=== PATIENT | male | born 1960 | race African-American/Black ===

== ENCOUNTER 2016-07-28 08:54 | Inpatient (IN) | payer OTHER, MEDICARE ==
[2016-07-28] MEDS ORDERED: FUROSEMIDE INJ/PF 40 MG/4 ML SDV IV ONE (09:45)
--- NOTE | 2016-07-28 09:45 | ER Document Report ---
ED General - General Chief Complaint: Shortness Of Breath Stated Complaint: SHORT OF BREATH Time seen by provider: 09:41 Mode of Arrival: Medic Information source: Patient Notes: 55-year-old male with 3 day history of worsening shortness of breath and diffuse swelling typical for exacerbations of anasarca that he had in the past. He also reports 3 days ago feeling a pop in the anterior portion of his left hip and now feels pain with flexion there. He denies fever, chills, nausea, vomiting, cough, earache, sore throat, chest pain, abdominal pain, or back pain. He does note he did swelling to his scrotum over the past 3 days which she says is unusual for his anasarca. Physical Exam: General: Alert, morbidly obese male with anasarca HEENT: Normocephalic. Atraumatic. PERRLA. Extraocular movements intact. Oropharynx clear. Neck: Supple. Non-tender. Respiratory: No respiratory distress. Clear and equal breath sounds bilaterally. Cardiovascular: Regular rate and rhythm. Abdominal: Normal Inspection. Soft, non-tender. No distension. Normal Bowel Sounds. . Patient is 3+ scrotal swelling but no fluctuance or crepitance erythema warmth bleeding or discharge to suggest infection. He has minimal discomfort with palpation bilaterally. Back: Non-tender. No deformity or step off. Extremities: Moves all four extremities. Upper extremities warm with 2+ pulses and no gross deformity Lower extremities have marked up otorhinorrhea and 4+ edema bilaterally. He has 2+ dorsalis pedis posterior tibial pulses and brisk capillary refill. Neurological: Oriented 3 answers questions appropriately moves all 4 extremities to command. Psychological: Normal affect. Normal Mood. Skin: Warm. Dry. Normal color. TRAVEL OUTSIDE OF THE [place] IN LAST 30 DAYS: No - Related Data Allergies/Adverse Reactions: No Known Allergies Allergy (Verified 07/28/16 09:39) Past Medical History - Social History Smoking Status: Current Some Day Smoker Chew tobacco use (# tins/day): No Frequency of alcohol use: None Drug Abuse: None Family History: Reviewed & Not Pertinent Patient has suicidal ideation: No Patient has homicidal ideation: No - Past Medical History Cardiac Medical History: Reports: Hx Atrial Fibrillation, Hx Congestive Heart Failure, Hx Coronary Artery Disease, Hx Hypercholesterolemia, Hx Hypertension, Hx Peripheral Vascular Disease, Hx Pulmonary Embolism Pulmonary Medical History: Reports: Hx COPD, Hx Sleep Apnea Renal/ Medical History: Reports: Hx Renal Insufficiency. Denies: Hx Peritoneal Dialysis GI Medical History: Reports: Hx Gastritis, Hx Ulcerative Colitis Musculoskeltal Medical History: Reports Hx Arthritis Psychiatric Medical History: Reports: Hx Depression Past Surgical History: Reports: Hx Tonsillectomy, Other - Tooth extraction - Immunizations Hx Diphtheria, Pertussis, Tetanus Vaccination: No Review of Systems - Review of Systems Constitutional: See HPI EENT: denies: Ear pain, Throat pain Cardiovascular: Edema. denies: Chest pain, Syncope Respiratory: Short of breath Gastrointestinal: denies: Abdominal pain, Nausea, Vomiting Genitourinary: denies: Burning, Dysuria Male Genitourinary: See HPI Musculoskeletal: denies: Back pain Skin: denies: Rash Hematologic/Lymphatic: denies: Swollen glands Neurological/Psychological: denies: Weakness, Numbness Physical Exam - Vital signs Vitals: Pulse Ox 97 07/28/16 09:00 Course - Re-evaluation Re-evalutation: 07/28/16 12:25 Radiologist reads chest x-ray showing right basilar infiltrate but by my review I believe that x-rays simply rotated. The patient has no white count left shift or fever here. His only mildly hypoxic which easily corrects with supplemental oxygen. He is diuresed but unknown amount with 80 mg of IV Lasix as well as the nursing staff was unable to catheterize him due to inability to identify landmarks and did not believe that an emergency department setting this warranted the dedication of physician and nursing resources necessary to get catheter in him. In any case the patient still says he feels too short of breath volume overloaded to go home. I discussed the case with Dr. Ny and he has agreed to admit the patient. - Vital Signs Vital signs: Temp Pulse Resp BP Pulse Ox 97.9 F 101 H 23 H 115/102 H 96 07/28/16 09:51 07/28/16 09:38 07/28/16 09:38 07/28/16 10:01 07/28/16 09:38 - Laboratory Result Diagrams: 07/28/16 09:09 07/28/16 09:09 Laboratory results interpreted by me: 07/28/16 07/28/16 07/28/16 09:09 09:09 09:09 Hgb 12.8 L MCHC 31.8 L RDW 17.5 H BUN 21 H Creatinine 1.62 H Est GFR ( Amer) 54 L Est GFR (Non-Af Amer) 45 L Glucose 63 L Total Bilirubin 3.2 H ALT 18 L NT-Pro-B Natriuret Pep 93397 H Albumin 3.4 L - Diagnostic Test Radiology reviewed: Image reviewed, Reports reviewed - EKG Interpretation by Me Additional EKG results interpreted by me: 07/28/16 12:25 EKG reviewed by myself shows atrial fibrillation ventricular rate of 108 with no acute changes and no significant change 06/11/2016 Discharge - Discharge Clinical Impression: Generalized edema Condition: Fair Disposition: ADMITTED INPATIENT [facility] Unit Admitted: Telemetry
[2016-07-28 10:17] LABS: ABSOLUTE EOSINOPHILS # (AUTO) 0.2 10^3/uL (0.0-0.6); ABSOLUTE LYMPHOCYTES (AUTO) 0.8 10^3/uL (0.5-4.7); ABSOLUTE MONOCYTES (AUTO) 0.5 10^3/uL (0.1-1.4); ABSOLUTE NEUT (AUTO) 2.4 10^3/uL (1.7-8.2); BASOPHILS % (AUTO) 1.2 % (0-2); EOSINOPHILS % (AUTO) 5.4 % (0-6); HEMATOCRIT 40.2 % (37.9-51.0); HEMOGLOBIN 12.8 g/dL (13.5-17.0); HGB HCT DIFFERENCE -1.8; LYMPHOCYTES % (AUTO) 19.7 % (13-45); MEAN CORPUSCULAR HEMOGLOBIN 27.1 pg (27.0-33.4); MEAN CORPUSCULAR HGB CONC 31.8 g/dL (32.0-36.0); MEAN CORPUSCULAR VOLUME 85 fl (80-97); MONOCYTES % (AUTO) 12.3 % (3-13); RED CELL DISTRIBUTION WIDTH 17.5 % (11.5-14.0); SEGMENTED NEUTROPHILS % (AUTO) 61.4 % (42-78)
[2016-07-28 10:43] LABS: ALANINE AMINOTRANSFERASE 18 U/L (21-72); ALBUMIN 3.4 g/dL (3.5-5.0); ALKALINE PHOSPHATASE 64 U/L (38-126); ANION GAP 16 (5-19); ASPARTATE AMINO TRANSFERASE 18 U/L (17-59); BILIRUBIN,TOTAL 3.2 mg/dL (0.2-1.3); BLOOD UREA NITROGEN 21 mg/dL (7-20); CARBON DIOXIDE 22 mmol/L (22-30); CHLORIDE 104 mmol/L (98-107); CREATINE KINASE 72 U/L (55-170); CREATININE RESULT 1.62 mg/dL (0.52-1.25); GLUCOSE 63 mg/dL (75-110); POTASSIUM 3.7 mmol/L (3.6-5.0); SODIUM 142.4 mmol/L (137-145); TOTAL PROTEIN 7.2 g/dL (6.3-8.2)
[2016-07-28 10:51] LABS: CREATINE KINASE MB 0.94 ng/mL (<4.55); TROPONIN I 0.022 ng/mL
[2016-07-28] MEDS: GUAIFENESIN/D-METHORPHAN (200-20 MG) SYRUP 10 ML PO PRN ×2 (15:55→23:17)
[2016-07-28] MEDS ORDERED: INFLUENZA ADLT QUAD (36MOS+) 2016-17 VAC 0.5 ML SYR IM PRN (16:09)
--- NOTE | 2016-07-28 16:28 | EKG REPORT ---
SEVERITY:- ABNORMAL ECG - ATRIAL FIBRILLATION INFERIOR INFARCT, OLD CONSIDER ANTERIOR INFARCT LATERAL LEADS ARE ALSO INVOLVED PROLONGED QT INTERVAL : Confirmed by: Juan Daniel Rodriguez MD 28-Jul-2016 16:28:35
[2016-07-28] MEDS ORDERED: APIXABAN 5 MG TABLET PO SCH (20:30)
[2016-07-28] MEDS ORDERED: MAGNESIUM OXIDE 400 MG TABLET PO SCH (20:30)
[2016-07-28] MEDS ORDERED: SIMVASTATIN 10 MG TABLET PO ONE (21:30)
[2016-07-28] MEDS: MAGNESIUM OXIDE 400 MG TABLET PO SCH (21:42)
[2016-07-28] MEDS: APIXABAN 5 MG TABLET PO SCH (21:43)
[2016-07-28] MEDS: METOPROLOL SUCCINATE 25 MG TAB.SR.24H PO SCH (21:43)
[2016-07-29] MEDS: NORMAL SALINE 250 ML with FUROSEMIDE 250 MG IV PRN ×4 (07:20→20:06)
[2016-07-29] MEDS: GUAIFENESIN/D-METHORPHAN (200-20 MG) SYRUP 10 ML PO PRN ×2 (07:40→17:13)
[2016-07-29] MEDS: METOPROLOL SUCCINATE 25 MG TAB.SR.24H PO SCH ×2 (10:10→21:20)
[2016-07-29] MEDS: MAGNESIUM OXIDE 400 MG TABLET PO SCH ×2 (10:10→21:17)
[2016-07-29] MEDS: APIXABAN 5 MG TABLET PO SCH ×2 (10:10→21:17)
[2016-07-29] MEDS: SIMVASTATIN 10 MG TABLET PO SCH (17:13)
--- NOTE | 2016-07-29 19:02 | PDOC H&P ---
[id number] History of Present Illness: ELEONORA SHEFFIELD is a 55 year old male with morbid obesity, chronic diastolic heart failure, nephrotic syndrome. He came to the emergency room because of shortness of breath and tremendous anasarca. He was recently admitted in this hospital on 06/11/2016 when he presented in a similar fashion shortness of breath, he was treated with furosemide infusion. Patient is extremely obese with body mass index 56.8. He has tremendous large abdomen. In the emergency room attempt was made to insert a Morales catheter, but it was not succesful. Past Medical History Cardiac Medical History: Reports: Atrial Fibrillation, Congestive Heart Failure , Coronary Artery Disease, Hyperlipidema, Hypertension, Peripheral Vascular Disease, Pulmonary Embolism Pulmonary Medical History: Reports: Chronic Obstructive Pulmonary Disease (COPD) , Sleep Apnea Musculoskeltal Medical History: Reports: Arthritis Psychiatric Medical History: Reports: Depression Past Surgical History Past Surgical History: Reports: Tonsillectomy, Other - Tooth extraction Social History Smoking Status: Current Some Day Smoker Frequency of Alcohol Use: None Hx Recreational Drug Use: No Drugs: None Hx Prescription Drug Abuse: No Family History Family History: Reviewed & Not Pertinent Parental Family History Reviewed: Yes Children Family History Reviewed: Yes Sibling(s) Family History Reviewed.: Yes Medication/Allergy Home Medications: Apixaban [Eliquis 5 mg Tablet] 5 mg PO BID 07/28/16 Furosemide [Lasix 40 mg Tablet] 40 mg PO TID 07/28/16 Magnesium Oxide [Mag-Ox 400 mg Tablet] 400 mg PO BID 07/28/16 Metoprolol Succinate [Toprol Xl 25 mg Tab.sr] 25 mg PO Q12 07/28/16 Simvastatin [Zocor 20 mg Tablet] 20 mg PO QPM 07/28/16 Allergies/Adverse Reactions: No Known Allergies Allergy (Verified 07/28/16 09:39) Review of Systems Constitutional: PRESENT: night sweats, weight gain Cardiovascular: PRESENT: orthropnea Respiratory: PRESENT: cough, dyspnea Gastrointestinal: PRESENT: bloating Neurological: PRESENT: abnormal gait Hematologic/Lymphatic: PRESENT: easy bruising Physical Exam Vital Signs: Temp Pulse Resp BP Pulse Ox 97.5 F 91 16 101/67 94 07/29/16 16:11 07/29/16 16:11 07/29/16 16:11 07/29/16 16:11 07/29/16 16:11 Intake & Output 07/28/16 07/29/16 07/30/16 06:59 06:59 06:59 Intake Total 780 574 Balance 780 574 Weight 189.9 kg General appearance: PRESENT: morbidly obese Eye exam: PRESENT: PERRLA Neck exam: PRESENT: other Respiratory exam: PRESENT: clear to auscultation dell Cardiovascular exam: PRESENT: +S1, +S2 GI/Abdominal exam: PRESENT: hypoactive bowel sounds Extremities exam: PRESENT: joint swelling, pedal edema, other Neurological exam: PRESENT: alert Results Impressions: Chest X-Ray 07/28/16 09:10 IMPRESSION: Right lower lobe aspiration or pneumonia. Possible peritracheal mass. Pelvis X-Ray 07/28/16 09:39 IMPRESSION: No acute findings in the pelvis. Venous Doppler Study 07/28/16 09:39 IMPRESSION: LIMITED STUDY. NO EVIDENCE DVT OR SVT IN THE LEFT LEG. Assessment & Plan - Diagnosis (1) Anasarca Is this a current diagnosis for this admission?: YesPlan: This is from combination of nephrotic syndrome, severe morbid obesity, chronic diastolic heart failure, he will be treated with intravenous furosemide infusion (2) Morbid obesity Qualifiers: Obesity type: due to excess calories Qualified Code(s): E66.01 - Morbid (severe) obesity due to excess calories Is this a current diagnosis for this admission?: Yes (3) Nephrotic syndrome Is this a current diagnosis for this admission?: Yes (4) Chronic diastolic heart failure Is this a current diagnosis for this admission?: Yes (5) Paroxysmal atrial fibrillation Is this a current diagnosis for this admission?: Yes
[2016-07-30] MEDS: METOPROLOL SUCCINATE 25 MG TAB.SR.24H PO SCH ×2 (09:39→22:52)
[2016-07-30] MEDS: MAGNESIUM OXIDE 400 MG TABLET PO SCH ×2 (09:39→22:52)
[2016-07-30] MEDS: APIXABAN 5 MG TABLET PO SCH ×2 (09:39→22:52)
[2016-07-30] MEDS: GUAIFENESIN/D-METHORPHAN (200-20 MG) SYRUP 10 ML PO PRN ×2 (09:40→19:45)
[2016-07-30] MEDS: NORMAL SALINE 250 ML with FUROSEMIDE 250 MG IV PRN ×4 (09:53→22:52)
--- NOTE | 2016-07-30 16:47 | Physician Advisory Note ---
Physician Advisor ProgressNote .: Pursuant to the plan for [facility], I have reviewed the medical record for this patient. Physician Advisor Statement: Excellent documentation of morbid obesity. Possible documentation opportunities if attending agrees: 1. ?- Do you feel this pt has "Acute on chronic systolic [& diastolic?] CHF with EF 35-40% & mod pulmonary HTN" ? - or "Acute non-cardiogenic/cardiogenic pulmonary edema due to " ? - or "chronic syst/diast CHF" only? [Pt came in w/SOB, swelling, CXR not read as having pleural effusion but ( +)cardiomegaly; EF in December was 35-40% with unclear diastolic fn due to Afib, mild concentric LVH; BNP up to 12,000 - from previous level 9850 in Jun 2016.] 2. "chronic Afib" vs. "Paroxysmal Afib" or .... - Need type specified. 3. "mild Acute Kidney Injury" [Cr baseline 1.29 on 06/25, then 1.62 on arrival ] 4. Do you believe pt has any of: "possible RLL aspiration, possible peritracheal mass, chronic interstitial dz, & cardiomegaly" reported in CXR report? Thanks for your help with documentation accuracy/specificity improvement! Shani Gimenez MD
[2016-07-30] MEDS: SIMVASTATIN 10 MG TABLET PO SCH (17:54)
--- NOTE | 2016-07-30 21:01 | PDOC PROGRESS REPORT ---
Subjective Progress Note for:: 07/29/16 Subjective:: Patient was admitted because of anasarca, presently on Lasix infusion Physical Exam Vital Signs: Temp Pulse Resp BP Pulse Ox 97.5 F 91 16 101/67 94 07/29/16 16:11 07/29/16 16:11 07/29/16 16:11 07/29/16 16:11 07/29/16 16:11 Intake & Output 07/28/16 07/29/16 07/30/16 06:59 06:59 06:59 Intake Total 780 574 Balance 780 574 Weight 189.9 kg General appearance: PRESENT: mild distress Eye exam: PRESENT: PERRLA Respiratory exam: PRESENT: decreased breath sounds Cardiovascular exam: PRESENT: +S1, +S2 GI/Abdominal exam: PRESENT: soft Neurological exam: PRESENT: alert Results Impressions: Chest X-Ray 07/28/16 09:10 IMPRESSION: Right lower lobe aspiration or pneumonia. Possible peritracheal mass. Pelvis X-Ray 07/28/16 09:39 IMPRESSION: No acute findings in the pelvis. Venous Doppler Study 07/28/16 09:39 IMPRESSION: LIMITED STUDY. NO EVIDENCE DVT OR SVT IN THE LEFT LEG. Assessment & Plan - Diagnosis (1) Anasarca Is this a current diagnosis for this admission?: Yes (2) Morbid obesity Qualifiers: Obesity type: due to excess calories Qualified Code(s): E66.01 - Morbid (severe) obesity due to excess calories Is this a current diagnosis for this admission?: Yes (3) Nephrotic syndrome Is this a current diagnosis for this admission?: Yes
--- NOTE | 2016-07-30 21:03 | PDOC PROGRESS REPORT ---
Subjective Progress Note for:: 07/30/16 Subjective:: Patient was seen by the bedside, he is on furosemide infusion and he is diuresing very well. I again explained to the that the biggest challenge is the weight Physical Exam Vital Signs: Temp Pulse Resp BP Pulse Ox 97.7 F 51 L 22 H 116/67 98 07/30/16 19:39 07/30/16 19:39 07/30/16 19:39 07/30/16 19:39 07/30/16 19:39 Intake & Output 07/29/16 07/30/16 07/31/16 06:59 06:59 06:59 Intake Total 780 1302 Balance 780 1302 Weight 189.9 kg 179.4 kg General appearance: PRESENT: morbidly obese Eye exam: PRESENT: PERRLA Cardiovascular exam: PRESENT: +S1, +S2 GI/Abdominal exam: PRESENT: other - Obese Results Laboratory Results: 07/28/16 22:00 Nasophary (Mrsa Only) MRSA Surveillance Culture - Final NO MRSA RECOVERED Impressions: Chest X-Ray 07/28/16 09:10 IMPRESSION: Right lower lobe aspiration or pneumonia. Possible peritracheal mass. Pelvis X-Ray 07/28/16 09:39 IMPRESSION: No acute findings in the pelvis. Venous Doppler Study 07/28/16 09:39 IMPRESSION: LIMITED STUDY. NO EVIDENCE DVT OR SVT IN THE LEFT LEG. Assessment & Plan - Diagnosis (1) Anasarca Is this a current diagnosis for this admission?: Yes (2) Morbid obesity Qualifiers: Obesity type: due to excess calories Qualified Code(s): E66.01 - Morbid (severe) obesity due to excess calories Is this a current diagnosis for this admission?: Yes (3) Nephrotic syndrome Is this a current diagnosis for this admission?: Yes (4) Chronic diastolic heart failure Is this a current diagnosis for this admission?: Yes (5) Paroxysmal atrial fibrillation Is this a current diagnosis for this admission?: Yes
[2016-07-30 22:30] LABS: ALANINE AMINOTRANSFERASE 18 U/L (21-72); ALBUMIN 3.4 g/dL (3.5-5.0); ALKALINE PHOSPHATASE 50 U/L (38-126); ANION GAP 11 (5-19); ASPARTATE AMINO TRANSFERASE 16 U/L (17-59); BILIRUBIN,TOTAL 1.4 mg/dL (0.2-1.3); BLOOD UREA NITROGEN 19 mg/dL (7-20); CALCIUM 9.2 mg/dL (8.4-10.2); CARBON DIOXIDE 33 mmol/L (22-30); CHLORIDE 98 mmol/L (98-107); CREATININE RESULT 1.55 mg/dL (0.52-1.25); GLUCOSE 120 mg/dL (75-110); POTASSIUM 3.3 mmol/L (3.6-5.0); SODIUM 141.8 mmol/L (137-145); TOTAL PROTEIN 6.7 g/dL (6.3-8.2)
[2016-07-31] MEDS: METOPROLOL SUCCINATE 25 MG TAB.SR.24H PO SCH ×2 (09:53→21:58)
[2016-07-31] MEDS: MAGNESIUM OXIDE 400 MG TABLET PO SCH ×2 (09:54→21:58)
[2016-07-31] MEDS: GUAIFENESIN/D-METHORPHAN (200-20 MG) SYRUP 10 ML PO PRN (09:56)
[2016-07-31] MEDS: APIXABAN 5 MG TABLET PO SCH ×2 (09:56→21:58)
[2016-07-31] MEDS ORDERED: POTASSI CL 20 MEQ/50 ML RIDER 50 ML IV ONE (13:30)
[2016-07-31 14:18] LABS: ANION GAP 10 (5-19); BLOOD UREA NITROGEN 20 mg/dL (7-20); CALCIUM 9.1 mg/dL (8.4-10.2); CARBON DIOXIDE 36 mmol/L (22-30); CHLORIDE 97 mmol/L (98-107); CREATININE RESULT 1.45 mg/dL (0.52-1.25); GLUCOSE 98 mg/dL (75-110); POTASSIUM 3.3 mmol/L (3.6-5.0); SODIUM 143.2 mmol/L (137-145)
[2016-07-31] MEDS: SIMVASTATIN 10 MG TABLET PO SCH (17:55)
[2016-07-31] MEDS: NORMAL SALINE 250 ML with FUROSEMIDE 250 MG IV PRN ×2 (17:55)
[2016-08-01] MEDS: NORMAL SALINE 250 ML with FUROSEMIDE 250 MG IV PRN ×4 (07:54→21:18)
[2016-08-01 08:19] LABS: ALANINE AMINOTRANSFERASE 21 U/L (21-72); ALBUMIN 3.5 g/dL (3.5-5.0); ALKALINE PHOSPHATASE 48 U/L (38-126); ANION GAP 8 (5-19); ASPARTATE AMINO TRANSFERASE 18 U/L (17-59); BILIRUBIN,TOTAL 1.5 mg/dL (0.2-1.3); BLOOD UREA NITROGEN 21 mg/dL (7-20); CALCIUM 9.1 mg/dL (8.4-10.2); CARBON DIOXIDE 39 mmol/L (22-30); CHLORIDE 96 mmol/L (98-107); CREATININE RESULT 1.38 mg/dL (0.52-1.25); GLUCOSE 118 mg/dL (75-110); POTASSIUM 3.6 mmol/L (3.6-5.0)
[2016-08-01] MEDS: MAGNESIUM OXIDE 400 MG TABLET PO SCH ×2 (09:37→21:18)
[2016-08-01] MEDS: APIXABAN 5 MG TABLET PO SCH ×2 (09:37→21:18)
[2016-08-01] MEDS: METOPROLOL SUCCINATE 25 MG TAB.SR.24H PO SCH ×2 (09:38→21:18)
[2016-08-01] MEDS: GUAIFENESIN/D-METHORPHAN (200-20 MG) SYRUP 10 ML PO PRN (14:59)
[2016-08-01] MEDS: SIMVASTATIN 10 MG TABLET PO SCH (18:05)
--- NOTE | 2016-08-01 19:23 | PDOC PROGRESS REPORT ---
Subjective Progress Note for:: 07/31/16 Subjective:: Patient was seen by the bedside, he continues to diurese Physical Exam Vital Signs: Temp Pulse Resp BP Pulse Ox 98.0 F 70 20 115/60 97 08/01/16 16:00 08/01/16 16:00 08/01/16 16:00 08/01/16 16:00 08/01/16 16:00 Intake & Output 07/31/16 08/01/16 08/02/16 06:59 06:59 06:59 Intake Total 1140 1615 1380 Balance 1140 1615 1380 Weight 173.2 kg 176.6 kg General appearance: PRESENT: no acute distress Eye exam: PRESENT: PERRLA Respiratory exam: PRESENT: clear to auscultation dell Cardiovascular exam: PRESENT: +S1, +S2 GI/Abdominal exam: PRESENT: soft Extremities exam: PRESENT: other - Peripheral edema Results Laboratory Results: 08/01/16 07:26 08/01/16 07:26 Sodium 143.0 Potassium 3.6 Chloride 96 L Carbon Dioxide 39 H Anion Gap 8 BUN 21 H Creatinine 1.38 H Est GFR ( Amer) > 60 Est GFR (Non-Af Amer) 54 L Glucose 118 H Calcium 9.1 Total Bilirubin 1.5 H AST 18 ALT 21 Alkaline Phosphatase 48 Total Protein 7.0 Albumin 3.5 Impressions: Chest X-Ray 07/28/16 09:10 IMPRESSION: Right lower lobe aspiration or pneumonia. Possible peritracheal mass. Pelvis X-Ray 07/28/16 09:39 IMPRESSION: No acute findings in the pelvis. Venous Doppler Study 07/28/16 09:39 IMPRESSION: LIMITED STUDY. NO EVIDENCE DVT OR SVT IN THE LEFT LEG. Assessment & Plan - Diagnosis (1) Anasarca Is this a current diagnosis for this admission?: Yes (2) Morbid obesity Qualifiers: Obesity type: due to excess calories Qualified Code(s): E66.01 - Morbid (severe) obesity due to excess calories Is this a current diagnosis for this admission?: Yes (3) Nephrotic syndrome Is this a current diagnosis for this admission?: Yes (4) Chronic diastolic heart failure Is this a current diagnosis for this admission?: Yes (5) Paroxysmal atrial fibrillation Is this a current diagnosis for this admission?: Yes
--- NOTE | 2016-08-01 19:26 | PDOC PROGRESS REPORT ---
Subjective Progress Note for:: 08/01/16 Subjective:: Patient was seen by the bedside, he continues to diurese Physical Exam Vital Signs: Temp Pulse Resp BP Pulse Ox 98.0 F 70 20 115/60 97 08/01/16 16:00 08/01/16 16:00 08/01/16 16:00 08/01/16 16:00 08/01/16 16:00 Intake & Output 07/31/16 08/01/16 08/02/16 06:59 06:59 06:59 Intake Total 1140 1615 1380 Balance 1140 1615 1380 Weight 173.2 kg 176.6 kg General appearance: PRESENT: no acute distress Eye exam: PRESENT: PERRLA Respiratory exam: PRESENT: clear to auscultation dell Cardiovascular exam: PRESENT: +S1, +S2 GI/Abdominal exam: PRESENT: soft Results Laboratory Results: 08/01/16 07:26 08/01/16 07:26 Sodium 143.0 Potassium 3.6 Chloride 96 L Carbon Dioxide 39 H Anion Gap 8 BUN 21 H Creatinine 1.38 H Est GFR ( Amer) > 60 Est GFR (Non-Af Amer) 54 L Glucose 118 H Calcium 9.1 Total Bilirubin 1.5 H AST 18 ALT 21 Alkaline Phosphatase 48 Total Protein 7.0 Albumin 3.5 Impressions: Chest X-Ray 07/28/16 09:10 IMPRESSION: Right lower lobe aspiration or pneumonia. Possible peritracheal mass. Pelvis X-Ray 07/28/16 09:39 IMPRESSION: No acute findings in the pelvis. Venous Doppler Study 07/28/16 09:39 IMPRESSION: LIMITED STUDY. NO EVIDENCE DVT OR SVT IN THE LEFT LEG. Assessment & Plan - Diagnosis (1) Anasarca Is this a current diagnosis for this admission?: Yes (2) Morbid obesity Qualifiers: Obesity type: due to excess calories Qualified Code(s): E66.01 - Morbid (severe) obesity due to excess calories Is this a current diagnosis for this admission?: Yes (3) Nephrotic syndrome Is this a current diagnosis for this admission?: Yes (4) Chronic diastolic heart failure Is this a current diagnosis for this admission?: Yes (5) Paroxysmal atrial fibrillation Is this a current diagnosis for this admission?: Yes
[2016-08-02 08:44] LABS: ALANINE AMINOTRANSFERASE 17 U/L (21-72); ALBUMIN 3.1 g/dL (3.5-5.0); ALKALINE PHOSPHATASE 52 U/L (38-126); ANION GAP 9 (5-19); ASPARTATE AMINO TRANSFERASE 20 U/L (17-59); BILIRUBIN,TOTAL 1.4 mg/dL (0.2-1.3); BLOOD UREA NITROGEN 27 mg/dL (7-20); CARBON DIOXIDE 38 mmol/L (22-30); CHLORIDE 95 mmol/L (98-107); CREATININE RESULT 1.43 mg/dL (0.52-1.25); GLUCOSE 87 mg/dL (75-110); POTASSIUM 3.6 mmol/L (3.6-5.0); SODIUM 141.7 mmol/L (137-145)
[2016-08-02] MEDS: NORMAL SALINE 250 ML with FUROSEMIDE 250 MG IV PRN ×4 (09:25→23:22)
[2016-08-02] MEDS: GUAIFENESIN/D-METHORPHAN (200-20 MG) SYRUP 10 ML PO PRN ×2 (09:26→23:31)
[2016-08-02] MEDS: APIXABAN 5 MG TABLET PO SCH ×2 (09:26→23:22)
[2016-08-02] MEDS: METOPROLOL SUCCINATE 25 MG TAB.SR.24H PO SCH ×2 (09:26→23:22)
[2016-08-02] MEDS: MAGNESIUM OXIDE 400 MG TABLET PO SCH ×2 (09:27→23:19)
[2016-08-02] MEDS: SIMVASTATIN 10 MG TABLET PO SCH (17:40)
--- NOTE | 2016-08-02 19:15 | PDOC PROGRESS REPORT ---
Subjective Progress Note for:: 08/02/16 Subjective:: Patient was seen by the bedside, he continues to diurese Physical Exam Vital Signs: Temp Pulse Resp BP Pulse Ox 98.1 F 59 L 18 107/57 L 99 08/02/16 17:02 08/02/16 17:02 08/02/16 17:02 08/02/16 18:00 08/02/16 17:02 Intake & Output 08/01/16 08/02/16 08/03/16 06:59 06:59 06:59 Intake Total 1615 2500 1344 Balance 1615 2500 1344 Weight 176.6 kg General appearance: PRESENT: no acute distress Eye exam: PRESENT: PERRLA Respiratory exam: PRESENT: clear to auscultation dell Cardiovascular exam: PRESENT: +S1, +S2 Results Laboratory Results: 08/02/16 07:35 08/02/16 07:35 Sodium 141.7 Potassium 3.6 Chloride 95 L Carbon Dioxide 38 H Anion Gap 9 BUN 27 H Creatinine 1.43 H Est GFR ( Amer) > 60 Est GFR (Non-Af Amer) 52 L Glucose 87 Calcium 9.0 Total Bilirubin 1.4 H AST 20 ALT 17 L Alkaline Phosphatase 52 Total Protein 7.0 Albumin 3.1 L Impressions: Chest X-Ray 07/28/16 09:10 IMPRESSION: Right lower lobe aspiration or pneumonia. Possible peritracheal mass. Pelvis X-Ray 07/28/16 09:39 IMPRESSION: No acute findings in the pelvis. Venous Doppler Study 07/28/16 09:39 IMPRESSION: LIMITED STUDY. NO EVIDENCE DVT OR SVT IN THE LEFT LEG. Assessment & Plan - Diagnosis (1) Anasarca Is this a current diagnosis for this admission?: Yes (2) Morbid obesity Qualifiers: Obesity type: due to excess calories Qualified Code(s): E66.01 - Morbid (severe) obesity due to excess calories Is this a current diagnosis for this admission?: Yes (3) Nephrotic syndrome Is this a current diagnosis for this admission?: Yes (4) Chronic diastolic heart failure Is this a current diagnosis for this admission?: Yes (5) Paroxysmal atrial fibrillation Is this a current diagnosis for this admission?: Yes
[2016-08-03 09:19] LABS: ALANINE AMINOTRANSFERASE 15 U/L (21-72); ALBUMIN 3.3 g/dL (3.5-5.0); ALKALINE PHOSPHATASE 52 U/L (38-126); ASPARTATE AMINO TRANSFERASE 18 U/L (17-59); BILIRUBIN,TOTAL 1.5 mg/dL (0.2-1.3); BLOOD UREA NITROGEN 28 mg/dL (7-20); CALCIUM 8.8 mg/dL (8.4-10.2); CHLORIDE 94 mmol/L (98-107); CREATININE RESULT 1.44 mg/dL (0.52-1.25); GLUCOSE 126 mg/dL (75-110); POTASSIUM 3.5 mmol/L (3.6-5.0); TOTAL PROTEIN 6.7 g/dL (6.3-8.2)
[2016-08-03 09:34] LABS: ANION GAP 9 (5-19); SODIUM 142.3 mmol/L (137-145)
[2016-08-03 09:37] LABS: CARBON DIOXIDE 39 mmol/L (22-30)
[2016-08-03] MEDS: METOPROLOL SUCCINATE 25 MG TAB.SR.24H PO SCH (10:00)
[2016-08-03] MEDS: MAGNESIUM OXIDE 400 MG TABLET PO SCH ×2 (10:27→21:20)
[2016-08-03] MEDS: APIXABAN 5 MG TABLET PO SCH ×2 (10:27→21:20)
[2016-08-03] MEDS: SIMVASTATIN 10 MG TABLET PO SCH (17:20)
[2016-08-04] MEDS: METOPROLOL SUCCINATE 25 MG TAB.SR.24H PO SCH ×3 (01:39→21:58)
[2016-08-04] MEDS: GUAIFENESIN/D-METHORPHAN (200-20 MG) SYRUP 10 ML PO PRN ×2 (01:59→22:03)
[2016-08-04] MEDS: NORMAL SALINE 250 ML with FUROSEMIDE 250 MG IV PRN ×2 (04:38)
[2016-08-04 07:59] LABS: ALANINE AMINOTRANSFERASE 24 U/L (21-72); ALKALINE PHOSPHATASE 57 U/L (38-126); ASPARTATE AMINO TRANSFERASE 23 U/L (17-59); BILIRUBIN,TOTAL 1.4 mg/dL (0.2-1.3); BLOOD UREA NITROGEN 33 mg/dL (7-20); CALCIUM 8.9 mg/dL (8.4-10.2); CHLORIDE 94 mmol/L (98-107); CREATININE RESULT 1.56 mg/dL (0.52-1.25); GLUCOSE 93 mg/dL (75-110); POTASSIUM 3.9 mmol/L (3.6-5.0); SODIUM 141.8 mmol/L (137-145); TOTAL PROTEIN 6.9 g/dL (6.3-8.2)
[2016-08-04 08:23] LABS: ANION GAP 6 (5-19)
[2016-08-04 08:33] LABS: CARBON DIOXIDE 42 mmol/L (22-30)
[2016-08-04] MEDS: APIXABAN 5 MG TABLET PO SCH ×2 (10:56→22:03)
[2016-08-04] MEDS: MAGNESIUM OXIDE 400 MG TABLET PO SCH ×2 (10:57→22:03)
[2016-08-04] MEDS: SIMVASTATIN 10 MG TABLET PO SCH (18:57)
--- NOTE | 2016-08-04 19:34 | PDOC PROGRESS REPORT ---
Subjective Progress Note for:: 08/03/16 Subjective:: Patient was seen by the bedside, he continues to diurese, we reduced the dose of Lasix infusion to 10 MG/HR. He is almost down to his dry weight Physical Exam Vital Signs: Temp Pulse Resp BP Pulse Ox 97.7 F 72 16 114/59 L 97 08/03/16 18:02 08/03/16 18:02 08/03/16 18:02 08/03/16 18:02 08/03/16 18:02 Intake & Output 08/02/16 08/03/16 08/04/16 06:59 06:59 06:59 Intake Total 2500 1724 1200 Balance 2500 1724 1200 Weight 174.4 kg General appearance: PRESENT: no acute distress Eye exam: PRESENT: PERRLA Cardiovascular exam: PRESENT: +S1, +S2 GI/Abdominal exam: PRESENT: soft Neurological exam: PRESENT: alert Results Laboratory Results: 08/03/16 08:34 08/03/16 08:34 Sodium 142.3 Potassium 3.5 L Chloride 94 L Carbon Dioxide 39 H Anion Gap 9 BUN 28 H Creatinine 1.44 H Est GFR ( Amer) > 60 Est GFR (Non-Af Amer) 51 L Glucose 126 H Calcium 8.8 Total Bilirubin 1.5 H AST 18 ALT 15 L Alkaline Phosphatase 52 Total Protein 6.7 Albumin 3.3 L Impressions: Chest X-Ray 07/28/16 09:10 IMPRESSION: Right lower lobe aspiration or pneumonia. Possible peritracheal mass. Pelvis X-Ray 07/28/16 09:39 IMPRESSION: No acute findings in the pelvis. Venous Doppler Study 07/28/16 09:39 IMPRESSION: LIMITED STUDY. NO EVIDENCE DVT OR SVT IN THE LEFT LEG. Assessment & Plan - Diagnosis (1) Anasarca Is this a current diagnosis for this admission?: Yes (2) Morbid obesity Qualifiers: Obesity type: due to excess calories Qualified Code(s): E66.01 - Morbid (severe) obesity due to excess calories Is this a current diagnosis for this admission?: Yes (3) Nephrotic syndrome Is this a current diagnosis for this admission?: Yes (4) Chronic diastolic heart failure Is this a current diagnosis for this admission?: Yes (5) Paroxysmal atrial fibrillation Is this a current diagnosis for this admission?: Yes
[2016-08-04] MEDS: PHARMACY COMMUNICATION ORDER MC SCH (21:55)
[2016-08-05 07:38] LABS: ALANINE AMINOTRANSFERASE 24 U/L (21-72); ALKALINE PHOSPHATASE 52 U/L (38-126); ASPARTATE AMINO TRANSFERASE 24 U/L (17-59); BILIRUBIN,TOTAL 1.4 mg/dL (0.2-1.3); BLOOD UREA NITROGEN 34 mg/dL (7-20); CALCIUM 8.9 mg/dL (8.4-10.2); CHLORIDE 93 mmol/L (98-107); CREATININE RESULT 1.43 mg/dL (0.52-1.25); GLUCOSE 116 mg/dL (75-110); POTASSIUM 3.8 mmol/L (3.6-5.0); SODIUM 140.9 mmol/L (137-145); TOTAL PROTEIN 6.7 g/dL (6.3-8.2)
[2016-08-05 08:02] LABS: ANION GAP 9 (5-19)
[2016-08-05 08:06] LABS: CARBON DIOXIDE 39 mmol/L (22-30)
[2016-08-05] MEDS: APIXABAN 5 MG TABLET PO SCH ×2 (11:53→21:10)
[2016-08-05] MEDS: METOPROLOL SUCCINATE 25 MG TAB.SR.24H PO SCH (11:53)
[2016-08-05] MEDS: MAGNESIUM OXIDE 400 MG TABLET PO SCH ×2 (11:54→21:10)
[2016-08-05] MEDS: NORMAL SALINE 250 ML with FUROSEMIDE 250 MG IV PRN ×2 (13:46)
[2016-08-05] MEDS: GUAIFENESIN/D-METHORPHAN (200-20 MG) SYRUP 10 ML PO PRN (13:48)
--- NOTE | 2016-08-05 17:57 | PDOC PROGRESS REPORT ---
Subjective Progress Note for:: 08/04/16 Subjective:: Patient seen by the bedside, he has contraction alkalosis from the continuous furosemide infusion Physical Exam Vital Signs: Temp Pulse Resp BP Pulse Ox 98.3 F 81 20 119/74 96 08/04/16 04:57 08/04/16 14:00 08/04/16 04:57 08/04/16 04:57 08/04/16 04:57 Intake & Output 08/03/16 08/04/16 08/05/16 06:59 06:59 06:59 Intake Total 1724 1950 980 Output Total 200 Balance 1724 1750 980 Weight 174.4 kg General appearance: PRESENT: no acute distress Eye exam: PRESENT: PERRLA Cardiovascular exam: PRESENT: +S1, +S2 GI/Abdominal exam: PRESENT: ascites Neurological exam: PRESENT: alert Results Laboratory Results: 08/04/16 07:02 08/04/16 07:02 Sodium 141.8 Potassium 3.9 Chloride 94 L Carbon Dioxide 42 H* Anion Gap 6 BUN 33 H Creatinine 1.56 H Est GFR ( Amer) 57 L Est GFR (Non-Af Amer) 47 L Glucose 93 Calcium 8.9 Total Bilirubin 1.4 H AST 23 ALT 24 Alkaline Phosphatase 57 Total Protein 6.9 Albumin 3.0 L Impressions: Chest X-Ray 07/28/16 09:10 IMPRESSION: Right lower lobe aspiration or pneumonia. Possible peritracheal mass. Pelvis X-Ray 07/28/16 09:39 IMPRESSION: No acute findings in the pelvis. Venous Doppler Study 07/28/16 09:39 IMPRESSION: LIMITED STUDY. NO EVIDENCE DVT OR SVT IN THE LEFT LEG. Assessment & Plan - Diagnosis (1) Anasarca Is this a current diagnosis for this admission?: Yes (2) Morbid obesity Qualifiers: Obesity type: due to excess calories Qualified Code(s): E66.01 - Morbid (severe) obesity due to excess calories Is this a current diagnosis for this admission?: Yes (3) Nephrotic syndrome Is this a current diagnosis for this admission?: Yes (4) Chronic diastolic heart failure Is this a current diagnosis for this admission?: Yes (5) Paroxysmal atrial fibrillation Is this a current diagnosis for this admission?: Yes
[2016-08-05] MEDS: SIMVASTATIN 10 MG TABLET PO SCH (18:54)
[2016-08-05] MEDS: PHARMACY COMMUNICATION ORDER MC SCH (19:18)
[2016-08-06] MEDS: METOPROLOL SUCCINATE 25 MG TAB.SR.24H PO SCH ×2 (00:01→09:22)
[2016-08-06] MEDS: GUAIFENESIN/D-METHORPHAN (200-20 MG) SYRUP 10 ML PO PRN (03:01)
[2016-08-06] MEDS: APIXABAN 5 MG TABLET PO SCH ×2 (09:21→22:15)
[2016-08-06] MEDS: MAGNESIUM OXIDE 400 MG TABLET PO SCH ×2 (09:22→22:15)
[2016-08-06 09:39] LABS: ALANINE AMINOTRANSFERASE 20 U/L (21-72); ALKALINE PHOSPHATASE 57 U/L (38-126); ASPARTATE AMINO TRANSFERASE 22 U/L (17-59); BILIRUBIN,TOTAL 1.4 mg/dL (0.2-1.3); BLOOD UREA NITROGEN 33 mg/dL (7-20); CALCIUM 8.9 mg/dL (8.4-10.2); CHLORIDE 93 mmol/L (98-107); CREATININE RESULT 1.44 mg/dL (0.52-1.25); GLUCOSE 113 mg/dL (75-110); SODIUM 140.2 mmol/L (137-145); TOTAL PROTEIN 6.8 g/dL (6.3-8.2)
[2016-08-06 09:48] LABS: ANION GAP 6 (5-19)
[2016-08-06 09:57] LABS: CARBON DIOXIDE 41 mmol/L (22-30)
[2016-08-06] MEDS ORDERED: DIPHENHYDRAMINE HCL 25 MG CAPSULE PO PRN (11:08)
[2016-08-06] MEDS: DIPHENHYDRAMINE HCL 25 MG CAPSULE PO PRN ×2 (12:30→23:56)
[2016-08-06] MEDS: NORMAL SALINE 250 ML with FUROSEMIDE 250 MG IV PRN ×2 (17:08)
[2016-08-06] MEDS: PHARMACY COMMUNICATION ORDER MC SCH (18:30)
[2016-08-06] MEDS: SIMVASTATIN 10 MG TABLET PO SCH (18:31)
[2016-08-06] MEDS ORDERED: NORMAL SALINE 250 ML with FUROSEMIDE 250 MG IV PRN ×2 (20:13)
[2016-08-07] MEDS: METOPROLOL SUCCINATE 25 MG TAB.SR.24H PO SCH ×3 (02:58→22:48)
[2016-08-07] MEDS: GUAIFENESIN/D-METHORPHAN (200-20 MG) SYRUP 10 ML PO PRN ×2 (03:00→23:14)
[2016-08-07 07:37] LABS: ALANINE AMINOTRANSFERASE 30 U/L (21-72); ALBUMIN 2.8 g/dL (3.5-5.0); ALKALINE PHOSPHATASE 53 U/L (38-126); ASPARTATE AMINO TRANSFERASE 26 U/L (17-59); BILIRUBIN,TOTAL 1.7 mg/dL (0.2-1.3); BLOOD UREA NITROGEN 39 mg/dL (7-20); CHLORIDE 94 mmol/L (98-107); CREATININE RESULT 1.38 mg/dL (0.52-1.25); GLUCOSE 91 mg/dL (75-110); POTASSIUM 4.3 mmol/L (3.6-5.0); SODIUM 140.1 mmol/L (137-145); TOTAL PROTEIN 6.5 g/dL (6.3-8.2)
[2016-08-07 07:43] LABS: ANION GAP 7 (5-19); CARBON DIOXIDE 39 mmol/L (22-30)
[2016-08-07] MEDS: MAGNESIUM OXIDE 400 MG TABLET PO SCH ×2 (10:02→22:48)
[2016-08-07] MEDS: APIXABAN 5 MG TABLET PO SCH ×2 (10:02→22:48)
[2016-08-07] MEDS: SIMVASTATIN 10 MG TABLET PO SCH (17:43)
[2016-08-07] MEDS: DIPHENHYDRAMINE HCL 25 MG CAPSULE PO PRN (17:55)
[2016-08-07] MEDS: PHARMACY COMMUNICATION ORDER MC SCH (18:00)
--- NOTE | 2016-08-07 21:16 | PDOC PROGRESS REPORT ---
Subjective Progress Note for:: 08/06/16 Subjective:: Patient seen by the bedside, he has contraction alkalosis from the continuous furosemide infusion Physical Exam Vital Signs: Temp Pulse Resp BP Pulse Ox 97.4 F 58 L 18 105/58 L 99 08/06/16 19:06 08/06/16 19:06 08/06/16 19:06 08/06/16 19:06 08/06/16 19:06 Intake & Output 08/05/16 08/06/16 08/07/16 06:59 06:59 06:59 Intake Total 0 2064 1141 Output Total 9 Balance 1819 2064 1132 General appearance: PRESENT: no acute distress Eye exam: PRESENT: PERRLA Respiratory exam: PRESENT: clear to auscultation dlel Cardiovascular exam: PRESENT: +S1, +S2 GI/Abdominal exam: PRESENT: firm Results Laboratory Results: 08/06/16 08:45 08/06/16 08:45 Sodium 140.2 Potassium 4.0 Chloride 93 L Carbon Dioxide 41 H* Anion Gap 6 BUN 33 H Creatinine 1.44 H Est GFR ( Amer) > 60 Est GFR (Non-Af Amer) 51 L Glucose 113 H Calcium 8.9 Total Bilirubin 1.4 H AST 22 ALT 20 L Alkaline Phosphatase 57 Total Protein 6.8 Albumin 3.0 L Impressions: Chest X-Ray 07/28/16 09:10 IMPRESSION: Right lower lobe aspiration or pneumonia. Possible peritracheal mass. Pelvis X-Ray 07/28/16 09:39 IMPRESSION: No acute findings in the pelvis. Venous Doppler Study 07/28/16 09:39 IMPRESSION: LIMITED STUDY. NO EVIDENCE DVT OR SVT IN THE LEFT LEG. Assessment & Plan - Diagnosis (1) Anasarca Is this a current diagnosis for this admission?: Yes (2) Morbid obesity Qualifiers: Obesity type: due to excess calories Qualified Code(s): E66.01 - Morbid (severe) obesity due to excess calories Is this a current diagnosis for this admission?: Yes (3) Nephrotic syndrome Is this a current diagnosis for this admission?: Yes (4) Chronic diastolic heart failure Is this a current diagnosis for this admission?: Yes (5) Paroxysmal atrial fibrillation Is this a current diagnosis for this admission?: Yes
--- NOTE | 2016-08-07 21:17 | PDOC PROGRESS REPORT ---
Subjective Progress Note for:: 08/05/16 Subjective:: Patient is seen by the bedside, still on IV furosemide Physical Exam Vital Signs: Temp Pulse Resp BP Pulse Ox 97.4 F 58 L 18 105/58 L 99 08/06/16 19:06 08/06/16 19:06 08/06/16 19:06 08/06/16 19:06 08/06/16 19:06 Intake & Output 08/05/16 08/06/16 08/07/16 06:59 06:59 06:59 Intake Total 1820 2064 1141 Output Total 9 Balance 0 2064 1132 General appearance: PRESENT: no acute distress Eye exam: PRESENT: PERRLA Respiratory exam: PRESENT: clear to auscultation dell Cardiovascular exam: PRESENT: +S1, +S2 GI/Abdominal exam: PRESENT: soft Neurological exam: PRESENT: alert Results Laboratory Results: 08/06/16 08:45 08/06/16 08:45 Sodium 140.2 Potassium 4.0 Chloride 93 L Carbon Dioxide 41 H* Anion Gap 6 BUN 33 H Creatinine 1.44 H Est GFR ( Amer) > 60 Est GFR (Non-Af Amer) 51 L Glucose 113 H Calcium 8.9 Total Bilirubin 1.4 H AST 22 ALT 20 L Alkaline Phosphatase 57 Total Protein 6.8 Albumin 3.0 L Impressions: Chest X-Ray 07/28/16 09:10 IMPRESSION: Right lower lobe aspiration or pneumonia. Possible peritracheal mass. Pelvis X-Ray 07/28/16 09:39 IMPRESSION: No acute findings in the pelvis. Venous Doppler Study 07/28/16 09:39 IMPRESSION: LIMITED STUDY. NO EVIDENCE DVT OR SVT IN THE LEFT LEG. Assessment & Plan - Diagnosis (1) Anasarca Is this a current diagnosis for this admission?: Yes (2) Morbid obesity Qualifiers: Obesity type: due to excess calories Qualified Code(s): E66.01 - Morbid (severe) obesity due to excess calories Is this a current diagnosis for this admission?: Yes (3) Nephrotic syndrome Is this a current diagnosis for this admission?: Yes (4) Chronic diastolic heart failure Is this a current diagnosis for this admission?: Yes (5) Paroxysmal atrial fibrillation Is this a current diagnosis for this admission?: Yes
--- NOTE | 2016-08-07 21:18 | PDOC PROGRESS REPORT ---
Subjective Progress Note for:: 08/07/16 Subjective:: Patient seen by the bedside, on low dose IV furosemide Physical Exam Vital Signs: Temp Pulse Resp BP Pulse Ox 98.4 F 45 L 18 100/66 97 08/07/16 19:52 08/07/16 19:52 08/07/16 19:52 08/07/16 19:52 08/07/16 19:52 Intake & Output 08/06/16 08/07/16 08/08/16 06:59 06:59 06:59 Intake Total 2064 1715 1978 Output Total 9 Balance 2064 1706 1978 Weight 174.6 kg General appearance: PRESENT: no acute distress Eye exam: PRESENT: PERRLA Respiratory exam: PRESENT: clear to auscultation dell Cardiovascular exam: PRESENT: +S1, +S2 GI/Abdominal exam: PRESENT: soft Neurological exam: PRESENT: alert, CN II-XII grossly intact Results Laboratory Results: 08/07/16 07:09 08/07/16 07:09 Sodium 140.1 Potassium 4.3 Chloride 94 L Carbon Dioxide 39 H Anion Gap 7 BUN 39 H Creatinine 1.38 H Est GFR ( Amer) > 60 Est GFR (Non-Af Amer) 54 L Glucose 91 Calcium 9.0 Total Bilirubin 1.7 H AST 26 ALT 30 Alkaline Phosphatase 53 Total Protein 6.5 Albumin 2.8 L Impressions: Chest X-Ray 07/28/16 09:10 IMPRESSION: Right lower lobe aspiration or pneumonia. Possible peritracheal mass. Pelvis X-Ray 07/28/16 09:39 IMPRESSION: No acute findings in the pelvis. Venous Doppler Study 07/28/16 09:39 IMPRESSION: LIMITED STUDY. NO EVIDENCE DVT OR SVT IN THE LEFT LEG. Assessment & Plan - Diagnosis (1) Anasarca Is this a current diagnosis for this admission?: Yes (2) Morbid obesity Qualifiers: Obesity type: due to excess calories Qualified Code(s): E66.01 - Morbid (severe) obesity due to excess calories Is this a current diagnosis for this admission?: Yes (3) Nephrotic syndrome Is this a current diagnosis for this admission?: Yes (4) Chronic diastolic heart failure Is this a current diagnosis for this admission?: Yes (5) Paroxysmal atrial fibrillation Is this a current diagnosis for this admission?: Yes
[2016-08-08 07:27] LABS: ALANINE AMINOTRANSFERASE 35 U/L (21-72); ALKALINE PHOSPHATASE 62 U/L (38-126); ANION GAP 7 (5-19); ASPARTATE AMINO TRANSFERASE 23 U/L (17-59); BILIRUBIN,TOTAL 1.6 mg/dL (0.2-1.3); BLOOD UREA NITROGEN 38 mg/dL (7-20); CALCIUM 9.1 mg/dL (8.4-10.2); CARBON DIOXIDE 37 mmol/L (22-30); CHLORIDE 94 mmol/L (98-107); CREATININE RESULT 1.45 mg/dL (0.52-1.25); GLUCOSE 87 mg/dL (75-110); POTASSIUM 4.5 mmol/L (3.6-5.0); SODIUM 138.4 mmol/L (137-145); TOTAL PROTEIN 6.9 g/dL (6.3-8.2)
[2016-08-08] MEDS: MAGNESIUM OXIDE 400 MG TABLET PO SCH ×2 (10:18→23:38)
[2016-08-08] MEDS: METOPROLOL SUCCINATE 25 MG TAB.SR.24H PO SCH ×2 (10:18→23:38)
[2016-08-08] MEDS: APIXABAN 5 MG TABLET PO SCH ×2 (10:18→23:37)
--- NOTE | 2016-08-08 11:08 | PDOC PROGRESS REPORT ---
Subjective Progress Note for:: 08/08/16 Subjective:: Patient is doing well denied any chest pain or any shortness of the breath still currently on IV Lasix drips and patient is swelling is much better Physical Exam Vital Signs: Temp Pulse Resp BP Pulse Ox 98.1 F 43 L 21 H 112/69 96 08/08/16 07:52 08/08/16 07:52 08/08/16 07:52 08/08/16 07:52 08/08/16 07:52 Intake & Output 08/07/16 08/08/16 08/09/16 06:59 06:59 06:59 Intake Total 1716 2594 Output Total 9 Balance 1707 2594 Weight 174.6 kg General appearance: PRESENT: no acute distress, obese Head exam: PRESENT: normocephalic Eye exam: PRESENT: PERRLA Mouth exam: PRESENT: neck supple Respiratory exam: PRESENT: decreased breath sounds Cardiovascular exam: PRESENT: +S1, +S2 GI/Abdominal exam: PRESENT: normal bowel sounds, soft Extremities exam: PRESENT: pedal edema Neurological exam: PRESENT: alert, awake, oriented to person Psychiatric exam: PRESENT: normal mood Results Laboratory Results: 08/08/16 06:43 08/08/16 06:43 Sodium 138.4 Potassium 4.5 Chloride 94 L Carbon Dioxide 37 H Anion Gap 7 BUN 38 H Creatinine 1.45 H Est GFR ( Amer) > 60 Est GFR (Non-Af Amer) 51 L Glucose 87 Calcium 9.1 Total Bilirubin 1.6 H AST 23 ALT 35 Alkaline Phosphatase 62 Total Protein 6.9 Albumin 3.0 L Impressions: Chest X-Ray 07/28/16 09:10 IMPRESSION: Right lower lobe aspiration or pneumonia. Possible peritracheal mass. Pelvis X-Ray 07/28/16 09:39 IMPRESSION: No acute findings in the pelvis. Venous Doppler Study 07/28/16 09:39 IMPRESSION: LIMITED STUDY. NO EVIDENCE DVT OR SVT IN THE LEFT LEG. Assessment & Plan - Diagnosis (1) Anasarca Is this a current diagnosis for this admission?: YesPlan: We will DC the IV Lasix drip that the by mouth Lasix distributed the floor 1500 mL (2) Chronic diastolic heart failure Is this a current diagnosis for this admission?: YesPlan: Start the by mouth Lasix (3) Paroxysmal atrial fibrillation Is this a current diagnosis for this admission?: YesPlan: Continuous current medications (4) Morbid obesity Qualifiers: Obesity type: due to excess calories Qualified Code(s): E66.01 - Morbid (severe) obesity due to excess calories Is this a current diagnosis for this admission?: YesPlan: Stable - Time Time Spent with patient: 15-24 minutes Medications reviewed and adjusted accordingly: Yes - Inpatient Certification Medical Necessity: Need Close Monitoring Due to Risk of Patient Decompensation - Plan Summary Plan Summary: DC the IV Lasix drips and start the by mouth Lasix
[2016-08-08] MEDS: DIPHENHYDRAMINE HCL 25 MG CAPSULE PO PRN (11:50)
[2016-08-08] MEDS: FUROSEMIDE 40 MG TABLET PO SCH (18:06)
[2016-08-08] MEDS: SIMVASTATIN 10 MG TABLET PO SCH (18:07)
[2016-08-08] MEDS: PHARMACY COMMUNICATION ORDER MC SCH (18:07)
[2016-08-09] MEDS: DIPHENHYDRAMINE HCL 25 MG CAPSULE PO PRN (01:26)
[2016-08-09 08:36] LABS: ALANINE AMINOTRANSFERASE 28 U/L (21-72); ALKALINE PHOSPHATASE 68 U/L (38-126); ANION GAP 7 (5-19); ASPARTATE AMINO TRANSFERASE 23 U/L (17-59); BILIRUBIN,TOTAL 1.4 mg/dL (0.2-1.3); BLOOD UREA NITROGEN 37 mg/dL (7-20); CALCIUM 9.3 mg/dL (8.4-10.2); CARBON DIOXIDE 39 mmol/L (22-30); CHLORIDE 94 mmol/L (98-107); CREATININE RESULT 1.46 mg/dL (0.52-1.25); GLUCOSE 85 mg/dL (75-110); POTASSIUM 4.5 mmol/L (3.6-5.0); SODIUM 140.1 mmol/L (137-145); TOTAL PROTEIN 6.9 g/dL (6.3-8.2)
[2016-08-09] MEDS: METOPROLOL SUCCINATE 25 MG TAB.SR.24H PO SCH ×2 (09:52→22:33)
[2016-08-09] MEDS: FUROSEMIDE 40 MG TABLET PO SCH ×2 (09:52→17:15)
[2016-08-09] MEDS: APIXABAN 5 MG TABLET PO SCH ×2 (09:53→22:33)
[2016-08-09] MEDS: MAGNESIUM OXIDE 400 MG TABLET PO SCH ×2 (09:53→22:34)
[2016-08-09] MEDS: GUAIFENESIN/D-METHORPHAN (200-20 MG) SYRUP 10 ML PO PRN (09:54)
--- NOTE | 2016-08-09 13:47 | PDOC PROGRESS REPORT ---
Subjective Progress Note for:: 08/09/16 Subjective:: Patient is doing well denied any chest pain or any shortness of the breath still currently on IV Lasix drips and patient is swelling is much better Physical Exam Vital Signs: Temp Pulse Resp BP Pulse Ox 98.6 F 70 17 106/59 L 95 08/09/16 12:08 08/09/16 12:08 08/09/16 12:08 08/09/16 12:08 08/09/16 12:08 Intake & Output 08/08/16 08/09/16 08/10/16 06:59 06:59 06:59 Intake Total 2594 1315 Balance 2594 1315 Weight 175 kg General appearance: PRESENT: no acute distress Head exam: PRESENT: normocephalic Eye exam: PRESENT: PERRLA Mouth exam: PRESENT: neck supple Respiratory exam: PRESENT: decreased breath sounds Cardiovascular exam: PRESENT: +S1, +S2 GI/Abdominal exam: PRESENT: normal bowel sounds, soft Extremities exam: PRESENT: pedal edema Neurological exam: PRESENT: alert, awake, oriented to person, oriented to place , oriented to time, oriented to situation Results Laboratory Results: 08/09/16 07:42 08/09/16 07:42 Sodium 140.1 Potassium 4.5 Chloride 94 L Carbon Dioxide 39 H Anion Gap 7 BUN 37 H Creatinine 1.46 H Est GFR ( Amer) > 60 Est GFR (Non-Af Amer) 51 L Glucose 85 Calcium 9.3 Total Bilirubin 1.4 H AST 23 ALT 28 Alkaline Phosphatase 68 Total Protein 6.9 Albumin 3.0 L Impressions: Chest X-Ray 07/28/16 09:10 IMPRESSION: Right lower lobe aspiration or pneumonia. Possible peritracheal mass. Pelvis X-Ray 07/28/16 09:39 IMPRESSION: No acute findings in the pelvis. Venous Doppler Study 07/28/16 09:39 IMPRESSION: LIMITED STUDY. NO EVIDENCE DVT OR SVT IN THE LEFT LEG. Assessment & Plan - Diagnosis (1) Anasarca Is this a current diagnosis for this admission?: YesPlan: Continues the by mouth Lasix (2) Chronic diastolic heart failure Is this a current diagnosis for this admission?: YesPlan: Start the by mouth Lasix (3) Paroxysmal atrial fibrillation Is this a current diagnosis for this admission?: YesPlan: Continuous current medications (4) Morbid obesity Qualifiers: Obesity type: due to excess calories Qualified Code(s): E66.01 - Morbid (severe) obesity due to excess calories Is this a current diagnosis for this admission?: YesPlan: Stable - Time Time Spent with patient: 15-24 minutes Medications reviewed and adjusted accordingly: Yes Anticipated discharge: Home with Homehealth - Inpatient Certification Medical Necessity: Need Close Monitoring Due to Risk of Patient Decompensation
[2016-08-09] MEDS: SIMVASTATIN 10 MG TABLET PO SCH (17:15)
[2016-08-10 07:28] LABS: ALANINE AMINOTRANSFERASE 26 U/L (21-72); ALBUMIN 3.1 g/dL (3.5-5.0); ALKALINE PHOSPHATASE 71 U/L (38-126); ANION GAP 8 (5-19); ASPARTATE AMINO TRANSFERASE 22 U/L (17-59); BILIRUBIN,TOTAL 1.6 mg/dL (0.2-1.3); BLOOD UREA NITROGEN 36 mg/dL (7-20); CALCIUM 9.3 mg/dL (8.4-10.2); CARBON DIOXIDE 37 mmol/L (22-30); CHLORIDE 95 mmol/L (98-107); CREATININE RESULT 1.52 mg/dL (0.52-1.25); GLUCOSE 97 mg/dL (75-110); POTASSIUM 4.6 mmol/L (3.6-5.0); SODIUM 139.8 mmol/L (137-145)
[2016-08-10] MEDS: MAGNESIUM OXIDE 400 MG TABLET PO SCH ×2 (09:55→22:06)
[2016-08-10] MEDS: FUROSEMIDE 40 MG TABLET PO SCH ×2 (09:55→17:27)
[2016-08-10] MEDS: METOPROLOL SUCCINATE 25 MG TAB.SR.24H PO SCH ×2 (09:56→22:06)
[2016-08-10] MEDS: APIXABAN 5 MG TABLET PO SCH ×2 (09:56→22:06)
[2016-08-10] MEDS: DIPHENHYDRAMINE HCL 25 MG CAPSULE PO PRN (10:21)
[2016-08-10] MEDS: GUAIFENESIN/D-METHORPHAN (200-20 MG) SYRUP 10 ML PO PRN (10:21)
[2016-08-10] MEDS: SIMVASTATIN 10 MG TABLET PO SCH (17:27)
--- NOTE | 2016-08-10 19:28 | PDOC DISCHARGE SUMMARY ---
General - Admit/Disc Date/PCP Admission Date/Primary Care Provider: 07/28/16 15:12 ZOYA LEONE, Discharge Date: 08/10/16 - Discharge Diagnosis (1) Anasarca Is this a current diagnosis for this admission?: Yes (2) Morbid obesity Is this a current diagnosis for this admission?: Yes (3) Nephrotic syndrome Is this a current diagnosis for this admission?: Yes (4) Chronic diastolic heart failure Is this a current diagnosis for this admission?: Yes (5) Paroxysmal atrial fibrillation Is this a current diagnosis for this admission?: Yes - Additional Information Discharge Activity: Activity As Tolerated, Balance Activity w/Rest, Weigh Daily Home Medications: Apixaban [Eliquis 5 mg Tablet] 5 mg PO BID 07/28/16 Furosemide [Lasix 40 mg Tablet] 40 mg PO TID 07/28/16 Magnesium Oxide [Mag-Ox 400 mg Tablet] 400 mg PO BID 07/28/16 Metoprolol Succinate [Toprol Xl 25 mg Tab.sr] 25 mg PO Q12 07/28/16 Simvastatin [Zocor 20 mg Tablet] 20 mg PO QPM 07/28/16 Potassium Gluconate [Potassium] 99 mg PO BIDP PRN #60 tablet 08/10/16 History of Present Illness History of Present Illness: ELEONORA SHEFFIELD is a 55 year old male with morbid obesity, chronic diastolic heart failure, nephrotic syndrome. He came to the emergency room because of shortness of breath and tremendous anasarca. He was recently admitted in this hospital on 06/11/2016 when he presented in a similar fashion shortness of breath, he was treated with furosemide infusion. Patient is extremely obese with body mass index 56.8. He has tremendous large abdomen. In the emergency room attempt was made to insert a Morales catheter, but it was not succesful. Hospital Course Hospital Course: Patient presented with anasarca due to combination of nephrotic syndrome, morbid obesity and chronic diastolic heart failure. He was treated with Lasix infusion and he was able to get to his dry weight. Physical Exam Vital Signs: Temp Pulse Resp BP Pulse Ox 98.7 F 90 16 115/77 93 08/10/16 16:24 08/10/16 16:24 08/10/16 16:24 08/10/16 16:24 08/10/16 16:24 Intake & Output 08/09/16 08/10/16 08/11/16 06:59 06:59 06:59 Intake Total 1315 1277 890 Balance 1315 1277 890 Weight 175 kg 177.3 kg General appearance: PRESENT: no acute distress Eye exam: PRESENT: PERRLA Respiratory exam: PRESENT: clear to auscultation dell Cardiovascular exam: PRESENT: +S1, +S2 GI/Abdominal exam: PRESENT: soft Neurological exam: PRESENT: alert Results Laboratory Results: 08/10/16 06:38 08/10/16 06:38 Sodium 139.8 Potassium 4.6 Chloride 95 L Carbon Dioxide 37 H Anion Gap 8 BUN 36 H Creatinine 1.52 H Est GFR ( Amer) 58 L Est GFR (Non-Af Amer) 48 L Glucose 97 Calcium 9.3 Total Bilirubin 1.6 H AST 22 ALT 26 Alkaline Phosphatase 71 Total Protein 7.0 Albumin 3.1 L Impressions: Chest X-Ray 07/28/16 09:10 IMPRESSION: Right lower lobe aspiration or pneumonia. Possible peritracheal mass. Pelvis X-Ray 07/28/16 09:39 IMPRESSION: No acute findings in the pelvis. Venous Doppler Study 07/28/16 09:39 IMPRESSION: LIMITED STUDY. NO EVIDENCE DVT OR SVT IN THE LEFT LEG.
[2016-08-11 06:05] LABS: ALANINE AMINOTRANSFERASE 23 U/L (21-72); ALBUMIN 3.2 g/dL (3.5-5.0); ALKALINE PHOSPHATASE 66 U/L (38-126); ANION GAP 10 (5-19); ASPARTATE AMINO TRANSFERASE 21 U/L (17-59); BILIRUBIN,TOTAL 1.5 mg/dL (0.2-1.3); BLOOD UREA NITROGEN 36 mg/dL (7-20); CARBON DIOXIDE 34 mmol/L (22-30); CHLORIDE 97 mmol/L (98-107); CREATININE RESULT 1.32 mg/dL (0.52-1.25); GLUCOSE 96 mg/dL (75-110); POTASSIUM 4.4 mmol/L (3.6-5.0); SODIUM 140.7 mmol/L (137-145); TOTAL PROTEIN 6.7 g/dL (6.3-8.2)
[2016-08-11] MEDS: MAGNESIUM OXIDE 400 MG TABLET PO SCH (10:21)
[2016-08-11] MEDS: FUROSEMIDE 40 MG TABLET PO SCH (10:21)
[2016-08-11] MEDS: METOPROLOL SUCCINATE 25 MG TAB.SR.24H PO SCH (10:22)
[2016-08-11] MEDS: APIXABAN 5 MG TABLET PO SCH (10:22)
[2016-08-11 13:59] VITALS: BP 118/66
== END 2016-08-11 14:30 | disposition home or self-care (01) | DRG 699 ==
LOC: ER 08:54 → EH 12:51 → UNDOADMIN 12:51 → EH 14:24 → 4N 14:24
PROVIDERS: ADMIT Internal Medicine; ATTEND Internal Medicine
PROC: 3E0F73Z Introduction of Anti-inflammatory into Respiratory Tract, Via Natural or Artificial Opening (ICD-10-PCS; principal; 2016-07-31)
DX: N04.9 Nephrotic syndrome with unspecified morphologic changes (principal); I16.1 Hypertensive emergency; I50.32 Chronic diastolic (congestive) heart failure; Z68.43 Body mass index [BMI] 50.0-59.9, adult; N50.89 Other specified disorders of the male genital organs; I10 Essential (primary) hypertension; I48.0 Paroxysmal atrial fibrillation; E66.01 Morbid (severe) obesity due to excess calories; R60.1 Generalized edema; I25.10 Atherosclerotic heart disease of native coronary artery without angina pectoris; E78.5 Hyperlipidemia, unspecified; I73.9 Peripheral vascular disease, unspecified; J44.9 Chronic obstructive pulmonary disease, unspecified; G47.30 Sleep apnea, unspecified; M19.90 Unspecified osteoarthritis, unspecified site; F17.210 Nicotine dependence, cigarettes, uncomplicated; F32.9 Major depressive disorder, single episode, unspecified; Z79.899 Other long term (current) drug therapy; Z86.711 Personal history of pulmonary embolism
CPT/HCPCS: 36415; 71010; 72170; 80048; 80053; 82550; 82553; 83880; 84484; 85025; 93005; 93010; 93971; 96374; 99285; J1940; J3480; J3490; J7050

== ENCOUNTER 2016-10-15 12:00 | Inpatient (IN) | payer OTHER, MEDICARE ==
--- NOTE | 2016-10-15 12:59 | ER Document Report ---
ED Respiratory Problem - General Chief Complaint: Edema Stated Complaint: TESTICULAR SWELLING Mode of Arrival: Medic Information source: Patient TRAVEL OUTSIDE OF THE [place] IN LAST 30 DAYS: No - HPI Patient complains to provider of: CHF Notes: Patient arrives with complaints of swelling. The patient has a history of congestive heart failure, he is currently taking 80 mg of Lasix twice a day. This was recently increased by his physician due to increased weight gain and swelling. Patient is reporting increased dyspnea specifically when he is lying flat or exerting himself. He denies any chest pain. He denies fever. He denies any abdominal pain. He does report swelling to his abdomen and significant swelling to his scrotum. Was of mild pain to the scrotum. States that he's had this in the past when he's had congestive heart failure. He denies fevers, nausea, vomiting, diarrhea. Denies any numbness tingling or weakness. He has no other complaints at this moment. - Related Data Allergies/Adverse Reactions: No Known Allergies Allergy (Verified 07/28/16 09:39) Past Medical History - Social History Smoking Status: Current Every Day Smoker Chew tobacco use (# tins/day): No Frequency of alcohol use: None Drug Abuse: None Family History: Reviewed & Not Pertinent - Past Medical History Cardiac Medical History: Reports: Hx Atrial Fibrillation, Hx Congestive Heart Failure, Hx Coronary Artery Disease, Hx Hypercholesterolemia, Hx Hypertension, Hx Peripheral Vascular Disease, Hx Pulmonary Embolism Pulmonary Medical History: Reports: Hx COPD, Hx Sleep Apnea Renal/ Medical History: Reports: Hx Renal Insufficiency. Denies: Hx Peritoneal Dialysis GI Medical History: Reports: Hx Gastritis, Hx Ulcerative Colitis Musculoskeltal Medical History: Reports Hx Arthritis Psychiatric Medical History: Reports: Hx Depression Past Surgical History: Reports: Hx Tonsillectomy, Other - Tooth extraction - Immunizations Hx Diphtheria, Pertussis, Tetanus Vaccination: No Review of Systems - Review of Systems -: Yes All other systems reviewed and negative Physical Exam - Vital signs Vitals: Temp Pulse Resp BP Pulse Ox 97.4 F 71 16 130/79 H 97 10/15/16 12:10 10/15/16 12:10 10/15/16 12:10 10/15/16 12:10 10/15/16 12:10 - General General appearance: Appears well, Alert - HEENT Head: Normocephalic, Atraumatic Eyes: Normal Pupils: PERRL Mucous membranes: Normal Pharynx: Normal Neck: Normal - Respiratory Respiratory status: No respiratory distress Breath sounds: Rales - Lower lobes bilaterally - Cardiovascular Rhythm: Regular Heart sounds: Normal auscultation Murmur: No Normal capillary refill: Yes - Abdominal Inspection: Normal Distension: No distension Bowel sounds: Normal Tenderness: Nontender Organomegaly: No organomegaly Notes: Patient is noted to have edema to the lower abdomen. - Genitourinary Notes: Significant edema to the scrotum. No erythema or crepitus. No significant tenderness. Unable to visualize the penis secondary to edema. - Back Back: Normal, Nontender - Extremities General upper extremity: Normal inspection, Nontender, Normal color, Normal ROM , Normal temperature General lower extremity: Normal inspection, Nontender, Edema - To the bilateral lower extremities. He is noted to have a bulky dressing to the right lower extremity. Normal pulses distally., Normal color, Normal ROM, Normal temperature, Normal weight bearing. No: Cecil's sign - Neurological Neuro grossly intact: Yes Cognition: Normal Orientation: AAOx4 Luc Coma Scale Eye Opening: Spontaneous [place] Coma Scale Verbal: Oriented Luc Coma Scale Motor: Obeys Commands [place] Coma Scale Total: 15 Speech: Normal Motor strength normal: LUE, RUE, LLE, RLE Sensory: Normal - Psychological Associated symptoms: Normal affect, Normal mood - Skin Skin Temperature: Warm Skin Moisture: Dry Skin Color: Normal Course - Re-evaluation Re-evalutation: 10/15/16 16:19 Patient remains nontoxic. Patient has what appears to be worsening CHF with a BNP of 14,500. Chest x-ray shows pulmonary vascular congestion. Patient complains of increasing shortness of breath and was noted to have hypoxia here in the ED. The patient will need admission for CHF exacerbation. I have paged Dr. Summers his primary care physician, I am awaiting return call at this time.` 10/15/16 16:[address] Summers. Report was given to him regarding this patient. He has accepted the patient as an admission and the patient will be admitted to the [facility]. - Vital Signs Vital signs: Temp Pulse Resp BP Pulse Ox 97.4 F 71 20 119/73 97 10/15/16 12:10 10/15/16 12:10 10/15/16 16:13 10/15/16 16:13 10/15/16 16:13 - Laboratory Result Diagrams: 10/15/16 15:03 10/15/16 15:03 Laboratory results interpreted by me: 10/15/16 10/15/16 10/15/16 15:03 15:03 15:03 Hgb 12.7 L RDW 17.2 H Eosinophils % 8.6 H Carbon Dioxide 21 L BUN 25 H Creatinine 1.54 H Est GFR ( Amer) 57 L Est GFR (Non-Af Amer) 47 L Glucose 72 L Total Bilirubin 2.2 H Direct Bilirubin 1.2 H NT-Pro-B Natriuret Pep 20089 H - EKG Interpretation by Me Rate: Normal Rhythm: A.Fib [place]/QRS: RBBB When compared to previous EKG there are: No significant change - 07/28/16 Discharge - Discharge Clinical Impression: Hypoxia CHF (congestive heart failure) Qualifiers: Congestive heart failure type: combined Congestive heart failure chronicity: acute on chronic Qualified Code(s): I50.43 - Acute on chronic combined systolic (congestive) and diastolic (congestive) heart failure Condition: Serious Disposition: ADMITTED INPATIENT Admitting Provider: [facility] Admitted: [facility]
[2016-10-15 15:24] LABS: ABSOLUTE EOSINOPHILS # (AUTO) 0.4 10^3/uL (0.0-0.6); ABSOLUTE LYMPHOCYTES (AUTO) 0.9 10^3/uL (0.5-4.7); ABSOLUTE MONOCYTES (AUTO) 0.5 10^3/uL (0.1-1.4); ABSOLUTE NEUT (AUTO) 2.4 10^3/uL (1.7-8.2); BASOPHILS % (AUTO) 1.2 % (0-2); EOSINOPHILS % (AUTO) 8.6 % (0-6); HEMATOCRIT 39.7 % (37.9-51.0); HEMOGLOBIN 12.7 g/dL (13.5-17.0); HGB HCT DIFFERENCE -1.6; LYMPHOCYTES % (AUTO) 20.8 % (13-45); MEAN CORPUSCULAR HEMOGLOBIN 27.2 pg (27.0-33.4); MEAN CORPUSCULAR VOLUME 85 fl (80-97); MONOCYTES % (AUTO) 12.7 % (3-13); RED BLOOD COUNT 4.68 10^6/uL (4.35-5.55); RED CELL DISTRIBUTION WIDTH 17.2 % (11.5-14.0); SEGMENTED NEUTROPHILS % (AUTO) 56.7 % (42-78); WHITE BLOOD COUNT 4.2 10^3/uL (4.0-10.5)
--- NOTE | 2016-10-15 15:35 | EKG REPORT ---
SEVERITY:- ABNORMAL ECG - ATRIAL FIBRILLATION INCOMPLETE RIGHT BUNDLE BRANCH BLOCK INFERIOR INFARCT, OLD BORDERLINE R WAVE PROGRESSION, ANTERIOR LEADS LATERAL LEADS ARE ALSO INVOLVED : Confirmed by: Karen Worthy MD 15-Oct-2016 15:34:33
[2016-10-15] MEDS ORDERED: FUROSEMIDE INJ/PF 40 MG/4 ML SDV IV ONE (15:42)
[2016-10-15 15:44] LABS: ALANINE AMINOTRANSFERASE 24 U/L (21-72); ALBUMIN 3.5 g/dL (3.5-5.0); ALKALINE PHOSPHATASE 60 U/L (38-126); ANION GAP 16 (5-19); ASPARTATE AMINO TRANSFERASE 27 U/L (17-59); BILIRUBIN,DIRECT 1.2 mg/dL (0.0-0.4); BILIRUBIN,TOTAL 2.2 mg/dL (0.2-1.3); BLOOD UREA NITROGEN 25 mg/dL (7-20); CALCIUM 9.5 mg/dL (8.4-10.2); CARBON DIOXIDE 21 mmol/L (22-30); CHLORIDE 107 mmol/L (98-107); CREATINE KINASE 71 U/L (55-170); CREATININE RESULT 1.54 mg/dL (0.52-1.25); GLUCOSE 72 mg/dL (75-110); POTASSIUM 4.6 mmol/L (3.6-5.0); TOTAL PROTEIN 7.4 g/dL (6.3-8.2)
[2016-10-15 16:06] LABS: CREATINE KINASE MB 0.45 ng/mL (<4.55)
[2016-10-15 16:07] LABS: TROPONIN I < 0.012 ng/mL
[2016-10-15] MEDS: NORMAL SALINE 250 ML with FUROSEMIDE 250 MG IV PRN ×2 (23:57)
[2016-10-16 05:09] LABS: HEMATOCRIT 35.7 % (37.9-51.0); HEMOGLOBIN 11.7 g/dL (13.5-17.0); HGB HCT DIFFERENCE -0.6; MEAN CORPUSCULAR HEMOGLOBIN 27.2 pg (27.0-33.4); MEAN CORPUSCULAR HGB CONC 32.7 g/dL (32.0-36.0); MEAN CORPUSCULAR VOLUME 83 fl (80-97); RED BLOOD COUNT 4.29 10^6/uL (4.35-5.55); RED CELL DISTRIBUTION WIDTH 17.1 % (11.5-14.0); WHITE BLOOD COUNT 3.9 10^3/uL (4.0-10.5)
[2016-10-16 05:28] LABS: BLOOD UREA NITROGEN 23 mg/dL (7-20); CALCIUM 9.5 mg/dL (8.4-10.2); CARBON DIOXIDE 25 mmol/L (22-30); CHLORIDE 107 mmol/L (98-107); CREATININE RESULT 1.52 mg/dL (0.52-1.25); GLUCOSE 104 mg/dL (75-110); POTASSIUM 4.1 mmol/L (3.6-5.0); SODIUM 142.5 mmol/L (137-145)
[2016-10-16 05:29] LABS: ANION GAP 11 (5-19)
[2016-10-16] MEDS: ENOXAPARIN SODIUM INJ 40 MG/0.4 ML DISP.SYRIN SUBCUT SCH (08:42)
--- NOTE | 2016-10-16 19:48 | PDOC H&P ---
History of Present Illness Admission Date/PCP: 10/16/16 09:33 ZOYA LEONE MD History of Present Illness: ELEONORA SHEFFIELD is a 56 year old male, he has multiple comorbid conditions including chronic diastolic heart failure, nephrotic range proteinuria/ nephrotic syndrome, severe morbid obesity, chronic kidney disease stage III, sedentary lifestyle. He came to the emergency room because of shortness of breath and tremendous anasarca, the last time she was admitted in this hospital was on July 30, 2016 for similar presentation before that he was admitted on June 11, 2016 for similar presentation and on both occasions he was treated with Lasix infusion. He has massive anasarca with tremendous scrotal swelling, there is severe chronic venous hypertension of both lower extremities, there is tremendous skin changes of both lower extremities, severe lichenification of the legs. This is going to be a pattern of readmission for the same problem, he is not ambulatory and he does not follow up in the office, he does not leave his residence. Last year I had a conference with his mother and the patient for him to consider bariatric surgery because I did not see a way out of his health problems without significant weight loss. He has nephrotic syndrome which is also weight related. I also discussed with him and his brother today about prognosis and my original recommendation for him to undergo bariatric surgery but patient is not open to the idea, it seemed that he has given up, he feels comfortable with his present situation revolving between hospital and is residence. Past Medical History Cardiac Medical History: Reports: Atrial Fibrillation, Congestive Heart Failure , Coronary Artery Disease, Hyperlipidema, Hypertension, Peripheral Vascular Disease, Pulmonary Embolism Pulmonary Medical History: Reports: Chronic Obstructive Pulmonary Disease (COPD) , Sleep Apnea GI Medical History: Reports: Ulcerative Colitis Musculoskeltal Medical History: Reports: Arthritis Psychiatric Medical History: Reports: Depression Past Surgical History Past Surgical History: Reports: Tonsillectomy, Other - Tooth extraction Social History Smoking Status: Current Some Day Smoker Cigarettes Packs Per Day: 0.2 Frequency of Alcohol Use: None Hx Recreational Drug Use: Yes Drugs: None Hx Prescription Drug Abuse: No - Advance Directive Resuscitation Status: Full Code Family History Family History: Reviewed & Not Pertinent Parental Family History Reviewed: Yes Children Family History Reviewed: Yes Sibling(s) Family History Reviewed.: Yes Medication/Allergy Home Medications: Furosemide [Lasix] 40 mg PO QID 10/15/16 Magnesium Oxide [Mag-Ox 400 mg Tablet] 400 mg PO BID 10/15/16 Metoprolol Succinate [Toprol Xl 25 mg Tab.sr] 25 mg PO Q12 10/15/16 Multivitamin [Tab-A-Castillo (Multiple Vitamin) Tablet] 1 tab PO DAILY 10/15/16 Simvastatin [Zocor 20 mg Tablet] 20 mg PO QPM 10/15/16 Allergies/Adverse Reactions: No Known Allergies Allergy (Verified 07/28/16 09:39) Review of Systems Constitutional: PRESENT: weight gain Eyes: ABSENT: visual disturbances Ears: ABSENT: hearing changes Cardiovascular: PRESENT: dyspnea on exertion, edema, orthropnea Respiratory: PRESENT: dyspnea Gastrointestinal: ABSENT: as per HPI, abdominal pain, bloating, coffee ground emesis, constipation, diarrhea, dysphagia, heartburn, hematemesis, hematochezia , melena, nausea, vomiting, other Genitourinary: ABSENT: dysuria, hematuria Musculoskeletal: ABSENT: joint swelling Integumentary: ABSENT: rash, wounds Neurological: ABSENT: abnormal gait, abnormal speech, confusion, dizziness, focal weakness, syncope Psychiatric: ABSENT: anxiety, depression, homidical ideation, suicidal ideation Endocrine: ABSENT: cold intolerance, heat intolerance, menstrual abnormalities, polydipsia, polyuria Hematologic/Lymphatic: ABSENT: easy bleeding, easy bruising, lymphadenopathy Physical Exam Vital Signs: Temp Pulse Resp BP Pulse Ox 98.0 F 113 H 16 119/70 92 10/16/16 16:04 10/16/16 16:04 10/16/16 16:04 10/16/16 16:04 10/16/16 17:44 Intake & Output 10/15/16 10/16/16 10/17/16 06:59 06:59 06:59 Intake Total 479 Balance 479 Weight 193.5 kg General appearance: PRESENT: morbidly obese, severe distress Head exam: PRESENT: atraumatic, normocephalic Eye exam: PRESENT: PERRLA Mouth exam: PRESENT: moist, tongue midline Neck exam: PRESENT: full ROM Respiratory exam: PRESENT: crackles Cardiovascular exam: PRESENT: RRR, +S1, +S2 Pulses: PRESENT: normal dorsalis pedis pul, +2 pedal pulses bilateral GI/Abdominal exam: PRESENT: distended Rectal exam: PRESENT: deferred Gentrourinary exam: PRESENT: scrotal swelling Extremities exam: PRESENT: pedal edema Neurological exam: PRESENT: alert, CN II-XII grossly intact Psychiatric exam: PRESENT: appropriate affect, normal mood Skin exam: PRESENT: dry, intact, warm Results Impressions: Chest X-Ray 10/15/16 12:53 IMPRESSION: No significant interval change. Cardiomegaly with pulmonary vascular congestion. Other findings as noted above Assessment & Plan - Diagnosis (1) Acute diastolic heart failure Is this a current diagnosis for this admission?: YesPlan: Patient is admitted to the hospital, he is started on Lasix infusion (2) Nephrotic syndrome Is this a current diagnosis for this admission?: Yes (3) Anasarca Is this a current diagnosis for this admission?: Yes (4) Chronic cutaneous venous stasis ulcer Is this a current diagnosis for this admission?: Yes (5) Chronic diastolic heart failure Is this a current diagnosis for this admission?: Yes (6) Hypoalbuminemia Is this a current diagnosis for this admission?: Yes
--- NOTE | 2016-10-16 19:52 | PDOC PROGRESS REPORT ---
Subjective Progress Note for:: 10/16/16 Subjective:: Patient was admitted yesterday, he was seen today by the bedside Physical Exam Vital Signs: Temp Pulse Resp BP Pulse Ox 98.0 F 113 H 16 119/70 92 10/16/16 16:04 10/16/16 16:04 10/16/16 16:04 10/16/16 16:04 10/16/16 17:44 Intake & Output 10/15/16 10/16/16 10/17/16 06:59 06:59 06:59 Intake Total 479 Balance 479 Weight 193.5 kg Head exam: PRESENT: atraumatic, normocephalic Eye exam: PRESENT: conjunctiva pink, EOMI, PERRLA. ABSENT: scleral icterus Ear exam: PRESENT: normal external ear exam Mouth exam: PRESENT: moist, tongue midline Neck exam: PRESENT: full ROM Respiratory exam: PRESENT: crackles Cardiovascular exam: PRESENT: RRR, +S1, +S2 Pulses: PRESENT: normal dorsalis pedis pul, +2 pedal pulses bilateral Vascular exam: PRESENT: normal capillary refill GI/Abdominal exam: PRESENT: distended, normal bowel sounds, soft, other Rectal exam: PRESENT: deferred Neurological exam: PRESENT: alert Skin exam: PRESENT: dry, intact, warm. ABSENT: cyanosis, rash Results Impressions: Chest X-Ray 10/15/16 12:53 IMPRESSION: No significant interval change. Cardiomegaly with pulmonary vascular congestion. Other findings as noted above Assessment & Plan - Diagnosis (1) Acute diastolic heart failure Is this a current diagnosis for this admission?: Yes (2) Nephrotic syndrome Is this a current diagnosis for this admission?: Yes (3) Anasarca Is this a current diagnosis for this admission?: Yes (4) Chronic cutaneous venous stasis ulcer Is this a current diagnosis for this admission?: Yes (5) Chronic diastolic heart failure Is this a current diagnosis for this admission?: Yes (6) Hypoalbuminemia Is this a current diagnosis for this admission?: Yes - Plan Summary Plan Summary: He was admitted yesterday he will continue furosemide infusion prognosis remains poor, at one point we need to address CODE STATUS
[2016-10-16] MEDS: METOPROLOL TARTRATE 25 MG TABLET PO SCH (23:19)
[2016-10-16] MEDS: NORMAL SALINE 250 ML with FUROSEMIDE 250 MG IV PRN ×2 (23:20)
[2016-10-16] MEDS: PHARMACY COMMUNICATION ORDER MC SCH (23:29)
[2016-10-17 05:46] LABS: HEMATOCRIT 36.7 % (37.9-51.0); HEMOGLOBIN 11.8 g/dL (13.5-17.0); HGB HCT DIFFERENCE -1.3; MEAN CORPUSCULAR HEMOGLOBIN 27.2 pg (27.0-33.4); MEAN CORPUSCULAR HGB CONC 32.3 g/dL (32.0-36.0); MEAN CORPUSCULAR VOLUME 84 fl (80-97); RED BLOOD COUNT 4.35 10^6/uL (4.35-5.55); RED CELL DISTRIBUTION WIDTH 17.2 % (11.5-14.0); WHITE BLOOD COUNT 3.8 10^3/uL (4.0-10.5)
[2016-10-17 06:18] LABS: ANION GAP 14 (5-19); BLOOD UREA NITROGEN 20 mg/dL (7-20); CALCIUM 9.1 mg/dL (8.4-10.2); CARBON DIOXIDE 26 mmol/L (22-30); CHLORIDE 106 mmol/L (98-107); CREATININE RESULT 1.44 mg/dL (0.52-1.25); GLUCOSE 106 mg/dL (75-110); POTASSIUM 3.6 mmol/L (3.6-5.0); SODIUM 145.5 mmol/L (137-145)
[2016-10-17] MEDS: ENOXAPARIN SODIUM INJ 40 MG/0.4 ML DISP.SYRIN SUBCUT SCH (08:17)
[2016-10-17] MEDS: METOPROLOL TARTRATE 25 MG TABLET PO SCH ×2 (10:13→22:16)
[2016-10-17] MEDS: POTASSIUM CHLORIDE 10 MEQ TABLET.SA PO SCH (10:13)
--- NOTE | 2016-10-17 13:51 | PDOC PROGRESS REPORT ---
Subjective Progress Note for:: 10/17/16 Subjective:: Patient very lucid today. He reported been on Simvastatin, Metoprolol and Potassium supplementation prior to his admission but not included on his medication list upon presentation. He denied any chest pain or difficulty with breathing. Currently on IV furosemide therapy. Overall swelling gradually improving. No fever or chills. He denied any nausea. vomiting or abdominal pain. Physical Exam Vital Signs: Temp Pulse Resp BP Pulse Ox 97.5 F 79 22 H 120/73 95 10/17/16 11:43 10/17/16 11:43 10/17/16 11:43 10/17/16 11:43 10/17/16 11:43 Intake & Output 10/16/16 10/17/16 10/18/16 06:59 06:59 06:59 Intake Total 962 340 Balance 962 340 Weight 179.9 kg General appearance: PRESENT: no acute distress, morbidly obese, well-developed, well-nourished Head exam: PRESENT: atraumatic, normocephalic Neck exam: PRESENT: full ROM. ABSENT: carotid bruit, JVD, lymphadenopathy, thyromegaly Respiratory exam: PRESENT: clear to auscultation dell, decreased breath sounds. ABSENT: accessory muscle use, chest wall tenderness, crackles, prolonged expiratory phas, rales, retraction, rhonchi, stridor, symmetrical, tachypnea, unlabored, wheezes, other Cardiovascular exam: PRESENT: RRR. ABSENT: diastolic murmur, rubs, systolic murmur GI/Abdominal exam: PRESENT: normal bowel sounds, soft. ABSENT: distended, guarding, mass, organolmegaly, rebound, tenderness Gentrourinary exam: PRESENT: scrotal swelling Extremities exam: PRESENT: pedal edema Musculoskeletal exam: PRESENT: deformity - related to joint involvement with arthritis Neurological exam: PRESENT: alert, awake, oriented to person, oriented to place , oriented to time, oriented to situation, CN II-XII grossly intact. ABSENT: motor sensory deficit Psychiatric exam: PRESENT: appropriate affect, normal mood. ABSENT: homicidal ideation, suicidal ideation Skin exam: PRESENT: dry, intact, warm, other - chronic ulcer involving right foot. ABSENT: cyanosis, rash Results Laboratory Results: 10/17/16 05:06 10/17/16 05:06 10/17/16 10/17/16 05:06 05:06 WBC 3.8 L RBC 4.35 Hgb 11.8 L Hct 36.7 L MCV 84 MCH 27.2 MCHC 32.3 RDW 17.2 H Plt Count 181 Sodium 145.5 H Potassium 3.6 Chloride 106 Carbon Dioxide 26 Anion Gap 14 BUN 20 Creatinine 1.44 H Est GFR ( Amer) > 60 Est GFR (Non-Af Amer) 51 L Glucose 106 Calcium 9.1 Impressions: Chest X-Ray 10/15/16 12:53 IMPRESSION: No significant interval change. Cardiomegaly with pulmonary vascular congestion. Other findings as noted above Assessment & Plan - Diagnosis (1) Acute on chronic combined systolic (congestive) and diastolic (congestive) heart failure Is this a current diagnosis for this admission?: YesPlan: See covering attending physician. (2) Anasarca Is this a current diagnosis for this admission?: YesPlan: See covering attending physician. (3) Chronic atrial fibrillation Is this a current diagnosis for this admission?: YesPlan: See covering attending physician. (4) Morbid obesity Qualifiers: Obesity type: due to excess calories Qualified Code(s): E66.01 - Morbid (severe) obesity due to excess calories Is this a current diagnosis for this admission?: YesPlan: See covering attending physician. - Time Time Spent with patient: 25-34 minutes Medications reviewed and adjusted accordingly: Yes Anticipated discharge: SNF Within: Other - Inpatient Certification Medical Necessity: Need Close Monitoring Due to Risk of Patient Decompensation, Need For Continuous Telemetry Monitoring, Risk of Complication if Not Cared For in Hospital Post Hospital Care: D/C or Transfer Summary - Plan Summary Plan Summary: See covering attending physician.
[2016-10-17] MEDS ORDERED: POTASSIUM CHLORIDE 10 MEQ TABLET.SA PO ONE (15:30)
[2016-10-17] MEDS: NORMAL SALINE 250 ML with FUROSEMIDE 250 MG IV PRN ×2 (18:49)
[2016-10-18] MEDS: PHARMACY COMMUNICATION ORDER MC SCH ×2 (02:26→18:00)
[2016-10-18 06:23] LABS: MEAN CORPUSCULAR HEMOGLOBIN 27.2 pg (27.0-33.4); MEAN CORPUSCULAR HGB CONC 32.4 g/dL (32.0-36.0); MEAN CORPUSCULAR VOLUME 84 fl (80-97); RED BLOOD COUNT 4.41 10^6/uL (4.35-5.55); RED CELL DISTRIBUTION WIDTH 17.1 % (11.5-14.0); WHITE BLOOD COUNT 4.5 10^3/uL (4.0-10.5)
[2016-10-18 06:46] LABS: ANION GAP 13 (5-19); BLOOD UREA NITROGEN 20 mg/dL (7-20); CALCIUM 9.4 mg/dL (8.4-10.2); CARBON DIOXIDE 31 mmol/L (22-30); CHLORIDE 103 mmol/L (98-107); CREATININE RESULT 1.39 mg/dL (0.52-1.25); GLUCOSE 99 mg/dL (75-110); POTASSIUM 3.7 mmol/L (3.6-5.0); SODIUM 146.9 mmol/L (137-145)
[2016-10-18] MEDS: ENOXAPARIN SODIUM INJ 40 MG/0.4 ML DISP.SYRIN SUBCUT SCH (07:48)
[2016-10-18] MEDS: METOPROLOL TARTRATE 25 MG TABLET PO SCH ×2 (09:35→23:18)
[2016-10-18] MEDS: POTASSIUM CHLORIDE 10 MEQ TABLET.SA PO SCH (09:35)
--- NOTE | 2016-10-18 10:15 | PDOC PROGRESS REPORT ---
Subjective Progress Note for:: 10/18/16 Subjective:: He denied any chest pain or difficulty with breathing. No fever or chills. He denied any nausea. vomiting or abdominal pain. Currently on IV furosemide therapy. Overall swelling gradually improving. He was moved to telemetry floor since last clinical evaluation with some expressed dissatisfaction. Physical Exam Vital Signs: Temp Pulse Resp BP Pulse Ox 98.0 F 60 16 126/84 H 93 10/18/16 10:00 10/18/16 10:00 10/18/16 10:00 10/18/16 10:00 10/18/16 10:00 Intake & Output 10/17/16 10/18/16 10/19/16 06:59 06:59 06:59 Intake Total 962 1084 Balance 962 1084 Weight 179.9 kg 164.7 kg Physical Exam: General appearance: PRESENT: no acute distress, morbidly obese, well-developed, well-nourished Head exam: PRESENT: atraumatic, normocephalic Neck exam: PRESENT: full ROM. ABSENT: carotid bruit, JVD, lymphadenopathy, thyromegaly Respiratory exam: PRESENT: clear to auscultation dell, decreased breath sounds. ABSENT: accessory muscle use, chest wall tenderness, crackles, prolonged expiratory phas, rales, retraction, rhonchi, stridor, symmetrical, tachypnea, unlabored, wheezes, other Cardiovascular exam: PRESENT: RRR. ABSENT: diastolic murmur, rubs, systolic murmur GI/Abdominal exam: PRESENT: normal bowel sounds, soft. ABSENT: distended, guarding, mass, organomegaly, rebound, tenderness Gentrourinary exam: PRESENT: scrotal swelling Extremities exam: PRESENT: pedal edema Musculoskeletal exam: PRESENT: deformity - related to joint involvement with arthritis Neurological exam: PRESENT: alert, awake, oriented to person, oriented to place , oriented to time, oriented to situation, CN II-XII grossly intact. ABSENT: motor sensory deficit Psychiatric exam: PRESENT: appropriate affect, normal mood. ABSENT: homicidal ideation, suicidal ideation Skin exam: PRESENT: dry, intact, warm, other - chronic ulcer involving right foot. ABSENT: cyanosis, rash Results Laboratory Results: 10/18/16 05:42 10/18/16 05:42 10/17/16 10/18/16 10/18/16 05:06 05:42 05:42 WBC 4.5 RBC 4.41 Hgb 12.0 L Hct 37.0 L MCV 84 MCH 27.2 MCHC 32.4 RDW 17.1 H Plt Count 193 Sodium 146.9 H Potassium 3.7 Chloride 103 Carbon Dioxide 31 H Anion Gap 13 BUN 20 Creatinine 1.39 H Est GFR ( Amer) > 60 Est GFR (Non-Af Amer) 53 L Glucose 99 Calcium 9.4 Magnesium 1.9 Impressions: Chest X-Ray 10/15/16 12:53 IMPRESSION: No significant interval change. Cardiomegaly with pulmonary vascular congestion. Other findings as noted above Assessment & Plan - Diagnosis (1) Acute on chronic combined systolic (congestive) and diastolic (congestive) heart failure Is this a current diagnosis for this admission?: YesPlan: See covering attending physician. (2) Anasarca Is this a current diagnosis for this admission?: YesPlan: See covering attending physician. (3) Chronic atrial fibrillation Is this a current diagnosis for this admission?: YesPlan: See covering attending physician. (4) Morbid obesity Qualifiers: Obesity type: due to excess calories Qualified Code(s): E66.01 - Morbid (severe) obesity due to excess calories Is this a current diagnosis for this admission?: YesPlan: See covering attending physician. - Time Time Spent with patient: 25-34 minutes Medications reviewed and adjusted accordingly: Yes Anticipated discharge: Home with Homehealth Within: Other - Inpatient Certification Medical Necessity: Need Close Monitoring Due to Risk of Patient Decompensation, Need For Continuous Telemetry Monitoring, Risk of Complication if Not Cared For in Hospital Post Hospital Care: D/C Online Content Editor Documentation - Plan Summary Plan Summary: See covering attending physician orders.
[2016-10-18] MEDS: NORMAL SALINE 250 ML with FUROSEMIDE 250 MG IV PRN ×4 (17:47→18:17)
[2016-10-19 05:46] LABS: ABSOLUTE EOSINOPHILS # (AUTO) 0.4 10^3/uL (0.0-0.6); ABSOLUTE LYMPHOCYTES (AUTO) 0.7 10^3/uL (0.5-4.7); ABSOLUTE MONOCYTES (AUTO) 0.6 10^3/uL (0.1-1.4); ABSOLUTE NEUT (AUTO) 2.6 10^3/uL (1.7-8.2); BASOPHILS % (AUTO) 0.8 % (0-2); HEMATOCRIT 38.4 % (37.9-51.0); HEMOGLOBIN 12.5 g/dL (13.5-17.0); HGB HCT DIFFERENCE -0.9; LYMPHOCYTES % (AUTO) 16.4 % (13-45); MEAN CORPUSCULAR HEMOGLOBIN 27.2 pg (27.0-33.4); MEAN CORPUSCULAR HGB CONC 32.4 g/dL (32.0-36.0); MEAN CORPUSCULAR VOLUME 84 fl (80-97); MONOCYTES % (AUTO) 13.6 % (3-13); RED BLOOD COUNT 4.57 10^6/uL (4.35-5.55); RED CELL DISTRIBUTION WIDTH 16.7 % (11.5-14.0); SEGMENTED NEUTROPHILS % (AUTO) 60.2 % (42-78); WHITE BLOOD COUNT 4.3 10^3/uL (4.0-10.5)
[2016-10-19 06:01] LABS: ANION GAP 12 (5-19); BLOOD UREA NITROGEN 19 mg/dL (7-20); CALCIUM 9.4 mg/dL (8.4-10.2); CARBON DIOXIDE 32 mmol/L (22-30); CHLORIDE 101 mmol/L (98-107); CREATININE RESULT 1.44 mg/dL (0.52-1.25); GLUCOSE 93 mg/dL (75-110); POTASSIUM 3.9 mmol/L (3.6-5.0); SODIUM 145.1 mmol/L (137-145)
[2016-10-19] MEDS: POTASSIUM CHLORIDE 10 MEQ TABLET.SA PO SCH (09:56)
[2016-10-19] MEDS: METOPROLOL TARTRATE 25 MG TABLET PO SCH (09:56)
[2016-10-19] MEDS: ENOXAPARIN SODIUM INJ 40 MG/0.4 ML DISP.SYRIN SUBCUT SCH (09:57)
[2016-10-19] MEDS: NORMAL SALINE 250 ML with FUROSEMIDE 250 MG IV PRN ×2 (18:04)
[2016-10-19] MEDS ORDERED: LISINOPRIL 5 MG TABLET PO ONE (19:00)
--- NOTE | 2016-10-19 19:35 | PDOC PROGRESS REPORT ---
Subjective Progress Note for:: 10/19/16 Subjective:: He was seen by the bedside, he continues to diurese very well Physical Exam Vital Signs: Temp Pulse Resp BP Pulse Ox 98.2 F 68 18 106/68 98 10/19/16 16:48 10/19/16 16:48 10/19/16 16:48 10/19/16 16:48 10/19/16 16:48 Intake & Output 10/18/16 10/19/16 10/20/16 06:59 06:59 06:59 Intake Total 1084 2774 1021 Balance 1084 2774 1021 Weight 164.7 kg 382.5 kg General appearance: PRESENT: no acute distress Eye exam: PRESENT: PERRLA Respiratory exam: PRESENT: clear to auscultation dell Cardiovascular exam: PRESENT: +S1, +S2 GI/Abdominal exam: PRESENT: soft Extremities exam: PRESENT: other - Lower extremity edema Neurological exam: PRESENT: alert, CN II-XII grossly intact Results Laboratory Results: 10/19/16 04:45 10/19/16 04:45 10/19/16 10/19/16 04:45 04:45 WBC 4.3 RBC 4.57 Hgb 12.5 L Hct 38.4 MCV 84 MCH 27.2 MCHC 32.4 RDW 16.7 H Plt Count 191 Seg Neutrophils % 60.2 Lymphocytes % 16.4 Monocytes % 13.6 H Eosinophils % 9.0 H Basophils % 0.8 Absolute Neutrophils 2.6 Absolute Lymphocytes 0.7 Absolute Monocytes 0.6 Absolute Eosinophils 0.4 Absolute Basophils 0.0 Sodium 145.1 H Potassium 3.9 Chloride 101 Carbon Dioxide 32 H Anion Gap 12 BUN 19 Creatinine 1.44 H Est GFR ( Amer) > 60 Est GFR (Non-Af Amer) 51 L Glucose 93 Calcium 9.4 10/19/16 04:45 NT-Pro-B Natriuret Pep 21692 H Impressions: Chest X-Ray 10/15/16 12:53 IMPRESSION: No significant interval change. Cardiomegaly with pulmonary vascular congestion. Other findings as noted above Assessment & Plan - Diagnosis (1) Acute diastolic heart failure Is this a current diagnosis for this admission?: Yes (2) Nephrotic syndrome Is this a current diagnosis for this admission?: Yes (3) Anasarca Is this a current diagnosis for this admission?: Yes (4) Chronic cutaneous venous stasis ulcer Is this a current diagnosis for this admission?: Yes (5) Chronic diastolic heart failure Is this a current diagnosis for this admission?: Yes (6) Hypoalbuminemia Is this a current diagnosis for this admission?: Yes - Plan Summary Plan Summary: Continue treatment ,2D echo is ordered
[2016-10-19] MEDS: CARVEDILOL 3.125 MG TABLET PO SCH (20:46)
[2016-10-19] MEDS: PHARMACY COMMUNICATION ORDER MC SCH (20:47)
[2016-10-19 20:48] LABS: ALANINE AMINOTRANSFERASE 18 U/L (21-72); ALBUMIN 3.5 g/dL (3.5-5.0); ALKALINE PHOSPHATASE 62 U/L (38-126); ANION GAP 13 (5-19); ASPARTATE AMINO TRANSFERASE 17 U/L (17-59); BILIRUBIN,DIRECT 0.6 mg/dL (0.0-0.4); BILIRUBIN,TOTAL 1.6 mg/dL (0.2-1.3); BLOOD UREA NITROGEN 23 mg/dL (7-20); CALCIUM 9.5 mg/dL (8.4-10.2); CARBON DIOXIDE 33 mmol/L (22-30); CHLORIDE 98 mmol/L (98-107); CREATININE RESULT 1.29 mg/dL (0.52-1.25); GLUCOSE 106 mg/dL (75-110); MAGNESIUM 1.9 mg/dL (1.6-2.3); POTASSIUM 3.9 mmol/L (3.6-5.0); SODIUM 144.3 mmol/L (137-145)
[2016-10-20] MEDS: CARVEDILOL 3.125 MG TABLET PO SCH ×2 (06:44→17:43)
[2016-10-20] MEDS: POTASSIUM CHLORIDE 10 MEQ TABLET.SA PO SCH (10:53)
[2016-10-20] MEDS: LISINOPRIL 5 MG TABLET PO SCH (10:54)
[2016-10-20] MEDS: ENOXAPARIN SODIUM INJ 40 MG/0.4 ML DISP.SYRIN SUBCUT SCH (10:54)
[2016-10-20] MEDS: NORMAL SALINE 250 ML with FUROSEMIDE 250 MG IV PRN ×2 (17:49)
[2016-10-20] MEDS: PHARMACY COMMUNICATION ORDER MC SCH (18:00)
--- NOTE | 2016-10-20 20:26 | PDOC PROGRESS REPORT ---
Subjective Progress Note for:: 10/20/16 Subjective:: 2D echo was done today showed preserved ejection fraction of left ventricle but there is severe diastolic heart failure, the left atrium was severely enlarged Physical Exam Vital Signs: Temp Pulse Resp BP Pulse Ox 98.1 F 66 19 113/68 94 10/20/16 15:30 10/20/16 15:30 10/20/16 15:30 10/20/16 15:30 10/20/16 16:57 Intake & Output 10/19/16 10/20/16 10/21/16 06:59 06:59 06:59 Intake Total 2774 2902 1410 Balance 2774 2902 1410 Weight 382.5 kg 382.5 kg General appearance: PRESENT: no acute distress Eye exam: PRESENT: PERRLA Respiratory exam: PRESENT: clear to auscultation dell Cardiovascular exam: PRESENT: +S1, +S2 GI/Abdominal exam: PRESENT: soft Results Laboratory Results: 10/19/16 04:45 10/19/16 20:00 10/19/16 20:00 Sodium 144.3 Potassium 3.9 Chloride 98 Carbon Dioxide 33 H Anion Gap 13 BUN 23 H Creatinine 1.29 H Est GFR ( Amer) > 60 Est GFR (Non-Af Amer) 58 L Glucose 106 Calcium 9.5 Magnesium 1.9 Total Bilirubin 1.6 H AST 17 ALT 18 L Alkaline Phosphatase 62 Total Protein 7.0 Albumin 3.5 10/19/16 04:45 NT-Pro-B Natriuret Pep 64475 H Impressions: Chest X-Ray 10/15/16 12:53 IMPRESSION: No significant interval change. Cardiomegaly with pulmonary vascular congestion. Other findings as noted above Assessment & Plan - Diagnosis (1) Acute diastolic heart failure Is this a current diagnosis for this admission?: Yes (2) Nephrotic syndrome Is this a current diagnosis for this admission?: Yes (3) Anasarca Is this a current diagnosis for this admission?: Yes (4) Chronic cutaneous venous stasis ulcer Is this a current diagnosis for this admission?: Yes (5) Chronic diastolic heart failure Is this a current diagnosis for this admission?: Yes (6) Hypoalbuminemia Is this a current diagnosis for this admission?: Yes - Plan Summary Plan Summary: We will continue IV furosemide and other medications
[2016-10-20] MEDS: GUAIFENESIN SYRP 200 MG/10 ML UDC PO PRN (21:41)
[2016-10-21] MEDS: GUAIFENESIN SYRP 200 MG/10 ML UDC PO PRN ×2 (03:04→21:46)
[2016-10-21] MEDS: CARVEDILOL 3.125 MG TABLET PO SCH ×2 (05:14→18:45)
[2016-10-21] MEDS: ENOXAPARIN SODIUM INJ 40 MG/0.4 ML DISP.SYRIN SUBCUT SCH (11:47)
[2016-10-21] MEDS: LISINOPRIL 5 MG TABLET PO SCH (11:48)
[2016-10-21] MEDS: POTASSIUM CHLORIDE 10 MEQ TABLET.SA PO SCH (11:48)
--- NOTE | 2016-10-21 14:25 | XCELERA REPORT ---
[address] [address] Transthoracic Echocardiogram Report Name: ELEONORA SHEFFIELD Age: 56 yrs Gender: Male : 1960 Patient Status: Inpatient Patient Location: [id number] Study Date: 10/20/2016 09:20 AM Height: 71 in Weight: 382 lb BSA: 2.8 m2 Procedure: A two-dimensional transthoracic echocardiogram with color flow and Doppler was performed. Study Quality: Technically suboptimal. Poor endocardial visualisation. Poor doppler interogation. Reason For Study: CHF History: CHF. Ordering Physician: ZOYA LEONE Performed By: Nereida Tarango Interpretation Summary Poor endocardial visualisation. Poor doppler interogation. Upper normal LV size probably.No LVH. Probably low normal LVEF of 55%. Probably no defenite wall motion abnormality , but cannot be sure. Doppler measurements suggest normal left ventricular diastolic function The right ventricle is moderate to severely dilated. There is mild right ventricular hypertrophy. The right ventricular systolic function is moderately reduced. The right atrium is moderate to severely dilated. The left atrium is severely dilated. There is no evidence of mitral valve prolapse. There is no mitral valve stenosis. Probably mild MR. There is no aortic valve stenosis There is no LVOT obstruction. No aortic regurgitation is present. There is no tricuspid stenosis. There is servere pulmonary hypertension by echo There is a moderate to severe amount of tricuspid regurgitation RVSP is 76 to 81 mm of Hg , with RA mean of 15 to 20. Small pericardial effusion. There are no echocardiographic or Doppler indications for cardiac tamponade MMode/2D Measurements \T\ Calculations RVDd: 4.7 cm LVIDd: 5.4 cm FS: 42.2 % Ao root diam: 3.5 cm IVSd: 1.0 cm LVIDs: 3.1 cm EDV(Teich): LVPWd: 1.0 cm 142.0 ml Ao root area: 9.4 cm2 ESV(Teich): LA dimension: 6.9 cm 38.7 ml EF(Teich): 72.7 % LA A2Cs: LA A4Cs: LA length: 9.4 cm LA Vol Index (BP): 49.2 cm2 50.9 cm2 82.0 ml/m2 LA Volume: 227.7 ml Doppler Measurements \T\ Calculations MV E max jatinder: MV P1/2t max jatinder: Ao V2 max: LV V1 max P.8 cm/sec 160.4 cm/sec 138.2 cm/sec 6.0 mmHg MV A max jatinder: MV P1/2t: 65.4 msec Ao max PG: LV V1 max: 38.9 cm/sec MVA(P1/2t): 3.4 cm2 7.6 mmHg 122.8 cm/sec MV E/A: 4.1 MV dec slope: LV dP/dt: 718.2 cm/sec2 1136 mmHg/s MV dec time: 0.22 sec PA V2 max: TR max jatinder: 78.0 cm/sec 390.9 cm/sec PA max PG: TR max P.1 mmHg 2.4 mmHg Left Ventricle Upper normal LV size probably.No LVH. Probably low normal LVEF of 55%. Doppler measurements suggest normal left ventricular diastolic function. Flattened septum is consistent with RV pressure overload. Probably no defenite wall motion abnormality , but cannot be sure. There is no thrombus. Right Ventricle The right ventricle is moderate to severely dilated. There is mild right ventricular hypertrophy. The right ventricular systolic function is moderately reduced. Atria The right atrium is moderate to severely dilated. The left atrium is severely dilated. Mitral Valve There is no evidence of mitral valve prolapse. There is no vegetation seen on the mitral valve. There is no mitral valve stenosis. Probably mild MR. Aortic Valve There is no aortic valve stenosis. There is no LVOT obstruction. No aortic regurgitation is present. Tricuspid Valve There is no tricuspid stenosis. There is servere pulmonary hypertension by echo. There is a moderate to severe amount of tricuspid regurgitation. RVSP is 76 to 81 mm of Hg , with RA mean of 15 to 20. Pulmonic Valve The pulmonic valve is not well visualized. Great Vessels The aortic root is not well visualized. The inferior vena cava appeared dilated and decreased < 50% with respiration (RAP 15-20 mmHg). Effusions Small pericardial effusion. There are no echocardiographic or Doppler indications for cardiac tamponade. : ZOYA LEONE > Karen Worthy
--- NOTE | 2016-10-21 17:41 | PDOC PROGRESS REPORT ---
Subjective Progress Note for:: 10/21/16 Subjective:: Patient seen by the bedside, he continues to require furosemide infusion and he is diuresing very well. A 2D echo showed preserved ejection fraction of the left ventricle there is pseudo-normalization of the E/A ratio suggesting grade 2 diastolic heart failure Physical Exam Vital Signs: Temp Pulse Resp BP Pulse Ox 97.8 F 168 H 22 H 110/71 96 10/21/16 15:43 10/21/16 15:43 10/21/16 15:43 10/21/16 15:43 10/21/16 15:43 Intake & Output 10/20/16 10/21/16 10/22/16 06:59 06:59 06:59 Intake Total 2902 2070 450 Balance 2902 2070 450 Weight 382.5 kg General appearance: PRESENT: no acute distress Eye exam: PRESENT: PERRLA Respiratory exam: PRESENT: clear to auscultation dell Cardiovascular exam: PRESENT: +S1, +S2 GI/Abdominal exam: PRESENT: soft Neurological exam: PRESENT: alert Results Laboratory Results: 10/19/16 04:45 10/19/16 20:00 10/19/16 04:45 NT-Pro-B Natriuret Pep 51916 H Impressions: Chest X-Ray 10/15/16 12:53 IMPRESSION: No significant interval change. Cardiomegaly with pulmonary vascular congestion. Other findings as noted above Assessment & Plan - Diagnosis (1) Acute diastolic heart failure Is this a current diagnosis for this admission?: Yes (2) Nephrotic syndrome Is this a current diagnosis for this admission?: Yes (3) Anasarca Is this a current diagnosis for this admission?: Yes (4) Chronic cutaneous venous stasis ulcer Is this a current diagnosis for this admission?: Yes (5) Chronic diastolic heart failure Is this a current diagnosis for this admission?: Yes (6) Hypoalbuminemia Is this a current diagnosis for this admission?: Yes
[2016-10-21] MEDS: NORMAL SALINE 250 ML with FUROSEMIDE 250 MG IV PRN ×2 (18:46)
[2016-10-21] MEDS: PHARMACY COMMUNICATION ORDER MC SCH (19:33)
[2016-10-22] MEDS: CARVEDILOL 3.125 MG TABLET PO SCH ×2 (05:57→17:36)
[2016-10-22] MEDS: LISINOPRIL 5 MG TABLET PO SCH (09:11)
[2016-10-22] MEDS: POTASSIUM CHLORIDE 10 MEQ TABLET.SA PO SCH (09:11)
[2016-10-22] MEDS: ENOXAPARIN SODIUM INJ 40 MG/0.4 ML DISP.SYRIN SUBCUT SCH (09:15)
[2016-10-22] MEDS: NORMAL SALINE 250 ML with FUROSEMIDE 250 MG IV PRN ×2 (17:35)
[2016-10-22] MEDS: PHARMACY COMMUNICATION ORDER MC SCH (17:36)
[2016-10-22 19:06] LABS: ABSOLUTE BASOPHILS # (AUTO) 0.1 10^3/uL (0.0-0.2); ABSOLUTE EOSINOPHILS # (AUTO) 0.4 10^3/uL (0.0-0.6); ABSOLUTE LYMPHOCYTES (AUTO) 0.9 10^3/uL (0.5-4.7); ABSOLUTE MONOCYTES (AUTO) 0.6 10^3/uL (0.1-1.4); ABSOLUTE NEUT (AUTO) 2.8 10^3/uL (1.7-8.2); BASOPHILS % (AUTO) 1.1 % (0-2); EOSINOPHILS % (AUTO) 8.3 % (0-6); HEMATOCRIT 40.6 % (37.9-51.0); HEMOGLOBIN 13.2 g/dL (13.5-17.0); LYMPHOCYTES % (AUTO) 18.4 % (13-45); MEAN CORPUSCULAR HEMOGLOBIN 27.2 pg (27.0-33.4); MEAN CORPUSCULAR HGB CONC 32.5 g/dL (32.0-36.0); MEAN CORPUSCULAR VOLUME 84 fl (80-97); MONOCYTES % (AUTO) 13.2 % (3-13); RED BLOOD COUNT 4.85 10^6/uL (4.35-5.55); RED CELL DISTRIBUTION WIDTH 16.5 % (11.5-14.0); WHITE BLOOD COUNT 4.8 10^3/uL (4.0-10.5)
[2016-10-22 19:10] LABS: ANION GAP 12 (5-19); BLOOD UREA NITROGEN 34 mg/dL (7-20); CALCIUM 9.4 mg/dL (8.4-10.2); CARBON DIOXIDE 34 mmol/L (22-30); CHLORIDE 98 mmol/L (98-107); CREATININE RESULT 1.41 mg/dL (0.52-1.25); GLUCOSE 133 mg/dL (75-110); SODIUM 143.9 mmol/L (137-145)
--- NOTE | 2016-10-22 19:43 | PDOC DISCHARGE SUMMARY ---
General - Admit/Disc Date/PCP Admission Date/Primary Care Provider: 10/16/16 09:33 ZOYA LEONE MD Discharge Date: 10/22/16 - Discharge Diagnosis (1) Acute diastolic heart failure Is this a current diagnosis for this admission?: Yes (2) Nephrotic syndrome Is this a current diagnosis for this admission?: Yes (3) Anasarca Is this a current diagnosis for this admission?: Yes (4) Chronic cutaneous venous stasis ulcer Is this a current diagnosis for this admission?: Yes (5) Chronic diastolic heart failure Is this a current diagnosis for this admission?: Yes (6) Hypoalbuminemia Is this a current diagnosis for this admission?: Yes (7) Pulmonary hypertension Is this a current diagnosis for this admission?: Yes - Additional Information Resuscitation Status: Full Code Discharge Activity: Activity As Tolerated, Balance Activity w/Rest, Weigh Daily Home Medications: Furosemide [Lasix] 40 mg PO QID 10/15/16 Magnesium Oxide [Mag-Ox 400 mg Tablet] 400 mg PO BID 10/15/16 Metoprolol Succinate [Toprol Xl 25 mg Tab.sr] 25 mg PO Q12 10/15/16 Multivitamin [Tab-A-Castillo (Multiple Vitamin) Tablet] 1 tab PO DAILY 10/15/16 Simvastatin [Zocor 20 mg Tablet] 20 mg PO QPM 10/15/16 Apixaban [Eliquis 2.5 mg Tablet] 2.5 mg PO BID #60 tablet 10/22/16 Valsartan [Diovan 160 mg Tablet] 160 mg PO DAILY #90 tablet 10/22/16 History of Present Illness History of Present Illness: ELEONORA SHEFFIELD is a 56 year old male, he has multiple comorbid conditions including chronic diastolic heart failure, nephrotic range proteinuria/ nephrotic syndrome, severe morbid obesity, chronic kidney disease stage III, sedentary lifestyle. He came to the emergency room because of shortness of breath and tremendous anasarca, the last time she was admitted in this hospital was on July 30, 2016 for similar presentation before that he was admitted on June 11, 2016 for similar presentation and on both occasions he was treated with Lasix infusion. He has massive anasarca with tremendous scrotal swelling, there is severe chronic venous hypertension of both lower extremities, there is tremendous skin changes of both lower extremities, severe lichenification of the legs. This is going to be a pattern of readmission for the same problem, he is not ambulatory and he does not follow up in the office, he does not leave his residence. Last year I had a conference with his mother and the patient for him to consider bariatric surgery because I did not see a way out of his health problems without significant weight loss. He has nephrotic syndrome which is also weight related. I also discussed with him and his brother today about prognosis and my original recommendation for him to undergo bariatric surgery but patient is not open to the idea, it seemed that he has given up, he feels comfortable with his present situation revolving between hospital and is residence. Hospital Course Hospital Course: Patient was admitted because of anasarca due to combination of nephrotic syndrome acute diastolic heart failure and pulmonary hypertension. 2D echo was done he showed ejection fraction 55% of left ventricle severe pulmonary hypertension, dilated chambers including left atrium right atrium. He was treated with Lasix infusion and diuresed quite well. There is no systolic heart failure in this patient, most of his problem is diastolic heart failure and severe hypertension due to morbid obesity. He has a history of atrial fibrillation, he will continue Eliquis. Physical Exam Vital Signs: Temp Pulse Resp BP Pulse Ox 97.3 F 120 H 20 94/61 L 91 L 10/22/16 15:56 10/22/16 15:56 10/22/16 15:56 10/22/16 15:56 10/22/16 15:56 Intake & Output 10/21/16 10/22/16 10/23/16 06:59 06:59 06:59 Intake Total 2070 762 1360 Balance 2070 762 1360 Weight 382.5 kg General appearance: PRESENT: no acute distress Eye exam: PRESENT: PERRLA Respiratory exam: PRESENT: clear to auscultation dell Cardiovascular exam: PRESENT: +S1, +S2 GI/Abdominal exam: PRESENT: soft Neurological exam: PRESENT: alert Results Laboratory Results: 10/22/16 18:25 10/22/16 18:25 10/22/16 10/22/16 18:25 18:25 WBC 4.8 RBC 4.85 Hgb 13.2 L Hct 40.6 MCV 84 MCH 27.2 MCHC 32.5 RDW 16.5 H Plt Count 203 Seg Neutrophils % 59.0 Lymphocytes % 18.4 Monocytes % 13.2 H Eosinophils % 8.3 H Basophils % 1.1 Absolute Neutrophils 2.8 Absolute Lymphocytes 0.9 Absolute Monocytes 0.6 Absolute Eosinophils 0.4 Absolute Basophils 0.1 Sodium 143.9 Potassium 4.0 Chloride 98 Carbon Dioxide 34 H Anion Gap 12 BUN 34 H Creatinine 1.41 H Est GFR ( Amer) > 60 Est GFR (Non-Af Amer) 52 L Glucose 133 H Calcium 9.4 10/19/16 04:45 NT-Pro-B Natriuret Pep 35138 H Impressions: Chest X-Ray 10/15/16 12:53 IMPRESSION: No significant interval change. Cardiomegaly with pulmonary vascular congestion. Other findings as noted above
[2016-10-22] MEDS: GUAIFENESIN SYRP 200 MG/10 ML UDC PO PRN (20:10)
[2016-10-23] MEDS: CARVEDILOL 3.125 MG TABLET PO SCH (06:28)
[2016-10-23] MEDS: ENOXAPARIN SODIUM INJ 40 MG/0.4 ML DISP.SYRIN SUBCUT SCH (09:30)
[2016-10-23] MEDS: POTASSIUM CHLORIDE 10 MEQ TABLET.SA PO SCH (11:02)
[2016-10-23] MEDS: LISINOPRIL 5 MG TABLET PO SCH (11:02)
[2016-10-23 13:15] VITALS: BP 103/58
== END 2016-10-23 14:00 | disposition home health service (06) | DRG 291 ==
LOC: ER 12:00 → EH 16:41 → UNDOADMIN 16:41 → INTOOBSV 21:25 → EH 21:25 → 3W 23:00 → EH 23:00 → OBSVTOIN 10-16 09:33 → 4N 10-18 01:23
PROVIDERS: ADMIT Internal Medicine; ATTEND Internal Medicine
DX: I13.0 Hypertensive heart and chronic kidney disease with heart failure and stage 1 through stage 4 chronic kidney disease, or unspecified chronic kidney disease (principal); I50.33 Acute on chronic diastolic (congestive) heart failure; Z68.42 Body mass index [BMI] 45.0-49.9, adult; L97.821 Non-pressure chronic ulcer of other part of left lower leg limited to breakdown of skin; L97.811 Non-pressure chronic ulcer of other part of right lower leg limited to breakdown of skin; N18.3 Chronic kidney disease, stage 3 (moderate); E66.01 Morbid (severe) obesity due to excess calories; I83.015 Varicose veins of right lower extremity with ulcer other part of foot; M19.90 Unspecified osteoarthritis, unspecified site; F32.9 Major depressive disorder, single episode, unspecified; J44.9 Chronic obstructive pulmonary disease, unspecified; I73.9 Peripheral vascular disease, unspecified; L97.511 Non-pressure chronic ulcer of other part of right foot limited to breakdown of skin; I25.10 Atherosclerotic heart disease of native coronary artery without angina pectoris; I48.91 Unspecified atrial fibrillation; E78.5 Hyperlipidemia, unspecified; I27.2 Other secondary pulmonary hypertension; F17.210 Nicotine dependence, cigarettes, uncomplicated; L28.0 Lichen simplex chronicus; E88.09 Other disorders of plasma-protein metabolism, not elsewhere classified; R60.1 Generalized edema; Z79.02 Long term (current) use of antithrombotics/antiplatelets; Z86.711 Personal history of pulmonary embolism; Z79.899 Other long term (current) drug therapy
CPT/HCPCS: 36415; 71020; 80048; 80053; 82550; 82553; 83735; 83880; 84484; 85025; 85027; 93005; 93010; 93306; 96374; 99285; G0378; J1650; J1940; J7050

== ENCOUNTER 2017-03-30 10:11 | Inpatient (IN) | payer OTHER, MEDICARE ==
[2017-03-30 10:53] LABS: ABSOLUTE BASOPHILS # (AUTO) 0.1 10^3/uL (0.0-0.2); ABSOLUTE EOSINOPHILS # (AUTO) 0.1 10^3/uL (0.0-0.6); ABSOLUTE LYMPHOCYTES (AUTO) 0.7 10^3/uL (0.5-4.7); ABSOLUTE MONOCYTES (AUTO) 0.7 10^3/uL (0.1-1.4); ABSOLUTE NEUT (AUTO) 4.8 10^3/uL (1.7-8.2); BASOPHILS % (AUTO) 0.9 % (0-2); EOSINOPHILS % (AUTO) 1.8 % (0-6); HEMATOCRIT 39.4 % (37.9-51.0); HGB HCT DIFFERENCE -0.4; LYMPHOCYTES % (AUTO) 10.4 % (13-45); MEAN CORPUSCULAR HEMOGLOBIN 27.5 pg (27.0-33.4); MEAN CORPUSCULAR VOLUME 83 fl (80-97); MONOCYTES % (AUTO) 11.2 % (3-13); RED BLOOD COUNT 4.74 10^6/uL (4.35-5.55); RED CELL DISTRIBUTION WIDTH 18.3 % (11.5-14.0); SEGMENTED NEUTROPHILS % (AUTO) 75.7 % (42-78); VENOUS BLOOD BASE EXCESS -0.3 mmol/L; VENOUS BLOOD HCO3 27.7 mmol/L (20-32); VENOUS BLOOD PCO2 59.7 mmHg (35-63); VENOUS BLOOD PH 7.28 (7.30-7.42); WHITE BLOOD COUNT 6.3 10^3/uL (4.0-10.5)
[2017-03-30 11:01] LABS: PROTHROMBIN TIME 19.7 SEC (11.4-15.4)
[2017-03-30 11:17] LABS: D-DIMER 3.11 ug/mL (0.00-0.50)
[2017-03-30 11:20] LABS: ALANINE AMINOTRANSFERASE 24 U/L (21-72); ALBUMIN 3.8 g/dL (3.5-5.0); ALKALINE PHOSPHATASE 61 U/L (38-126); ANION GAP 15 (5-19); ASPARTATE AMINO TRANSFERASE 29 U/L (17-59); BILIRUBIN,DIRECT 2.3 mg/dL (0.0-0.4); BILIRUBIN,TOTAL 3.9 mg/dL (0.2-1.3); BLOOD UREA NITROGEN 22 mg/dL (7-20); CALCIUM 9.4 mg/dL (8.4-10.2); CARBON DIOXIDE 27 mmol/L (22-30); CHLORIDE 101 mmol/L (98-107); CREATININE RESULT 1.49 mg/dL (0.52-1.25); GLUCOSE 79 mg/dL (75-110); POTASSIUM 3.6 mmol/L (3.6-5.0); SODIUM 142.9 mmol/L (137-145); TOTAL PROTEIN 8.5 g/dL (6.3-8.2)
--- NOTE | 2017-03-30 11:56 | ER Document Report ---
ED General - General Chief Complaint: Shortness Of Breath Stated Complaint: WOUND CHECK Time Seen by Provider: 03/30/17 11:38 TRAVEL OUTSIDE OF THE [place] IN LAST 30 DAYS: No - HPI Notes: 56 year old male with history including chronic diastolic heart failure, paroxysmal atrial fibrillation, nephrotic syndrome, severe morbid obesity, chronic kidney disease stage III, sedentary lifestyle presents with chief complaint of increased shortness of breath the last 3 or 4 days. He notes he has had increased fluid retention particularly in the right lower extremity. He notes scrotal edema as well. Shortness of breath is moderate. No clear fever but has some chills. Basically states she has no appetite and has not eaten in about a week. He denies any specific pain. Reportedly is supposed to be on Eliquis but he states he is not taking his medications because he cannot afford them. - Related Data Allergies/Adverse Reactions: No Known Allergies Allergy (Verified 07/28/16 09:39) Past Medical History - Social History Smoking Status: Former Smoker Chew tobacco use (# tins/day): No Frequency of alcohol use: None Drug Abuse: None Family History: Reviewed & Not Pertinent - Past Medical History Cardiac Medical History: Reports: Hx Atrial Fibrillation, Hx Congestive Heart Failure, Hx Coronary Artery Disease, Hx Hypercholesterolemia, Hx Hypertension, Hx Peripheral Vascular Disease, Hx Pulmonary Embolism Pulmonary Medical History: Reports: Hx COPD, Hx Sleep Apnea Renal/ Medical History: Reports: Hx Renal Insufficiency. Denies: Hx Peritoneal Dialysis GI Medical History: Reports: Hx Gastritis, Hx Ulcerative Colitis Musculoskeltal Medical History: Reports Hx Arthritis Psychiatric Medical History: Reports: Hx Depression Past Surgical History: Reports: Hx Tonsillectomy, Other - Tooth extraction - Immunizations Hx Diphtheria, Pertussis, Tetanus Vaccination: No Review of Systems - Review of Systems -: Yes All other systems reviewed and negative Physical Exam - Vital signs Vitals: Pulse Ox 94 03/30/17 10:19 - Notes Notes: GENERAL: VS as per nursing doc. unkempt, chronically ill-appearing male with mild tachypnea. HEAD: Atraumatic, normocephalic. EYES: Pupils equal round and reactive to light, extraocular movements intact, sclera anicteric, no conjunctival injection or discharge. ENT: Moist mucous membranes. NECK: Normal range of motion, supple without lymphadenopathy. LUNGS: Scattered crackles HEART: Tachycardic, irregularly irregular with heart rate of 120s-130s ABDOMEN: Soft, non-tender, anasarca noted EXTREMITIES: Massive legs with diffuse edema noted much worse to the right lower extremity where he has some wounds with erythema particularly over the anterior portion of his leg. He has a smaller wound over the left lower extremity which has a minimal amount of clear drainage. : Large amount scrotal edema. NEUROLOGICAL: No focal neurologic weakness or numbness. PSYCH: Normal mood, normal affect. SKIN: Chronic venous stasis changes with overlying acute abnormalities as noted above. There is a large ulceration just above the lateral malleolus and posterior with malodorous discharge. Large ulceration of the dorsum of the left foot in addition to the medial right lower extremity. Course - Vital Signs Vital signs: Temp Pulse Resp BP Pulse Ox 30 H 128/95 H 93 03/30/17 13:30 03/30/17 13:30 03/30/17 13:30 - Laboratory Result Diagrams: 03/30/17 10:33 03/30/17 10:33 Laboratory results interpreted by me: 03/30/17 03/30/17 03/30/17 10:33 10:33 10:33 Hgb 13.0 L RDW 18.3 H Lymphocytes % 10.4 L PT 19.7 H D-Dimer 3.11 H VBG pH BUN 22 H Creatinine 1.49 H Est GFR ( Amer) 59 L Est GFR (Non-Af Amer) 49 L Total Bilirubin 3.9 H Direct Bilirubin 2.3 H NT-Pro-B Natriuret Pep Total Protein 8.5 H 03/30/17 03/30/17 10:33 10:33 Hgb RDW Lymphocytes % PT D-Dimer VBG pH 7.28 L BUN Creatinine Est GFR ( Amer) Est GFR (Non-Af Amer) Total Bilirubin Direct Bilirubin NT-Pro-B Natriuret Pep 67866 H Total Protein - EKG Interpretation by Ga Rhythm: A.Fib - 105, atrial fibrillation, nonspecific ST abnormalities, QRS of normal duration - Consults Dr. Ny Time consulted: 12:47 - Recommends [facility] admit. Discharge - Discharge Clinical Impression: Anasarca, Cellulitis, Acute diastolic heart failure, Atrial fibrillation Condition: Fair Disposition: ADMITTED INPATIENT Admitting Provider: Yanely Unit Admitted: [facility]
--- NOTE | 2017-03-30 12:16 | RADIOLOGY REPORT (SQ) ---
EXAM DESCRIPTION: CHEST SINGLE VIEW COMPLETED DATE/TIME: 03/30/2017 12:09 pm REASON FOR STUDY: Dyspnea COMPARISON: 10/15/2016. NUMBER OF VIEWS: One view. TECHNIQUE: Single frontal radiographic view of the chest acquired. LIMITATIONS: None. FINDINGS: LUNGS AND PLEURA: No opacities, masses or pneumothorax. Small right pleural effusion. MEDIASTINUM AND HILAR STRUCTURES: No masses or contour abnormality. HEART AND VASCULATURE: Cardiac enlargement. Vascular congestion. BONES: No acute findings. HARDWARE: None in the chest. OTHER: No other significant finding. IMPRESSION: CARDIAC ENLARGEMENT. VASCULAR CONGESTION. TECHNICAL DOCUMENTATION: JOB ID: [id number] [employer]- All Rights Reserved
[2017-03-30] MEDS ORDERED: PIPERACILLIN/TAZOBACTAM 3.375 GM VIAL IV ONE (12:39)
[2017-03-30] MEDS ORDERED: FUROSEMIDE INJ/PF 20 MG/2 ML SDV IV ONE (12:39)
[2017-03-30] MEDS ORDERED: DILTIAZEM HCL INJ 25 MG/5 ML VIAL IV ONE (12:41)
--- NOTE | 2017-03-30 12:52 | EKG REPORT ---
SEVERITY:- ABNORMAL ECG - ATRIAL FIBRILLATION INFERIOR INFARCT, OLD CONSIDER ANTERIOR INFARCT LATERAL LEADS ARE ALSO INVOLVED BORDERLINE PROLONGED QT INTERVAL : Confirmed by: Juan Daniel Rodriguez MD 30-Mar-2017 12:51:28
--- NOTE | 2017-03-30 14:43 | XCELERA REPORT ---
[address] [address] Lower Extremity Venous Evaluation Name: ELEONORA SHEFFIELD Age: 56 yrs Gender: Male : 1960 Patient Status: Inpatient Patient Location: [place] [id number]^A Study Date: 03/30/2017 12:48 PM Procedure: Color flow and duplex imaging of the veins of the right lower extremity as well as the left Common Femoral vein. Reason For Study: RLE Pain/Swelling Ordering Physician: ADRIAN PERSON Performed By: Bernardo Malcolm Right Sided Venous Evaluation Severe leg edema notes on ultrasound. Peroneal vein difficult to image due to body habitus. Normal vessel filling wall to wall, compression and augmentation as well as Colour flow down to the infrageniculate veins. Left Sided Venous Evaluation The left common femoral vein is fully compressible. Spontaneous and phasic flow is present in the left common femoral vein. Interpretation Summary No duplex evidence of DVT or obstruction in the right lower extremity nor in the left Common Femoral vein. : ADRIAN PERSON [place]
[2017-03-30] MEDS ORDERED: VANCOMYCIN HCL 0 MG in DEXTROSE 5%-WATER 250 ML IV NR (17:30)
[2017-03-30] MEDS ORDERED: ASPIRIN 81 MG TABLET, CHEWABLE PO ONE (18:00)
[2017-03-30] MEDS: VANCOMYCIN HCL 1,250 MG in DEXTROSE 5%-WATER 250 ML IV SCH (18:14)
[2017-03-30 18:16] LABS: PROTHROMBIN TIME 18.9 SEC (11.4-15.4)
[2017-03-30 18:17] LABS: PARTIAL THROMBOPLASTIN TIME 33.6 SEC (23.5-35.8)
[2017-03-30] MEDS ORDERED: ENOXAPARIN SODIUM INJ 40 MG/0.4 ML DISP.SYRIN SUBCUT ONE (18:30)
[2017-03-30 18:33] LABS: LIPASE 49.8 U/L (23-300); PHOSPHORUS 4.7 mg/dL (2.5-4.5)
[2017-03-30 18:48] LABS: CREATINE KINASE MB 0.7 ng/mL (<4.55); TROPONIN I 0.019 ng/mL
[2017-03-30 19:04] LABS: THYROID STIMULATING HORMONE 1.18 uIU/mL (0.47-4.68)
--- NOTE | 2017-03-30 19:05 | PDOC CONSULTATION ---
Consultation Consult Date: 03/30/17 Attending physician:: ZOYA LEONE Consult reason:: Bilateral lower extremity ulcers History of Present Illness Admission Date/PCP: 03/30/17 17:19 ZOYA LEONE MD Patient complains of: Fluid retention, Shortness of breath History of Present Illness: ELEONORA SHEFFIELD is a 56 year old male who presented to [facility] ER with progressive fluid retention and swelling of the RLE. Prior history of venous stasis ulcers 2nd to CHF. He has had resolution of the bilateral lower extremity ulcers with improvement of his CHF outpatient and going to wound care regularly. Currently he has 2 polymorphous superficial ulcers to the RLE below the knee, one anterior medial the other posterior. Largest diameter of the anterior ulcer roughly measures 8cm in diameter, the posterior 7cm. No surrounding cellulitis, edema 2+ pitting noted to bilateral lower extremities. Pulses are intact bilaterally. He denies any fever, chest pain, nausea/vomiting or diarrhea. He does have complaints of retaining water chronically for the last several days to weeks. Past Medical History Cardiac Medical History: Reports: Atrial Fibrillation, Congestive Heart Failure , Coronary Artery Disease, Hyperlipidema, Hypertension, Peripheral Vascular Disease, Pulmonary Embolism Pulmonary Medical History: Reports: Chronic Obstructive Pulmonary Disease (COPD) , Sleep Apnea GI Medical History: Reports: Ulcerative Colitis Musculoskeltal Medical History: Reports: Arthritis Psychiatric Medical History: Reports: Depression Past Surgical History Past Surgical History: Reports: Tonsillectomy, Other - Tooth extraction Social History Smoking Status: Former Smoker Frequency of Alcohol Use: None Hx Recreational Drug Use: No Drugs: None Hx Prescription Drug Abuse: No - Advance Directive Resuscitation Status: Full Code Family History Family History: Reviewed & Not Pertinent Parental Family History Reviewed: Yes Children Family History Reviewed: Yes Sibling(s) Family History Reviewed.: Yes Medication/Allergy Home Medications: Aspirin [Aspirin 81 mg Chewable Tablet] 81 mg PO DAILY 03/30/17 Furosemide [Lasix 40 mg Tablet] 80 mg PO Q12 03/30/17 Lisinopril [Prinivil] 20 mg PO DAILY 03/30/17 Metoprolol Succinate [Toprol Xl 25 mg Tab.sr] 25 mg PO QHS 03/30/17 Multivit-Min/FA/Lycopen/Lutein [Centrum Silver Men Tablet] 1 each PO DAILY 03/30 Simvastatin [Zocor 10 mg Tablet] 10 mg PO QHS 03/30/17 Allergies/Adverse Reactions: No Known Allergies Allergy (Verified 07/28/16 09:39) Review of Systems Review of Systems: Admits to SOB, bilateral lower extremity pain worse in the Right leg, weakness and chills Denies any fever, chest pain, nausea/vomiting, difficulty urinating or defacating, seizures, stroke, peripheral neuropathy or muscular weakness Constitutional: ABSENT: chills, fever(s), headache(s), weight gain, weight loss Physical Exam Vital Signs: Temp Pulse Resp BP Pulse Ox 97.8 F 118 H 20 137/76 H 89 L 03/30/17 15:56 03/30/17 15:56 03/30/17 15:56 03/30/17 15:56 03/30/17 15:56 Intake & Output 03/29/17 03/30/17 03/31/17 06:59 06:59 06:59 Weight 162.2 kg Exam: Head: atraumatic, normocephalic Chest: diminished breath sounds bilaterally, no w/r/r Cards: RRR, no m/r/g Abdomen: distended with anasarca, no pain, (+)BS Ext: edema bilaterally lower extremities from thigh to ankles with longstanding skin changes 2nd to edema, open ulcers to right lower extremity superficial, no cellulitis, DP pulses intact bilaterally 2/3+ Neuro A&Ox3, CN 2-12 grossly intact Results Impressions: Chest X-Ray 03/30/17 11:40 IMPRESSION: CARDIAC ENLARGEMENT. VASCULAR CONGESTION. Assessment & Plan - Diagnosis (1) Bilateral leg ulcer Is this a current diagnosis for this admission?: No Plan: Bilateral unna boots to the level of the knee Optimization of CHF to assist with healing of wounds with offloading of fluid Daily dressing changes
[2017-03-30] MEDS: IPRATROPIUM/ALBUTEROL 0.5-2.5 MG/3 ML AMPUL NEB SCH (20:06)
--- NOTE | 2017-03-30 20:38 | PDOC H&P ---
History of Present Illness Admission Date/PCP: 03/30/17 17:19 ZOYA LEONE MD History of Present Illness: Patient is a 56-year-old male, he has multiple comorbid conditions including chronic diastolic heart failure, nephrotic syndrome, severe morbid obesity, chronic kidney disease stage III, sedentary lifestyle, he came to the emergency room for evaluation of progressive shortness of breath and increase fluid retention. In the emergency room was evaluated, a venous blood gas was done the pH was 7.28, PCO2 59 suggesting respiratory acidosis. Patient is very edematous is extremely obese he also have bilateral lower chronic venous stasis ulcer which has progressively gotten worse. The right leg Ulcer is bigger with more rugged edges compared to the left ulcer it is extremely foul-smelling with very offensive odor. The odor in the room is so offensive that the nursing staff and myself require a facemask to minimize the offensive odor..I discussed advance care plan with him today he wants to be a DNR status. Past Medical History Cardiac Medical History: Reports: Atrial Fibrillation, Coronary Artery Disease, Hyperlipidema, Hypertension, Peripheral Vascular Disease, Pulmonary Embolism, Other - Chronic diastolic heart failure Pulmonary Medical History: Reports: Chronic Obstructive Pulmonary Disease (COPD) , Sleep Apnea GI Medical History: Reports: Ulcerative Colitis Musculoskeltal Medical History: Reports: Arthritis Psychiatric Medical History: Reports: Depression Past Surgical History Past Surgical History: Reports: Tonsillectomy, Other - Tooth extraction Social History Smoking Status: Former Smoker Frequency of Alcohol Use: None Hx Recreational Drug Use: No Drugs: None Hx Prescription Drug Abuse: No - Advance Directive Resuscitation Status: Full Code Family History Family History: Reviewed & Not Pertinent Parental Family History Reviewed: Yes Children Family History Reviewed: Yes Sibling(s) Family History Reviewed.: Yes Medication/Allergy Home Medications: Aspirin [Aspirin 81 mg Chewable Tablet] 81 mg PO DAILY 03/30/17 Furosemide [Lasix 40 mg Tablet] 80 mg PO Q12 03/30/17 Lisinopril [Prinivil] 20 mg PO DAILY 03/30/17 Metoprolol Succinate [Toprol Xl 25 mg Tab.sr] 25 mg PO QHS 03/30/17 Multivit-Min/FA/Lycopen/Lutein [Centrum Silver Men Tablet] 1 each PO DAILY 03/30 Simvastatin [Zocor 10 mg Tablet] 10 mg PO QHS 03/30/17 Allergies/Adverse Reactions: No Known Allergies Allergy (Verified 07/28/16 09:39) Review of Systems Constitutional: PRESENT: weight gain Eyes: ABSENT: visual disturbances Ears: ABSENT: hearing changes Cardiovascular: PRESENT: dyspnea on exertion, edema Respiratory: PRESENT: dyspnea Gastrointestinal: PRESENT: bloating Genitourinary: ABSENT: dysuria, hematuria Integumentary: ABSENT: rash, wounds Neurological: PRESENT: paresthesias Endocrine: ABSENT: cold intolerance, heat intolerance, menstrual abnormalities, polydipsia, polyuria Hematologic/Lymphatic: ABSENT: easy bleeding, easy bruising, lymphadenopathy Physical Exam Vital Signs: Temp Pulse Resp BP Pulse Ox 97.8 F 118 H 20 137/76 H 89 L 03/30/17 15:56 03/30/17 15:56 03/30/17 15:56 03/30/17 15:56 03/30/17 15:56 Intake & Output 03/29/17 03/30/17 03/31/17 06:59 06:59 06:59 Weight 162.2 kg General appearance: PRESENT: other - Patient is morbidly obese, stuporous but arousable Head exam: PRESENT: atraumatic, normocephalic Eye exam: PRESENT: PERRLA, scleral icterus Mouth exam: PRESENT: dry mucosa Neck exam: PRESENT: full ROM Respiratory exam: PRESENT: decreased breath sounds Cardiovascular exam: PRESENT: irregular rhythm, +S1, +S2 Pulses: PRESENT: normal dorsalis pedis pul, +2 pedal pulses bilateral Vascular exam: PRESENT: normal capillary refill GI/Abdominal exam: PRESENT: other - There is peau d' orange appearance of the abdominal wall, it is edematous Rectal exam: PRESENT: deferred Extremities exam: PRESENT: other - There is bilateral lower extremity edema, there is bilateral ulcers on both legs the right also is bigger with more rugged edges with offensive odor suggesting infection. Neurological exam: PRESENT: alert Skin exam: PRESENT: erythema Results Laboratory Results: 03/30/17 03/30/17 03/30/17 17:50 17:50 17:50 Phosphorus 4.7 H Magnesium 2.0 Ammonia 22.9 Amylase 73 Lipase 49.8 TSH 1.18 Free T4 1.98 03/30/17 03/30/17 03/30/17 17:50 17:50 17:50 Creatine Kinase 74 CK-MB (CK-2) 0.70 Troponin I 0.019 NT-Pro-B Natriuret Pep 07202 H Impressions: Chest X-Ray 03/30/17 11:40 IMPRESSION: CARDIAC ENLARGEMENT. VASCULAR CONGESTION. Assessment & Plan - Diagnosis (1) Acute respiratory acidosis Is this a current diagnosis for this admission?: Yes Plan: He has hypercapnic respiratory acidosis he need noninvasive positive pressure ventilation with BiPAP (2) Chronic venous hypertension (idiopathic) with ulcer and inflammation of bilateral lower extremity Is this a current diagnosis for this admission?: Yes Plan: He has chronic venous hypertension of both lower extremities with ulcer and inflammation, the ulcer is foul-smelling, he has a history of MRSA osteomyelitis and celluitis , he will empirically be treated with intravenous vancomycin and intravenous Zosyn to cover gram-negative organism and MRSA.Surgical consultation is obtained for Unna boot placement (3) Acute diastolic heart failure Is this a current diagnosis for this admission?: Yes (4) Chronic atrial fibrillation Is this a current diagnosis for this admission?: Yes (5) Chronic cutaneous venous stasis ulcer Is this a current diagnosis for this admission?: Yes (6) Hypoalbuminemia Is this a current diagnosis for this admission?: Yes (7) Morbid obesity Is this a current diagnosis for this admission?: Yes (8) Nephrotic syndrome Is this a current diagnosis for this admission?: Yes (9) Paroxysmal atrial fibrillation Is this a current diagnosis for this admission?: Yes (10) Acute kidney injury Is this a current diagnosis for this admission?: Yes Plan: Patient is on very high doses of furosemide, there is evidence that he has intravascular volume depletion, will hold off on diuretic for now - Inpatient Certification Based on my medical assessment, after consideration of the patient's comorbidities, presenting symptoms, or acuity I expect that the services needed warrant INPATIENT care.: Yes I certify that my determination is in accordance with my understanding of Medicare's requirements for reasonable and necessary INPATIENT services [42 CFR 412.3e].: Yes Medical Necessity: Need Close Monitoring Due to Risk of Patient Decompensation, Need For IV Fluids, Need for IV Antibiotics
[2017-03-30] MEDS: SIMVASTATIN 10 MG TABLET PO SCH (23:06)
[2017-03-30] MEDS: METOPROLOL SUCCINATE 25 MG TAB.SR.24H PO SCH (23:07)
[2017-03-30] MEDS: PIPERACILLIN SODIUM/TAZOBACTAM 3.375 GM in DEXTROSE 5%-WATER 100 ML IV SCH (23:16)
[2017-03-31 01:31] LABS: CREATINE KINASE MB 0.69 ng/mL (<4.55); TROPONIN I 0.016 ng/mL
[2017-03-31] MEDS: PIPERACILLIN SODIUM/TAZOBACTAM 3.375 GM in DEXTROSE 5%-WATER 100 ML IV SCH ×4 (03:13→20:44)
[2017-03-31 05:03] LABS: APPEARANCE,URINE CLEAR; BILIRUBIN,URINE NEGATIVE (NEGATIVE); GLUCOSE, URINE NEGATIVE (NEGATIVE); KETONES,URINE NEGATIVE (NEGATIVE); LEUKOCYTE ESTERASE,URINE NEGATIVE (NEGATIVE); NITRITE,URINE NEGATIVE (NEGATIVE); PROTEIN,URINE 30 mg/dL (NEGATIVE); URINE SPECIFIC GRAVITY 1.013
[2017-03-31 05:18] LABS: URINE POTASSIUM 32.9 mmol/L (17-99)
[2017-03-31 05:51] LABS: URINE BARBITURATES SCREEN NEGATIVE; URINE METHADONE SCREEN NEGATIVE; URINE OPIATES LOW NEGATIVE; URINE PHENCYCLIDINE SCREEN NEGATIVE
[2017-03-31] MEDS: VANCOMYCIN HCL 1,250 MG in DEXTROSE 5%-WATER 250 ML IV SCH ×2 (06:18→18:05)
[2017-03-31 06:37] LABS: HEMATOCRIT 39.6 % (37.9-51.0); HEMOGLOBIN 12.8 g/dL (13.5-17.0); HGB HCT DIFFERENCE -1.2; MEAN CORPUSCULAR HEMOGLOBIN 27.1 pg (27.0-33.4); MEAN CORPUSCULAR HGB CONC 32.3 g/dL (32.0-36.0); MEAN CORPUSCULAR VOLUME 84 fl (80-97); RED BLOOD COUNT 4.72 10^6/uL (4.35-5.55); RED CELL DISTRIBUTION WIDTH 18.1 % (11.5-14.0); WHITE BLOOD COUNT 6.2 10^3/uL (4.0-10.5)
[2017-03-31 06:44] LABS: ALANINE AMINOTRANSFERASE 10 U/L (21-72); ALBUMIN 3.2 g/dL (3.5-5.0); ALKALINE PHOSPHATASE 53 U/L (38-126); ANION GAP 13 (5-19); ASPARTATE AMINO TRANSFERASE 26 U/L (17-59); BILIRUBIN,DIRECT 1.7 mg/dL (0.0-0.4); BILIRUBIN,TOTAL 2.5 mg/dL (0.2-1.3); BLOOD UREA NITROGEN 22 mg/dL (7-20); CALCIUM 9.2 mg/dL (8.4-10.2); CARBON DIOXIDE 28 mmol/L (22-30); CHLORIDE 103 mmol/L (98-107); CHOLESTEROL 88.38 mg/dL (0-200); CREATINE KINASE 103 U/L (55-170); CREATININE RESULT 1.41 mg/dL (0.52-1.25); Direct HDL 20 mg/dL (>40); GLUCOSE 103 mg/dL (75-110); POTASSIUM 3.9 mmol/L (3.6-5.0); SODIUM 143.6 mmol/L (137-145); TOTAL PROTEIN 7.3 g/dL (6.3-8.2); TRIGLYCERIDES 86 mg/dL (<150)
[2017-03-31 06:54] LABS: CREATINE KINASE MB 0.88 ng/mL (<4.55); DIRECT LDL 46 mg/dL (<100); TROPONIN I 0.031 ng/mL
[2017-03-31 07:40] LABS: BASOPHILS % (MANUAL) 1 % (0-2); EOSINOPHILS % (MANUAL) 2 % (0-6); LYMPHOCYTES % (MANUAL) 12 % (13-45); TOTAL CELLS COUNTED 100; TOXIC GRANULATION SLIGHT
[2017-03-31 07:41] LABS: ANISOCYTOSIS 2+; BURR CELLS 1+; HYPOCHROMASIA SLIGHT; OVALOCYTES 1+; PLATELET CLUMPS PRESENT; POIKILOCYTOSIS 2+; POLYCHROMASIA SLIGHT; TOXIC VACUOLATION PRESENT
[2017-03-31] MEDS: IPRATROPIUM/ALBUTEROL 0.5-2.5 MG/3 ML AMPUL NEB SCH ×4 (08:22→19:57)
[2017-03-31] MEDS: ENOXAPARIN SODIUM INJ 40 MG/0.4 ML DISP.SYRIN SUBCUT SCH (10:05)
[2017-03-31] MEDS: ASPIRIN 81 MG TABLET, CHEWABLE PO SCH (10:07)
[2017-03-31 11:48] LABS: ARTERIAL BLOOD BASE EXCESS 2.8 mmol/L; ARTERIAL BLOOD O2 SATURATION 90.7 % (94-98)
--- NOTE | 2017-03-31 14:35 | PDOC PROGRESS REPORT ---
Subjective Progress Note for:: 03/31/17 Subjective:: No events overnight Night nurse spent time cleaning wounds and Unna boot going on today wounds x2, anterior/medial measures 10 x 7 x 0.5 cm polymorphous, posterior 7 x 5 x 0.5 cms Physical Exam Vital Signs: Temp Pulse Resp BP Pulse Ox 97.5 F 51 L 22 H 110/72 98 03/31/17 12:36 03/31/17 12:36 03/31/17 12:36 03/31/17 12:36 03/31/17 12:36 Intake & Output 03/30/17 03/31/17 04/01/17 06:59 06:59 06:59 Intake Total 740 Balance 740 Weight 169.9 kg 169.9 kg General appearance: PRESENT: no acute distress, morbidly obese Head exam: PRESENT: atraumatic, normocephalic Mouth exam: PRESENT: moist, neck supple Neck exam: ABSENT: lymphadenopathy, tenderness, thyromegaly, tracheal deviation Pulses: PRESENT: normal dorsalis pedis pul GI/Abdominal exam: PRESENT: soft. 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 from chronic heart failure and edema Results Laboratory Results: 03/31/17 06:03 03/31/17 06:03 03/30/17 03/30/17 03/30/17 17:50 17:50 17:50 WBC RBC Hgb Hct MCV MCH MCHC RDW Plt Count Seg Neutrophils % Lymphocytes % Monocytes % Eosinophils % Basophils % Absolute Neutrophils Absolute Lymphocytes Absolute Monocytes Absolute Eosinophils Absolute Basophils Carbonic Acid HCO3/H2CO3 Ratio ABG pH ABG pCO2 ABG pO2 ABG HCO3 ABG O2 Saturation ABG Base Excess FiO2 Sodium Potassium Chloride Carbon Dioxide Anion Gap BUN Creatinine Est GFR ( Amer) Est GFR (Non-Af Amer) Glucose Calcium Phosphorus 4.7 H Magnesium 2.0 Total Bilirubin AST ALT Alkaline Phosphatase Ammonia 22.9 Total Protein Albumin Triglycerides Cholesterol LDL Cholesterol Direct VLDL Cholesterol HDL Cholesterol Amylase 73 Lipase 49.8 TSH 1.18 Free T4 1.98 Urine Color Urine Appearance Urine pH Ur Specific [place] Urine Protein Urine Glucose (UA) Urine Ketones Urine Blood Urine Nitrite Ur Leukocyte Esterase Urine WBC (Auto) Urine RBC (Auto) 09/20/17 09/20/17 09/20/17 04:37 06:03 06:03 WBC 6.2 RBC 4.72 Hgb 12.8 L Hct 39.6 MCV 84 MCH 27.1 MCHC 32.3 RDW 18.1 H Plt Count 173 Seg Neutrophils % Not Reportable Lymphocytes % Not Reportable Monocytes % Not Reportable Eosinophils % Not Reportable Basophils % Not Reportable Absolute Neutrophils Not Reportable Absolute Lymphocytes Not Reportable Absolute Monocytes Not Reportable Absolute Eosinophils Not Reportable Absolute Basophils Not Reportable Carbonic Acid HCO3/H2CO3 Ratio ABG pH ABG pCO2 ABG pO2 ABG HCO3 ABG O2 Saturation ABG Base Excess FiO2 Sodium 143.6 Potassium 3.9 Chloride 103 Carbon Dioxide 28 Anion Gap 13 BUN 22 H Creatinine 1.41 H Est GFR ( Amer) > 60 Est GFR (Non-Af Amer) 52 L Glucose 103 Calcium 9.2 Phosphorus Magnesium Total Bilirubin 2.5 H AST 26 ALT 10 L Alkaline Phosphatase 53 Ammonia Total Protein 7.3 Albumin 3.2 L Triglycerides 86 Cholesterol 88.38 LDL Cholesterol Direct 46 VLDL Cholesterol 17.0 HDL Cholesterol 20 L Amylase Lipase TSH Free T4 Urine Color IGOR Urine Appearance CLEAR Urine pH 5.0 Ur Specific [place] 1.013 Urine Protein 30 H Urine Glucose (UA) NEGATIVE Urine Ketones NEGATIVE Urine Blood MODERATE H Urine Nitrite NEGATIVE Ur Leukocyte Esterase NEGATIVE Urine WBC (Auto) 2 Urine RBC (Auto) 6 03/31/17 10:37 WBC RBC Hgb Hct MCV MCH MCHC RDW Plt Count Seg Neutrophils % Lymphocytes % Monocytes % Eosinophils % Basophils % Absolute Neutrophils Absolute Lymphocytes Absolute Monocytes Absolute Eosinophils Absolute Basophils Carbonic Acid 1.97 H HCO3/H2CO3 Ratio 15:1 ABG pH 7.29 L ABG pCO2 65.5 H ABG pO2 67.1 L ABG HCO3 31.1 H ABG O2 Saturation 90.7 L ABG Base Excess 2.8 FiO2 3 LPM Sodium Potassium Chloride Carbon Dioxide Anion Gap BUN Creatinine Est GFR ( Amer) Est GFR (Non-Af Amer) Glucose Calcium Phosphorus Magnesium Total Bilirubin AST ALT Alkaline Phosphatase Ammonia Total Protein Albumin Triglycerides Cholesterol LDL Cholesterol Direct VLDL Cholesterol HDL Cholesterol Amylase Lipase TSH Free T4 Urine Color Urine Appearance Urine pH Ur Specific [place] Urine Protein Urine Glucose (UA) Urine Ketones Urine Blood Urine Nitrite Ur Leukocyte Esterase Urine WBC (Auto) Urine RBC (Auto) 03/30/17 03/30/17 03/30/17 17:50 17:50 17:50 Creatine Kinase 74 CK-MB (CK-2) 0.70 Troponin I 0.019 NT-Pro-B Natriuret Pep [id number] H 03/30/17 03/30/17 03/31/17 23:48 23:48 06:03 Creatine Kinase 56 103 CK-MB (CK-2) 0.69 Troponin I 0.016 NT-Pro-B Natriuret Pep 03/31/17 06:03 Creatine Kinase CK-MB (CK-2) 0.88 Troponin I 0.031 NT-Pro-B Natriuret Pep Impressions: Chest X-Ray 03/30/17 11:40 IMPRESSION: CARDIAC ENLARGEMENT. VASCULAR CONGESTION. Assessment & Plan - Diagnosis (1) Bilateral leg ulcer Is this a current diagnosis for this admission?: No Plan: Continue unna boots daily till ulcer stability noted then convert to QMWF Monitor for signs of improvement Wound care outpatient critical for continued improvement Call with any questions - Time Time Spent with patient: Less than 15 minutes
--- NOTE | 2017-03-31 15:20 | PDOC PROGRESS REPORT ---
Subjective Progress Note for:: 03/31/17 Subjective:: Patient was admitted yesterday for the management of acute hypercapnic respiratory failure, severe inflammation with infected ulcer associated with chronic venous hypertension of both lower extremities. He is presently requiring BiPAP to support breathing, he has a Unna boot to support the lower extremity swelling and on IV antibiotic for the infection of the lower extremities. Physical Exam Vital Signs: Temp Pulse Resp BP Pulse Ox 97.5 F 51 L 12 110/72 98 03/31/17 12:36 03/31/17 12:36 03/31/17 14:28 03/31/17 12:36 03/31/17 12:36 Intake & Output 03/30/17 03/31/17 04/01/17 06:59 06:59 06:59 Intake Total 740 Balance 740 Weight 169.9 kg 169.9 kg General appearance: PRESENT: severe distress Eye exam: PRESENT: PERRLA Respiratory exam: PRESENT: chest wall tenderness Cardiovascular exam: PRESENT: +S1, +S2 GI/Abdominal exam: PRESENT: soft Extremities exam: PRESENT: other - Lower extremity edema with Unna boots Neurological exam: PRESENT: alert, CN II-XII grossly intact Results Laboratory Results: 03/31/17 06:03 03/31/17 06:03 03/30/17 03/30/17 03/30/17 17:50 17:50 17:50 WBC RBC Hgb Hct MCV MCH MCHC RDW Plt Count Seg Neutrophils % Lymphocytes % Monocytes % Eosinophils % Basophils % Absolute Neutrophils Absolute Lymphocytes Absolute Monocytes Absolute Eosinophils Absolute Basophils Carbonic Acid HCO3/H2CO3 Ratio ABG pH ABG pCO2 ABG pO2 ABG HCO3 ABG O2 Saturation ABG Base Excess FiO2 Sodium Potassium Chloride Carbon Dioxide Anion Gap BUN Creatinine Est GFR ( Amer) Est GFR (Non-Af Amer) Glucose Calcium Phosphorus 4.7 H Magnesium 2.0 Total Bilirubin AST ALT Alkaline Phosphatase Ammonia 22.9 Total Protein Albumin Triglycerides Cholesterol LDL Cholesterol Direct VLDL Cholesterol HDL Cholesterol Amylase 73 Lipase 49.8 TSH 1.18 Free T4 1.98 Urine Color Urine Appearance Urine pH Ur Specific [place] Urine Protein Urine Glucose (UA) Urine Ketones Urine Blood Urine Nitrite Ur Leukocyte Esterase Urine WBC (Auto) Urine RBC (Auto) 03/31/17 03/31/17 03/31/17 04:37 06:03 06:03 WBC 6.2 RBC 4.72 Hgb 12.8 L Hct 39.6 MCV 84 MCH 27.1 MCHC 32.3 RDW 18.1 H Plt Count 173 Seg Neutrophils % Not Reportable Lymphocytes % Not Reportable Monocytes % Not Reportable Eosinophils % Not Reportable Basophils % Not Reportable Absolute Neutrophils Not Reportable Absolute Lymphocytes Not Reportable Absolute Monocytes Not Reportable Absolute Eosinophils Not Reportable Absolute Basophils Not Reportable Carbonic Acid HCO3/H2CO3 Ratio ABG pH ABG pCO2 ABG pO2 ABG HCO3 ABG O2 Saturation ABG Base Excess FiO2 Sodium 143.6 Potassium 3.9 Chloride 103 Carbon Dioxide 28 Anion Gap 13 BUN 22 H Creatinine 1.41 H Est GFR ( Amer) > 60 Est GFR (Non-Af Amer) 52 L Glucose 103 Calcium 9.2 Phosphorus Magnesium Total Bilirubin 2.5 H AST 26 ALT 10 L Alkaline Phosphatase 53 Ammonia Total Protein 7.3 Albumin 3.2 L Triglycerides 86 Cholesterol 88.38 LDL Cholesterol Direct 46 VLDL Cholesterol 17.0 HDL Cholesterol 20 L Amylase Lipase TSH Free T4 Urine Color IGOR Urine Appearance CLEAR Urine pH 5.0 Ur Specific [place] 1.013 Urine Protein 30 H Urine Glucose (UA) NEGATIVE Urine Ketones NEGATIVE Urine Blood MODERATE H Urine Nitrite NEGATIVE Ur Leukocyte Esterase NEGATIVE Urine WBC (Auto) 2 Urine RBC (Auto) 6 03/31/17 10:37 WBC RBC Hgb Hct MCV MCH MCHC RDW Plt Count Seg Neutrophils % Lymphocytes % Monocytes % Eosinophils % Basophils % Absolute Neutrophils Absolute Lymphocytes Absolute Monocytes Absolute Eosinophils Absolute Basophils Carbonic Acid 1.97 H HCO3/H2CO3 Ratio 15:1 ABG pH 7.29 L ABG pCO2 65.5 H ABG pO2 67.1 L ABG HCO3 31.1 H ABG O2 Saturation 90.7 L ABG Base Excess 2.8 FiO2 3 LPM Sodium Potassium Chloride Carbon Dioxide Anion Gap BUN Creatinine Est GFR ( Amer) Est GFR (Non-Af Amer) Glucose Calcium Phosphorus Magnesium Total Bilirubin AST ALT Alkaline Phosphatase Ammonia Total Protein Albumin Triglycerides Cholesterol LDL Cholesterol Direct VLDL Cholesterol HDL Cholesterol Amylase Lipase TSH Free T4 Urine Color Urine Appearance Urine pH Ur Specific [place] Urine Protein Urine Glucose (UA) Urine Ketones Urine Blood Urine Nitrite Ur Leukocyte Esterase Urine WBC (Auto) Urine RBC (Auto) 03/30/17 03/30/17 03/30/17 17:50 17:50 17:50 Creatine Kinase 74 CK-MB (CK-2) 0.70 Troponin I 0.019 NT-Pro-B Natriuret Pep [id number] H 03/30/17 03/30/17 03/31/17 23:48 23:48 06:03 Creatine Kinase 56 103 CK-MB (CK-2) 0.69 Troponin I 0.016 NT-Pro-B Natriuret Pep 03/31/17 06:03 Creatine Kinase CK-MB (CK-2) 0.88 Troponin I 0.031 NT-Pro-B Natriuret Pep Impressions: Chest X-Ray 03/30/17 11:40 IMPRESSION: CARDIAC ENLARGEMENT. VASCULAR CONGESTION. Assessment & Plan - Diagnosis (1) Acute respiratory acidosis Is this a current diagnosis for this admission?: Yes (2) Chronic venous hypertension (idiopathic) with ulcer and inflammation of bilateral lower extremity Is this a current diagnosis for this admission?: Yes (3) Acute diastolic heart failure Is this a current diagnosis for this admission?: Yes (4) Chronic atrial fibrillation Is this a current diagnosis for this admission?: Yes (5) Chronic cutaneous venous stasis ulcer Is this a current diagnosis for this admission?: Yes (6) Hypoalbuminemia Is this a current diagnosis for this admission?: Yes (7) Morbid obesity Is this a current diagnosis for this admission?: Yes (8) Nephrotic syndrome Is this a current diagnosis for this admission?: Yes (9) Paroxysmal atrial fibrillation Is this a current diagnosis for this admission?: Yes (10) Acute kidney injury Is this a current diagnosis for this admission?: Yes - Plan Summary Plan Summary: Continue IV antibiotic, continue noninvasive positive pressure ventilation with BiPAP, continued Unna boots
[2017-03-31] MEDS: SIMVASTATIN 10 MG TABLET PO SCH (22:19)
[2017-03-31] MEDS: METOPROLOL SUCCINATE 25 MG TAB.SR.24H PO SCH (22:19)
[2017-04-01] MEDS: PIPERACILLIN SODIUM/TAZOBACTAM 3.375 GM in DEXTROSE 5%-WATER 100 ML IV SCH ×4 (02:56→21:33)
[2017-04-01] MEDS: VANCOMYCIN HCL 1,250 MG in DEXTROSE 5%-WATER 250 ML IV SCH (06:05)
[2017-04-01 06:30] LABS: ABSOLUTE EOSINOPHILS # (AUTO) 0.2 10^3/uL (0.0-0.6); ABSOLUTE LYMPHOCYTES (AUTO) 0.6 10^3/uL (0.5-4.7); ABSOLUTE MONOCYTES (AUTO) 0.8 10^3/uL (0.1-1.4); ABSOLUTE NEUT (AUTO) 4.2 10^3/uL (1.7-8.2); BASOPHILS % (AUTO) 0.5 % (0-2); HEMATOCRIT 40.2 % (37.9-51.0); HGB HCT DIFFERENCE -1.2; LYMPHOCYTES % (AUTO) 10.6 % (13-45); MEAN CORPUSCULAR HEMOGLOBIN 27.5 pg (27.0-33.4); MEAN CORPUSCULAR HGB CONC 32.3 g/dL (32.0-36.0); MEAN CORPUSCULAR VOLUME 85 fl (80-97); MONOCYTES % (AUTO) 13.4 % (3-13); RED BLOOD COUNT 4.72 10^6/uL (4.35-5.55); RED CELL DISTRIBUTION WIDTH 18.5 % (11.5-14.0); SEGMENTED NEUTROPHILS % (AUTO) 71.5 % (42-78); WHITE BLOOD COUNT 5.9 10^3/uL (4.0-10.5)
[2017-04-01 06:52] LABS: ALANINE AMINOTRANSFERASE 19 U/L (21-72); ALBUMIN 3.2 g/dL (3.5-5.0); ALKALINE PHOSPHATASE 59 U/L (38-126); ANION GAP 12 (5-19); ASPARTATE AMINO TRANSFERASE 29 U/L (17-59); BILIRUBIN,DIRECT 1.4 mg/dL (0.0-0.4); BILIRUBIN,TOTAL 1.7 mg/dL (0.2-1.3); BLOOD UREA NITROGEN 21 mg/dL (7-20); CALCIUM 8.9 mg/dL (8.4-10.2); CARBON DIOXIDE 29 mmol/L (22-30); CHLORIDE 102 mmol/L (98-107); CREATININE RESULT 1.41 mg/dL (0.52-1.25); GLUCOSE 110 mg/dL (75-110); POTASSIUM 3.6 mmol/L (3.6-5.0); SODIUM 143.2 mmol/L (137-145); TOTAL PROTEIN 7.4 g/dL (6.3-8.2)
--- NOTE | 2017-04-01 07:17 | Physician Advisory Note ---
Physician Advisor ProgressNote .: Pursuant to the plan for Bee Faith, I have reviewed the medical record for this patient. Physician Advisor Statement: Excellent documentation of acute diastolic CHF & chronic diastolic CHF! - & of acute respiratory acidosis (tho' need specification of cause) - Please consider documenting, in each note: 1. "Acute hypercapneic & hypoxemic respiratory failure, evidenced by labored breathing & O2 sat only 95% on 5L O2 initially in ED, requiring Bipap" - We are now needing explicit documentation of the physical findings supporting Ac Resp Failure, as payers are trying hard to deny it whenever possible. 2. Whether pt's Afib is chronic or paroxysmal - if both continue to be documented in each note, which type it is will be unclear and coders will have to query for clarification. Thanks! CK
[2017-04-01] MEDS: IPRATROPIUM/ALBUTEROL 0.5-2.5 MG/3 ML AMPUL NEB SCH ×4 (08:20→19:57)
[2017-04-01] MEDS: ENOXAPARIN SODIUM INJ 40 MG/0.4 ML DISP.SYRIN SUBCUT SCH (09:11)
[2017-04-01] MEDS: ASPIRIN 81 MG TABLET, CHEWABLE PO SCH (09:12)
--- NOTE | 2017-04-01 11:13 | PDOC PROGRESS REPORT ---
Subjective Progress Note for:: 04/01/17 Subjective:: No apparent distress. However patient irritated and argumentative. Physical Exam Vital Signs: Temp Pulse Resp BP Pulse Ox 97.6 F 127 H 20 116/68 97 04/01/17 07:29 04/01/17 08:24 04/01/17 08:24 04/01/17 07:29 04/01/17 08:24 Intake & Output 03/31/17 04/01/17 04/02/17 06:59 06:59 06:59 Intake Total 740 1298 Balance 740 1298 Weight 169.9 kg 163.4 kg Extremities exam: PRESENT: other - Bilateral lower extremity edema Unna boots on. Results Laboratory Results: 04/01/17 05:45 04/01/17 05:45 03/31/17 04/01/17 04/01/17 10:37 05:45 05:45 WBC 5.9 RBC 4.72 Hgb 13.0 L Hct 40.2 MCV 85 MCH 27.5 MCHC 32.3 RDW 18.5 H Plt Count 196 Seg Neutrophils % 71.5 Lymphocytes % 10.6 L Monocytes % 13.4 H Eosinophils % 4.0 Basophils % 0.5 Absolute Neutrophils 4.2 Absolute Lymphocytes 0.6 Absolute Monocytes 0.8 Absolute Eosinophils 0.2 Absolute Basophils 0.0 Carbonic Acid 1.97 H HCO3/H2CO3 Ratio 15:1 ABG pH 7.29 L ABG pCO2 65.5 H ABG pO2 67.1 L ABG HCO3 31.1 H ABG O2 Saturation 90.7 L ABG Base Excess 2.8 FiO2 3 LPM Sodium 143.2 Potassium 3.6 Chloride 102 Carbon Dioxide 29 Anion Gap 12 BUN 21 H Creatinine 1.41 H Est GFR ( Amer) > 60 Est GFR (Non-Af Amer) 52 L Glucose 110 Calcium 8.9 Total Bilirubin 1.7 H AST 29 ALT 19 L Alkaline Phosphatase 59 Total Protein 7.4 Albumin 3.2 L 03/30/17 03/30/17 03/30/17 17:50 17:50 17:50 Creatine Kinase 74 CK-MB (CK-2) 0.70 Troponin I 0.019 NT-Pro-B Natriuret Pep [id number] H 03/30/17 03/30/17 03/31/17 23:48 23:48 06:03 Creatine Kinase 56 103 CK-MB (CK-2) 0.69 Troponin I 0.016 NT-Pro-B Natriuret Pep 03/31/17 06:03 Creatine Kinase CK-MB (CK-2) 0.88 Troponin I 0.031 NT-Pro-B Natriuret Pep Impressions: Chest X-Ray 03/30/17 11:40 IMPRESSION: CARDIAC ENLARGEMENT. VASCULAR CONGESTION. Assessment & Plan - Diagnosis (1) Chronic venous hypertension (idiopathic) with ulcer and inflammation of bilateral lower extremity Is this a current diagnosis for this admission?: Yes Plan: Continue Unna boots. Patient would benefit from leg elevations but he does not feel comfortable with leg elevation. Will attempt to keep it elevated as much as he will allow.
--- NOTE | 2017-04-01 20:50 | PDOC PROGRESS REPORT ---
Subjective Progress Note for:: 04/01/17 Subjective:: Patient continues to require noninvasive positive pressure ventilation with BiPAP, he has a history of chronic atrial fibrillation, the acute hypercapnic respiratory failure is probably multifactorial in etiology including morbid obesity, pickwickian syndrome Physical Exam Vital Signs: Temp Pulse Resp BP Pulse Ox 97.7 F 85 28 H 128/80 H 95 04/01/17 15:46 04/01/17 16:38 04/01/17 16:38 04/01/17 15:46 04/01/17 16:38 Intake & Output 03/31/17 04/01/17 04/02/17 06:59 06:59 06:59 Intake Total 740 1298 592 Balance 740 1298 592 Weight 169.9 kg 163.4 kg General appearance: PRESENT: mild distress Eye exam: PRESENT: PERRLA Respiratory exam: PRESENT: other - Patient on BiPAP machine Cardiovascular exam: PRESENT: irregular rhythm, +S1, +S2 GI/Abdominal exam: PRESENT: other - obese Extremities exam: PRESENT: pedal edema, other - Unna boots in place Neurological exam: PRESENT: alert Results Laboratory Results: 04/01/17 05:45 04/01/17 05:45 04/01/17 04/01/17 05:45 05:45 WBC 5.9 RBC 4.72 Hgb 13.0 L Hct 40.2 MCV 85 MCH 27.5 MCHC 32.3 RDW 18.5 H Plt Count 196 Seg Neutrophils % 71.5 Lymphocytes % 10.6 L Monocytes % 13.4 H Eosinophils % 4.0 Basophils % 0.5 Absolute Neutrophils 4.2 Absolute Lymphocytes 0.6 Absolute Monocytes 0.8 Absolute Eosinophils 0.2 Absolute Basophils 0.0 Sodium 143.2 Potassium 3.6 Chloride 102 Carbon Dioxide 29 Anion Gap 12 BUN 21 H Creatinine 1.41 H Est GFR ( Amer) > 60 Est GFR (Non-Af Amer) 52 L Glucose 110 Calcium 8.9 Total Bilirubin 1.7 H AST 29 ALT 19 L Alkaline Phosphatase 59 Total Protein 7.4 Albumin 3.2 L 03/30/17 03/30/17 03/30/17 17:50 17:50 17:50 Creatine Kinase 74 CK-MB (CK-2) 0.70 Troponin I 0.019 NT-Pro-B Natriuret Pep [id number] H 09/03/30/17 03/31/17 23:48 23:48 06:03 Creatine Kinase 56 103 CK-MB (CK-2) 0.69 Troponin I 0.016 NT-Pro-B Natriuret Pep 03/31/17 06:03 Creatine Kinase CK-MB (CK-2) 0.88 Troponin I 0.031 NT-Pro-B Natriuret Pep Impressions: Chest X-Ray 03/30/17 11:40 IMPRESSION: CARDIAC ENLARGEMENT. VASCULAR CONGESTION. Assessment & Plan - Diagnosis (1) Acute respiratory acidosis Is this a current diagnosis for this admission?: Yes (2) Chronic venous hypertension (idiopathic) with ulcer and inflammation of bilateral lower extremity Is this a current diagnosis for this admission?: Yes (3) Acute diastolic heart failure Is this a current diagnosis for this admission?: Yes (4) Chronic atrial fibrillation Is this a current diagnosis for this admission?: Yes (5) Chronic cutaneous venous stasis ulcer Is this a current diagnosis for this admission?: Yes (6) Hypoalbuminemia Is this a current diagnosis for this admission?: Yes (7) Morbid obesity Is this a current diagnosis for this admission?: Yes (8) Nephrotic syndrome Is this a current diagnosis for this admission?: Yes (9) Paroxysmal atrial fibrillation Is this a current diagnosis for this admission?: Yes (10) Acute kidney injury Is this a current diagnosis for this admission?: Yes (11) Pickwickian syndrome Is this a current diagnosis for this admission?: Yes Plan: The acute respiratory failure is probably from pickwickian syndrome and acute diastolic heart failure
[2017-04-01] MEDS: METOPROLOL SUCCINATE 25 MG TAB.SR.24H PO SCH (21:32)
[2017-04-01] MEDS: SIMVASTATIN 10 MG TABLET PO SCH (21:33)
--- NOTE | 2017-04-01 23:37 | Palliative Consultation Report ---
Consultation From:: HEIDI MIDDLETON Consult Reason: Bilateral lower extremity ulcers - HPI HPI: Palliative care consult visit 04/01/17 12:05- 12;55 PM Appreciate palliative care consult with this 56 year old man who has been admitted with respiratory failure and chronic venous stasis edema and ulcers. Mr. Shipley is aleret and eager to talk. He states he lives alone and hates to have to depend on other people but he loves where he lives and enjoys sitting outside. His respiratory status has improved and he no longer needs his Bipap. He is able to converse without dyspnea. He denies pain and says he is hoping for home health to help him at home with unna boots and personal care. He sufers with CHF, atrial fib, HTN, morbid obesity and chronic venous stasis problems in his lower legs. We discussed his wishes for advance directives. He says he never thought about it but after our discussion he didnt think he would want to be intubated or have CPR. He didnt want feeding tube or other artificial means of staying alive. However, he wants to talk with his mohter about these things efore making a decision. His mother lives in [facility]. He asked me to call her. I did call Mrs. Christy Fulton , patients mother. She was not aware of the fact that he was in hospital again. SHe said she had planned to come to [place] next week to see about him and she will be sure to do that. Mrs. Fulton has been a nurse for 55 years and is very mentally sharp. WE discussed her sons condition and life. I told her I had opened conversation with him about advance directives. SHe said she absolutely did not want to see him intubated or living on machines. She said she will call him and will talk about this with him. Her goal for her visit next week is to be sure she can get him to complete advacne directives as well as name her health care surrogate. Onset: Last week Onset/Duration: Gradual Quality of Pain: Achy Pain Level: Denies Associated Symptoms: Leg swelling, Weakness Exacerbated by: Sitting, Movement Past Medical History(Consults) - General Information Source: Patient, Relative, [facility] Records Home Medications: Aspirin [Aspirin 81 mg Chewable Tablet] 81 mg PO DAILY 03/30/17 Furosemide [Lasix 40 mg Tablet] 80 mg PO Q12 03/30/17 Lisinopril [Prinivil] 20 mg PO DAILY 03/30/17 Metoprolol Succinate [Toprol Xl 25 mg Tab.sr] 25 mg PO QHS 03/30/17 Multivit-Min/FA/Lycopen/Lutein [Centrum Silver Men Tablet] 1 each PO DAILY 03/30 Simvastatin [Zocor 10 mg Tablet] 10 mg PO QHS 03/30/17 Allergies/Adverse Reactions: No Known Allergies Allergy (Verified 07/28/16 09:39) - Social History Lives with: Alone Family History: Reviewed & Not Pertinent Parental Family History Reviewed: No Children Family History Reviewed: No Sibling(s) Family History Reviewed.: No Smoking Status: Former Smoker Frequency of Alcohol Use: None Hx Recreational Drug Use: No Drugs: None - Past Medical History Cardiac Medical History: Reports: Hx Atrial Fibrillation, Hx Congestive Heart Failure, Hx Coronary Artery Disease, Hx Hypercholesterolemia, Hx Hypertension, Hx Peripheral Vascular Disease, Hx Pulmonary Embolism, Other - Chronic diastolic heart failure Pulmonary Medical History: Reports: Hx COPD, Hx Sleep Apnea Renal/ Medical History: Reports: Hx Renal Insufficiency. Denies: Hx Peritoneal Dialysis GI Medical History: Reports: Hx Gastritis, Hx Ulcerative Colitis Musculoskeltal Medical History: Reports Hx Arthritis Psychiatric Medical History: Reports: Hx Depression - Surgical History Past Surgical History: Reports: Hx Tonsillectomy, Other - Tooth extraction Review of systems Constitutional: Weakness, Weight gain Cardiovascular: Chest pain, Edema Respiratory: Cough Geniturinary: No symptoms reported Musculoskeltal: Leg swelling Neurological/Psychological: Weakness Ojective:Exam Vital Signs: Temp Pulse Resp BP Pulse Ox 98.2 F 88 24 H 109/67 98 04/01/17 19:21 04/01/17 19:57 04/01/17 19:57 04/01/17 19:21 04/01/17 19:57 Intake & Output 03/31/17 04/01/17 04/02/17 06:59 06:59 06:59 Intake Total 740 1298 592 Balance 740 1298 592 Weight 169.9 kg 163.4 kg - General General Appearance: Appears well, Anxious Note:: IN bed with legs elevated. Difficulty with movement in ed due to body habitus, but states he is comfortable. Denies pain. Eager to talk, cheerful. No dyspnea noted. Legs wrapped. - Respiratory Respiratory Status: No respiratory distress Breath sounds: Rhonchi - Cardiovascular Rhythm: Regular Pulses: Normal: Radial - Neurological Cognition: Normal, Confused Orientation: AAOx4, Alert Speech: Normal Cranial nerves: Normal Motor exam: Weakness - Psychological Associated symptoms: Normal affect Objective-Diagnostic Laboratory: 04/01/17 05:45 04/01/17 05:45 04/01/17 04/01/17 05:45 05:45 WBC 5.9 RBC 4.72 Hgb 13.0 L Hct 40.2 MCV 85 MCH 27.5 MCHC 32.3 RDW 18.5 H Plt Count 196 Seg Neutrophils % 71.5 Lymphocytes % 10.6 L Monocytes % 13.4 H Eosinophils % 4.0 Basophils % 0.5 Absolute Neutrophils 4.2 Absolute Lymphocytes 0.6 Absolute Monocytes 0.8 Absolute Eosinophils 0.2 Absolute Basophils 0.0 Sodium 143.2 Potassium 3.6 Chloride 102 Carbon Dioxide 29 Anion Gap 12 BUN 21 H Creatinine 1.41 H Est GFR ( Amer) > 60 Est GFR (Non-Af Amer) 52 L Glucose 110 Calcium 8.9 Total Bilirubin 1.7 H AST 29 ALT 19 L Alkaline Phosphatase 59 Total Protein 7.4 Albumin 3.2 L 03/30/17 03/30/17 03/30/17 17:50 17:50 17:50 Creatine Kinase 74 CK-MB (CK-2) 0.70 Troponin I 0.019 NT-Pro-B Natriuret Pep [id number] H 03/30/17 03/30/17 03/31/17 23:48 23:48 06:03 Creatine Kinase 56 103 CK-MB (CK-2) 0.69 Troponin I 0.016 NT-Pro-B Natriuret Pep 03/31/17 06:03 Creatine Kinase CK-MB (CK-2) 0.88 Troponin I 0.031 NT-Pro-B Natriuret Pep Plan and Recommendation Plan and Recommendation: Conversation with patient and his mother regarding code status and advance directives. She said she would call him and discuss but she did want him to request DNR status. Mrs. Fulton is coming to [facility] next week and wants to complete advance directives. I told her I will mail a [place] form for Advance directives and when she gets here if she has questions she can call me. Mr. Shipley is agreeable for home health to follow him at [facility]. I would be happy to follow him with home visits if Dr. Ny requests home palliative care through [facility]. Appreciate opportunity to participate with care. Patient is realistic about his prognsis. - Time Spent with Patient Time spent with patient: 40 to 60 Minutes Time: 60 min
[2017-04-02] MEDS: PIPERACILLIN SODIUM/TAZOBACTAM 3.375 GM in DEXTROSE 5%-WATER 100 ML IV SCH ×4 (03:16→20:37)
[2017-04-02 04:58] LABS: ABSOLUTE EOSINOPHILS # (AUTO) 0.3 10^3/uL (0.0-0.6); ABSOLUTE LYMPHOCYTES (AUTO) 0.6 10^3/uL (0.5-4.7); ABSOLUTE MONOCYTES (AUTO) 0.5 10^3/uL (0.1-1.4); ABSOLUTE NEUT (AUTO) 3.2 10^3/uL (1.7-8.2); BASOPHILS % (AUTO) 0.8 % (0-2); EOSINOPHILS % (AUTO) 7.4 % (0-6); HEMATOCRIT 36.4 % (37.9-51.0); HEMOGLOBIN 11.9 g/dL (13.5-17.0); HGB HCT DIFFERENCE -0.7; LYMPHOCYTES % (AUTO) 11.8 % (13-45); MEAN CORPUSCULAR HEMOGLOBIN 27.2 pg (27.0-33.4); MEAN CORPUSCULAR HGB CONC 32.5 g/dL (32.0-36.0); MEAN CORPUSCULAR VOLUME 84 fl (80-97); MONOCYTES % (AUTO) 11.6 % (3-13); RED BLOOD COUNT 4.35 10^6/uL (4.35-5.55); RED CELL DISTRIBUTION WIDTH 18.1 % (11.5-14.0); SEGMENTED NEUTROPHILS % (AUTO) 68.4 % (42-78); WHITE BLOOD COUNT 4.7 10^3/uL (4.0-10.5)
[2017-04-02 05:25] LABS: ALANINE AMINOTRANSFERASE 19 U/L (21-72); ALBUMIN 2.7 g/dL (3.5-5.0); ALKALINE PHOSPHATASE 46 U/L (38-126); ANION GAP 11 (5-19); ASPARTATE AMINO TRANSFERASE 23 U/L (17-59); BILIRUBIN,DIRECT 1.2 mg/dL (0.0-0.4); BILIRUBIN,TOTAL 1.6 mg/dL (0.2-1.3); BLOOD UREA NITROGEN 20 mg/dL (7-20); CALCIUM 8.7 mg/dL (8.4-10.2); CARBON DIOXIDE 28 mmol/L (22-30); CHLORIDE 102 mmol/L (98-107); CREATININE RESULT 1.53 mg/dL (0.52-1.25); GLUCOSE 117 mg/dL (75-110); POTASSIUM 3.7 mmol/L (3.6-5.0); SODIUM 141.4 mmol/L (137-145); TOTAL PROTEIN 6.6 g/dL (6.3-8.2)
[2017-04-02] MEDS: IPRATROPIUM/ALBUTEROL 0.5-2.5 MG/3 ML AMPUL NEB SCH ×4 (07:49→20:07)
[2017-04-02] MEDS: ASPIRIN 81 MG TABLET, CHEWABLE PO SCH (09:28)
[2017-04-02] MEDS: ENOXAPARIN SODIUM INJ 40 MG/0.4 ML DISP.SYRIN SUBCUT SCH (09:29)
--- NOTE | 2017-04-02 09:58 | PROGRESS NOTE E ---
Progress Note NAME: ELEONORA SHEFFIELD : 1960 AGE: 56Y DATE: 04/02/2017 ROOM: 313 SUBJECTIVE: Patient denies any discomfort. He has got his lower legs with Unna boots. Both feet or toes are warm. There is a little bit more swelling along the right leg compared to the left leg. The boot apparently was placed about 03/31/2017. OBJECTIVE: VITAL SIGNS: Temperature 97.4 Fahrenheit, pulse rate 87, blood pressure 101/63, respirations of 23 per minute with O2 saturation of 95%. Patient on BiPAP at the present time. LABORATORY: The white count this morning is 4.7 with hemoglobin 11.9. Platelets 198,000. BMP is normal. BUN normal at 20, but his creatinine slightly elevated to 1.53. LFTs are within normal limits. Albumin is a little low at 2.7. The ultrasound of venous system done 03/30/2017 was reviewed and there is no evidence of DVT. Superficial veins were not evaluated. IMPRESSION: VENOUS STASIS ULCER OF BOTH LOWER EXTREMITIES. PLAN: Continue with the Unna boot. May need to change the Unna boot in the next 24-48 hours. DICTATING PHYSICIAN: GAYATHRI TURPIN M.D. [id number] PHY#: [id number] ID: [id number] JOB#: [id number] ACCT: [id number] cc: >
--- NOTE | 2017-04-02 17:58 | PDOC PROGRESS REPORT ---
Subjective Progress Note for:: 04/02/17 Subjective:: Patient was seen by the bedside, he is alert and responsive, he was seen today by the palliative care team, he reaffirmed the fact that he wants to be a DNR status, patient overall condition remains poor. The furosemide was added because of depletion of intravascular volume. The wound culture from his leg grew Pseudomonas sensitive to Zosyn the vancomycin was discontinued yesterday, on admission he was empirically treated with vancomycin and Zosyn to achieve a broad spectrum of coverage. Physical Exam Vital Signs: Temp Pulse Resp BP Pulse Ox 97.6 F 60 18 101/62 100 04/02/17 15:54 04/02/17 16:18 04/02/17 16:18 04/02/17 15:54 04/02/17 16:18 Intake & Output 04/01/17 04/02/17 04/03/17 06:59 06:59 06:59 Intake Total 1298 1412 354 Balance 1298 1412 354 Weight 163.4 kg 167.9 kg General appearance: PRESENT: mild distress Eye exam: PRESENT: PERRLA Respiratory exam: PRESENT: tachypnea Cardiovascular exam: PRESENT: +S1, +S2 GI/Abdominal exam: PRESENT: soft Neurological exam: PRESENT: alert Results Laboratory Results: 04/02/17 03:58 04/02/17 03:58 04/02/17 04/02/17 03:58 03:58 WBC 4.7 RBC 4.35 Hgb 11.9 L Hct 36.4 L MCV 84 MCH 27.2 MCHC 32.5 RDW 18.1 H Plt Count 198 Seg Neutrophils % 68.4 Lymphocytes % 11.8 L Monocytes % 11.6 Eosinophils % 7.4 H Basophils % 0.8 Absolute Neutrophils 3.2 Absolute Lymphocytes 0.6 Absolute Monocytes 0.5 Absolute Eosinophils 0.3 Absolute Basophils 0.0 Sodium 141.4 Potassium 3.7 Chloride 102 Carbon Dioxide 28 Anion Gap 11 BUN 20 Creatinine 1.53 H Est GFR ( Amer) 58 L Est GFR (Non-Af Amer) 48 L Glucose 117 H Calcium 8.7 Total Bilirubin 1.6 H AST 23 ALT 19 L Alkaline Phosphatase 46 Total Protein 6.6 Albumin 2.7 L 03/31/17 04:37 Catheterized Urine Urine Culture - Final NO GROWTH 2 DAYS 03/30/17 03/30/17 03/30/17 17:50 17:50 17:50 Creatine Kinase 74 CK-MB (CK-2) 0.70 Troponin I 0.019 NT-Pro-B Natriuret Pep 08545 H 03/30/17 03/30/17 03/31/17 23:48 23:48 06:03 Creatine Kinase 56 103 CK-MB (CK-2) 0.69 Troponin I 0.016 NT-Pro-B Natriuret Pep 03/31/17 06:03 Creatine Kinase CK-MB (CK-2) 0.88 Troponin I 0.031 NT-Pro-B Natriuret Pep Impressions: Chest X-Ray 03/30/17 11:40 IMPRESSION: CARDIAC ENLARGEMENT. VASCULAR CONGESTION. Assessment & Plan - Diagnosis (1) Acute respiratory acidosis Is this a current diagnosis for this admission?: Yes (2) Chronic venous hypertension (idiopathic) with ulcer and inflammation of bilateral lower extremity Is this a current diagnosis for this admission?: Yes (3) Acute diastolic heart failure Is this a current diagnosis for this admission?: Yes (4) Chronic atrial fibrillation Is this a current diagnosis for this admission?: Yes (5) Chronic cutaneous venous stasis ulcer Is this a current diagnosis for this admission?: Yes (6) Hypoalbuminemia Is this a current diagnosis for this admission?: Yes (7) Morbid obesity Is this a current diagnosis for this admission?: Yes (8) Nephrotic syndrome Is this a current diagnosis for this admission?: Yes (9) Paroxysmal atrial fibrillation Is this a current diagnosis for this admission?: Yes (10) Acute kidney injury Is this a current diagnosis for this admission?: Yes (11) Pickwickian syndrome Is this a current diagnosis for this admission?: Yes - Plan Summary Plan Summary: Patient will continue present treatment regimen including antibiotic, noninvasive positive pressure ventilation with BiPAP overall prognosis remains poor
[2017-04-02] MEDS: METOPROLOL SUCCINATE 25 MG TAB.SR.24H PO SCH (22:46)
[2017-04-02] MEDS: SIMVASTATIN 10 MG TABLET PO SCH (22:47)
[2017-04-03] MEDS: PIPERACILLIN SODIUM/TAZOBACTAM 3.375 GM in DEXTROSE 5%-WATER 100 ML IV SCH ×4 (03:50→21:02)
[2017-04-03] MEDS: IPRATROPIUM/ALBUTEROL 0.5-2.5 MG/3 ML AMPUL NEB SCH ×4 (08:20→21:04)
[2017-04-03] MEDS: ENOXAPARIN SODIUM INJ 40 MG/0.4 ML DISP.SYRIN SUBCUT SCH (09:14)
[2017-04-03] MEDS: ASPIRIN 81 MG TABLET, CHEWABLE PO SCH (09:14)
--- NOTE | 2017-04-03 09:58 | PDOC PROGRESS REPORT ---
Subjective Progress Note for:: 04/03/17 Subjective:: Patient is more alert awake oriented Patient's denied any chest pain without any shortness of the breath Patient appetite is still poor Palliative care was consulted Is currently DNR DNI Patient's prognosis is very poor ptIs currently on IV antibiotic Physical Exam Vital Signs: Temp Pulse Resp BP Pulse Ox 97.4 F 89 26 H 108/69 94 04/03/17 05:28 04/03/17 08:20 04/03/17 08:20 04/03/17 05:28 04/03/17 08:20 Intake & Output 04/02/17 04/03/17 04/04/17 06:59 06:59 06:59 Intake Total 1412 1286 Balance 1412 1286 Weight 167.9 kg 165.3 kg General appearance: PRESENT: no acute distress, obese Head exam: PRESENT: normocephalic Eye exam: PRESENT: PERRLA Respiratory exam: PRESENT: decreased breath sounds Cardiovascular exam: PRESENT: +S1, +S2 GI/Abdominal exam: PRESENT: normal bowel sounds, soft Extremities exam: PRESENT: pedal edema Neurological exam: PRESENT: alert, awake, oriented to person Results Laboratory Results: 04/02/17 03:58 04/02/17 03:58 03/31/17 04:37 Catheterized Urine Urine Culture - Final NO GROWTH 2 DAYS 03/30/17 03/30/17 03/30/17 17:50 17:50 17:50 Creatine Kinase 74 CK-MB (CK-2) 0.70 Troponin I 0.019 NT-Pro-B Natriuret Pep 33924 H 03/30/17 03/30/17 03/31/17 23:48 23:48 06:03 Creatine Kinase 56 103 CK-MB (CK-2) 0.69 Troponin I 0.016 NT-Pro-B Natriuret Pep 03/31/17 06:03 Creatine Kinase CK-MB (CK-2) 0.88 Troponin I 0.031 NT-Pro-B Natriuret Pep Impressions: Chest X-Ray 03/30/17 11:40 IMPRESSION: CARDIAC ENLARGEMENT. VASCULAR CONGESTION. Assessment & Plan - Diagnosis (2) Acute diastolic heart failure Is this a current diagnosis for this admission?: Yes (3) Acute respiratory acidosis Is this a current diagnosis for this admission?: Yes (5) Chronic venous hypertension (idiopathic) with ulcer and inflammation of bilateral lower extremity Is this a current diagnosis for this admission?: Yes (6) Pickwickian syndrome Is this a current diagnosis for this admission?: Yes - Time Time Spent with patient: 15-24 minutes Medications reviewed and adjusted accordingly: Yes Within: Other - Inpatient Certification Medical Necessity: Need for IV Antibiotics Post Hospital Care: D/C Director Of Channel Marketing Documentation - Plan Summary Plan Summary: Continues to IV antibiotic continues to current medications Overall prognosis is very poor
--- NOTE | 2017-04-03 19:18 | PROGRESS NOTE E ---
Progress Note NAME: ELEONORA SHEFFIELD : 1960 AGE: 56Y DATE: 04/03/2017 ROOM: 313 SUBJECTIVE: The patient remained afebrile. He still complains of some pains on both lower legs. OBJECTIVE: The swelling appears to have improved with some wrinkling of the skin in both toes of both feet. The Unna boot was replaced by the nurses, and the wounds appear to be stable. Just a little bleeding from the right lower leg area. The bleeding has spontaneously stopped. PLAN: The plan is to continue with the Unna boot dressings every 2 or 3 days. DICTATING PHYSICIAN: GAYATHRI TURPIN M.D. [id number] PHY#: [id number] ID: [id number] JOB#: [id number] ACCT: [id number] cc: >
[2017-04-03] MEDS: SIMVASTATIN 10 MG TABLET PO SCH (21:03)
[2017-04-03] MEDS: METOPROLOL SUCCINATE 25 MG TAB.SR.24H PO SCH (21:03)
[2017-04-04] MEDS: PIPERACILLIN SODIUM/TAZOBACTAM 3.375 GM in DEXTROSE 5%-WATER 100 ML IV SCH ×4 (02:36→21:12)
[2017-04-04] MEDS: IPRATROPIUM/ALBUTEROL 0.5-2.5 MG/3 ML AMPUL NEB SCH ×4 (08:37→20:00)
[2017-04-04] MEDS: ENOXAPARIN SODIUM INJ 40 MG/0.4 ML DISP.SYRIN SUBCUT SCH (10:09)
[2017-04-04] MEDS: ASPIRIN 81 MG TABLET, CHEWABLE PO SCH (10:09)
--- NOTE | 2017-04-04 13:15 | PDOC PROGRESS REPORT ---
Subjective Progress Note for:: 04/04/17 Subjective:: Patient is currently doing fair Patient was complaining some anxiety and asking some anxiety medications Also seen by general surgery Also currently on a BiPAP but alert awake oriented Physical Exam Vital Signs: Temp Pulse Resp BP Pulse Ox 98.4 F 88 20 101/60 96 04/04/17 08:08 04/04/17 12:04 04/04/17 12:04 04/04/17 08:08 04/04/17 12:04 Intake & Output 04/03/17 04/04/17 04/05/17 06:59 06:59 06:59 Intake Total 1286 1166 Balance 1286 1166 Weight 165.3 kg 167.7 kg General appearance: PRESENT: no acute distress, obese, well-developed, well- nourished Head exam: PRESENT: atraumatic, normocephalic Eye exam: PRESENT: conjunctiva pink, EOMI, PERRLA. ABSENT: scleral icterus Ear exam: PRESENT: normal external ear exam Mouth exam: PRESENT: moist, tongue midline Neck exam: PRESENT: full ROM. ABSENT: carotid bruit, JVD, lymphadenopathy, thyromegaly Respiratory exam: PRESENT: decreased breath sounds Cardiovascular exam: PRESENT: RRR. ABSENT: diastolic murmur, rubs, systolic murmur Vascular exam: PRESENT: normal capillary refill GI/Abdominal exam: PRESENT: normal bowel sounds, soft. ABSENT: distended, guarding, mass, organolmegaly, rebound, tenderness Rectal exam: PRESENT: deferred Neurological exam: PRESENT: alert, awake, oriented to person, oriented to place , oriented to time. ABSENT: motor sensory deficit Psychiatric exam: PRESENT: appropriate affect, normal mood. ABSENT: homicidal ideation, suicidal ideation Skin exam: PRESENT: dry, intact, warm. ABSENT: cyanosis, rash Results Laboratory Results: 04/02/17 03:58 04/02/17 03:58 03/30/17 03/30/17 03/30/17 17:50 17:50 17:50 Creatine Kinase 74 CK-MB (CK-2) 0.70 Troponin I 0.019 NT-Pro-B Natriuret Pep 14283 H 03/30/17 03/30/17 03/31/17 23:48 23:48 06:03 Creatine Kinase 56 103 CK-MB (CK-2) 0.69 Troponin I 0.016 NT-Pro-B Natriuret Pep 03/31/17 06:03 Creatine Kinase CK-MB (CK-2) 0.88 Troponin I 0.031 NT-Pro-B Natriuret Pep Impressions: Chest X-Ray 03/30/17 11:40 IMPRESSION: CARDIAC ENLARGEMENT. VASCULAR CONGESTION. Assessment & Plan - Diagnosis (1) A-fib Is this a current diagnosis for this admission?: Yes (2) Acute diastolic heart failure Is this a current diagnosis for this admission?: Yes (3) Acute respiratory acidosis Is this a current diagnosis for this admission?: Yes (5) Chronic venous hypertension (idiopathic) with ulcer and inflammation of bilateral lower extremity Is this a current diagnosis for this admission?: Yes (6) Pickwickian syndrome Is this a current diagnosis for this admission?: Yes - Time Time Spent with patient: 15-24 minutes Medications reviewed and adjusted accordingly: Yes Within: Other - Inpatient Certification Medical Necessity: Need for IV Antibiotics Post Hospital Care: D/C Personal Security Specialist Documentation - Plan Summary Plan Summary: Continues to current IV antibiotic continues to current other medications Start the patient on the BuSpar 5 mg p.o. every 8 for the anxiety
[2017-04-04] MEDS: BUSPIRONE HCL 10 MG TABLET PO SCH ×2 (13:49→22:37)
[2017-04-04] MEDS: SIMVASTATIN 10 MG TABLET PO SCH (22:37)
[2017-04-04] MEDS: METOPROLOL SUCCINATE 25 MG TAB.SR.24H PO SCH (22:37)
[2017-04-05] MEDS: PIPERACILLIN SODIUM/TAZOBACTAM 3.375 GM in DEXTROSE 5%-WATER 100 ML IV SCH ×4 (03:20→21:23)
[2017-04-05] MEDS: BUSPIRONE HCL 10 MG TABLET PO SCH ×3 (06:22→21:23)
[2017-04-05] MEDS: IPRATROPIUM/ALBUTEROL 0.5-2.5 MG/3 ML AMPUL NEB SCH ×4 (08:55→20:04)
[2017-04-05] MEDS: ASPIRIN 81 MG TABLET, CHEWABLE PO SCH (10:55)
[2017-04-05] MEDS: ENOXAPARIN SODIUM INJ 40 MG/0.4 ML DISP.SYRIN SUBCUT SCH (10:55)
--- NOTE | 2017-04-05 21:12 | PDOC PROGRESS REPORT ---
Subjective Progress Note for:: 04/05/17 Subjective:: Patient was seen by the bedside, he was offered the option of physical therapy/ rehabilitation in the [facility] but patient is very reluctant to go to [facility] for rehabilitation. Patient wants to go home but obviously he will not do well. He has Unna boots in place hopefully be discharged home in few days after a few more days of IV antibiotic Physical Exam Vital Signs: Temp Pulse Resp BP Pulse Ox 98.4 F 83 20 113/60 94 04/05/17 19:23 04/05/17 19:23 04/05/17 16:16 04/05/17 19:23 04/05/17 19:23 Intake & Output 04/04/17 04/05/17 04/06/17 06:59 06:59 06:59 Intake Total 1166 1111 1743 Balance 1166 1111 1743 Weight 167.7 kg 167.9 kg General appearance: PRESENT: no acute distress Eye exam: PRESENT: PERRLA Respiratory exam: PRESENT: rales Cardiovascular exam: PRESENT: +S1, +S2 GI/Abdominal exam: PRESENT: distended Neurological exam: PRESENT: alert Results Laboratory Results: 04/02/17 03:58 04/02/17 03:58 03/30/17 03/30/17 03/30/17 17:50 17:50 17:50 Creatine Kinase 74 CK-MB (CK-2) 0.70 Troponin I 0.019 NT-Pro-B Natriuret Pep 31791 H 03/30/17 03/30/17 03/31/17 23:48 23:48 06:03 Creatine Kinase 56 103 CK-MB (CK-2) 0.69 Troponin I 0.016 NT-Pro-B Natriuret Pep 03/31/17 06:03 Creatine Kinase CK-MB (CK-2) 0.88 Troponin I 0.031 NT-Pro-B Natriuret Pep Impressions: Chest X-Ray 03/30/17 11:40 IMPRESSION: CARDIAC ENLARGEMENT. VASCULAR CONGESTION. Assessment & Plan - Diagnosis (1) Acute respiratory acidosis Is this a current diagnosis for this admission?: Yes (2) Chronic venous hypertension (idiopathic) with ulcer and inflammation of bilateral lower extremity Is this a current diagnosis for this admission?: Yes (3) Acute diastolic heart failure Is this a current diagnosis for this admission?: Yes (4) Chronic atrial fibrillation Is this a current diagnosis for this admission?: Yes (5) Chronic cutaneous venous stasis ulcer Is this a current diagnosis for this admission?: Yes (6) Hypoalbuminemia Is this a current diagnosis for this admission?: Yes (7) Morbid obesity Is this a current diagnosis for this admission?: Yes (8) Nephrotic syndrome Is this a current diagnosis for this admission?: Yes (9) Paroxysmal atrial fibrillation Is this a current diagnosis for this admission?: Yes (10) Acute kidney injury Is this a current diagnosis for this admission?: Yes (11) Pickwickian syndrome Is this a current diagnosis for this admission?: Yes - Plan Summary Plan Summary: Start Lasix 40 mg p.o. every 12
[2017-04-05] MEDS: METOPROLOL SUCCINATE 25 MG TAB.SR.24H PO SCH (21:23)
[2017-04-05] MEDS: SIMVASTATIN 10 MG TABLET PO SCH (21:23)
--- NOTE | 2017-04-05 21:45 | Progress Note ---
Provider Note Provider Note: Palliative Care Follow UP visit 04/05/17 1:05- 1:20PM Attempted visit at 10:30 this Am, but patient was asleep with his Bipap in place. Returned to patients room at 1:05. He was awake and talking , but had his lunch tray. I asked him if he was feeling OK, he said he was "OK". I asked when his mother was coming and he said she was not, because he told her not to. He said there was nothing she could do for him and he didnt want her to bother. He said he has to find someone to help him at home besides home health because three times a week will not be enough. He doesnt have any idea who he can get or how he would pay for it. He wants someone to live with him but doesnt know anyone that would help. he said he will not go to live closer to his mother. Mr. Shipley talked a little bit about his mother. He said he is breathing ok and not having a lot of pain. His legs are wrapped and he said they feel better with less edema. He had no evidence respiratory distress while off Bipap. Mr. Shipley asked me to leave so he could eat his lunch. He said he didnt need anything and nothing to talk about. With no needs evident, I left and will check on him in a few days.
[2017-04-05] MEDS ORDERED: FUROSEMIDE 40 MG TABLET PO ONE (22:00)
[2017-04-06] MEDS: PIPERACILLIN SODIUM/TAZOBACTAM 3.375 GM in NORMAL SALINE 100 ML IV SCH ×4 (03:29→21:10)
[2017-04-06] MEDS: BUSPIRONE HCL 10 MG TABLET PO SCH ×3 (06:00→21:10)
[2017-04-06] MEDS: IPRATROPIUM/ALBUTEROL 0.5-2.5 MG/3 ML AMPUL NEB SCH ×4 (07:46→20:04)
[2017-04-06] MEDS: ENOXAPARIN SODIUM INJ 40 MG/0.4 ML DISP.SYRIN SUBCUT SCH (09:54)
[2017-04-06] MEDS: FUROSEMIDE 40 MG TABLET PO SCH ×2 (09:55→17:00)
[2017-04-06] MEDS: ASPIRIN 81 MG TABLET, CHEWABLE PO SCH (09:55)
--- NOTE | 2017-04-06 10:17 | PROGRESS NOTE E ---
Progress Note NAME: ELEONORA SHEFFIELD : 1960 AGE: 56Y DATE: 04/06/2017 ROOM: 313 OBJECTIVE: Both lower leg Unna boots were removed, and the right ulcer on the dorsum of the foot appears to have healed. However, he has still got a shallow ulcer on the right lateral posterior calf roughly measuring about 5 x 5 cm. The one on the left foot ulcer also has dried up and appears to have healed. He has got a thick scab on the left medial aspect of the foot but the ulcer appears to have been healing well. The swelling on the left leg has decreased considerably compared to the right leg. PLAN: I told the nurse to continue placement of Unna boot and this has to be changed every 1 to 2 days. We will follow the patient on a p.r.n. basis. I think with the Unna boot placement it should heal the remaining ulcer on the right lower leg. DICTATING PHYSICIAN: GAYATHRI TURPIN M.D. [id number] PHY#: [id number] ID: [id number] JOB#: [id number] ACCT: [id number] cc: >
[2017-04-06] MEDS: SIMVASTATIN 10 MG TABLET PO SCH (21:11)
[2017-04-06] MEDS: METOPROLOL SUCCINATE 25 MG TAB.SR.24H PO SCH (21:11)
--- NOTE | 2017-04-06 21:25 | PDOC PROGRESS REPORT ---
Subjective Progress Note for:: 04/06/17 Subjective:: Patient was seen by the bedside, his condition is about the same, I discussed with team the idea of rehab is not particularly interested in going to a [facility] for rehabilitation Physical Exam Vital Signs: Temp Pulse Resp BP Pulse Ox 98.3 F 110 H 26 H 115/73 100 04/06/17 20:20 04/06/17 20:20 04/06/17 20:20 04/06/17 20:20 04/06/17 20:20 Intake & Output 04/05/17 04/06/17 04/07/17 06:59 06:59 06:59 Intake Total 1111 2343 1158 Balance 1111 2343 1158 Weight 167.9 kg 167.5 kg General appearance: PRESENT: mild distress, morbidly obese Eye exam: PRESENT: PERRLA Respiratory exam: PRESENT: rhonchi Cardiovascular exam: PRESENT: +S1, +S2 GI/Abdominal exam: PRESENT: soft Neurological exam: PRESENT: alert, CN II-XII grossly intact Results Laboratory Results: 04/02/17 03:58 04/02/17 03:58 03/30/17 03/30/17 03/30/17 17:50 17:50 17:50 Creatine Kinase 74 CK-MB (CK-2) 0.70 Troponin I 0.019 NT-Pro-B Natriuret Pep 58729 H 03/30/17 03/30/17 03/31/17 23:48 23:48 06:03 Creatine Kinase 56 103 CK-MB (CK-2) 0.69 Troponin I 0.016 NT-Pro-B Natriuret Pep 03/31/17 06:03 Creatine Kinase CK-MB (CK-2) 0.88 Troponin I 0.031 NT-Pro-B Natriuret Pep Impressions: Chest X-Ray 03/30/17 11:40 IMPRESSION: CARDIAC ENLARGEMENT. VASCULAR CONGESTION. Assessment & Plan - Diagnosis (1) Acute respiratory acidosis Is this a current diagnosis for this admission?: Yes (2) Chronic venous hypertension (idiopathic) with ulcer and inflammation of bilateral lower extremity Is this a current diagnosis for this admission?: Yes (3) Acute diastolic heart failure Is this a current diagnosis for this admission?: Yes (4) Chronic atrial fibrillation Is this a current diagnosis for this admission?: Yes (5) Chronic cutaneous venous stasis ulcer Is this a current diagnosis for this admission?: Yes (6) Hypoalbuminemia Is this a current diagnosis for this admission?: Yes (7) Morbid obesity Is this a current diagnosis for this admission?: Yes (8) Nephrotic syndrome Is this a current diagnosis for this admission?: Yes (9) Paroxysmal atrial fibrillation Is this a current diagnosis for this admission?: Yes (10) Acute kidney injury Is this a current diagnosis for this admission?: Yes (11) Pickwickian syndrome Is this a current diagnosis for this admission?: Yes - Plan Summary Plan Summary: Continue present treatment
[2017-04-07] MEDS: PIPERACILLIN SODIUM/TAZOBACTAM 3.375 GM in NORMAL SALINE 100 ML IV SCH ×4 (03:55→22:16)
[2017-04-07] MEDS: BUSPIRONE HCL 10 MG TABLET PO SCH ×3 (06:17→22:19)
[2017-04-07] MEDS: IPRATROPIUM/ALBUTEROL 0.5-2.5 MG/3 ML AMPUL NEB SCH ×4 (08:09→20:24)
[2017-04-07 08:57] LABS: ABSOLUTE BASOPHILS # (AUTO) 0.1 10^3/uL (0.0-0.2); ABSOLUTE EOSINOPHILS # (AUTO) 0.3 10^3/uL (0.0-0.6); ABSOLUTE MONOCYTES (AUTO) 0.6 10^3/uL (0.1-1.4); EOSINOPHILS % (AUTO) 5.4 % (0-6); HEMOGLOBIN 11.6 g/dL (13.5-17.0); HGB HCT DIFFERENCE -0.2; LYMPHOCYTES % (AUTO) 20.3 % (13-45); MEAN CORPUSCULAR HEMOGLOBIN 27.9 pg (27.0-33.4); MEAN CORPUSCULAR HGB CONC 33.2 g/dL (32.0-36.0); MEAN CORPUSCULAR VOLUME 84 fl (80-97); MONOCYTES % (AUTO) 12.2 % (3-13); RED BLOOD COUNT 4.17 10^6/uL (4.35-5.55); RED CELL DISTRIBUTION WIDTH 18.3 % (11.5-14.0); SEGMENTED NEUTROPHILS % (AUTO) 61.1 % (42-78); WHITE BLOOD COUNT 4.9 10^3/uL (4.0-10.5)
[2017-04-07 10:21] LABS: ALANINE AMINOTRANSFERASE 21 U/L (21-72); ALKALINE PHOSPHATASE 52 U/L (38-126); ANION GAP 8 (5-19); ASPARTATE AMINO TRANSFERASE 17 U/L (17-59); BILIRUBIN,TOTAL 1.4 mg/dL (0.2-1.3); BLOOD UREA NITROGEN 18 mg/dL (7-20); CARBON DIOXIDE 30 mmol/L (22-30); CHLORIDE 103 mmol/L (98-107); CREATININE RESULT 1.22 mg/dL (0.52-1.25); GLUCOSE 80 mg/dL (75-110); POTASSIUM 4.3 mmol/L (3.6-5.0); SODIUM 140.6 mmol/L (137-145); TOTAL PROTEIN 6.5 g/dL (6.3-8.2)
[2017-04-07] MEDS: FUROSEMIDE 40 MG TABLET PO SCH ×2 (10:23→18:27)
[2017-04-07] MEDS: ASPIRIN 81 MG TABLET, CHEWABLE PO SCH (10:24)
[2017-04-07] MEDS: ENOXAPARIN SODIUM INJ 40 MG/0.4 ML DISP.SYRIN SUBCUT SCH (10:25)
--- NOTE | 2017-04-07 16:51 | PDOC PROGRESS REPORT ---
Subjective Progress Note for:: 04/07/17 Subjective:: Patient was seen by the bedside, there is no new complaints Physical Exam Vital Signs: Temp Pulse Resp BP Pulse Ox 98.2 F 73 20 100/66 96 04/07/17 15:42 04/07/17 15:42 04/07/17 15:42 04/07/17 15:42 04/07/17 15:42 Intake & Output 04/06/17 04/07/17 04/08/17 06:59 06:59 06:59 Intake Total 2343 2919 Balance 2343 2919 Weight 167.5 kg 164.9 kg General appearance: PRESENT: no acute distress Eye exam: PRESENT: PERRLA Respiratory exam: PRESENT: rhonchi Cardiovascular exam: PRESENT: +S1, +S2 GI/Abdominal exam: PRESENT: soft Neurological exam: PRESENT: alert Results Laboratory Results: 04/07/17 08:48 04/07/17 09:43 04/07/17 04/07/17 04/07/17 08:47 08:48 09:43 WBC 4.9 RBC 4.17 L Hgb 11.6 L Hct 35.0 L MCV 84 MCH 27.9 MCHC 33.2 RDW 18.3 H Plt Count 199 Seg Neutrophils % 61.1 Lymphocytes % 20.3 Monocytes % 12.2 Eosinophils % 5.4 Basophils % 1.0 Absolute Neutrophils 3.0 Absolute Lymphocytes 1.0 Absolute Monocytes 0.6 Absolute Eosinophils 0.3 Absolute Basophils 0.1 Sodium Cancelled 140.6 Potassium Cancelled 4.3 Chloride Cancelled 103 Carbon Dioxide Cancelled 30 Anion Gap Cancelled 8 BUN Cancelled 18 Creatinine Cancelled 1.22 Est GFR ( Amer) Cancelled > 60 Est GFR (Non-Af Amer) Cancelled > 60 Glucose Cancelled 80 Calcium Cancelled 9.0 Total Bilirubin Cancelled 1.4 H AST Cancelled 17 ALT Cancelled 21 Alkaline Phosphatase Cancelled 52 Total Protein Cancelled 6.5 Albumin Cancelled 3.0 L 03/30/17 03/30/17 03/30/17 17:50 17:50 17:50 Creatine Kinase 74 CK-MB (CK-2) 0.70 Troponin I 0.019 NT-Pro-B Natriuret Pep 36479 H 03/30/17 03/30/17 03/31/17 23:48 23:48 06:03 Creatine Kinase 56 103 CK-MB (CK-2) 0.69 Troponin I 0.016 NT-Pro-B Natriuret Pep 03/31/17 06:03 Creatine Kinase CK-MB (CK-2) 0.88 Troponin I 0.031 NT-Pro-B Natriuret Pep Impressions: Chest X-Ray 03/30/17 11:40 IMPRESSION: CARDIAC ENLARGEMENT. VASCULAR CONGESTION. Assessment & Plan - Diagnosis (1) Acute respiratory acidosis Is this a current diagnosis for this admission?: Yes (2) Chronic venous hypertension (idiopathic) with ulcer and inflammation of bilateral lower extremity Is this a current diagnosis for this admission?: Yes (3) Acute diastolic heart failure Is this a current diagnosis for this admission?: Yes (4) Chronic atrial fibrillation Is this a current diagnosis for this admission?: Yes (5) Chronic cutaneous venous stasis ulcer Is this a current diagnosis for this admission?: Yes (6) Hypoalbuminemia Is this a current diagnosis for this admission?: Yes (7) Morbid obesity Is this a current diagnosis for this admission?: Yes (8) Nephrotic syndrome Is this a current diagnosis for this admission?: Yes (9) Paroxysmal atrial fibrillation Is this a current diagnosis for this admission?: Yes (10) Acute kidney injury Is this a current diagnosis for this admission?: Yes (11) Pickwickian syndrome Is this a current diagnosis for this admission?: Yes - Plan Summary Plan Summary: Continue treatment
[2017-04-07] MEDS: METOPROLOL SUCCINATE 25 MG TAB.SR.24H PO SCH (22:16)
[2017-04-07] MEDS: SIMVASTATIN 10 MG TABLET PO SCH (22:16)
[2017-04-08] MEDS: PIPERACILLIN SODIUM/TAZOBACTAM 3.375 GM in NORMAL SALINE 100 ML IV SCH ×4 (03:55→21:55)
[2017-04-08] MEDS: BUSPIRONE HCL 10 MG TABLET PO SCH ×3 (06:47→21:55)
[2017-04-08] MEDS: IPRATROPIUM/ALBUTEROL 0.5-2.5 MG/3 ML AMPUL NEB SCH ×4 (08:08→19:56)
[2017-04-08] MEDS: FUROSEMIDE 40 MG TABLET PO SCH ×2 (10:15→17:56)
[2017-04-08] MEDS: ASPIRIN 81 MG TABLET, CHEWABLE PO SCH (10:19)
[2017-04-08] MEDS: ENOXAPARIN SODIUM INJ 40 MG/0.4 ML DISP.SYRIN SUBCUT SCH (10:21)
--- NOTE | 2017-04-08 18:35 | PDOC DISCHARGE SUMMARY ---
General - Admit/Disc Date/PCP Admission Date/Primary Care Provider: 03/30/17 17:19 ZOYA LEONE MD Discharge Date: 04/08/17 - Discharge Diagnosis (1) Acute respiratory acidosis Is this a current diagnosis for this admission?: Yes (2) Chronic venous hypertension (idiopathic) with ulcer and inflammation of bilateral lower extremity Is this a current diagnosis for this admission?: Yes (3) Acute diastolic heart failure Is this a current diagnosis for this admission?: Yes (4) Chronic atrial fibrillation Is this a current diagnosis for this admission?: Yes (5) Chronic cutaneous venous stasis ulcer Is this a current diagnosis for this admission?: Yes (6) Hypoalbuminemia Is this a current diagnosis for this admission?: Yes (7) Morbid obesity Is this a current diagnosis for this admission?: Yes (8) Nephrotic syndrome Is this a current diagnosis for this admission?: Yes (9) Paroxysmal atrial fibrillation Is this a current diagnosis for this admission?: Yes (10) Acute kidney injury Is this a current diagnosis for this admission?: Yes (11) Pickwickian syndrome Is this a current diagnosis for this admission?: Yes (12) Infected stasis ulcer Is this a current diagnosis for this admission?: Yes - Additional Information Resuscitation Status: Full Code Home Medications: Aspirin [Aspirin 81 mg Chewable Tablet] 81 mg PO DAILY 03/30/17 Lisinopril [Prinivil] 20 mg PO DAILY 03/30/17 Metoprolol Succinate [Toprol Xl 25 mg Tab.sr] 25 mg PO QHS 03/30/17 Multivit-Min/FA/Lycopen/Lutein [Centrum Silver Men Tablet] 1 each PO DAILY 03/30 Simvastatin [Zocor 10 mg Tablet] 10 mg PO QHS 03/30/17 Clindamycin HCl 300 mg PO Q8H #21 capsule 04/08/17 Furosemide [Lasix 40 mg Tablet] 40 mg PO BID #60 tablet 04/08/17 Furosemide [Lasix 40 mg Tablet] 40 mg PO Q12 #60 04/08/17 History of Present Illness History of Present Illness: Patient is a 56-year-old male, he has multiple comorbid conditions including chronic diastolic heart failure, nephrotic syndrome, severe morbid obesity, chronic kidney disease stage III, sedentary lifestyle, he came to the emergency room for evaluation of progressive shortness of breath and increase fluid retention. In the emergency room was evaluated, a venous blood gas was done the pH was 7.28, PCO2 59 suggesting respiratory acidosis. Patient is very edematous is extremely obese he also have bilateral lower chronic venous stasis ulcer which has progressively gotten worse. The right leg Ulcer is bigger with more rugged edges compared to the left ulcer it is extremely foul-smelling with very offensive odor. The odor in the room is so offensive that the nursing staff and myself require a facemask to minimize the offensive odor..I discussed advance care plan with him today he wants to be a DNR status. Hospital Course Hospital Course: Patient was admitted for the management of acute respiratory acidosis due to pickwickian syndrome, chronic diastolic heart failure, morbid obesity. He has chronic venous hypertension of both lower extremities with inflammation and infected ulcer. Initially on admission he was empirically treated with Zosyn and vancomycin, the culture from the infected ulcer grew polymicrobial pathogens including Pseudomonas, Klebsiella the vancomycin was discontinued and he was continued on Zosyn. He also required noninvasive positive pressure ventilation with BiPAP machine for the acute respiratory acidosis. Patient was encouraged to go to half-way for rehabilitation but he declined that option he wants to go home. He also had acute kidney injury this was prerenal in etiology, he takes heavy doses of furosemide 80 mg p.o. twice daily this was held on this admission and the kidney function improved. Patient is not making any personal efforts to make himself better, he is very sedentary. A unna santana was applied on this admission by the surgeon Physical Exam Vital Signs: Temp Pulse Resp BP Pulse Ox 98.3 F 70 18 108/78 97 04/08/17 11:31 04/08/17 15:46 04/08/17 15:46 04/08/17 11:31 04/08/17 15:46 Intake & Output 04/07/17 04/08/17 04/09/17 06:59 06:59 06:59 Intake Total 2919 3108 Balance 2919 3108 Weight 164.9 kg 168.6 kg General appearance: PRESENT: no acute distress Eye exam: PRESENT: PERRLA Respiratory exam: PRESENT: clear to auscultation dell Cardiovascular exam: PRESENT: +S1, +S2 GI/Abdominal exam: PRESENT: soft Extremities exam: PRESENT: other - He has Unna boot in place Neurological exam: PRESENT: alert Results Laboratory Results: 04/07/17 08:48 04/07/17 09:43 03/30/17 03/30/17 03/30/17 17:50 17:50 17:50 Creatine Kinase 74 CK-MB (CK-2) 0.70 Troponin I 0.019 NT-Pro-B Natriuret Pep 97671 H 03/30/17 03/30/17 03/31/17 23:48 23:48 06:03 Creatine Kinase 56 103 CK-MB (CK-2) 0.69 Troponin I 0.016 NT-Pro-B Natriuret Pep 03/31/17 06:03 Creatine Kinase CK-MB (CK-2) 0.88 Troponin I 0.031 NT-Pro-B Natriuret Pep Impressions: Chest X-Ray 03/30/17 11:40 IMPRESSION: CARDIAC ENLARGEMENT. VASCULAR CONGESTION.
[2017-04-08] MEDS: METOPROLOL SUCCINATE 25 MG TAB.SR.24H PO SCH (21:54)
[2017-04-08] MEDS: SIMVASTATIN 10 MG TABLET PO SCH (21:55)
[2017-04-09] MEDS: PIPERACILLIN SODIUM/TAZOBACTAM 3.375 GM in NORMAL SALINE 100 ML IV SCH (03:00)
[2017-04-09] MEDS: BUSPIRONE HCL 10 MG TABLET PO SCH (05:40)
[2017-04-09] MEDS: IPRATROPIUM/ALBUTEROL 0.5-2.5 MG/3 ML AMPUL NEB SCH (08:50)
[2017-04-09 10:58] VITALS: BP 107/59
== END 2017-04-09 10:57 | disposition home health service (06) | DRG 640 ==
LOC: ER 10:11 → UNDOADMIN 12:53 → EH 12:53 → 3W 15:00 → EH 15:00 → 3W 17:19
PROVIDERS: ADMIT Internal Medicine; ATTEND Internal Medicine
PROC: 5A09457 Assistance with Respiratory Ventilation, 24-96 Consecutive Hours, Continuous Positive Airway Pressure (ICD-10-PCS; principal; 2017-03-30)
DX: E87.2 Acidosis (principal); I50.33 Acute on chronic diastolic (congestive) heart failure; I87.333 Chronic venous hypertension (idiopathic) with ulcer and inflammation of bilateral lower extremity; L97.919 Non-pressure chronic ulcer of unspecified part of right lower leg with unspecified severity; L97.929 Non-pressure chronic ulcer of unspecified part of left lower leg with unspecified severity; N17.9 Acute kidney failure, unspecified; N04.9 Nephrotic syndrome with unspecified morphologic changes; E66.2 Morbid (severe) obesity with alveolar hypoventilation; Z68.43 Body mass index [BMI] 50.0-59.9, adult; I13.0 Hypertensive heart and chronic kidney disease with heart failure and stage 1 through stage 4 chronic kidney disease, or unspecified chronic kidney disease; B96.1 Klebsiella pneumoniae [K. pneumoniae] as the cause of diseases classified elsewhere; B96.5 Pseudomonas (aeruginosa) (mallei) (pseudomallei) as the cause of diseases classified elsewhere; M19.90 Unspecified osteoarthritis, unspecified site; N18.3 Chronic kidney disease, stage 3 (moderate); J44.9 Chronic obstructive pulmonary disease, unspecified; E78.00 Pure hypercholesterolemia, unspecified; I25.10 Atherosclerotic heart disease of native coronary artery without angina pectoris; I48.2 Chronic atrial fibrillation; F32.9 Major depressive disorder, single episode, unspecified; Z79.82 Long term (current) use of aspirin; Z79.899 Other long term (current) drug therapy; Z86.14 Personal history of Methicillin resistant Staphylococcus aureus infection; Z87.891 Personal history of nicotine dependence
CPT/HCPCS: 36415; 36600; 71010; 80048; 80053; 80061; 80076; 80202; 80307; 81001; 82140; 82150; 82550; 82553; 82803; 83036; 83605; 83690; 83735; 83880; 84100; 84133; 84300; 84439; 84443; 84484; 85025; 85379; 85610; 85730; 87040; 87070; 87077; 87086; 87186; 87205; 93005; 93010; 93971; 94640; 94660; 99285; J1650; J1940; J2543; J3370; J3490; J7060; J7620

== ENCOUNTER 2017-04-16 14:56 | Inpatient (IN) | payer OTHER, MEDICARE ==
[2017-04-16] MEDS ORDERED: ASPIRIN 81 MG TABLET, CHEWABLE PO ONE (15:18)
[2017-04-16] MEDS ORDERED: FUROSEMIDE INJ/PF 40 MG/4 ML SDV IV ONE (15:18)
--- NOTE | 2017-04-16 15:18 | ER Document Report ---
ED Respiratory Problem - General Mode of Arrival: Ambulatory Information source: Patient TRAVEL OUTSIDE OF THE [place] IN LAST 30 DAYS: No - HPI Similar symptoms previously: Yes Recently seen / treated by doctor: Yes <AMARJIT HIGHTOWER - Last Filed: 04/16/17 19:18> <PHILLIP PARTIDA - Last Filed: 04/16/17 19:30> - General Chief Complaint: Shortness Of Breath Stated Complaint: DIFFICULTY BREATHING Time Seen by Provider: 04/16/17 15:09 Notes: Patient is a 56-year-old male that presents to the emergency department today with complaints of shortness of breath. Patient states that he was discharged from this facility approximately 1 week ago. Patient was admitted at that time for bilateral leg wounds and had to be put on BiPAP during his admission. Patient states he feels like he has been short of breath since discharge but he stats the shortness of breath got worse today. Patient denies any chest pain. ( AMARJIT HIGHTOWER) - Related Data Allergies/Adverse Reactions: No Known Allergies Allergy (Verified 07/28/16 09:39) Past Medical History - General Information source: Patient - Social History Smoking Status: Current Every Day Smoker Cigarette use (# per day): Yes Frequency of alcohol use: None Drug Abuse: None Lives with: Family Family History: Reviewed & Not Pertinent - Past Medical History Cardiac Medical History: Reports: Hx Atrial Fibrillation, Hx Congestive Heart Failure, Hx Coronary Artery Disease, Hx Hypercholesterolemia, Hx Hypertension, Hx Peripheral Vascular Disease, Hx Pulmonary Embolism Pulmonary Medical History: Reports: Hx COPD, Hx Sleep Apnea Renal/ Medical History: Reports: Hx Renal Insufficiency GI Medical History: Reports: Hx Gastritis, Hx Ulcerative Colitis Musculoskeltal Medical History: Reports Hx Arthritis Psychiatric Medical History: Reports: Hx Depression Past Surgical History: Reports: Hx Tonsillectomy, Other - Tooth extraction - Immunizations Hx Diphtheria, Pertussis, Tetanus Vaccination: No <AMARJIT HIGHTOWER - Last Filed: 04/16/17 19:18> Review of Systems - Review of Systems Constitutional: No symptoms reported EENT: No symptoms reported Cardiovascular: denies: Chest pain Respiratory: See HPI, Short of breath Gastrointestinal: No symptoms reported Genitourinary: No symptoms reported Male Genitourinary: No symptoms reported Musculoskeletal: No symptoms reported Skin: No symptoms reported Hematologic/Lymphatic: No symptoms reported Neurological/Psychological: No symptoms reported -: Yes All other systems reviewed and negative <AMARJIT HIGHTOWER - Last Filed: 04/16/17 19:18> Physical Exam <AMARJIT HIGHTOWER - Last Filed: 04/16/17 19:18> <PHILLIP PARTIDA - Last Filed: 04/16/17 19:30> - Vital signs Vitals: Resp 24 H 04/16/17 15:07 - Notes Notes: PHYSICAL EXAM GENERAL: Alert, interacts well. In moderate distress secondary to shortness of breath. HEAD: Normocephalic, atraumatic. EYES: Pupils equal, round, and reactive to light. Extraocular movements intact. ENT: Oral mucosa moist, tongue midline. NECK: Full range of motion. Supple. Trachea midline. LUNGS: Tachypneic. Diffuse rales. Moderate respiratory distress. HEART: Tachycardic, irregularly irregular. No murmurs, gallops, or rubs. ABDOMEN: Obese, soft, non-tender. Non-distended. Bowel sounds present in all 4 quadrants. See skin exam. EXTREMITIES: Moves all 4 extremities spontaneously. No cyanosis. Hypertrophic toenails. Chronic lower extremity cellulitis, bandaging over bilateral lower extremities, chronic venous stasis changes to bilateral lower extremities. NEUROLOGICAL: Alert and oriented x3. Normal speech. PSYCH: Normal affect, normal mood. SKIN: Warm, dry, normal turgor. Erythema across abdomen, left side greater than right, erythema extends greater than 12 cm above umbilicus. Erythema spares abdominal folds. Erythema extends below pannus but does not go into legs. Area is warm to the touch. No exudate. (AMARJIT HIGHTOWER) Course - Laboratory Result Diagrams: 04/16/17 15:40 04/16/17 15:40 <AMARJIT HIGHTOWER - Last Filed: 04/16/17 19:18> - Laboratory Result Diagrams: 04/16/17 15:40 04/16/17 15:40 <PHILLIP PARTIDA - Last Filed: 04/16/17 19:30> - Re-evaluation Re-evalutation: 04/16/17 17:51 CBC has mild anemia with hemoglobin 12.9, coags show prolonged INR consistent with using Lovenox, he does have a respiratory acidosis with an ABG pH 7.23 and a PCO2 of 70.1, PO2 318.6, this is on BiPAP with an FiO2 of 80%, CMP shows acute on chronic renal failure with a BUN of 25 and creatinine of 1.85, patient has a proBNP of 25,300, troponin is negative at 0.025, EKG is nonischemic, chest x-ray shows cardiomegaly and vascular congestion. Possible mass at the right medial base. Patient was given Lasix and placed on BiPAP, improved significantly. Discussed with Dr. Edwards who agreed to admit the patient to his service as he is covering for Dr. Ny. (PHILLIP PARTIDA) - Vital Signs Vital signs: Temp Pulse Resp BP Pulse Ox 103 H 22 H 99/70 L 95 04/16/17 18:23 04/16/17 18:23 04/16/17 18:23 04/16/17 18:23 - Laboratory Laboratory results interpreted by me: 04/16/17 04/16/17 04/16/17 15:40 15:40 15:40 Hgb 12.9 L RDW 18.9 H Lymphocytes % 9.8 L PT 20.5 H Carbonic Acid ABG pH ABG pCO2 ABG pO2 ABG HCO3 ABG Total CO2 ABG O2 Saturation Sodium 145.2 H BUN 25 H Creatinine 1.85 H Est GFR ( Amer) 46 L Est GFR (Non-Af Amer) 38 L Total Bilirubin 3.3 H Direct Bilirubin 2.2 H NT-Pro-B Natriuret Pep 04/16/17 04/16/17 15:40 16:00 Hgb RDW Lymphocytes % PT Carbonic Acid 2.11 H ABG pH 7.23 L ABG pCO2 70.1 H* ABG pO2 318.6 H ABG HCO3 28.5 H ABG Total CO2 30.7 H ABG O2 Saturation 99.6 H Sodium BUN Creatinine Est GFR ( Amer) Est GFR (Non-Af Amer) Total Bilirubin Direct Bilirubin NT-Pro-B Natriuret Pep 09795 H - EKG Interpretation by Me Additional EKG results interpreted by me: 04/16/17 17:52 EKG shows atrial fibrillation, tachycardic at a rate of 119, left anterior hemiblock, prolonged QT, poor R-wave progression, scars are noted for anterior, lateral and inferior infarctions, no acute infarction noted per my interpretation. (PHILLIP PARTIDA) Critical Care Note - Critical Care Note Total time excluding time spent on procedures (mins): 35 <PHILLIP PARTIDA - Last Filed: 04/16/17 19:30> Discharge <AMARJIT HIGHTOWER - Last Filed: 04/16/17 19:18> - Discharge Admitting Provider: Yanely Edwards covering Unit Admitted: [facility] <PHILLIP PARTIDA - Last Filed: 04/16/17 19:30> - Discharge Clinical Impression: Morbid obesity, Acute diastolic heart failure, Pickwickian syndrome, Acute respiratory acidosis CHF (congestive heart failure) Qualifiers: Congestive heart failure type: combined Congestive heart failure chronicity: acute on chronic Qualified Code(s): I50.43 - Acute on chronic combined systolic (congestive) and diastolic (congestive) heart failure Acute respiratory failure Qualifiers: Respiratory failure complication: hypoxia and hypercapnia Qualified Code(s): J96.01 - Acute respiratory failure with hypoxia Condition: Fair Disposition: ADMITTED INPATIENT Scribe Attestation: 04/16/17 19:29 I personally performed the services described in the documentation, reviewed and edited the documentation which was dictated to the scribe in my presence, and it accurately records my words and actions. (PHILLIP PARTIDA) Scribe Documentation - Scribe Written by Robert:: Robert Suarez, 04/16/2017 1858 acting as scribe for :: Sherrell <AMARJIT HIGHTOWER - Last Filed: 04/16/17 19:18>
--- NOTE | 2017-04-16 15:50 | RADIOLOGY REPORT (SQ) ---
EXAM DESCRIPTION: CHEST SINGLE VIEW COMPLETED DATE/TIME: 04/16/2017 3:37 pm REASON FOR STUDY: SOB, hypoxia COMPARISON: 03/30/2017 EXAM PARAMETERS: NUMBER OF VIEWS: One view. TECHNIQUE: Single frontal radiographic view of the chest acquired. RADIATION DOSE: NA LIMITATIONS: None. FINDINGS: LUNGS AND PLEURA: Pulmonary vascular congestion. Mild pulmonary edema. Cannot rule out a mass in the medial right lower lobe. This may relate to the contour of the heart. MEDIASTINUM AND HILAR STRUCTURES: No masses. Contour normal. HEART AND VASCULAR STRUCTURES: Cardiomegaly with mild pulmonary edema. BONES: No acute findings. HARDWARE: None in the chest. OTHER: No other significant finding. IMPRESSION: Cardiomegaly with mild pulmonary edema. Cannot rule out a mass in the medial right base . TECHNICAL DOCUMENTATION: JOB ID: [id number]
[2017-04-16 15:55] LABS: ABSOLUTE BASOPHILS # (AUTO) 0.1 10^3/uL (0.0-0.2); ABSOLUTE EOSINOPHILS # (AUTO) 0.2 10^3/uL (0.0-0.6); ABSOLUTE LYMPHOCYTES (AUTO) 0.8 10^3/uL (0.5-4.7); ABSOLUTE MONOCYTES (AUTO) 0.9 10^3/uL (0.1-1.4); ABSOLUTE NEUT (AUTO) 5.8 10^3/uL (1.7-8.2); BASOPHILS % (AUTO) 1.2 % (0-2); EOSINOPHILS % (AUTO) 2.7 % (0-6); HEMATOCRIT 39.5 % (37.9-51.0); HEMOGLOBIN 12.9 g/dL (13.5-17.0); HGB HCT DIFFERENCE -0.8; LYMPHOCYTES % (AUTO) 9.8 % (13-45); MEAN CORPUSCULAR HEMOGLOBIN 27.3 pg (27.0-33.4); MEAN CORPUSCULAR HGB CONC 32.7 g/dL (32.0-36.0); MEAN CORPUSCULAR VOLUME 83 fl (80-97); MONOCYTES % (AUTO) 11.6 % (3-13); RED BLOOD COUNT 4.74 10^6/uL (4.35-5.55); RED CELL DISTRIBUTION WIDTH 18.9 % (11.5-14.0); SEGMENTED NEUTROPHILS % (AUTO) 74.7 % (42-78); WHITE BLOOD COUNT 7.7 10^3/uL (4.0-10.5)
[2017-04-16 16:09] LABS: PROTHROMBIN TIME 20.5 SEC (11.4-15.4)
[2017-04-16 16:17] LABS: ALANINE AMINOTRANSFERASE 23 U/L (21-72); ALBUMIN 3.8 g/dL (3.5-5.0); ALKALINE PHOSPHATASE 60 U/L (38-126); ANION GAP 14 (5-19); ASPARTATE AMINO TRANSFERASE 21 U/L (17-59); BILIRUBIN,DIRECT 2.2 mg/dL (0.0-0.4); BILIRUBIN,TOTAL 3.3 mg/dL (0.2-1.3); BLOOD UREA NITROGEN 25 mg/dL (7-20); CALCIUM 9.5 mg/dL (8.4-10.2); CARBON DIOXIDE 28 mmol/L (22-30); CHLORIDE 103 mmol/L (98-107); CREATINE KINASE 56 U/L (55-170); CREATININE RESULT 1.85 mg/dL (0.52-1.25); GLUCOSE 101 mg/dL (75-110); SODIUM 145.2 mmol/L (137-145); TOTAL PROTEIN 8.2 g/dL (6.3-8.2)
[2017-04-16 16:18] LABS: ARTERIAL BLOOD BASE EXCESS -0.7 mmol/L; ARTERIAL BLOOD O2 SATURATION 99.6 % (94-98)
[2017-04-16 16:27] LABS: CREATINE KINASE MB 0.59 ng/mL (<4.55); TROPONIN I 0.025 ng/mL
--- NOTE | 2017-04-16 19:24 | PDOC H&P ---
History of Present Illness Admission Date/PCP: 04/16/17 17:45 ZOYA LEONE MD Patient complains of: Generalized weakness and difficulty with breathing History of Present Illness: ELEONORA SHEFFIELD is a 56 year old male patient of Dr Leone who was recently discharged from this hospital on 04/08/2017 after refusing transfer to SNF for short term habilitation. Patient presented to the ED via Medic service with reported generalized weakness and increasing difficulty with breathing. Patient reported that he realized that he cannot take care of himself at home due to his current condition. Upon arrival in the ED his initial evaluation did revealed respiratory acidosis with hypercapnia and atrial fibrillation with rapid ventricular rate. Patient has been managed with BiPAP support, IV Lasix and supplemental oxygen. Patient appeared dishevel. His morbidities include Atrial Fibrillation, Congestive Heart Failure, Coronary Artery Disease, Hypertension, Hyperlipidemia, Peripheral Vascular Disease, Pulmonary Embolism, COPD, Obstructive Sleep Apnea, Renal Insufficiency, Gastritis, Ulcerative Colitis, Arthritis, and Depression. Patient has a DNR status which he want to maintain. Past Medical History Cardiac Medical History: Reports: Atrial Fibrillation, Congestive Heart Failure , Coronary Artery Disease, Hyperlipidema, Hypertension, Peripheral Vascular Disease, Pulmonary Embolism Pulmonary Medical History: Reports: Chronic Obstructive Pulmonary Disease (COPD) , Sleep Apnea GI Medical History: Reports: Ulcerative Colitis Musculoskeltal Medical History: Reports: Arthritis Psychiatric Medical History: Reports: Depression Past Surgical History Past Surgical History: Reports: Tonsillectomy, Other - Tooth extraction Social History Smoking Status: Former Smoker Frequency of Alcohol Use: None Hx Recreational Drug Use: No Drugs: None Hx Prescription Drug Abuse: No - Advance Directive Resuscitation Status: Do Not Resuscitate Family History Family History: Reviewed & Not Pertinent Parental Family History Reviewed: Yes Children Family History Reviewed: Yes Sibling(s) Family History Reviewed.: Yes Medication/Allergy Allergies/Adverse Reactions: No Known Allergies Allergy (Verified 07/28/16 09:39) Review of Systems Constitutional: PRESENT: fatigue, weakness Cardiovascular: PRESENT: dyspnea on exertion, edema, palpitations Respiratory: PRESENT: dyspnea Gastrointestinal: ABSENT: abdominal pain, constipation, diarrhea, hematemesis, hematochezia, nausea, vomiting Musculoskeletal: PRESENT: joint swelling, muscle weakness, other - Unna boot dressing to both legs Neurological: PRESENT: weakness - generalized Psychiatric: ABSENT: anxiety, depression, homidical ideation, suicidal ideation Endocrine: ABSENT: cold intolerance, heat intolerance, polyphagia, polyuria Hematologic/Lymphatic: ABSENT: easy bleeding, easy bruising, lymphadenopathy Allergic/Immunologic: ABSENT: seasonal rhinorrhea Physical Exam Vital Signs: Temp Pulse Resp BP Pulse Ox 103 H 22 H 99/70 L 95 04/16/17 18:23 04/16/17 18:23 04/16/17 18:23 04/16/17 18:23 General appearance: PRESENT: disheveled, mild distress, obese Head exam: PRESENT: atraumatic, normocephalic Eye exam: PRESENT: conjunctiva pink, EOMI, PERRLA. ABSENT: scleral icterus Ear exam: ABSENT: bleeding, drainage Mouth exam: PRESENT: moist Teeth exam: PRESENT: poor dentation Neck exam: PRESENT: full ROM. ABSENT: carotid bruit, JVD, lymphadenopathy, thyromegaly Respiratory exam: PRESENT: decreased breath sounds Cardiovascular exam: PRESENT: irregular rhythm, tachycardia. ABSENT: diastolic murmur, rubs, systolic murmur Vascular exam: PRESENT: normal capillary refill. ABSENT: pallor GI/Abdominal exam: PRESENT: normal bowel sounds, soft. ABSENT: distended, guarding, mass, organolmegaly, rebound, tenderness Rectal exam: PRESENT: deferred Extremities exam: PRESENT: pedal edema, other - bilateral unna boot application to legs Neurological exam: PRESENT: awake, oriented to person, oriented to place, oriented to time, oriented to situation, CN II-XII grossly intact, motor sensory deficit Psychiatric exam: PRESENT: appropriate affect, normal mood. ABSENT: homicidal ideation, suicidal ideation Skin exam: PRESENT: abrasion, dry, skin tears, warm, other - open wound on left knee region Results Impressions: Chest X-Ray 04/16/17 15:18 IMPRESSION: Cardiomegaly with mild pulmonary edema. Cannot rule out a mass in the medial right base. Assessment & Plan - Diagnosis (1) Acute on chronic combined systolic (congestive) and diastolic (congestive) heart failure Is this a current diagnosis for this admission?: Yes Plan: See admitting attending physician orders. (2) Chronic atrial fibrillation with rapid ventricular response Is this a current diagnosis for this admission?: Yes Plan: See admitting attending physician orders. (3) Acute and chronic respiratory failure with hypercapnia Is this a current diagnosis for this admission?: Yes Plan: See admitting attending physician orders. (4) Pickwickian syndrome Is this a current diagnosis for this admission?: Yes Plan: See admitting attending physician orders. - Time Time Spent: 50 to 70 Minutes Medications reviewed and adjusted accordingly: Yes Anticipated discharge: SNF Within: Other - Inpatient Certification Based on my medical assessment, after consideration of the patient's comorbidities, presenting symptoms, or acuity I expect that the services needed warrant INPATIENT care.: Yes I certify that my determination is in accordance with my understanding of Medicare's requirements for reasonable and necessary INPATIENT services [42 CFR 412.3e].: Yes Medical Necessity: Need Close Monitoring Due to Risk of Patient Decompensation, Need For Continuous Telemetry Monitoring, Risk of Complication if Not Cared For in Hospital Post Hospital Care: D/C or Transfer Summary - Plan Summary Plan Summary: See admitting attending physician orders.
[2017-04-16] MEDS ORDERED: DOBUTAMINE HCL/D5W 250 ML IV PRN (19:30)
[2017-04-16 20:28] LABS: PARTIAL THROMBOPLASTIN TIME 35.2 SEC (23.5-35.8); PROTHROMBIN TIME 20.1 SEC (11.4-15.4)
[2017-04-16] MEDS ORDERED: DOBUTAMINE HCL/D5W 500 MG/250 ML RTUINJ IV PRN (21:15)
[2017-04-16] MEDS: SIMVASTATIN 10 MG TABLET PO SCH (23:13)
--- NOTE | 2017-04-17 02:07 | EKG REPORT ---
SEVERITY:- ABNORMAL ECG - ATRIAL FIBRILLATION INFERIOR INFARCT, AGE INDETERMINATE LATERAL INFARCT, AGE INDETERMINATE ANTERIOR INFARCT, OLD PROLONGED QT INTERVAL : Confirmed by: Karen Worthy MD 17-Apr-2017 02:06:44
[2017-04-17] MEDS: LANSOPRAZOLE 30 MG TAB.RAP.DR PO SCH (06:12)
[2017-04-17 06:22] LABS: ABSOLUTE BASOPHILS # (AUTO) 0.1 10^3/uL (0.0-0.2); ABSOLUTE EOSINOPHILS # (AUTO) 0.3 10^3/uL (0.0-0.6); ABSOLUTE LYMPHOCYTES (AUTO) 0.6 10^3/uL (0.5-4.7); ABSOLUTE MONOCYTES (AUTO) 0.9 10^3/uL (0.1-1.4); ABSOLUTE NEUT (AUTO) 5.5 10^3/uL (1.7-8.2); BASOPHILS % (AUTO) 0.8 % (0-2); EOSINOPHILS % (AUTO) 4.6 % (0-6); HEMATOCRIT 36.1 % (37.9-51.0); HEMOGLOBIN 11.6 g/dL (13.5-17.0); HGB HCT DIFFERENCE -1.3; LYMPHOCYTES % (AUTO) 8.1 % (13-45); MEAN CORPUSCULAR HGB CONC 32.1 g/dL (32.0-36.0); MEAN CORPUSCULAR VOLUME 84 fl (80-97); MONOCYTES % (AUTO) 12.7 % (3-13); RED BLOOD COUNT 4.29 10^6/uL (4.35-5.55); RED CELL DISTRIBUTION WIDTH 18.6 % (11.5-14.0); SEGMENTED NEUTROPHILS % (AUTO) 73.8 % (42-78); WHITE BLOOD COUNT 7.4 10^3/uL (4.0-10.5)
[2017-04-17 06:32] LABS: ALANINE AMINOTRANSFERASE 26 U/L (21-72); ALKALINE PHOSPHATASE 46 U/L (38-126); ANION GAP 10 (5-19); ASPARTATE AMINO TRANSFERASE 17 U/L (17-59); BILIRUBIN,DIRECT 1.7 mg/dL (0.0-0.4); BILIRUBIN,TOTAL 2.3 mg/dL (0.2-1.3); BLOOD UREA NITROGEN 27 mg/dL (7-20); CALCIUM 8.9 mg/dL (8.4-10.2); CARBON DIOXIDE 27 mmol/L (22-30); CHLORIDE 105 mmol/L (98-107); CREATININE RESULT 1.99 mg/dL (0.52-1.25); GLUCOSE 86 mg/dL (75-110); POTASSIUM 4.1 mmol/L (3.6-5.0); SODIUM 142.2 mmol/L (137-145); TOTAL PROTEIN 6.8 g/dL (6.3-8.2)
[2017-04-17] MEDS ORDERED: DOBUTAMINE HCL/D5W 500 MG/250 ML RTUINJ IV ONE (08:34)
[2017-04-17 09:31] LABS: ARTERIAL BLOOD BASE EXCESS 1.1 mmol/L; ARTERIAL BLOOD O2 SATURATION 88.7 % (94-98)
[2017-04-17] MEDS: FUROSEMIDE INJ/PF 40 MG/4 ML SDV IV SCH (10:28)
[2017-04-17] MEDS: METOPROLOL SUCCINATE 25 MG TAB.SR.24H PO SCH (10:28)
[2017-04-17] MEDS: ASPIRIN 81 MG TABLET, ENT COATED PO SCH (10:28)
[2017-04-17] MEDS: ENOXAPARIN SODIUM INJ 40 MG/0.4 ML DISP.SYRIN SUBCUT SCH (10:37)
--- NOTE | 2017-04-17 19:18 | PDOC PROGRESS REPORT ---
Subjective Progress Note for:: 04/17/17 Subjective:: Patient is more lucid and cooperative with care. Remain on BiPAP support and currently Dobutamine infusion. His other anti failure medication on hold due to low blood pressure. No chest pain. Tolerated some amount of oral fluid today. Physical Exam Vital Signs: Temp Pulse Resp BP Pulse Ox 98.6 F 83 22 H 101/51 L 96 04/17/17 16:28 04/17/17 16:28 04/17/17 16:28 04/17/17 16:28 04/17/17 16:28 Intake & Output 04/16/17 04/17/17 04/18/17 06:59 06:59 06:59 Intake Total 477 0 Balance 477 0 Weight 157.2 kg General appearance: PRESENT: disheveled, mild distress - on BiPAP support, morbidly obese Head exam: PRESENT: atraumatic, normocephalic Eye exam: PRESENT: conjunctiva pink, EOMI, PERRLA. ABSENT: scleral icterus Mouth exam: PRESENT: moist Respiratory exam: PRESENT: decreased breath sounds Cardiovascular exam: PRESENT: irregular rhythm, +S1, +S2. ABSENT: diastolic murmur, rubs, systolic murmur GI/Abdominal exam: PRESENT: normal bowel sounds, soft. ABSENT: distended, guarding, mass, organolmegaly, rebound, tenderness Extremities exam: PRESENT: pedal edema - with unna boot for his venous stasis ulcer management Neurological exam: PRESENT: alert, awake, oriented to person, oriented to place Psychiatric exam: PRESENT: appropriate affect, normal mood. ABSENT: homicidal ideation, suicidal ideation Skin exam: PRESENT: dry, rash, skin tears, warm Results Laboratory Results: 04/17/17 06:09 04/17/17 06:09 04/17/17 04/17/17 04/17/17 06:09 06:09 09:05 WBC 7.4 RBC 4.29 L Hgb 11.6 L Hct 36.1 L MCV 84 MCH 27.0 MCHC 32.1 RDW 18.6 H Plt Count 180 Seg Neutrophils % 73.8 Lymphocytes % 8.1 L Monocytes % 12.7 Eosinophils % 4.6 Basophils % 0.8 Absolute Neutrophils 5.5 Absolute Lymphocytes 0.6 Absolute Monocytes 0.9 Absolute Eosinophils 0.3 Absolute Basophils 0.1 Carbonic Acid 1.94 H HCO3/H2CO3 Ratio 15:1 ABG pH 7.28 L ABG pCO2 64.4 H ABG pO2 63.4 L ABG HCO3 29.2 H ABG O2 Saturation 88.7 L ABG Base Excess 1.1 FiO2 40% Sodium 142.2 Potassium 4.1 Chloride 105 Carbon Dioxide 27 Anion Gap 10 BUN 27 H Creatinine 1.99 H Est GFR ( Amer) 43 L Est GFR (Non-Af Amer) 35 L Glucose 86 Calcium 8.9 Total Bilirubin 2.3 H AST 17 ALT 26 Alkaline Phosphatase 46 Total Protein 6.8 Albumin 3.0 L Impressions: Chest X-Ray 04/16/17 15:18 IMPRESSION: Cardiomegaly with mild pulmonary edema. Cannot rule out a mass in the medial right base. Assessment & Plan - Diagnosis (1) Acute on chronic combined systolic (congestive) and diastolic (congestive) heart failure Is this a current diagnosis for this admission?: Yes (2) Chronic atrial fibrillation with rapid ventricular response Is this a current diagnosis for this admission?: Yes (3) Acute and chronic respiratory failure with hypercapnia Is this a current diagnosis for this admission?: Yes (4) Pickwickian syndrome Is this a current diagnosis for this admission?: Yes - Time Time Spent with patient: 35 or more minutes Medications reviewed and adjusted accordingly: Yes Anticipated discharge: SNF Within: Other - Inpatient Certification Based on my medical assessment, after consideration of the patient's comorbidities, presenting symptoms, or acuity I expect that the services needed warrant INPATIENT care.: Yes I certify that my determination is in accordance with my understanding of Medicare's requirements for reasonable and necessary INPATIENT services [42 CFR 412.3e].: Yes Medical Necessity: Need Close Monitoring Due to Risk of Patient Decompensation, Need For Continuous Telemetry Monitoring, Need for Nebulizer Therapy and Monitoring of Response, Risk of Complication if Not Cared For in Hospital - Plan Summary Plan Summary: Increase Dobutamine to 5mg/kg/min. Continue all other current medication management. I will request cardiology consultation with Dr. Ferrari for further input.
[2017-04-17 20:22] LABS: ARTERIAL BLOOD BASE EXCESS 1.2 mmol/L; ARTERIAL BLOOD O2 SATURATION 94.1 % (94-98)
[2017-04-17] MEDS: SIMVASTATIN 10 MG TABLET PO SCH (21:48)
[2017-04-18] MEDS: LANSOPRAZOLE 30 MG TAB.RAP.DR PO SCH (05:11)
[2017-04-18 06:02] LABS: ABSOLUTE EOSINOPHILS # (AUTO) 0.8 10^3/uL (0.0-0.6); ABSOLUTE LYMPHOCYTES (AUTO) 0.6 10^3/uL (0.5-4.7); ABSOLUTE MONOCYTES (AUTO) 0.7 10^3/uL (0.1-1.4); ABSOLUTE NEUT (AUTO) 5.2 10^3/uL (1.7-8.2); BASOPHILS % (AUTO) 0.6 % (0-2); HEMATOCRIT 34.6 % (37.9-51.0); HEMOGLOBIN 11.2 g/dL (13.5-17.0); LYMPHOCYTES % (AUTO) 8.6 % (13-45); MEAN CORPUSCULAR HEMOGLOBIN 26.9 pg (27.0-33.4); MEAN CORPUSCULAR HGB CONC 32.4 g/dL (32.0-36.0); MEAN CORPUSCULAR VOLUME 83 fl (80-97); MONOCYTES % (AUTO) 9.9 % (3-13); RED BLOOD COUNT 4.16 10^6/uL (4.35-5.55); RED CELL DISTRIBUTION WIDTH 18.7 % (11.5-14.0); SEGMENTED NEUTROPHILS % (AUTO) 69.9 % (42-78); WHITE BLOOD COUNT 7.4 10^3/uL (4.0-10.5)
[2017-04-18 06:18] LABS: ALANINE AMINOTRANSFERASE 27 U/L (21-72); ALBUMIN 2.6 g/dL (3.5-5.0); ALKALINE PHOSPHATASE 45 U/L (38-126); ANION GAP 11 (5-19); ASPARTATE AMINO TRANSFERASE 28 U/L (17-59); BILIRUBIN,DIRECT 1.5 mg/dL (0.0-0.4); BILIRUBIN,TOTAL 2.1 mg/dL (0.2-1.3); BLOOD UREA NITROGEN 29 mg/dL (7-20); CALCIUM 8.6 mg/dL (8.4-10.2); CARBON DIOXIDE 29 mmol/L (22-30); CHLORIDE 105 mmol/L (98-107); CREATININE RESULT 1.92 mg/dL (0.52-1.25); GLUCOSE 98 mg/dL (75-110); SODIUM 144.6 mmol/L (137-145); TOTAL PROTEIN 6.1 g/dL (6.3-8.2)
[2017-04-18] MEDS: METOPROLOL SUCCINATE 25 MG TAB.SR.24H PO SCH (09:59)
[2017-04-18] MEDS: ENOXAPARIN SODIUM INJ 40 MG/0.4 ML DISP.SYRIN SUBCUT SCH (09:59)
[2017-04-18] MEDS: ASPIRIN 81 MG TABLET, ENT COATED PO SCH (09:59)
[2017-04-18] MEDS: FUROSEMIDE INJ/PF 40 MG/4 ML SDV IV SCH (09:59)
[2017-04-18] MEDS: IPRATROPIUM/ALBUTEROL 0.5-2.5 MG/3 ML AMPUL NEB PRN (10:11)
--- NOTE | 2017-04-18 18:18 | PDOC CONSULTATION ---
Consultation Consult Date: 04/18/17 Attending physician:: EUNICE RODRIGUEZ Consult reason:: Dyspnea History of Present Illness Admission Date/PCP: 04/16/17 19:24 ZOYA LEONE MD Patient complains of: Shortness of breath History of Present Illness: ELEONORA SHEFFIELD is a 56 year old male patient of Dr Leone who was recently discharged from this hospital on 04/08/2017 after refusing transfer to SNF for short term habilitation. Patient presented to the ED via Medic service with reported generalized weakness and increasing difficulty with breathing. Patient reported that he realized that he cannot take care of himself at home due to his current condition. Upon arrival in the ED his initial evaluation did revealed respiratory acidosis with hypercapnia and atrial fibrillation with rapid ventricular rate. Patient has been managed with BiPAP support, IV Lasix and supplemental oxygen. Patient appeared dishevel. His morbidities include Atrial Fibrillation, Congestive Heart Failure, Coronary Artery Disease, Hypertension, Hyperlipidemia, Peripheral Vascular Disease, Pulmonary Embolism, COPD, Obstructive Sleep Apnea, Renal Insufficiency, Gastritis, Ulcerative Colitis, Arthritis, and Depression. Patient has a DNR status which he want to maintain. Patient was interviewed. On questioning he denied any chest pain. His main symptoms are shortness of breath, general fatigue, tiredness, marked weakness and also chronic problem with his lower extremities. Past Medical History Cardiac Medical History: Reports: Atrial Fibrillation, Congestive Heart Failure , Coronary Artery Disease, Hyperlipidema, Hypertension, Peripheral Vascular Disease, Pulmonary Embolism Pulmonary Medical History: Reports: Chronic Obstructive Pulmonary Disease (COPD) , Sleep Apnea GI Medical History: Reports: Ulcerative Colitis Musculoskeltal Medical History: Reports: Arthritis Psychiatric Medical History: Reports: Depression Past Surgical History Past Surgical History: Reports: Tonsillectomy, Other - Tooth extraction Social History Lives with: Family Smoking Status: Former Smoker Frequency of Alcohol Use: None Hx Recreational Drug Use: No Drugs: None Hx Prescription Drug Abuse: No - Advance Directive Resuscitation Status: Do Not Resuscitate Family History Family History: Hypertension Parental Family History Reviewed: Yes Children Family History Reviewed: Yes Sibling(s) Family History Reviewed.: Yes Medication/Allergy Home Medications: Furosemide [Lasix 40 mg Tablet] 40 mg PO Q4 04/18/17 Lisinopril [Prinivil] 20 mg PO DAILY 04/18/17 Simvastatin [Zocor 10 mg Tablet] 10 mg PO QPM 04/18/17 Allergies/Adverse Reactions: No Known Allergies Allergy (Verified 07/28/16 09:39) Review of Systems Review of Systems: Please see history of present illness and past medical history as wall. Constitutional: No fever or chills reported. Head : No recent chronic headaches, recent head injury. Eyes: No recent eye pain, diplopia, redness, discharge, acute visual changes. Ears: No recent chronic ear pain, acute hearing loss, ear discharge. Oral cavity: No recent ulcerations, bleeding, oral cavity discomfort. Neck: No recent acute neck pain reported. Hematologic: No recent easy bruising or bleeding or hematologic malignancy reported. Lymphatic: No recent lymphatic malignancy, chronic lymphadenopathy reported yet Cardiovascular system review: See history of present illness. Respiratory system review: Recent cough with some wheezing but no hemoptysis, blood clots in the lungs reported. Increased shortness of breath on exertion Gastrointestinal system review: Negative for any recent acute or chronic abdominal pain, hematemesis, melena, recent change in bowel habits. Decreased appetite reported. Genitourinary system review: No recent acute or chronic hematuria, flank pain, UTI etc. reported. Skin system review: Some itching reported, ulceration reported in lower extremity, chronic dry skin reported. Neurologic: No prior history of strokes, mini strokes, seizure disorder. Psychologic: No history of major psychosis or major depression reported. Musculoskeletal: Minor aches and pains reported. No acute joint swelling reported. Endocrine: No recent polyuria, polydipsia, recent heat or cold intolerance. Physical Exam Vital Signs: Temp Pulse Resp BP Pulse Ox 98.4 F 109 H 31 H 119/63 97 04/18/17 15:17 04/18/17 16:00 04/18/17 16:00 04/18/17 16:00 04/18/17 16:00 Intake & Output 04/17/17 04/18/17 04/19/17 06:59 06:59 06:59 Intake Total 477 981 Balance 477 981 Weight 157.2 kg 160.7 kg Exam: GENERAL: well-nourished and in no acute distress. Alert and oriented x3 HEAD: Atraumatic, normocephalic. EYES: Pupils equal round and reactive to light, extraocular movements intact, sclera anicteric, conjunctiva are normal. ENT: TMs normal, nares patent, oropharynx clear without exudates. Moist mucous membranes. No oral ulcerations or bleeding gums noted NECK: supple without lymphadenopathy. Trachea is central. No cervical or axillary lymphadenopathy noted. Carotids are 2+, JVD 10 cm LUNGS: Respiration seems nonlabored, no significant accessory muscle action noted. Bilateral fine crackles and wheezing noted. CHEST: Palpation of the chest wall shows no significant chest wall tenderness. No other significant abnormalities noted. 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 ABDOMEN: Soft, no significant tenderness appreciated, normoactive bowel sounds. No guarding, no rebound. No rigidity noted . No masses appreciated. EXTREMITIES: Pedal pulses are 1-2+, no calf tenderness noted. No clubbing or cyanosis. Chronic 2+ + pedal edema noted NEUROLOGICAL: Focused neurological exam showed no significant neurologic deficit. Normal speech, no focal weakness appreciated. PSYCH: Normal mood, normal affect. Judgment and insight within normal limits. SKIN: No significant ecchymosis, significant chronic dermatitis rash, ecchymosis and some superficial ulcerations noted. MUSCULOSKELETAL EXAM: No significant joint swelling noted. Results Laboratory Results: 04/18/17 05:36 04/18/17 05:36 04/17/17 04/18/17 04/18/17 20:00 05:36 05:36 WBC 7.4 RBC 4.16 L Hgb 11.2 L Hct 34.6 L MCV 83 MCH 26.9 L MCHC 32.4 RDW 18.7 H Plt Count 181 Seg Neutrophils % 69.9 Lymphocytes % 8.6 L Monocytes % 9.9 Eosinophils % 11.0 H Basophils % 0.6 Absolute Neutrophils 5.2 Absolute Lymphocytes 0.6 Absolute Monocytes 0.7 Absolute Eosinophils 0.8 H Absolute Basophils 0.0 Carbonic Acid 1.89 H HCO3/H2CO3 Ratio 15:1 ABG pH 7.28 L ABG pCO2 62.9 H ABG pO2 80.0 ABG HCO3 29.2 H ABG O2 Saturation 94.1 ABG Base Excess 1.2 FiO2 50% Sodium 144.6 Potassium 4.0 Chloride 105 Carbon Dioxide 29 Anion Gap 11 BUN 29 H Creatinine 1.92 H Est GFR ( Amer) 44 L Est GFR (Non-Af Amer) 37 L Glucose 98 Calcium 8.6 Total Bilirubin 2.1 H AST 28 ALT 27 Alkaline Phosphatase 45 Total Protein 6.1 L Albumin 2.6 L 04/17/17 01:05 Nasophary (Mrsa Only) MRSA Surveillance Culture - Final NO MRSA RECOVERED EKG Comments: Atrial fibrillation with rapid ventricular response. QS complex inferior leads and lateral anterior precordial lead consistent with prior inferior and anterior ID. No acute ST segment changes noted. Impressions: Chest X-Ray 04/16/17 15:18 IMPRESSION: Cardiomegaly with mild pulmonary edema. Cannot rule out a mass in the medial right base. Assessment & Plan - Diagnosis (1) Chronic atrial fibrillation with rapid ventricular response Is this a current diagnosis for this admission?: Yes (2) Acute and chronic respiratory failure with hypercapnia Is this a current diagnosis for this admission?: Yes (3) CHF (congestive heart failure) Qualifiers: Congestive heart failure type: combined Congestive heart failure chronicity : acute on chronic Qualified Code(s): I50.43 - Acute on chronic combined systolic (congestive) and diastolic (congestive) heart failure (4) Super obesity Is this a current diagnosis for this admission?: Yes - Notes Notes: Atrial fibrillation with rapid ventricular response: Patient has chronic A. fib. Recommend rate control and chronic anticoagulation. Acute on chronic respiratory failure with hypercapnia and also hypoxemia. Continue with noninvasive positive pressure ventilation and also oxygen supplementation. Pulmonary consultation will be helpful. CHF: Patient seems to have predominantly right-sided CHF along with some element of diastolic dysfunction. Continue diuretic therapy. Super obesity: Patient will benefit from weight loss. Patient has multiple other medical problems which are being addressed by filter tip catcher. Patient's overall prognosis is poor. Will continue to follow patient. Will try to optimize medical management for underlying cardiovascular status. - Time Time Spent: 30 to 50 Minutes - CODE STATUS : was discussed, patient remains DO NOT RESUSCITATE. Surrogate decision-maker unchanged. Multiple medical problems were addressed. More than 50% of the time spent coordinating care, discussing management plans with involved caregivers. Management plans discussed with involved personnels. Medical decision making was of moderate to high complexity, patient's has multiple comorbidities. Medications reviewed and adjusted accordingly: Yes
[2017-04-18] MEDS ORDERED: ONDANSETRON 4 MG TAB.RAPDIS PO PRN (20:06)
[2017-04-18] MEDS: SIMVASTATIN 10 MG TABLET PO SCH (21:35)
[2017-04-19] MEDS: LANSOPRAZOLE 30 MG TAB.RAP.DR PO SCH (05:52)
--- NOTE | 2017-04-19 09:38 | PDOC CONSULTATION ---
Consultation Consult Date: 04/19/17 Attending physician:: EUNICE RODRIGUEZ Consult reason:: Lower extremity wounds History of Present Illness Admission Date/PCP: 04/16/17 19:24 ZOYA LEONE MD History of Present Illness: ELEONORA SHEFFIELD is a 56 year old male patient of Dr Leone who was recently discharged from this hospital on 04/08/2017 after refusing transfer to SNF for short term habilitation. Patient presented to the ED via Medic service with reported generalized weakness and increasing difficulty with breathing. Patient reported that he realized that he cannot take care of himself at home due to his current condition. Upon arrival in the ED his initial evaluation did revealed respiratory acidosis with hypercapnia and atrial fibrillation with rapid ventricular rate. Patient has been managed with BiPAP support, IV Lasix and supplemental oxygen. Patient appeared dishevel. His morbidities include Atrial Fibrillation, Congestive Heart Failure, Coronary Artery Disease, Hypertension, Hyperlipidemia, Peripheral Vascular Disease, Pulmonary Embolism, COPD, Obstructive Sleep Apnea, Renal Insufficiency, Gastritis, Ulcerative Colitis, Arthritis, and Depression. Patient has a DNR status which he want to maintain. Patient was interviewed. On questioning he denied any chest pain. His main symptoms are shortness of breath, general fatigue, tiredness, marked weakness and also chronic problem with his lower extremities. Surgeon's addendum and has been treated with Unna boot therapy on the lower extremities for extended periods of time. Past Medical History Cardiac Medical History: Reports: Atrial Fibrillation, Congestive Heart Failure , Coronary Artery Disease, Hyperlipidema, Hypertension, Peripheral Vascular Disease, Pulmonary Embolism Pulmonary Medical History: Reports: Chronic Obstructive Pulmonary Disease (COPD) , Sleep Apnea GI Medical History: Reports: Ulcerative Colitis Musculoskeltal Medical History: Reports: Arthritis Psychiatric Medical History: Reports: Depression Past Surgical History Past Surgical History: Reports: Tonsillectomy, Other - Tooth extraction Social History Lives with: Family Smoking Status: Former Smoker Frequency of Alcohol Use: None Hx Recreational Drug Use: No Drugs: None Hx Prescription Drug Abuse: No - Advance Directive Resuscitation Status: Do Not Resuscitate Family History Family History: Hypertension Parental Family History Reviewed: Yes Children Family History Reviewed: Yes Sibling(s) Family History Reviewed.: Yes Medication/Allergy Home Medications: Furosemide [Lasix 40 mg Tablet] 40 mg PO Q4 04/18/17 Lisinopril [Prinivil] 20 mg PO DAILY 04/18/17 Simvastatin [Zocor 10 mg Tablet] 10 mg PO QPM 04/18/17 Allergies/Adverse Reactions: No Known Allergies Allergy (Verified 07/28/16 09:39) Physical Exam Vital Signs: Temp Pulse Resp BP Pulse Ox 99.3 F 54 L 32 H 103/64 97 04/19/17 07:18 04/19/17 07:18 04/19/17 08:49 04/19/17 07:18 04/19/17 08:49 Intake & Output 04/18/17 04/19/17 04/20/17 06:59 06:59 06:59 Intake Total 981 2140 Balance 981 2140 Weight 160.7 kg 162.1 kg General appearance: PRESENT: other - Currently under CPAP therapy Extremities exam: PRESENT: other - Lower extremities with advanced lichenification of the distal legs, ankles and feet. No open wounds on the left lower extremity. The right lower extremity has an open wound approximately 4 x 4.5 cm, chronic granulating with a biofilm; some flimsy exfoliating skin debrided with 4 x 4 Results Laboratory Results: 04/18/17 05:36 04/18/17 05:36 04/17/17 01:05 Nasophary (Mrsa Only) MRSA Surveillance Culture - Final NO MRSA RECOVERED Impressions: Chest X-Ray 04/16/17 15:18 IMPRESSION: Cardiomegaly with mild pulmonary edema. Cannot rule out a mass in the medial right base. Assessment & Plan - Diagnosis (1) Chronic venous hypertension (idiopathic) with ulcer and inflammation of bilateral lower extremity Is this a current diagnosis for this admission?: Yes Plan: Assessment: Patient currently has no active ulcers on the left lower extremity. Lichenification is dry; orders for Eucerin cream made The right lower extremity does have an open wound, clean in no need of operative debridement. Will initiate Unna boot therapy, and leave on for 5 days.
[2017-04-19] MEDS: ENOXAPARIN SODIUM INJ 40 MG/0.4 ML DISP.SYRIN SUBCUT SCH (11:32)
[2017-04-19] MEDS: ASPIRIN 81 MG TABLET, ENT COATED PO SCH (11:37)
[2017-04-19] MEDS: FUROSEMIDE INJ/PF 40 MG/4 ML SDV IV SCH (11:39)
[2017-04-19] MEDS: IPRATROPIUM/ALBUTEROL 0.5-2.5 MG/3 ML AMPUL NEB PRN (11:41)
[2017-04-19] MEDS: METOPROLOL SUCCINATE 25 MG TAB.SR.24H PO SCH (15:30)
--- NOTE | 2017-04-19 18:30 | PDOC PROGRESS REPORT ---
Subjective Progress Note for:: 04/19/17 Subjective:: Patient was admitted over the weekend, he was seen by the bedside.He is open to the idea of prison placement Physical Exam Vital Signs: Temp Pulse Resp BP Pulse Ox 98.9 F 75 31 H 101/62 99 04/19/17 16:16 04/19/17 16:16 04/19/17 16:16 04/19/17 16:16 04/19/17 16:22 Intake & Output 04/18/17 04/19/17 04/20/17 06:59 06:59 06:59 Intake Total 981 2140 240 Balance 981 2140 240 Weight 160.7 kg 162.1 kg General appearance: PRESENT: morbidly obese Head exam: PRESENT: atraumatic Eye exam: PRESENT: PERRLA, scleral icterus Ear exam: PRESENT: normal external ear exam Mouth exam: PRESENT: moist, tongue midline Neck exam: PRESENT: full ROM Cardiovascular exam: PRESENT: RRR, +S1, +S2 Vascular exam: PRESENT: normal capillary refill GI/Abdominal exam: PRESENT: normal bowel sounds, soft Rectal exam: PRESENT: deferred Extremities exam: PRESENT: other - There is severe inflammation and scaliness of the lower extremity , Neurological exam: PRESENT: alert Psychiatric exam: PRESENT: appropriate affect, normal mood Skin exam: PRESENT: dry, intact, warm Results Laboratory Results: 04/18/17 05:36 04/18/17 05:36 Impressions: Chest X-Ray 04/16/17 15:18 IMPRESSION: Cardiomegaly with mild pulmonary edema. Cannot rule out a mass in the medial right base. Assessment & Plan - Diagnosis (1) Chronic respiratory acidosis Is this a current diagnosis for this admission?: Yes Plan: The ABG on FiO2 50%, pH is 7.28, PCO2 62.9 bicarbonate 29.2 PO2 80, this is consistent with chronic respiratory acidosis, for the degree of PCO2 the bicarbonate should be 26 in acute acidosis state but on this ABG is 29 suggesting chronic respiratory acidosis (2) Chronic atrial fibrillation with rapid ventricular response Is this a current diagnosis for this admission?: Yes Plan: Start Eliquis continue her treatment (3) Acute diastolic heart failure Is this a current diagnosis for this admission?: Yes (4) Chronic venous hypertension (idiopathic) with inflammation of bilateral lower extremity Is this a current diagnosis for this admission?: Yes Plan: The a Unna boot to be applied (5) Morbid obesity Is this a current diagnosis for this admission?: Yes (6) Pickwickian syndrome Is this a current diagnosis for this admission?: Yes
[2017-04-19] MEDS ORDERED: APIXABAN 2.5 MG TABLET PO ONE (19:00)
--- NOTE | 2017-04-19 19:56 | PDOC PROGRESS REPORT ---
Subjective Progress Note for:: 04/19/17 Subjective:: Patient seems to be doing better with gradual improvement. Pt is denying any chest arm or neck discomfort. Patient denying any PND, orthopnea. Patient denied any sustained palpitations, dizziness, syncope, near syncope. Patient denying any fever chills. Patient denying any other significant discomfort. Patient is maintaining atrial fibrillation with controlled ventricular response Review of systems: Rest review of systems negative. Medications: Medications have been reviewed. Physical Exam Vital Signs: Temp Pulse Resp BP Pulse Ox 98.9 F 75 31 H 101/62 99 04/19/17 16:16 04/19/17 16:16 04/19/17 16:16 04/19/17 16:16 04/19/17 16:22 Intake & Output 04/18/17 04/19/17 04/20/17 06:59 06:59 06:59 Intake Total 981 2140 440 Balance 981 2140 440 Weight 160.7 kg 162.1 kg Exam: GENERAL: well-nourished and in no acute distress. Alert and oriented x3 HEAD: Atraumatic, normocephalic. EYES: Pupils equal round and reactive to light, extraocular movements intact, sclera anicteric, conjunctiva are normal. ENT: TMs normal, nares patent, oropharynx clear without exudates. Moist mucous membranes. No oral ulcerations or bleeding gums noted NECK: supple without lymphadenopathy. Trachea is central. No cervical or axillary lymphadenopathy noted. Carotids are 2+, JVD 10 cm LUNGS: Respiration seems nonlabored, no significant accessory muscle action noted. Bilateral fine crackles and wheezing noted. CHEST: Palpation of the chest wall shows no significant chest wall tenderness. No other significant abnormalities noted. 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 ABDOMEN: Soft, no significant tenderness appreciated, normoactive bowel sounds. No guarding, no rebound. No rigidity noted . No masses appreciated. EXTREMITIES: Pedal pulses are 1-2+, no calf tenderness noted. No clubbing or cyanosis. Chronic 2+ + pedal edema noted NEUROLOGICAL: Focused neurological exam showed no significant neurologic deficit. Normal speech, no focal weakness appreciated. PSYCH: Normal mood, normal affect. Judgment and insight within normal limits. SKIN: No significant ecchymosis, significant chronic dermatitis rash, ecchymosis and some superficial ulcerations noted. MUSCULOSKELETAL EXAM: No significant joint swelling noted. Results Laboratory Results: 04/18/17 05:36 04/18/17 05:36 Impressions: Chest X-Ray 04/16/17 15:18 IMPRESSION: Cardiomegaly with mild pulmonary edema. Cannot rule out a mass in the medial right base. Assessment & Plan - Diagnosis (1) Chronic atrial fibrillation with rapid ventricular response Is this a current diagnosis for this admission?: Yes (2) Acute and chronic respiratory failure with hypercapnia Is this a current diagnosis for this admission?: Yes (3) CHF (congestive heart failure) Qualifiers: Congestive heart failure type: combined Congestive heart failure chronicity : acute on chronic Qualified Code(s): I50.43 - Acute on chronic combined systolic (congestive) and diastolic (congestive) heart failure (4) Super obesity Is this a current diagnosis for this admission?: Yes - Notes Notes: Atrial fibrillation with rapid ventricular response: Patient has chronic A. fib. Recommend rate control and chronic anticoagulation. Heart rate seems reasonably well controlled. Acute on chronic respiratory failure with hypercapnia and also hypoxemia. Continue with noninvasive positive pressure ventilation and also oxygen supplementation. Pulmonary consultation will be helpful. CHF: Patient seems to have predominantly right-sided CHF along with some element of diastolic dysfunction. Continue diuretic therapy. Super obesity: Patient will benefit from weight loss. Chronic pedal edema and chronic dermatitis along with some ulcerations. Patient evaluated by surgeon and adequate management plans instituted. Patient has multiple other medical problems which are being addressed by counter help. Patient's overall prognosis is poor. Will continue to follow patient. Will try to optimize medical management for underlying cardiovascular status. - Time Time with patient: 15-25 minutes - CODE STATUS : was discussed, patient remains DO NOT RESUSCITATE. Surrogate decision-maker unchanged. Multiple medical problems were addressed. More than 50% of the time spent coordinating care, discussing management plans with involved caregivers. Management plans discussed with involved personnels. Medical decision making was of moderate to high complexity, patient's has multiple comorbidities. Medications reviewed and adjusted accordingly: Yes
[2017-04-19] MEDS ORDERED: INFLUENZA ADLT QUAD (36MOS+) 2017-18 VAC 0.5 ML SYR IM PRN (20:20)
[2017-04-19] MEDS: SIMVASTATIN 10 MG TABLET PO SCH (21:50)
[2017-04-20] MEDS: LANSOPRAZOLE 30 MG TAB.RAP.DR PO SCH (06:36)
[2017-04-20] MEDS: IPRATROPIUM/ALBUTEROL 0.5-2.5 MG/3 ML AMPUL NEB PRN ×2 (08:35→20:10)
[2017-04-20] MEDS: METOPROLOL SUCCINATE 25 MG TAB.SR.24H PO SCH (09:40)
[2017-04-20] MEDS: APIXABAN 2.5 MG TABLET PO SCH ×2 (09:40→18:22)
[2017-04-20] MEDS: ASPIRIN 81 MG TABLET, ENT COATED PO SCH (09:40)
[2017-04-20] MEDS: MINERAL OIL/PETROLATUM,WHITE CREAM 114 GM TP SCH (09:44)
--- NOTE | 2017-04-20 21:11 | PDOC PROGRESS REPORT ---
Subjective Progress Note for:: 04/20/17 Subjective:: Patient was taken off dobutamine and IV furosemide, seen by the bedside Physical Exam Vital Signs: Temp Pulse Resp BP Pulse Ox 99.2 F 88 28 H 96/66 L 98 04/20/17 20:24 04/20/17 20:25 04/20/17 20:25 04/20/17 20:24 04/20/17 20:25 Intake & Output 04/19/17 04/20/17 04/21/17 06:59 06:59 06:59 Intake Total 2140 1070 577 Balance 2140 1070 577 Weight 162.1 kg 163 kg General appearance: PRESENT: mild distress Eye exam: PRESENT: PERRLA Respiratory exam: PRESENT: decreased breath sounds Cardiovascular exam: PRESENT: +S1, +S2 GI/Abdominal exam: PRESENT: soft Results Laboratory Results: 04/18/17 05:36 04/18/17 05:36 Impressions: Chest X-Ray 04/16/17 15:18 IMPRESSION: Cardiomegaly with mild pulmonary edema. Cannot rule out a mass in the medial right base. Assessment & Plan - Diagnosis (1) Chronic respiratory acidosis Is this a current diagnosis for this admission?: Yes (2) Chronic atrial fibrillation with rapid ventricular response Is this a current diagnosis for this admission?: Yes (3) Acute diastolic heart failure Is this a current diagnosis for this admission?: Yes (4) Chronic venous hypertension (idiopathic) with inflammation of bilateral lower extremity Is this a current diagnosis for this admission?: Yes (5) Morbid obesity Is this a current diagnosis for this admission?: Yes (6) Pickwickian syndrome Is this a current diagnosis for this admission?: Yes - Plan Summary Plan Summary: Continue treatment
[2017-04-20] MEDS: SIMVASTATIN 10 MG TABLET PO SCH (23:14)
[2017-04-21] MEDS: LANSOPRAZOLE 30 MG TAB.RAP.DR PO SCH (05:59)
[2017-04-21] MEDS: IPRATROPIUM/ALBUTEROL 0.5-2.5 MG/3 ML AMPUL NEB PRN ×2 (06:05→19:55)
[2017-04-21] MEDS: ASPIRIN 81 MG TABLET, ENT COATED PO SCH (09:57)
[2017-04-21] MEDS: APIXABAN 2.5 MG TABLET PO SCH ×2 (09:57→18:04)
[2017-04-21] MEDS: METOPROLOL SUCCINATE 25 MG TAB.SR.24H PO SCH (09:59)
[2017-04-21] MEDS: MINERAL OIL/PETROLATUM,WHITE CREAM 114 GM TP SCH (10:00)
--- NOTE | 2017-04-21 17:50 | PDOC PROGRESS REPORT ---
Subjective Progress Note for:: 04/21/17 Subjective:: Patient's condition is about the same Physical Exam Vital Signs: Temp Pulse Resp BP Pulse Ox 98.9 F 138 H 34 H 90/58 L 90 L 04/21/17 15:33 04/21/17 15:33 04/21/17 15:33 04/21/17 15:33 04/21/17 15:33 Intake & Output 04/20/17 04/21/17 04/22/17 06:59 06:59 06:59 Intake Total 1070 799 480 Balance 1070 799 480 Weight 163 kg 171 kg General appearance: PRESENT: mild distress Eye exam: PRESENT: PERRLA Respiratory exam: PRESENT: decreased breath sounds Cardiovascular exam: PRESENT: +S1, +S2 GI/Abdominal exam: PRESENT: soft Results Laboratory Results: 04/18/17 05:36 04/18/17 05:36 Impressions: Chest X-Ray 04/16/17 15:18 IMPRESSION: Cardiomegaly with mild pulmonary edema. Cannot rule out a mass in the medial right base. Assessment & Plan - Diagnosis (1) Chronic respiratory acidosis Is this a current diagnosis for this admission?: Yes (2) Chronic atrial fibrillation with rapid ventricular response Is this a current diagnosis for this admission?: Yes (3) Acute diastolic heart failure Is this a current diagnosis for this admission?: Yes (4) Chronic venous hypertension (idiopathic) with inflammation of bilateral lower extremity Is this a current diagnosis for this admission?: Yes (5) Morbid obesity Is this a current diagnosis for this admission?: Yes (6) Pickwickian syndrome Is this a current diagnosis for this admission?: Yes
[2017-04-21 18:32] LABS: ABSOLUTE BASOPHILS # (AUTO) 0.1 10^3/uL (0.0-0.2); ABSOLUTE LYMPHOCYTES (AUTO) 0.8 10^3/uL (0.5-4.7); ABSOLUTE MONOCYTES (AUTO) 0.9 10^3/uL (0.1-1.4); ABSOLUTE NEUT (AUTO) 5.5 10^3/uL (1.7-8.2); BASOPHILS % (AUTO) 0.7 % (0-2); EOSINOPHILS % (AUTO) 11.8 % (0-6); HEMATOCRIT 36.2 % (37.9-51.0); HEMOGLOBIN 11.7 g/dL (13.5-17.0); HGB HCT DIFFERENCE -1.1; LYMPHOCYTES % (AUTO) 9.5 % (13-45); MEAN CORPUSCULAR HEMOGLOBIN 27.2 pg (27.0-33.4); MEAN CORPUSCULAR HGB CONC 32.4 g/dL (32.0-36.0); MEAN CORPUSCULAR VOLUME 84 fl (80-97); MONOCYTES % (AUTO) 10.7 % (3-13); RED BLOOD COUNT 4.33 10^6/uL (4.35-5.55); RED CELL DISTRIBUTION WIDTH 18.9 % (11.5-14.0); SEGMENTED NEUTROPHILS % (AUTO) 67.3 % (42-78); WHITE BLOOD COUNT 8.1 10^3/uL (4.0-10.5)
[2017-04-21 18:51] LABS: ALANINE AMINOTRANSFERASE 32 U/L (21-72); ALBUMIN 2.9 g/dL (3.5-5.0); ALKALINE PHOSPHATASE 59 U/L (38-126); ANION GAP 10 (5-19); ASPARTATE AMINO TRANSFERASE 20 U/L (17-59); BILIRUBIN,DIRECT 1.6 mg/dL (0.0-0.4); BLOOD UREA NITROGEN 32 mg/dL (7-20); CALCIUM 8.6 mg/dL (8.4-10.2); CARBON DIOXIDE 28 mmol/L (22-30); CHLORIDE 103 mmol/L (98-107); CREATININE RESULT 1.38 mg/dL (0.52-1.25); GLUCOSE 101 mg/dL (75-110); POTASSIUM 4.9 mmol/L (3.6-5.0); SODIUM 140.9 mmol/L (137-145); TOTAL PROTEIN 6.6 g/dL (6.3-8.2)
--- NOTE | 2017-04-21 20:07 | PDOC PROGRESS REPORT ---
Subjective Progress Note for:: 04/20/17 Subjective:: Patient seems to be doing better with gradual improvement. Pt is denying any chest arm or neck discomfort. Patient denying any PND, orthopnea. Patient denied any sustained palpitations, dizziness, syncope, near syncope. Patient denying any fever chills. Patient denying any other significant discomfort. Patient however noted to be somewhat lethargic today but easily wakes up and answers to questions. Patient is maintaining atrial fibrillation with controlled ventricular response Review of systems: Rest review of systems negative. Medications: Medications have been reviewed. Physical Exam Vital Signs: Temp Pulse Resp BP Pulse Ox 97.5 F 143 H 32 H 94/71 L 100 04/20/17 15:34 04/20/17 15:34 04/20/17 15:34 04/20/17 15:34 04/20/17 15:34 Intake & Output 04/19/17 04/20/17 04/21/17 06:59 06:59 06:59 Intake Total 2140 1070 577 Balance 2140 1070 577 Weight 162.1 kg 163 kg Exam: GENERAL: well-nourished and in no acute distress. Noted to be more lethargic and somewhat more somnolent. HEAD: Atraumatic, normocephalic. EYES: Pupils equal round and reactive to light, extraocular movements intact, sclera anicteric, conjunctiva are normal. ENT: TMs normal, nares patent, oropharynx clear without exudates. Moist mucous membranes. No oral ulcerations or bleeding gums noted NECK: supple without lymphadenopathy. Trachea is central. No cervical or axillary lymphadenopathy noted. Carotids are 2+, JVD WNL LUNGS: Respiration seems nonlabored, no significant accessory muscle action noted. Breath sounds clear to auscultation bilaterally and equal noted. No wheezes rales or rhonchi noted. No significant dullness noted on percussion. CHEST: Palpation of the chest wall shows no significant chest wall tenderness. No other significant abnormalities noted. 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 ABDOMEN: Soft, no significant tenderness appreciated, normoactive bowel sounds. No guarding, no rebound. No rigidity noted . No masses appreciated. EXTREMITIES: Pedal pulses are 1-2+, no calf tenderness noted. No clubbing or cyanosis. 1+ pedal edema noted NEUROLOGICAL: Focused neurological exam showed no significant neurologic deficit. Normal speech, no focal weakness appreciated. PSYCH: Normal mood, normal affect. Judgment and insight within normal limits. SKIN: Marked ecchymosis and superficial ulceration both lower legs. Now covered with Bandages MUSCULOSKELETAL EXAM: No significant joint swelling noted. Results Laboratory Results: 04/18/17 05:36 04/18/17 05:36 Impressions: Chest X-Ray 04/16/17 15:18 IMPRESSION: Cardiomegaly with mild pulmonary edema. Cannot rule out a mass in the medial right base. Assessment & Plan - Diagnosis (1) Chronic atrial fibrillation with rapid ventricular response Is this a current diagnosis for this admission?: Yes (2) Acute and chronic respiratory failure with hypercapnia Is this a current diagnosis for this admission?: Yes (3) CHF (congestive heart failure) Qualifiers: Congestive heart failure type: combined Congestive heart failure chronicity : acute on chronic Qualified Code(s): I50.43 - Acute on chronic combined systolic (congestive) and diastolic (congestive) heart failure (4) Super obesity Is this a current diagnosis for this admission?: Yes - Notes Notes: Atrial fibrillation with rapid ventricular response: Patient has chronic A. fib. Recommend rate control and chronic anticoagulation. Heart rate seems reasonably well controlled. Rhythm strips were reviewed. Acute on chronic respiratory failure with hypercapnia and also hypoxemia. Continue with noninvasive positive pressure ventilation and also oxygen supplementation. Oxygenation is being well maintained. CHF: Patient seems to have predominantly right-sided CHF along with some element of diastolic dysfunction. Continue diuretic therapy. Super obesity: Patient will benefit from weight loss. Chronic pedal edema and chronic dermatitis along with some ulcerations. Patient evaluated by surgeon and adequate management plans instituted. Patient has Unna boot on right leg and some dressing on the left leg. 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 Patient's overall prognosis is poor. Will continue to follow patient. Will try to optimize medical management for underlying cardiovascular status. - Time Time with patient: 15-25 minutes - CODE STATUS : was discussed, patient remains DO NOT RESUSCITATE. Surrogate decision-maker unchanged. Multiple medical problems were addressed. More than 50% of the time spent coordinating care, discussing management plans with involved caregivers. Management plans discussed with involved personnels. Medical decision making was of moderate to high complexity, patient's has multiple comorbidities. Medications reviewed and adjusted accordingly: Yes
[2017-04-21] MEDS: SIMVASTATIN 10 MG TABLET PO SCH (22:08)
[2017-04-22] MEDS: LANSOPRAZOLE 30 MG TAB.RAP.DR PO SCH (05:47)
[2017-04-22 06:09] LABS: ALANINE AMINOTRANSFERASE 31 U/L (21-72); ALBUMIN 2.7 g/dL (3.5-5.0); ALKALINE PHOSPHATASE 59 U/L (38-126); ANION GAP 10 (5-19); ASPARTATE AMINO TRANSFERASE 20 U/L (17-59); BILIRUBIN,DIRECT 1.4 mg/dL (0.0-0.4); BILIRUBIN,TOTAL 1.7 mg/dL (0.2-1.3); BLOOD UREA NITROGEN 33 mg/dL (7-20); CALCIUM 8.4 mg/dL (8.4-10.2); CARBON DIOXIDE 28 mmol/L (22-30); CHLORIDE 104 mmol/L (98-107); CREATININE RESULT 1.39 mg/dL (0.52-1.25); GLUCOSE 91 mg/dL (75-110); SODIUM 141.8 mmol/L (137-145); TOTAL PROTEIN 6.3 g/dL (6.3-8.2)
[2017-04-22 06:11] LABS: ABSOLUTE BASOPHILS # (AUTO) 0.1 10^3/uL (0.0-0.2); ABSOLUTE LYMPHOCYTES (AUTO) 0.6 10^3/uL (0.5-4.7); ABSOLUTE MONOCYTES (AUTO) 0.8 10^3/uL (0.1-1.4); ABSOLUTE NEUT (AUTO) 4.7 10^3/uL (1.7-8.2); BASOPHILS % (AUTO) 0.7 % (0-2); HEMATOCRIT 33.6 % (37.9-51.0); HEMOGLOBIN 10.9 g/dL (13.5-17.0); HGB HCT DIFFERENCE -0.9; LYMPHOCYTES % (AUTO) 8.6 % (13-45); MEAN CORPUSCULAR HEMOGLOBIN 27.1 pg (27.0-33.4); MEAN CORPUSCULAR HGB CONC 32.5 g/dL (32.0-36.0); MEAN CORPUSCULAR VOLUME 83 fl (80-97); MONOCYTES % (AUTO) 11.5 % (3-13); RED BLOOD COUNT 4.04 10^6/uL (4.35-5.55); RED CELL DISTRIBUTION WIDTH 18.6 % (11.5-14.0); SEGMENTED NEUTROPHILS % (AUTO) 65.2 % (42-78); WHITE BLOOD COUNT 7.2 10^3/uL (4.0-10.5)
--- NOTE | 2017-04-22 09:29 | PDOC PROGRESS REPORT ---
Subjective Progress Note for:: 04/21/17 Subjective:: Patient seems to be doing better with gradual improvement. Pt is denying any chest arm or neck discomfort. Patient denying any PND, orthopnea. Patient denied any sustained palpitations, dizziness, syncope, near syncope. Patient denying any fever chills. Patient denying any other significant discomfort. Patient however noted to be somewhat lethargic today but easily wakes up and answers to questions. Patient is maintaining atrial fibrillation with controlled ventricular response. Review of systems: Rest review of systems negative. Medications: Medications have been reviewed. Physical Exam Vital Signs: Temp Pulse Resp BP Pulse Ox 98.9 F 138 H 34 H 90/58 L 90 L 04/21/17 15:33 04/21/17 15:33 04/21/17 15:33 04/21/17 15:33 04/21/17 15:33 Intake & Output 04/20/17 04/21/17 04/22/17 06:59 06:59 06:59 Intake Total 1070 799 660 Balance 1070 799 660 Weight 163 kg 171 kg Exam: GENERAL: well-nourished and in no acute distress. Alert and oriented x3 HEAD: Atraumatic, normocephalic. EYES: Pupils equal round and reactive to light, extraocular movements intact, sclera anicteric, conjunctiva are normal. ENT: TMs normal, nares patent, oropharynx clear without exudates. Moist mucous membranes. No oral ulcerations or bleeding gums noted NECK: supple without lymphadenopathy. Trachea is central. No cervical or axillary lymphadenopathy noted. Carotids are 2+, JVD WNL LUNGS: Respiration seems nonlabored, no significant accessory muscle action noted. Bibasilar fine crackles are noted.. No wheezes rales or rhonchi noted. No significant dullness noted on percussion. CHEST: Palpation of the chest wall shows no significant chest wall tenderness. No other significant abnormalities noted. 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 ABDOMEN: Soft, no significant tenderness appreciated, normoactive bowel sounds. No guarding, no rebound. No rigidity noted . No masses appreciated. EXTREMITIES: Pedal pulses are 1-2+, no calf tenderness noted. No clubbing or cyanosis. 1+ pedal edema noted. Right foot in Unna boot. Left foot just bandaged. Previous exam had shown significant ecchymosis and superficial ulcerations. NEUROLOGICAL: Focused neurological exam showed no significant neurologic deficit. Normal speech, no focal weakness appreciated. PSYCH: Normal mood, normal affect. Judgment and insight within normal limits. SKIN: No significant ecchymosis, rash, ulcerations or signs of pruritus noted. MUSCULOSKELETAL EXAM: No significant joint swelling noted. Results Laboratory Results: 04/21/17 18:25 04/21/17 18:25 04/21/17 04/21/17 18:25 18:25 WBC 8.1 RBC 4.33 L Hgb 11.7 L Hct 36.2 L MCV 84 MCH 27.2 MCHC 32.4 RDW 18.9 H Plt Count 207 Seg Neutrophils % 67.3 Lymphocytes % 9.5 L Monocytes % 10.7 Eosinophils % 11.8 H Basophils % 0.7 Absolute Neutrophils 5.5 Absolute Lymphocytes 0.8 Absolute Monocytes 0.9 Absolute Eosinophils 1.0 H Absolute Basophils 0.1 Sodium 140.9 Potassium 4.9 Chloride 103 Carbon Dioxide 28 Anion Gap 10 BUN 32 H Creatinine 1.38 H Est GFR ( Amer) > 60 Est GFR (Non-Af Amer) 54 L Glucose 101 Calcium 8.6 Total Bilirubin 2.0 H AST 20 ALT 32 Alkaline Phosphatase 59 Total Protein 6.6 Albumin 2.9 L Impressions: Chest X-Ray 04/16/17 15:18 IMPRESSION: Cardiomegaly with mild pulmonary edema. Cannot rule out a mass in the medial right base. Assessment & Plan - Diagnosis (1) Chronic atrial fibrillation with rapid ventricular response Is this a current diagnosis for this admission?: Yes (2) Acute and chronic respiratory failure with hypercapnia Is this a current diagnosis for this admission?: Yes (3) CHF (congestive heart failure) Qualifiers: Congestive heart failure type: combined Congestive heart failure chronicity : acute on chronic Qualified Code(s): I50.43 - Acute on chronic combined systolic (congestive) and diastolic (congestive) heart failure (4) Super obesity Is this a current diagnosis for this admission?: Yes - Notes Notes: Atrial fibrillation with rapid ventricular response: Patient has chronic A. fib. Continue with current strategy of rate control and chronic anticoagulation. Heart rate seems reasonably well controlled. Rhythm strips were reviewed. Acute on chronic respiratory failure with hypercapnia and also hypoxemia. Continue with noninvasive positive pressure ventilation and also oxygen supplementation. Oxygenation is being well maintained. CHF: Patient seems to have predominantly right-sided CHF along with some element of diastolic dysfunction. Continue diuretic therapy. Super obesity: Patient will benefit from weight loss. Chronic pedal edema and chronic dermatitis along with some ulcerations. Patient evaluated by surgeon and adequate management plans instituted. Patient has Unna boot on right leg and some dressing on the left leg. Patient has multiple other medical problems which are being addressed by seasonal clerk. Patient's overall prognosis is guarded, secondary to poor general status, pulmonary hypertension. Will continue to follow patient. Will try to optimize medical management for underlying cardiovascular status. - Time Time with patient: 15-25 minutes - CODE STATUS : was discussed, patient remains DO NOT RESUSCITATE. Surrogate decision-maker unchanged. Multiple medical problems were addressed. More than 50% of the time spent coordinating care, discussing management plans with involved caregivers. Management plans discussed with involved personnels. Medical decision making was of moderate to high complexity, patient's has multiple comorbidities. Medications reviewed and adjusted accordingly: Yes
[2017-04-22] MEDS: METOPROLOL SUCCINATE 25 MG TAB.SR.24H PO SCH (09:31)
[2017-04-22] MEDS: ASPIRIN 81 MG TABLET, ENT COATED PO SCH (09:32)
[2017-04-22] MEDS: APIXABAN 2.5 MG TABLET PO SCH ×2 (09:32→18:03)
[2017-04-22] MEDS: MINERAL OIL/PETROLATUM,WHITE CREAM 114 GM TP SCH (09:33)
[2017-04-22] MEDS: IPRATROPIUM/ALBUTEROL 0.5-2.5 MG/3 ML AMPUL NEB PRN ×2 (11:52→20:27)
--- NOTE | 2017-04-22 14:19 | PDOC CONSULTATION ---
Consultation Consult Date: 04/22/17 Attending physician:: ZOYA LEONE Consult reason:: acute/chronic respiratory failure History of Present Illness Admission Date/PCP: 04/16/17 19:24 ZOYA LEONE MD History of Present Illness: ELEONORA SHEFFIELD is a 56 year old male patient Readmitted for congestive heart failure chronic, respiratory failure patient is demonstrated a chronic over acute hypercapnic/hypoxemic respiratory failure along with congestive heart failure and BNP of greater than 25,000 he states he does not wear oxygen at home and he does not have CPAP at home. He started smoking at 17 years of age and still occasionally lights up a cigarette 2-3 times per day. He has no history of chronic lung disease as a child or adolescent he denies any hemoptysis and his PPD status is unknown he admits to exposure to passive smoke as a child as well as an adult. 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 He has no dogs or other pets and he denies any recent travel he says he has intermittent episodes of tightness in his chest sleeps on at home on a hospital bed admits to PND occasional nocturnal cough and chronic edema. He admits to snoring restless sleep nocturia unrestful sleep and excessive daytime somnolence states that in the past he had a diagnosis of obstructive sleep apnea was either never given or someone took away his CPAP machine he is very vague about this specifics of the scenario..He also has hypertension, diabetes and severe peripheral vascular disease. Resulting in ulcers and cellulitis of his lower extremities distally Past Medical History Cardiac Medical History: Reports: Atrial Fibrillation, Congestive Heart Failure , Coronary Artery Disease, Hyperlipidema, Hypertension, Peripheral Vascular Disease, Pulmonary Embolism Pulmonary Medical History: Reports: Chronic Obstructive Pulmonary Disease (COPD) , Sleep Apnea GI Medical History: Reports: Ulcerative Colitis Musculoskeltal Medical History: Reports: Arthritis Psychiatric Medical History: Reports: Depression Past Surgical History Past Surgical History: Reports: Tonsillectomy, Other - Tooth extraction Social History Information Source: Patient, Relative, [facility] Records 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 Lives with: Alone Smoking Status: Current Every Day Smoker Cigarettes Packs Per Day: 5 Number of Years Smokin Passive smoke exposure as: Both Frequency of Alcohol Use: None Hx Recreational Drug Use: No Drugs: None Hx Prescription Drug Abuse: No Do you have pets?: No Have you had any respiratory illnesses as a child?: No Have you been exposed to any sick contacts recently?: No Have you had any recent respiratory illnesses?: No Have you travelled outside of [place] in the past 12 months?: No - Advance Directive Resuscitation Status: Do Not Resuscitate Family History Family History: CAD, COPD, CVA, DM, Hypertension Parental Family History Reviewed: Yes Children Family History Reviewed: Yes Sibling(s) Family History Reviewed.: Yes Medication/Allergy Home Medications: Furosemide [Lasix 40 mg Tablet] 40 mg PO Q4 04/18/17 Lisinopril [Prinivil] 20 mg PO DAILY 04/18/17 Simvastatin [Zocor 10 mg Tablet] 10 mg PO QPM 04/18/17 Allergies/Adverse Reactions: No Known Allergies Allergy (Verified 07/28/16 09:39) Physical Exam Vital Signs: Temp Pulse Resp BP Pulse Ox 98.3 F 88 20 94/63 L 98 04/22/17 11:40 04/22/17 11:52 04/22/17 11:52 04/22/17 11:40 04/22/17 11:52 Intake & Output 04/21/17 04/22/17 04/23/17 06:59 06:59 06:59 Intake Total 799 660 236 Balance 799 660 236 Weight 171 kg 171 kg General appearance: PRESENT: no acute distress, cooperative, disheveled, morbidly obese, well-developed Head exam: PRESENT: atraumatic, normocephalic Eye exam: PRESENT: conjunctiva pale, EOMI Mouth exam: PRESENT: dry mucosa, neck supple, tongue midline Teeth exam: PRESENT: poor dentation Neck exam: ABSENT: carotid bruit, JVD, lymphadenopathy, thyromegaly Respiratory exam: PRESENT: decreased breath sounds, prolonged expiratory phas, rales, rhonchi, symmetrical, unlabored. ABSENT: crackles, retraction, stridor, tachypnea, wheezes Cardiovascular exam: PRESENT: irregular rhythm Pulses: PRESENT: normal radial pulses GI/Abdominal exam: PRESENT: normal bowel sounds, soft. ABSENT: distended, guarding, mass, organolmegaly, rebound, tenderness Rectal exam: PRESENT: deferred Gentrourinary exam: PRESENT: indwelling catheter Extremities exam: PRESENT: +2 edema - Venous stasis disease cellulitis and off ulcer distal left lower extremity venous to stasis disease and cellulitis distal right lower extremity Neurological exam: PRESENT: alert, awake Psychiatric exam: PRESENT: normal mood Skin exam: PRESENT: dry, warm Results Laboratory Results: 04/22/17 04:22 04/22/17 04:22 04/21/17 04/21/17 04/22/17 18:25 18:25 04:22 WBC 8.1 7.2 RBC 4.33 L 4.04 L Hgb 11.7 L 10.9 L Hct 36.2 L 33.6 L MCV 84 83 MCH 27.2 27.1 MCHC 32.4 32.5 RDW 18.9 H 18.6 H Plt Count 207 203 Seg Neutrophils % 67.3 65.2 Lymphocytes % 9.5 L 8.6 L Monocytes % 10.7 11.5 Eosinophils % 11.8 H 14.0 H Basophils % 0.7 0.7 Absolute Neutrophils 5.5 4.7 Absolute Lymphocytes 0.8 0.6 Absolute Monocytes 0.9 0.8 Absolute Eosinophils 1.0 H 1.0 H Absolute Basophils 0.1 0.1 Sodium 140.9 Potassium 4.9 Chloride 103 Carbon Dioxide 28 Anion Gap 10 BUN 32 H Creatinine 1.38 H Est GFR ( Amer) > 60 Est GFR (Non-Af Amer) 54 L Glucose 101 Calcium 8.6 Total Bilirubin 2.0 H AST 20 ALT 32 Alkaline Phosphatase 59 Total Protein 6.6 Albumin 2.9 L 04/22/17 04:22 WBC RBC Hgb Hct MCV MCH MCHC RDW Plt Count Seg Neutrophils % Lymphocytes % Monocytes % Eosinophils % Basophils % Absolute Neutrophils Absolute Lymphocytes Absolute Monocytes Absolute Eosinophils Absolute Basophils Sodium 141.8 Potassium 5.0 Chloride 104 Carbon Dioxide 28 Anion Gap 10 BUN 33 H Creatinine 1.39 H Est GFR ( Amer) > 60 Est GFR (Non-Af Amer) 53 L Glucose 91 Calcium 8.4 Total Bilirubin 1.7 H AST 20 ALT 31 Alkaline Phosphatase 59 Total Protein 6.3 Albumin 2.7 L Impressions: Chest X-Ray 04/16/17 15:18 IMPRESSION: Cardiomegaly with mild pulmonary edema. Cannot rule out a mass in the medial right base. Assessment & Plan - Diagnosis (1) Acute and chronic respiratory failure with hypercapnia Is this a current diagnosis for this admission?: Yes Plan: The above patient has failed BiPAP. This patient would benefit from noninvasive mechanical ventilation via the trilogy AVAPS/AE and faster responding AVAPS rates. The trilogy is able to provide a target tidal volume and also adjusting the EPAP pressures to maintain a patent airway as well as an oral backup rate this machine will help improve PaCO2 levels. The severity of the patient's condition will lead to future hospitalizations and readmissions as well as life-threatening situations without the use of this device trilogy home vent needed for hypercapnic respiratory failure. [facility] to follow for trilogy set up;If patient able to go to a facility that will accommodate trilogy.Patient's BiPAP currently sent changed to AVAPS immediately he felt was much more comfortable. (2) Acute diastolic heart failure Is this a current diagnosis for this admission?: Yes (3) Acute respiratory acidosis Is this a current diagnosis for this admission?: Yes Plan: Noninvasive positive pressure ventilation will hopefully blow off PCO2 and increased pH (4) Acute respiratory failure Qualifiers: Respiratory failure complication: hypoxia and hypercapnia Qualified Code(s) : J96.01 - Acute respiratory failure with hypoxia; J96.02 - Acute respiratory failure with hypercapnia; J96.02 - Acute respiratory failure with hypercapnia; J96.02 - Acute respiratory failure with hypercapnia (5) CHF (congestive heart failure) Qualifiers: Congestive heart failure type: combined Congestive heart failure chronicity : acute on chronic Qualified Code(s): I50.43 - Acute on chronic combined systolic (congestive) and diastolic (congestive) heart failure Is this a current diagnosis for this admission?: Yes (6) Chronic atrial fibrillation with rapid ventricular response Is this a current diagnosis for this admission?: Yes (7) Morbid obesity Is this a current diagnosis for this admission?: Yes (8) Chronic cutaneous venous stasis ulcer Is this a current diagnosis for this admission?: Yes (9) Pulmonary hypertension Is this a current diagnosis for this admission?: Yes Plan: Obstructive sleep apnea, obesity hypoventilation syndrome, chronic tobacco use all be disposed patient to pulmonary hypertension. As this patient does not have idiopathic pulmonary hypertension best we can do is to treat the underlying causes. - Plan Summary Plan Summary: Patient will require CT scan of the chest without contrast prior to discharge
[2017-04-22] MEDS ORDERED: ROFLUMILAST 500 MCG TABLET PO ONE (15:00)
[2017-04-22] MEDS ORDERED: INFLUENZA ADLT QUAD (36MOS+) 2017-18 VAC 0.5 ML SYR IM PRN (15:00)
--- NOTE | 2017-04-22 19:47 | PDOC PROGRESS REPORT ---
Subjective Progress Note for:: 04/22/17 Subjective:: Patient seems to be doing better with gradual improvement. Pt is denying any chest arm or neck discomfort. Patient denying any PND, orthopnea. Patient denied any sustained palpitations, dizziness, syncope, near syncope. Patient denying any fever chills. Patient denying any other significant discomfort. Patient more alert today being visited by an aunt. Patient is maintaining atrial fibrillation with controlled ventricular response. Review of systems: Rest review of systems negative. Medications: Medications have been reviewed. Physical Exam Vital Signs: Temp Pulse Resp BP Pulse Ox 99.1 F 79 28 H 95/67 L 92 04/22/17 15:42 04/22/17 15:42 04/22/17 15:42 04/22/17 15:42 04/22/17 17:23 Intake & Output 04/21/17 04/22/17 04/23/17 06:59 06:59 06:59 Intake Total 799 660 376 Balance 799 660 376 Weight 171 kg 171 kg Exam: GENERAL: well-nourished and in no acute distress. Alert and oriented x3 HEAD: Atraumatic, normocephalic. EYES: Pupils equal round and reactive to light, extraocular movements intact, sclera anicteric, conjunctiva are normal. ENT: TMs normal, nares patent, oropharynx clear without exudates. Moist mucous membranes. No oral ulcerations or bleeding gums noted NECK: supple without lymphadenopathy. Trachea is central. No cervical or axillary lymphadenopathy noted. Carotids are 2+, JVD noted to be elevated at around 12 cm LUNGS: Respiration seems nonlabored, no significant accessory muscle action noted. Bibasilar fine crackles are noted. No wheezing noted. CHEST: Palpation of the chest wall shows no significant chest wall tenderness. No other significant abnormalities noted. 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 ABDOMEN: Soft, no significant tenderness appreciated, normoactive bowel sounds. No guarding, no rebound. No rigidity noted . No masses appreciated. EXTREMITIES: Pedal pulses are 1-2+, no calf tenderness noted. No clubbing or cyanosis.1-2+ pedal edema noted NEUROLOGICAL: Focused neurological exam showed no significant neurologic deficit. Normal speech, no focal weakness appreciated. PSYCH: Normal mood, normal affect. Judgment and insight within normal limits. SKIN: No significant ecchymosis, patient has ichthyosis and superficial ulcerations, however these are covered with bandages in both lower legs. MUSCULOSKELETAL EXAM: No significant joint swelling noted. Results Laboratory Results: 04/22/17 04:22 04/22/17 04:22 04/22/17 04/22/17 04:22 04:22 WBC 7.2 RBC 4.04 L Hgb 10.9 L Hct 33.6 L MCV 83 MCH 27.1 MCHC 32.5 RDW 18.6 H Plt Count 203 Seg Neutrophils % 65.2 Lymphocytes % 8.6 L Monocytes % 11.5 Eosinophils % 14.0 H Basophils % 0.7 Absolute Neutrophils 4.7 Absolute Lymphocytes 0.6 Absolute Monocytes 0.8 Absolute Eosinophils 1.0 H Absolute Basophils 0.1 Sodium 141.8 Potassium 5.0 Chloride 104 Carbon Dioxide 28 Anion Gap 10 BUN 33 H Creatinine 1.39 H Est GFR ( Amer) > 60 Est GFR (Non-Af Amer) 53 L Glucose 91 Calcium 8.4 Total Bilirubin 1.7 H AST 20 ALT 31 Alkaline Phosphatase 59 Total Protein 6.3 Albumin 2.7 L EKG Comments: Telemetry strips shows atrial fibrillation, heart rate well controlled. Impressions: Chest X-Ray 04/16/17 15:18 IMPRESSION: Cardiomegaly with mild pulmonary edema. Cannot rule out a mass in the medial right base. Assessment & Plan - Diagnosis (1) Chronic atrial fibrillation with rapid ventricular response Is this a current diagnosis for this admission?: Yes (2) Acute and chronic respiratory failure with hypercapnia Is this a current diagnosis for this admission?: Yes (3) CHF (congestive heart failure) Qualifiers: Congestive heart failure type: combined Congestive heart failure chronicity : acute on chronic Qualified Code(s): I50.43 - Acute on chronic combined systolic (congestive) and diastolic (congestive) heart failure Is this a current diagnosis for this admission?: Yes (4) Super obesity Is this a current diagnosis for this admission?: Yes - Notes Notes: Patient noted to have increased fluid retention. JVP is noted to be elevated. Will start patient on torsemide 10 mg p.o. daily starting tomorrow. - Time Time with patient: 15-25 minutes
--- NOTE | 2017-04-22 20:59 | PDOC PROGRESS REPORT ---
Subjective Progress Note for:: 04/22/17 Subjective:: I had a long discussion with patient's family about prognosis, patient overall prognosis very poor ,very sedentary the plan is to transfer the custodial for rehabilitation. Physical Exam Vital Signs: Temp Pulse Resp BP Pulse Ox 99.1 F 79 30 H 95/67 L 97 04/22/17 15:42 04/22/17 15:42 04/22/17 20:28 04/22/17 15:42 04/22/17 20:28 Intake & Output 04/21/17 04/22/17 04/23/17 06:59 06:59 06:59 Intake Total 799 660 376 Balance 799 660 376 Weight 171 kg 171 kg General appearance: PRESENT: mild distress Eye exam: PRESENT: PERRLA Respiratory exam: PRESENT: rhonchi Cardiovascular exam: PRESENT: +S1, +S2 GI/Abdominal exam: PRESENT: soft Neurological exam: PRESENT: alert Results Laboratory Results: 04/22/17 04:22 04/22/17 04:22 04/22/17 04/22/17 04:22 04:22 WBC 7.2 RBC 4.04 L Hgb 10.9 L Hct 33.6 L MCV 83 MCH 27.1 MCHC 32.5 RDW 18.6 H Plt Count 203 Seg Neutrophils % 65.2 Lymphocytes % 8.6 L Monocytes % 11.5 Eosinophils % 14.0 H Basophils % 0.7 Absolute Neutrophils 4.7 Absolute Lymphocytes 0.6 Absolute Monocytes 0.8 Absolute Eosinophils 1.0 H Absolute Basophils 0.1 Sodium 141.8 Potassium 5.0 Chloride 104 Carbon Dioxide 28 Anion Gap 10 BUN 33 H Creatinine 1.39 H Est GFR ( Amer) > 60 Est GFR (Non-Af Amer) 53 L Glucose 91 Calcium 8.4 Total Bilirubin 1.7 H AST 20 ALT 31 Alkaline Phosphatase 59 Total Protein 6.3 Albumin 2.7 L Impressions: Chest X-Ray 04/16/17 15:18 IMPRESSION: Cardiomegaly with mild pulmonary edema. Cannot rule out a mass in the medial right base. Assessment & Plan - Diagnosis (1) Chronic respiratory acidosis Is this a current diagnosis for this admission?: Yes (2) Chronic atrial fibrillation with rapid ventricular response Is this a current diagnosis for this admission?: Yes (3) Acute diastolic heart failure Is this a current diagnosis for this admission?: Yes (4) Chronic venous hypertension (idiopathic) with inflammation of bilateral lower extremity Is this a current diagnosis for this admission?: Yes (5) Morbid obesity Is this a current diagnosis for this admission?: Yes (6) Pickwickian syndrome Is this a current diagnosis for this admission?: Yes
[2017-04-22] MEDS: SIMVASTATIN 10 MG TABLET PO SCH (21:58)
[2017-04-23 06:16] LABS: ARTERIAL BLOOD BASE EXCESS 4.7 mmol/L; ARTERIAL BLOOD O2 SATURATION 95.4 % (94-98)
[2017-04-23] MEDS: LANSOPRAZOLE 30 MG TAB.RAP.DR PO SCH (06:47)
[2017-04-23] MEDS: MINERAL OIL/PETROLATUM,WHITE CREAM 114 GM TP SCH (08:46)
[2017-04-23] MEDS: METOPROLOL SUCCINATE 25 MG TAB.SR.24H PO SCH (09:26)
[2017-04-23] MEDS: ASPIRIN 81 MG TABLET, ENT COATED PO SCH (09:26)
[2017-04-23] MEDS: APIXABAN 2.5 MG TABLET PO SCH ×2 (09:26→17:14)
[2017-04-23] MEDS: ROFLUMILAST 500 MCG TABLET PO SCH (09:27)
[2017-04-23] MEDS: TORSEMIDE 20 MG TABLET PO SCH (10:04)
--- NOTE | 2017-04-23 11:26 | PDOC PROGRESS REPORT ---
Subjective Progress Note for:: 04/23/17 Subjective:: Awake and alert when can I go home Physical Exam Vital Signs: Temp Pulse Resp BP Pulse Ox 98.0 F 103 H 23 H 108/61 93 04/23/17 07:59 04/23/17 07:59 04/23/17 07:59 04/23/17 07:59 04/23/17 07:59 Intake & Output 04/22/17 04/23/17 04/24/17 06:59 06:59 06:59 Intake Total 660 748 Balance 660 748 Weight 171 kg 114.2 kg General appearance: PRESENT: no acute distress, cooperative, disheveled, morbidly obese, well-developed Head exam: PRESENT: atraumatic, normocephalic Eye exam: PRESENT: conjunctiva pale, EOMI Mouth exam: PRESENT: dry mucosa, neck supple, tongue midline Teeth exam: PRESENT: poor dentation Neck exam: ABSENT: carotid bruit, JVD, lymphadenopathy, thyromegaly Respiratory exam: PRESENT: decreased breath sounds, prolonged expiratory phas, rhonchi, symmetrical, unlabored, wheezes. ABSENT: accessory muscle use, chest wall tenderness, clear to auscultation dell, crackles, retraction, stridor Cardiovascular exam: PRESENT: RRR, +S1, +S2 Pulses: PRESENT: normal radial pulses GI/Abdominal exam: PRESENT: normal bowel sounds, soft. ABSENT: distended, guarding, mass, organolmegaly, rebound, tenderness Rectal exam: PRESENT: deferred Gentrourinary exam: PRESENT: indwelling catheter Extremities exam: PRESENT: other - Bilateral cellulitis lower extremity ulcer Neurological exam: PRESENT: alert, awake Psychiatric exam: PRESENT: normal mood Skin exam: PRESENT: dry Results Laboratory Results: 04/22/17 04:22 04/22/17 04:22 04/23/17 05:50 Carbonic Acid 1.71 H HCO3/H2CO3 Ratio 18:1 ABG pH 7.36 ABG pCO2 56.9 H ABG pO2 81.5 ABG HCO3 31.4 H ABG O2 Saturation 95.4 ABG Base Excess 4.7 FiO2 35% Impressions: Chest X-Ray 04/16/17 15:18 IMPRESSION: Cardiomegaly with mild pulmonary edema. Cannot rule out a mass in the medial right base. Assessment & Plan - Diagnosis (1) Acute and chronic respiratory failure with hypercapnia Is this a current diagnosis for this admission?: Yes Plan: sufficiently improved PCO2 and pH on AVAPS (2) Acute diastolic heart failure Is this a current diagnosis for this admission?: Yes (3) Acute respiratory acidosis Is this a current diagnosis for this admission?: Yes Plan: Improved (4) Acute respiratory failure Qualifiers: Respiratory failure complication: hypoxia and hypercapnia Qualified Code(s) : J96.01 - Acute respiratory failure with hypoxia; J96.02 - Acute respiratory failure with hypercapnia; J96.02 - Acute respiratory failure with hypercapnia; J96.02 - Acute respiratory failure with hypercapnia Is this a current diagnosis for this admission?: Yes (5) CHF (congestive heart failure) Qualifiers: Congestive heart failure type: combined Congestive heart failure chronicity : acute on chronic Qualified Code(s): I50.43 - Acute on chronic combined systolic (congestive) and diastolic (congestive) heart failure Is this a current diagnosis for this admission?: Yes (6) Chronic atrial fibrillation with rapid ventricular response Is this a current diagnosis for this admission?: Yes (7) Morbid obesity Is this a current diagnosis for this admission?: Yes (8) Chronic cutaneous venous stasis ulcer Is this a current diagnosis for this admission?: Yes (9) Pulmonary hypertension Is this a current diagnosis for this admission?: Yes
--- NOTE | 2017-04-23 20:51 | PDOC PROGRESS REPORT ---
Subjective Progress Note for:: 04/23/17 Subjective:: Patient seems to be doing better with gradual improvement. Pt is denying any chest arm or neck discomfort. Patient denying any PND, orthopnea. Patient denied any sustained palpitations, dizziness, syncope, near syncope. Patient denying any fever chills. Patient denying any other significant discomfort. Patient noted to be more alert and more conversational today. He remains stable. Demadex 10 mg p.o. daily is started Patient is maintaining atrial fibrillation with controlled ventricular response. Review of systems: Rest review of systems negative. Medications: Medications have been reviewed. Physical Exam Vital Signs: Temp Pulse Resp BP Pulse Ox 97.8 F 101 H 24 H 103/62 94 04/23/17 19:28 04/23/17 19:28 04/23/17 20:00 04/23/17 19:28 04/23/17 20:00 Intake & Output 04/22/17 04/23/17 04/24/17 06:59 06:59 06:59 Intake Total 660 748 741 Output Total 0 Balance 660 748 741 Weight 171 kg 114.2 kg 174.9 kg Exam: GENERAL: well-nourished and in no acute distress. Alert and oriented x3 HEAD: Atraumatic, normocephalic. EYES: Pupils equal round and reactive to light, extraocular movements intact, sclera anicteric, conjunctiva are normal. ENT: TMs normal, nares patent, oropharynx clear without exudates. Moist mucous membranes. No oral ulcerations or bleeding gums noted NECK: supple without lymphadenopathy. Trachea is central. No cervical or axillary lymphadenopathy noted. Carotids are 2+, JVD 10 to 12 cm LUNGS: Respiration seems nonlabored, no significant accessory muscle action noted. Breath sounds clear to auscultation bilaterally and equal noted. No wheezes rales or rhonchi noted. No significant dullness noted on percussion. CHEST: Palpation of the chest wall shows no significant chest wall tenderness. No other significant abnormalities noted. HEART: [place] [employer], No PSH, 1/6 MICHELLE aortic area, 1/6 ramos systolic murmur mitral area, no rubs, no gallops. ABDOMEN: Soft, no significant tenderness appreciated, normoactive bowel sounds. No guarding, no rebound. No rigidity noted . No masses appreciated. EXTREMITIES: Pedal pulses are 1-2+, no calf tenderness noted. No clubbing or cyanosis. Plus 2+ pedal edema noted NEUROLOGICAL: Focused neurological exam showed no significant neurologic deficit. Normal speech, no focal weakness appreciated. PSYCH: Normal mood, normal affect. Judgment and insight within normal limits. SKIN: Significant dermatitis changes noted both lower legs along with ichthyosis. MUSCULOSKELETAL EXAM: No significant joint swelling noted. Results Laboratory Results: 04/22/17 04:22 04/22/17 04:22 04/23/17 05:50 Carbonic Acid 1.71 H HCO3/H2CO3 Ratio 18:1 ABG pH 7.36 ABG pCO2 56.9 H ABG pO2 81.5 ABG HCO3 31.4 H ABG O2 Saturation 95.4 ABG Base Excess 4.7 FiO2 35% EKG Comments: Telemetry strip shows atrial fibrillation with controlled ventricular response. Impressions: Chest X-Ray 04/16/17 15:18 IMPRESSION: Cardiomegaly with mild pulmonary edema. Cannot rule out a mass in the medial right base. Assessment & Plan - Diagnosis (1) Chronic atrial fibrillation with rapid ventricular response Is this a current diagnosis for this admission?: Yes (2) Acute and chronic respiratory failure with hypercapnia Is this a current diagnosis for this admission?: Yes (3) CHF (congestive heart failure) Qualifiers: Congestive heart failure type: combined Congestive heart failure chronicity : acute on chronic Qualified Code(s): I50.43 - Acute on chronic combined systolic (congestive) and diastolic (congestive) heart failure Is this a current diagnosis for this admission?: Yes (4) Super obesity Is this a current diagnosis for this admission?: Yes - Notes Notes: Chronic atrial fibrillation: Heart rate seems under reasonable control. Continue chronic anticoagulation. CHF: Mostly right-sided with some diastolic dysfunction. Continue diuretic therapy. Follow electrolytes. Acute on chronic respiratory failure with hypercapnia: Most likely related to obesity hypoventilation syndrome along with some underlying COPD. Pulmonary following. Super obesity: Patient has been encouraged in weight loss. Dr. Deacon Henriquez to follow from tomorrow morning. - Time Time with patient: 15-25 minutes - CODE STATUS : was discussed, patient remains DO NOT RESUSCITATE. Surrogate decision-maker unchanged. Multiple medical problems were addressed. More than 50% of the time spent coordinating care, discussing management plans with involved caregivers. Management plans discussed with involved personnels. Medical decision making was of moderate to high complexity, patient's has multiple comorbidities. Medications reviewed and adjusted accordingly: Yes
[2017-04-23] MEDS: SIMVASTATIN 10 MG TABLET PO SCH (21:54)
[2017-04-23] MEDS: IPRATROPIUM/ALBUTEROL 0.5-2.5 MG/3 ML AMPUL NEB PRN (23:38)
[2017-04-24] MEDS: LANSOPRAZOLE 30 MG TAB.RAP.DR PO SCH (06:14)
--- NOTE | 2017-04-24 10:03 | PDOC PROGRESS REPORT ---
Subjective Progress Note for:: 04/23/17 Subjective:: I had a long discussion with patient's family about prognosis, patient overall prognosis very poor ,very sedentary the plan is to transfer the [facility] for rehabilitation. Physical Exam Vital Signs: Temp Pulse Resp BP Pulse Ox 98.7 F 101 H 20 104/70 96 04/24/17 07:52 04/24/17 07:52 04/24/17 07:52 04/24/17 07:52 04/24/17 07:52 Intake & Output 04/23/17 04/24/17 04/25/17 06:59 06:59 06:59 Intake Total 748 1674 Output Total 0 Balance 748 1674 Weight 114.2 kg 176.8 kg General appearance: PRESENT: no acute distress Eye exam: PRESENT: PERRLA Respiratory exam: PRESENT: rhonchi Cardiovascular exam: PRESENT: +S1, +S2 GI/Abdominal exam: PRESENT: soft Neurological exam: PRESENT: alert Results Laboratory Results: 04/22/17 04:22 04/22/17 04:22 Impressions: Chest X-Ray 04/16/17 15:18 IMPRESSION: Cardiomegaly with mild pulmonary edema. Cannot rule out a mass in the medial right base. Assessment & Plan - Diagnosis (1) Chronic respiratory acidosis Is this a current diagnosis for this admission?: Yes (2) Chronic atrial fibrillation with rapid ventricular response Is this a current diagnosis for this admission?: Yes (3) Acute diastolic heart failure Is this a current diagnosis for this admission?: Yes (4) Chronic venous hypertension (idiopathic) with inflammation of bilateral lower extremity Is this a current diagnosis for this admission?: Yes (5) Morbid obesity Is this a current diagnosis for this admission?: Yes (6) Pickwickian syndrome Is this a current diagnosis for this admission?: Yes
[2017-04-24] MEDS: TORSEMIDE 20 MG TABLET PO SCH (10:21)
[2017-04-24] MEDS: METOPROLOL SUCCINATE 25 MG TAB.SR.24H PO SCH (10:22)
[2017-04-24] MEDS: ROFLUMILAST 500 MCG TABLET PO SCH (10:22)
[2017-04-24] MEDS: MINERAL OIL/PETROLATUM,WHITE CREAM 114 GM TP SCH (10:22)
[2017-04-24] MEDS: ASPIRIN 81 MG TABLET, ENT COATED PO SCH (10:22)
[2017-04-24] MEDS: APIXABAN 2.5 MG TABLET PO SCH ×2 (10:23→17:25)
[2017-04-24 15:01] LABS: ABSOLUTE BASOPHILS # (AUTO) 0.1 10^3/uL (0.0-0.2); ABSOLUTE EOSINOPHILS # (AUTO) 0.7 10^3/uL (0.0-0.6); ABSOLUTE LYMPHOCYTES (AUTO) 0.7 10^3/uL (0.5-4.7); ABSOLUTE MONOCYTES (AUTO) 0.7 10^3/uL (0.1-1.4); ABSOLUTE NEUT (AUTO) 3.5 10^3/uL (1.7-8.2); BASOPHILS % (AUTO) 1.1 % (0-2); EOSINOPHILS % (AUTO) 11.7 % (0-6); HEMATOCRIT 33.4 % (37.9-51.0); HEMOGLOBIN 10.8 g/dL (13.5-17.0); MEAN CORPUSCULAR HEMOGLOBIN 27.1 pg (27.0-33.4); MEAN CORPUSCULAR HGB CONC 32.3 g/dL (32.0-36.0); MEAN CORPUSCULAR VOLUME 84 fl (80-97); MONOCYTES % (AUTO) 13.1 % (3-13); RED BLOOD COUNT 3.98 10^6/uL (4.35-5.55); RED CELL DISTRIBUTION WIDTH 18.1 % (11.5-14.0); SEGMENTED NEUTROPHILS % (AUTO) 62.1 % (42-78); WHITE BLOOD COUNT 5.7 10^3/uL (4.0-10.5)
[2017-04-24] MEDS: IPRATROPIUM/ALBUTEROL 0.5-2.5 MG/3 ML AMPUL NEB PRN (16:05)
--- NOTE | 2017-04-24 16:49 | PDOC PROGRESS REPORT ---
Subjective Progress Note for:: 04/24/17 Subjective:: Patient seen by the bedside he has stage 2-3 pressure ulcer of the buttock, is on p.o. diuretic. He cannot tolerate furosemide infusion because of the blood pressure is marginally normal. Physical Exam Vital Signs: Temp Pulse Resp BP Pulse Ox 97.6 F 87 22 H 103/69 95 04/24/17 12:28 04/24/17 16:00 04/24/17 16:00 04/24/17 12:28 04/24/17 16:00 Intake & Output 04/23/17 04/24/17 04/25/17 06:59 06:59 06:59 Intake Total 748 1674 236 Output Total 0 Balance 748 1674 236 Weight 114.2 kg 176.8 kg General appearance: PRESENT: no acute distress Eye exam: PRESENT: PERRLA Respiratory exam: PRESENT: clear to auscultation dell Cardiovascular exam: PRESENT: +S1, +S2 GI/Abdominal exam: PRESENT: soft Extremities exam: PRESENT: other - Stage II decubitus ulcer of the sacrum Neurological exam: PRESENT: alert Results Laboratory Results: 04/24/17 14:20 04/22/17 04:22 04/24/17 14:20 WBC 5.7 RBC 3.98 L Hgb 10.8 L Hct 33.4 L MCV 84 MCH 27.1 MCHC 32.3 RDW 18.1 H Plt Count 241 Seg Neutrophils % 62.1 Lymphocytes % 12.0 L Monocytes % 13.1 H Eosinophils % 11.7 H Basophils % 1.1 Absolute Neutrophils 3.5 Absolute Lymphocytes 0.7 Absolute Monocytes 0.7 Absolute Eosinophils 0.7 H Absolute Basophils 0.1 Impressions: Chest X-Ray 04/16/17 15:18 IMPRESSION: Cardiomegaly with mild pulmonary edema. Cannot rule out a mass in the medial right base. Assessment & Plan - Diagnosis (1) Chronic respiratory acidosis Is this a current diagnosis for this admission?: Yes (2) Chronic atrial fibrillation with rapid ventricular response Is this a current diagnosis for this admission?: Yes (3) Acute diastolic heart failure Is this a current diagnosis for this admission?: Yes (4) Chronic venous hypertension (idiopathic) with inflammation of bilateral lower extremity Is this a current diagnosis for this admission?: Yes (5) Morbid obesity Is this a current diagnosis for this admission?: Yes (6) Pickwickian syndrome Is this a current diagnosis for this admission?: Yes (7) Sacral decubitus ulcer, stage II Is this a current diagnosis for this admission?: Yes Plan: continue allevyn dressing
[2017-04-24] MEDS: SIMVASTATIN 10 MG TABLET PO SCH (21:19)
--- NOTE | 2017-04-24 23:28 | PROGRESS NOTE E ---
Progress Note NAME: ELEONORA SHEFFIELD : 1960 AGE: 56Y DATE: 04/24/2017 ROOM: 334 SUBJECTIVE: The patient is wearing a CPAP for sleep apnea. He denies any chest pain or discomfort. He has orthopnea but no PND. His leg edema is slightly better. He continues to be in atrial fibrillation, at present the rate is controlled at 87 beats per minute. He is off the dobutamine and his blood pressure is low normal at 103/69. He is otherwise asymptomatic. There is no bleeding on Eliquis. There are no TIA or CVA symptoms. OBJECTIVE: GENERAL: On examination the patient is morbidly obese, seems to be in no acute distress. He is awake, alert, oriented x3. VITAL SIGNS: He is afebrile with a temperature of 97.6 degrees Fahrenheit, pulse is 87 beats per minute, blood pressure is 103/69, respirations are 22 per minute, O2 saturations are 92% on 3.5 L nasal cannula but at present the patient is on BiPAP. HEENT: Head is atraumatic, normocephalic. Eyes: Pupils are equal, round and regular, reactive to light and accommodation. Extraocular movements are normal. There is no scleral icterus. Conjunctivae are without any pallor. ENT is negative. NECK: Supple without lymphadenopathy. Trachea is central. There is no cervical or axillary lymphadenopathy noted. Carotids are equal without any bruits. There is mild JVD present. LUNGS: Respirations seem nonlabored. There is diminished air entry and prolonged expiration due to COPD. There are no rhonchi, rales or wheezing. CHEST: Palpation of the chest shows no chest wall tenderness. HEART: S1 and S2 is heard. S1 is of variable intensity. There is no S3 gallop. There is no S4 gallop. There is a systolic murmur in the left sternal border and the apex. There is no rub. ABDOMEN: Obese, nontender. There is no hepatosplenomegaly. Bowel sounds are well heard. EXTREMITIES: Pedal pulses are diminished. Femorals are diminished without any bruits. There is 1+ to 2- pedal edema with venous stasis dermatitis changes. There is no cellulitis. There is no cyanosis or clubbing. CENTRAL NERVOUS SYSTEM: The patient is conscious, awake, alert and oriented x3 with no focal deficits. PSYCHIATRIC: The patient's judgment and insight are within normal limits. The patient's mood is normal. SKIN: Shows significant dermatitis, venous stasis dermatitis, with ichthyosis in both lower extremities. INTAKE/OUTPUT: The patient's intake/output is not accurate. LABORATORY DATA: The patient's white count is 5700, hemoglobin is 10.8, hematocrit is 33.4, platelet count is 241,000. IMPRESSION: 1. CHRONIC ATRIAL FIBRILLATION, PRESENT CONTROLLED VENTRICULAR RESPONSE. The patient is on metoprolol and also the patient is on Eliquis 2.5 mg p.o. b.i.d. We will continue that. 2. ACUTE ON CHRONIC RESPIRATORY FAILURE WITH HYPERCAPNIA. This is getting better, the patient is using CPAP. 3. CONGESTIVE HEART FAILURE. The etiology of this is not clear. It could be due to atrial fibrillation with rapid ventricular response. He had an echo in 10/2016 which showed low normal EF of 55%. 4. MORBID OBESITY. 5. OBSTRUCTIVE SLEEP APNEA. Continue BiPAP. 6. COPD AT PRESENT SEEMS TO BE COMPENSATED. PLAN: Continue current medications, including respiratory treatment. Continue aspirin and Eliquis. Continue metoprolol and continue simvastatin for his hyperlipidemia. The patient also has been started on Demadex. Medications have been reviewed. Continue metoprolol and Eliquis for his atrial fibrillation, it seems to be controlling his heart rate. The patient is off the dobutamine. Note that the patient is a do not resuscitate, Mr. Jake Morrissey, is the surrogate healthcare decision maker. TIME SPENT: Note 30 minutes spent on this patient with more than 50% of the time spent on direct patient care. His consultation and progress notes have been reviewed. Medications have been reviewed. Decision making was of moderate complexity. The patient's renal function on 04/22, showed a GFR greater than 60. Note that the patient's congestive heart failure is most likely diastolic dysfunction and mostly right sided. Note pulmonary is following the patient. DICTATING PHYSICIAN: FOUZIA DO M.D. [id number] PHY#: [id number] ID: [id number] JOB#: [id number] ACCT: [id number] cc: >
[2017-04-25 06:24] LABS: ABSOLUTE EOSINOPHILS # (AUTO) 0.6 10^3/uL (0.0-0.6); ABSOLUTE LYMPHOCYTES (AUTO) 0.8 10^3/uL (0.5-4.7); ABSOLUTE MONOCYTES (AUTO) 0.7 10^3/uL (0.1-1.4); ABSOLUTE NEUT (AUTO) 3.3 10^3/uL (1.7-8.2); BASOPHILS % (AUTO) 0.9 % (0-2); EOSINOPHILS % (AUTO) 11.5 % (0-6); HEMATOCRIT 32.8 % (37.9-51.0); HEMOGLOBIN 10.6 g/dL (13.5-17.0); LYMPHOCYTES % (AUTO) 14.3 % (13-45); MEAN CORPUSCULAR HEMOGLOBIN 26.8 pg (27.0-33.4); MEAN CORPUSCULAR HGB CONC 32.3 g/dL (32.0-36.0); MEAN CORPUSCULAR VOLUME 83 fl (80-97); MONOCYTES % (AUTO) 13.2 % (3-13); RED BLOOD COUNT 3.95 10^6/uL (4.35-5.55); RED CELL DISTRIBUTION WIDTH 17.9 % (11.5-14.0); SEGMENTED NEUTROPHILS % (AUTO) 60.1 % (42-78); WHITE BLOOD COUNT 5.5 10^3/uL (4.0-10.5)
[2017-04-25] MEDS: LANSOPRAZOLE 30 MG TAB.RAP.DR PO SCH (06:49)
[2017-04-25] MEDS: IPRATROPIUM/ALBUTEROL 0.5-2.5 MG/3 ML AMPUL NEB PRN ×3 (08:49→22:29)
[2017-04-25] MEDS: ASPIRIN 81 MG TABLET, ENT COATED PO SCH (09:07)
[2017-04-25] MEDS: METOPROLOL SUCCINATE 25 MG TAB.SR.24H PO SCH (09:07)
[2017-04-25] MEDS: ROFLUMILAST 500 MCG TABLET PO SCH (09:08)
[2017-04-25] MEDS: TORSEMIDE 20 MG TABLET PO SCH (09:09)
[2017-04-25] MEDS: MINERAL OIL/PETROLATUM,WHITE CREAM 114 GM TP SCH (09:09)
[2017-04-25] MEDS: APIXABAN 2.5 MG TABLET PO SCH ×2 (09:09→18:40)
--- NOTE | 2017-04-25 20:53 | PROGRESS NOTE E ---
Progress Note NAME: ELEONORA SHEFFIELD : 1960 AGE: 56Y DATE: 04/25/2017 ROOM: 334 SUBJECTIVE: The patient still intermittently wears CPAP for sleep apnea. He denies any chest pain or discomfort. He has orthopnea, but no PND. His leg edema is slightly better. He continues to be in atrial fibrillation, but with a controlled ventricular response. He is off all pressors and his blood pressure is stable. He is asymptomatic. There is no bleeding on Eliquis. There is no TIA or CVA symptoms. OBJECTIVE: GENERAL: On examination, the patient is morbidly obese and seems to be in no acute distress. He is awake, alert, oriented x3. VITAL SIGNS: He is afebrile with a temperature of 97.7. Pulse is 69 beats per minute, irregularly irregular. Blood pressure is 102/50. Respirations are 20 per minute. O2 saturations are 96% on 4L nasal cannula. HEAD: Atraumatic/normocephalic. EENT: Pupils are equal, round, regular, reactive to light and accommodation. Extraocular movements are normal. There is no scleral icterus. ENT is negative. NECK: Supple without lymphadenopathy. Carotids are equal without any bruit. Trachea is central. There is no cervical or axillary lymphadenopathy. There is still some mild JVD. LUNGS: Respirations are nonlabored. There is diminished air entry and prolonged expiration due to COPD. There are no rhonchi, rales or wheezing. On percussion, there is hyperresonance. Palpation of the chest wall shows no chest wall tenderness. HEART: S1 and S2 is heard. S1 is of variable intensity. There is no S3 gallop. There is no S4 gallop. There is a systolic murmur at the left sternal border at the apex. There is no rub. ABDOMEN: Obese, nontender. There is no hepatosplenomegaly. Bowel sounds are well heard. EXTREMITIES: Pedal pulses are diminished. Femorals are diminished without any bruits. There is plus pedal edema with venous stasis dermatitis and ichthyosis. There is no cellulitis. There is no cyanosis or clubbing. NEUROLOGIC: The patient is conscious, awake, alert. PSYCHIATRIC: The patient's judgement and insight are intact and within normal limits. The patient's mood is normal. SKIN: Significant venous dermatitis in both lower extremities with ichthyosis in both lower extremities. FLUID BALANCE: The patient's intake and output is not accurate. DIAGNOSTIC DATA: The patient's white count is 5500, hemoglobin is 10.6, hematocrit 32.8, platelet count is 230,000. ASSESSMENT: 1. THE PATIENT'S CHRONIC ATRIAL FIBRILLATION IS CONTROLLED AT PRESENT WITH CONTROLLED VENTRICULAR RESPONSE. The patient is on metoprolol and also the patient is on Eliquis. So far no bleeding complications and no TIA or CVA. 2. ACUTE AND CHRONIC RESPIRATORY FAILURE WITH HYPERCAPNIA, WHICH IS GETTING BETTER. THE PATIENT AT PRESENT IS ASYMPTOMATIC. The patient continue using BiPAP. 3. CONGESTIVE HEART FAILURE, THE ETIOLOGY OF WHICH IS NOT CLEAR. IT COULD BE DUE TO ATRIAL FIBRILLATION WITH RAPID VENTRICULAR RESPONSE AND DIASTOLIC DYSFUNCTION. AT PRESENT, THE PATIENT SEEMS TO BE COMPENSATED. THERE SEEMS TO BE MORE RIGHT-SIDED FAILURE WITH LEG EDEMA. 4. MORBID OBESITY. 5. OBSTRUCTIVE SLEEP APNEA, CONTINUE BIPAP. 6. COPD, AT PRESENT SEEMS TO BE COMPENSATED. As mentioned earlier, continue current medications including respiratory treatment. Continue aspirin and Eliquis. Continue metoprolol. Continue simvastatin for hyperlipidemia. The patient has also been started on Demadex. Note 30 minutes spent on this patient with more than 50% of the time spent on direct patient care. Decision-making was of moderate complexity. We will follow with you. DICTATING PHYSICIAN: FOUZIA DO M.D. [id number] PHY#: [id number] ID: [id number] JOB#: [id number] ACCT: [id number] cc: >
[2017-04-25] MEDS: SIMVASTATIN 10 MG TABLET PO SCH (21:59)
--- NOTE | 2017-04-25 22:05 | PDOC PROGRESS REPORT ---
Subjective Progress Note for:: 04/25/17 Subjective:: Patient overall condition is very poor the plan is to transfer him to shelter for rehabilitation, he does not look like a good candidate for rehabilitation he does not particularly make any effort to move out of the bed ,prognosis is very poor in this patient Physical Exam Vital Signs: Temp Pulse Resp BP Pulse Ox 97.7 F 89 20 91/57 L 99 04/25/17 19:29 04/25/17 19:29 04/25/17 19:29 04/25/17 19:29 04/25/17 19:29 Intake & Output 04/24/17 04/25/17 04/26/17 06:59 06:59 06:59 Intake Total 1674 1322 476 Output Total 0 Balance 1674 1322 476 Weight 176.8 kg 177.3 kg General appearance: PRESENT: mild distress Eye exam: PRESENT: PERRLA Respiratory exam: PRESENT: clear to auscultation dell Cardiovascular exam: PRESENT: +S1, +S2 GI/Abdominal exam: PRESENT: other - Obese abdomen Neurological exam: PRESENT: alert Results Laboratory Results: 04/25/17 06:09 04/22/17 04:22 04/25/17 06:09 WBC 5.5 RBC 3.95 L Hgb 10.6 L Hct 32.8 L MCV 83 MCH 26.8 L MCHC 32.3 RDW 17.9 H Plt Count 230 Seg Neutrophils % 60.1 Lymphocytes % 14.3 Monocytes % 13.2 H Eosinophils % 11.5 H Basophils % 0.9 Absolute Neutrophils 3.3 Absolute Lymphocytes 0.8 Absolute Monocytes 0.7 Absolute Eosinophils 0.6 Absolute Basophils 0.0 Impressions: Chest X-Ray 04/16/17 15:18 IMPRESSION: Cardiomegaly with mild pulmonary edema. Cannot rule out a mass in the medial right base. Assessment & Plan - Diagnosis (1) Chronic respiratory acidosis Is this a current diagnosis for this admission?: Yes (2) Chronic atrial fibrillation with rapid ventricular response Is this a current diagnosis for this admission?: Yes (3) Acute diastolic heart failure Is this a current diagnosis for this admission?: Yes (4) Chronic venous hypertension (idiopathic) with inflammation of bilateral lower extremity Is this a current diagnosis for this admission?: Yes (5) Morbid obesity Is this a current diagnosis for this admission?: Yes (6) Pickwickian syndrome Is this a current diagnosis for this admission?: Yes (7) Sacral decubitus ulcer, stage II Is this a current diagnosis for this admission?: Yes
[2017-04-25 22:45] LABS: ALANINE AMINOTRANSFERASE 32 U/L (21-72); ALBUMIN 2.8 g/dL (3.5-5.0); ALKALINE PHOSPHATASE 76 U/L (38-126); ANION GAP 8 (5-19); ASPARTATE AMINO TRANSFERASE 21 U/L (17-59); BILIRUBIN,DIRECT 1.1 mg/dL (0.0-0.4); BILIRUBIN,TOTAL 1.3 mg/dL (0.2-1.3); BLOOD UREA NITROGEN 31 mg/dL (7-20); CARBON DIOXIDE 32 mmol/L (22-30); CHLORIDE 101 mmol/L (98-107); CREATININE RESULT 1.38 mg/dL (0.52-1.25); GLUCOSE 92 mg/dL (75-110); POTASSIUM 5.4 mmol/L (3.6-5.0); SODIUM 141.4 mmol/L (137-145); TOTAL PROTEIN 6.5 g/dL (6.3-8.2)
[2017-04-26] MEDS: LANSOPRAZOLE 30 MG TAB.RAP.DR PO SCH (05:10)
[2017-04-26 06:31] LABS: ALANINE AMINOTRANSFERASE 34 U/L (21-72); ALBUMIN 2.7 g/dL (3.5-5.0); ALKALINE PHOSPHATASE 67 U/L (38-126); ANION GAP 7 (5-19); ASPARTATE AMINO TRANSFERASE 20 U/L (17-59); BILIRUBIN,DIRECT 1.1 mg/dL (0.0-0.4); BILIRUBIN,TOTAL 1.5 mg/dL (0.2-1.3); BLOOD UREA NITROGEN 30 mg/dL (7-20); CARBON DIOXIDE 32 mmol/L (22-30); CHLORIDE 102 mmol/L (98-107); CREATININE RESULT 1.29 mg/dL (0.52-1.25); GLUCOSE 83 mg/dL (75-110); POTASSIUM 5.2 mmol/L (3.6-5.0); SODIUM 140.5 mmol/L (137-145); TOTAL PROTEIN 6.2 g/dL (6.3-8.2)
[2017-04-26] MEDS: APIXABAN 2.5 MG TABLET PO SCH ×2 (09:19→18:53)
[2017-04-26] MEDS: TORSEMIDE 20 MG TABLET PO SCH (09:20)
[2017-04-26] MEDS: ROFLUMILAST 500 MCG TABLET PO SCH (09:22)
[2017-04-26] MEDS: METOPROLOL SUCCINATE 25 MG TAB.SR.24H PO SCH (09:23)
[2017-04-26] MEDS: ASPIRIN 81 MG TABLET, ENT COATED PO SCH (09:23)
[2017-04-26] MEDS: MINERAL OIL/PETROLATUM,WHITE CREAM 114 GM TP SCH (09:24)
[2017-04-26] MEDS: SIMVASTATIN 10 MG TABLET PO SCH (21:08)
--- NOTE | 2017-04-26 21:16 | PDOC TRANSFER SUMMARY ---
General - Admit/Disc Date/PCP Admission Date/Primary Care Provider: 04/16/17 19:24 ZOYA LEONE MD Discharge Date: 04/26/17 - Discharge Diagnosis (1) Acute diastolic heart failure Is this a current diagnosis for this admission?: Yes (2) Chronic respiratory acidosis Is this a current diagnosis for this admission?: Yes (3) Chronic atrial fibrillation with rapid ventricular response Is this a current diagnosis for this admission?: Yes (4) Chronic venous hypertension (idiopathic) with inflammation of bilateral lower extremity Is this a current diagnosis for this admission?: Yes (5) Morbid obesity Is this a current diagnosis for this admission?: Yes (6) Pickwickian syndrome Is this a current diagnosis for this admission?: Yes (7) Sacral decubitus ulcer, stage II Is this a current diagnosis for this admission?: Yes - Additional Information Resuscitation Status: Do Not Resuscitate Discharge Diet: Cardiac Discharge Activity: Activity As Tolerated, Balance Activity w/Rest, Weigh Daily Home Medications: Lisinopril [Prinivil] 20 mg PO DAILY 04/18/17 Simvastatin [Zocor 10 mg Tablet] 10 mg PO QPM 04/18/17 Apixaban [Eliquis 2.5 mg Tablet] 2.5 mg PO BID tablet 04/26/17 Lansoprazole [Prevacid 30 mg Odt Tablet] 30 mg PO Q6AM tab.rap.dr 04/26/17 Metoprolol Succinate [Toprol Xl 25 mg Tab.sr] 25 mg PO DAILY tab.sr.24h Mineral Oil/Petrolatum,White [Eucerin Cream 114 gm] 1 applic TP DAILY jar 04/26 Torsemide [Demadex 20 mg Tablet] 10 mg PO DAILY tablet 04/26/17 History of Present Illness Admission Date/PCP: 04/16/17 19:24 ZOYA LEONE MD History of Present Illness: Patient 56-year-old male with severe morbid obesity, chronic diastolic heart failure, chronic venous hypertension of lower extremities, chronic leg ulcers he was admitted when he presented with acute diastolic heart failure ,low blood pressure. Hospital Course Hospital Course: Patient did not tolerate intravenous furosemide because of hypotension, he required vasopressors to maintain adequate blood pressure in order to use IV furosemide, ultimately the IV furosemide was transitioned to p.o. diuretic. Patient is very deconditioned ,morbidly obese, sedentary with chronic venous stasis of the lower extremities, chronic leg ulcers. He also have sacral decubiti ulcer.Overall prognosis is very poor, he was made a DNR status. Physical Exam Vital Signs: Temp Pulse Resp BP Pulse Ox 98.3 F 77 20 90/49 L 98 04/26/17 20:12 04/26/17 20:12 04/26/17 20:12 04/26/17 20:12 04/26/17 20:12 Intake & Output 04/25/17 04/26/17 04/27/17 06:59 06:59 06:59 Intake Total 1322 526 601 Balance 1322 526 601 Weight 177.3 kg 173 kg General appearance: PRESENT: morbidly obese Eye exam: PRESENT: PERRLA Respiratory exam: PRESENT: clear to auscultation dell Cardiovascular exam: PRESENT: RRR Vascular exam: PRESENT: normal capillary refill GI/Abdominal exam: PRESENT: normal bowel sounds, soft Rectal exam: PRESENT: deferred Extremities exam: PRESENT: full ROM, +2 edema Neurological exam: PRESENT: alert Psychiatric exam: PRESENT: appropriate affect, normal mood Results Laboratory Results: 04/25/17 06:09 04/26/17 06:05 04/25/17 04/26/17 22:20 06:05 Sodium 141.4 140.5 Potassium 5.4 H 5.2 H Chloride 101 102 Carbon Dioxide 32 H 32 H Anion Gap 8 7 BUN 31 H 30 H Creatinine 1.38 H 1.29 H Est GFR ( Amer) > 60 > 60 Est GFR (Non-Af Amer) 54 L 58 L Glucose 92 83 Calcium 9.0 9.0 Total Bilirubin 1.3 1.5 H AST 21 20 ALT 32 34 Alkaline Phosphatase 76 67 Total Protein 6.5 6.2 L Albumin 2.8 L 2.7 L Impressions: Chest X-Ray 04/16/17 15:18 IMPRESSION: Cardiomegaly with mild pulmonary edema. Cannot rule out a mass in the medial right base.
--- NOTE | 2017-04-26 23:58 | PROGRESS NOTE E ---
Progress Note NAME: ELEONORA SHEFFIELD : 1960 AGE: 56Y DATE: 04/26/2017 ROOM: 334 SUBJECTIVE: The patient still continues to wear CPAP/BiPAP for sleep apnea intermittently. He denies any chest pain or discomfort and he has orthopnea, but no PND. His leg edema is slightly better, but has chronic changes in his leg. He also states that he *------* but he passes stools, he has severe pain. He is anxious to go to the rehabilitation center and wants to do it immediately. He continues to be in atrial fibrillation with ventricular response of 90 beats/minute. There is no bleeding on Eliquis. There is no TIA or CVA symptoms. I discussed with nurse to contact Dr. Ny and tell him that the patient is very anxious to get to the rehab center. OBJECTIVE: GENERAL: The patient is morbidly obese and seems to be in no acute distress except for being a little agitated to be sent as soon as possible to the rehab center. He is morbid obese. VITAL SIGNS: He is afebrile with temperature of 98.2 degrees Fahrenheit. Pulse is 90 beats/minute. Blood pressure 111/71. Respirations are 20 per minute. O2 sats are 90% on 4L nasal cannula. Intermittently, the patient uses CPAP/BiPAP. HEENT: Head is normocephalic, atraumatic. Eyes: Pupils are round, regular, reactive to light and accommodation. Extraocular movements are normal. There is no scleral icterus. ENT is negative. NECK: Supple without any lymphadenopathy. Carotids are equal without any bruit. Trachea is central. There is no cervical or axillary lymphadenopathy. There is no JVD. LUNGS: Respirations are nonlabored. There is diminished air entry and prolonged expiration due to COPD. There is no rhonchi, rales or wheezing. On percussion, there is hyperresonance. CHEST: Palpation of the chest shows no chest wall tenderness. HEART: S1 and S2 is heard. S1 is of variable intensity. There is no S3 gallop. There is no S4 gallop. There is a systolic murmur in the left sternal border in the apex. There are no rubs. ABDOMEN: Obese, nontender. There is no hepatosplenomegaly. Bowel sounds are well heard. EXTREMITIES: Pedal pulses are diminished. Femorals are diminished without any bruits. There is no clubbing or cyanosis. There is trace pedal edema, but with chronic venous stasis changes and ichthyosis. There is no cellulitis. CENTRAL NERVOUS SYSTEM: The patient is conscious, awake, alert, oriented x3 with no focal deficits. PSYCHIATRIC: The patient seems to be agitated, but his judgment and insight are intact. 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 The patient does have sacral decubitus ulcer. The patient's intake and output is not accurate. LABORATORY DATA: The patient's sodium is 140.5, potassium is 5.2, chloride 102, CO2 is 32. The patient's BUN is 30, creatinine is 1.29. GFR is greater than 60. The patient's white count is 5500, hemoglobin is 10.6, hematocrit is 32.8, platelet count is 230,000. IMPRESSION: 1. CHRONIC ATRIAL FIBRILLATION AT PRESENT RATE FAIRLY WELL CONTROLLED. THE PATIENT IS ON ELIQUIS AND ALSO ON METOPROLOL. 2. [id number] RESPIRATORY FAILURE WITH HYPERCAPNIA, WHICH IS NOW STABLE. THE PATIENT HAS CHRONIC RESPIRATORY FAILURE, BUT IS ASYMPTOMATIC. 3. CONGESTIVE HEART FAILURE, ETIOLOGY OF WHICH IS NOT CLEAR. IT COULD BE DUE TO ATRIAL FIBRILLATION WITH RAPID VENTRICULAR RESPONSE AND DIASTOLIC DYSFUNCTION. AT PRESENT THE PATIENT SEEMS TO BE COMPENSATED, BUT SEEMS TO BE MORE *------* WITH LEG EDEMA, WHICH IS ALSO NOW COMPENSATED. 4. MORBID OBESITY. 5. OBSTRUCTIVE SLEEP APNEA. 6. COPD, AT PRESENT SEEMS TO BE COMPENSATED. Continue the patient's aspirin and Eliquis. Continue metoprolol. Continue simvastatin for hyperlipidemia and continue respiratory treatments. The patient is also on Demadex. 7. SACRAL DECUBITUS ULCER. Need local wound care. The patient is very anxious to go to the rehab center. I have asked the nurse to call Dr. Ny to transfer the patient there as soon as we get a bed. Note 30 minutes spent on this patient with more than 50% of the time spent on direct patient care. Medications have been reviewed and I have tried to calm the patient down, but I will send a message to Dr. Ny. The patient is still is of moderate complexity. Since the patient is going to be discharged, we will sign off the case. DICTATING PHYSICIAN: FOUZIA DO M.D. [id number] PHY#: [id number] ID: [id number] JOB#: [id number] ACCT: [id number] cc: >
[2017-04-27] MEDS: LANSOPRAZOLE 30 MG TAB.RAP.DR PO SCH (05:27)
[2017-04-27] MEDS: ROFLUMILAST 500 MCG TABLET PO SCH (10:09)
[2017-04-27] MEDS: METOPROLOL SUCCINATE 25 MG TAB.SR.24H PO SCH (10:09)
[2017-04-27] MEDS: TORSEMIDE 20 MG TABLET PO SCH (10:09)
[2017-04-27] MEDS: ASPIRIN 81 MG TABLET, ENT COATED PO SCH (10:09)
[2017-04-27] MEDS: APIXABAN 2.5 MG TABLET PO SCH (10:09)
[2017-04-27] MEDS: MINERAL OIL/PETROLATUM,WHITE CREAM 114 GM TP SCH (10:12)
[2017-04-27 18:38] VITALS: BP 115/66
== END 2017-04-27 18:30 | DRG 291 ==
LOC: ER 14:56 → UNDOADMIN 17:45 → EH 17:45 → 5 19:05 → EH 19:05 → 5 19:24 → EH 19:24 → 3S 21:36
PROVIDERS: ADMIT Internal Medicine; ATTEND Internal Medicine
DX: I13.0 Hypertensive heart and chronic kidney disease with heart failure and stage 1 through stage 4 chronic kidney disease, or unspecified chronic kidney disease (principal); I50.43 Acute on chronic combined systolic (congestive) and diastolic (congestive) heart failure; J96.22 Acute and chronic respiratory failure with hypercapnia; J96.21 Acute and chronic respiratory failure with hypoxia; Z66 Do not resuscitate; E87.2 Acidosis; N17.9 Acute kidney failure, unspecified; E66.2 Morbid (severe) obesity with alveolar hypoventilation; Z68.43 Body mass index [BMI] 50.0-59.9, adult; L97.828 Non-pressure chronic ulcer of other part of left lower leg with other specified severity; I48.2 Chronic atrial fibrillation; I25.10 Atherosclerotic heart disease of native coronary artery without angina pectoris; E78.5 Hyperlipidemia, unspecified; I73.9 Peripheral vascular disease, unspecified; J44.9 Chronic obstructive pulmonary disease, unspecified; D64.9 Anemia, unspecified; K29.70 Gastritis, unspecified, without bleeding; L28.0 Lichen simplex chronicus; L89.152 Pressure ulcer of sacral region, stage 2; F17.210 Nicotine dependence, cigarettes, uncomplicated; Z86.711 Personal history of pulmonary embolism
CPT/HCPCS: 36415; 36600; 71010; 80053; 82550; 82553; 82803; 83880; 84484; 85025; 85610; 85730; 90686; 93005; 93010; 94660; 94667; 94668; 94799; 96374; 99291; J1250; J1650; J1940; J3490; J7620; S0119

== ENCOUNTER 2017-05-29 17:46 | Inpatient (IN) | payer OTHER, MEDICARE, MEDICAID ==
--- NOTE | 2017-05-29 18:05 | ER Document Report ---
ED Respiratory Problem - General Stated Complaint: DIFFICULTY BREATHING Time Seen by Provider: 05/29/17 17:54 Mode of Arrival: Stretcher Information source: Patient, Emergency Med Personnel TRAVEL OUTSIDE OF THE [place] IN LAST 30 DAYS: No - HPI Patient complains to provider of: CHF, Short of breath Onset: Yesterday Duration: Worse/persistent Quality of pain: No pain Context: Hx CHF Short of Breath: Moderate Chest pain/discomfort: Tightness Cough: Nonproductive Associated symptoms: Difficulty breathing, Extertional dyspnea, Short of breath Similar symptoms previously: Yes Recently seen / treated by doctor: Yes Notes: Patient is a 56-year-old male brought to the emergency room by EMS on CPAP for complaints of respiratory issues that started yesterday evening, states that he does out in his house, he has had increased swelling and weight gain of 30 pounds over the last few weeks, he was just discharged home from [facility] yesterday where he stayed for approximately 1 month for rehab, states he was discharged with BiPAP and oxygen for home use but did not know how to use it, he denies any fevers, no chest pain, no cough, cold or congestion, has a history of CHF, atrial fibrillation, morbid obesity and pulmonary embolism, currently taking Eliquis - Related Data Allergies/Adverse Reactions: No Known Allergies Allergy (Verified 07/28/16 09:39) Past Medical History - General Information source: Patient - Social History Smoking Status: Former Smoker Family History: CAD, COPD, CVA, DM, Hypertension - Past Medical History Cardiac Medical History: Reports: Hx Atrial Fibrillation, Hx Congestive Heart Failure, Hx Coronary Artery Disease, Hx Hypercholesterolemia, Hx Hypertension, Hx Peripheral Vascular Disease, Hx Pulmonary Embolism Pulmonary Medical History: Reports: Hx COPD, Hx Sleep Apnea Renal/ Medical History: Reports: Hx Renal Insufficiency. Denies: Hx Peritoneal Dialysis GI Medical History: Reports: Hx Gastritis, Hx Ulcerative Colitis Musculoskeltal Medical History: Reports Hx Arthritis Psychiatric Medical History: Reports: Hx Depression Past Surgical History: Reports: Hx Tonsillectomy, Other - Tooth extraction - Immunizations Hx Diphtheria, Pertussis, Tetanus Vaccination: No Review of Systems - Review of Systems Constitutional: Weight gain EENT: No symptoms reported Cardiovascular: Edema Respiratory: See HPI Gastrointestinal: No symptoms reported Genitourinary: No symptoms reported Male Genitourinary: No symptoms reported Musculoskeletal: No symptoms reported Skin: No symptoms reported Hematologic/Lymphatic: No symptoms reported Neurological/Psychological: No symptoms reported -: Yes All other systems reviewed and negative Physical Exam - Vital signs Vitals: Resp Pulse Ox 16 95 05/29/17 17:56 05/29/17 17:56 Interpretation: Normal - General General appearance: Alert In distress: Mild - HEENT Head: Normocephalic, Atraumatic Eyes: Normal Conjunctiva: Normal Extraocular movements intact: Yes Eyelashes: Normal Pupils: PERRL - Respiratory Respiratory status: Labored, Tachypnea Chest status: Nontender Breath sounds: Rales Chest palpation: Normal - Cardiovascular Heart sounds: Normal auscultation - Abdominal Inspection: Morbidly Obese Distension: No distension Bowel sounds: Normal Tenderness: Nontender - Back Back: Normal, Nontender - Extremities General lower extremity: Edema - Neurological Neuro grossly intact: Yes Cognition: Normal Orientation: AAOx4 Luc Coma Scale Eye Opening: Spontaneous Luc Coma Scale Verbal: Oriented Luc Coma Scale Motor: Obeys Commands [place] Coma Scale Total: 15 - Psychological Associated symptoms: Normal affect, Normal mood - Skin Skin Temperature: Warm Skin Moisture: Dry Skin Color: Normal Course - Re-evaluation Re-evalutation: 05/29/17 20:[address] Edwards who agrees to admit for Dr. Ny 05/29/17 23:14 Findings are consistent with congestive heart failure exacerbation, requiring BiPAP placement and admission to the hospital - Vital Signs Vital signs: Temp Pulse Resp BP Pulse Ox 98.3 F 105 H 23 H 139/93 H 92 05/29/17 18:01 05/29/17 18:01 05/29/17 20:16 05/29/17 22:21 05/29/17 22:21 - Laboratory Result Diagrams: 05/29/17 18:10 05/29/17 18:10 Laboratory results interpreted by me: 05/29/17 05/29/17 05/29/17 18:10 18:10 18:10 Hgb 12.1 L Hct 37.0 L RDW 18.4 H Lymphocytes % 12.4 L PT 21.0 H APTT 39.5 H Sodium 146.4 H Creatinine 1.40 H Est GFR (Non-Af Amer) 53 L Total Bilirubin 4.3 H Direct Bilirubin 1.9 H Creatine Kinase 178 H NT-Pro-B Natriuret Pep Urine Protein Urine Urobilinogen 05/29/17 05/29/17 18:10 18:20 Hgb Hct RDW Lymphocytes % PT APTT Sodium Creatinine Est GFR (Non-Af Amer) Total Bilirubin Direct Bilirubin Creatine Kinase NT-Pro-B Natriuret Pep 61311 H Urine Protein >=500 H Urine Urobilinogen 4.0 H - Diagnostic Test Radiology reviewed: Image reviewed, Reports reviewed - EKG Interpretation by Me Rate: Normal Rhythm: A.Fib, PVC's Critical Care Note - Critical Care Note Total time excluding time spent on procedures (mins): 40 Comments: Acute CHF exacerbation with respiratory distress and hypoxia requiring BiPAP placement and admission to the [facility] Discharge - Discharge Clinical Impression: Acute exacerbation of CHF (congestive heart failure) Qualifiers: Congestive heart failure type: unspecified congestive heart failure type Qualified Code(s): I50.9 - Heart failure, unspecified Condition: Serious Disposition: ADMITTED INPATIENT Admitting Provider: Yanely Unit Admitted: [facility]
[2017-05-29 18:25] LABS: VENOUS BLOOD HCO3 27.3 mmol/L (20-32); VENOUS BLOOD PCO2 56.4 mmHg (35-63); VENOUS BLOOD PH 7.3 (7.30-7.42)
[2017-05-29 18:28] LABS: ABSOLUTE BASOPHILS # (AUTO) 0.1 10^3/uL (0.0-0.2); ABSOLUTE EOSINOPHILS # (AUTO) 0.1 10^3/uL (0.0-0.6); ABSOLUTE LYMPHOCYTES (AUTO) 0.7 10^3/uL (0.5-4.7); ABSOLUTE MONOCYTES (AUTO) 0.6 10^3/uL (0.1-1.4); ABSOLUTE NEUT (AUTO) 4.4 10^3/uL (1.7-8.2); BASOPHILS % (AUTO) 1.5 % (0-2); EOSINOPHILS % (AUTO) 1.1 % (0-6); HEMOGLOBIN 12.1 g/dL (13.5-17.0); HGB HCT DIFFERENCE -0.7; LYMPHOCYTES % (AUTO) 12.4 % (13-45); MEAN CORPUSCULAR HEMOGLOBIN 27.5 pg (27.0-33.4); MEAN CORPUSCULAR HGB CONC 32.6 g/dL (32.0-36.0); MEAN CORPUSCULAR VOLUME 84 fl (80-97); MONOCYTES % (AUTO) 10.9 % (3-13); RED BLOOD COUNT 4.39 10^6/uL (4.35-5.55); RED CELL DISTRIBUTION WIDTH 18.4 % (11.5-14.0); SEGMENTED NEUTROPHILS % (AUTO) 74.1 % (42-78); WHITE BLOOD COUNT 5.9 10^3/uL (4.0-10.5)
[2017-05-29 18:41] LABS: PARTIAL THROMBOPLASTIN TIME 39.5 SEC (23.5-35.8)
[2017-05-29 18:43] LABS: ALANINE AMINOTRANSFERASE 21 U/L (21-72); ALBUMIN 3.9 g/dL (3.5-5.0); ALKALINE PHOSPHATASE 81 U/L (38-126); ANION GAP 17 (5-19); ASPARTATE AMINO TRANSFERASE 20 U/L (17-59); BILIRUBIN,DIRECT 1.9 mg/dL (0.0-0.4); BILIRUBIN,TOTAL 4.3 mg/dL (0.2-1.3); BLOOD UREA NITROGEN 19 mg/dL (7-20); CALCIUM 9.3 mg/dL (8.4-10.2); CARBON DIOXIDE 24 mmol/L (22-30); CHLORIDE 105 mmol/L (98-107); CREATINE KINASE 178 U/L (55-170); GLUCOSE 83 mg/dL (75-110); POTASSIUM 3.8 mmol/L (3.6-5.0); SODIUM 146.4 mmol/L (137-145); TOTAL PROTEIN 7.5 g/dL (6.3-8.2)
[2017-05-29 18:55] LABS: CREATINE KINASE MB 2.31 ng/mL (<4.55)
[2017-05-29 19:00] LABS: TROPONIN I 0.038 ng/mL
[2017-05-29 19:06] LABS: BILIRUBIN,URINE NEGATIVE (NEGATIVE); GLUCOSE, URINE NEGATIVE (NEGATIVE); KETONES,URINE NEGATIVE (NEGATIVE); LEUKOCYTE ESTERASE,URINE NEGATIVE (NEGATIVE); NITRITE,URINE NEGATIVE (NEGATIVE); PROTEIN,URINE >=500 mg/dL (NEGATIVE); URINE SPECIFIC GRAVITY 1.015
[2017-05-29] MEDS ORDERED: FUROSEMIDE INJ/PF 40 MG/4 ML SDV IV ONE (19:08)
[2017-05-29 19:09] LABS: APPEARANCE,URINE HAZY
--- NOTE | 2017-05-29 19:43 | RADIOLOGY REPORT (SQ) ---
EXAM DESCRIPTION: CHEST SINGLE VIEW COMPLETED DATE/TIME: 05/29/2017 7:30 pm REASON FOR STUDY: DB COMPARISON: None. NUMBER OF VIEWS: One view. TECHNIQUE: Single frontal radiographic view of the chest acquired. LIMITATIONS: Limited study due to the patient's body habitus. FINDINGS: LUNGS AND PLEURA: Right basilar density, difficult to assess due to overlying cardiac silh [place]. Right pleural effusion. MEDIASTINUM AND HILAR STRUCTURES: No masses or contour abnormality. HEART AND VASCULATURE: Cardiac enlargement. Vascular congestion. BONES: No acute findings. HARDWARE: None in the chest. OTHER: No other significant finding. IMPRESSION: CARDIAC ENLARGEMENT. VASCULAR CONGESTION. RIGHT BASILAR ATELECTASIS OR INFILTRATE WITH PLEURAL EFFUSION. TECHNICAL DOCUMENTATION: JOB ID: [id number] [employer]- All Rights Reserved
[2017-05-30] MEDS: LANSOPRAZOLE 15 MG TAB.RAP.DR PO SCH (05:41)
--- NOTE | 2017-05-30 09:17 | EKG REPORT ---
SEVERITY:- ABNORMAL ECG - ATRIAL FIBRILLATION INFERIOR INFARCT, OLD CONSIDER ANTERIOR INFARCT LATERAL LEADS ARE ALSO INVOLVED BORDERLINE PROLONGED QT INTERVAL : Confirmed by: Nara Ferrari 30-May-2017 09:16:49
[2017-05-30] MEDS: METOPROLOL SUCCINATE 25 MG TAB.SR.24H PO SCH (09:33)
[2017-05-30] MEDS: LISINOPRIL 10 MG TABLET PO SCH (09:33)
[2017-05-30] MEDS: FUROSEMIDE INJ/PF 40 MG/4 ML SDV IV SCH (09:34)
[2017-05-30] MEDS: APIXABAN 2.5 MG TABLET PO SCH ×2 (09:34→17:01)
--- NOTE | 2017-05-30 14:45 | PDOC H&P ---
History of Present Illness Admission Date/PCP: 05/29/17 20:16 ZOYA LEONE MD Patient complains of: Difficulty with breathing History of Present Illness: ELEONORA SHEFFIELD is a 56 year old male patient of Dr Leone who was brought to the ED by EMS due to worsening difficulty with breathing and excessive weight gain. He was discharged from local SNF couple of days ago. He admitted to inability to fill one of his prescription particularly a diuretic and have been off the medication for about 2 days prior to his presentation to the ED. Patient admitted to less compliance with fluid intake restrictions. His associated symptoms include orthopnea for which he slept in recliner chair with resultant swelling in his legs, exertional dyspnea with limitation in level of functioning to almost bedbound, felling of chest tightness and nonproductive coughing. He denied any chest pain, fever, chills, dysuria, or flank pain. No abdominal pain, nausea or vomiting. He arrived in the ED on CPAP support. His initial assessment in the ED revealed cardiology with vascular congestion and right sided atelectasis as well as pleural effusion on chest X ray. His NT-Pro- BNP was elevated. His morbidities include Chronic Atrial Fibrillation, Congestive Heart Failure, Coronary Artery Disease, Hypertension, Hypercholesterolemia, Peripheral Vascular Disease, Pulmonary Embolism, COPD, Obstructive Sleep Apnea, Renal Insufficiency, Gastritis, Ulcerative Colitis, Osteoarthritis, and Depression. He was advised hospitalization due to his presentation, clinical findings, and laboratory assessment findings. Past Medical History Cardiac Medical History: Reports: Atrial Fibrillation, Congestive Heart Failure , Coronary Artery Disease, Hyperlipidema, Hypertension, Peripheral Vascular Disease, Pulmonary Embolism Pulmonary Medical History: Reports: Chronic Obstructive Pulmonary Disease (COPD) , Sleep Apnea GI Medical History: Reports: Ulcerative Colitis Musculoskeltal Medical History: Reports: Arthritis Psychiatric Medical History: Reports: Depression Past Surgical History Past Surgical History: Reports: Tonsillectomy, Other - Tooth extraction Social History Smoking Status: Former Smoker Frequency of Alcohol Use: None Hx Recreational Drug Use: No Drugs: None Hx Prescription Drug Abuse: No - Advance Directive Resuscitation Status: Full Code Family History Family History: CAD, COPD, CVA, DM, Hypertension Parental Family History Reviewed: Yes Children Family History Reviewed: Yes Sibling(s) Family History Reviewed.: Yes Medication/Allergy Home Medications: Lisinopril [Prinivil] 20 mg PO DAILY 04/18/17 Simvastatin [Zocor 10 mg Tablet] 10 mg PO QPM 04/18/17 Apixaban [Eliquis 2.5 mg Tablet] 2.5 mg PO BID tablet 04/26/17 Metoprolol Succinate [Toprol Xl 25 mg Tab.sr] 25 mg PO DAILY tab.sr.24h Torsemide [Demadex 20 mg Tablet] 10 mg PO DAILY tablet 04/26/17 Omeprazole 20 mg PO DAILY 05/29/17 Allergies/Adverse Reactions: No Known Allergies Allergy (Verified 07/28/16 09:39) Review of Systems Constitutional: PRESENT: weakness, weight gain. ABSENT: anorexia, chills, fatigue, fever(s), headache(s), night sweats, weight loss, other Ears: ABSENT: hearing changes, other Nose, Mouth, and Throat: ABSENT: as per HPI, headache(s), mouth pain, sore throat, vertigo, other Cardiovascular: PRESENT: edema - bilateral, 3+ to above knee level Respiratory: PRESENT: cough - nonproductive, dyspnea - with exertion Gastrointestinal: ABSENT: abdominal pain, constipation, diarrhea, hematemesis, hematochezia, nausea, vomiting Genitourinary: ABSENT: dysuria, hematuria Musculoskeletal: PRESENT: joint swelling - bilateral lower extremities Integumentary: PRESENT: wounds - chronic, on feet Neurological: PRESENT: weakness - generalized. ABSENT: as per HPI, abnormal gait, abnormal movements, abnormal speech, confusion, convulsions, dizziness, focal weakness, frequent falls, lack of coordination, memory loss, numbness, paresthesias, restless legs, syncope, tingling, tremor(s), vertigo, other Psychiatric: ABSENT: anxiety, depression, homidical ideation, suicidal ideation Endocrine: ABSENT: cold intolerance, heat intolerance, menstrual abnormalities, polydipsia, polyuria Hematologic/Lymphatic: ABSENT: easy bleeding, easy bruising, lymphadenopathy Allergic/Immunologic: ABSENT: as per HPI, seasonal rhinorrhea, other Physical Exam Vital Signs: Temp Pulse Resp BP Pulse Ox 97.8 F 122 H 30 H 142/86 H 100 05/30/17 12:12 05/30/17 12:12 05/30/17 12:12 05/30/17 12:12 05/30/17 12:12 Intake & Output 05/29/17 05/30/17 05/31/17 06:59 06:59 06:59 Intake Total 400 704 Balance 400 704 Weight 168 kg General appearance: PRESENT: cooperative, morbidly obese, other - on BiPAP support presently Head exam: PRESENT: atraumatic, normocephalic Eye exam: PRESENT: conjunctiva pink, EOMI, PERRLA. ABSENT: scleral icterus Ear exam: PRESENT: normal external ear exam Mouth exam: PRESENT: moist Teeth exam: PRESENT: poor dentation Throat exam: ABSENT: post pharyngeal erythema, tonsillar erythema, tonsillar exudate, tonsillogmegaly, other Neck exam: PRESENT: full ROM. ABSENT: carotid bruit, JVD, lymphadenopathy, thyromegaly Respiratory exam: PRESENT: crackles, decreased breath sounds Cardiovascular exam: PRESENT: irregular rhythm. ABSENT: diastolic murmur, rubs , systolic murmur Vascular exam: PRESENT: normal capillary refill. ABSENT: pallor GI/Abdominal exam: PRESENT: ascites - probably related to adipose tissue in abdominal wall., normal bowel sounds, soft. ABSENT: distended, guarding, mass, organolmegaly, rebound, tenderness Rectal exam: PRESENT: deferred Gentrourinary exam: PRESENT: scrotal swelling, indwelling catheter Extremities exam: PRESENT: pedal edema Musculoskeletal exam: PRESENT: ambulatory - Not able to even adequately position his legs on the bed at home. Patient reported sleeping in recliner chair., deformity Neurological exam: PRESENT: alert, awake - and appropriate in simple reponsivenses, CN II-XII grossly intact, motor sensory deficit Psychiatric exam: PRESENT: appropriate affect, normal mood. ABSENT: homicidal ideation, suicidal ideation Results Impressions: Chest X-Ray 05/29/17 18:01 IMPRESSION: CARDIAC ENLARGEMENT. VASCULAR CONGESTION. RIGHT BASILAR ATELECTASIS OR INFILTRATE WITH PLEURAL EFFUSION. Assessment & Plan - Diagnosis (1) Acute on chronic combined systolic (congestive) and diastolic (congestive) heart failure Is this a current diagnosis for this admission?: Yes Plan: See attending physician orders. (2) Anasarca Is this a current diagnosis for this admission?: Yes Plan: See attending physician orders. (3) Chronic atrial fibrillation Is this a current diagnosis for this admission?: Yes Plan: See attending physician orders. - Time Time Spent: 50 to 70 Minutes Medications reviewed and adjusted accordingly: Yes Anticipated discharge: SNF Within: Other - Inpatient Certification Medical Necessity: Need Close Monitoring Due to Risk of Patient Decompensation, Need For Continuous Telemetry Monitoring, Risk of Complication if Not Cared For in Hospital Post Hospital Care: D/C or Transfer Summary - Plan Summary Plan Summary: See attending physician orders.
[2017-05-30] MEDS: IPRATROPIUM/ALBUTEROL 0.5-2.5 MG/3 ML AMPUL NEB PRN (16:05)
[2017-05-30] MEDS: SIMVASTATIN 10 MG TABLET PO SCH (22:31)
[2017-05-31] MEDS: IPRATROPIUM/ALBUTEROL 0.5-2.5 MG/3 ML AMPUL NEB PRN ×3 (00:59→20:14)
[2017-05-31] MEDS: LANSOPRAZOLE 15 MG TAB.RAP.DR PO SCH (05:38)
[2017-05-31 07:04] LABS: ABSOLUTE EOSINOPHILS # (AUTO) 0.3 10^3/uL (0.0-0.6); ABSOLUTE LYMPHOCYTES (AUTO) 0.9 10^3/uL (0.5-4.7); ABSOLUTE MONOCYTES (AUTO) 0.5 10^3/uL (0.1-1.4); ABSOLUTE NEUT (AUTO) 2.5 10^3/uL (1.7-8.2); BASOPHILS % (AUTO) 0.7 % (0-2); EOSINOPHILS % (AUTO) 6.6 % (0-6); HEMATOCRIT 31.4 % (37.9-51.0); HEMOGLOBIN 10.1 g/dL (13.5-17.0); HGB HCT DIFFERENCE -1.1; MEAN CORPUSCULAR HEMOGLOBIN 27.3 pg (27.0-33.4); MEAN CORPUSCULAR HGB CONC 32.4 g/dL (32.0-36.0); MEAN CORPUSCULAR VOLUME 84 fl (80-97); MONOCYTES % (AUTO) 12.6 % (3-13); RED BLOOD COUNT 3.72 10^6/uL (4.35-5.55); RED CELL DISTRIBUTION WIDTH 18.2 % (11.5-14.0); SEGMENTED NEUTROPHILS % (AUTO) 58.1 % (42-78); WHITE BLOOD COUNT 4.3 10^3/uL (4.0-10.5)
[2017-05-31 07:28] LABS: ALANINE AMINOTRANSFERASE 24 U/L (21-72); ALBUMIN 3.2 g/dL (3.5-5.0); ALKALINE PHOSPHATASE 59 U/L (38-126); ANION GAP 12 (5-19); ASPARTATE AMINO TRANSFERASE 16 U/L (17-59); BILIRUBIN,DIRECT 1.5 mg/dL (0.0-0.4); BILIRUBIN,TOTAL 2.6 mg/dL (0.2-1.3); BLOOD UREA NITROGEN 18 mg/dL (7-20); CALCIUM 8.8 mg/dL (8.4-10.2); CARBON DIOXIDE 28 mmol/L (22-30); CHLORIDE 105 mmol/L (98-107); CREATININE RESULT 1.27 mg/dL (0.52-1.25); GLUCOSE 82 mg/dL (75-110); POTASSIUM 3.5 mmol/L (3.6-5.0); SODIUM 145.2 mmol/L (137-145); TOTAL PROTEIN 6.6 g/dL (6.3-8.2)
[2017-05-31] MEDS: LISINOPRIL 10 MG TABLET PO SCH (09:33)
[2017-05-31] MEDS: METOPROLOL SUCCINATE 25 MG TAB.SR.24H PO SCH (09:33)
[2017-05-31] MEDS: FUROSEMIDE INJ/PF 40 MG/4 ML SDV IV SCH (09:34)
[2017-05-31] MEDS: APIXABAN 2.5 MG TABLET PO SCH ×2 (09:34→17:46)
--- NOTE | 2017-05-31 20:22 | PDOC PROGRESS REPORT ---
Subjective Progress Note for:: 05/31/17 Subjective:: Patient was just discharged [facility] the [facility] on Wednesday, he was discharged home with noninvasive positive pressure ventilation BiPAP ,he came to the emergency room because of shortness of breath, unable to take care of himself. The last time he was discharged from the hospital he was transferred to the [facility] for rehab and for possible long-term care but he insisted on being discharged to his private residence only for him to turn around and return to the emergency room for the same problems. He has chronic comorbid conditions including chronic diastolic heart failure, morbid obesity, nephrotic syndrome, chronic venous hypertension ,at this stage of his disease hospice consult will be requested Physical Exam Vital Signs: Temp Pulse Resp BP Pulse Ox 98.5 F 91 19 120/73 99 05/31/17 16:38 05/31/17 16:38 05/31/17 16:38 05/31/17 16:38 05/31/17 16:38 Intake & Output 05/30/17 05/31/17 06/01/17 06:59 06:59 06:59 Intake Total 400 1393 621 Balance 400 1393 621 Weight 168 kg 164.8 kg 164.8 kg General appearance: PRESENT: no acute distress Eye exam: PRESENT: PERRLA Respiratory exam: PRESENT: decreased breath sounds Cardiovascular exam: PRESENT: +S1, +S2 GI/Abdominal exam: PRESENT: soft Neurological exam: PRESENT: alert Results Laboratory Results: 05/31/17 05:48 05/31/17 05:48 05/31/17 05/31/17 05:48 05:48 WBC 4.3 RBC 3.72 L Hgb 10.1 L Hct 31.4 L MCV 84 MCH 27.3 MCHC 32.4 RDW 18.2 H Plt Count 133 L Seg Neutrophils % 58.1 Lymphocytes % 22.0 Monocytes % 12.6 Eosinophils % 6.6 H Basophils % 0.7 Absolute Neutrophils 2.5 Absolute Lymphocytes 0.9 Absolute Monocytes 0.5 Absolute Eosinophils 0.3 Absolute Basophils 0.0 Sodium 145.2 H Potassium 3.5 L Chloride 105 Carbon Dioxide 28 Anion Gap 12 BUN 18 Creatinine 1.27 H Est GFR ( Amer) > 60 Est GFR (Non-Af Amer) 59 L Glucose 82 Calcium 8.8 Total Bilirubin 2.6 H AST 16 L ALT 24 Alkaline Phosphatase 59 Total Protein 6.6 Albumin 3.2 L 05/30/17 05:50 Nasophary ([facility] Only) MRSA Surveillance Culture - Final NO MRSA RECOVERED Impressions: Chest X-Ray 05/29/17 18:01 IMPRESSION: CARDIAC ENLARGEMENT. VASCULAR CONGESTION. RIGHT BASILAR ATELECTASIS OR INFILTRATE WITH PLEURAL EFFUSION. Assessment & Plan - Diagnosis (1) A-fib Qualifiers: Atrial fibrillation type: chronic Qualified Code(s): I48.2 - Chronic atrial fibrillation Is this a current diagnosis for this admission?: Yes (2) Acute diastolic heart failure Is this a current diagnosis for this admission?: Yes (3) Acute on chronic combined systolic (congestive) and diastolic (congestive) heart failure Is this a current diagnosis for this admission?: Yes (4) Acute respiratory failure Qualifiers: Respiratory failure complication: hypoxia and hypercapnia Qualified Code(s) : J96.01 - Acute respiratory failure with hypoxia; J96.02 - Acute respiratory failure with hypercapnia; J96.02 - Acute respiratory failure with hypercapnia; J96.02 - Acute respiratory failure with hypercapnia Is this a current diagnosis for this admission?: Yes (5) Anasarca Is this a current diagnosis for this admission?: Yes (7) Bilateral leg ulcer Is this a current diagnosis for this admission?: Yes (9) Chronic atrial fibrillation with rapid ventricular response Is this a current diagnosis for this admission?: Yes - Plan Summary Plan Summary: Consultation from hospice is ordered
[2017-05-31] MEDS: SIMVASTATIN 10 MG TABLET PO SCH (21:32)
[2017-06-01] MEDS: LANSOPRAZOLE 15 MG TAB.RAP.DR PO SCH (06:13)
[2017-06-01] MEDS: FUROSEMIDE INJ/PF 40 MG/4 ML SDV IV SCH (10:46)
[2017-06-01] MEDS: LISINOPRIL 10 MG TABLET PO SCH (10:46)
[2017-06-01] MEDS: METOPROLOL SUCCINATE 25 MG TAB.SR.24H PO SCH (10:46)
[2017-06-01] MEDS: APIXABAN 2.5 MG TABLET PO SCH ×2 (10:47→17:34)
--- NOTE | 2017-06-01 18:42 | PDOC PROGRESS REPORT ---
Subjective Progress Note for:: 06/01/17 Subjective:: I had a long discussion with the patient today about hospice option, he was seen by discharge planning, he was given different options because clearly it seems that patient cannot stay by himself because of his medical conditions , he will need assistance of some sort Physical Exam Vital Signs: Temp Pulse Resp BP Pulse Ox 97.9 F 80 16 117/84 95 06/01/17 12:28 06/01/17 17:00 06/01/17 17:00 06/01/17 12:28 06/01/17 12:47 Intake & Output 05/31/17 06/01/17 06/02/17 06:59 06:59 06:59 Intake Total 1393 971 665 Balance 1393 971 665 Weight 164.8 kg 164.8 kg General appearance: PRESENT: mild distress Head exam: PRESENT: atraumatic, normocephalic Eye exam: PRESENT: PERRLA. ABSENT: scleral icterus Mouth exam: PRESENT: moist, tongue midline Respiratory exam: PRESENT: clear to auscultation dell Cardiovascular exam: PRESENT: RRR, +S1, +S2 Pulses: PRESENT: normal dorsalis pedis pul, +2 pedal pulses bilateral Vascular exam: PRESENT: normal capillary refill GI/Abdominal exam: PRESENT: normal bowel sounds, soft Rectal exam: PRESENT: deferred Neurological exam: PRESENT: alert Psychiatric exam: PRESENT: appropriate affect, normal mood Skin exam: PRESENT: dry, intact, warm. ABSENT: cyanosis, rash Results Laboratory Results: 05/31/17 05:48 05/31/17 05:48 Impressions: Chest X-Ray 05/29/17 18:01 IMPRESSION: CARDIAC ENLARGEMENT. VASCULAR CONGESTION. RIGHT BASILAR ATELECTASIS OR INFILTRATE WITH PLEURAL EFFUSION. Assessment & Plan - Diagnosis (1) A-fib Qualifiers: Atrial fibrillation type: chronic Qualified Code(s): I48.2 - Chronic atrial fibrillation Is this a current diagnosis for this admission?: Yes (2) Acute diastolic heart failure Is this a current diagnosis for this admission?: Yes (3) Acute on chronic combined systolic (congestive) and diastolic (congestive) heart failure Is this a current diagnosis for this admission?: Yes (4) Acute respiratory failure Qualifiers: Respiratory failure complication: hypoxia and hypercapnia Qualified Code(s) : J96.01 - Acute respiratory failure with hypoxia; J96.02 - Acute respiratory failure with hypercapnia; J96.02 - Acute respiratory failure with hypercapnia; J96.02 - Acute respiratory failure with hypercapnia Is this a current diagnosis for this admission?: Yes (5) Anasarca Is this a current diagnosis for this admission?: Yes (6) Atrial fibrillation with controlled ventricular response Is this a current diagnosis for this admission?: Yes (7) Bilateral leg ulcer Is this a current diagnosis for this admission?: Yes (8) Body mass index 50.0-59.9, adult Is this a current diagnosis for this admission?: Yes (9) Chronic atrial fibrillation with rapid ventricular response Is this a current diagnosis for this admission?: Yes (10) Chronic cutaneous venous stasis ulcer Is this a current diagnosis for this admission?: Yes
[2017-06-01] MEDS: SIMVASTATIN 10 MG TABLET PO SCH (23:10)
[2017-06-02] MEDS: LANSOPRAZOLE 15 MG TAB.RAP.DR PO SCH (05:28)
[2017-06-02] MEDS: APIXABAN 2.5 MG TABLET PO SCH ×2 (10:55→17:42)
[2017-06-02] MEDS: FUROSEMIDE INJ/PF 40 MG/4 ML SDV IV SCH (10:55)
[2017-06-02] MEDS: METOPROLOL SUCCINATE 25 MG TAB.SR.24H PO SCH (10:55)
[2017-06-02] MEDS: LISINOPRIL 10 MG TABLET PO SCH (10:55)
[2017-06-02] MEDS: NYSTATIN TOPICAL POWDER 15 GM TP SCH ×2 (11:07→17:43)
[2017-06-02 11:38] LABS: ABSOLUTE EOSINOPHILS # (AUTO) 0.3 10^3/uL (0.0-0.6); ABSOLUTE LYMPHOCYTES (AUTO) 0.8 10^3/uL (0.5-4.7); ABSOLUTE MONOCYTES (AUTO) 0.4 10^3/uL (0.1-1.4); ABSOLUTE NEUT (AUTO) 1.8 10^3/uL (1.7-8.2); BASOPHILS % (AUTO) 1.2 % (0-2); EOSINOPHILS % (AUTO) 7.9 % (0-6); HEMATOCRIT 33.3 % (37.9-51.0); HEMOGLOBIN 11.1 g/dL (13.5-17.0); LYMPHOCYTES % (AUTO) 25.1 % (13-45); MEAN CORPUSCULAR HEMOGLOBIN 28.1 pg (27.0-33.4); MEAN CORPUSCULAR HGB CONC 33.5 g/dL (32.0-36.0); MEAN CORPUSCULAR VOLUME 84 fl (80-97); MONOCYTES % (AUTO) 11.8 % (3-13); RED BLOOD COUNT 3.96 10^6/uL (4.35-5.55); WHITE BLOOD COUNT 3.3 10^3/uL (4.0-10.5)
[2017-06-02 12:04] LABS: ANION GAP 12 (5-19); BLOOD UREA NITROGEN 16 mg/dL (7-20); CALCIUM 8.9 mg/dL (8.4-10.2); CARBON DIOXIDE 30 mmol/L (22-30); CHLORIDE 103 mmol/L (98-107); CREATININE RESULT 1.27 mg/dL (0.52-1.25); GLUCOSE 86 mg/dL (75-110); MAGNESIUM 1.8 mg/dL (1.6-2.3); POTASSIUM 3.7 mmol/L (3.6-5.0); SODIUM 144.9 mmol/L (137-145)
--- NOTE | 2017-06-02 14:49 | PDOC PROGRESS REPORT ---
Subjective Progress Note for:: 06/02/17 Subjective:: Patient seen by the bedside, disposition still a problem for this patient Physical Exam Vital Signs: Temp Pulse Resp BP Pulse Ox 97.4 F 75 16 121/73 100 06/02/17 07:45 06/02/17 14:11 06/02/17 14:11 06/02/17 07:45 06/02/17 03:33 Intake & Output 06/01/17 06/02/17 06/03/17 06:59 06:59 06:59 Intake Total 971 1185 230 Balance 971 1185 230 Weight 164.8 kg 172 kg General appearance: PRESENT: mild distress Eye exam: PRESENT: PERRLA Mouth exam: PRESENT: moist, tongue midline Neck exam: PRESENT: full ROM Respiratory exam: PRESENT: clear to auscultation dell Cardiovascular exam: PRESENT: RRR, +S1, +S2 Vascular exam: PRESENT: normal capillary refill GI/Abdominal exam: PRESENT: normal bowel sounds, soft Rectal exam: PRESENT: deferred Neurological exam: PRESENT: alert. ABSENT: motor sensory deficit Skin exam: PRESENT: dry, intact, warm Results Laboratory Results: 06/02/17 11:19 06/02/17 11:19 06/02/17 06/02/17 11:19 11:19 WBC 3.3 L RBC 3.96 L Hgb 11.1 L Hct 33.3 L MCV 84 MCH 28.1 MCHC 33.5 RDW 18.0 H Plt Count 158 Seg Neutrophils % 54.0 Lymphocytes % 25.1 Monocytes % 11.8 Eosinophils % 7.9 H Basophils % 1.2 Absolute Neutrophils 1.8 Absolute Lymphocytes 0.8 Absolute Monocytes 0.4 Absolute Eosinophils 0.3 Absolute Basophils 0.0 Sodium 144.9 Potassium 3.7 Chloride 103 Carbon Dioxide 30 Anion Gap 12 BUN 16 Creatinine 1.27 H Est GFR ( Amer) > 60 Est GFR (Non-Af Amer) 59 L Glucose 86 Calcium 8.9 Magnesium 1.8 Impressions: Chest X-Ray 05/29/17 18:01 IMPRESSION: CARDIAC ENLARGEMENT. VASCULAR CONGESTION. RIGHT BASILAR ATELECTASIS OR INFILTRATE WITH PLEURAL EFFUSION. Assessment & Plan - Diagnosis (1) A-fib Qualifiers: Atrial fibrillation type: chronic Qualified Code(s): I48.2 - Chronic atrial fibrillation Is this a current diagnosis for this admission?: Yes (2) Acute diastolic heart failure Is this a current diagnosis for this admission?: Yes (3) Acute on chronic combined systolic (congestive) and diastolic (congestive) heart failure Is this a current diagnosis for this admission?: Yes (4) Acute respiratory failure Qualifiers: Respiratory failure complication: hypoxia and hypercapnia Qualified Code(s) : J96.01 - Acute respiratory failure with hypoxia; J96.02 - Acute respiratory failure with hypercapnia; J96.02 - Acute respiratory failure with hypercapnia; J96.02 - Acute respiratory failure with hypercapnia Is this a current diagnosis for this admission?: Yes (5) Anasarca Is this a current diagnosis for this admission?: Yes (6) Atrial fibrillation with controlled ventricular response Is this a current diagnosis for this admission?: Yes (7) Bilateral leg ulcer Is this a current diagnosis for this admission?: Yes (8) Body mass index 50.0-59.9, adult Is this a current diagnosis for this admission?: Yes (9) Chronic atrial fibrillation with rapid ventricular response Is this a current diagnosis for this admission?: Yes (10) Chronic cutaneous venous stasis ulcer Is this a current diagnosis for this admission?: Yes
[2017-06-02] MEDS: SIMVASTATIN 10 MG TABLET PO SCH (21:51)
[2017-06-03] MEDS: LANSOPRAZOLE 15 MG TAB.RAP.DR PO SCH (06:43)
--- NOTE | 2017-06-03 08:50 | PDOC PROGRESS REPORT ---
Subjective Progress Note for:: 06/03/17 Subjective:: he is currently doing much better Denied any chest pain denied any shortness of the breath This required a BiPAP Patients have a multiple medical comorbidity including the respiratory failure heart failure in the A. fib Physical Exam Vital Signs: Temp Pulse Resp BP Pulse Ox 97.8 F 86 16 118/71 96 06/03/17 08:09 06/03/17 08:09 06/03/17 08:09 06/03/17 08:09 06/03/17 08:09 Intake & Output 06/02/17 06/03/17 06/04/17 06:59 06:59 06:59 Intake Total 1185 1074 Balance 1185 1074 Weight 172 kg 172.4 kg General appearance: PRESENT: no acute distress Eye exam: PRESENT: PERRLA Mouth exam: PRESENT: neck supple Respiratory exam: PRESENT: decreased breath sounds Cardiovascular exam: PRESENT: +S1, +S2 GI/Abdominal exam: PRESENT: normal bowel sounds, soft. ABSENT: tenderness Extremities exam: PRESENT: pedal edema Neurological exam: PRESENT: alert, awake, oriented to person, oriented to place Skin exam: PRESENT: dry Results Laboratory Results: 06/02/17 11:19 06/02/17 11:19 06/02/17 06/02/17 11:19 11:19 WBC 3.3 L RBC 3.96 L Hgb 11.1 L Hct 33.3 L MCV 84 MCH 28.1 MCHC 33.5 RDW 18.0 H Plt Count 158 Seg Neutrophils % 54.0 Lymphocytes % 25.1 Monocytes % 11.8 Eosinophils % 7.9 H Basophils % 1.2 Absolute Neutrophils 1.8 Absolute Lymphocytes 0.8 Absolute Monocytes 0.4 Absolute Eosinophils 0.3 Absolute Basophils 0.0 Sodium 144.9 Potassium 3.7 Chloride 103 Carbon Dioxide 30 Anion Gap 12 BUN 16 Creatinine 1.27 H Est GFR ( Amer) > 60 Est GFR (Non-Af Amer) 59 L Glucose 86 Calcium 8.9 Magnesium 1.8 06/01/17 04:00 Coccyx - Decubitis Ulcer Gram Stain - Final Impressions: Chest X-Ray 05/29/17 18:01 IMPRESSION: CARDIAC ENLARGEMENT. VASCULAR CONGESTION. RIGHT BASILAR ATELECTASIS OR INFILTRATE WITH PLEURAL EFFUSION. Assessment & Plan - Diagnosis (1) A-fib Qualifiers: Atrial fibrillation type: chronic Qualified Code(s): I48.2 - Chronic atrial fibrillation Is this a current diagnosis for this admission?: Yes (2) Acute kidney injury Is this a current diagnosis for this admission?: Yes (3) Acute on chronic combined systolic (congestive) and diastolic (congestive) heart failure Is this a current diagnosis for this admission?: Yes (4) Cardiomyopathy Qualifiers: Cardiomyopathy type: unspecified Qualified Code(s): I42.9 - Cardiomyopathy , unspecified Is this a current diagnosis for this admission?: Yes (5) Chronic respiratory acidosis Is this a current diagnosis for this admission?: Yes (6) Pickwickian syndrome Is this a current diagnosis for this admission?: Yes - Time Time Spent with patient: 15-24 minutes Medications reviewed and adjusted accordingly: Yes Anticipated discharge: Other Within: Other - Inpatient Certification Medical Necessity: Need Close Monitoring Due to Risk of Patient Decompensation Post Hospital Care: D[employer] Associate Documentation - Plan Summary Plan Summary: Continues to current medications patients currently all stable
[2017-06-03] MEDS: LISINOPRIL 10 MG TABLET PO SCH (12:35)
[2017-06-03] MEDS: METOPROLOL SUCCINATE 25 MG TAB.SR.24H PO SCH (12:36)
[2017-06-03] MEDS: FUROSEMIDE INJ/PF 40 MG/4 ML SDV IV SCH (12:37)
[2017-06-03] MEDS: NYSTATIN TOPICAL POWDER 15 GM TP SCH ×2 (12:37→17:09)
[2017-06-03] MEDS: APIXABAN 2.5 MG TABLET PO SCH ×2 (12:37→17:10)
[2017-06-03] MEDS: SIMVASTATIN 10 MG TABLET PO SCH (21:40)
[2017-06-04] MEDS: LANSOPRAZOLE 15 MG TAB.RAP.DR PO SCH (05:19)
--- NOTE | 2017-06-04 09:19 | PDOC PROGRESS REPORT ---
Subjective Progress Note for:: 06/04/17 Subjective:: he is currently doing much better Denied any chest pain denied any shortness of the breath This required a BiPAP Patients have a multiple medical comorbidity including the respiratory failure heart failure in the A. fib Physical Exam Vital Signs: Temp Pulse Resp BP Pulse Ox 98.4 F 52 L 20 112/64 93 06/04/17 07:12 06/04/17 07:12 06/04/17 07:12 06/04/17 07:12 06/04/17 07:12 Intake & Output 06/03/17 06/04/17 06/05/17 06:59 06:59 06:59 Intake Total 1074 965 Balance 1074 965 Weight 172.4 kg 174.2 kg General appearance: PRESENT: no acute distress Eye exam: PRESENT: PERRLA Neck exam: ABSENT: carotid bruit, full ROM, JVD, lymphadenopathy, meningismus, tenderness, thyromegaly, tracheal deviation, tracheostomy, other Respiratory exam: PRESENT: decreased breath sounds Cardiovascular exam: PRESENT: +S1, +S2 GI/Abdominal exam: PRESENT: normal bowel sounds, soft Extremities exam: PRESENT: pedal edema Neurological exam: PRESENT: alert, awake, oriented to person, oriented to place , oriented to time, oriented to situation Results Laboratory Results: 06/02/17 11:19 06/02/17 11:19 06/01/17 04:00 Coccyx - Decubitis Ulcer Gram Stain - Final Impressions: Chest X-Ray 05/29/17 18:01 IMPRESSION: CARDIAC ENLARGEMENT. VASCULAR CONGESTION. RIGHT BASILAR ATELECTASIS OR INFILTRATE WITH PLEURAL EFFUSION. Assessment & Plan - Diagnosis (1) A-fib Qualifiers: Atrial fibrillation type: chronic Qualified Code(s): I48.2 - Chronic atrial fibrillation Is this a current diagnosis for this admission?: Yes (2) Acute kidney injury Is this a current diagnosis for this admission?: Yes (3) Acute on chronic combined systolic (congestive) and diastolic (congestive) heart failure Is this a current diagnosis for this admission?: Yes (4) Cardiomyopathy Qualifiers: Cardiomyopathy type: unspecified Qualified Code(s): I42.9 - Cardiomyopathy , unspecified Is this a current diagnosis for this admission?: Yes (5) Chronic respiratory acidosis Is this a current diagnosis for this admission?: Yes (6) Pickwickian syndrome Is this a current diagnosis for this admission?: Yes - Time Time Spent with patient: 15-24 minutes Medications reviewed and adjusted accordingly: Yes Anticipated discharge: Other Within: Other - Inpatient Certification Medical Necessity: Need Close Monitoring Due to Risk of Patient Decompensation Post Hospital Care: D/C [employer] Attendant Documentation - Plan Summary Plan Summary: Currently all stable continues to current medications
[2017-06-04] MEDS: APIXABAN 2.5 MG TABLET PO SCH ×2 (11:17→17:30)
[2017-06-04] MEDS: METOPROLOL SUCCINATE 25 MG TAB.SR.24H PO SCH (11:18)
[2017-06-04] MEDS: FUROSEMIDE INJ/PF 40 MG/4 ML SDV IV SCH (11:19)
[2017-06-04] MEDS: LISINOPRIL 10 MG TABLET PO SCH (11:19)
[2017-06-04] MEDS: NYSTATIN TOPICAL POWDER 15 GM TP SCH ×2 (11:20→17:31)
[2017-06-04] MEDS: SULFAMETHOXAZOLE/TRIMETHOPRIM 800-160 MG TABLET PO SCH (17:30)
[2017-06-04] MEDS: SIMVASTATIN 10 MG TABLET PO SCH (22:25)
[2017-06-05 05:18] LABS: ABSOLUTE EOSINOPHILS # (AUTO) 0.2 10^3/uL (0.0-0.6); ABSOLUTE MONOCYTES (AUTO) 0.4 10^3/uL (0.1-1.4); ABSOLUTE NEUT (AUTO) 2.3 10^3/uL (1.7-8.2); BASOPHILS % (AUTO) 0.9 % (0-2); HEMATOCRIT 32.7 % (37.9-51.0); HEMOGLOBIN 10.5 g/dL (13.5-17.0); HGB HCT DIFFERENCE -1.2; MEAN CORPUSCULAR HEMOGLOBIN 27.4 pg (27.0-33.4); MEAN CORPUSCULAR HGB CONC 32.1 g/dL (32.0-36.0); MEAN CORPUSCULAR VOLUME 85 fl (80-97); MONOCYTES % (AUTO) 11.1 % (3-13); RED BLOOD COUNT 3.83 10^6/uL (4.35-5.55); RED CELL DISTRIBUTION WIDTH 17.7 % (11.5-14.0)
[2017-06-05 05:47] LABS: ANION GAP 12 (5-19); BLOOD UREA NITROGEN 20 mg/dL (7-20); CALCIUM 8.7 mg/dL (8.4-10.2); CARBON DIOXIDE 29 mmol/L (22-30); CHLORIDE 102 mmol/L (98-107); CREATININE RESULT 1.26 mg/dL (0.52-1.25); GLUCOSE 110 mg/dL (75-110); POTASSIUM 4.2 mmol/L (3.6-5.0)
[2017-06-05] MEDS: LANSOPRAZOLE 15 MG TAB.RAP.DR PO SCH (06:43)
--- NOTE | 2017-06-05 09:22 | PDOC PROGRESS REPORT ---
Subjective Progress Note for:: 06/05/17 Subjective:: Patient is currently doing fair Patient's wound cultures positive for MRSA Patient's also otherwise blood pressure was running in the lower and patient's denied any chest pain denied any shortness of the breath no dizziness Physical Exam Vital Signs: Temp Pulse Resp BP Pulse Ox 97.7 F 48 L 16 104/66 97 06/05/17 07:21 06/05/17 07:21 06/05/17 04:58 06/05/17 07:21 06/05/17 07:21 Intake & Output 06/04/17 06/05/17 06/06/17 06:59 06:59 06:59 Intake Total 965 1276 Output Total 0 Balance 965 1276 Weight 174.2 kg 174.6 kg General appearance: PRESENT: no acute distress Eye exam: PRESENT: PERRLA Neck exam: ABSENT: carotid bruit, full ROM, JVD, lymphadenopathy, meningismus, tenderness, thyromegaly, tracheal deviation, tracheostomy, other Respiratory exam: PRESENT: clear to auscultation dell Cardiovascular exam: PRESENT: +S1, +S2 GI/Abdominal exam: PRESENT: normal bowel sounds, soft. ABSENT: tenderness Extremities exam: PRESENT: pedal edema Additional comments: The wound is the dressing is intact Neurological exam: PRESENT: alert, awake, oriented to person, oriented to place , oriented to time, oriented to situation Results Laboratory Results: 06/05/17 04:37 06/05/17 04:37 06/05/17 06/05/17 04:37 04:37 WBC 4.0 RBC 3.83 L Hgb 10.5 L Hct 32.7 L MCV 85 MCH 27.4 MCHC 32.1 RDW 17.7 H Plt Count 157 Seg Neutrophils % 58.0 Lymphocytes % 24.0 Monocytes % 11.1 Eosinophils % 6.0 Basophils % 0.9 Absolute Neutrophils 2.3 Absolute Lymphocytes 1.0 Absolute Monocytes 0.4 Absolute Eosinophils 0.2 Absolute Basophils 0.0 Sodium 143.0 Potassium 4.2 Chloride 102 Carbon Dioxide 29 Anion Gap 12 BUN 20 Creatinine 1.26 H Est GFR ( Amer) > 60 Est GFR (Non-Af Amer) > 60 Glucose 110 Calcium 8.7 06/01/17 04:00 Coccyx - Decubitis Ulcer Gram Stain - Final 06/01/17 04:00 Coccyx - Decubitis Ulcer Wound Culture - Final Mrsa (Meth Resis Staph Aureus) Escherichia Coli Skin Shanti Impressions: Chest X-Ray 05/29/17 18:01 IMPRESSION: CARDIAC ENLARGEMENT. VASCULAR CONGESTION. RIGHT BASILAR ATELECTASIS OR INFILTRATE WITH PLEURAL EFFUSION. Assessment & Plan - Diagnosis (1) A-fib Qualifiers: Atrial fibrillation type: chronic Qualified Code(s): I48.2 - Chronic atrial fibrillation Is this a current diagnosis for this admission?: Yes (2) Acute kidney injury Is this a current diagnosis for this admission?: Yes (3) Acute on chronic combined systolic (congestive) and diastolic (congestive) heart failure Is this a current diagnosis for this admission?: Yes (4) Cardiomyopathy Qualifiers: Cardiomyopathy type: unspecified Qualified Code(s): I42.9 - Cardiomyopathy , unspecified Is this a current diagnosis for this admission?: Yes (5) Chronic respiratory acidosis Is this a current diagnosis for this admission?: Yes (6) Pickwickian syndrome Is this a current diagnosis for this admission?: Yes - Time Time Spent with patient: 15-24 minutes Medications reviewed and adjusted accordingly: Yes Anticipated discharge: Other Within: Other - Inpatient Certification Medical Necessity: Need Close Monitoring Due to Risk of Patient Decompensation Post Hospital Care: D/C Cook Night Documentation - Plan Summary Plan Summary: Start the patient on the Bactrim p.o. she is sensitive to the organism hold the blood pressure medications
[2017-06-05] MEDS: FUROSEMIDE INJ/PF 40 MG/4 ML SDV IV SCH (09:57)
[2017-06-05] MEDS: SULFAMETHOXAZOLE/TRIMETHOPRIM 800-160 MG TABLET PO SCH ×2 (09:57→17:15)
[2017-06-05] MEDS: METOPROLOL SUCCINATE 25 MG TAB.SR.24H PO SCH (09:57)
[2017-06-05] MEDS: NYSTATIN TOPICAL POWDER 15 GM TP SCH ×2 (09:58→17:21)
[2017-06-05] MEDS: APIXABAN 2.5 MG TABLET PO SCH ×2 (09:58→17:16)
[2017-06-05] MEDS: LISINOPRIL 10 MG TABLET PO SCH (10:06)
[2017-06-05] MEDS: SIMVASTATIN 10 MG TABLET PO SCH (21:57)
[2017-06-06] MEDS: LANSOPRAZOLE 15 MG TAB.RAP.DR PO SCH (06:38)
--- NOTE | 2017-06-06 09:19 | PDOC PROGRESS REPORT ---
Subjective Progress Note for:: 06/06/17 Subjective:: Patient is currently doing much better Patient's denied any chest pain denied any shortness of the breath Physical Exam Vital Signs: Temp Pulse Resp BP Pulse Ox 97.4 F 69 19 106/73 95 06/06/17 07:14 06/06/17 07:14 06/06/17 07:14 06/06/17 07:14 06/06/17 07:14 Intake & Output 06/05/17 06/06/17 06/07/17 06:59 06:59 06:59 Intake Total 1276 1170 Output Total 0 Balance 1276 1170 Weight 174.6 kg 174.5 kg General appearance: PRESENT: no acute distress, well-developed, well-nourished Head exam: PRESENT: atraumatic, normocephalic Eye exam: PRESENT: conjunctiva pink, EOMI, PERRLA. ABSENT: scleral icterus Ear exam: PRESENT: normal external ear exam Mouth exam: PRESENT: moist, tongue midline Neck exam: PRESENT: full ROM. ABSENT: carotid bruit, JVD, lymphadenopathy, thyromegaly Respiratory exam: PRESENT: clear to auscultation dell Cardiovascular exam: PRESENT: RRR. ABSENT: diastolic murmur, rubs, systolic murmur Pulses: PRESENT: normal dorsalis pedis pul, +2 pedal pulses bilateral Vascular exam: PRESENT: normal capillary refill GI/Abdominal exam: PRESENT: normal bowel sounds, soft. ABSENT: distended, guarding, mass, organolmegaly, rebound, tenderness Rectal exam: PRESENT: deferred Neurological exam: PRESENT: alert, awake, oriented to person, oriented to place Psychiatric exam: PRESENT: appropriate affect, normal mood. ABSENT: homicidal ideation, suicidal ideation Skin exam: PRESENT: dry, intact, warm. ABSENT: cyanosis, rash Results Laboratory Results: 06/05/17 04:37 06/05/17 04:37 Impressions: Chest X-Ray 05/29/17 18:01 IMPRESSION: CARDIAC ENLARGEMENT. VASCULAR CONGESTION. RIGHT BASILAR ATELECTASIS OR INFILTRATE WITH PLEURAL EFFUSION. Assessment & Plan - Diagnosis (1) A-fib Qualifiers: Atrial fibrillation type: chronic Qualified Code(s): I48.2 - Chronic atrial fibrillation Is this a current diagnosis for this admission?: Yes (2) Acute kidney injury Is this a current diagnosis for this admission?: Yes (3) Acute on chronic combined systolic (congestive) and diastolic (congestive) heart failure Is this a current diagnosis for this admission?: Yes (4) Cardiomyopathy Qualifiers: Cardiomyopathy type: unspecified Qualified Code(s): I42.9 - Cardiomyopathy , unspecified Is this a current diagnosis for this admission?: Yes (5) Chronic respiratory acidosis Is this a current diagnosis for this admission?: Yes (6) Pickwickian syndrome Is this a current diagnosis for this admission?: Yes - Time Time Spent with patient: 15-24 minutes Medications reviewed and adjusted accordingly: Yes Anticipated discharge: SNF Within: Other - Inpatient Certification Medical Necessity: Need Close Monitoring Due to Risk of Patient Decompensation Post Hospital Care: D/C 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
[2017-06-06] MEDS: METOPROLOL SUCCINATE 25 MG TAB.SR.24H PO SCH (09:57)
[2017-06-06] MEDS: SULFAMETHOXAZOLE/TRIMETHOPRIM 800-160 MG TABLET PO SCH ×2 (09:57→18:00)
[2017-06-06] MEDS: FUROSEMIDE INJ/PF 40 MG/4 ML SDV IV SCH (09:58)
[2017-06-06] MEDS: APIXABAN 2.5 MG TABLET PO SCH ×2 (09:59→18:00)
[2017-06-06] MEDS: NYSTATIN TOPICAL POWDER 15 GM TP SCH ×2 (09:59→17:59)
[2017-06-06] MEDS: SIMVASTATIN 10 MG TABLET PO SCH (21:21)
[2017-06-07] MEDS: LANSOPRAZOLE 15 MG TAB.RAP.DR PO SCH (06:52)
[2017-06-07] MEDS: METOPROLOL SUCCINATE 25 MG TAB.SR.24H PO SCH (09:03)
[2017-06-07] MEDS: FUROSEMIDE INJ/PF 40 MG/4 ML SDV IV SCH (09:04)
[2017-06-07] MEDS: NYSTATIN TOPICAL POWDER 15 GM TP SCH ×2 (09:05→17:19)
[2017-06-07] MEDS: APIXABAN 2.5 MG TABLET PO SCH ×2 (09:06→17:19)
[2017-06-07] MEDS: SULFAMETHOXAZOLE/TRIMETHOPRIM 800-160 MG TABLET PO SCH ×2 (09:16→17:19)
--- NOTE | 2017-06-07 21:33 | PDOC PROGRESS REPORT ---
Subjective Progress Note for:: 06/07/17 Subjective:: Patient was seen by the bedside there is no new complaints today Reason For Visit: ACUTE ON CHRONIC CONGESTIVE HEART FAILURE Physical Exam Vital Signs: Temp Pulse Resp BP Pulse Ox 97.7 F 89 22 H 99/61 L 100 06/07/17 16:43 06/07/17 19:00 06/07/17 16:43 06/07/17 16:43 06/07/17 16:43 Intake & Output 06/06/17 06/07/17 06/08/17 06:59 06:59 06:59 Intake Total 1170 1485 945 Balance 1170 1485 945 Weight 174.5 kg 174.6 kg Head exam: PRESENT: atraumatic, normocephalic Eye exam: PRESENT: conjunctiva pink, EOMI, PERRLA Neck exam: PRESENT: full ROM Respiratory exam: PRESENT: clear to auscultation dell Cardiovascular exam: PRESENT: RRR, +S1, +S2 Vascular exam: PRESENT: normal capillary refill GI/Abdominal exam: PRESENT: normal bowel sounds, soft Neurological exam: PRESENT: alert Psychiatric exam: PRESENT: appropriate affect. ABSENT: homicidal ideation, suicidal ideation Results Laboratory Results: 06/05/17 04:37 06/05/17 04:37 Impressions: Chest X-Ray 05/29/17 18:01 IMPRESSION: CARDIAC ENLARGEMENT. VASCULAR CONGESTION. RIGHT BASILAR ATELECTASIS OR INFILTRATE WITH PLEURAL EFFUSION. Assessment & Plan - Diagnosis (1) A-fib Qualifiers: Atrial fibrillation type: chronic Qualified Code(s): I48.2 - Chronic atrial fibrillation Is this a current diagnosis for this admission?: Yes (2) Acute diastolic heart failure Is this a current diagnosis for this admission?: Yes (3) Acute on chronic combined systolic (congestive) and diastolic (congestive) heart failure Is this a current diagnosis for this admission?: Yes (4) Acute respiratory failure Qualifiers: Respiratory failure complication: hypoxia and hypercapnia Qualified Code(s) : J96.01 - Acute respiratory failure with hypoxia; J96.02 - Acute respiratory failure with hypercapnia; J96.02 - Acute respiratory failure with hypercapnia; J96.02 - Acute respiratory failure with hypercapnia Is this a current diagnosis for this admission?: Yes (5) Anasarca Is this a current diagnosis for this admission?: Yes (6) Atrial fibrillation with controlled ventricular response Is this a current diagnosis for this admission?: Yes (7) Bilateral leg ulcer Is this a current diagnosis for this admission?: Yes (8) Body mass index 50.0-59.9, adult Is this a current diagnosis for this admission?: Yes (9) Chronic atrial fibrillation with rapid ventricular response Is this a current diagnosis for this admission?: Yes (10) Chronic cutaneous venous stasis ulcer Is this a current diagnosis for this admission?: Yes
[2017-06-07] MEDS: SIMVASTATIN 10 MG TABLET PO SCH (21:46)
[2017-06-08] MEDS: LANSOPRAZOLE 15 MG TAB.RAP.DR PO SCH (06:12)
[2017-06-08] MEDS: SULFAMETHOXAZOLE/TRIMETHOPRIM 800-160 MG TABLET PO SCH ×2 (09:37→18:27)
[2017-06-08] MEDS: METOPROLOL SUCCINATE 25 MG TAB.SR.24H PO SCH (09:38)
[2017-06-08] MEDS: NYSTATIN TOPICAL POWDER 15 GM TP SCH ×2 (09:39→18:28)
[2017-06-08] MEDS: APIXABAN 2.5 MG TABLET PO SCH ×2 (09:39→18:27)
[2017-06-08 10:05] LABS: ABSOLUTE EOSINOPHILS # (AUTO) 0.2 10^3/uL (0.0-0.6); ABSOLUTE MONOCYTES (AUTO) 0.4 10^3/uL (0.1-1.4); ABSOLUTE NEUT (AUTO) 1.9 10^3/uL (1.7-8.2); BASOPHILS % (AUTO) 1.3 % (0-2); EOSINOPHILS % (AUTO) 6.2 % (0-6); HEMATOCRIT 34.5 % (37.9-51.0); HEMOGLOBIN 11.1 g/dL (13.5-17.0); HGB HCT DIFFERENCE -1.2; LYMPHOCYTES % (AUTO) 27.2 % (13-45); MEAN CORPUSCULAR HEMOGLOBIN 27.3 pg (27.0-33.4); MEAN CORPUSCULAR HGB CONC 32.3 g/dL (32.0-36.0); MEAN CORPUSCULAR VOLUME 85 fl (80-97); MONOCYTES % (AUTO) 11.3 % (3-13); RED BLOOD COUNT 4.07 10^6/uL (4.35-5.55); RED CELL DISTRIBUTION WIDTH 17.1 % (11.5-14.0); WHITE BLOOD COUNT 3.6 10^3/uL (4.0-10.5)
[2017-06-08 10:26] LABS: ANION GAP 11 (5-19); BLOOD UREA NITROGEN 25 mg/dL (7-20); CALCIUM 9.1 mg/dL (8.4-10.2); CARBON DIOXIDE 32 mmol/L (22-30); CHLORIDE 99 mmol/L (98-107); GLUCOSE 104 mg/dL (75-110); MAGNESIUM 1.9 mg/dL (1.6-2.3); POTASSIUM 4.7 mmol/L (3.6-5.0); SODIUM 141.5 mmol/L (137-145)
[2017-06-08] MEDS ORDERED: FUROSEMIDE 40 MG TABLET PO ONE (13:30)
--- NOTE | 2017-06-08 21:13 | PDOC PROGRESS REPORT ---
Subjective Progress Note for:: 06/08/17 Subjective:: Patient was seen by the bedside there is no new complaints today Reason For Visit: ACUTE ON CHRONIC CONGESTIVE HEART FAILURE Physical Exam Vital Signs: Temp Pulse Resp BP Pulse Ox 98.1 F 62 20 104/61 100 06/08/17 16:03 06/08/17 19:00 06/08/17 16:03 06/08/17 16:03 06/08/17 16:03 Intake & Output 06/07/17 06/08/17 06/09/17 06:59 06:59 06:59 Intake Total 1485 1098 947 Output Total 0 Balance 1485 1098 947 Weight 174.6 kg 174.7 kg Head exam: PRESENT: atraumatic, normocephalic Neck exam: PRESENT: full ROM Respiratory exam: PRESENT: clear to auscultation dell Cardiovascular exam: PRESENT: RRR, +S1, +S2 Vascular exam: PRESENT: normal capillary refill GI/Abdominal exam: PRESENT: normal bowel sounds, soft Rectal exam: PRESENT: deferred Neurological exam: PRESENT: alert. ABSENT: motor sensory deficit Psychiatric exam: PRESENT: appropriate affect, normal mood Skin exam: PRESENT: dry, intact, warm. ABSENT: cyanosis, rash Results Laboratory Results: 06/08/17 09:27 06/08/17 09:27 06/08/17 06/08/17 09:27 09:27 WBC 3.6 L RBC 4.07 L Hgb 11.1 L Hct 34.5 L MCV 85 MCH 27.3 MCHC 32.3 RDW 17.1 H Plt Count 165 Seg Neutrophils % 54.0 Lymphocytes % 27.2 Monocytes % 11.3 Eosinophils % 6.2 H Basophils % 1.3 Absolute Neutrophils 1.9 Absolute Lymphocytes 1.0 Absolute Monocytes 0.4 Absolute Eosinophils 0.2 Absolute Basophils 0.0 Sodium 141.5 Potassium 4.7 Chloride 99 Carbon Dioxide 32 H Anion Gap 11 BUN 25 H Creatinine 1.50 H Est GFR ( Amer) 59 L Est GFR (Non-Af Amer) 49 L Glucose 104 Calcium 9.1 Magnesium 1.9 Impressions: Chest X-Ray 05/29/17 18:01 IMPRESSION: CARDIAC ENLARGEMENT. VASCULAR CONGESTION. RIGHT BASILAR ATELECTASIS OR INFILTRATE WITH PLEURAL EFFUSION. Assessment & Plan - Diagnosis (1) A-fib Qualifiers: Atrial fibrillation type: chronic Qualified Code(s): I48.2 - Chronic atrial fibrillation Is this a current diagnosis for this admission?: Yes (2) Acute diastolic heart failure Is this a current diagnosis for this admission?: Yes (3) Acute on chronic combined systolic (congestive) and diastolic (congestive) heart failure Is this a current diagnosis for this admission?: Yes (4) Acute respiratory failure Qualifiers: Respiratory failure complication: hypoxia and hypercapnia Qualified Code(s) : J96.01 - Acute respiratory failure with hypoxia; J96.02 - Acute respiratory failure with hypercapnia; J96.02 - Acute respiratory failure with hypercapnia; J96.02 - Acute respiratory failure with hypercapnia Is this a current diagnosis for this admission?: Yes (5) Anasarca Is this a current diagnosis for this admission?: Yes (6) Atrial fibrillation with controlled ventricular response Is this a current diagnosis for this admission?: Yes (7) Bilateral leg ulcer Is this a current diagnosis for this admission?: Yes (8) Body mass index 50.0-59.9, adult Is this a current diagnosis for this admission?: Yes (9) Chronic atrial fibrillation with rapid ventricular response Is this a current diagnosis for this admission?: Yes (10) Chronic cutaneous venous stasis ulcer Is this a current diagnosis for this admission?: Yes
[2017-06-08] MEDS: SIMVASTATIN 10 MG TABLET PO SCH (21:18)
[2017-06-09] MEDS: LANSOPRAZOLE 15 MG TAB.RAP.DR PO SCH (06:04)
[2017-06-09] MEDS: NYSTATIN TOPICAL POWDER 15 GM TP SCH ×2 (10:01→17:41)
[2017-06-09] MEDS: APIXABAN 2.5 MG TABLET PO SCH ×2 (10:01→17:41)
[2017-06-09] MEDS: SULFAMETHOXAZOLE/TRIMETHOPRIM 800-160 MG TABLET PO SCH ×2 (10:01→17:41)
[2017-06-09] MEDS: METOPROLOL SUCCINATE 25 MG TAB.SR.24H PO SCH (10:02)
[2017-06-09] MEDS: FUROSEMIDE 40 MG TABLET PO SCH (12:40)
--- NOTE | 2017-06-09 18:05 | PDOC PROGRESS REPORT ---
Subjective Progress Note for:: 06/09/17 Subjective:: She was advised of the need to be more ambulatory he has sacral decubiti ulcer HE need pressure offloading for the ulcer to heal quickly Reason For Visit: ACUTE ON CHRONIC CONGESTIVE HEART FAILURE Physical Exam Vital Signs: Temp Pulse Resp BP Pulse Ox 98.3 F 86 23 H 102/62 100 06/09/17 14:56 06/09/17 14:56 06/09/17 14:56 06/09/17 14:56 06/09/17 14:56 Intake & Output 06/08/17 06/09/17 06/10/17 06:59 06:59 06:59 Intake Total 1098 1250 Output Total 0 Balance 1098 1250 Weight 174.7 kg 174.1 kg General appearance: PRESENT: no acute distress Eye exam: PRESENT: PERRLA Respiratory exam: PRESENT: clear to auscultation dell Cardiovascular exam: PRESENT: +S1, +S2 GI/Abdominal exam: PRESENT: soft Results Laboratory Results: 06/08/17 09:27 06/08/17 09:27 Impressions: Chest X-Ray 05/29/17 18:01 IMPRESSION: CARDIAC ENLARGEMENT. VASCULAR CONGESTION. RIGHT BASILAR ATELECTASIS OR INFILTRATE WITH PLEURAL EFFUSION. Assessment & Plan - Diagnosis (1) A-fib Qualifiers: Atrial fibrillation type: chronic Qualified Code(s): I48.2 - Chronic atrial fibrillation Is this a current diagnosis for this admission?: Yes (2) Acute diastolic heart failure Is this a current diagnosis for this admission?: Yes (3) Acute on chronic combined systolic (congestive) and diastolic (congestive) heart failure Is this a current diagnosis for this admission?: Yes (4) Acute respiratory failure Qualifiers: Respiratory failure complication: hypoxia and hypercapnia Qualified Code(s) : J96.01 - Acute respiratory failure with hypoxia; J96.02 - Acute respiratory failure with hypercapnia; J96.02 - Acute respiratory failure with hypercapnia; J96.02 - Acute respiratory failure with hypercapnia Is this a current diagnosis for this admission?: Yes (5) Anasarca Is this a current diagnosis for this admission?: Yes (6) Atrial fibrillation with controlled ventricular response Is this a current diagnosis for this admission?: Yes (7) Bilateral leg ulcer Is this a current diagnosis for this admission?: Yes (8) Body mass index 50.0-59.9, adult Is this a current diagnosis for this admission?: Yes (9) Chronic atrial fibrillation with rapid ventricular response Is this a current diagnosis for this admission?: Yes (10) Chronic cutaneous venous stasis ulcer Is this a current diagnosis for this admission?: Yes
[2017-06-09] MEDS: SIMVASTATIN 10 MG TABLET PO SCH (21:46)
[2017-06-10] MEDS: LANSOPRAZOLE 15 MG TAB.RAP.DR PO SCH (05:15)
[2017-06-10] MEDS: APIXABAN 2.5 MG TABLET PO SCH ×2 (09:24→17:02)
[2017-06-10] MEDS: METOPROLOL SUCCINATE 25 MG TAB.SR.24H PO SCH (09:24)
[2017-06-10] MEDS: FUROSEMIDE 40 MG TABLET PO SCH (09:24)
[2017-06-10] MEDS: NYSTATIN TOPICAL POWDER 15 GM TP SCH ×2 (09:25→17:18)
[2017-06-10] MEDS: SULFAMETHOXAZOLE/TRIMETHOPRIM 800-160 MG TABLET PO SCH ×2 (09:25→17:02)
[2017-06-10] MEDS: SIMVASTATIN 10 MG TABLET PO SCH (21:54)
--- NOTE | 2017-06-10 23:13 | PDOC PROGRESS REPORT ---
Subjective Progress Note for:: 06/10/17 Subjective:: Patient seen by the bedside, he could be downgraded to medical floor Reason For Visit: ACUTE ON CHRONIC CONGESTIVE HEART FAILURE Physical Exam Vital Signs: Temp Pulse Resp BP Pulse Ox 97.8 F 64 18 93/60 L 96 06/10/17 20:04 06/10/17 20:04 06/10/17 20:04 06/10/17 20:04 06/10/17 20:00 Intake & Output 06/09/17 06/10/17 06/11/17 06:59 06:59 06:59 Intake Total 1250 1301 754 Balance 1250 1301 754 Weight 174.1 kg 176.5 kg General appearance: PRESENT: no acute distress Eye exam: PRESENT: PERRLA Respiratory exam: PRESENT: clear to auscultation dell Cardiovascular exam: PRESENT: +S1, +S2 Neurological exam: PRESENT: altered Results Laboratory Results: 06/08/17 09:27 06/08/17 09:27 Impressions: Chest X-Ray 05/29/17 18:01 IMPRESSION: CARDIAC ENLARGEMENT. VASCULAR CONGESTION. RIGHT BASILAR ATELECTASIS OR INFILTRATE WITH PLEURAL EFFUSION. Assessment & Plan - Diagnosis (1) A-fib Qualifiers: Atrial fibrillation type: chronic Qualified Code(s): I48.2 - Chronic atrial fibrillation Is this a current diagnosis for this admission?: Yes (2) Acute diastolic heart failure Is this a current diagnosis for this admission?: Yes (3) Acute on chronic combined systolic (congestive) and diastolic (congestive) heart failure Is this a current diagnosis for this admission?: Yes (4) Acute respiratory failure Qualifiers: Respiratory failure complication: hypoxia and hypercapnia Qualified Code(s) : J96.01 - Acute respiratory failure with hypoxia; J96.02 - Acute respiratory failure with hypercapnia; J96.02 - Acute respiratory failure with hypercapnia; J96.02 - Acute respiratory failure with hypercapnia Is this a current diagnosis for this admission?: Yes (5) Anasarca Is this a current diagnosis for this admission?: Yes (6) Atrial fibrillation with controlled ventricular response Is this a current diagnosis for this admission?: Yes (7) Bilateral leg ulcer Is this a current diagnosis for this admission?: Yes (8) Body mass index 50.0-59.9, adult Is this a current diagnosis for this admission?: Yes (9) Chronic atrial fibrillation with rapid ventricular response Is this a current diagnosis for this admission?: Yes (10) Chronic cutaneous venous stasis ulcer Is this a current diagnosis for this admission?: Yes
[2017-06-11] MEDS: LANSOPRAZOLE 15 MG TAB.RAP.DR PO SCH (05:10)
[2017-06-11] MEDS: FUROSEMIDE 40 MG TABLET PO SCH (09:38)
[2017-06-11] MEDS: SULFAMETHOXAZOLE/TRIMETHOPRIM 800-160 MG TABLET PO SCH (09:38)
[2017-06-11] MEDS: NYSTATIN TOPICAL POWDER 15 GM TP SCH ×2 (10:20→19:02)
[2017-06-11] MEDS: APIXABAN 2.5 MG TABLET PO SCH ×2 (10:20→19:01)
[2017-06-11] MEDS: METOPROLOL SUCCINATE 25 MG TAB.SR.24H PO SCH (11:27)
--- NOTE | 2017-06-11 21:03 | PDOC PROGRESS REPORT ---
Subjective Progress Note for:: 06/11/17 Subjective:: Patient seen by the bedside, the biggest challenge at this time is disposition, is morbidly obese with chronic venous hypertension of both lower extremities, he would need Unna boots applied to both legs, needs to get out of bed to chair. The pressure ulcer in the sacrum is clean and healing nicely Reason For Visit: ACUTE ON CHRONIC CONGESTIVE HEART FAILURE Physical Exam Vital Signs: Temp Pulse Resp BP Pulse Ox 97.9 F 81 20 98/57 L 96 06/11/17 15:19 06/11/17 15:19 06/11/17 15:19 06/11/17 15:19 06/11/17 15:55 Intake & Output 06/10/17 06/11/17 06/12/17 06:59 06:59 06:59 Intake Total 1301 1104 596 Balance 1301 1104 596 Weight 176.5 kg 177.7 kg General appearance: PRESENT: morbidly obese Head exam: PRESENT: atraumatic, normocephalic Eye exam: PRESENT: conjunctiva pink, EOMI, PERRLA. ABSENT: scleral icterus Ear exam: PRESENT: normal external ear exam Mouth exam: PRESENT: moist, tongue midline Neck exam: PRESENT: full ROM Respiratory exam: PRESENT: clear to auscultation dell Cardiovascular exam: PRESENT: RRR, +S1, +S2 Pulses: PRESENT: normal dorsalis pedis pul, +2 pedal pulses bilateral Vascular exam: PRESENT: normal capillary refill GI/Abdominal exam: PRESENT: normal bowel sounds, soft Rectal exam: PRESENT: deferred Neurological exam: PRESENT: alert. ABSENT: motor sensory deficit Psychiatric exam: PRESENT: appropriate affect, normal mood Skin exam: PRESENT: dry, intact, warm. ABSENT: cyanosis, rash Results Laboratory Results: 06/08/17 09:27 06/08/17 09:27 Impressions: Chest X-Ray 05/29/17 18:01 IMPRESSION: CARDIAC ENLARGEMENT. VASCULAR CONGESTION. RIGHT BASILAR ATELECTASIS OR INFILTRATE WITH PLEURAL EFFUSION. Assessment & Plan - Diagnosis (1) A-fib Qualifiers: Atrial fibrillation type: chronic Qualified Code(s): I48.2 - Chronic atrial fibrillation Is this a current diagnosis for this admission?: Yes (2) Acute diastolic heart failure Is this a current diagnosis for this admission?: Yes (3) Acute on chronic combined systolic (congestive) and diastolic (congestive) heart failure Is this a current diagnosis for this admission?: Yes (4) Acute respiratory failure Qualifiers: Respiratory failure complication: hypoxia and hypercapnia Qualified Code(s) : J96.01 - Acute respiratory failure with hypoxia; J96.02 - Acute respiratory failure with hypercapnia; J96.02 - Acute respiratory failure with hypercapnia; J96.02 - Acute respiratory failure with hypercapnia Is this a current diagnosis for this admission?: Yes (5) Anasarca Is this a current diagnosis for this admission?: Yes (6) Atrial fibrillation with controlled ventricular response Is this a current diagnosis for this admission?: Yes (7) Bilateral leg ulcer Is this a current diagnosis for this admission?: Yes (8) Body mass index 50.0-59.9, adult Is this a current diagnosis for this admission?: Yes (9) Chronic atrial fibrillation with rapid ventricular response Is this a current diagnosis for this admission?: Yes (10) Chronic cutaneous venous stasis ulcer Is this a current diagnosis for this admission?: Yes
[2017-06-11] MEDS: SIMVASTATIN 10 MG TABLET PO SCH (21:53)
[2017-06-12] MEDS: LANSOPRAZOLE 15 MG TAB.RAP.DR PO SCH (05:26)
[2017-06-12] MEDS: METOPROLOL SUCCINATE 25 MG TAB.SR.24H PO SCH (10:17)
[2017-06-12] MEDS: FUROSEMIDE 40 MG TABLET PO SCH (10:18)
[2017-06-12] MEDS: APIXABAN 2.5 MG TABLET PO SCH ×2 (10:19→18:41)
[2017-06-12] MEDS: NYSTATIN TOPICAL POWDER 15 GM TP SCH ×2 (10:21→19:15)
--- NOTE | 2017-06-12 18:16 | PDOC PROGRESS REPORT ---
Subjective Progress Note for:: 06/12/17 Subjective:: Patient seen by the bedside, the biggest challenge at this time is disposition, is morbidly obese with chronic venous hypertension of both lower extremities, he would need Unna boots applied to both legs, needs to get out of bed to chair. The pressure ulcer in the sacrum is clean and healing nicely Reason For Visit: ACUTE ON CHRONIC CONGESTIVE HEART FAILURE Physical Exam Vital Signs: Temp Pulse Resp BP Pulse Ox 97.6 F 86 16 102/54 L 97 06/12/17 16:39 06/12/17 16:39 06/12/17 16:39 06/12/17 16:39 06/12/17 16:39 Intake & Output 06/11/17 06/12/17 06/13/17 06:59 06:59 06:59 Intake Total 1104 1896 596 Balance 1104 1896 596 Weight 177.7 kg General appearance: PRESENT: morbidly obese Respiratory exam: PRESENT: clear to auscultation dell Cardiovascular exam: PRESENT: +S1, +S2 GI/Abdominal exam: PRESENT: soft Results Laboratory Results: 06/08/17 09:27 06/08/17 09:27 Impressions: Chest X-Ray 05/29/17 18:01 IMPRESSION: CARDIAC ENLARGEMENT. VASCULAR CONGESTION. RIGHT BASILAR ATELECTASIS OR INFILTRATE WITH PLEURAL EFFUSION. Assessment & Plan - Diagnosis (1) A-fib Qualifiers: Atrial fibrillation type: chronic Qualified Code(s): I48.2 - Chronic atrial fibrillation Is this a current diagnosis for this admission?: Yes (2) Acute diastolic heart failure Is this a current diagnosis for this admission?: Yes (3) Acute on chronic combined systolic (congestive) and diastolic (congestive) heart failure Is this a current diagnosis for this admission?: Yes (4) Acute respiratory failure Qualifiers: Respiratory failure complication: hypoxia and hypercapnia Qualified Code(s) : J96.01 - Acute respiratory failure with hypoxia; J96.02 - Acute respiratory failure with hypercapnia; J96.02 - Acute respiratory failure with hypercapnia; J96.02 - Acute respiratory failure with hypercapnia Is this a current diagnosis for this admission?: Yes (5) Anasarca Is this a current diagnosis for this admission?: Yes (6) Atrial fibrillation with controlled ventricular response Is this a current diagnosis for this admission?: Yes (7) Bilateral leg ulcer Is this a current diagnosis for this admission?: Yes (8) Body mass index 50.0-59.9, adult Is this a current diagnosis for this admission?: Yes (9) Chronic atrial fibrillation with rapid ventricular response Is this a current diagnosis for this admission?: Yes (10) Chronic cutaneous venous stasis ulcer Is this a current diagnosis for this admission?: Yes (11) Sacral decubitus ulcer, stage IV Is this a current diagnosis for this admission?: Yes
[2017-06-12] MEDS: SIMVASTATIN 10 MG TABLET PO SCH (22:19)
[2017-06-13] MEDS: LANSOPRAZOLE 15 MG TAB.RAP.DR PO SCH (06:21)
[2017-06-13] MEDS: APIXABAN 2.5 MG TABLET PO SCH ×2 (10:52→18:40)
[2017-06-13] MEDS: METOPROLOL SUCCINATE 25 MG TAB.SR.24H PO SCH (11:41)
[2017-06-13] MEDS: NYSTATIN TOPICAL POWDER 15 GM TP SCH ×2 (11:42→21:13)
[2017-06-13] MEDS: FUROSEMIDE 40 MG TABLET PO SCH (11:42)
--- NOTE | 2017-06-13 13:19 | PDOC PROGRESS REPORT ---
Subjective Progress Note for:: 06/13/17 Subjective:: Patient needs to be discharged to a long-term acute care facility, will consult discharge planning to make arrangements for that to happen. Patient cannot take care of self at home and clearly he cannot stay for prolonged period of time in this hospital. His condition is improved tremendously Reason For Visit: ACUTE ON CHRONIC CONGESTIVE HEART FAILURE Physical Exam Vital Signs: Temp Pulse Resp BP Pulse Ox 97.4 F 69 25 H 102/71 100 06/13/17 00:00 06/13/17 00:00 06/13/17 08:35 06/13/17 00:00 06/13/17 00:00 Intake & Output 06/12/17 06/13/17 06/14/17 06:59 06:59 06:59 Intake Total 1896 1500 Balance 1896 1500 General appearance: PRESENT: no acute distress Eye exam: PRESENT: PERRLA Respiratory exam: PRESENT: clear to auscultation dell Cardiovascular exam: PRESENT: +S1, +S2 GI/Abdominal exam: PRESENT: soft Neurological exam: PRESENT: alert Results Laboratory Results: 06/08/17 09:27 06/08/17 09:27 Impressions: Chest X-Ray 05/29/17 18:01 IMPRESSION: CARDIAC ENLARGEMENT. VASCULAR CONGESTION. RIGHT BASILAR ATELECTASIS OR INFILTRATE WITH PLEURAL EFFUSION. Assessment & Plan - Diagnosis (1) A-fib Qualifiers: Atrial fibrillation type: chronic Qualified Code(s): I48.2 - Chronic atrial fibrillation Is this a current diagnosis for this admission?: Yes (2) Acute diastolic heart failure Is this a current diagnosis for this admission?: Yes (3) Acute on chronic combined systolic (congestive) and diastolic (congestive) heart failure Is this a current diagnosis for this admission?: Yes (4) Acute respiratory failure Qualifiers: Respiratory failure complication: hypoxia and hypercapnia Qualified Code(s) : J96.01 - Acute respiratory failure with hypoxia; J96.02 - Acute respiratory failure with hypercapnia; J96.02 - Acute respiratory failure with hypercapnia; J96.02 - Acute respiratory failure with hypercapnia Is this a current diagnosis for this admission?: Yes (5) Anasarca Is this a current diagnosis for this admission?: Yes (6) Atrial fibrillation with controlled ventricular response Is this a current diagnosis for this admission?: Yes (7) Bilateral leg ulcer Is this a current diagnosis for this admission?: Yes (8) Body mass index 50.0-59.9, adult Is this a current diagnosis for this admission?: Yes (9) Chronic atrial fibrillation with rapid ventricular response Is this a current diagnosis for this admission?: Yes (10) Chronic cutaneous venous stasis ulcer Is this a current diagnosis for this admission?: Yes - Plan Summary Plan Summary: He has a Unna boot in place, consultation requested from discharge planning to make arrangements for placement in a long-term acute care setting
[2017-06-13 14:14] LABS: ABSOLUTE BASOPHILS # (AUTO) 0.1 10^3/uL (0.0-0.2); ABSOLUTE EOSINOPHILS # (AUTO) 0.2 10^3/uL (0.0-0.6); ABSOLUTE LYMPHOCYTES (AUTO) 0.7 10^3/uL (0.5-4.7); ABSOLUTE MONOCYTES (AUTO) 0.5 10^3/uL (0.1-1.4); ABSOLUTE NEUT (AUTO) 2.4 10^3/uL (1.7-8.2); BASOPHILS % (AUTO) 1.5 % (0-2); EOSINOPHILS % (AUTO) 5.5 % (0-6); LYMPHOCYTES % (AUTO) 19.2 % (13-45); MEAN CORPUSCULAR HEMOGLOBIN 27.3 pg (27.0-33.4); MEAN CORPUSCULAR HGB CONC 32.4 g/dL (32.0-36.0); MEAN CORPUSCULAR VOLUME 84 fl (80-97); MONOCYTES % (AUTO) 12.2 % (3-13); RED BLOOD COUNT 4.03 10^6/uL (4.35-5.55); SEGMENTED NEUTROPHILS % (AUTO) 61.6 % (42-78); WHITE BLOOD COUNT 3.9 10^3/uL (4.0-10.5)
[2017-06-13 14:58] LABS: ALANINE AMINOTRANSFERASE 29 U/L (21-72); ALBUMIN 3.4 g/dL (3.5-5.0); ALKALINE PHOSPHATASE 64 U/L (38-126); ANION GAP 7 (5-19); ASPARTATE AMINO TRANSFERASE 19 U/L (17-59); BILIRUBIN,DIRECT 0.9 mg/dL (0.0-0.4); BILIRUBIN,TOTAL 1.3 mg/dL (0.2-1.3); BLOOD UREA NITROGEN 27 mg/dL (7-20); CALCIUM 9.2 mg/dL (8.4-10.2); CARBON DIOXIDE 32 mmol/L (22-30); CHLORIDE 99 mmol/L (98-107); CREATININE RESULT 1.71 mg/dL (0.52-1.25); GLUCOSE 98 mg/dL (75-110); POTASSIUM 5.2 mmol/L (3.6-5.0); SODIUM 137.6 mmol/L (137-145); TOTAL PROTEIN 6.8 g/dL (6.3-8.2)
[2017-06-13] MEDS: SIMVASTATIN 10 MG TABLET PO SCH (21:13)
[2017-06-14] MEDS: LANSOPRAZOLE 15 MG TAB.RAP.DR PO SCH (05:47)
[2017-06-14] MEDS: METOPROLOL SUCCINATE 25 MG TAB.SR.24H PO SCH (09:27)
[2017-06-14] MEDS: FUROSEMIDE 40 MG TABLET PO SCH (09:34)
[2017-06-14] MEDS: APIXABAN 2.5 MG TABLET PO SCH ×2 (09:34→17:07)
[2017-06-14] MEDS: NYSTATIN TOPICAL POWDER 15 GM TP SCH ×2 (09:34→17:07)
--- NOTE | 2017-06-14 21:31 | PDOC PROGRESS REPORT ---
Subjective Progress Note for:: 06/14/17 Subjective:: Discharge planning is making arrangement for long-term acute care facility for patient to be discharged to Reason For Visit: ACUTE ON CHRONIC CONGESTIVE HEART FAILURE Physical Exam Vital Signs: Temp Pulse Resp BP Pulse Ox 97.9 F 97 18 103/70 100 06/14/17 19:40 06/14/17 19:40 06/14/17 19:40 06/14/17 19:40 06/14/17 19:40 Intake & Output 06/13/17 06/14/17 06/15/17 06:59 06:59 06:59 Intake Total 1500 964 781 Balance 1500 964 781 General appearance: PRESENT: no acute distress Eye exam: PRESENT: PERRLA Respiratory exam: PRESENT: clear to auscultation dell Cardiovascular exam: PRESENT: +S1, +S2 GI/Abdominal exam: PRESENT: soft Results Laboratory Results: 06/13/17 13:40 06/13/17 13:40 Impressions: Chest X-Ray 05/29/17 18:01 IMPRESSION: CARDIAC ENLARGEMENT. VASCULAR CONGESTION. RIGHT BASILAR ATELECTASIS OR INFILTRATE WITH PLEURAL EFFUSION. Assessment & Plan - Diagnosis (1) A-fib Qualifiers: Atrial fibrillation type: chronic Qualified Code(s): I48.2 - Chronic atrial fibrillation Is this a current diagnosis for this admission?: Yes (2) Acute diastolic heart failure Is this a current diagnosis for this admission?: Yes (3) Acute on chronic combined systolic (congestive) and diastolic (congestive) heart failure Is this a current diagnosis for this admission?: Yes (4) Acute respiratory failure Qualifiers: Respiratory failure complication: hypoxia and hypercapnia Qualified Code(s) : J96.01 - Acute respiratory failure with hypoxia; J96.02 - Acute respiratory failure with hypercapnia; J96.02 - Acute respiratory failure with hypercapnia; J96.02 - Acute respiratory failure with hypercapnia Is this a current diagnosis for this admission?: Yes (5) Anasarca Is this a current diagnosis for this admission?: Yes (6) Atrial fibrillation with controlled ventricular response Is this a current diagnosis for this admission?: Yes (7) Bilateral leg ulcer Is this a current diagnosis for this admission?: Yes (8) Body mass index 50.0-59.9, adult Is this a current diagnosis for this admission?: Yes (9) Chronic atrial fibrillation with rapid ventricular response Is this a current diagnosis for this admission?: Yes (10) Chronic cutaneous venous stasis ulcer Is this a current diagnosis for this admission?: Yes
[2017-06-14] MEDS: SIMVASTATIN 10 MG TABLET PO SCH (22:06)
[2017-06-15] MEDS: LANSOPRAZOLE 15 MG TAB.RAP.DR PO SCH (06:41)
[2017-06-15] MEDS: APIXABAN 2.5 MG TABLET PO SCH ×2 (09:56→17:22)
[2017-06-15] MEDS: NYSTATIN TOPICAL POWDER 15 GM TP SCH ×2 (09:57→17:22)
[2017-06-15] MEDS: FUROSEMIDE 40 MG TABLET PO SCH (09:59)
[2017-06-15] MEDS: METOPROLOL SUCCINATE 25 MG TAB.SR.24H PO SCH (10:00)
--- NOTE | 2017-06-15 22:14 | PDOC PROGRESS REPORT ---
Subjective Progress Note for:: 06/15/17 Subjective:: Patient is seen by the bedside, hopefully be transferred to long-term acute care hospital as soon as bed is available Reason For Visit: ACUTE ON CHRONIC CONGESTIVE HEART FAILURE Physical Exam Vital Signs: Temp Pulse Resp BP Pulse Ox 97.5 F 63 20 106/59 L 100 06/15/17 15:59 06/15/17 20:30 06/15/17 20:30 06/15/17 20:30 06/15/17 20:30 Intake & Output 06/14/17 06/15/17 06/16/17 06:59 06:59 06:59 Intake Total 964 1141 601 Balance 964 1141 601 General appearance: PRESENT: no acute distress Eye exam: PRESENT: PERRLA Respiratory exam: PRESENT: clear to auscultation dell Cardiovascular exam: PRESENT: +S1, +S2 GI/Abdominal exam: PRESENT: soft Extremities exam: PRESENT: pedal edema Neurological exam: PRESENT: alert Results Laboratory Results: 06/13/17 13:40 06/13/17 13:40 Impressions: Chest X-Ray 05/29/17 18:01 IMPRESSION: CARDIAC ENLARGEMENT. VASCULAR CONGESTION. RIGHT BASILAR ATELECTASIS OR INFILTRATE WITH PLEURAL EFFUSION. Assessment & Plan - Diagnosis (1) A-fib Qualifiers: Atrial fibrillation type: chronic Qualified Code(s): I48.2 - Chronic atrial fibrillation Is this a current diagnosis for this admission?: Yes (2) Acute diastolic heart failure Is this a current diagnosis for this admission?: Yes (3) Acute on chronic combined systolic (congestive) and diastolic (congestive) heart failure Is this a current diagnosis for this admission?: Yes (4) Acute respiratory failure Qualifiers: Respiratory failure complication: hypoxia and hypercapnia Qualified Code(s) : J96.01 - Acute respiratory failure with hypoxia; J96.02 - Acute respiratory failure with hypercapnia; J96.02 - Acute respiratory failure with hypercapnia; J96.02 - Acute respiratory failure with hypercapnia Is this a current diagnosis for this admission?: Yes (5) Anasarca Is this a current diagnosis for this admission?: Yes (6) Atrial fibrillation with controlled ventricular response Is this a current diagnosis for this admission?: Yes (7) Bilateral leg ulcer Is this a current diagnosis for this admission?: Yes (8) Body mass index 50.0-59.9, adult Is this a current diagnosis for this admission?: Yes (9) Chronic atrial fibrillation with rapid ventricular response Is this a current diagnosis for this admission?: Yes (10) Chronic cutaneous venous stasis ulcer Is this a current diagnosis for this admission?: Yes
[2017-06-15] MEDS: SIMVASTATIN 10 MG TABLET PO SCH (22:20)
[2017-06-15] MEDS ORDERED: ACETAMINOPHEN 325 MG TABLET ONE (23:50)
[2017-06-16] MEDS ORDERED: ACETAMINOPHEN 325 MG TABLET PO PRN (00:20)
[2017-06-16] MEDS: IPRATROPIUM/ALBUTEROL 0.5-2.5 MG/3 ML AMPUL NEB PRN (05:34)
[2017-06-16] MEDS: LANSOPRAZOLE 15 MG TAB.RAP.DR PO SCH (06:08)
[2017-06-16] MEDS: FUROSEMIDE 40 MG TABLET PO SCH (11:07)
[2017-06-16] MEDS: APIXABAN 2.5 MG TABLET PO SCH ×2 (11:07→19:10)
[2017-06-16] MEDS: METOPROLOL SUCCINATE 25 MG TAB.SR.24H PO SCH (11:08)
--- NOTE | 2017-06-16 15:32 | PDOC TRANSFER SUMMARY ---
General - Admit/Disc Date/PCP Admission Date/Primary Care Provider: 05/29/17 20:16 ZOYA LEONE MD Discharge Date: 06/16/17 - Discharge Diagnosis (1) Acute diastolic heart failure Is this a current diagnosis for this admission?: Yes (2) A-fib Is this a current diagnosis for this admission?: Yes (3) Acute on chronic combined systolic (congestive) and diastolic (congestive) heart failure Is this a current diagnosis for this admission?: Yes (4) Acute respiratory failure Is this a current diagnosis for this admission?: Yes (5) Anasarca Is this a current diagnosis for this admission?: Yes (6) Atrial fibrillation with controlled ventricular response Is this a current diagnosis for this admission?: Yes (7) Bilateral leg ulcer Is this a current diagnosis for this admission?: Yes (8) Body mass index 50.0-59.9, adult Is this a current diagnosis for this admission?: Yes (9) Chronic atrial fibrillation with rapid ventricular response Is this a current diagnosis for this admission?: Yes (10) Chronic cutaneous venous stasis ulcer Is this a current diagnosis for this admission?: Yes - Additional Information Resuscitation Status: Full Code Discharge Diet: Cardiac Discharge Activity: Activity As Tolerated, Balance Activity w/Rest, Weigh Daily Home Medications: Lisinopril [Prinivil] 20 mg PO DAILY 04/18/17 Simvastatin [Zocor 10 mg Tablet] 10 mg PO QPM 04/18/17 Apixaban [Eliquis 2.5 mg Tablet] 2.5 mg PO BID tablet 04/26/17 Metoprolol Succinate [Toprol Xl 25 mg Tab.sr] 25 mg PO DAILY tab.sr.24h Torsemide [Demadex 20 mg Tablet] 10 mg PO DAILY tablet 04/26/17 Omeprazole 20 mg PO DAILY 05/29/17 History of Present Illness Admission Date/PCP: 05/29/17 20:16 ZOYA LEONE MD History of Present Illness: ELEONORA SHEFFIELD is a 56 year old male patient of Dr Leone who was brought to the ED by EMS due to worsening difficulty with breathing and excessive weight gain. He was discharged from local SNF couple of days ago. He admitted to inability to fill one of his prescription particularly a diuretic and have been off the medication for about 2 days prior to his presentation to the ED. Patient admitted to less compliance with fluid intake restrictions. His associated symptoms include orthopnea for which he slept in recliner chair with resultant swelling in his legs, exertional dyspnea with limitation in level of functioning to almost bedbound, felling of chest tightness and nonproductive coughing. He denied any chest pain, fever, chills, dysuria, or flank pain. No abdominal pain, nausea or vomiting. He arrived in the ED on CPAP support. His initial assessment in the ED revealed cardiology with vascular congestion and right sided atelectasis as well as pleural effusion on chest X ray. His NT-Pro- BNP was elevated. His morbidities include Chronic Atrial Fibrillation, Congestive Heart Failure, Coronary Artery Disease, Hypertension, Hypercholesterolemia, Peripheral Vascular Disease, Pulmonary Embolism, COPD, Obstructive Sleep Apnea, Renal Insufficiency, Gastritis, Ulcerative Colitis, Osteoarthritis, and Depression. He was advised hospitalization due to his presentation, clinical findings, and laboratory assessment findings. Hospital Course Hospital Course: Patient is a 56-year-old male with a history of chronic diastolic heart failure , morbid obesity, pulmonary hypertension with multiple atrial admission for decompensated chronic diastolic heart failure, he has developed diuretic resistance. He presented with shortness of breath due to multiple factors including morbid obesity, acute on chronic diastolic heart failure, acute hypercapnic respiratory failure, he required noninvasive positive pressure ventilation with BiPAP. He also have stage III -IV sacral decubitus ulcer, this was managed conservatively, he was also seen by the surgeon, the wound culture grew MRSA, he was treated with Bactrim with good result. The wound is improved, on the last admission he underwent excisional debridement of the wound. He also has a history of chronic atrial fibrillation on chronic anticoagulant with Eliquis. He has chronic leg edema due to chronic venous hypertension from combination of hypertension, obesity, venous insufficiency. The plan is to transfer patient to an acute long-term care facility for quality of care, to help with ambulation, patient is severely deconditioned. Before this admission, the last time he was admitted he was transferred to long-term care facility for rehabilitation, he did not seems to like the facility. Physical Exam Vital Signs: Temp Pulse Resp BP Pulse Ox 97.9 F 57 L 17 104/60 100 06/16/17 11:11 06/16/17 11:11 06/16/17 11:11 06/16/17 11:11 06/16/17 11:11 Intake & Output 06/15/17 06/16/17 06/17/17 06:59 06:59 06:59 Intake Total 1141 1224 Balance 1141 1224 General appearance: PRESENT: morbidly obese Eye exam: PRESENT: PERRLA Respiratory exam: PRESENT: clear to auscultation dell Cardiovascular exam: PRESENT: +S1, +S2 GI/Abdominal exam: PRESENT: soft Extremities exam: PRESENT: +2 edema Neurological exam: PRESENT: alert Results Laboratory Results: 06/13/17 13:40 06/13/17 13:40 Impressions: Chest X-Ray 05/29/17 18:01 IMPRESSION: CARDIAC ENLARGEMENT. VASCULAR CONGESTION. RIGHT BASILAR ATELECTASIS OR INFILTRATE WITH PLEURAL EFFUSION.
[2017-06-16 19:46] VITALS: BP 105/68
== END 2017-06-16 20:31 | disposition short-term general hospital (02) | DRG 291 ==
LOC: ER 17:46 → EH 20:16 → 3W 22:48 → 4W 06-10 19:56
PROVIDERS: ADMIT Internal Medicine; ATTEND Internal Medicine
PROC: 5A09557 Assistance with Respiratory Ventilation, Greater than 96 Consecutive Hours, Continuous Positive Airway Pressure (ICD-10-PCS; principal; 2017-05-29)
PROC: 3E0F73Z Introduction of Anti-inflammatory into Respiratory Tract, Via Natural or Artificial Opening (ICD-10-PCS; 2017-05-30)
DX: I11.0 Hypertensive heart disease with heart failure (principal); J96.02 Acute respiratory failure with hypercapnia; L89.154 Pressure ulcer of sacral region, stage 4; J96.01 Acute respiratory failure with hypoxia; L97.929 Non-pressure chronic ulcer of unspecified part of left lower leg with unspecified severity; L97.919 Non-pressure chronic ulcer of unspecified part of right lower leg with unspecified severity; Z68.43 Body mass index [BMI] 50.0-59.9, adult; I87.319 Chronic venous hypertension (idiopathic) with ulcer of unspecified lower extremity; R18.8 Other ascites; E66.2 Morbid (severe) obesity with alveolar hypoventilation; N17.9 Acute kidney failure, unspecified; I50.43 Acute on chronic combined systolic (congestive) and diastolic (congestive) heart failure; I48.2 Chronic atrial fibrillation; I25.10 Atherosclerotic heart disease of native coronary artery without angina pectoris; G47.33 Obstructive sleep apnea (adult) (pediatric); M19.90 Unspecified osteoarthritis, unspecified site; F32.9 Major depressive disorder, single episode, unspecified; E78.00 Pure hypercholesterolemia, unspecified; E11.51 Type 2 diabetes mellitus with diabetic peripheral angiopathy without gangrene; J44.9 Chronic obstructive pulmonary disease, unspecified; I42.9 Cardiomyopathy, unspecified; B96.20 Unspecified Escherichia coli [E. coli] as the cause of diseases classified elsewhere; B95.62 Methicillin resistant Staphylococcus aureus infection as the cause of diseases classified elsewhere; Z79.899 Other long term (current) drug therapy; Z86.711 Personal history of pulmonary embolism; Z79.01 Long term (current) use of anticoagulants; Z87.891 Personal history of nicotine dependence; Z82.3 Family history of stroke; Z82.49 Family history of ischemic heart disease and other diseases of the circulatory system; Z83.6 Family history of other diseases of the respiratory system
CPT/HCPCS: 36415; 71010; 80048; 80053; 81001; 82550; 82553; 82803; 83735; 83880; 84484; 85025; 85610; 85730; 87040; 87070; 87077; 87186; 87205; 93005; 93010; 94640; 94660; 99291; J1940; J3490; J7620

== ENCOUNTER 2017-12-07 04:54 | Inpatient (IN) | payer OTHER, MEDICARE ==
--- NOTE | 2017-12-07 06:30 | ER Document Report ---
ED Extremity Problem, Lower - General Mode of Arrival: Medic Information source: Patient TRAVEL OUTSIDE OF THE [place] IN LAST 30 DAYS: No <KATHLEEN FLYNN - Last Filed: 12/07/17 07:13> <JESS HERRERA - Last Filed: 12/07/17 09:24> - General Chief Complaint: Leg Pain Stated Complaint: LEG PAIN Time Seen by Provider: 12/07/17 06:10 Notes: 57 y.o male with Afib, CHF, CAD presents to the ED with bilateral lower extremity edema and pain, more prominently in the left leg than the right. He reports that his left leg is swollen, red and warm to touch. He states that fluids were coming out of his right leg last week which he had wrapped by his home help. Pt also complains that his "testicles have swollen up" since last week. When pt is asked about his fast breathing rate he is unsure if this is his baseline. (KATHLEEN FLYNN) - Related Data Allergies/Adverse Reactions: No Known Allergies Allergy (Verified 12/07/17 07:22) Past Medical History - General Information source: Patient - Social History Smoking Status: Unknown if Ever Smoked Family History: CAD, COPD, CVA, DM, Hypertension Patient has suicidal ideation: No Patient has homicidal ideation: No - Past Medical History Cardiac Medical History: Reports: Hx Atrial Fibrillation, Hx Congestive Heart Failure, Hx Coronary Artery Disease, Hx Hypercholesterolemia, Hx Hypertension, Hx Peripheral Vascular Disease, Hx Pulmonary Embolism Pulmonary Medical History: Reports: Hx COPD, Hx Sleep Apnea Renal/ Medical History: Reports: Hx Renal Insufficiency. Denies: Hx Peritoneal Dialysis GI Medical History: Reports: Hx Gastritis, Hx Ulcerative Colitis Musculoskeltal Medical History: Reports Hx Arthritis Psychiatric Medical History: Reports: Hx Depression Past Surgical History: Reports: Hx Tonsillectomy, Other - Tooth extraction - Immunizations Hx Diphtheria, Pertussis, Tetanus Vaccination: No <KATHLEEN FLYNN - Last Filed: 12/07/17 07:13> Review of Systems - Review of Systems Constitutional: No symptoms reported EENT: No symptoms reported Cardiovascular: No symptoms reported Respiratory: No symptoms reported Gastrointestinal: No symptoms reported Genitourinary: No symptoms reported Male Genitourinary: No symptoms reported Musculoskeletal: No symptoms reported Skin: See HPI, Change in color, Other - edema to bilatteral lower extremities and scrotum. Hematologic/Lymphatic: No symptoms reported Neurological/Psychological: No symptoms reported -: Yes All other systems reviewed and negative <KATHLEEN FLYNN - Last Filed: 12/07/17 07:13> Physical Exam <KATHLEEN FLYNN - Last Filed: 12/07/17 07:13> <JESS HERRERA - Last Filed: 12/07/17 09:24> - Vital signs Vitals: Pulse Ox 95 12/07/17 05:13 - Notes Notes: Physical Exam: General: Alert. Morbidly obese, bed bound. HEENT: Normocephalic. Atraumatic. PERRL. Extraocular movements intact. Oropharynx clear. Neck: Supple. Non-tender. Respiratory: Tachypnic rate. Clear and equal breath sounds bilaterally. Cardiovascular: Irregularly irregular rate and rhythm. Abdominal: Morbidly obese. Normal Inspection. Non-tender. No distension. Normal Bowel Sounds. Back: Non-tender. No deformity or step off. Extremities: Upper extremities: Normal inspection. Normal ROM. Lower extremities: Right proximal thigh medially swollen with induration and edema which is chronic. Leg compression elastic bandage wrapped on RT leg. Left leg is soft and not edematous above the knee. Left leg below the knee is with edema, erythema and induration. Neurological: Normal cognition. AAOx3. Normal speech. Genitourinary: Scrotal edema. (KATHLEEN FLYNN) Course - Laboratory Result Diagrams: 12/07/17 07:00 12/07/17 07:00 <KATHLEEN FLYNN - Last Filed: 12/07/17 07:13> - Laboratory Result Diagrams: 12/07/17 07:00 12/07/17 07:00 - Diagnostic Test Radiology reviewed: Image reviewed, Reports reviewed - Cardiomegaly, pulmonary vascular congestion, right pleural effusion with atelectasis - EKG Interpretation by Vt EKG shows normal: [place], Intervals, ST-T Waves. abnormal: QRS Complexes - Old inferior PR Rate: Tachycardia - 137 Rhythm: A.Fib When compared to previous EKG there are: No significant change - Consults Dr. Ny Time consulted: 08:35 Consulted provider: will see as inpatient - [facility] admit <JESS HERRERA - Last Filed: 12/07/17 09:24> - Re-evaluation Re-evalutation: 12/07/17 08:43 Patient serum CO2 is 18, his baseline is 29-32. Patient's venous blood gas shows a pH of 7.28 and a PCO2 of 38. His baseline venous PCO2 is about 55 so he is breathing fast. Chest x-ray shows some mild pulmonary vascular congestion which is not unusual for him, while at the same time his BNP is 11, 100 which is about half of what it has been on most the times it is checked. Lactic acid is not elevated. (JESS HERRERA) - Vital Signs Vital signs: Temp Pulse Resp BP Pulse Ox 99.7 F 30 H 94/65 L 95 12/07/17 09:00 12/07/17 09:01 12/07/17 09:01 12/07/17 05:13 - Laboratory Laboratory results interpreted by me: 12/07/17 12/07/17 12/07/17 07:00 07:00 07:00 WBC 12.2 H RBC 4.07 L Hgb 10.6 L Hct 32.8 L MCH 26.1 L RDW 16.6 H Seg Neuts % (Manual) 88 H Lymphocytes % (Manual) 5 L Abs Neuts (Manual) 10.7 H VBG pH VBG HCO3 Chloride 109 H Carbon Dioxide 18 L BUN 35 H Creatinine 1.64 H Est GFR ( Amer) 53 L Est GFR (Non-Af Amer) 44 L Total Bilirubin 3.3 H Direct Bilirubin 2.4 H NT-Pro-B Natriuret Pep 41750 H Albumin 3.4 L 12/07/17 07:00 WBC RBC Hgb Hct MCH RDW Seg Neuts % (Manual) Lymphocytes % (Manual) Abs Neuts (Manual) VBG pH 7.28 L VBG HCO3 17.5 L Chloride Carbon Dioxide BUN Creatinine Est GFR ( Amer) Est GFR (Non-Af Amer) Total Bilirubin Direct Bilirubin NT-Pro-B Natriuret Pep Albumin Discharge <KATHLEEN FLYNN - Last Filed: 12/07/17 07:13> - Discharge Admitting Provider: [facility] Unit Admitted: [facility] <JESS HERRERA - Last Filed: 12/07/17 09:24> - Discharge Clinical Impression: Atrial fibrillation with controlled ventricular response, Morbid obesity, Chronic atrial fibrillation, Chronic cutaneous venous stasis ulcer, Anasarca, Cellulitis of left lower leg, Metabolic acidosis Condition: Good Disposition: ADMITTED INPATIENT Scribe Attestation: 12/07/17 07:45 I personally performed the services described in the documentation, reviewed and edited the documentation which was dictated to the scribe in my presence, and it accurately records my words and actions. (JESS HERRERA) Scribe Documentation - Scribe Written by Robert:: Robert Jimenez [id number] 12/07/17 acting as scribe for :: Alexander <KATHLEEN FLYNN - Last Filed: 12/07/17 07:13>
--- NOTE | 2017-12-07 07:17 | RADIOLOGY REPORT (SQ) ---
EXAM DESCRIPTION: Single view of the chest CLINICAL HISTORY: Leg swelling, scrotal edema, short of breath COMPARISON: 05/29/2017 FINDINGS: Single frontal view of the chest. Moderate cardiomegaly. Pulmonary vascular congestion. Right basilar opacity. No pneumothorax. Leads overlie the chest. No acute osseous abnormalities identified. Upper abdominal soft tissues are unremarkable. IMPRESSION: 1. Cardiomegaly with pulmonary vascular congestion. 2. Right basilar opacity likely represents pleural effusion with superimposed atelectasis or consolidation. Continued radiographic follow-up recommended.
[2017-12-07 07:19] LABS: HEMATOCRIT 32.8 % (37.9-51.0); HEMOGLOBIN 10.6 g/dL (13.5-17.0); MEAN CORPUSCULAR HEMOGLOBIN 26.1 pg (27.0-33.4); MEAN CORPUSCULAR HGB CONC 32.5 g/dL (32.0-36.0); MEAN CORPUSCULAR VOLUME 80 fl (80-97); PLATELET COUNT 217 10^3/uL (150-450); RED BLOOD COUNT 4.07 10^6/uL (4.35-5.55); RED CELL DISTRIBUTION WIDTH 16.6 % (11.5-14.0); VENOUS BLOOD BASE EXCESS -8.5 mmol/L; VENOUS BLOOD HCO3 17.5 mmol/L (20-32); VENOUS BLOOD PCO2 37.9 mmHg (35-63); VENOUS BLOOD PH 7.28 (7.30-7.42); WHITE BLOOD COUNT 12.2 10^3/uL (4.0-10.5)
[2017-12-07 07:35] LABS: ALANINE AMINOTRANSFERASE 31 U/L (21-72); ALBUMIN 3.4 g/dL (3.5-5.0); ALKALINE PHOSPHATASE 77 U/L (38-126); ANION GAP 14 (5-19); ASPARTATE AMINO TRANSFERASE 34 U/L (17-59); BILIRUBIN,DIRECT 2.4 mg/dL (0.0-0.4); BILIRUBIN,TOTAL 3.3 mg/dL (0.2-1.3); BLOOD UREA NITROGEN 35 mg/dL (7-20); CALCIUM 8.9 mg/dL (8.4-10.2); CARBON DIOXIDE 18 mmol/L (22-30); CHLORIDE 109 mmol/L (98-107); CREATINE KINASE 60 U/L (55-170); GLUCOSE 83 mg/dL (75-110); POTASSIUM 4.4 mmol/L (3.6-5.0); SODIUM 141.3 mmol/L (137-145); TOTAL PROTEIN 7.8 g/dL (6.3-8.2)
[2017-12-07 08:01] LABS: TROPONIN I 0.041 ng/mL
[2017-12-07 08:27] LABS: ABSOLUTE LYMPHOCYTES# (MANUAL) 0.7 10^3/uL (0.5-4.7); ABSOLUTE MONOCYTES # (MANUAL) 0.5 10^3/uL (0.1-1.4); ABSOLUTE NEUTROPHILS# (MANUAL) 10.7 10^3/uL (1.7-8.2); BASOPHILS % (MANUAL) 1 % (0-2); EOSINOPHILS % (MANUAL) 1 % (0-6); LYMPHOCYTES % (MANUAL) 5 % (13-45); MONOCYTES % (MANUAL) 4 % (3-13); SEGMENTED NEUTROPHILS % (MAN) 88 % (42-78); TOTAL CELLS COUNTED 100
[2017-12-07 08:29] LABS: ANISOCYTOSIS 1+; BURR CELLS SLIGHT; OVALOCYTES 1+; PLATELET COMMENT ADEQUATE; POIKILOCYTOSIS 1+; TOXIC GRANULATION 2+; TOXIC VACUOLATION PRESENT
[2017-12-07] MEDS ORDERED: CLINDAMYCIN 600 MG/D5W RTU 600 MG/50 ML RTUPB IV ONE (08:45)
[2017-12-07 10:19] LABS: APPEARANCE,URINE CLEAR; BILIRUBIN,URINE NEGATIVE (NEGATIVE); COLOR,URINE DARK YELLOW; GLUCOSE, URINE NEGATIVE (NEGATIVE); KETONES,URINE TRACE mg/dL (NEGATIVE); LEUKOCYTE ESTERASE,URINE NEGATIVE (NEGATIVE); NITRITE,URINE NEGATIVE (NEGATIVE); PROTEIN,URINE 30 mg/dL (NEGATIVE); URINE SPECIFIC GRAVITY 1.012
[2017-12-07] MEDS ORDERED: (PENDING PHARMACY ID) (Lisinopril [Prinivil] 20 MG) PO SCH (12:15)
[2017-12-07 12:23] LABS: LIPASE 99.3 U/L (23-300)
[2017-12-07 12:41] LABS: FREE T4 (FREE THYROXINE) 1.88 ng/dL (0.78-2.19)
[2017-12-07 12:55] LABS: THYROID STIMULATING HORMONE 1.81 uIU/mL (0.47-4.68)
[2017-12-07] MEDS: LISINOPRIL 10 MG TABLET PO SCH (13:04)
[2017-12-07] MEDS: CLINDAMYCIN 600 MG/D5W RTU 600 MG/50 ML RTUPB IV SCH ×2 (13:08→22:01)
[2017-12-07 15:09] LABS: ARTERIAL BLOOD BASE EXCESS -7.4 mmol/L; ARTERIAL BLOOD H2CO3 0.95 mmol/L (1.05-1.35); ARTERIAL BLOOD HCO3 17.2 mmol/L (20-26); ARTERIAL BLOOD O2 SATURATION 78.5 % (94-98); ARTERIAL BLOOD PCO2 31.6 mmHg (35-45); ARTERIAL BLOOD PH 7.35 (7.35-7.45); ARTERIAL BLOOD TOTAL CO2 18.1 mmol/L (23-27)
[2017-12-07 15:10] LABS: ARTERIAL BLOOD FIO2 3L
[2017-12-07 17:36] LABS: URINE AMPHETAMINES SCREEN NEGATIVE; URINE BARBITURATES SCREEN NEGATIVE; URINE BENZODIAZEPINES SCREEN NEGATIVE; URINE COCAINE SCREEN NEGATIVE; URINE MARIJUANA (THC) SCREEN NEGATIVE; URINE METHADONE SCREEN NEGATIVE; URINE PHENCYCLIDINE SCREEN NEGATIVE
--- NOTE | 2017-12-07 18:36 | PDOC H&P ---
History of Present Illness Admission Date/PCP: 12/07/17 08:54 ZOYA LEONE MD History of Present Illness: ELEONORA SHEFFIELD is a 57 year old male, He has chronic diastolic heart failure, morbid obesity body mass index 48.8,, anasarca secondary to multiple factors including nephrotic syndrome, chronic diastolic heart failure, pulmonary hypertension, sedentary existence, he came to the emergency room for evaluation of leg pain, the left leg is inflamed, tender to touch red consistent with cellulitis, the right leg is wrapped in Unaboot. Patient is well-known to me he has multiple hospitalization from previous encounters, I discussed with him and his family on multiple occasions on CODE STATUS he always intended to be a DNR I again discussed with him on this admission and he again stated that he wants to be a DNR, the nursing staff in the emergency room indicated to me that he spoke to him and he told him he wants to be a full code but I am not getting the same information that he got from him I would maintain his DNR status according to his wishes. The blood gas on FiO2 of 3 L, pH 7.35 PCO2 31.6, bicarbonate 17.2 this is consistent with metabolic acidosis combined with respiratory alkalosis, chest x-ray showed volume overload. Patient is on megadoses of diuretic the blood pressure on the low side. He has history of chronic fibrillation on anticoagulant Past Medical History Cardiac Medical History: Reports: Atrial Fibrillation, Congestive Heart Failure , Coronary Artery Disease, Hyperlipidema, Hypertension, Peripheral Vascular Disease, Pulmonary Embolism Pulmonary Medical History: Reports: Chronic Obstructive Pulmonary Disease (COPD) , Sleep Apnea Musculoskeltal Medical History: Reports: Arthritis Past Surgical History Past Surgical History: Reports: Tonsillectomy, Other - Tooth extraction Social History Smoking Status: Former Smoker Number of Years Smokin Frequency of Alcohol Use: None Hx Recreational Drug Use: No Drugs: None Hx Prescription Drug Abuse: No - Advance Directive Resuscitation Status: Full Code Family History Family History: CAD, COPD, CVA, DM, Hypertension Parental Family History Reviewed: Yes Children Family History Reviewed: Yes Sibling(s) Family History Reviewed.: Yes Medication/Allergy Home Medications: Lisinopril [Prinivil] 20 mg PO DAILY 04/18/17 Apixaban [Eliquis 2.5 mg Tablet] 2.5 mg PO Q12 12/07/17 Furosemide [Lasix 40 mg Tablet] mg PO 12/07/17 Torsemide [Demadex 20 mg Tablet] 20 mg PO DAILY 12/07/17 Allergies/Adverse Reactions: No Known Allergies Allergy (Verified 12/07/17 07:22) Review of Systems Constitutional: PRESENT: chills, fatigue, weakness, weight gain Cardiovascular: PRESENT: dyspnea on exertion, edema, orthropnea Respiratory: PRESENT: dyspnea Gastrointestinal: PRESENT: nausea Neurological: PRESENT: dizziness, frequent falls, numbness, paresthesias Endocrine: PRESENT: cold intolerance Hematologic/Lymphatic: ABSENT: easy bleeding, easy bruising, lymphadenopathy Physical Exam Vital Signs: Temp Pulse Resp BP Pulse Ox 99.7 F 110 H 18 78/53 L 92 12/07/17 09:00 12/07/17 16:20 12/07/17 15:01 12/07/17 15:01 12/07/17 15:01 Intake & Output 12/06/17 12/07/17 12/08/17 06:59 06:59 06:59 Intake Total 175 Balance 175 General appearance: PRESENT: other - Patient is chronically ill looking seems to be short of breath Head exam: PRESENT: atraumatic, normocephalic Eye exam: PRESENT: PERRLA Ear exam: PRESENT: normal external ear exam Mouth exam: PRESENT: dry mucosa Neck exam: PRESENT: full ROM Respiratory exam: PRESENT: rales Cardiovascular exam: PRESENT: RRR, +S1, +S2, systolic murmur GI/Abdominal exam: PRESENT: ascites, normal bowel sounds, soft Extremities exam: PRESENT: joint swelling, pedal edema Neurological exam: PRESENT: alert. ABSENT: motor sensory deficit Skin exam: PRESENT: other - There is anasarca, redness swelling of the left leg , Unna boot on the right leg Results Laboratory Results: 12/07/17 12/07/17 09:42 14:55 Carbonic Acid 0.95 L HCO3/H2CO3 Ratio 18:1 ABG pH 7.35 ABG pCO2 31.6 L ABG pO2 44.0 L ABG HCO3 17.2 L ABG O2 Saturation 78.5 L ABG Base Excess -7.4 FiO2 3L Urine Color DARK YELLOW Urine Appearance CLEAR Urine pH 5.0 Ur Specific [place] 1.012 Urine Protein 30 H Urine Glucose (UA) NEGATIVE Urine Ketones TRACE H Urine Blood SMALL H Urine Nitrite NEGATIVE Ur Leukocyte Esterase NEGATIVE Urine WBC (Auto) 1 Urine RBC (Auto) 1 12/07/17 14:03 Troponin I 0.041 Impressions: Chest X-Ray 12/07/17 06:36 IMPRESSION: 1. Cardiomegaly with pulmonary vascular congestion. 2. Right basilar opacity likely represents pleural effusion with superimposed atelectasis or consolidation. Continued radiographic follow-up recommended. Assessment & Plan - Diagnosis (1) Cellulitis of left leg Is this a current diagnosis for this admission?: Yes Plan: Patient with a history of MRSA cellulitis, we will empirically treat with IV clindamycin (2) Metabolic acidosis with respiratory alkalosis Is this a current diagnosis for this admission?: Yes Plan: He has combination of metabolic acidosis with respiratory alkalosis, the metabolic acidosis is most likely from infection, patient is hyperventilating because of fluid in the lung parenchyma most likely from acute diastolic heart failure, blood pressure is too low to initiate diuresis at this time (3) Acute on chronic diastolic heart failure Is this a current diagnosis for this admission?: Yes (4) Hypotension Qualifiers: Hypotension type: unspecified hypotension type Qualified Code(s): I95.9 - Hypotension, unspecified Is this a current diagnosis for this admission?: Yes Plan: Blood pressure is low we start patient on dopamine, I would prefer norepinephrine but that can only be administered in ICU, patient is a DNR presently in IMCU does not believe it will need much vasopressor to improve blood pressure. He is probably depleted intravascularly with a low effective plasma volume because of the chronic use of diuretic (5) Anasarca Is this a current diagnosis for this admission?: Yes (6) Chronic atrial fibrillation Is this a current diagnosis for this admission?: Yes Plan: Continue anticoagulation
[2017-12-07] MEDS ORDERED: DOPAMINE HCL/DEXTROSE 5%-WATER 800 MG/250 ML RTUINJ IV PRN (18:37)
[2017-12-07] MEDS: APIXABAN 2.5 MG TABLET PO SCH (22:00)
[2017-12-07] MEDS: ACETAMINOPHEN 325 MG TABLET PO PRN (22:01)
--- NOTE | 2017-12-07 23:37 | EKG REPORT ---
SEVERITY:- ABNORMAL ECG - ATRIAL FIBRILLATION, V-RATE 97-172 BORDERLINE IVCD WITH LAD INFERIOR INFARCT, AGE INDETERMINATE CONSIDER ANTERIOR INFARCT LATERAL LEADS ARE ALSO INVOLVED : Confirmed by: Nara Ferrari 07-Dec-2017 23:37:06
[2017-12-08] MEDS: CLINDAMYCIN 600 MG/D5W RTU 600 MG/50 ML RTUPB IV SCH ×3 (05:21→22:11)
[2017-12-08 06:55] LABS: ABSOLUTE EOSINOPHILS # (AUTO) 0.2 10^3/uL (0.0-0.6); ABSOLUTE LYMPHOCYTES (AUTO) 0.5 10^3/uL (0.5-4.7); ABSOLUTE MONOCYTES (AUTO) 0.6 10^3/uL (0.1-1.4); ABSOLUTE NEUT (AUTO) 7.6 10^3/uL (1.7-8.2); BASOPHILS % (AUTO) 0.4 % (0-2); EOSINOPHILS % (AUTO) 2.5 % (0-6); HEMATOCRIT 31.8 % (37.9-51.0); HEMOGLOBIN 10.5 g/dL (13.5-17.0); LYMPHOCYTES % (AUTO) 5.6 % (13-45); MEAN CORPUSCULAR HEMOGLOBIN 26.3 pg (27.0-33.4); MEAN CORPUSCULAR HGB CONC 33.1 g/dL (32.0-36.0); MEAN CORPUSCULAR VOLUME 80 fl (80-97); MONOCYTES % (AUTO) 6.8 % (3-13); PLATELET COUNT 236 10^3/uL (150-450); RED CELL DISTRIBUTION WIDTH 16.9 % (11.5-14.0); SEGMENTED NEUTROPHILS % (AUTO) 84.7 % (42-78); TOTAL CELLS COUNTED % (AUTO) 100 %
[2017-12-08 07:09] LABS: ALANINE AMINOTRANSFERASE 31 U/L (21-72); ALBUMIN 2.8 g/dL (3.5-5.0); ALKALINE PHOSPHATASE 65 U/L (38-126); ANION GAP 14 (5-19); ASPARTATE AMINO TRANSFERASE 24 U/L (17-59); BILIRUBIN,DIRECT 2.4 mg/dL (0.0-0.4); BILIRUBIN,TOTAL 3.1 mg/dL (0.2-1.3); BLOOD UREA NITROGEN 34 mg/dL (7-20); CALCIUM 8.3 mg/dL (8.4-10.2); CARBON DIOXIDE 17 mmol/L (22-30); CHLORIDE 110 mmol/L (98-107); GLUCOSE 95 mg/dL (75-110); POTASSIUM 4.1 mmol/L (3.6-5.0); SODIUM 141.1 mmol/L (137-145); TOTAL PROTEIN 6.7 g/dL (6.3-8.2); TRIGLYCERIDES 82 mg/dL (<150)
[2017-12-08 07:23] LABS: CHOLESTEROL < 50.00 mg/dL (0-200); DIRECT LDL < 30 mg/dL (<100)
[2017-12-08] MEDS ORDERED: ENOXAPARIN SODIUM INJ 40 MG/0.4 ML DISP.SYRIN SUBCUT SCH (10:00)
[2017-12-08] MEDS: APIXABAN 2.5 MG TABLET PO SCH ×2 (10:22→22:11)
[2017-12-08] MEDS: LISINOPRIL 10 MG TABLET PO SCH (14:00)
--- NOTE | 2017-12-08 14:45 | PDOC PROGRESS REPORT ---
Subjective Progress Note for:: 12/08/17 Subjective:: Patient was seen by the bedside, he did not require dopamine for the blood pressure support, the blood pressure is low normal, not able to use diuretic, there is evidence of acute kidney injury most likely prerenal, patient will be started on low-dose IV fluid Reason For Visit: ACUTE METABOLIC ACIDOSIS,CELLULITIS,ACUTE Physical Exam Vital Signs: Temp Pulse Resp BP Pulse Ox 98.3 F 97 24 H 103/58 L 92 12/08/17 12:02 12/08/17 12:02 12/08/17 12:02 12/08/17 12:02 12/08/17 12:02 Intake & Output 12/07/17 12/08/17 12/09/17 06:59 06:59 06:59 Intake Total 245 286 Balance 245 286 Weight 158.77 kg General appearance: PRESENT: mild distress Eye exam: PRESENT: PERRLA Respiratory exam: PRESENT: decreased breath sounds Cardiovascular exam: PRESENT: +S1, +S2, systolic murmur Extremities exam: PRESENT: joint swelling, other - There is chronic venous hypertension of both lower extremities with stasis dermatitis, the Unna boot was removed from the right leg there is area of ulceration on the posterior aspect of the right leg, the also is oval shape, measures about 5 cm in vertical dimension, 2 cm in the horizontal l dimension Neurological exam: PRESENT: alert Results Laboratory Results: 12/08/17 06:07 12/08/17 06:07 12/07/17 12/08/17 12/08/17 14:55 06:07 06:07 WBC 9.0 RBC 4.00 L Hgb 10.5 L Hct 31.8 L MCV 80 MCH 26.3 L MCHC 33.1 RDW 16.9 H Plt Count 236 Seg Neutrophils % 84.7 H Lymphocytes % 5.6 L Monocytes % 6.8 Eosinophils % 2.5 Basophils % 0.4 Absolute Neutrophils 7.6 Absolute Lymphocytes 0.5 Absolute Monocytes 0.6 Absolute Eosinophils 0.2 Absolute Basophils 0.0 Carbonic Acid 0.95 L HCO3/H2CO3 Ratio 18:1 ABG pH 7.35 ABG pCO2 31.6 L ABG pO2 44.0 L ABG HCO3 17.2 L ABG O2 Saturation 78.5 L ABG Base Excess -7.4 FiO2 3L Sodium 141.1 Potassium 4.1 Chloride 110 H Carbon Dioxide 17 L Anion Gap 14 BUN 34 H Creatinine 1.60 H Est GFR ( Amer) 55 L Est GFR (Non-Af Amer) 45 L Glucose 95 Calcium 8.3 L Total Bilirubin 3.1 H AST 24 ALT 31 Alkaline Phosphatase 65 Total Protein 6.7 Albumin 2.8 L Triglycerides 82 Cholesterol < 50.00 LDL Cholesterol Direct < 30 VLDL Cholesterol 16.0 HDL Cholesterol 14 L 12/07/17 12/07/17 12/08/17 14:03 19:57 01:57 Troponin I 0.041 0.044 0.046 Impressions: Chest X-Ray 12/07/17 06:36 IMPRESSION: 1. Cardiomegaly with pulmonary vascular congestion. 2. Right basilar opacity likely represents pleural effusion with superimposed atelectasis or consolidation. Continued radiographic follow-up recommended. Assessment & Plan - Diagnosis (1) Cellulitis of left leg Is this a current diagnosis for this admission?: Yes (2) Metabolic acidosis with respiratory alkalosis Is this a current diagnosis for this admission?: Yes (3) Acute on chronic diastolic heart failure Is this a current diagnosis for this admission?: Yes (4) Hypotension Qualifiers: Hypotension type: unspecified hypotension type Qualified Code(s): I95.9 - Hypotension, unspecified Is this a current diagnosis for this admission?: Yes (5) Anasarca Is this a current diagnosis for this admission?: Yes (6) Chronic atrial fibrillation Is this a current diagnosis for this admission?: Yes (7) Acute kidney injury Is this a current diagnosis for this admission?: Yes Plan: Start 1/2 normal saline at 50 cc/h (8) Ulcer of right lower leg Qualifiers: Non-pressure ulcer stage: with fat layer exposed Qualified Code(s): L97.912 - Non-pressure chronic ulcer of unspecified part of right lower leg with fat layer exposed Is this a current diagnosis for this admission?: Yes (9) Chronic venous hypertension (idiopathic) with inflammation of bilateral lower extremity Is this a current diagnosis for this admission?: Yes
--- NOTE | 2017-12-08 16:14 | Physician Advisory Note ---
Physician Advisor ProgressNote .: Pursuant to the plan for [facility], I have reviewed the medical record for this patient. Physician Advisor Statement: Please document: 1. What is pt's baseline Cr? (to support dx CARROLL) - & state likely underlying cause of CARROLL. Or is CARROLL ruled out? Thanks! CK
[2017-12-08] MEDS: 1/2 NORMAL SALINE 1,000 ML IV PRN (18:43)
[2017-12-08] MEDS: ACETAMINOPHEN 325 MG TABLET PO PRN (22:11)
[2017-12-09] MEDS: CLINDAMYCIN 600 MG/D5W RTU 600 MG/50 ML RTUPB IV SCH ×3 (04:47→21:40)
[2017-12-09 05:32] LABS: ALANINE AMINOTRANSFERASE 26 U/L (21-72); ALBUMIN 2.7 g/dL (3.5-5.0); ALKALINE PHOSPHATASE 64 U/L (38-126); ANION GAP 15 (5-19); ASPARTATE AMINO TRANSFERASE 23 U/L (17-59); BILIRUBIN,TOTAL 2.5 mg/dL (0.2-1.3); BLOOD UREA NITROGEN 33 mg/dL (7-20); CALCIUM 8.3 mg/dL (8.4-10.2); CARBON DIOXIDE 18 mmol/L (22-30); CHLORIDE 111 mmol/L (98-107); GLUCOSE 93 mg/dL (75-110); HEMATOCRIT 32.3 % (37.9-51.0); HEMOGLOBIN 10.6 g/dL (13.5-17.0); MEAN CORPUSCULAR HGB CONC 32.9 g/dL (32.0-36.0); MEAN CORPUSCULAR VOLUME 79 fl (80-97); PLATELET COUNT 273 10^3/uL (150-450); POTASSIUM 4.4 mmol/L (3.6-5.0); RED BLOOD COUNT 4.08 10^6/uL (4.35-5.55); RED CELL DISTRIBUTION WIDTH 16.9 % (11.5-14.0); SODIUM 144.3 mmol/L (137-145); TOTAL PROTEIN 6.6 g/dL (6.3-8.2); WHITE BLOOD COUNT 9.2 10^3/uL (4.0-10.5)
[2017-12-09 05:48] LABS: ABSOLUTE LYMPHOCYTES# (MANUAL) 0.2 10^3/uL (0.5-4.7); ABSOLUTE MONOCYTES # (MANUAL) 0.6 10^3/uL (0.1-1.4); ABSOLUTE NEUTROPHILS# (MANUAL) 7.9 10^3/uL (1.7-8.2); BASOPHILS % (MANUAL) 1 % (0-2); EOSINOPHILS % (MANUAL) 5 % (0-6); LYMPHOCYTES % (MANUAL) 2 % (13-45); MONOCYTES % (MANUAL) 6 % (3-13); SEGMENTED NEUTROPHILS % (MAN) 86 % (42-78); TOTAL CELLS COUNTED 100
[2017-12-09 05:52] LABS: ANISOCYTOSIS 1+; BURR CELLS 1+; HYPOCHROMASIA 1+; OVALOCYTES 1+; SCHISTOCYTES 1+
[2017-12-09 06:09] LABS: PLATELET COMMENT ADEQUATE
[2017-12-09] MEDS: APIXABAN 2.5 MG TABLET PO SCH ×2 (10:37→21:40)
[2017-12-09] MEDS ORDERED: LANSOPRAZOLE 30 MG TAB.RAP.DR PO ONE (12:00)
[2017-12-09] MEDS: LISINOPRIL 10 MG TABLET PO SCH (13:35)
--- NOTE | 2017-12-09 17:47 | PDOC PROGRESS REPORT ---
Subjective Progress Note for:: 12/09/17 Subjective:: He was seen by the bedside, complaining of acid reflux, The kidney function is improved some with hydration, he was over diuresed, presently on slow IV fluid therapy Reason For Visit: ACUTE METABOLIC ACIDOSIS,CELLULITIS,ACUTE Physical Exam Vital Signs: Temp Pulse Resp BP Pulse Ox 98.5 F 77 24 H 115/58 L 91 L 12/09/17 16:11 12/09/17 16:11 12/09/17 16:11 12/09/17 16:11 12/09/17 16:11 Intake & Output 12/08/17 12/09/17 12/10/17 06:59 06:59 06:59 Intake Total 245 1454 200 Balance 245 1454 200 Weight 158.77 kg 154.2 kg 154.2 kg General appearance: PRESENT: mild distress Eye exam: PRESENT: PERRLA, scleral icterus Respiratory exam: PRESENT: rhonchi Cardiovascular exam: PRESENT: +S1, +S2 GI/Abdominal exam: PRESENT: soft Extremities exam: PRESENT: pedal edema Results Laboratory Results: 12/09/17 04:09 12/09/17 04:09 12/09/17 12/09/17 04:09 04:09 WBC 9.2 RBC 4.08 L Hgb 10.6 L Hct 32.3 L MCV 79 L MCH 26.0 L MCHC 32.9 RDW 16.9 H Plt Count 273 Seg Neutrophils % Not Reportable Lymphocytes % Not Reportable Monocytes % Not Reportable Eosinophils % Not Reportable Basophils % Not Reportable Absolute Neutrophils Not Reportable Absolute Lymphocytes Not Reportable Absolute Monocytes Not Reportable Absolute Eosinophils Not Reportable Absolute Basophils Not Reportable Sodium 144.3 Potassium 4.4 Chloride 111 H Carbon Dioxide 18 L Anion Gap 15 BUN 33 H Creatinine 1.50 H Est GFR ( Amer) 59 L Est GFR (Non-Af Amer) 49 L Glucose 93 Calcium 8.3 L Total Bilirubin 2.5 H AST 23 ALT 26 Alkaline Phosphatase 64 Total Protein 6.6 Albumin 2.7 L 12/07/17 12/07/17 12/08/17 14:03 19:57 01:57 Troponin I 0.041 0.044 0.046 Impressions: Chest X-Ray 12/07/17 06:36 IMPRESSION: 1. Cardiomegaly with pulmonary vascular congestion. 2. Right basilar opacity likely represents pleural effusion with superimposed atelectasis or consolidation. Continued radiographic follow-up recommended. Assessment & Plan - Diagnosis (1) Cellulitis of left leg Is this a current diagnosis for this admission?: Yes (2) Metabolic acidosis with respiratory alkalosis Is this a current diagnosis for this admission?: Yes (3) Acute on chronic diastolic heart failure Is this a current diagnosis for this admission?: Yes (4) Hypotension Qualifiers: Hypotension type: unspecified hypotension type Qualified Code(s): I95.9 - Hypotension, unspecified Is this a current diagnosis for this admission?: Yes (5) Anasarca Is this a current diagnosis for this admission?: Yes (6) Chronic atrial fibrillation Is this a current diagnosis for this admission?: Yes (7) Acute kidney injury Is this a current diagnosis for this admission?: Yes Plan: Patient responded to IV fluids suggesting prerenal acute kidney injury (8) Ulcer of right lower leg Qualifiers: Non-pressure ulcer stage: with fat layer exposed Qualified Code(s): L97.912 - Non-pressure chronic ulcer of unspecified part of right lower leg with fat layer exposed Is this a current diagnosis for this admission?: Yes (9) Chronic venous hypertension (idiopathic) with inflammation of bilateral lower extremity Is this a current diagnosis for this admission?: Yes
[2017-12-09] MEDS: 1/2 NORMAL SALINE 1,000 ML IV PRN (21:45)
[2017-12-10 05:17] LABS: ABSOLUTE EOSINOPHILS # (AUTO) 0.3 10^3/uL (0.0-0.6); ABSOLUTE LYMPHOCYTES (AUTO) 0.4 10^3/uL (0.5-4.7); ABSOLUTE MONOCYTES (AUTO) 0.5 10^3/uL (0.1-1.4); ABSOLUTE NEUT (AUTO) 6.3 10^3/uL (1.7-8.2); BASOPHILS % (AUTO) 0.4 % (0-2); EOSINOPHILS % (AUTO) 3.9 % (0-6); HEMATOCRIT 31.2 % (37.9-51.0); HEMOGLOBIN 10.3 g/dL (13.5-17.0); MEAN CORPUSCULAR HEMOGLOBIN 26.2 pg (27.0-33.4); MEAN CORPUSCULAR HGB CONC 33.2 g/dL (32.0-36.0); MEAN CORPUSCULAR VOLUME 79 fl (80-97); MONOCYTES % (AUTO) 6.2 % (3-13); PLATELET COUNT 309 10^3/uL (150-450); RED BLOOD COUNT 3.95 10^6/uL (4.35-5.55); SEGMENTED NEUTROPHILS % (AUTO) 83.5 % (42-78); TOTAL CELLS COUNTED % (AUTO) 100 %; WHITE BLOOD COUNT 7.5 10^3/uL (4.0-10.5)
[2017-12-10 05:36] LABS: ALANINE AMINOTRANSFERASE 26 U/L (21-72); ALBUMIN 2.7 g/dL (3.5-5.0); ALKALINE PHOSPHATASE 65 U/L (38-126); ANION GAP 10 (5-19); ASPARTATE AMINO TRANSFERASE 17 U/L (17-59); BILIRUBIN,DIRECT 1.8 mg/dL (0.0-0.4); BILIRUBIN,TOTAL 2.2 mg/dL (0.2-1.3); BLOOD UREA NITROGEN 28 mg/dL (7-20); CALCIUM 8.4 mg/dL (8.4-10.2); CARBON DIOXIDE 21 mmol/L (22-30); CHLORIDE 112 mmol/L (98-107); GLUCOSE 92 mg/dL (75-110); POTASSIUM 4.6 mmol/L (3.6-5.0); SODIUM 142.7 mmol/L (137-145); TOTAL PROTEIN 6.6 g/dL (6.3-8.2)
[2017-12-10] MEDS: LANSOPRAZOLE 30 MG TAB.RAP.DR PO SCH (06:44)
[2017-12-10] MEDS: CLINDAMYCIN 600 MG/D5W RTU 600 MG/50 ML RTUPB IV SCH (06:45)
[2017-12-10] MEDS: APIXABAN 2.5 MG TABLET PO SCH ×2 (09:03→21:51)
[2017-12-10] MEDS: CLINDAMYCIN HCL 150 MG CAPSULE PO SCH ×2 (14:07→21:51)
[2017-12-10] MEDS: LISINOPRIL 10 MG TABLET PO SCH (14:08)
--- NOTE | 2017-12-10 20:18 | PDOC PROGRESS REPORT ---
Subjective Progress Note for:: 12/10/17 Subjective:: Patient is seen by the bedside, the kidney function is improved with slow hydration Reason For Visit: ACUTE METABOLIC ACIDOSIS,CELLULITIS,ACUTE Physical Exam Vital Signs: Temp Pulse Resp BP Pulse Ox 98.7 F 136 H 22 H 112/83 92 12/10/17 12:06 12/10/17 14:00 12/10/17 12:06 12/10/17 12:06 12/10/17 12:06 Intake & Output 12/09/17 12/10/17 12/11/17 06:59 06:59 06:59 Intake Total 1454 1600 627 Balance 1454 1600 627 Weight 154.2 kg 162.522 kg General appearance: PRESENT: no acute distress Eye exam: PRESENT: PERRLA Respiratory exam: PRESENT: clear to auscultation dell Cardiovascular exam: PRESENT: +S1, +S2 GI/Abdominal exam: PRESENT: soft Neurological exam: PRESENT: alert Results Laboratory Results: 12/10/17 04:27 12/10/17 04:27 12/10/17 12/10/17 04:27 04:27 WBC 7.5 RBC 3.95 L Hgb 10.3 L Hct 31.2 L MCV 79 L MCH 26.2 L MCHC 33.2 RDW 17.0 H Plt Count 309 Seg Neutrophils % 83.5 H Lymphocytes % 6.0 L Monocytes % 6.2 Eosinophils % 3.9 Basophils % 0.4 Absolute Neutrophils 6.3 Absolute Lymphocytes 0.4 L Absolute Monocytes 0.5 Absolute Eosinophils 0.3 Absolute Basophils 0.0 Sodium 142.7 Potassium 4.6 Chloride 112 H Carbon Dioxide 21 L Anion Gap 10 BUN 28 H Creatinine 1.25 Est GFR ( Amer) > 60 Est GFR (Non-Af Amer) > 60 Glucose 92 Calcium 8.4 Total Bilirubin 2.2 H AST 17 ALT 26 Alkaline Phosphatase 65 Total Protein 6.6 Albumin 2.7 L 12/07/17 12/07/17 12/08/17 14:03 19:57 01:57 Troponin I 0.041 0.044 0.046 Impressions: Chest X-Ray 12/07/17 06:36 IMPRESSION: 1. Cardiomegaly with pulmonary vascular congestion. 2. Right basilar opacity likely represents pleural effusion with superimposed atelectasis or consolidation. Continued radiographic follow-up recommended. Assessment & Plan - Diagnosis (1) Cellulitis of left leg Is this a current diagnosis for this admission?: Yes (2) Metabolic acidosis with respiratory alkalosis Is this a current diagnosis for this admission?: Yes (3) Acute on chronic diastolic heart failure Is this a current diagnosis for this admission?: Yes (4) Hypotension Qualifiers: Hypotension type: unspecified hypotension type Qualified Code(s): I95.9 - Hypotension, unspecified Is this a current diagnosis for this admission?: Yes (5) Anasarca Is this a current diagnosis for this admission?: Yes (6) Chronic atrial fibrillation Is this a current diagnosis for this admission?: Yes (7) Acute kidney injury Is this a current diagnosis for this admission?: Yes (8) Ulcer of right lower leg Qualifiers: Non-pressure ulcer stage: with fat layer exposed Qualified Code(s): L97.912 - Non-pressure chronic ulcer of unspecified part of right lower leg with fat layer exposed Is this a current diagnosis for this admission?: Yes (9) Chronic venous hypertension (idiopathic) with inflammation of bilateral lower extremity Is this a current diagnosis for this admission?: Yes
[2017-12-11] MEDS: CLINDAMYCIN HCL 150 MG CAPSULE PO SCH ×3 (05:56→21:35)
[2017-12-11] MEDS: LANSOPRAZOLE 30 MG TAB.RAP.DR PO SCH (05:56)
--- NOTE | 2017-12-11 09:51 | PDOC PROGRESS REPORT ---
Subjective Progress Note for:: 12/11/17 Subjective:: Patient is currently doing fair Since denied any chest pain denied any shortness of the breath Patient was admitted because of the hypotension dehydration's patient with ongoing chronic morbid obesity and chronic diastolic heart failure chronic respiratory failure Patient's currently feeling much better except complaining of pain in the leg patient is currently on a clindamycin as per the cellulitis no fever no chills Reason For Visit: ACUTE METABOLIC ACIDOSIS,CELLULITIS,ACUTE Physical Exam Vital Signs: Temp Pulse Resp BP Pulse Ox 98.7 F 108 H 20 114/66 96 12/11/17 03:33 12/11/17 07:00 12/11/17 03:33 12/11/17 03:33 12/11/17 03:33 Intake & Output 12/10/17 12/11/17 12/12/17 06:59 06:59 06:59 Intake Total 1600 867 Balance 1600 867 Weight 162.522 kg 167.7 kg General appearance: PRESENT: no acute distress, morbidly obese, well-developed, well-nourished Head exam: PRESENT: atraumatic, normocephalic Eye exam: PRESENT: conjunctiva pink, EOMI, PERRLA. ABSENT: scleral icterus Ear exam: PRESENT: normal external ear exam Mouth exam: PRESENT: moist, tongue midline Neck exam: PRESENT: full ROM. ABSENT: carotid bruit, JVD, lymphadenopathy, thyromegaly Respiratory exam: PRESENT: clear to auscultation dell Cardiovascular exam: PRESENT: RRR. ABSENT: diastolic murmur, rubs, systolic murmur Pulses: PRESENT: normal dorsalis pedis pul, +2 pedal pulses bilateral Vascular exam: PRESENT: normal capillary refill GI/Abdominal exam: PRESENT: normal bowel sounds, soft. ABSENT: distended, guarding, mass, organolmegaly, rebound, tenderness Rectal exam: PRESENT: deferred Extremities exam: PRESENT: pedal edema Additional comments: Left lower extremity chronic edema with small blisters on the left lower extremity Neurological exam: PRESENT: alert, awake, oriented to person, oriented to place , oriented to time, oriented to situation, CN II-XII grossly intact. ABSENT: motor sensory deficit Psychiatric exam: PRESENT: appropriate affect, normal mood. ABSENT: homicidal ideation, suicidal ideation Skin exam: PRESENT: dry, intact, warm. ABSENT: cyanosis, rash Results Laboratory Results: 12/10/17 04:27 12/10/17 04:27 12/07/17 12/07/17 12/08/17 14:03 19:57 01:57 Troponin I 0.041 0.044 0.046 Impressions: Chest X-Ray 12/07/17 06:36 IMPRESSION: 1. Cardiomegaly with pulmonary vascular congestion. 2. Right basilar opacity likely represents pleural effusion with superimposed atelectasis or consolidation. Continued radiographic follow-up recommended. Assessment & Plan - Diagnosis (1) Acute on chronic diastolic heart failure Is this a current diagnosis for this admission?: Yes (2) Cellulitis of left leg Is this a current diagnosis for this admission?: Yes (3) Chronic atrial fibrillation Is this a current diagnosis for this admission?: Yes (4) Chronic cutaneous venous stasis ulcer Is this a current diagnosis for this admission?: Yes (5) Metabolic acidosis Is this a current diagnosis for this admission?: Yes (6) Acute and chronic respiratory failure with hypercapnia Is this a current diagnosis for this admission?: Yes (7) Cardiomyopathy Qualifiers: Cardiomyopathy type: unspecified Qualified Code(s): I42.9 - Cardiomyopathy , unspecified Is this a current diagnosis for this admission?: Yes (8) Edema of both legs Is this a current diagnosis for this admission?: Yes - Time Time Spent with patient: 15-24 minutes Medications reviewed and adjusted accordingly: Yes Anticipated discharge: Other Within: Other - Inpatient Certification Medical Necessity: Need Close Monitoring Due to Risk of Patient Decompensation, Need for IV Antibiotics Post Hospital Care: D/C Paid Search Analyst Documentation - Plan Summary Plan Summary: Continues to IV clindamycin Check the patient's CBC and Chem-7 in the morning Consider the torsemide 10 mg lower dose due to the ongoing chronic cardiomyopathy congestive heart failure
[2017-12-11] MEDS: APIXABAN 2.5 MG TABLET PO SCH ×2 (10:39→21:35)
[2017-12-11] MEDS: FLUTICASONE NASAL SPRAY 50 MCG/SPRY 120 SPRAY/16 GM NASL SCH (10:39)
[2017-12-11] MEDS: LISINOPRIL 10 MG TABLET PO SCH (17:00)
[2017-12-12 05:09] LABS: ABSOLUTE EOSINOPHILS # (AUTO) 0.2 10^3/uL (0.0-0.6); ABSOLUTE LYMPHOCYTES (AUTO) 0.5 10^3/uL (0.5-4.7); ABSOLUTE MONOCYTES (AUTO) 0.6 10^3/uL (0.1-1.4); ABSOLUTE NEUT (AUTO) 6.9 10^3/uL (1.7-8.2); BASOPHILS % (AUTO) 0.6 % (0-2); EOSINOPHILS % (AUTO) 2.7 % (0-6); HEMATOCRIT 30.8 % (37.9-51.0); HEMOGLOBIN 10.1 g/dL (13.5-17.0); LYMPHOCYTES % (AUTO) 6.3 % (13-45); MEAN CORPUSCULAR HEMOGLOBIN 26.2 pg (27.0-33.4); MEAN CORPUSCULAR HGB CONC 32.8 g/dL (32.0-36.0); MEAN CORPUSCULAR VOLUME 80 fl (80-97); MONOCYTES % (AUTO) 7.5 % (3-13); PLATELET COUNT 349 10^3/uL (150-450); RED BLOOD COUNT 3.85 10^6/uL (4.35-5.55); RED CELL DISTRIBUTION WIDTH 17.3 % (11.5-14.0); SEGMENTED NEUTROPHILS % (AUTO) 82.9 % (42-78); TOTAL CELLS COUNTED % (AUTO) 100 %; WHITE BLOOD COUNT 8.3 10^3/uL (4.0-10.5)
[2017-12-12 05:22] LABS: ANION GAP 8 (5-19); BLOOD UREA NITROGEN 27 mg/dL (7-20); CALCIUM 8.7 mg/dL (8.4-10.2); CARBON DIOXIDE 22 mmol/L (22-30); CHLORIDE 113 mmol/L (98-107); GLUCOSE 119 mg/dL (75-110); POTASSIUM 4.9 mmol/L (3.6-5.0)
[2017-12-12] MEDS: CLINDAMYCIN HCL 150 MG CAPSULE PO SCH ×3 (05:49→21:31)
[2017-12-12] MEDS: LANSOPRAZOLE 30 MG TAB.RAP.DR PO SCH ×2 (05:49→17:04)
[2017-12-12] MEDS: APIXABAN 2.5 MG TABLET PO SCH ×2 (10:17→21:31)
[2017-12-12] MEDS: FLUTICASONE NASAL SPRAY 50 MCG/SPRY 120 SPRAY/16 GM NASL SCH (10:18)
--- NOTE | 2017-12-12 10:54 | PDOC PROGRESS REPORT ---
Subjective Progress Note for:: 12/12/17 Subjective:: Patient is currently doing fair Since denied any chest pain denied any shortness of the breath Patient was admitted because of the hypotension dehydration's patient with ongoing chronic morbid obesity and chronic diastolic heart failure chronic respiratory failure Patient's currently feeling much better except complaining of pain in the leg patient is currently on a clindamycin as per the cellulitis no fever no chills Reason For Visit: ACUTE METABOLIC ACIDOSIS,CELLULITIS,ACUTE Physical Exam Vital Signs: Temp Pulse Resp BP Pulse Ox 98.6 F 101 H 28 H 101/57 L 95 12/12/17 03:48 12/12/17 07:00 12/12/17 03:48 12/12/17 03:48 12/12/17 03:48 Intake & Output 12/11/17 12/12/17 12/13/17 06:59 06:59 06:59 Intake Total 867 1935 Balance 867 1935 Weight 167.7 kg 153.2 kg General appearance: PRESENT: no acute distress, well-developed, well-nourished Head exam: PRESENT: atraumatic, normocephalic Eye exam: PRESENT: conjunctiva pink, EOMI, PERRLA. ABSENT: scleral icterus Ear exam: PRESENT: normal external ear exam Mouth exam: PRESENT: moist, tongue midline Neck exam: PRESENT: full ROM. ABSENT: carotid bruit, JVD, lymphadenopathy, thyromegaly Respiratory exam: PRESENT: clear to auscultation dell Cardiovascular exam: PRESENT: RRR. ABSENT: diastolic murmur, rubs, systolic murmur Pulses: PRESENT: normal dorsalis pedis pul, +2 pedal pulses bilateral Vascular exam: PRESENT: normal capillary refill GI/Abdominal exam: PRESENT: normal bowel sounds, soft. ABSENT: distended, guarding, mass, organolmegaly, rebound, tenderness Rectal exam: PRESENT: deferred Extremities exam: PRESENT: pedal edema Neurological exam: PRESENT: alert, awake, oriented to person, oriented to place , oriented to time, oriented to situation, CN II-XII grossly intact. ABSENT: motor sensory deficit Psychiatric exam: PRESENT: appropriate affect, normal mood. ABSENT: homicidal ideation, suicidal ideation Skin exam: PRESENT: dry, intact, warm. ABSENT: cyanosis, rash Results Laboratory Results: 12/12/17 04:19 12/12/17 04:19 12/12/17 12/12/17 04:19 04:19 WBC 8.3 RBC 3.85 L Hgb 10.1 L Hct 30.8 L MCV 80 MCH 26.2 L MCHC 32.8 RDW 17.3 H Plt Count 349 Seg Neutrophils % 82.9 H Lymphocytes % 6.3 L Monocytes % 7.5 Eosinophils % 2.7 Basophils % 0.6 Absolute Neutrophils 6.9 Absolute Lymphocytes 0.5 Absolute Monocytes 0.6 Absolute Eosinophils 0.2 Absolute Basophils 0.0 Sodium 143.0 Potassium 4.9 Chloride 113 H Carbon Dioxide 22 Anion Gap 8 BUN 27 H Creatinine 1.27 H Est GFR ( Amer) > 60 Est GFR (Non-Af Amer) 59 L Glucose 119 H Calcium 8.7 12/07/17 12/07/17 12/08/17 14:03 19:57 01:57 Troponin I 0.041 0.044 0.046 Impressions: Chest X-Ray 12/07/17 06:36 IMPRESSION: 1. Cardiomegaly with pulmonary vascular congestion. 2. Right basilar opacity likely represents pleural effusion with superimposed atelectasis or consolidation. Continued radiographic follow-up recommended. Assessment & Plan - Diagnosis (1) Acute on chronic diastolic heart failure Is this a current diagnosis for this admission?: Yes (2) Cellulitis of left leg Is this a current diagnosis for this admission?: Yes (3) Chronic atrial fibrillation Is this a current diagnosis for this admission?: Yes (4) Chronic cutaneous venous stasis ulcer Is this a current diagnosis for this admission?: Yes (5) Metabolic acidosis Is this a current diagnosis for this admission?: Yes (6) Acute and chronic respiratory failure with hypercapnia Is this a current diagnosis for this admission?: Yes (7) Cardiomyopathy Qualifiers: Cardiomyopathy type: unspecified Qualified Code(s): I42.9 - Cardiomyopathy , unspecified Is this a current diagnosis for this admission?: Yes (8) Edema of both legs Is this a current diagnosis for this admission?: Yes - Time Time Spent with patient: 15-24 minutes Medications reviewed and adjusted accordingly: Yes Anticipated discharge: Other - Inpatient Certification Medical Necessity: Need Close Monitoring Due to Risk of Patient Decompensation Post Hospital Care: D/C Quality Assurance Advisor Documentation - Plan Summary Plan Summary: Will increase the PPI twice a day
[2017-12-12] MEDS ORDERED: TORSEMIDE 20 MG TABLET PO ONE (11:33)
[2017-12-12] MEDS: LISINOPRIL 10 MG TABLET PO SCH (14:11)
[2017-12-13] MEDS: LANSOPRAZOLE 30 MG TAB.RAP.DR PO SCH ×2 (05:24→18:32)
[2017-12-13] MEDS: CLINDAMYCIN HCL 150 MG CAPSULE PO SCH ×3 (05:24→21:37)
[2017-12-13 05:51] LABS: HEMATOCRIT 30.7 % (37.9-51.0); HEMOGLOBIN 9.9 g/dL (13.5-17.0); MEAN CORPUSCULAR HEMOGLOBIN 25.8 pg (27.0-33.4); MEAN CORPUSCULAR HGB CONC 32.2 g/dL (32.0-36.0); MEAN CORPUSCULAR VOLUME 80 fl (80-97); PLATELET COUNT 342 10^3/uL (150-450); RED BLOOD COUNT 3.83 10^6/uL (4.35-5.55); RED CELL DISTRIBUTION WIDTH 17.2 % (11.5-14.0); WHITE BLOOD COUNT 6.9 10^3/uL (4.0-10.5)
[2017-12-13 06:10] LABS: ANION GAP 8 (5-19); BLOOD UREA NITROGEN 27 mg/dL (7-20); CALCIUM 8.5 mg/dL (8.4-10.2); CARBON DIOXIDE 22 mmol/L (22-30); CHLORIDE 113 mmol/L (98-107); GLUCOSE 103 mg/dL (75-110); SODIUM 142.7 mmol/L (137-145)
[2017-12-13 06:11] LABS: ABSOLUTE LYMPHOCYTES# (MANUAL) 0.6 10^3/uL (0.5-4.7); ABSOLUTE MONOCYTES # (MANUAL) 0.2 10^3/uL (0.1-1.4); BASOPHILS % (MANUAL) 0 % (0-2); EOSINOPHILS % (MANUAL) 1 % (0-6); LYMPHOCYTES % (MANUAL) 9 % (13-45); MONOCYTES % (MANUAL) 3 % (3-13); SEGMENTED NEUTROPHILS % (MAN) 87 % (42-78); TOTAL CELLS COUNTED 100
[2017-12-13 06:12] LABS: ANISOCYTOSIS 1+
[2017-12-13 06:13] LABS: OVALOCYTES SLIGHT; PLATELET COMMENT ADEQUATE; POIKILOCYTOSIS SLIGHT
[2017-12-13] MEDS: FLUTICASONE NASAL SPRAY 50 MCG/SPRY 120 SPRAY/16 GM NASL SCH (10:30)
[2017-12-13] MEDS: APIXABAN 2.5 MG TABLET PO SCH ×2 (10:30→21:37)
[2017-12-13] MEDS: TORSEMIDE 20 MG TABLET PO SCH (10:31)
[2017-12-13] MEDS: LISINOPRIL 10 MG TABLET PO SCH (14:18)
--- NOTE | 2017-12-13 21:52 | PDOC PROGRESS REPORT ---
Subjective Progress Note for:: 12/13/17 Subjective:: Patient seen by the bedside, the Unna boot is restarted back patient condition is chronic ,he would like to be discharged home not to a detention home when he is ready for discharge Reason For Visit: ACUTE METABOLIC ACIDOSIS,CELLULITIS,ACUTE Physical Exam Vital Signs: Temp Pulse Resp BP Pulse Ox 98.8 F 97 20 98/76 L 98 12/13/17 19:39 12/13/17 19:39 12/13/17 19:39 12/13/17 19:39 12/13/17 19:39 Intake & Output 12/12/17 12/13/17 12/14/17 06:59 06:59 06:59 Intake Total 1935 2900 1582 Balance 193 2900 1582 Weight 153.2 kg 164.3 kg General appearance: PRESENT: mild distress, morbidly obese Eye exam: PRESENT: PERRLA Respiratory exam: PRESENT: clear to auscultation dell Cardiovascular exam: PRESENT: +S1, +S2 GI/Abdominal exam: PRESENT: soft Neurological exam: PRESENT: alert Results Laboratory Results: 12/13/17 05:11 12/13/17 05:11 12/13/17 12/13/17 05:11 05:11 WBC 6.9 RBC 3.83 L Hgb 9.9 L Hct 30.7 L MCV 80 MCH 25.8 L MCHC 32.2 RDW 17.2 H Plt Count 342 Seg Neutrophils % Not Reportable Lymphocytes % Not Reportable Monocytes % Not Reportable Eosinophils % Not Reportable Basophils % Not Reportable Absolute Neutrophils Not Reportable Absolute Lymphocytes Not Reportable Absolute Monocytes Not Reportable Absolute Eosinophils Not Reportable Absolute Basophils Not Reportable Sodium 142.7 Potassium 5.0 Chloride 113 H Carbon Dioxide 22 Anion Gap 8 BUN 27 H Creatinine 1.30 H Est GFR ( Amer) > 60 Est GFR (Non-Af Amer) 57 L Glucose 103 Calcium 8.5 12/07/17 12/07/17 12/08/17 14:03 19:57 01:57 Troponin I 0.041 0.044 0.046 Impressions: Chest X-Ray 12/07/17 06:36 IMPRESSION: 1. Cardiomegaly with pulmonary vascular congestion. 2. Right basilar opacity likely represents pleural effusion with superimposed atelectasis or consolidation. Continued radiographic follow-up recommended. Assessment & Plan - Diagnosis (1) Cellulitis of left leg Is this a current diagnosis for this admission?: Yes (2) Metabolic acidosis with respiratory alkalosis Is this a current diagnosis for this admission?: Yes (3) Acute on chronic diastolic heart failure Is this a current diagnosis for this admission?: Yes (4) Hypotension Qualifiers: Hypotension type: unspecified hypotension type Qualified Code(s): I95.9 - Hypotension, unspecified Is this a current diagnosis for this admission?: Yes (5) Anasarca Is this a current diagnosis for this admission?: Yes (6) Chronic atrial fibrillation Is this a current diagnosis for this admission?: Yes (7) Acute kidney injury Is this a current diagnosis for this admission?: Yes (8) Ulcer of right lower leg Qualifiers: Non-pressure ulcer stage: with fat layer exposed Qualified Code(s): L97.912 - Non-pressure chronic ulcer of unspecified part of right lower leg with fat layer exposed Is this a current diagnosis for this admission?: Yes (9) Chronic venous hypertension (idiopathic) with inflammation of bilateral lower extremity Is this a current diagnosis for this admission?: Yes
[2017-12-14] MEDS: CLINDAMYCIN HCL 150 MG CAPSULE PO SCH ×2 (05:38→22:44)
[2017-12-14] MEDS: LANSOPRAZOLE 30 MG TAB.RAP.DR PO SCH ×2 (05:38→16:50)
[2017-12-14 05:52] LABS: ANION GAP 10 (5-19); BLOOD UREA NITROGEN 28 mg/dL (7-20); CALCIUM 8.7 mg/dL (8.4-10.2); CARBON DIOXIDE 22 mmol/L (22-30); CHLORIDE 113 mmol/L (98-107); GLUCOSE 102 mg/dL (75-110); POTASSIUM 5.3 mmol/L (3.6-5.0); SODIUM 144.5 mmol/L (137-145)
[2017-12-14] MEDS: APIXABAN 2.5 MG TABLET PO SCH ×2 (09:31→22:44)
[2017-12-14] MEDS: TORSEMIDE 20 MG TABLET PO SCH (09:32)
[2017-12-14] MEDS: POTASSIUM CHLORIDE 10 MEQ TABLET.SA PO SCH (09:32)
[2017-12-14] MEDS: FLUTICASONE NASAL SPRAY 50 MCG/SPRY 120 SPRAY/16 GM NASL SCH (09:35)
[2017-12-14] MEDS: SODIUM CHLORIDE NASAL SPRAY 44 ML NASL SCH (09:36)
[2017-12-14] MEDS: LISINOPRIL 10 MG TABLET PO SCH (13:10)
--- NOTE | 2017-12-14 21:14 | PDOC PROGRESS REPORT ---
Subjective Progress Note for:: 12/14/17 Subjective:: Patient seen by the bedside, he has no new complaints today Reason For Visit: ACUTE METABOLIC ACIDOSIS,CELLULITIS,ACUTE Physical Exam Vital Signs: Temp Pulse Resp BP Pulse Ox 98.9 F 87 32 H 99/61 L 97 12/14/17 19:49 12/14/17 19:49 12/14/17 19:49 12/14/17 19:49 12/14/17 19:49 Intake & Output 12/13/17 12/14/17 12/15/17 06:59 06:59 06:59 Intake Total 2900 2082 450 Balance 2900 2082 450 Weight 164.3 kg 162.9 kg General appearance: PRESENT: mild distress, morbidly obese Eye exam: PRESENT: PERRLA Respiratory exam: PRESENT: rhonchi Cardiovascular exam: PRESENT: +S1, +S2 Neurological exam: PRESENT: alert Results Laboratory Results: 12/13/17 05:11 12/14/17 04:41 12/14/17 04:41 Sodium 144.5 Potassium 5.3 H Chloride 113 H Carbon Dioxide 22 Anion Gap 10 BUN 28 H Creatinine 1.34 H Est GFR ( Amer) > 60 Est GFR (Non-Af Amer) 55 L Glucose 102 Calcium 8.7 12/07/17 12/07/17 12/08/17 14:03 19:57 01:57 Troponin I 0.041 0.044 0.046 Impressions: Chest X-Ray 12/07/17 06:36 IMPRESSION: 1. Cardiomegaly with pulmonary vascular congestion. 2. Right basilar opacity likely represents pleural effusion with superimposed atelectasis or consolidation. Continued radiographic follow-up recommended. Assessment & Plan - Diagnosis (1) Cellulitis of left leg Is this a current diagnosis for this admission?: Yes (2) Metabolic acidosis with respiratory alkalosis Is this a current diagnosis for this admission?: Yes (3) Acute on chronic diastolic heart failure Is this a current diagnosis for this admission?: Yes (4) Hypotension Qualifiers: Hypotension type: unspecified hypotension type Qualified Code(s): I95.9 - Hypotension, unspecified Is this a current diagnosis for this admission?: Yes (5) Anasarca Is this a current diagnosis for this admission?: Yes (6) Chronic atrial fibrillation Is this a current diagnosis for this admission?: Yes (7) Acute kidney injury Is this a current diagnosis for this admission?: Yes (8) Ulcer of right lower leg Qualifiers: Non-pressure ulcer stage: with fat layer exposed Qualified Code(s): L97.912 - Non-pressure chronic ulcer of unspecified part of right lower leg with fat layer exposed Is this a current diagnosis for this admission?: Yes (9) Chronic venous hypertension (idiopathic) with inflammation of bilateral lower extremity Is this a current diagnosis for this admission?: Yes
[2017-12-15] MEDS: CLINDAMYCIN HCL 150 MG CAPSULE PO SCH ×2 (06:22→15:50)
[2017-12-15] MEDS: LANSOPRAZOLE 30 MG TAB.RAP.DR PO SCH ×2 (06:22→17:45)
[2017-12-15] MEDS: POTASSIUM CHLORIDE 10 MEQ TABLET.SA PO SCH (10:21)
[2017-12-15] MEDS: TORSEMIDE 20 MG TABLET PO SCH (10:25)
[2017-12-15] MEDS: APIXABAN 2.5 MG TABLET PO SCH (10:25)
[2017-12-15] MEDS: FLUTICASONE NASAL SPRAY 50 MCG/SPRY 120 SPRAY/16 GM NASL SCH (10:26)
[2017-12-15] MEDS: SODIUM CHLORIDE NASAL SPRAY 44 ML NASL SCH (10:29)
[2017-12-15 12:48] VITALS: BP 103/59
--- NOTE | 2017-12-15 15:28 | PDOC DISCHARGE SUMMARY ---
General - Admit/Disc Date/PCP Admission Date/Primary Care Provider: 12/07/17 08:54 ZOYA LEONE MD Discharge Date: 12/15/17 - Discharge Diagnosis (1) Cellulitis of left leg Is this a current diagnosis for this admission?: Yes (2) Metabolic acidosis with respiratory alkalosis Is this a current diagnosis for this admission?: Yes (3) Acute on chronic diastolic heart failure Is this a current diagnosis for this admission?: Yes (4) Hypotension Is this a current diagnosis for this admission?: Yes (5) Anasarca Is this a current diagnosis for this admission?: Yes (6) Chronic atrial fibrillation Is this a current diagnosis for this admission?: Yes (7) Acute kidney injury Is this a current diagnosis for this admission?: Yes (8) Ulcer of right lower leg Is this a current diagnosis for this admission?: Yes (9) Chronic venous hypertension (idiopathic) with inflammation of bilateral lower extremity Is this a current diagnosis for this admission?: Yes - Additional Information Resuscitation Status: Full Code Discharge Diet: Cardiac Discharge Activity: Activity As Tolerated, Balance Activity w/Rest, Weigh Daily Prescriptions: Fluticasone Propionate [Flonase Nasal [place] 50 Mcg/[place] 16 gm] 1 spray NASL DAILY #1 spray.pump Home Medications: Lisinopril [Prinivil] 20 mg PO DAILY 04/18/17 Apixaban [Eliquis 2.5 mg Tablet] 2.5 mg PO Q12 12/07/17 Torsemide [Demadex 20 mg Tablet] 20 mg PO DAILY 12/07/17 Metoprolol Tartrate [Lopressor 50 mg Tablet] 50 mg PO DAILY 12/08/17 Potassium Chloride [Klor-Con 10] 20 meq PO DAILY 12/08/17 Simvastatin [Zocor 20 mg Tablet] 10 mg PO QHS 12/08/17 Acetaminophen [Tylenol 325 mg Tablet] 650 mg PO Q4HP PRN tablet 12/15/17 Fluticasone Propionate [Flonase Nasal [place] 50 Mcg/[place] 16 gm] 1 spray NASL DAILY #1 spray.pump 12/15/17 History of Present Illness History of Present Illness: ELEONORA SHEFFIELD is a 57 year old male, He has chronic diastolic heart failure, morbid obesity body mass index 48.8,, anasarca secondary to multiple factors including nephrotic syndrome, chronic diastolic heart failure, pulmonary hypertension, sedentary existence, he came to the emergency room for evaluation of leg pain, the left leg is inflamed, tender to touch red consistent with cellulitis, the right leg is wrapped in Unaboot. Patient is well-known to me he has multiple hospitalization from previous encounters, I discussed with him and his family on multiple occasions on CODE STATUS he always intended to be a DNR I again discussed with him on this admission and he again stated that he wants to be a DNR, the nursing staff in the emergency room indicated to me that he spoke to him and he told him he wants to be a full code but I am not getting the same information that he got from him I would maintain his DNR status according to his wishes. The blood gas on FiO2 of 3 L, pH 7.35 PCO2 31.6, bicarbonate 17.2 this is consistent with metabolic acidosis combined with respiratory alkalosis, chest x-ray showed volume overload. Patient is on megadoses of diuretic the blood pressure on the low side. He has history of chronic fibrillation on anticoagulant Hospital Course Hospital Course: Patient was admitted for the management of cellulitis of left leg, acute on chronic diastolic heart failure, acute kidney injury and hypotension. He was treated with IV antibiotic empirically, clindamycin for the cellulitis of the left leg. He had low blood pressure initially on admission there was also associated anasarca he needed diuresis but because of the low blood pressure this was not initiated initially on admission. He was treated with intravenous dopamine to support the blood pressure for the diuretic to be initiated.. Unaboot was applied to both lower extremities. Patient is morbidly obese most of the complication is from morbid obesity., He also required noninvasive ventilation with bilevel positive airway pressure temporarily in the hospital. Physical Exam Vital Signs: Temp Pulse Resp BP Pulse Ox 99.2 F 81 18 103/59 L 98 12/15/17 12:00 12/15/17 12:00 12/15/17 12:00 12/15/17 12:00 12/15/17 12:00 Intake & Output 12/14/17 12/15/17 12/16/17 06:59 06:59 06:59 Intake Total 2081 1200 Balance 2081 1200 Weight 162.9 kg 163.2 kg General appearance: PRESENT: no acute distress Eye exam: PRESENT: PERRLA Respiratory exam: PRESENT: clear to auscultation dell Cardiovascular exam: PRESENT: +S1, +S2 GI/Abdominal exam: PRESENT: soft Extremities exam: PRESENT: other - edema of the lower extremity Neurological exam: PRESENT: alert, CN II-XII grossly intact Results Laboratory Results: 12/13/17 05:11 12/14/17 04:41 12/07/17 12/07/17 12/08/17 14:03 19:57 01:57 Troponin I 0.041 0.044 0.046 Impressions: Chest X-Ray 12/07/17 06:36 IMPRESSION: 1. Cardiomegaly with pulmonary vascular congestion. 2. Right basilar opacity likely represents pleural effusion with superimposed atelectasis or consolidation. Continued radiographic follow-up recommended. Qualifiers - * PATIENT BEING DISCHARGED WITH ANY OF THE FOLLOWING DIAGNOSIS: No
[2017-12-15] MEDS: LISINOPRIL 10 MG TABLET PO SCH (15:51)
[2017-12-15 15:56] LABS: HEMATOCRIT 30.9 % (37.9-51.0); HEMOGLOBIN 10.1 g/dL (13.5-17.0); MEAN CORPUSCULAR HEMOGLOBIN 26.2 pg (27.0-33.4); MEAN CORPUSCULAR HGB CONC 32.6 g/dL (32.0-36.0); MEAN CORPUSCULAR VOLUME 80 fl (80-97); PLATELET COUNT 391 10^3/uL (150-450); RED BLOOD COUNT 3.85 10^6/uL (4.35-5.55); RED CELL DISTRIBUTION WIDTH 17.2 % (11.5-14.0); WHITE BLOOD COUNT 5.2 10^3/uL (4.0-10.5)
[2017-12-15 16:11] LABS: ALANINE AMINOTRANSFERASE 21 U/L (21-72); ALBUMIN 2.8 g/dL (3.5-5.0); ALKALINE PHOSPHATASE 92 U/L (38-126); ANION GAP 8 (5-19); ASPARTATE AMINO TRANSFERASE 21 U/L (17-59); BILIRUBIN,DIRECT 0.9 mg/dL (0.0-0.4); BILIRUBIN,TOTAL 0.9 mg/dL (0.2-1.3); BLOOD UREA NITROGEN 29 mg/dL (7-20); CALCIUM 8.8 mg/dL (8.4-10.2); CARBON DIOXIDE 25 mmol/L (22-30); CHLORIDE 110 mmol/L (98-107); GLUCOSE 103 mg/dL (75-110); POTASSIUM 5.5 mmol/L (3.6-5.0); TOTAL PROTEIN 6.9 g/dL (6.3-8.2)
[2017-12-15 16:35] LABS: ABSOLUTE LYMPHOCYTES# (MANUAL) 0.8 10^3/uL (0.5-4.7); ABSOLUTE MONOCYTES # (MANUAL) 0.4 10^3/uL (0.1-1.4); ABSOLUTE NEUTROPHILS# (MANUAL) 3.8 10^3/uL (1.7-8.2); BASOPHILS % (MANUAL) 2 % (0-2); EOSINOPHILS % (MANUAL) 1 % (0-6); LYMPHOCYTES % (MANUAL) 15 % (13-45); METAMYELOCYTES % (MANUAL) 2 % (0); MONOCYTES % (MANUAL) 8 % (3-13); SEGMENTED NEUTROPHILS % (MAN) 71 % (42-78); TOTAL CELLS COUNTED 100
[2017-12-15 16:36] LABS: ANISOCYTOSIS 1+; HYPOCHROMASIA SLIGHT; OVALOCYTES 1+; PLATELET COMMENT ADEQUATE; POIKILOCYTOSIS 1+; POLYCHROMASIA SLIGHT
== END 2017-12-15 20:06 | disposition home or self-care (01) | DRG 602 ==
LOC: ER 04:54 → EH 08:54 → 3N 15:41
PROVIDERS: ADMIT Internal Medicine; ATTEND Internal Medicine
DX: L03.116 Cellulitis of left lower limb (principal); I50.33 Acute on chronic diastolic (congestive) heart failure; J96.22 Acute and chronic respiratory failure with hypercapnia; E87.2 Acidosis; E87.3 Alkalosis; N17.9 Acute kidney failure, unspecified; Z68.42 Body mass index [BMI] 45.0-49.9, adult; L97.912 Non-pressure chronic ulcer of unspecified part of right lower leg with fat layer exposed; I42.9 Cardiomyopathy, unspecified; I95.9 Hypotension, unspecified; I48.2 Chronic atrial fibrillation; I87.323 Chronic venous hypertension (idiopathic) with inflammation of bilateral lower extremity; E66.01 Morbid (severe) obesity due to excess calories; I27.20 Pulmonary hypertension, unspecified; I25.10 Atherosclerotic heart disease of native coronary artery without angina pectoris; E78.00 Pure hypercholesterolemia, unspecified; I11.0 Hypertensive heart disease with heart failure; I73.9 Peripheral vascular disease, unspecified; G47.30 Sleep apnea, unspecified; M19.90 Unspecified osteoarthritis, unspecified site; E86.0 Dehydration; F32.9 Major depressive disorder, single episode, unspecified; Z74.01 Bed confinement status; Z79.899 Other long term (current) drug therapy; Z87.891 Personal history of nicotine dependence; Z82.49 Family history of ischemic heart disease and other diseases of the circulatory system; Z83.6 Family history of other diseases of the respiratory system; Z82.3 Family history of stroke; Z83.3 Family history of diabetes mellitus
CPT/HCPCS: 36415; 71045; 80048; 80053; 80061; 80076; 80307; 81001; 82150; 82550; 82803; 83036; 83605; 83690; 83880; 84439; 84443; 84484; 85025; 87040; 87077; 87186; 87493; 93005; 93010; 99285; J3490

== ENCOUNTER 2018-01-28 15:20 | Emergency (ER) | payer OTHER, MEDICARE, MEDICAID ==
--- NOTE | 2018-01-28 17:11 | RADIOLOGY REPORT (SQ) ---
EXAM DESCRIPTION: FOOT RIGHT COMPLETE COMPLETED DATE/TIME: 01/28/2018 4:50 pm REASON FOR STUDY: chronic ulcer, infected COMPARISON: Right foot x-ray 04/03/2016, 03/05/2016 NUMBER OF VIEWS: Three views. TECHNIQUE: AP, lateral and oblique radiographic images acquired of the right foot. LIMITATIONS: None. FINDINGS: MINERALIZATION: Osteopenia. BONES: No acute fracture or dislocation. Redemonstration of cortical irregularity at the distal 1st metatarsal. No new area of cortical irregularity or periosteal reaction. SOFT TISSUES: There is diffuse soft tissue swelling. Vascular calcifications are noted. IMPRESSION: Diffuse soft tissue swelling. Osteopenia. Redemonstration of cortical irregularity at the distal 1st metatarsal, may be secondary to osteomyelitis versus degenerative changes. Evaluation with MRI as clinically warranted. TECHNICAL DOCUMENTATION: JOB ID: [id number] 2010 [employer] All Rights Reserved Reading location - IP/workstation name: [email or web address]
--- NOTE | 2018-01-28 17:14 | RADIOLOGY REPORT (SQ) ---
EXAM DESCRIPTION: TIBIA FIBULA RIGHT COMPLETED DATE/TIME: 01/28/2018 4:50 pm REASON FOR STUDY: chronic ulcer, infected COMPARISON: None. NUMBER OF VIEWS: Two views. TECHNIQUE: Two radiographic images acquired of the right tibia and fibula to include the knee and an kle in at least one projection. LIMITATIONS: None. FINDINGS: MINERALIZATION: Osteopenia. BONES: No acute fracture or dislocation. Degenerative changes are seen at the right knee with joint space narrowing and mild osteophytosis. There is periosteal thickening along the tibia and fibula. SOFT TISSUES: There is extensive diffuse soft tissue swelling. Vascular calcifications are noted. IMPRESSION: Osteopenia. No radiographic evidence of acute fracture. Periosteal thickening along th e tibia and fibula, may be secondary to chronic venous stasis. Extensive diffuse soft tissue swellin g. TECHNICAL DOCUMENTATION: JOB ID: [id number] 2010 [employer]- All Rights Reserved Reading location - IP/workstation name: [email or web address]
--- NOTE | 2018-01-28 17:20 | RADIOLOGY REPORT (SQ) ---
EXAM DESCRIPTION: CHEST SINGLE VIEW COMPLETED DATE/TIME: 01/28/2018 4:50 pm REASON FOR STUDY: chronic ulcer, infected COMPARISON: Chest x-ray 12/07/2017. CT chest 07/04/2013. EXAM PARAMETERS: NUMBER OF VIEWS: One view. TECHNIQUE: Single frontal radiographic view of the chest acquired. RADIATION DOSE: NA LIMITATIONS: None. FINDINGS: LUNGS AND PLEURA: Redemonstration of airspace opacity at the right lung base. No sizable pleural effusion or pneumothorax. MEDIASTINUM AND HILAR STRUCTURES: Stable appearance. HEART AND VASCULAR STRUCTURES: The heart is enlarged. There is mild vascular congestion. HARDWARE: None in the chest. IMPRESSION: Cardiomegaly. Mild vascular congestion. Persistent airspace opacity at the right lung base, underlying mass cannot be excluded, CT thorax can help in better evaluation. TECHNICAL DOCUMENTATION: JOB ID: [id number] 2010 [employer] All Rights Reserved Reading location - IP/workstation name: [email or web address]
[2018-01-28] MEDS ORDERED: TORSEMIDE 20 MG TABLET PO ONE (17:28)
--- NOTE | 2018-01-28 17:31 | ER Document Report ---
ED General - General Chief Complaint: Leg Pain Stated Complaint: LEG PAIN Time Seen by Provider: 01/28/18 15:57 Mode of Arrival: Medic Information source: Patient Notes: Pt is a 57 year old male with a history of anarasarca, venous stasis with a chronic venous stasis ulcer, osteomyelitis of the right foot, CHF on torsemide, who presents to the ER today for possible infected right foot wound. Pt has wound care that comes out to his house and change the dressing twice weekly, they came out yesterday and changed the dressing. He states that they said the wound had an odor yesterday. He denies pus coming from the wound that he's seen. He states it has had this odor before, off and on. He also admits to left testicular swelling over the past few days. He denies that it hurts, denies dysuria, fever, chills. TRAVEL OUTSIDE OF THE [place] IN LAST 30 DAYS: No - Related Data Allergies/Adverse Reactions: No Known Allergies Allergy (Verified 12/08/17 11:56) Past Medical History - General Information source: Patient - Social History Smoking Status: Unknown if Ever Smoked Family History: CAD, COPD, CVA, DM, Hypertension - Past Medical History Cardiac Medical History: Reports: Hx Atrial Fibrillation, Hx Congestive Heart Failure, Hx Coronary Artery Disease, Hx Hypercholesterolemia, Hx Hypertension, Hx Peripheral Vascular Disease, Hx Pulmonary Embolism Pulmonary Medical History: Reports: Hx COPD, Hx Sleep Apnea Renal/ Medical History: Reports: Hx Renal Insufficiency. Denies: Hx Peritoneal Dialysis GI Medical History: Reports: Hx Gastritis, Hx Ulcerative Colitis Musculoskeletal Medical History: Reports Hx Arthritis Psychiatric Medical History: Denies: Hx Depression Past Surgical History: Reports: Hx Tonsillectomy, Other - Tooth extraction - Immunizations Hx Diphtheria, Pertussis, Tetanus Vaccination: No Review of Systems - Review of Systems Constitutional: No symptoms reported EENT: No symptoms reported Cardiovascular: No symptoms reported Respiratory: No symptoms reported Gastrointestinal: No symptoms reported Genitourinary: No symptoms reported Male Genitourinary: No symptoms reported Musculoskeletal: No symptoms reported Skin: See HPI Hematologic/Lymphatic: No symptoms reported Neurological/Psychological: No symptoms reported Physical Exam - Vital signs Vitals: Temp Resp 98.3 F 30 H 01/28/18 15:32 01/28/18 15:32 - Notes Notes: PHYSICAL EXAMINATION: GENERAL: morbidly obese, in no acute distress. HEAD: Atraumatic, normocephalic. EYES: Pupils equal round and reactive to light, extraocular movements intact, sclera anicteric, conjunctiva are normal. NECK: Normal range of motion, supple without lymphadenopathy LUNGS: CTAB and equal. No wheezes rales or rhonchi. HEART: Regular rate and rhythm without murmurs ABDOMEN: Soft, no tenderness. No guarding, no rebound BACK: no vertebral tenderness, normal ROM GI/: grapefruit sized scrotum, edema to entire scrotum, no CVA tenderness EXTREMITIES/SKIN: thickened, scaly skin to bilateral lower extremities, 2cm in diameter venous stasis ulcer to right medial foot/ankle, no purulence, no bleeding, chronic in appearance, no erythema, large cracks in thickened skin without bleeding of infection NEUROLOGICAL: Cranial nerves grossly intact. Normal sensory/motor exams. PSYCH: Normal mood, normal affect. Course - Re-evaluation Re-evalutation: 01/28/18 22:27 labwork unremarkable today, all symptoms that brought him here today are chronic in nature, I did speak to Dr. Edwards today who's poultry boner for pt's pcp Dr. Ny and he was advised of all symptoms today including ulcer and testicular swelling and clinical exam, x ray of right leg and foot show possible lucency that he's had before showing possible osteomyelitis that pt is diagnosed with already. Pt is too large for MRI, over 450lbs. chest x ray reveals stable lung opacity that is persistent, probably mass. Pt too large for CT table. Pt advised of this and told to follow up outpatient about this. Pt given tub of silvadene to take home to place on wound, [facility], pt's wound care called, Yaa, poultry boner nurse answered and agrees to see him tomorrow and take a look at wound. Dr. Edwards states he can follow up in office for all of this. pt given torsemide dose today. - Vital Signs Vital signs: Temp Pulse Resp BP Pulse Ox 98.3 F 20 121/98 H 73 L 01/28/18 15:32 01/28/18 20:01 01/28/18 20:01 01/28/18 16:01 - Laboratory Result Diagrams: 01/28/18 17:30 01/28/18 17:30 Laboratory results interpreted by me: 01/28/18 01/28/18 17:30 17:30 RBC 4.19 L Hgb 10.9 L Hct 34.1 L MCH 26.0 L RDW 20.8 H Lymphocytes % 12.9 L Chloride 110 H Carbon Dioxide 21 L BUN 26 H Creatinine 1.35 H Est GFR (Non-Af Amer) 55 L Total Bilirubin 2.0 H Direct Bilirubin 1.0 H AST 14 L ALT 13 L Albumin 3.3 L Discharge - Discharge Clinical Impression: Chronic cutaneous venous stasis ulcer, Edema of both legs, Anasarca Condition: Stable Disposition: HOME, SELF-CARE Additional Instructions: Return immediately for any new or worsening symptoms. Follow up with primary care provider, call tomorrow to make followup appointment. Referrals: ZOYA NY MD [Primary Care Provider] - Follow up as needed
[2018-01-28 18:01] LABS: ABSOLUTE BASOPHILS # (AUTO) 0.1 10^3/uL (0.0-0.2); ABSOLUTE EOSINOPHILS # (AUTO) 0.1 10^3/uL (0.0-0.6); ABSOLUTE LYMPHOCYTES (AUTO) 0.6 10^3/uL (0.5-4.7); ABSOLUTE MONOCYTES (AUTO) 0.6 10^3/uL (0.1-1.4); ABSOLUTE NEUT (AUTO) 3.2 10^3/uL (1.7-8.2); BASOPHILS % (AUTO) 1.1 % (0-2); EOSINOPHILS % (AUTO) 3.1 % (0-6); HEMATOCRIT 34.1 % (37.9-51.0); HEMOGLOBIN 10.9 g/dL (13.5-17.0); LYMPHOCYTES % (AUTO) 12.9 % (13-45); MEAN CORPUSCULAR VOLUME 82 fl (80-97); MONOCYTES % (AUTO) 12.8 % (3-13); PLATELET COUNT 214 10^3/uL (150-450); RED BLOOD COUNT 4.19 10^6/uL (4.35-5.55); RED CELL DISTRIBUTION WIDTH 20.8 % (11.5-14.0); SEGMENTED NEUTROPHILS % (AUTO) 70.1 % (42-78); TOTAL CELLS COUNTED % (AUTO) 100 %; WHITE BLOOD COUNT 4.6 10^3/uL (4.0-10.5)
[2018-01-28 18:19] LABS: ALANINE AMINOTRANSFERASE 13 U/L (21-72); ALBUMIN 3.3 g/dL (3.5-5.0); ALKALINE PHOSPHATASE 65 U/L (38-126); ANION GAP 12 (5-19); ASPARTATE AMINO TRANSFERASE 14 U/L (17-59); BLOOD UREA NITROGEN 26 mg/dL (7-20); CARBON DIOXIDE 21 mmol/L (22-30); CHLORIDE 110 mmol/L (98-107); GLUCOSE 86 mg/dL (75-110); SODIUM 143.4 mmol/L (137-145); TOTAL PROTEIN 7.6 g/dL (6.3-8.2)
--- NOTE | 2018-01-28 18:35 | RADIOLOGY REPORT (SQ) ---
EXAM DESCRIPTION: U/S SCROTUM W/DOPPLER COMPLETED DATE/TIME: 01/28/2018 6:07 pm REASON FOR STUDY: swollen testicle COMPARISON: None. TECHNIQUE: Static and realtime garduno scale imaging of the scrotum and testes. Selected color Doppler and spectral images recorded to document blood flow. LIMITATIONS: None. FINDINGS: RIGHT: TESTICLE: Measures 3.5 x 3.1 x 3.1 cm. Normal echotexture. Normal blood flow. No obvious mass. EPIDIDYMIS: Not visualized. HYDROCELE OR VARICOCELE: Large hydrocele measuring 7 cm. No varicocele was noted. HERNIA OR EXTRA-TESTICULAR MASS: No. OTHER: Diffuse scrotal edema measuring up to 6.3 cm in thickness. LEFT: TESTICLE: Measures 2.9 x 4.9 x 3.6 cm. Normal echotexture. Normal blood flow. No obvious mass. EPIDIDYMIS: Not visualized. HYDROCELE OR VARICOCELE: Moderate hydrocele. No varicocele was noted. HERNIA OR EXTRA-TESTICULAR MASS: No. OTHER: Diffuse scrotal edema. IMPRESSION: 1. No sonographic evidence for testicular torsion. 2. Diffuse scrotal edema. Bilateral hydroceles. 3. Nonvisualized epididymides. TECHNICAL DOCUMENTATION: JOB ID: [id number] 2010 [email or web address]- All Rights Reserved Reading location - IP/workstation name: [email or web address]
[2018-01-28] MEDS ORDERED: SILVER SULFADIAZINE 1% CREAM 400 GM TP ONE (18:50)
[2018-01-28] MEDS ORDERED: HYDROXYZINE PAMOATE 25 MG CAPSULE PO ONE (23:50)
[2018-01-28] MEDS ORDERED: APIXABAN 2.5 MG TABLET PO ONE (23:52)
[2018-01-28] MEDS ORDERED: SIMVASTATIN 10 MG TABLET PO ONE (23:53)
[2018-01-29] MEDS ORDERED: ACETAMINOPHEN 325 MG TABLET PO ONE (08:05)
[2018-01-29] MEDS ORDERED: METOPROLOL TARTRATE 50 MG TABLET PO ONE (08:37)
[2018-01-29] MEDS ORDERED: APIXABAN 2.5 MG TABLET PO ONE (08:37)
[2018-01-29 09:33] VITALS: BP 116/84
== END 2018-01-29 09:46 | disposition home or self-care (01) ==
LOC: ER 15:20
DX: I87.2 Venous insufficiency (chronic) (peripheral) (principal); I11.0 Hypertensive heart disease with heart failure; I50.9 Heart failure, unspecified; R60.1 Generalized edema; M86.9 Osteomyelitis, unspecified; E66.01 Morbid (severe) obesity due to excess calories; I25.10 Atherosclerotic heart disease of native coronary artery without angina pectoris; J44.9 Chronic obstructive pulmonary disease, unspecified; Z79.899 Other long term (current) drug therapy
CPT/HCPCS: 99284; 36415; 85025; 80053; 71045; 73630; 73590; 76870; 93976; J3490

== ENCOUNTER 2018-01-31 16:05 | Inpatient (IN) | payer OTHER, MEDICARE, MEDICAID ==
--- NOTE | 2018-01-31 16:51 | ER Document Report ---
ED GI/ - General Chief Complaint: Testicular Pain Stated Complaint: SWOLLEN TESTICLES Time Seen by Provider: 01/31/18 16:51 Mode of Arrival: Medic Information source: Patient Notes: 57-year-old morbidly obese, CHF, chronic A. fib, chronic ulcer right lower leg, diastolic heart failure, anemia male that lives alone in a trailer by EMS again today because of increased swelling to his testicles. He was seen Wednesday for similar swelling although it is much worse today to the point where he cannot even see his urethra or penis. His ultrasound on Wednesday showed a 7 cm it also showed diffuse scrotal edema. Chest x-ray showed cardiomegaly with mild vascular congestion with a persistent airspace opacity in the right lung that has been there for several years. He states he cannot lay down. He coughed up green yellow sputum while he was in the room and I it for sputum culture. He states Demedex 20mg daily. No fever or chills. PCP: is Dr. Leone- last admission december 2017. TRAVEL OUTSIDE OF THE [place] IN LAST 30 DAYS: No - Related Data Allergies/Adverse Reactions: No Known Allergies Allergy (Verified 01/31/18 16:08) Past Medical History - General Information source: Patient - Social History Smoking Status: Former Smoker - Quit 10 months ago Frequency of alcohol use: None Drug Abuse: None Lives with: Alone Family History: CAD, COPD, CVA, DM, Hypertension - Past Medical History Cardiac Medical History: Reports: Hx Atrial Fibrillation, Hx Congestive Heart Failure, Hx Coronary Artery Disease, Hx Hypercholesterolemia, Hx Hypertension, Hx Peripheral Vascular Disease, Hx Pulmonary Embolism Pulmonary Medical History: Reports: Hx COPD, Hx Sleep Apnea Renal/ Medical History: Reports: Hx Renal Insufficiency. Denies: Hx Peritoneal Dialysis GI Medical History: Reports: Hx Gastritis, Hx Ulcerative Colitis Musculoskeletal Medical History: Reports Hx Arthritis Psychiatric Medical History: Denies: Hx Depression Past Surgical History: Reports: Hx Tonsillectomy, Other - Tooth extraction - Immunizations Hx Diphtheria, Pertussis, Tetanus Vaccination: No Review of Systems - Review of Systems Constitutional: See HPI EENT: No symptoms reported Cardiovascular: No symptoms reported Respiratory: No symptoms reported Gastrointestinal: No symptoms reported Genitourinary: No symptoms reported Male Genitourinary: See HPI Musculoskeletal: No symptoms reported Skin: See HPI Hematologic/Lymphatic: No symptoms reported Neurological/Psychological: No symptoms reported Physical Exam - Vital signs Vitals: Temp Pulse Resp BP Pulse Ox 97.8 F 105 H 16 131/100 H 97 01/31/18 16:36 01/31/18 16:36 01/31/18 16:36 01/31/18 16:36 01/31/18 16:36 Interpretation: Tachycardic. No: Febrile - General General appearance: Alert Notes: Chronically ill morbidly obese - HEENT Head: Normocephalic, Atraumatic Eyes: Normal Conjunctiva: No: Icteric Pupils: PERRL Tympanic membrane: Normal Mouth/Lips: Normal Mucous membranes: Dry Pharynx: Normal Neck: Supple. No: Thyromegally - Respiratory Respiratory status: No respiratory distress Chest status: Nontender Breath sounds: Normal Chest palpation: Normal Notes: Coughed up some yellow-green mucus I sent her for a sputum culture - Cardiovascular Rhythm: Regular Heart sounds: Normal auscultation Murmur: No - Abdominal Inspection: Morbidly Obese, Other - Pitting edema to his lower abdomen. No: Wounds Distension: No distension Bowel sounds: Normal Tenderness: Nontender Organomegaly: No organomegaly - Genitourinary Scrotum: Swelling - Extensive edema to the scrotal tissue and the scrotum is fluid-filled. No: Hot to touch - Back Back: Normal, Nontender - Extremities General upper extremity: Normal inspection, Nontender, Normal color, Normal ROM , Normal temperature General lower extremity: Edema - Pitting edema to his legs he has wound care dressings on both of his lower legs. No: Cecil's sign - Neurological Neuro grossly intact: Yes Cognition: Normal Orientation: AAOx4 Hinckley Coma Scale Eye Opening: Spontaneous Hinckley Coma Scale Verbal: Oriented Luc Coma Scale Motor: Obeys Commands Hinckley Coma Scale Total: 15 Speech: Normal Motor strength normal: LUE, RUE, LLE, RLE Sensory: Normal - Psychological Associated symptoms: Normal affect, Normal mood - Skin Skin Temperature: Warm Skin Moisture: Dry Skin Color: Normal Course - Re-evaluation Re-evalutation: 01/31/18 17:45 Patient urinating fine into a towel he does not want a Morales catheter. I will wait to see what the lab work shows an chest x-ray. 01/31/18 18:48 BNP 11,700, no worsening of the pulmonary congestion. 01/31/18 18:[address] Leone who will admit for diuresis to observation telemetry. - Vital Signs Vital signs: Temp Pulse Resp BP Pulse Ox 97.8 F 105 H 16 123/74 95 01/31/18 16:36 01/31/18 16:36 01/31/18 16:36 01/31/18 17:28 01/31/18 17:31 - Laboratory Result Diagrams: 01/31/18 18:07 01/31/18 18:07 Laboratory results interpreted by me: 01/31/18 01/31/18 01/31/18 18:07 18:07 18:07 RBC 4.17 L Hgb 10.7 L Hct 33.8 L MCH 25.7 L MCHC 31.7 L RDW 20.3 H Lymphocytes % 11.6 L Sodium 146.0 H BUN 26 H Creatinine 1.53 H Est GFR ( Amer) 57 L Est GFR (Non-Af Amer) 47 L Total Bilirubin 2.2 H Direct Bilirubin 0.9 H AST 16 L ALT 17 L NT-Pro-B Natriuret Pep 53424 H Discharge - Discharge Clinical Impression: Chronic atrial fib, Scrotal swelling, Congestive heart failure, Renal insufficiency Condition: Stable Disposition: ADMITTED OBSERVATION Admitting Provider: Yanely Unit Admitted: Telemetry Referrals: ZOYA LEONE MD [Primary Care Provider] - Follow up as needed
--- NOTE | 2018-01-31 17:59 | RADIOLOGY REPORT (SQ) ---
EXAM DESCRIPTION: CHEST SINGLE VIEW COMPLETED DATE/TIME: 01/31/2018 5:42 pm REASON FOR STUDY: swollen testicles COMPARISON: 01/28/2018 EXAM PARAMETERS: NUMBER OF VIEWS: One view. TECHNIQUE: Single frontal radiographic view of the chest acquired. RADIATION DOSE: NA LIMITATIONS: None. FINDINGS: LUNGS AND PLEURA: No acute opacities, masses or pneumothorax. No significant pleural effus ion. MEDIASTINUM AND HILAR STRUCTURES: Stable. HEART AND VASCULAR STRUCTURES: Similar cardiomegaly and mild vascular congestion. BONES: No acute findings. HARDWARE: None in the chest. OTHER: No other significant finding. IMPRESSION: NO ACUTE RADIOGRAPHIC FINDING IN THE CHEST.Similar cardiomegaly and mild vascular conges tion. TECHNICAL DOCUMENTATION: JOB ID: [id number] 2010 [employer]- All Rights Reserved Reading location - IP/workstation name: [email or web address]
[2018-01-31 18:15] LABS: ABSOLUTE BASOPHILS # (AUTO) 0.1 10^3/uL (0.0-0.2); ABSOLUTE EOSINOPHILS # (AUTO) 0.2 10^3/uL (0.0-0.6); ABSOLUTE LYMPHOCYTES (AUTO) 0.6 10^3/uL (0.5-4.7); ABSOLUTE MONOCYTES (AUTO) 0.6 10^3/uL (0.1-1.4); ABSOLUTE NEUT (AUTO) 3.7 10^3/uL (1.7-8.2); BASOPHILS % (AUTO) 1.2 % (0-2); EOSINOPHILS % (AUTO) 3.9 % (0-6); HEMATOCRIT 33.8 % (37.9-51.0); HEMOGLOBIN 10.7 g/dL (13.5-17.0); LYMPHOCYTES % (AUTO) 11.6 % (13-45); MEAN CORPUSCULAR HEMOGLOBIN 25.7 pg (27.0-33.4); MEAN CORPUSCULAR HGB CONC 31.7 g/dL (32.0-36.0); MEAN CORPUSCULAR VOLUME 81 fl (80-97); MONOCYTES % (AUTO) 11.3 % (3-13); PLATELET COUNT 222 10^3/uL (150-450); RED BLOOD COUNT 4.17 10^6/uL (4.35-5.55); RED CELL DISTRIBUTION WIDTH 20.3 % (11.5-14.0); TOTAL CELLS COUNTED % (AUTO) 100 %; WHITE BLOOD COUNT 5.1 10^3/uL (4.0-10.5)
[2018-01-31 18:32] LABS: ALANINE AMINOTRANSFERASE 17 U/L (21-72); ALBUMIN 3.5 g/dL (3.5-5.0); ALKALINE PHOSPHATASE 63 U/L (38-126); ANION GAP 13 (5-19); ASPARTATE AMINO TRANSFERASE 16 U/L (17-59); BILIRUBIN,DIRECT 0.9 mg/dL (0.0-0.4); BILIRUBIN,TOTAL 2.2 mg/dL (0.2-1.3); BLOOD UREA NITROGEN 26 mg/dL (7-20); CARBON DIOXIDE 27 mmol/L (22-30); CHLORIDE 106 mmol/L (98-107); GLUCOSE 90 mg/dL (75-110); TOTAL PROTEIN 7.8 g/dL (6.3-8.2)
[2018-01-31 18:51] LABS: APPEARANCE,URINE CLEAR; BILIRUBIN,URINE NEGATIVE (NEGATIVE); COLOR,URINE STRAW; GLUCOSE, URINE NEGATIVE (NEGATIVE); KETONES,URINE NEGATIVE (NEGATIVE); LEUKOCYTE ESTERASE,URINE NEGATIVE (NEGATIVE); NITRITE,URINE NEGATIVE (NEGATIVE); PROTEIN,URINE NEGATIVE (NEGATIVE); URINE SPECIFIC GRAVITY 1.005; UROBILINOGEN,URINE NEGATIVE mg/dL (<2.0)
[2018-01-31] MEDS ORDERED: FUROSEMIDE 80 MG TABLET PO ONE (18:55)
[2018-01-31] MEDS ORDERED: APIXABAN 2.5 MG TABLET ONE (23:28)
[2018-01-31] MEDS ORDERED: FUROSEMIDE INJ/PF 100 MG/10 ML SDV ONE (23:52)
[2018-02-01] MEDS: SIMVASTATIN 10 MG TABLET PO SCH ×2 (00:29→21:32)
[2018-02-01] MEDS: NORMAL SALINE 250 ML with FUROSEMIDE 250 MG IV PRN ×2 (00:30)
[2018-02-01] MEDS: APIXABAN 2.5 MG TABLET PO SCH ×3 (00:30→21:32)
[2018-02-01] MEDS ORDERED: METOPROLOL TARTRATE 50 MG TABLET PO SCH (10:00)
[2018-02-01] MEDS: TORSEMIDE 20 MG TABLET PO SCH (11:18)
[2018-02-01] MEDS: METOPROLOL TARTRATE 25 MG TABLET PO SCH (11:19)
--- NOTE | 2018-02-01 20:52 | PDOC H&P ---
History of Present Illness Admission Date/PCP: 01/31/18 19:55 ZOYA LEONE MD History of Present Illness: ELEONORA SHEFFIELD is a 57 year old male,Patient is well-known to me he has a history of severe morbid obesity ,chronic diastolic heart failure, nephrotic syndrome, chronic venous hypertension with stasis dermatitis with chronic ulcer of both lower extremities, with multiple hospital admission for the management of anasarca partly due to combination of worsening nephrotic syndrome and acute on chronic diastolic heart failure he came to the emergency room for evaluation of scrotal swelling, he came initially to the emergency room about 3 days ago at the time ultrasound of the testicles was obtained it demonstrated severe hydrocele with scrotal edema, the swelling is so large that his penis is buried in his scrotum and it is not entirely visualized that is also severe the scrotal swelling is.He told me that he has difficulty ambulating Past Medical History Cardiac Medical History: Reports: Atrial Fibrillation, Congestive Heart Failure , Coronary Artery Disease, Hyperlipidema, Hypertension, Peripheral Vascular Disease, Pulmonary Embolism Pulmonary Medical History: Reports: Chronic Obstructive Pulmonary Disease (COPD) , Sleep Apnea GI Medical History: Reports: Ulcerative Colitis Musculoskeltal Medical History: Reports: Arthritis Past Surgical History Past Surgical History: Reports: Tonsillectomy, Other - Tooth extraction Social History Lives with: Alone Smoking Status: Former Smoker Number of Years Smokin Last Time Smoked: 04/2017 Frequency of Alcohol Use: None Hx Recreational Drug Use: Yes Drugs: Cocaine Hx Prescription Drug Abuse: No - Advance Directive Resuscitation Status: Full Code Family History Family History: CAD, COPD, CVA, DM, Hypertension Parental Family History Reviewed: Yes Children Family History Reviewed: Yes Sibling(s) Family History Reviewed.: Yes Medication/Allergy Home Medications: Apixaban [Eliquis 2.5 mg Tablet] 2.5 mg PO Q12 12/07/17 Torsemide [Demadex 20 mg Tablet] 20 mg PO DAILY 12/07/17 Metoprolol Tartrate [Lopressor 50 mg Tablet] 25 mg PO DAILY 12/08/17 Simvastatin [Zocor 20 mg Tablet] 10 mg PO QHS 12/08/17 Allergies/Adverse Reactions: No Known Allergies Allergy (Verified 01/31/18 16:08) Review of Systems Constitutional: PRESENT: weight gain Eyes: ABSENT: visual disturbances Ears: ABSENT: hearing changes Cardiovascular: PRESENT: edema. ABSENT: chest pain, dyspnea on exertion, orthropnea, palpitations Respiratory: PRESENT: dyspnea. ABSENT: cough, hemoptysis Gastrointestinal: ABSENT: abdominal pain, constipation, diarrhea, hematemesis, hematochezia, nausea, vomiting Genitourinary: ABSENT: dysuria, hematuria Musculoskeletal: ABSENT: joint swelling Integumentary: ABSENT: rash, wounds Neurological: ABSENT: abnormal gait, abnormal speech, confusion, dizziness, focal weakness, syncope Psychiatric: ABSENT: anxiety, depression, homidical ideation, suicidal ideation Endocrine: ABSENT: cold intolerance, heat intolerance, menstrual abnormalities, polydipsia, polyuria Hematologic/Lymphatic: ABSENT: easy bleeding, easy bruising, lymphadenopathy Physical Exam Vital Signs: Temp Pulse Resp BP Pulse Ox 97.2 F 72 19 102/62 97 02/01/18 16:01 02/01/18 16:01 02/01/18 16:01 02/01/18 16:01 02/01/18 17:56 Intake & Output 01/31/18 02/01/18 02/02/18 06:59 06:59 06:59 Intake Total 266 Balance 266 Weight 190.509 kg General appearance: PRESENT: morbidly obese Head exam: PRESENT: atraumatic, normocephalic Eye exam: PRESENT: PERRLA Mouth exam: PRESENT: moist Neck exam: PRESENT: full ROM Respiratory exam: PRESENT: decreased breath sounds Cardiovascular exam: PRESENT: RRR, +S1, +S2, systolic murmur GI/Abdominal exam: PRESENT: other - Abdominal wall edema Gentrourinary exam: PRESENT: scrotal swelling, other - He has diffuse huge scrotal swelling Extremities exam: PRESENT: pedal edema, other - He has extensive edema of the lower extremities with Unna boots in place Neurological exam: PRESENT: alert Psychiatric exam: PRESENT: appropriate affect Skin exam: PRESENT: erythema - He has intertriginous erythema, foul-smelling of the groin Results Impressions: Chest X-Ray 01/31/18 17:04 IMPRESSION: NO ACUTE RADIOGRAPHIC FINDING IN THE CHEST.Similar cardiomegaly and mild vascular congestion. Assessment & Plan - Diagnosis (1) Acute on chronic diastolic heart failure Is this a current diagnosis for this admission?: Yes (2) Anasarca Is this a current diagnosis for this admission?: Yes Plan: Start Lasix drip (3) Scrotal edema Is this a current diagnosis for this admission?: Yes (4) Hydrocele, bilateral Is this a current diagnosis for this admission?: Yes Plan: Consultation from urology (5) Super obesity Is this a current diagnosis for this admission?: Yes (6) Intertriginous candidiasis Is this a current diagnosis for this admission?: Yes Plan: Topical antifungal (7) Intertriginous dermatitis associated with moisture Is this a current diagnosis for this admission?: Yes (8) Paroxysmal atrial fibrillation Is this a current diagnosis for this admission?: Yes
--- NOTE | 2018-02-01 21:02 | PDOC PROGRESS REPORT ---
Subjective Progress Note for:: 02/01/18 Subjective:: Patient was seen by the bedside, the scrotal swelling is at the background of anasarca there is no urology mental health nurse practitioner on Reason For Visit: CHRONIC AFIB, SCROTAL SWELLING, CHF, RENAL Physical Exam Vital Signs: Temp Pulse Resp BP Pulse Ox 97.2 F 72 19 102/62 97 02/01/18 16:01 02/01/18 16:01 02/01/18 16:01 02/01/18 16:01 02/01/18 17:56 Intake & Output 01/31/18 02/01/18 02/02/18 06:59 06:59 06:59 Intake Total 266 Balance 266 Weight 190.509 kg General appearance: PRESENT: obese Eye exam: PRESENT: PERRLA Respiratory exam: PRESENT: clear to auscultation dell Cardiovascular exam: PRESENT: +S1, +S2 GI/Abdominal exam: PRESENT: firm Results Impressions: Chest X-Ray 01/31/18 17:04 IMPRESSION: NO ACUTE RADIOGRAPHIC FINDING IN THE CHEST.Similar cardiomegaly and mild vascular congestion. Assessment & Plan - Diagnosis (1) Acute on chronic diastolic heart failure Is this a current diagnosis for this admission?: Yes (2) Anasarca Is this a current diagnosis for this admission?: Yes (3) Scrotal edema Is this a current diagnosis for this admission?: Yes (4) Hydrocele, bilateral Is this a current diagnosis for this admission?: Yes (5) Super obesity Is this a current diagnosis for this admission?: Yes (6) Intertriginous candidiasis Is this a current diagnosis for this admission?: Yes (7) Intertriginous dermatitis associated with moisture Is this a current diagnosis for this admission?: Yes (8) Paroxysmal atrial fibrillation Is this a current diagnosis for this admission?: Yes - Plan Summary Plan Summary: Continue present treatment
[2018-02-02] MEDS: NYSTATIN TOPICAL POWDER 15 GM TP SCH ×3 (00:36→22:09)
[2018-02-02] MEDS: ACETAMINOPHEN 325 MG TABLET PO PRN ×2 (00:37→18:43)
[2018-02-02] MEDS: TORSEMIDE 20 MG TABLET PO SCH (11:17)
[2018-02-02] MEDS: METOPROLOL TARTRATE 25 MG TABLET PO SCH (11:18)
[2018-02-02] MEDS: APIXABAN 2.5 MG TABLET PO SCH ×2 (11:19→22:09)
[2018-02-02] MEDS: NORMAL SALINE 250 ML with FUROSEMIDE 250 MG IV PRN ×2 (11:32)
[2018-02-02] MEDS: CALCIUM CARBONATE 500 MG TAB.CHEW PO PRN (12:17)
--- NOTE | 2018-02-02 12:56 | PDOC CONSULTATION ---
Consultation Consult Date: 02/02/18 Attending physician:: HUONG GONZALEZ Consult reason:: Large scrotum History of Present Illness Admission Date/PCP: 01/31/18 19:55 ZOYA LEONE MD Patient complains of: Enlarged swollen scrotum History of Present Illness: ELEONORA SHEFFIELD is a 57 year old male Past Medical History Cardiac Medical History: Reports: Atrial Fibrillation, Congestive Heart Failure , Coronary Artery Disease, Hyperlipidema, Hypertension, Peripheral Vascular Disease, Pulmonary Embolism Pulmonary Medical History: Reports: Chronic Obstructive Pulmonary Disease (COPD) , Sleep Apnea GI Medical History: Reports: Ulcerative Colitis Musculoskeltal Medical History: Reports: Arthritis Psychiatric Medical History: Denies: Depression Past Surgical History Past Surgical History: Reports: Tonsillectomy, Other - Tooth extraction Social History Lives with: Alone Smoking Status: Former Smoker Number of Years Smokin Last Time Smoked: 04/2017 Frequency of Alcohol Use: None Hx Recreational Drug Use: Yes Drugs: Cocaine Hx Prescription Drug Abuse: No - Advance Directive Resuscitation Status: Full Code Family History Family History: CAD, COPD, CVA, DM, Hypertension Parental Family History Reviewed: No Children Family History Reviewed: No Sibling(s) Family History Reviewed.: No Medication/Allergy Home Medications: Apixaban [Eliquis 2.5 mg Tablet] 2.5 mg PO Q12 12/07/17 Torsemide [Demadex 20 mg Tablet] 20 mg PO DAILY 12/07/17 Metoprolol Tartrate [Lopressor 50 mg Tablet] 25 mg PO DAILY 12/08/17 Simvastatin [Zocor 20 mg Tablet] 10 mg PO QHS 12/08/17 Allergies/Adverse Reactions: No Known Allergies Allergy (Verified 01/31/18 16:08) Physical Exam Vital Signs: Temp Pulse Resp BP Pulse Ox 97.1 F 135 H 18 105/76 99 02/02/18 07:38 02/02/18 07:38 02/02/18 07:38 02/02/18 07:38 02/02/18 07:38 Intake & Output 02/01/18 02/02/18 02/03/18 06:59 06:59 06:59 Intake Total 735 175 Balance 735 175 Weight 180.1 kg Results Laboratory Results: Ultrasound was done to the scrotum and shows hydrocele and edema of the scrotal skin this is from his heart failure and there is generalized edema in the lower extremities and elsewhere. Impressions: Chest X-Ray 01/31/18 17:04 IMPRESSION: NO ACUTE RADIOGRAPHIC FINDING IN THE CHEST.Similar cardiomegaly and mild vascular congestion. Assessment & Plan - Diagnosis (1) Hydrocele, bilateral Is this a current diagnosis for this admission?: No - Plan Summary Plan Summary: No need for surgery just treat his heart failure and the swelling in the edema will subside. The patient noticed that
--- NOTE | 2018-02-02 20:49 | PDOC PROGRESS REPORT ---
Subjective Progress Note for:: 02/02/18 Subjective:: He was seen today by urology, there is no urologic intervention anticipated, he has severe anasarca, the hydrocele is part of the anasarca syndrome presently on furosemide infusion Reason For Visit: CHRONIC AFIB, SCROTAL SWELLING, CHF, RENAL Physical Exam Vital Signs: Temp Pulse Resp BP Pulse Ox 97.7 F 53 L 19 122/68 99 02/02/18 15:49 02/02/18 15:49 02/02/18 15:49 02/02/18 15:49 02/02/18 15:49 Intake & Output 02/01/18 02/02/18 02/03/18 06:59 06:59 06:59 Intake Total 735 1032 Balance 735 1032 Weight 180.1 kg General appearance: PRESENT: mild distress Eye exam: PRESENT: PERRLA Respiratory exam: PRESENT: clear to auscultation dell Cardiovascular exam: PRESENT: +S1, +S2 GI/Abdominal exam: PRESENT: other - Abdominal edema Neurological exam: PRESENT: alert Results Impressions: Chest X-Ray 01/31/18 17:04 IMPRESSION: NO ACUTE RADIOGRAPHIC FINDING IN THE CHEST.Similar cardiomegaly and mild vascular congestion. Assessment & Plan - Diagnosis (1) Acute on chronic diastolic heart failure Is this a current diagnosis for this admission?: Yes (2) Anasarca Is this a current diagnosis for this admission?: Yes (3) Scrotal edema Is this a current diagnosis for this admission?: Yes (4) Hydrocele, bilateral Is this a current diagnosis for this admission?: Yes (5) Super obesity Is this a current diagnosis for this admission?: Yes (6) Intertriginous candidiasis Is this a current diagnosis for this admission?: Yes (7) Intertriginous dermatitis associated with moisture Is this a current diagnosis for this admission?: Yes (8) Paroxysmal atrial fibrillation Is this a current diagnosis for this admission?: Yes - Plan Summary Plan Summary: Continue IV furosemide
[2018-02-02] MEDS: SIMVASTATIN 10 MG TABLET PO SCH (22:09)
[2018-02-03] MEDS: CALCIUM CARBONATE 500 MG TAB.CHEW PO PRN ×2 (01:56→20:26)
[2018-02-03] MEDS: APIXABAN 2.5 MG TABLET PO SCH ×2 (11:00→22:29)
[2018-02-03] MEDS: METOPROLOL TARTRATE 25 MG TABLET PO SCH (11:00)
[2018-02-03] MEDS: NYSTATIN TOPICAL POWDER 15 GM TP SCH ×2 (11:00→22:30)
[2018-02-03] MEDS: TORSEMIDE 20 MG TABLET PO SCH (11:00)
[2018-02-03] MEDS: NORMAL SALINE 250 ML with FUROSEMIDE 250 MG IV PRN ×2 (14:46)
[2018-02-03] MEDS: ACETAMINOPHEN 325 MG TABLET PO PRN (20:27)
--- NOTE | 2018-02-03 20:58 | PDOC PROGRESS REPORT ---
Subjective Progress Note for:: 02/03/18 Subjective:: Patient seen by the bedside, he continues to require IV furosemide infusion Reason For Visit: CHRONIC AFIB, SCROTAL SWELLING, CHF, RENAL Physical Exam Vital Signs: Temp Pulse Resp BP Pulse Ox 97.6 F 73 14 106/75 99 02/03/18 19:45 02/03/18 19:45 02/03/18 19:45 02/03/18 19:45 02/03/18 19:45 Intake & Output 02/02/18 02/03/18 02/04/18 06:59 06:59 06:59 Intake Total 735 1559 736 Balance 735 1559 736 Weight 180.1 kg 171.1 kg 181.3 kg General appearance: PRESENT: no acute distress Eye exam: PRESENT: PERRLA Respiratory exam: PRESENT: clear to auscultation dell Cardiovascular exam: PRESENT: +S1, +S2 GI/Abdominal exam: PRESENT: soft Neurological exam: PRESENT: alert Results Impressions: Chest X-Ray 01/31/18 17:04 IMPRESSION: NO ACUTE RADIOGRAPHIC FINDING IN THE CHEST.Similar cardiomegaly and mild vascular congestion. Assessment & Plan - Diagnosis (1) Acute on chronic diastolic heart failure Is this a current diagnosis for this admission?: Yes (2) Anasarca Is this a current diagnosis for this admission?: Yes (3) Scrotal edema Is this a current diagnosis for this admission?: Yes (4) Hydrocele, bilateral Is this a current diagnosis for this admission?: No (5) Super obesity Is this a current diagnosis for this admission?: Yes (6) Intertriginous candidiasis Is this a current diagnosis for this admission?: Yes (7) Intertriginous dermatitis associated with moisture Is this a current diagnosis for this admission?: Yes (8) Paroxysmal atrial fibrillation Is this a current diagnosis for this admission?: Yes
[2018-02-03 21:57] LABS: ALANINE AMINOTRANSFERASE 17 U/L (21-72); ALBUMIN 3.1 g/dL (3.5-5.0); ALKALINE PHOSPHATASE 56 U/L (38-126); ANION GAP 10 (5-19); ASPARTATE AMINO TRANSFERASE 14 U/L (17-59); BILIRUBIN,DIRECT 0.7 mg/dL (0.0-0.4); BILIRUBIN,TOTAL 1.2 mg/dL (0.2-1.3); BLOOD UREA NITROGEN 25 mg/dL (7-20); CALCIUM 8.7 mg/dL (8.4-10.2); CARBON DIOXIDE 31 mmol/L (22-30); CHLORIDE 103 mmol/L (98-107); GLUCOSE 122 mg/dL (75-110); POTASSIUM 3.8 mmol/L (3.6-5.0); SODIUM 144.4 mmol/L (137-145)
[2018-02-03] MEDS: SIMVASTATIN 10 MG TABLET PO SCH (22:29)
[2018-02-03] MEDS: SODIUM CHLORIDE NASAL SPRAY 44 ML NASL PRN (22:30)
[2018-02-04 08:41] LABS: ALANINE AMINOTRANSFERASE 20 U/L (21-72); ALBUMIN 3.1 g/dL (3.5-5.0); ALKALINE PHOSPHATASE 59 U/L (38-126); ANION GAP 13 (5-19); ASPARTATE AMINO TRANSFERASE 15 U/L (17-59); BILIRUBIN,DIRECT 0.6 mg/dL (0.0-0.4); BILIRUBIN,TOTAL 1.3 mg/dL (0.2-1.3); BLOOD UREA NITROGEN 26 mg/dL (7-20); CALCIUM 8.6 mg/dL (8.4-10.2); CARBON DIOXIDE 29 mmol/L (22-30); CHLORIDE 103 mmol/L (98-107); GLUCOSE 103 mg/dL (75-110); POTASSIUM 3.9 mmol/L (3.6-5.0); SODIUM 144.6 mmol/L (137-145); TOTAL PROTEIN 6.9 g/dL (6.3-8.2)
[2018-02-04] MEDS: METOPROLOL TARTRATE 25 MG TABLET PO SCH (09:46)
[2018-02-04] MEDS: APIXABAN 2.5 MG TABLET PO SCH ×2 (09:46→21:28)
[2018-02-04] MEDS: NORMAL SALINE 250 ML with FUROSEMIDE 250 MG IV PRN ×2 (09:46)
[2018-02-04] MEDS: NYSTATIN TOPICAL POWDER 15 GM TP SCH ×2 (09:46→21:36)
[2018-02-04] MEDS: TORSEMIDE 20 MG TABLET PO SCH (09:46)
[2018-02-04] MEDS: SODIUM CHLORIDE NASAL SPRAY 44 ML NASL PRN (09:47)
[2018-02-04] MEDS: ACETAMINOPHEN 325 MG TABLET PO PRN ×2 (15:05→21:27)
[2018-02-04] MEDS: CALCIUM CARBONATE 500 MG TAB.CHEW PO PRN ×2 (15:05→21:27)
--- NOTE | 2018-02-04 21:03 | PDOC PROGRESS REPORT ---
Subjective Progress Note for:: 02/04/18 Subjective:: Patient seen by the bedside, the nurses tried to ambulate the patient with minimal success. He is extremely obese Reason For Visit: CHRONIC AFIB, SCROTAL SWELLING, CHF, RENAL Physical Exam Vital Signs: Temp Pulse Resp BP Pulse Ox 98.3 F 84 15 118/64 97 02/04/18 19:50 02/04/18 19:50 02/04/18 19:50 02/04/18 19:50 02/04/18 19:50 Intake & Output 02/03/18 02/04/18 02/05/18 06:59 06:59 06:59 Intake Total 1559 1380 568 Balance 1559 1380 568 Weight 171.1 kg 181.6 kg General appearance: PRESENT: mild distress Eye exam: PRESENT: PERRLA Respiratory exam: PRESENT: decreased breath sounds Cardiovascular exam: PRESENT: +S1, +S2 GI/Abdominal exam: PRESENT: soft Neurological exam: PRESENT: alert Results Laboratory Results: 02/04/18 08:04 02/03/18 02/04/18 21:20 08:04 Sodium 144.4 144.6 Potassium 3.8 3.9 Chloride 103 103 Carbon Dioxide 31 H 29 Anion Gap 10 13 BUN 25 H 26 H Creatinine 1.44 H 1.34 H Est GFR ( Amer) > 60 > 60 Est GFR (Non-Af Amer) 51 L 55 L Glucose 122 H 103 Calcium 8.7 8.6 Total Bilirubin 1.2 1.3 AST 14 L 15 L ALT 17 L 20 L Alkaline Phosphatase 56 59 Total Protein 7.0 6.9 Albumin 3.1 L 3.1 L Impressions: Chest X-Ray 01/31/18 17:04 IMPRESSION: NO ACUTE RADIOGRAPHIC FINDING IN THE CHEST.Similar cardiomegaly and mild vascular congestion. Assessment & Plan - Diagnosis (1) Acute on chronic diastolic heart failure Is this a current diagnosis for this admission?: Yes (2) Anasarca Is this a current diagnosis for this admission?: Yes (3) Scrotal edema Is this a current diagnosis for this admission?: Yes (4) Hydrocele, bilateral Is this a current diagnosis for this admission?: Yes (5) Super obesity Is this a current diagnosis for this admission?: Yes (6) Intertriginous candidiasis Is this a current diagnosis for this admission?: Yes (7) Intertriginous dermatitis associated with moisture Is this a current diagnosis for this admission?: Yes (8) Paroxysmal atrial fibrillation Is this a current diagnosis for this admission?: Yes - Plan Summary Plan Summary: Continue IV furosemide
[2018-02-04] MEDS: SIMVASTATIN 10 MG TABLET PO SCH (21:27)
[2018-02-05 09:44] LABS: ALANINE AMINOTRANSFERASE 21 U/L (21-72); ALBUMIN 3.2 g/dL (3.5-5.0); ALKALINE PHOSPHATASE 60 U/L (38-126); ANION GAP 10 (5-19); ASPARTATE AMINO TRANSFERASE 18 U/L (17-59); BILIRUBIN,DIRECT 0.7 mg/dL (0.0-0.4); BILIRUBIN,TOTAL 1.2 mg/dL (0.2-1.3); BLOOD UREA NITROGEN 26 mg/dL (7-20); CALCIUM 8.7 mg/dL (8.4-10.2); CARBON DIOXIDE 32 mmol/L (22-30); CHLORIDE 104 mmol/L (98-107); GLUCOSE 115 mg/dL (75-110); POTASSIUM 3.8 mmol/L (3.6-5.0); SODIUM 146.4 mmol/L (137-145); TOTAL PROTEIN 7.3 g/dL (6.3-8.2)
[2018-02-05] MEDS: METOPROLOL TARTRATE 25 MG TABLET PO SCH (10:20)
[2018-02-05] MEDS: NYSTATIN TOPICAL POWDER 15 GM TP SCH ×2 (10:29→22:05)
[2018-02-05] MEDS: TORSEMIDE 20 MG TABLET PO SCH (10:29)
[2018-02-05] MEDS: APIXABAN 2.5 MG TABLET PO SCH ×2 (10:29→22:05)
[2018-02-05] MEDS: ACETAMINOPHEN 325 MG TABLET PO PRN (13:07)
[2018-02-05] MEDS: CALCIUM CARBONATE 500 MG TAB.CHEW PO PRN (13:07)
[2018-02-05 13:37] LABS: UR PRO/CREAT RATIO RESULT 0.4 mg/mg (0.0-0.2); URINE CREATININE 41.5 mg/dL (22-328); URINE PROTEIN 17.6 mg/dL (<12)
[2018-02-05] MEDS: NORMAL SALINE 250 ML with FUROSEMIDE 250 MG IV PRN ×2 (15:05)
--- NOTE | 2018-02-05 15:26 | PDOC PROGRESS REPORT ---
Subjective Progress Note for:: 02/05/18 Subjective:: Patient is alert, he complained of insomnia, still on the Lasix infusion Reason For Visit: CHRONIC AFIB, SCROTAL SWELLING, CHF, RENAL Physical Exam Vital Signs: Temp Pulse Resp BP Pulse Ox 98.0 F 134 H 16 107/71 99 02/05/18 11:36 02/05/18 11:36 02/05/18 11:36 02/05/18 11:36 02/05/18 11:36 Intake & Output 02/04/18 02/05/18 02/06/18 06:59 06:59 06:59 Intake Total 1380 1056 147 Balance 1380 1056 147 Weight 181.6 kg 182.4 kg General appearance: PRESENT: no acute distress Eye exam: PRESENT: PERRLA Respiratory exam: PRESENT: clear to auscultation dell Cardiovascular exam: PRESENT: +S1, +S2 GI/Abdominal exam: PRESENT: soft Neurological exam: PRESENT: alert, CN II-XII grossly intact Results Laboratory Results: 02/05/18 08:48 02/05/18 08:48 Sodium 146.4 H Potassium 3.8 Chloride 104 Carbon Dioxide 32 H Anion Gap 10 BUN 26 H Creatinine 1.40 H Est GFR ( Amer) > 60 Est GFR (Non-Af Amer) 53 L Glucose 115 H Calcium 8.7 Total Bilirubin 1.2 AST 18 ALT 21 Alkaline Phosphatase 60 Total Protein 7.3 Albumin 3.2 L Impressions: Chest X-Ray 01/31/18 17:04 IMPRESSION: NO ACUTE RADIOGRAPHIC FINDING IN THE CHEST.Similar cardiomegaly and mild vascular congestion. Assessment & Plan - Diagnosis (1) Acute on chronic diastolic heart failure Is this a current diagnosis for this admission?: Yes (2) Anasarca Is this a current diagnosis for this admission?: Yes (3) Scrotal edema Is this a current diagnosis for this admission?: Yes (4) Hydrocele, bilateral Is this a current diagnosis for this admission?: Yes (5) Super obesity Is this a current diagnosis for this admission?: Yes (6) Intertriginous candidiasis Is this a current diagnosis for this admission?: Yes (7) Intertriginous dermatitis associated with moisture Is this a current diagnosis for this admission?: Yes (8) Paroxysmal atrial fibrillation Is this a current diagnosis for this admission?: Yes - Plan Summary Plan Summary: Continue IV Lasix infusion
[2018-02-05] MEDS: PHARMACY COMMUNICATION ORDER MC SCH (18:05)
[2018-02-05] MEDS: SIMVASTATIN 10 MG TABLET PO SCH (22:05)
[2018-02-05] MEDS: ZOLPIDEM TARTRATE 5 MG TABLET PO PRN (22:05)
[2018-02-06 09:03] LABS: ALANINE AMINOTRANSFERASE 26 U/L (21-72); ALBUMIN 3.1 g/dL (3.5-5.0); ALKALINE PHOSPHATASE 59 U/L (38-126); ANION GAP 11 (5-19); ASPARTATE AMINO TRANSFERASE 24 U/L (17-59); BILIRUBIN,DIRECT 0.7 mg/dL (0.0-0.4); BILIRUBIN,TOTAL 1.2 mg/dL (0.2-1.3); BLOOD UREA NITROGEN 29 mg/dL (7-20); CALCIUM 8.6 mg/dL (8.4-10.2); CARBON DIOXIDE 32 mmol/L (22-30); CHLORIDE 102 mmol/L (98-107); GLUCOSE 108 mg/dL (75-110); POTASSIUM 3.8 mmol/L (3.6-5.0); SODIUM 144.9 mmol/L (137-145); TOTAL PROTEIN 7.1 g/dL (6.3-8.2)
[2018-02-06] MEDS: TORSEMIDE 20 MG TABLET PO SCH (10:04)
[2018-02-06] MEDS: APIXABAN 2.5 MG TABLET PO SCH ×2 (10:05→21:13)
[2018-02-06] MEDS: NYSTATIN TOPICAL POWDER 15 GM TP SCH ×2 (10:05→23:49)
[2018-02-06] MEDS: METOPROLOL TARTRATE 25 MG TABLET PO SCH (10:48)
--- NOTE | 2018-02-06 15:57 | PDOC PROGRESS REPORT ---
Subjective Progress Note for:: 02/06/18 Subjective:: Patient is alert, advised to be more ambulatory Reason For Visit: CHRONIC AFIB, SCROTAL SWELLING, CHF, RENAL Physical Exam Vital Signs: Temp Pulse Resp BP Pulse Ox 98.3 F 61 18 96/66 L 97 02/06/18 00:00 02/06/18 00:00 02/06/18 00:00 02/06/18 00:00 02/06/18 09:15 Intake & Output 02/05/18 02/06/18 02/07/18 06:59 06:59 06:59 Intake Total 1056 2471 Balance 1056 2471 Weight 182.4 kg 180.7 kg General appearance: PRESENT: morbidly obese Head exam: PRESENT: atraumatic, normocephalic Eye exam: PRESENT: PERRLA Ear exam: PRESENT: normal external ear exam Mouth exam: PRESENT: moist, tongue midline Neck exam: PRESENT: full ROM Cardiovascular exam: PRESENT: RRR, +S1, +S2 Vascular exam: PRESENT: normal capillary refill GI/Abdominal exam: PRESENT: normal bowel sounds, soft Rectal exam: PRESENT: deferred Neurological exam: PRESENT: alert, CN II-XII grossly intact. ABSENT: motor sensory deficit Psychiatric exam: PRESENT: appropriate affect, normal mood Skin exam: PRESENT: dry, intact, warm Results Laboratory Results: 02/06/18 08:12 02/06/18 08:12 Sodium 144.9 Potassium 3.8 Chloride 102 Carbon Dioxide 32 H Anion Gap 11 BUN 29 H Creatinine 1.38 H Est GFR ( Amer) > 60 Est GFR (Non-Af Amer) 53 L Glucose 108 Calcium 8.6 Total Bilirubin 1.2 AST 24 ALT 26 Alkaline Phosphatase 59 Total Protein 7.1 Albumin 3.1 L Impressions: Chest X-Ray 01/31/18 17:04 IMPRESSION: NO ACUTE RADIOGRAPHIC FINDING IN THE CHEST.Similar cardiomegaly and mild vascular congestion. Assessment & Plan - Diagnosis (1) Acute on chronic diastolic heart failure Is this a current diagnosis for this admission?: Yes (2) Anasarca Is this a current diagnosis for this admission?: Yes (3) Scrotal edema Is this a current diagnosis for this admission?: Yes (4) Hydrocele, bilateral Is this a current diagnosis for this admission?: Yes (5) Super obesity Is this a current diagnosis for this admission?: Yes (6) Intertriginous candidiasis Is this a current diagnosis for this admission?: Yes (7) Intertriginous dermatitis associated with moisture Is this a current diagnosis for this admission?: Yes (8) Paroxysmal atrial fibrillation Is this a current diagnosis for this admission?: Yes
[2018-02-06] MEDS: ZOLPIDEM TARTRATE 5 MG TABLET PO PRN (21:13)
[2018-02-06] MEDS: SIMVASTATIN 10 MG TABLET PO SCH (21:13)
[2018-02-06] MEDS: NORMAL SALINE 250 ML with FUROSEMIDE 250 MG IV PRN ×2 (21:14)
[2018-02-06] MEDS: PHARMACY COMMUNICATION ORDER MC SCH (21:23)
[2018-02-06] MEDS: ACETAMINOPHEN 325 MG TABLET PO PRN (23:52)
[2018-02-06] MEDS: CALCIUM CARBONATE 500 MG TAB.CHEW PO PRN (23:52)
[2018-02-07 08:43] LABS: ALANINE AMINOTRANSFERASE 24 U/L (21-72); ALBUMIN 3.1 g/dL (3.5-5.0); ALKALINE PHOSPHATASE 64 U/L (38-126); ANION GAP 8 (5-19); ASPARTATE AMINO TRANSFERASE 26 U/L (17-59); BILIRUBIN,DIRECT 0.6 mg/dL (0.0-0.4); BILIRUBIN,TOTAL 1.2 mg/dL (0.2-1.3); BLOOD UREA NITROGEN 32 mg/dL (7-20); CALCIUM 8.6 mg/dL (8.4-10.2); CARBON DIOXIDE 35 mmol/L (22-30); CHLORIDE 100 mmol/L (98-107); GLUCOSE 88 mg/dL (75-110); POTASSIUM 4.2 mmol/L (3.6-5.0); SODIUM 142.8 mmol/L (137-145); TOTAL PROTEIN 7.1 g/dL (6.3-8.2)
[2018-02-07] MEDS: TORSEMIDE 20 MG TABLET PO SCH (10:10)
[2018-02-07] MEDS: NYSTATIN TOPICAL POWDER 15 GM TP SCH ×2 (10:11→21:23)
[2018-02-07] MEDS: METOPROLOL TARTRATE 25 MG TABLET PO SCH (10:11)
[2018-02-07] MEDS: APIXABAN 2.5 MG TABLET PO SCH ×2 (10:11→21:24)
[2018-02-07] MEDS: NORMAL SALINE 250 ML with FUROSEMIDE 250 MG IV PRN ×2 (18:44)
[2018-02-07] MEDS: CALCIUM CARBONATE 500 MG TAB.CHEW PO PRN (18:44)
[2018-02-07] MEDS: PHARMACY COMMUNICATION ORDER MC SCH (18:56)
--- NOTE | 2018-02-07 20:37 | PDOC PROGRESS REPORT ---
Subjective Progress Note for:: 02/07/18 Subjective:: Patient was seen by the bedside, the scrotal swelling is decreased in size, probably discharge him tomorrow Reason For Visit: CHRONIC AFIB, SCROTAL SWELLING, CHF, RENAL Physical Exam Vital Signs: Temp Pulse Resp BP Pulse Ox 98.0 F 88 20 112/77 96 02/07/18 15:43 02/07/18 15:43 02/07/18 15:43 02/07/18 15:43 02/07/18 15:43 Intake & Output 02/06/18 02/07/18 02/08/18 06:59 06:59 06:59 Intake Total 2471 9 1315 Balance 2470 2098 131 Weight 180.7 kg 182.2 kg General appearance: PRESENT: no acute distress Eye exam: PRESENT: PERRLA Respiratory exam: PRESENT: chest wall tenderness Cardiovascular exam: PRESENT: +S1, +S2 GI/Abdominal exam: PRESENT: soft Neurological exam: PRESENT: alert Results Laboratory Results: 02/07/18 07:53 02/07/18 07:53 Sodium 142.8 Potassium 4.2 Chloride 100 Carbon Dioxide 35 H Anion Gap 8 BUN 32 H Creatinine 1.51 H Est GFR ( Amer) 58 L Est GFR (Non-Af Amer) 48 L Glucose 88 Calcium 8.6 Total Bilirubin 1.2 AST 26 ALT 24 Alkaline Phosphatase 64 Total Protein 7.1 Albumin 3.1 L Impressions: Chest X-Ray 01/31/18 17:04 IMPRESSION: NO ACUTE RADIOGRAPHIC FINDING IN THE CHEST.Similar cardiomegaly and mild vascular congestion. Assessment & Plan - Diagnosis (1) Acute on chronic diastolic heart failure Is this a current diagnosis for this admission?: Yes (2) Anasarca Is this a current diagnosis for this admission?: Yes (3) Scrotal edema Is this a current diagnosis for this admission?: Yes (4) Hydrocele, bilateral Is this a current diagnosis for this admission?: Yes (5) Super obesity Is this a current diagnosis for this admission?: Yes (6) Intertriginous candidiasis Is this a current diagnosis for this admission?: Yes (7) Intertriginous dermatitis associated with moisture Is this a current diagnosis for this admission?: Yes (8) Paroxysmal atrial fibrillation Is this a current diagnosis for this admission?: Yes
[2018-02-07] MEDS: ZOLPIDEM TARTRATE 5 MG TABLET PO PRN (21:24)
[2018-02-07] MEDS: SIMVASTATIN 10 MG TABLET PO SCH (21:24)
[2018-02-08] MEDS: ACETAMINOPHEN 325 MG TABLET PO PRN (02:55)
[2018-02-08 08:44] LABS: ALANINE AMINOTRANSFERASE 27 U/L (21-72); ALKALINE PHOSPHATASE 62 U/L (38-126); ANION GAP 10 (5-19); ASPARTATE AMINO TRANSFERASE 29 U/L (17-59); BILIRUBIN,DIRECT 0.6 mg/dL (0.0-0.4); BLOOD UREA NITROGEN 35 mg/dL (7-20); CALCIUM 8.6 mg/dL (8.4-10.2); CARBON DIOXIDE 34 mmol/L (22-30); CHLORIDE 99 mmol/L (98-107); GLUCOSE 106 mg/dL (75-110); POTASSIUM 4.2 mmol/L (3.6-5.0); SODIUM 143.2 mmol/L (137-145)
[2018-02-08] MEDS: TORSEMIDE 20 MG TABLET PO SCH (10:08)
[2018-02-08] MEDS: APIXABAN 2.5 MG TABLET PO SCH ×2 (10:08→22:23)
[2018-02-08] MEDS: NYSTATIN TOPICAL POWDER 15 GM TP SCH (10:19)
[2018-02-08] MEDS: METOPROLOL TARTRATE 25 MG TABLET PO SCH (10:20)
[2018-02-08] MEDS: PHARMACY COMMUNICATION ORDER MC SCH (18:50)
[2018-02-08] MEDS: NORMAL SALINE 250 ML with FUROSEMIDE 250 MG IV PRN ×2 (18:50)
--- NOTE | 2018-02-08 21:04 | PDOC DISCHARGE SUMMARY ---
General - Admit/Disc Date/PCP Admission Date/Primary Care Provider: 01/31/18 19:55 ZOYA LEONE MD Discharge Date: 02/08/18 - Discharge Diagnosis (1) Acute on chronic diastolic heart failure Is this a current diagnosis for this admission?: Yes (2) Anasarca Is this a current diagnosis for this admission?: Yes (3) Scrotal edema Is this a current diagnosis for this admission?: Yes (4) Hydrocele, bilateral Is this a current diagnosis for this admission?: Yes (5) Super obesity Is this a current diagnosis for this admission?: Yes (6) Intertriginous candidiasis Is this a current diagnosis for this admission?: Yes (7) Intertriginous dermatitis associated with moisture Is this a current diagnosis for this admission?: Yes (8) Paroxysmal atrial fibrillation Is this a current diagnosis for this admission?: Yes - Additional Information Resuscitation Status: Full Code Discharge Diet: Cardiac Discharge Activity: Activity As Tolerated, Balance Activity w/Rest, Weigh Daily Home Medications: Apixaban [Eliquis 2.5 mg Tablet] 2.5 mg PO Q12 12/07/17 Torsemide [Demadex 20 mg Tablet] 20 mg PO DAILY 12/07/17 Metoprolol Tartrate [Lopressor 50 mg Tablet] 25 mg PO DAILY 12/08/17 Simvastatin [Zocor 20 mg Tablet] 10 mg PO QHS 12/08/17 Acetaminophen [Tylenol 325 mg Tablet] 650 mg PO Q6HP PRN tablet 02/08/18 History of Present Illness History of Present Illness: ELEONORA SHEFFIELD is a 57 year old male,Patient is well-known to me he has a history of severe morbid obesity ,chronic diastolic heart failure, nephrotic syndrome, chronic venous hypertension with stasis dermatitis with chronic ulcer of both lower extremities, with multiple hospital admission for the management of anasarca partly due to combination of worsening nephrotic syndrome and acute on chronic diastolic heart failure he came to the emergency room for evaluation of scrotal swelling, he came initially to the emergency room about 3 days ago at the time ultrasound of the testicles was obtained it demonstrated severe hydrocele with scrotal edema, the swelling is so large that his penis is buried in his scrotum and it is not entirely visualized that is also severe the scrotal swelling is.He told me that he has difficulty ambulating Hospital Course Hospital Course: Patient was admitted for the management of anasarca due to combination of acute on chronic diastolic heart failure, nephrotic syndrome, he has severe scrotal edema with severe hydrocele, he was seen in consultation by urologist, it was felt that the hydrocele is part of the generalized anasarca and no urologic intervention was recommended. He was treated with intravenous furosemide infusion continuously he lost a lot of bloody fluid and weight. He is morbidly obese, he did not take part in any physical therapy activity Physical Exam Vital Signs: Temp Pulse Resp BP Pulse Ox 98.4 F 75 19 92/64 L 97 02/08/18 15:27 02/08/18 15:27 02/08/18 15:27 02/08/18 15:27 02/08/18 15:27 Intake & Output 02/07/18 02/08/18 02/09/18 06:59 06:59 06:59 Intake Total 2099 2165 1041 Balance 2099 2165 1041 Weight 182.2 kg General appearance: PRESENT: morbidly obese Eye exam: PRESENT: PERRLA Respiratory exam: PRESENT: clear to auscultation dell Cardiovascular exam: PRESENT: +S1, +S2 GI/Abdominal exam: PRESENT: soft, other - obese Neurological exam: PRESENT: alert Results Laboratory Results: 02/08/18 08:16 02/08/18 08:16 Sodium 143.2 Potassium 4.2 Chloride 99 Carbon Dioxide 34 H Anion Gap 10 BUN 35 H Creatinine 1.33 H Est GFR ( Amer) > 60 Est GFR (Non-Af Amer) 56 L Glucose 106 Calcium 8.6 Total Bilirubin 1.0 AST 29 ALT 27 Alkaline Phosphatase 62 Total Protein 7.0 Albumin 3.0 L Impressions: Chest X-Ray 01/31/18 17:04 IMPRESSION: NO ACUTE RADIOGRAPHIC FINDING IN THE CHEST.Similar cardiomegaly and mild vascular congestion. Qualifiers - * PATIENT BEING DISCHARGED WITH ANY OF THE FOLLOWING DIAGNOSIS: No
[2018-02-08] MEDS: SIMVASTATIN 10 MG TABLET PO SCH (22:23)
[2018-02-08] MEDS: ZOLPIDEM TARTRATE 5 MG TABLET PO PRN (22:23)
[2018-02-09] MEDS: ACETAMINOPHEN 325 MG TABLET PO PRN (01:12)
[2018-02-09 08:52] LABS: ALANINE AMINOTRANSFERASE 32 U/L (21-72); ALBUMIN 3.2 g/dL (3.5-5.0); ALKALINE PHOSPHATASE 70 U/L (38-126); ANION GAP 10 (5-19); ASPARTATE AMINO TRANSFERASE 28 U/L (17-59); BILIRUBIN,DIRECT 0.7 mg/dL (0.0-0.4); BILIRUBIN,TOTAL 1.2 mg/dL (0.2-1.3); BLOOD UREA NITROGEN 37 mg/dL (7-20); CALCIUM 8.6 mg/dL (8.4-10.2); CARBON DIOXIDE 35 mmol/L (22-30); CHLORIDE 98 mmol/L (98-107); GLUCOSE 88 mg/dL (75-110); POTASSIUM 4.4 mmol/L (3.6-5.0); SODIUM 143.2 mmol/L (137-145); TOTAL PROTEIN 6.8 g/dL (6.3-8.2)
[2018-02-09] MEDS: TORSEMIDE 20 MG TABLET PO SCH (09:50)
[2018-02-09] MEDS: METOPROLOL TARTRATE 25 MG TABLET PO SCH (09:50)
[2018-02-09] MEDS: APIXABAN 2.5 MG TABLET PO SCH (09:50)
[2018-02-09 16:53] VITALS: BP 119/78
== END 2018-02-09 17:01 | disposition home health service (06) | DRG 292 ==
LOC: ER 16:05 → OBSVTOIN 19:55 → EH 19:55 → 5 02-01 09:48
PROVIDERS: ADMIT Internal Medicine; ATTEND Internal Medicine
DX: I11.0 Hypertensive heart disease with heart failure (principal); Z68.43 Body mass index [BMI] 50.0-59.9, adult; B37.89 Other sites of candidiasis; L97.929 Non-pressure chronic ulcer of unspecified part of left lower leg with unspecified severity; L97.919 Non-pressure chronic ulcer of unspecified part of right lower leg with unspecified severity; I50.33 Acute on chronic diastolic (congestive) heart failure; I25.10 Atherosclerotic heart disease of native coronary artery without angina pectoris; D64.9 Anemia, unspecified; I48.0 Paroxysmal atrial fibrillation; I87.323 Chronic venous hypertension (idiopathic) with inflammation of bilateral lower extremity; E66.01 Morbid (severe) obesity due to excess calories; I73.9 Peripheral vascular disease, unspecified; N28.9 Disorder of kidney and ureter, unspecified; L30.8 Other specified dermatitis; E78.5 Hyperlipidemia, unspecified; N50.89 Other specified disorders of the male genital organs; G47.30 Sleep apnea, unspecified; N43.3 Hydrocele, unspecified; J44.9 Chronic obstructive pulmonary disease, unspecified; I87.2 Venous insufficiency (chronic) (peripheral); M19.90 Unspecified osteoarthritis, unspecified site; Z87.891 Personal history of nicotine dependence; Z82.49 Family history of ischemic heart disease and other diseases of the circulatory system; Z83.3 Family history of diabetes mellitus; Z86.711 Personal history of pulmonary embolism
CPT/HCPCS: 36415; 71045; 80053; 81001; 82570; 83880; 84156; 85025; 87070; 87086; 87088; 87186; 87205; 99285; J1940; J3490; J7050

== ENCOUNTER 2018-02-27 00:24 | Emergency (ER) | payer OTHER, MEDICARE, MEDICAID ==
[2018-02-27 01:52] LABS: ABSOLUTE EOSINOPHILS # (AUTO) 0.2 10^3/uL (0.0-0.6); ABSOLUTE LYMPHOCYTES (AUTO) 0.7 10^3/uL (0.5-4.7); ABSOLUTE MONOCYTES (AUTO) 0.5 10^3/uL (0.1-1.4); ABSOLUTE NEUT (AUTO) 2.8 10^3/uL (1.7-8.2); EOSINOPHILS % (AUTO) 4.8 % (0-6); HEMATOCRIT 30.7 % (37.9-51.0); HEMOGLOBIN 9.8 g/dL (13.5-17.0); LYMPHOCYTES % (AUTO) 15.5 % (13-45); MEAN CORPUSCULAR HEMOGLOBIN 26.1 pg (27.0-33.4); MEAN CORPUSCULAR HGB CONC 31.9 g/dL (32.0-36.0); MEAN CORPUSCULAR VOLUME 82 fl (80-97); MONOCYTES % (AUTO) 12.8 % (3-13); PLATELET COUNT 215 10^3/uL (150-450); RED BLOOD COUNT 3.74 10^6/uL (4.35-5.55); SEGMENTED NEUTROPHILS % (AUTO) 65.9 % (42-78); TOTAL CELLS COUNTED % (AUTO) 100 %; WHITE BLOOD COUNT 4.2 10^3/uL (4.0-10.5)
[2018-02-27 02:06] LABS: ALANINE AMINOTRANSFERASE 22 U/L (21-72); ALBUMIN 3.5 g/dL (3.5-5.0); ALKALINE PHOSPHATASE 75 U/L (38-126); ANION GAP 13 (5-19); ASPARTATE AMINO TRANSFERASE 16 U/L (17-59); BILIRUBIN,DIRECT 0.9 mg/dL (0.0-0.4); BILIRUBIN,TOTAL 1.9 mg/dL (0.2-1.3); BLOOD UREA NITROGEN 37 mg/dL (7-20); CALCIUM 8.9 mg/dL (8.4-10.2); CARBON DIOXIDE 26 mmol/L (22-30); CHLORIDE 107 mmol/L (98-107); GLUCOSE 86 mg/dL (75-110); POTASSIUM 3.8 mmol/L (3.6-5.0); SODIUM 145.6 mmol/L (137-145); TOTAL PROTEIN 7.5 g/dL (6.3-8.2)
[2018-02-27] MEDS ORDERED: FUROSEMIDE INJ/PF 40 MG/4 ML SDV IV ONE (02:49)
[2018-02-27] MEDS ORDERED: TORSEMIDE 20 MG TABLET PO ONE (02:56)
--- NOTE | 2018-02-27 02:56 | ER Document Report ---
ED General - General Chief Complaint: Edema Stated Complaint: TESTICULAR SWELLING Time Seen by Provider: 02/27/18 01:20 Notes: Patient is a 57-year-old male with a past medical history of morbid obesity, congestive heart failure, chronic kidney disease, chronic peripheral vascular disease who presents with complaints of ongoing abdominal and testicular swelling. Patient was hospitalized the end of January for the same, diuresed approximately 10 kg on the left prior to Dr. Leone wanting him to leave. The patient states that he has been taking torsemide as prescribed but does not believe that he has lost any additional weight. He describes a dull, throbbing , constant pain to his entire lower abdomen, testicles and legs due to the amount of edema. He states that he has not having will see Dr. Leone as an outpatient due to transport difficulties from his morbid obesity. He denies any increase in shortness of breath, chest pain, fever or constitutional symptoms. TRAVEL OUTSIDE OF THE [place] IN LAST 30 DAYS: No - Related Data Allergies/Adverse Reactions: No Known Allergies Allergy (Verified 01/31/18 16:08) Past Medical History - General Information source: Patient - Social History Smoking Status: Former Smoker Chew tobacco use (# tins/day): No Frequency of alcohol use: None Drug Abuse: None Lives with: Alone Family History: CAD, COPD, CVA, DM, Hypertension Patient has suicidal ideation: No Patient has homicidal ideation: No - Past Medical History Cardiac Medical History: Reports: Hx Atrial Fibrillation, Hx Congestive Heart Failure, Hx Coronary Artery Disease, Hx Hypercholesterolemia, Hx Hypertension, Hx Peripheral Vascular Disease, Hx Pulmonary Embolism Pulmonary Medical History: Reports: Hx COPD, Hx Sleep Apnea Renal/ Medical History: Reports: Hx Renal Insufficiency. Denies: Hx Peritoneal Dialysis GI Medical History: Reports: Hx Gastritis, Hx Ulcerative Colitis Musculoskeletal Medical History: Reports Hx Arthritis Psychiatric Medical History: Denies: Hx Depression Past Surgical History: Reports: Hx Tonsillectomy, Other - Tooth extraction - Immunizations Hx Diphtheria, Pertussis, Tetanus Vaccination: No Review of Systems - Review of Systems Notes: Constitutional: Negative for fever. HENT: Negative for sore throat. Eyes: Negative for visual changes. Cardiovascular: Negative for chest pain. Respiratory: Negative for shortness of breath. Gastrointestinal: Positive for abdominal discomfort Musculoskeletal: Positive for diffuse bilateral lower extremity edema Skin: Negative for rash. Neurological: Negative for headaches, weakness or numbness. 10 point ROS negative except as marked above and in HPI. Physical Exam - Vital signs Interpretation: Hypertensive Notes: PHYSICAL EXAMINATION: GENERAL: Chronically ill in appearance, morbidly obese, no acute distress HEAD: Atraumatic, normocephalic. EYES: Pupils equal round and reactive to light, extraocular movements intact, sclera anicteric, conjunctiva are normal. ENT: nares patent, oropharynx clear without exudates. Moist mucous membranes. NECK: Normal range of motion, supple without lymphadenopathy LUNGS: Breath sounds clear to auscultation bilaterally and equal. No wheezes rales or rhonchi. HEART: Irregular regular rhythm without murmurs ABDOMEN: Morbidly obese abdomen, diffuse abdominal wall edema. No focal tenderness, rebound or guarding. EXTREMITIES: Unna boots present to the bilateral lower extremities. 4+ pitting edema up to the mid thigh bilaterally. : Marketed testicular edema, penis unable to be visualized due to invagination NEUROLOGICAL: No focal neurological deficits. Moves all extremities spontaneously and on command. PSYCH: Normal mood, normal affect. SKIN: Warm, Dry, normal turgor, Course - Re-evaluation Re-evalutation: 02/27/18 03:36 Patient presents with ongoing, unchanged morbid obesity, diffuse abdominal edema , bilateral lower extremity edema, difficulty with ambulation secondary to fluid retention. Patient's vitals are unchanged from his time of discharge showing hypertension, borderline hypoxia on 2 L by nasal cannula. The patient denies any chest pain, increased shortness of breath, and his chest x-ray as well as BNP are unchanged from prior. I did discuss with Dr. Edwards who is on -call for Dr. Leone for consideration of hospitalization given patient's ongoing difficulty with mobility secondary to his morbid obesity but also secondary to his marketed lower extremity and testicular edema. Dr. Edwards does not feel the patient is to be hospitalized stating instead that the patient should have his torsemide double from 20 mg daily to 20 mg twice daily. He has requested the patient follow up in clinic with Dr. Leone and does not feel he needs any inpatient criteria at this point. The patient does not agree with this assessment, would like to be admitted but I have informed him that ultimately the inpatient physician does not believe that he needs inpatient criteria and that his condition has effectively been unchanged since 08 February. At this time will discharge with return precautions and follow-up recommendations. Verbal discharge instructions given a the bedside and opportunity for questions given. Medication warnings reviewed. Patient is in agreement with this plan and has verbalized understanding of return precautions and the need for primary care follow-up in the next 24-72 hours. - Laboratory Result Diagrams: 02/27/18 01:30 02/27/18 01:30 Laboratory results interpreted by me: 02/27/18 02/27/18 02/27/18 01:30 01:30 01:30 RBC 3.74 L Hgb 9.8 L Hct 30.7 L MCH 26.1 L MCHC 31.9 L RDW 19.0 H Sodium 145.6 H BUN 37 H Creatinine 1.64 H Est GFR ( Amer) 53 L Est GFR (Non-Af Amer) 44 L Total Bilirubin 1.9 H Direct Bilirubin 0.9 H AST 16 L NT-Pro-B Natriuret Pep 68416 H - Diagnostic Test Radiology reviewed: Image reviewed, Reports reviewed Radiology results interpreted by me: 02/27/18 03:36 Chest x-ray: Vascular congestion and cardiomegaly unchanged from prior assessment Discharge - Discharge Clinical Impression: Edema of both legs, Anasarca, Scrotal edema CHF (congestive heart failure) Qualifiers: Heart failure type: unspecified Heart failure chronicity: chronic Qualified Code(s): I50.9 - Heart failure, unspecified Condition: Stable Disposition: HOME, SELF-CARE Additional Instructions: Your weight has not changed from the time of discharge and your labs are effectively unchanged. You need to continue to restrict her fluid intake and salt intake. I have discussed with the doctor habilitation assistant for Dr. Leone who does not feel that you need to be admitted tonight. They have recommended that we double your torsemide to a total of 40 mg daily in the to see Dr. Leone in the office on Wednesday. Please return if you have chest pain, worsening of your swelling, vomiting, or any other symptoms that are worrisome to you. Prescriptions: Torsemide [Demadex 20 mg Tablet] 20 mg PO BID #10 tablet Referrals: ZOYA LEONE MD [Primary Care Provider] - Follow up as needed
[2018-02-27] MEDS ORDERED: TORSEMIDE 20 MG TABLET ONE (04:03)
--- NOTE | 2018-02-27 04:41 | RADIOLOGY REPORT (SQ) ---
EXAM DESCRIPTION: XR CHEST 1 VIEW COMPLETED DATE/TME: 02/27/2018 01:26 CLINICAL HISTORY: 57 years Male, sob COMPARISON: 7.23.18 NUMBER OF VIEWS/TECHNIQUE: 1/AP FINDINGS: Mild/moderate mixed interstitial and airspace opacity, moderate cardiac enlargement. Lung volume, clear parenchyma, normal cardiac silhouette, and intact bony thorax. IMPRESSION: Mild mixed interstitial and airpace opacities. Differential diagnosis includes CHF/ pulmonary edema, pneumonia, and chronic interstitial lung disease/fibrosis.
== END 2018-02-27 05:35 | disposition home or self-care (01) ==
LOC: ER 00:24
DX: R60.1 Generalized edema (principal); N50.89 Other specified disorders of the male genital organs; I50.9 Heart failure, unspecified
CPT/HCPCS: 36415; 71045; 80053; 83880; 85025; 99284

== ENCOUNTER 2018-03-27 17:08 | Inpatient (IN) | payer OTHER, MEDICARE, MEDICAID ==
--- NOTE | 2018-03-27 18:44 | ER Document Report ---
ED Medical Screen (RME) - General Chief Complaint: Testicular Pain Stated Complaint: SCROTUM PAIN Time Seen by Provider: 03/27/18 18:33 Mode of Arrival: Ambulatory Information source: Patient Notes: Patient presented to the emergency room complaining of scrotal swelling and pedal edema. He has CHF and he has been gaining weight recently. He said his doctor Dr. Leone told him to come to the hospital whenever he started feeling like this. Patient denies any abdominal pain, nausea, vomiting or diarrhea. I have greeted and performed a rapid initial assessment of this patient. A comprehensive ED assessment and evaluation of the patient, analysis of test results and completion of the medical decision making process will be conducted by additional ED providers. TRAVEL OUTSIDE OF THE [place] IN LAST 30 DAYS: No - Related Data Allergies/Adverse Reactions: No Known Allergies Allergy (Verified 01/31/18 16:08) Past Medical History - Past Medical History Cardiac Medical History: Reports: Hx Atrial Fibrillation, Hx Congestive Heart Failure, Hx Coronary Artery Disease, Hx Hypercholesterolemia, Hx Hypertension, Hx Peripheral Vascular Disease, Hx Pulmonary Embolism Pulmonary Medical History: Reports: Hx COPD, Hx Sleep Apnea Renal/ Medical History: Reports: Hx Renal Insufficiency. Denies: Hx Peritoneal Dialysis GI Medical History: Reports: Hx Gastritis, Hx Ulcerative Colitis Musculoskeltal Medical History: Reports Hx Arthritis Psychiatric Medical History: Denies: Hx Depression Past Surgical History: Reports: Hx Tonsillectomy, Other - Tooth extraction - Immunizations Hx Diphtheria, Pertussis, Tetanus Vaccination: No History of Influenza Vaccine for 04/2017 - 09/2017 Season: Yes Influenza Administration Date for 04/2017 - 09/2017 Season: 04/27/17 Physical Exam - Vital signs Vitals: Temp Pulse Resp BP Pulse Ox 97.7 F 111 H 20 136/100 H 92 03/27/18 17:39 03/27/18 17:39 03/27/18 17:39 03/27/18 17:39 03/27/18 17:39 Course - Vital Signs Vital signs: Temp Pulse Resp BP Pulse Ox 97.7 F 111 H 20 136/100 H 92 03/27/18 17:39 03/27/18 17:39 03/27/18 17:39 03/27/18 17:39 03/27/18 17:39 Doctor's Discharge - Discharge Referrals: ZOYA LEONE MD [Primary Care Provider] - Follow up as needed
[2018-03-27 19:20] LABS: ABSOLUTE EOSINOPHILS # (AUTO) 0.3 10^3/uL (0.0-0.6); ABSOLUTE LYMPHOCYTES (AUTO) 0.7 10^3/uL (0.5-4.7); ABSOLUTE MONOCYTES (AUTO) 0.6 10^3/uL (0.1-1.4); ABSOLUTE NEUT (AUTO) 3.3 10^3/uL (1.7-8.2); BASOPHILS % (AUTO) 0.9 % (0-2); EOSINOPHILS % (AUTO) 5.2 % (0-6); HEMATOCRIT 32.4 % (37.9-51.0); HEMOGLOBIN 10.6 g/dL (13.5-17.0); MEAN CORPUSCULAR HEMOGLOBIN 26.3 pg (27.0-33.4); MEAN CORPUSCULAR HGB CONC 32.6 g/dL (32.0-36.0); MEAN CORPUSCULAR VOLUME 81 fl (80-97); MONOCYTES % (AUTO) 12.6 % (3-13); PLATELET COUNT 200 10^3/uL (150-450); RED BLOOD COUNT 4.02 10^6/uL (4.35-5.55); RED CELL DISTRIBUTION WIDTH 17.3 % (11.5-14.0); SEGMENTED NEUTROPHILS % (AUTO) 67.3 % (42-78); TOTAL CELLS COUNTED % (AUTO) 100 %
[2018-03-27 19:28] LABS: PROTHROMBIN TIME 19.8 SEC (11.4-15.4)
[2018-03-27 20:04] LABS: ALANINE AMINOTRANSFERASE 19 U/L (21-72); ALBUMIN 3.7 g/dL (3.5-5.0); ALKALINE PHOSPHATASE 74 U/L (38-126); ANION GAP 11 (5-19); ASPARTATE AMINO TRANSFERASE 18 U/L (17-59); BILIRUBIN,DIRECT 1.6 mg/dL (0.0-0.4); BILIRUBIN,TOTAL 3.5 mg/dL (0.2-1.3); BLOOD UREA NITROGEN 27 mg/dL (7-20); CALCIUM 9.3 mg/dL (8.4-10.2); CARBON DIOXIDE 25 mmol/L (22-30); CHLORIDE 104 mmol/L (98-107); CREATINE KINASE 148 U/L (55-170); GLUCOSE 77 mg/dL (75-110); POTASSIUM 3.1 mmol/L (3.6-5.0); SODIUM 140.1 mmol/L (137-145)
[2018-03-27 20:16] LABS: CREATINE KINASE MB 0.89 ng/mL (<4.55)
--- NOTE | 2018-03-27 20:17 | RADIOLOGY REPORT (SQ) ---
EXAM DESCRIPTION: CHEST SINGLE VIEW COMPLETED DATE/TIME: 03/27/2018 8:02 pm REASON FOR STUDY: sob COMPARISON: 03 1403/14/2018 NUMBER OF VIEWS: One view. TECHNIQUE: Single frontal radiographic view of the chest acquired. LIMITATIONS: None. FINDINGS: LUNGS AND PLEURA: No opacities, masses or pneumothorax. No pleural effusion. MEDIASTINUM AND HILAR STRUCTURES: No masses or contour abnormality. HEART AND VASCULATURE: Cardiac enlargement. Vascular congestion. BONES: No acute findings. HARDWARE: None in the chest. OTHER: No other significant finding. IMPRESSION: CARDIAC ENLARGEMENT. VASCULAR CONGESTION. TECHNICAL DOCUMENTATION: JOB ID: [id number] [employer]- All Rights Reserved Reading location - IP/workstation name: [email or web address]
[2018-03-27 20:25] LABS: TROPONIN I 0.041 ng/mL
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
[2018-03-27] MEDS ORDERED: POTASSIUM CHLORIDE 10 MEQ CAPSULE.ER PO ONE (23:18)
[2018-03-27] MEDS ORDERED: FUROSEMIDE INJ/PF 40 MG/4 ML SDV IV ONE (23:19)
[2018-03-28] MEDS ORDERED: OXYCODONE-ACETAMINOPHEN 5-325 MG TABLET PO ONE (04:41)
[2018-03-28] MEDS ORDERED: POTASSIUM CHLORIDE 10 MEQ CAPSULE.ER PO ONE (05:16)
[2018-03-28] MEDS ORDERED: FUROSEMIDE INJ/PF 40 MG/4 ML SDV IV ONE (05:16)
--- NOTE | 2018-03-28 07:46 | RADIOLOGY REPORT (SQ) ---
US SCROTUM HISTORY: Scrotal swelling. COMPARISON: None. TECHNIQUE: Barrow-scale, color Doppler, and spectral Doppler ultrasound images of the scrotum were obtained. FINDINGS: RIGHT: Normal size and echogenicity of the testis, measuring 5.0 x 2.7 x 3.0 cm. Positive color Doppler flow is present. No focal intratesticular mass is seen. The epididymis also has increased size and echogenicity, and measures 4.2 x 0.9 x 1.3 cm. LEFT: Normal size and echogenicity of the testis, measuring 4.3 x 2.2 x 3.0 cm. Positive color Doppler flow is present. No focal intratesticular mass is seen. The epididymis also has normal size and echogenicity, and measures 2.5 x 1.1 x 1.1 cm. OTHER: Diffuse skin thickening of the scrotum. Large bilateral hydroceles. IMPRESSION: No evidence of testicular torsion. Asymmetrically enlarged right epididymis which may represent epididymitis in the correct clinical setting. Large bilateral hydroceles. Diffuse scrotal skin thickening.
[2018-03-28] MEDS ORDERED: ONDANSETRON HCL INJ/PF 4 MG/2 ML SDV IV PRN (12:13)
[2018-03-28] MEDS ORDERED: IPRATROPIUM/ALBUTEROL 0.5-2.5 MG/3 ML AMPUL NEB PRN (12:13)
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
[2018-03-28 16:07] LABS: ANION GAP 7 (5-19); BLOOD UREA NITROGEN 24 mg/dL (7-20); CARBON DIOXIDE 24 mmol/L (22-30); CHLORIDE 109 mmol/L (98-107); GLUCOSE 100 mg/dL (75-110); POTASSIUM 3.7 mmol/L (3.6-5.0)
[2018-03-28] MEDS: METOPROLOL TARTRATE 25 MG TABLET PO SCH ×2 (20:23→22:09)
[2018-03-28] MEDS: APIXABAN 5 MG TABLET PO SCH (20:24)
[2018-03-28] MEDS: POTASSIUM CHLORIDE 10 MEQ CAPSULE.ER PO SCH (22:10)
[2018-03-28] MEDS: ACETAMINOPHEN 325 MG TABLET PO PRN (22:10)
[2018-03-28] MEDS: FUROSEMIDE INJ/PF 100 MG/10 ML SDV IV SCH (22:11)
[2018-03-29 05:35] LABS: ABSOLUTE EOSINOPHILS # (AUTO) 0.3 10^3/uL (0.0-0.6); ABSOLUTE LYMPHOCYTES (AUTO) 0.7 10^3/uL (0.5-4.7); ABSOLUTE MONOCYTES (AUTO) 0.5 10^3/uL (0.1-1.4); ABSOLUTE NEUT (AUTO) 2.1 10^3/uL (1.7-8.2); BASOPHILS % (AUTO) 0.8 % (0-2); EOSINOPHILS % (AUTO) 8.8 % (0-6); HEMATOCRIT 30.8 % (37.9-51.0); HEMOGLOBIN 9.9 g/dL (13.5-17.0); LYMPHOCYTES % (AUTO) 18.2 % (13-45); MEAN CORPUSCULAR HEMOGLOBIN 25.9 pg (27.0-33.4); MEAN CORPUSCULAR HGB CONC 32.2 g/dL (32.0-36.0); MEAN CORPUSCULAR VOLUME 81 fl (80-97); MONOCYTES % (AUTO) 13.3 % (3-13); PLATELET COUNT 189 10^3/uL (150-450); RED BLOOD COUNT 3.83 10^6/uL (4.35-5.55); RED CELL DISTRIBUTION WIDTH 17.2 % (11.5-14.0); SEGMENTED NEUTROPHILS % (AUTO) 58.9 % (42-78); TOTAL CELLS COUNTED % (AUTO) 100 %; WHITE BLOOD COUNT 3.6 10^3/uL (4.0-10.5)
[2018-03-29 06:02] LABS: ANION GAP 7 (5-19); BLOOD UREA NITROGEN 24 mg/dL (7-20); CALCIUM 8.9 mg/dL (8.4-10.2); CARBON DIOXIDE 27 mmol/L (22-30); CHLORIDE 107 mmol/L (98-107); GLUCOSE 105 mg/dL (75-110); PHOSPHORUS 4.3 mg/dL (2.5-4.5); POTASSIUM 3.9 mmol/L (3.6-5.0); SODIUM 141.4 mmol/L (137-145)
[2018-03-29] MEDS: METOPROLOL TARTRATE 25 MG TABLET PO SCH ×2 (09:57→22:03)
[2018-03-29] MEDS: FUROSEMIDE INJ/PF 100 MG/10 ML SDV IV SCH ×2 (09:58→22:00)
[2018-03-29] MEDS: APIXABAN 5 MG TABLET PO SCH ×2 (09:59→17:26)
[2018-03-29] MEDS: POTASSIUM CHLORIDE 10 MEQ CAPSULE.ER PO SCH ×2 (09:59→22:03)
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
--- NOTE | 2018-03-29 15:29 | EKG REPORT ---
SEVERITY:- ABNORMAL ECG - ATRIAL FIBRILLATION INCOMPLETE RIGHT BUNDLE BRANCH BLOCK INFERIOR INFARCT, OLD LATERAL INFARCT, AGE INDETERMINATE ANTERIOR INFARCT, AGE INDETERMINATE : Confirmed by: Karen Worthy MD 29-Mar-2018 15:28:51
[2018-03-30 05:29] LABS: ABSOLUTE EOSINOPHILS # (AUTO) 0.4 10^3/uL (0.0-0.6); ABSOLUTE LYMPHOCYTES (AUTO) 0.6 10^3/uL (0.5-4.7); ABSOLUTE MONOCYTES (AUTO) 0.4 10^3/uL (0.1-1.4); ABSOLUTE NEUT (AUTO) 1.9 10^3/uL (1.7-8.2); BASOPHILS % (AUTO) 0.8 % (0-2); EOSINOPHILS % (AUTO) 10.8 % (0-6); HEMOGLOBIN 10.1 g/dL (13.5-17.0); LYMPHOCYTES % (AUTO) 19.1 % (13-45); MEAN CORPUSCULAR HEMOGLOBIN 26.1 pg (27.0-33.4); MEAN CORPUSCULAR HGB CONC 32.6 g/dL (32.0-36.0); MEAN CORPUSCULAR VOLUME 80 fl (80-97); MONOCYTES % (AUTO) 11.9 % (3-13); PLATELET COUNT 193 10^3/uL (150-450); RED BLOOD COUNT 3.88 10^6/uL (4.35-5.55); SEGMENTED NEUTROPHILS % (AUTO) 57.4 % (42-78); TOTAL CELLS COUNTED % (AUTO) 100 %; WHITE BLOOD COUNT 3.3 10^3/uL (4.0-10.5)
[2018-03-30 05:58] LABS: ANION GAP 8 (5-19); BLOOD UREA NITROGEN 23 mg/dL (7-20); CALCIUM 8.9 mg/dL (8.4-10.2); CARBON DIOXIDE 29 mmol/L (22-30); CHLORIDE 105 mmol/L (98-107); GLUCOSE 84 mg/dL (75-110); POTASSIUM 4.2 mmol/L (3.6-5.0); SODIUM 141.6 mmol/L (137-145)
[2018-03-30] MEDS: FUROSEMIDE INJ/PF 100 MG/10 ML SDV IV SCH ×2 (10:04→22:11)
[2018-03-30] MEDS: POTASSIUM CHLORIDE 10 MEQ CAPSULE.ER PO SCH ×2 (10:04→22:11)
[2018-03-30] MEDS: METOPROLOL TARTRATE 25 MG TABLET PO SCH ×2 (10:05→22:10)
[2018-03-30] MEDS: APIXABAN 5 MG TABLET PO SCH ×2 (10:05→18:00)
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
[2018-03-31 06:01] LABS: ABSOLUTE EOSINOPHILS # (AUTO) 0.4 10^3/uL (0.0-0.6); ABSOLUTE LYMPHOCYTES (AUTO) 0.6 10^3/uL (0.5-4.7); ABSOLUTE MONOCYTES (AUTO) 0.4 10^3/uL (0.1-1.4); ABSOLUTE NEUT (AUTO) 1.5 10^3/uL (1.7-8.2); EOSINOPHILS % (AUTO) 12.3 % (0-6); HEMATOCRIT 30.5 % (37.9-51.0); LYMPHOCYTES % (AUTO) 20.9 % (13-45); MEAN CORPUSCULAR HEMOGLOBIN 26.6 pg (27.0-33.4); MEAN CORPUSCULAR HGB CONC 32.6 g/dL (32.0-36.0); MEAN CORPUSCULAR VOLUME 82 fl (80-97); MONOCYTES % (AUTO) 12.7 % (3-13); PLATELET COUNT 180 10^3/uL (150-450); RED BLOOD COUNT 3.75 10^6/uL (4.35-5.55); RED CELL DISTRIBUTION WIDTH 17.4 % (11.5-14.0); SEGMENTED NEUTROPHILS % (AUTO) 53.1 % (42-78); TOTAL CELLS COUNTED % (AUTO) 100 %; WHITE BLOOD COUNT 2.9 10^3/uL (4.0-10.5)
[2018-03-31 06:24] LABS: ANION GAP 5 (5-19); BLOOD UREA NITROGEN 24 mg/dL (7-20); CALCIUM 8.9 mg/dL (8.4-10.2); CARBON DIOXIDE 31 mmol/L (22-30); CHLORIDE 105 mmol/L (98-107); GLUCOSE 86 mg/dL (75-110); POTASSIUM 4.8 mmol/L (3.6-5.0); SODIUM 140.6 mmol/L (137-145)
[2018-03-31] MEDS: FUROSEMIDE INJ/PF 100 MG/10 ML SDV IV SCH ×2 (09:30→21:55)
[2018-03-31] MEDS: METOPROLOL TARTRATE 25 MG TABLET PO SCH ×2 (09:30→21:57)
[2018-03-31] MEDS: APIXABAN 5 MG TABLET PO SCH ×2 (09:31→18:28)
[2018-03-31] MEDS: POTASSIUM CHLORIDE 10 MEQ CAPSULE.ER PO SCH ×2 (09:32→21:55)
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
[2018-04-01] MEDS: POTASSIUM CHLORIDE 10 MEQ CAPSULE.ER PO SCH ×2 (10:18→22:08)
[2018-04-01] MEDS: FUROSEMIDE INJ/PF 100 MG/10 ML SDV IV SCH ×2 (10:18→22:07)
[2018-04-01] MEDS: APIXABAN 5 MG TABLET PO SCH ×2 (10:18→19:22)
[2018-04-01] MEDS: METOPROLOL TARTRATE 25 MG TABLET PO SCH ×2 (10:18→22:07)
--- NOTE | 2018-04-01 21:18 | PDOC PROGRESS REPORT ---
Subjective Progress Note for:: 04/01/18 Subjective:: Patient is seen by the bedside he complained of the size of the potassium pill, he is presently on 40 M EQ of potassium by mouth daily but he usually takes 10meq four tablets daily, he prefers just a single 40 M EQ tablet Reason For Visit: CHF/ANASARCA Physical Exam Vital Signs: Temp Pulse Resp BP Pulse Ox 98.4 F 82 18 106/71 100 04/01/18 19:16 04/01/18 19:16 04/01/18 19:16 04/01/18 19:16 04/01/18 19:16 Intake & Output 03/31/18 04/01/18 04/02/18 06:59 06:59 06:59 Intake Total 2562 2013 1200 Balance 2562 2013 1200 Weight 156.4 kg 156.4 kg General appearance: PRESENT: no acute distress Eye exam: PRESENT: PERRLA Cardiovascular exam: PRESENT: +S1, +S2 GI/Abdominal exam: PRESENT: soft Neurological exam: PRESENT: alert Results Laboratory Results: 03/31/18 05:27 03/31/18 05:27 Impressions: Chest X-Ray 03/27/18 18:33 IMPRESSION: CARDIAC ENLARGEMENT. VASCULAR CONGESTION. Scrotum Ultrasound 03/27/18 18:34 IMPRESSION: No evidence of testicular torsion. Asymmetrically enlarged right epididymis which may represent epididymitis in the correct clinical setting. Large bilateral hydroceles. Diffuse scrotal skin thickening. Assessment & Plan - Diagnosis (1) Anasarca Is this a current diagnosis for this admission?: Yes (2) Severe pulmonary arterial systolic hypertension Is this a current diagnosis for this admission?: Yes (3) Acute and chronic respiratory failure with hypercapnia Is this a current diagnosis for this admission?: Yes (4) Nephrotic syndrome Is this a current diagnosis for this admission?: Yes
[2018-04-02] MEDS: METOPROLOL TARTRATE 25 MG TABLET PO SCH ×2 (09:13→22:01)
[2018-04-02] MEDS: POTASSIUM CHLORIDE 10 MEQ CAPSULE.ER PO SCH ×2 (09:13→21:59)
[2018-04-02] MEDS: APIXABAN 5 MG TABLET PO SCH ×2 (09:13→17:09)
[2018-04-02] MEDS: FUROSEMIDE INJ/PF 100 MG/10 ML SDV IV SCH ×3 (09:14→22:13)
--- NOTE | 2018-04-02 18:07 | PDOC PROGRESS REPORT ---
Subjective Progress Note for:: 04/02/18 Subjective:: Patient seen by the bedside, he has ventral hernia, he is at high risk for surgery. Patient needs a hospital bed on discharge home, he has chronic diastolic heart failure, severe morbid obesity, if we need a hospital bed for cardiac position, to adjust head of the bed. Reason For Visit: CHF/ANASARCA Physical Exam Vital Signs: Temp Pulse Resp BP Pulse Ox 97.7 F 73 22 H 112/65 98 04/02/18 12:00 04/02/18 14:00 04/02/18 15:30 04/02/18 16:00 04/02/18 15:30 Intake & Output 04/01/18 04/02/18 04/03/18 06:59 06:59 06:59 Intake Total 2013 2724 Balance 2013 2724 Weight 156.4 kg 157.2 kg General appearance: PRESENT: no acute distress Respiratory exam: PRESENT: clear to auscultation dell Cardiovascular exam: PRESENT: +S1, +S2 GI/Abdominal exam: PRESENT: soft Results Laboratory Results: 03/31/18 05:27 03/31/18 05:27 Impressions: Chest X-Ray 03/27/18 18:33 IMPRESSION: CARDIAC ENLARGEMENT. VASCULAR CONGESTION. Scrotum Ultrasound 03/27/18 18:34 IMPRESSION: No evidence of testicular torsion. Asymmetrically enlarged right epididymis which may represent epididymitis in the correct clinical setting. Large bilateral hydroceles. Diffuse scrotal skin thickening. Assessment & Plan - Diagnosis (1) Anasarca Is this a current diagnosis for this admission?: Yes (2) Severe pulmonary arterial systolic hypertension Is this a current diagnosis for this admission?: Yes (3) Acute and chronic respiratory failure with hypercapnia Is this a current diagnosis for this admission?: Yes (4) Nephrotic syndrome Is this a current diagnosis for this admission?: Yes
[2018-04-03] MEDS: APIXABAN 5 MG TABLET PO SCH ×2 (10:07→17:16)
[2018-04-03] MEDS: POTASSIUM CHLORIDE 10 MEQ CAPSULE.ER PO SCH ×2 (10:27→21:20)
[2018-04-03] MEDS: FUROSEMIDE INJ/PF 100 MG/10 ML SDV IV SCH ×2 (10:28→21:29)
[2018-04-03] MEDS: METOPROLOL TARTRATE 25 MG TABLET PO SCH ×2 (10:28→21:29)
--- NOTE | 2018-04-03 19:27 | PDOC PROGRESS REPORT ---
Subjective Progress Note for:: 04/03/18 Subjective:: Patient was seen by the bedside, the blood pressure is quite low today Reason For Visit: CHF/ANASARCA Physical Exam Vital Signs: Temp Pulse Resp BP Pulse Ox 98.1 F 86 14 112/78 99 04/03/18 12:00 04/03/18 12:00 04/03/18 12:00 04/03/18 12:00 04/03/18 08:10 Intake & Output 04/02/18 04/03/18 04/04/18 06:59 06:59 06:59 Intake Total 2725 1260 Balance 2725 1260 Weight 157.2 kg 157.2 kg General appearance: PRESENT: no acute distress Eye exam: PRESENT: PERRLA Respiratory exam: PRESENT: clear to auscultation dell Cardiovascular exam: PRESENT: +S1, +S2 GI/Abdominal exam: PRESENT: soft Neurological exam: PRESENT: alert Results Laboratory Results: 03/31/18 05:27 03/31/18 05:27 Impressions: Chest X-Ray 03/27/18 18:33 IMPRESSION: CARDIAC ENLARGEMENT. VASCULAR CONGESTION. Scrotum Ultrasound 03/27/18 18:34 IMPRESSION: No evidence of testicular torsion. Asymmetrically enlarged right epididymis which may represent epididymitis in the correct clinical setting. Large bilateral hydroceles. Diffuse scrotal skin thickening. Assessment & Plan - Diagnosis (1) Anasarca Is this a current diagnosis for this admission?: Yes (2) Severe pulmonary arterial systolic hypertension Is this a current diagnosis for this admission?: Yes (3) Acute and chronic respiratory failure with hypercapnia Is this a current diagnosis for this admission?: Yes (4) Nephrotic syndrome Is this a current diagnosis for this admission?: Yes
[2018-04-04] MEDS: POTASSIUM CHLORIDE 10 MEQ CAPSULE.ER PO SCH ×2 (10:02→22:10)
[2018-04-04] MEDS: METOPROLOL TARTRATE 25 MG TABLET PO SCH ×2 (10:03→22:12)
[2018-04-04] MEDS: APIXABAN 5 MG TABLET PO SCH ×2 (10:03→17:19)
[2018-04-04] MEDS: FUROSEMIDE INJ/PF 100 MG/10 ML SDV IV SCH ×2 (10:04→22:11)
[2018-04-04 17:50] LABS: ABSOLUTE EOSINOPHILS # (AUTO) 0.2 10^3/uL (0.0-0.6); ABSOLUTE LYMPHOCYTES (AUTO) 0.5 10^3/uL (0.5-4.7); ABSOLUTE MONOCYTES (AUTO) 0.4 10^3/uL (0.1-1.4); ABSOLUTE NEUT (AUTO) 2.3 10^3/uL (1.7-8.2); BASOPHILS % (AUTO) 0.2 % (0-2); HEMATOCRIT 30.2 % (37.9-51.0); HEMOGLOBIN 9.8 g/dL (13.5-17.0); MEAN CORPUSCULAR HEMOGLOBIN 25.8 pg (27.0-33.4); MEAN CORPUSCULAR HGB CONC 32.3 g/dL (32.0-36.0); MEAN CORPUSCULAR VOLUME 80 fl (80-97); MONOCYTES % (AUTO) 10.7 % (3-13); PLATELET COUNT 191 10^3/uL (150-450); RED BLOOD COUNT 3.78 10^6/uL (4.35-5.55); RED CELL DISTRIBUTION WIDTH 17.1 % (11.5-14.0); SEGMENTED NEUTROPHILS % (AUTO) 67.1 % (42-78); TOTAL CELLS COUNTED % (AUTO) 100 %; WHITE BLOOD COUNT 3.4 10^3/uL (4.0-10.5)
[2018-04-04 18:07] LABS: ALANINE AMINOTRANSFERASE 16 U/L (21-72); ALBUMIN 3.3 g/dL (3.5-5.0); ALKALINE PHOSPHATASE 64 U/L (38-126); ANION GAP 6 (5-19); ASPARTATE AMINO TRANSFERASE 17 U/L (17-59); BILIRUBIN,DIRECT 0.7 mg/dL (0.0-0.4); BILIRUBIN,TOTAL 0.9 mg/dL (0.2-1.3); BLOOD UREA NITROGEN 38 mg/dL (7-20); CALCIUM 8.8 mg/dL (8.4-10.2); CARBON DIOXIDE 28 mmol/L (22-30); CHLORIDE 103 mmol/L (98-107); GLUCOSE 139 mg/dL (75-110); POTASSIUM 4.9 mmol/L (3.6-5.0); SODIUM 136.7 mmol/L (137-145); TOTAL PROTEIN 7.2 g/dL (6.3-8.2)
[2018-04-04] MEDS: ACETAMINOPHEN 325 MG TABLET PO PRN (20:56)
--- NOTE | 2018-04-04 21:02 | PDOC PROGRESS REPORT ---
Subjective Progress Note for:: 04/04/18 Subjective:: Patient condition about the same Reason For Visit: CHF/ANASARCA Physical Exam Vital Signs: Temp Pulse Resp BP Pulse Ox 97.7 F 42 L 14 103/50 L 96 04/04/18 19:36 04/04/18 19:36 04/04/18 19:36 04/04/18 19:36 04/04/18 19:36 Intake & Output 04/03/18 04/04/18 04/05/18 06:59 06:59 06:59 Intake Total 1260 960 670 Balance 1260 960 670 Weight 157.2 kg 159 kg General appearance: PRESENT: no acute distress Eye exam: PRESENT: PERRLA Respiratory exam: PRESENT: clear to auscultation dell Cardiovascular exam: PRESENT: +S1, +S2 Neurological exam: PRESENT: alert Results Laboratory Results: 04/04/18 17:10 04/04/18 17:10 04/04/18 04/04/18 17:10 17:10 WBC 3.4 L RBC 3.78 L Hgb 9.8 L Hct 30.2 L MCV 80 MCH 25.8 L MCHC 32.3 RDW 17.1 H Plt Count 191 Seg Neutrophils % 67.1 Lymphocytes % 16.0 Monocytes % 10.7 Eosinophils % 6.0 Basophils % 0.2 Absolute Neutrophils 2.3 Absolute Lymphocytes 0.5 Absolute Monocytes 0.4 Absolute Eosinophils 0.2 Absolute Basophils 0.0 Sodium 136.7 L Potassium 4.9 Chloride 103 Carbon Dioxide 28 Anion Gap 6 BUN 38 H Creatinine 1.52 H Est GFR ( Amer) 58 L Est GFR (Non-Af Amer) 48 L Glucose 139 H Calcium 8.8 Magnesium 2.1 Total Bilirubin 0.9 AST 17 ALT 16 L Alkaline Phosphatase 64 Total Protein 7.2 Albumin 3.3 L Impressions: Chest X-Ray 03/27/18 18:33 IMPRESSION: CARDIAC ENLARGEMENT. VASCULAR CONGESTION. Scrotum Ultrasound 03/27/18 18:34 IMPRESSION: No evidence of testicular torsion. Asymmetrically enlarged right epididymis which may represent epididymitis in the correct clinical setting. Large bilateral hydroceles. Diffuse scrotal skin thickening. Assessment & Plan - Diagnosis (1) Anasarca Is this a current diagnosis for this admission?: Yes (2) Severe pulmonary arterial systolic hypertension Is this a current diagnosis for this admission?: Yes (3) Acute and chronic respiratory failure with hypercapnia Is this a current diagnosis for this admission?: Yes (4) Nephrotic syndrome Is this a current diagnosis for this admission?: Yes
[2018-04-05] MEDS: POTASSIUM CHLORIDE 10 MEQ CAPSULE.ER PO SCH ×2 (10:12→21:15)
[2018-04-05] MEDS: METOPROLOL TARTRATE 25 MG TABLET PO SCH ×2 (10:39→21:57)
[2018-04-05] MEDS: APIXABAN 5 MG TABLET PO SCH ×2 (10:39→17:27)
[2018-04-05] MEDS: FUROSEMIDE INJ/PF 100 MG/10 ML SDV IV SCH ×2 (10:39→21:53)
--- NOTE | 2018-04-05 20:50 | PDOC CONSULTATION ---
Consultation Consult Date: 04/05/18 Consult reason:: incarcerated ventral hernia History of Present Illness Admission Date/PCP: 03/28/18 08:31 ZOYA LEONE MD Patient complains of: midabdominal wall lump with pain History of Present Illness: ELEONORA SHEFFIELD is a 57 year old male with morbid obesity, bedridden, with atrial fibrillation on Eliquis, COPD, sleep apnea, respiratory failure, nephrotic syndrome, and a painful midabdominal lump as per ventral hernia. The patient reports no abdominal symptoms, no nausea or vomiting. Past Medical History Cardiac Medical History: Reports: Atrial Fibrillation, Congestive Heart Failure , Coronary Artery Disease, Hyperlipidema, Hypertension, Peripheral Vascular Disease, Pulmonary Embolism, Other - Severe pulmonary hypertension with estimated pressures of 80 mmHg Pulmonary Medical History: Reports: Chronic Obstructive Pulmonary Disease (COPD) , Sleep Apnea GI Medical History: Reports: Ulcerative Colitis Musculoskeltal Medical History: Reports: Arthritis Skin Medical History: Reports: Other - Chronic stasis dermatitis Psychiatric Medical History: Denies: Depression Past Surgical History Past Surgical History: Reports: Tonsillectomy, Other - Tooth extraction Social History Lives with: Alone Smoking Status: Former Smoker Frequency of Alcohol Use: None Hx Recreational Drug Use: No Drugs: None Hx Prescription Drug Abuse: No - Advance Directive Resuscitation Status: Full Code Family History Family History: CAD, COPD, CVA, DM, Hypertension Parental Family History Reviewed: No Children Family History Reviewed: No Sibling(s) Family History Reviewed.: No Medication/Allergy Home Medications: Apixaban [Eliquis 2.5 mg Tablet] 2.5 mg PO Q12 03/28/18 Metoprolol Tartrate [Lopressor 25 mg Tablet] 25 mg PO DAILY 03/28/18 Simvastatin [Zocor 10 mg Tablet] 10 mg PO QHS 03/28/18 Sodium Chloride [[place] Nasal [place] 44 ml Bottle] 2 spray NASL Q12 03/28/18 Torsemide [Demadex 20 mg Tablet] 20 mg PO Q12 03/28/18 Allergies/Adverse Reactions: No Known Allergies Allergy (Verified 01/31/18 16:08) Physical Exam Vital Signs: Temp Pulse Resp BP Pulse Ox 97.6 F 122 H 18 104/72 100 04/05/18 16:31 04/05/18 16:31 04/05/18 16:31 04/05/18 16:31 04/05/18 16:31 Intake & Output 04/04/18 04/05/18 04/06/18 06:59 06:59 06:59 Intake Total 960 1448 892 Balance 960 1448 892 Weight 159 kg 158 kg General appearance: PRESENT: no acute distress Head exam: PRESENT: atraumatic Eye exam: PRESENT: EOMI Mouth exam: PRESENT: neck supple Neck exam: PRESENT: full ROM Respiratory exam: PRESENT: clear to auscultation dell Cardiovascular exam: PRESENT: irregular rhythm GI/Abdominal exam: PRESENT: normal bowel sounds, tenderness - midabdominal wall painful lump aboutr 7 cm in diameter, located 10 cm above and to the left of the umbilicus, mobile, enlarges lightly with coughing, other - large abdomen due to obesity Rectal exam: PRESENT: deferred Extremities exam: PRESENT: full ROM Musculoskeletal exam: PRESENT: full ROM Neurological exam: PRESENT: alert, awake Psychiatric exam: PRESENT: appropriate affect Results Laboratory Results: 04/04/18 17:10 04/04/18 17:10 Impressions: Chest X-Ray 03/27/18 18:33 IMPRESSION: CARDIAC ENLARGEMENT. VASCULAR CONGESTION. Scrotum Ultrasound 03/27/18 18:34 IMPRESSION: No evidence of testicular torsion. Asymmetrically enlarged right epididymis which may represent epididymitis in the correct clinical setting. Large bilateral hydroceles. Diffuse scrotal skin thickening. Assessment & Plan - Diagnosis (1) Ventral hernia Qualifiers: Obstruction and gangrene presence: without obstruction or gangrene Qualified Code(s): K43.9 - Ventral hernia without obstruction or gangrene Is this a current diagnosis for this admission?: Yes - Plan Summary Plan Summary: A/ Multiple medoical problems Atrial fibrillation currently on Eliquis incarcerated ventral hernia, 7 cm diameter, possible umbilical; however, no imaging present P/ Hold Eliquis CT scan A/P oral contrast only Plan surgery in 48 hrs is patient is cleared for surgery by Medicine Procedure should be done under [facility] or MAC plus local, if feasible
--- NOTE | 2018-04-05 21:18 | PDOC PROGRESS REPORT ---
Subjective Progress Note for:: 04/05/18 Subjective:: He has a ventral hernia but he is not a good candidate for surgery Reason For Visit: CHF/ANASARCA Physical Exam Vital Signs: Temp Pulse Resp BP Pulse Ox 97.6 F 122 H 18 104/72 100 04/05/18 16:31 04/05/18 16:31 04/05/18 16:31 04/05/18 16:31 04/05/18 16:31 Intake & Output 04/04/18 04/05/18 04/06/18 06:59 06:59 06:59 Intake Total 960 1448 892 Balance 960 1448 892 Weight 159 kg 158 kg General appearance: PRESENT: no acute distress Eye exam: PRESENT: PERRLA Respiratory exam: PRESENT: clear to auscultation dell Cardiovascular exam: PRESENT: +S1, +S2 GI/Abdominal exam: PRESENT: hernia Neurological exam: PRESENT: alert Results Laboratory Results: 04/04/18 17:10 04/04/18 17:10 Impressions: Chest X-Ray 03/27/18 18:33 IMPRESSION: CARDIAC ENLARGEMENT. VASCULAR CONGESTION. Scrotum Ultrasound 03/27/18 18:34 IMPRESSION: No evidence of testicular torsion. Asymmetrically enlarged right epididymis which may represent epididymitis in the correct clinical setting. Large bilateral hydroceles. Diffuse scrotal skin thickening. Assessment & Plan - Diagnosis (1) Anasarca Is this a current diagnosis for this admission?: Yes (2) Severe pulmonary arterial systolic hypertension Is this a current diagnosis for this admission?: Yes (3) Acute and chronic respiratory failure with hypercapnia Is this a current diagnosis for this admission?: Yes (4) Nephrotic syndrome Is this a current diagnosis for this admission?: Yes
[2018-04-06 06:12] LABS: HEMATOCRIT 31.1 % (37.9-51.0); HEMOGLOBIN 9.9 g/dL (13.5-17.0); MEAN CORPUSCULAR HEMOGLOBIN 25.9 pg (27.0-33.4); MEAN CORPUSCULAR HGB CONC 31.9 g/dL (32.0-36.0); MEAN CORPUSCULAR VOLUME 81 fl (80-97); PLATELET COUNT 168 10^3/uL (150-450); RED BLOOD COUNT 3.84 10^6/uL (4.35-5.55); RED CELL DISTRIBUTION WIDTH 17.3 % (11.5-14.0); WHITE BLOOD COUNT 3.2 10^3/uL (4.0-10.5)
[2018-04-06 06:45] LABS: ANION GAP 5 (5-19); BLOOD UREA NITROGEN 40 mg/dL (7-20); CALCIUM 8.9 mg/dL (8.4-10.2); CARBON DIOXIDE 33 mmol/L (22-30); CHLORIDE 101 mmol/L (98-107); GLUCOSE 101 mg/dL (75-110); POTASSIUM 4.8 mmol/L (3.6-5.0); SODIUM 139.3 mmol/L (137-145)
--- NOTE | 2018-04-06 08:51 | PDOC PROGRESS REPORT ---
Subjective Progress Note for:: 04/06/18 Subjective:: no c/o Reason For Visit: CHF/ANASARCA Physical Exam Vital Signs: Temp Pulse Resp BP Pulse Ox 97.5 F 55 L 18 101/67 98 04/06/18 03:24 04/06/18 03:24 04/06/18 04:37 04/06/18 03:24 04/06/18 03:24 Intake & Output 04/05/18 04/06/18 04/07/18 06:59 06:59 06:59 Intake Total 1448 2036 Balance 1442036 Weight 158 kg 141.3 kg General appearance: PRESENT: no acute distress GI/Abdominal exam: PRESENT: other - obese, midline supraumbilical mass Results Laboratory Results: 04/06/18 05:04 04/06/18 05:04 04/06/18 04/06/18 05:04 05:04 WBC 3.2 L RBC 3.84 L Hgb 9.9 L Hct 31.1 L MCV 81 MCH 25.9 L MCHC 31.9 L RDW 17.3 H Plt Count 168 Sodium 139.3 Potassium 4.8 Chloride 101 Carbon Dioxide 33 H Anion Gap 5 BUN 40 H Creatinine 1.49 H Est GFR ( Amer) 59 L Est GFR (Non-Af Amer) 49 L Glucose 101 Calcium 8.9 Impressions: Chest X-Ray 03/27/18 18:33 IMPRESSION: CARDIAC ENLARGEMENT. VASCULAR CONGESTION. Scrotum Ultrasound 03/27/18 18:34 IMPRESSION: No evidence of testicular torsion. Asymmetrically enlarged right epididymis which may represent epididymitis in the correct clinical setting. Large bilateral hydroceles. Diffuse scrotal skin thickening. Assessment & Plan - Diagnosis (1) Ventral hernia Qualifiers: Obstruction and gangrene presence: without obstruction or gangrene Qualified Code(s): K43.9 - Ventral hernia without obstruction or gangrene Is this a current diagnosis for this admission?: Yes - Plan Summary Plan Summary: A/ Midline ventral hernia supraumbilical CT scan A/P today Blood work WNL P/ Plan laparoscopic vs. open ventral hernmiorraphy with mesh in AM NPO after midnight IVF after midnight Continue to be off Elequis Procedure, riske, benefits explained to the patient,he understands all the above , his questions were answered and he decides to proceed. Dr. Carreno will perform the surtgery tomorrow and the patient is aware of it. \
[2018-04-06] MEDS: METOPROLOL TARTRATE 25 MG TABLET PO SCH ×2 (09:38→21:14)
[2018-04-06] MEDS: POTASSIUM CHLORIDE 10 MEQ CAPSULE.ER PO SCH ×2 (09:38→21:17)
[2018-04-06] MEDS: FUROSEMIDE INJ/PF 100 MG/10 ML SDV IV SCH ×2 (09:43→21:14)
--- NOTE | 2018-04-06 12:19 | RADIOLOGY REPORT (SQ) ---
EXAM DESCRIPTION: CT ABD/PELVIS ORAL ONLY COMPLETED DATE/TIME: 04/06/2018 11:52 am REASON FOR STUDY: r/o incarcerated ventral hernia COMPARISON: CT chest 07/04/2013 Abdominal ultrasound 01/08/2016 TECHNIQUE: CT scan of the abdomen and pelvis performed without intravenous or oral contrast. Images reviewed with lung, soft tissue, and bone windows. Reconstructed coronal and sagittal MPR images revi ewed. All images stored on PACS. All CT scanners at this facility use dose modulation, iterative reconstruction, and/or weight based d osing when appropriate to reduce radiation dose to as low as reasonably achievable (ALARA). [facility]: Dose Right [facility]: CareDose [facility]: Dose Right [facility]: Teradose 4D [facility]: [employer] RADIATION DOSE: CT Rad equipment meets quality standard of care and radiation dose reduction techniq ues were employed. CTDIvol: 31.5 mGy. DLP: 1758 mGy-cm.mGy. LIMITATIONS: Morbid obesity, abdomen partly cropped from the field of view due to large size FINDINGS: On coronal reconstruction image 17, and axial image 56 through 62, there is a subcentimete r defect in the anterior abdominal wall through which mesenteric fat protrudes. No bowel is identifi ed in the hernia sac. This is about 7 cm above the umbilicus. Patient drank oral contrast. No bowel obstruction. Small amount of ascites present in the abdominal cavity. LOWER CHEST: Massive cardiomegaly, with dilatation of the right atrium and abdominal vena cava indica ting right heart failure NON-CONTRASTED LIVER, SPLEEN, ADRENALS: Limited view, no gross masses. PANCREAS: No masses. No peripancreatic inflammatory changes. GALLBLADDER: No identified stones by CT criteria. No inflammatory changes to suggest cholecystitis. RIGHT KIDNEY AND URETER: No suspicious masses. Assessment limited by lack of IV contrast. No signif icant calcifications. No hydronephrosis or hydroureter. LEFT KIDNEY AND URETER: No suspicious masses. Assessment limited by lack of IV contrast. No signifi cant calcifications. No hydronephrosis or hydroureter. AORTA AND RETROPERITONEUM: No aneurysm. No retroperitoneal masses or adenopathy. BOWEL AND PERITONEAL CAVITY: As above APPENDIX: Not identified PELVIS, BLADDER:No abnormal masses. No free fluid. Bladder normal. BONES: No significant findings. OTHER: No other significant finding. IMPRESSION: Tiny midline ventral hernia about 7 to 10 cm superior to the umbilicus containing hernia luis abdominal wall fat. Small amount of ascites No bowel obstruction COMMENT: Quality ID # [id number]: Final reports with documentation of one or more dose reduction techniques (e.g., Automated exposure control, adjustment of the mA and/or kV according to patient size, use of iterative reconstruction technique) TECHNICAL DOCUMENTATION: JOB ID: [id number] [employer]- All Rights Reserved Reading location - IP/workstation name: [facility]
--- NOTE | 2018-04-06 19:45 | PDOC PROGRESS REPORT ---
Subjective Progress Note for:: 04/06/18 Subjective:: Patient seen by the bedside, he has ventral hernia, he is at high risk for surgery. Patient needs a hospital bed on discharge home, he has chronic diastolic heart failure, severe morbid obesity, if we need a hospital bed for cardiac position, to adjust head of the bed. Reason For Visit: CHF/ANASARCA Physical Exam Vital Signs: Temp Pulse Resp BP Pulse Ox 97.8 F 84 16 103/58 L 97 04/06/18 16:05 04/06/18 16:05 04/06/18 16:05 04/06/18 16:05 04/06/18 16:05 Intake & Output 04/05/18 04/06/18 04/07/18 06:59 06:59 06:59 Intake Total 1448 2037 872 Balance 1448 7 872 Weight 158 kg 141.3 kg General appearance: PRESENT: no acute distress Eye exam: PRESENT: PERRLA Respiratory exam: PRESENT: clear to auscultation dell Cardiovascular exam: PRESENT: +S1, +S2 GI/Abdominal exam: PRESENT: soft Neurological exam: PRESENT: alert Results Laboratory Results: 04/06/18 05:04 04/06/18 05:04 04/06/18 04/06/18 05:04 05:04 WBC 3.2 L RBC 3.84 L Hgb 9.9 L Hct 31.1 L MCV 81 MCH 25.9 L MCHC 31.9 L RDW 17.3 H Plt Count 168 Sodium 139.3 Potassium 4.8 Chloride 101 Carbon Dioxide 33 H Anion Gap 5 BUN 40 H Creatinine 1.49 H Est GFR ( Amer) 59 L Est GFR (Non-Af Amer) 49 L Glucose 101 Calcium 8.9 Impressions: Chest X-Ray 03/27/18 18:33 IMPRESSION: CARDIAC ENLARGEMENT. VASCULAR CONGESTION. Scrotum Ultrasound 03/27/18 18:34 IMPRESSION: No evidence of testicular torsion. Asymmetrically enlarged right epididymis which may represent epididymitis in the correct clinical setting. Large bilateral hydroceles. Diffuse scrotal skin thickening. Abdomen/Pelvis CT 04/06/18 00:00 IMPRESSION: Tiny midline ventral hernia about 7 to 10 cm superior to the umbilicus containing herniated abdominal wall fat. Small amount of ascites No bowel obstruction Assessment & Plan - Diagnosis (1) Anasarca Is this a current diagnosis for this admission?: Yes (2) Severe pulmonary arterial systolic hypertension Is this a current diagnosis for this admission?: Yes (3) Acute and chronic respiratory failure with hypercapnia Is this a current diagnosis for this admission?: Yes (4) Nephrotic syndrome Is this a current diagnosis for this admission?: Yes (5) Chronic diastolic (congestive) heart failure Is this a current diagnosis for this admission?: Yes Plan: Consultation requested from discharge planning for hospital bed
[2018-04-06] MEDS: SIMVASTATIN 10 MG TABLET PO SCH (21:15)
[2018-04-06] MEDS: APIXABAN 2.5 MG TABLET PO SCH (21:17)
[2018-04-06] MEDS ORDERED: NORMAL SALINE 1000 ML 1,000 ML IV PRN ×2 (22:00)
[2018-04-07] MEDS: ACETAMINOPHEN 325 MG TABLET PO PRN ×2 (02:41→22:17)
[2018-04-07] MEDS ORDERED: CEFAZOLIN 2 GM/D5W RTU 2 GM/50 ML RTUPB IV PRN (08:00)
[2018-04-07] MEDS: METOPROLOL TARTRATE 25 MG TABLET PO SCH ×2 (09:15→21:38)
[2018-04-07] MEDS: POTASSIUM CHLORIDE 10 MEQ CAPSULE.ER PO SCH ×2 (09:15→21:38)
[2018-04-07] MEDS: FUROSEMIDE INJ/PF 100 MG/10 ML SDV IV SCH ×2 (09:23→21:41)
[2018-04-07] MEDS: APIXABAN 2.5 MG TABLET PO SCH ×2 (09:23→21:43)
[2018-04-07] MEDS: SERTRALINE HCL 50 MG TABLET PO SCH (09:23)
--- NOTE | 2018-04-07 09:55 | PDOC PROGRESS REPORT ---
Subjective Progress Note for:: 04/07/18 Subjective:: Patient has reconsidered going for surgery and does not wish to undergo surgery at this time. He has had the abdominal lump for a number of years and he is not hurting in this area. Reason For Visit: CHF/ANASARCA Physical Exam Vital Signs: Temp Pulse Resp BP Pulse Ox 98.0 F 79 14 99/56 L 96 04/07/18 08:00 04/07/18 08:00 04/07/18 08:00 04/07/18 08:00 04/07/18 08:28 Intake & Output 04/06/18 04/07/18 04/08/18 06:59 06:59 06:59 Intake Total 2036 2077 Balance 2036 2077 Weight 141.3 kg 141.3 kg General appearance: PRESENT: no acute distress, cooperative GI/Abdominal exam: PRESENT: other - Soft with a palpable slightly larger than a golf ball size lump that is nonreducible in his mid abdomen. No erythema and no crepitus. Results Laboratory Results: 04/06/18 05:04 04/06/18 05:04 Impressions: Chest X-Ray 03/27/18 18:33 IMPRESSION: CARDIAC ENLARGEMENT. VASCULAR CONGESTION. Scrotum Ultrasound 03/27/18 18:34 IMPRESSION: No evidence of testicular torsion. Asymmetrically enlarged right epididymis which may represent epididymitis in the correct clinical setting. Large bilateral hydroceles. Diffuse scrotal skin thickening. Abdomen/Pelvis CT 04/06/18 00:00 IMPRESSION: Tiny midline ventral hernia about 7 to 10 cm superior to the umbilicus containing herniated abdominal wall fat. Small amount of ascites No bowel obstruction Assessment & Plan - Diagnosis (1) Ventral hernia Qualifiers: Obstruction and gangrene presence: without obstruction or gangrene Qualified Code(s): K43.9 - Ventral hernia without obstruction or gangrene Is this a current diagnosis for this admission?: Yes Plan: Ventral hernia with chronically incarcerated fat within it. Patient does not wish to undergo surgery at this time. Patient is essentially asymptomatic. There is no bowel involvement of his hernia. The hernia is long-standing. Patient does have significant comorbidities with a significant perioperative risk and I think it is a reasonable choice that he has made at this time. I have explained to the patient the significance of a ventral hernia and the risk that he may increase in size and the risk of bowel incarceration. Currently incarcerated fat is acting like a plug repair and there is no urgent need for surgery. If the patient reconsiders surgical options, we will be glad to talk to him. We would need cardiology input prior to surgery however in that circumstance. We will have him restart a diet and Eliquis.
[2018-04-07] MEDS: SIMVASTATIN 10 MG TABLET PO SCH (21:43)
[2018-04-07] MEDS: SIMETHICONE 80 MG TAB.CHEW PO PRN (21:43)
[2018-04-08] MEDS: APIXABAN 2.5 MG TABLET PO SCH ×2 (10:49→22:20)
[2018-04-08] MEDS: FUROSEMIDE INJ/PF 100 MG/10 ML SDV IV SCH ×2 (10:49→22:19)
[2018-04-08] MEDS: SERTRALINE HCL 50 MG TABLET PO SCH (10:49)
[2018-04-08] MEDS: POTASSIUM CHLORIDE 10 MEQ CAPSULE.ER PO SCH ×2 (10:49→22:19)
[2018-04-08] MEDS: METOPROLOL TARTRATE 25 MG TABLET PO SCH ×2 (10:50→22:20)
[2018-04-08 11:09] LABS: ABSOLUTE EOSINOPHILS # (AUTO) 0.2 10^3/uL (0.0-0.6); ABSOLUTE LYMPHOCYTES (AUTO) 0.6 10^3/uL (0.5-4.7); ABSOLUTE MONOCYTES (AUTO) 0.5 10^3/uL (0.1-1.4); ABSOLUTE NEUT (AUTO) 1.9 10^3/uL (1.7-8.2); BASOPHILS % (AUTO) 1.3 % (0-2); EOSINOPHILS % (AUTO) 6.7 % (0-6); LYMPHOCYTES % (AUTO) 19.8 % (13-45); MEAN CORPUSCULAR HEMOGLOBIN 26.1 pg (27.0-33.4); MEAN CORPUSCULAR HGB CONC 32.3 g/dL (32.0-36.0); MEAN CORPUSCULAR VOLUME 81 fl (80-97); MONOCYTES % (AUTO) 14.3 % (3-13); PLATELET COUNT 160 10^3/uL (150-450); RED BLOOD COUNT 3.84 10^6/uL (4.35-5.55); RED CELL DISTRIBUTION WIDTH 17.4 % (11.5-14.0); SEGMENTED NEUTROPHILS % (AUTO) 57.9 % (42-78); TOTAL CELLS COUNTED % (AUTO) 100 %; WHITE BLOOD COUNT 3.3 10^3/uL (4.0-10.5)
[2018-04-08 11:38] LABS: ANION GAP 7 (5-19); BLOOD UREA NITROGEN 35 mg/dL (7-20); CALCIUM 8.9 mg/dL (8.4-10.2); CARBON DIOXIDE 33 mmol/L (22-30); CHLORIDE 99 mmol/L (98-107); GLUCOSE 99 mg/dL (75-110); POTASSIUM 4.5 mmol/L (3.6-5.0); SODIUM 138.8 mmol/L (137-145)
--- NOTE | 2018-04-08 21:13 | PDOC PROGRESS REPORT ---
Subjective Progress Note for:: 04/08/18 Subjective:: Patient seen by the bedside Reason For Visit: CHF/ANASARCA Physical Exam Vital Signs: Temp Pulse Resp BP Pulse Ox 97.9 F 72 16 112/70 91 L 04/08/18 16:00 04/08/18 16:00 04/08/18 16:00 04/08/18 16:00 04/08/18 16:00 Intake & Output 04/07/18 04/08/18 04/09/18 06:59 06:59 06:59 Intake Total 8 2544 480 Output Total 8 Balance 8 2536 480 Weight 141.3 kg 141.5 kg General appearance: PRESENT: no acute distress Eye exam: PRESENT: PERRLA Respiratory exam: PRESENT: clear to auscultation dell Cardiovascular exam: PRESENT: +S1, +S2 GI/Abdominal exam: PRESENT: soft Neurological exam: PRESENT: alert Results Laboratory Results: 04/08/18 10:50 04/08/18 10:50 04/08/18 04/08/18 10:50 10:50 WBC 3.3 L RBC 3.84 L Hgb 10.0 L Hct 31.0 L MCV 81 MCH 26.1 L MCHC 32.3 RDW 17.4 H Plt Count 160 Seg Neutrophils % 57.9 Lymphocytes % 19.8 Monocytes % 14.3 H Eosinophils % 6.7 H Basophils % 1.3 Absolute Neutrophils 1.9 Absolute Lymphocytes 0.6 Absolute Monocytes 0.5 Absolute Eosinophils 0.2 Absolute Basophils 0.0 Sodium 138.8 Potassium 4.5 Chloride 99 Carbon Dioxide 33 H Anion Gap 7 BUN 35 H Creatinine 1.44 H Est GFR ( Amer) > 60 Est GFR (Non-Af Amer) 51 L Glucose 99 Calcium 8.9 Impressions: Chest X-Ray 03/27/18 18:33 IMPRESSION: CARDIAC ENLARGEMENT. VASCULAR CONGESTION. Scrotum Ultrasound 03/27/18 18:34 IMPRESSION: No evidence of testicular torsion. Asymmetrically enlarged right epididymis which may represent epididymitis in the correct clinical setting. Large bilateral hydroceles. Diffuse scrotal skin thickening. Abdomen/Pelvis CT 04/06/18 00:00 IMPRESSION: Tiny midline ventral hernia about 7 to 10 cm superior to the umbilicus containing herniated abdominal wall fat. Small amount of ascites No bowel obstruction Assessment & Plan - Diagnosis (1) Anasarca Is this a current diagnosis for this admission?: Yes (2) Severe pulmonary arterial systolic hypertension Is this a current diagnosis for this admission?: Yes (3) Acute and chronic respiratory failure with hypercapnia Is this a current diagnosis for this admission?: Yes (4) Nephrotic syndrome Is this a current diagnosis for this admission?: Yes
[2018-04-08] MEDS: SIMVASTATIN 10 MG TABLET PO SCH (22:20)
[2018-04-09] MEDS: POTASSIUM CHLORIDE 10 MEQ CAPSULE.ER PO SCH ×2 (09:25→21:36)
[2018-04-09] MEDS: SERTRALINE HCL 50 MG TABLET PO SCH (09:25)
[2018-04-09] MEDS: APIXABAN 2.5 MG TABLET PO SCH ×2 (09:25→21:37)
[2018-04-09] MEDS: FUROSEMIDE INJ/PF 100 MG/10 ML SDV IV SCH ×2 (09:26→21:36)
[2018-04-09] MEDS: METOPROLOL TARTRATE 25 MG TABLET PO SCH ×2 (12:02→21:36)
--- NOTE | 2018-04-09 12:54 | PDOC PROGRESS REPORT ---
Subjective Progress Note for:: 04/09/18 Subjective:: Patient denied chest pain or difficulty with breathing. Reported excessive dryness to his nostrum from BiPAP usage. No fever or chills. Urine output reported significant. Remain on Lasix therapy. Reason For Visit: CHF/ANASARCA Physical Exam Vital Signs: Temp Pulse Resp BP Pulse Ox 97.5 F 91 23 H 108/68 100 04/09/18 11:45 04/09/18 11:45 04/09/18 11:45 04/09/18 11:45 04/09/18 11:45 Intake & Output 04/08/18 04/09/18 04/10/18 06:59 06:59 06:59 Intake Total 2544 1130 Output Total 8 Balance 2536 1130 Weight 141.5 kg 160 kg General appearance: PRESENT: no acute distress, morbidly obese Head exam: PRESENT: atraumatic, normocephalic Ear exam: PRESENT: normal external ear exam Mouth exam: PRESENT: moist Respiratory exam: PRESENT: clear to auscultation dell, decreased breath sounds - at lung bases Cardiovascular exam: PRESENT: RRR. ABSENT: diastolic murmur, rubs, systolic murmur Vascular exam: ABSENT: pallor GI/Abdominal exam: PRESENT: normal bowel sounds, soft, other - excessive edema due to CHF. ABSENT: distended, guarding, mass, organolmegaly, rebound, tenderness Extremities exam: PRESENT: pedal edema, other - unna wrap in use bilaterally Musculoskeletal exam: PRESENT: other - bedbound presently Neurological exam: PRESENT: alert, awake, oriented to person, oriented to place , oriented to time, oriented to situation, CN II-XII grossly intact. ABSENT: motor sensory deficit Skin exam: PRESENT: dry, warm, other - unna wrap to feet and legs Results Laboratory Results: 04/08/18 10:50 04/08/18 10:50 Impressions: Chest X-Ray 03/27/18 18:33 IMPRESSION: CARDIAC ENLARGEMENT. VASCULAR CONGESTION. Scrotum Ultrasound 03/27/18 18:34 IMPRESSION: No evidence of testicular torsion. Asymmetrically enlarged right epididymis which may represent epididymitis in the correct clinical setting. Large bilateral hydroceles. Diffuse scrotal skin thickening. Abdomen/Pelvis CT 04/06/18 00:00 IMPRESSION: Tiny midline ventral hernia about 7 to 10 cm superior to the umbilicus containing herniated abdominal wall fat. Small amount of ascites No bowel obstruction Assessment & Plan - Diagnosis (1) Acute on chronic combined systolic (congestive) and diastolic (congestive) heart failure Is this a current diagnosis for this admission?: Yes Plan: Continue current medication management. (2) Atrial fibrillation with controlled ventricular response Is this a current diagnosis for this admission?: Yes Plan: Continue current medication management. (3) Chronic acquired lymphedema Is this a current diagnosis for this admission?: Yes Plan: Continue current medication management. - Time Time Spent with patient: 25-34 minutes Medications reviewed and adjusted accordingly: Yes Anticipated discharge: Home with Homehealth Within: Other - Inpatient Certification Based on my medical assessment, after consideration of the patient's comorbidities, presenting symptoms, or acuity I expect that the services needed warrant INPATIENT care.: Yes I certify that my determination is in accordance with my understanding of Medicare's requirements for reasonable and necessary INPATIENT services [42 CFR 412.3e].: Yes Medical Necessity: Need Close Monitoring Due to Risk of Patient Decompensation, Need For Continuous Telemetry Monitoring, Risk of Complication if Not Cared For in Hospital Post Hospital Care: D/C Shrimp Picker Documentation - Plan Summary Plan Summary: Continue current medication management.
[2018-04-09] MEDS: SODIUM CHLORIDE NASAL SPRAY 44 ML NASL SCH ×2 (17:40→21:37)
[2018-04-09] MEDS: SIMVASTATIN 10 MG TABLET PO SCH (21:36)
[2018-04-10] MEDS: SODIUM CHLORIDE NASAL SPRAY 44 ML NASL SCH ×4 (07:32→21:16)
[2018-04-10] MEDS: SIMETHICONE 80 MG TAB.CHEW PO PRN (07:36)
[2018-04-10] MEDS: METOPROLOL TARTRATE 25 MG TABLET PO SCH ×2 (09:11→21:15)
[2018-04-10] MEDS: SERTRALINE HCL 50 MG TABLET PO SCH (09:12)
[2018-04-10] MEDS: FUROSEMIDE INJ/PF 100 MG/10 ML SDV IV SCH ×2 (09:12→21:16)
[2018-04-10] MEDS: POTASSIUM CHLORIDE 10 MEQ CAPSULE.ER PO SCH ×2 (09:12→21:16)
[2018-04-10] MEDS: APIXABAN 2.5 MG TABLET PO SCH (09:13)
--- NOTE | 2018-04-10 11:24 | PDOC PROGRESS REPORT ---
Subjective Progress Note for:: 04/10/18 Subjective:: Patient reported up[set stomach and requesting for Maalox. No nausea or vomiting. He denied chest pain or difficulty with breathing. Remain on BiPAP support. No fever or chills. Reason For Visit: CHF/ANASARCA Physical Exam Vital Signs: Temp Pulse Resp BP Pulse Ox 98.2 F 100 18 109/62 95 04/10/18 07:21 04/10/18 07:21 04/10/18 07:21 04/10/18 07:21 04/10/18 08:09 Intake & Output 04/09/18 04/10/18 04/11/18 06:59 06:59 06:59 Intake Total 1130 1240 Balance 1130 1240 Weight 160 kg 158.7 kg Physical Exam: General appearance: PRESENT: no acute distress, morbidly obese Head exam: PRESENT: atraumatic, normocephalic Ear exam: PRESENT: normal external ear exam Mouth exam: PRESENT: moist Respiratory exam: PRESENT: clear to auscultation dell, decreased breath sounds - at lung bases Cardiovascular exam: PRESENT: RRR. ABSENT: diastolic murmur, rubs, systolic murmur Vascular exam: ABSENT: pallor GI/Abdominal exam: PRESENT: normal bowel sounds, soft, other - excessive edema due to CHF. ABSENT: distended, guarding, mass, organolmegaly, rebound, tenderness Extremities exam: PRESENT: pedal edema, other - unna wrap in use bilaterally Musculoskeletal exam: PRESENT: other - bedbound presently Neurological exam: PRESENT: alert, awake, oriented to person, oriented to place , oriented to time, oriented to situation, CN II-XII grossly intact. ABSENT: motor sensory deficit Skin exam: PRESENT: dry, warm, other - unna wrap to feet and legs Results Laboratory Results: 04/08/18 10:50 04/08/18 10:50 Impressions: Chest X-Ray 03/27/18 18:33 IMPRESSION: CARDIAC ENLARGEMENT. VASCULAR CONGESTION. Scrotum Ultrasound 03/27/18 18:34 IMPRESSION: No evidence of testicular torsion. Asymmetrically enlarged right epididymis which may represent epididymitis in the correct clinical setting. Large bilateral hydroceles. Diffuse scrotal skin thickening. Abdomen/Pelvis CT 04/06/18 00:00 IMPRESSION: Tiny midline ventral hernia about 7 to 10 cm superior to the umbilicus containing herniated abdominal wall fat. Small amount of ascites No bowel obstruction Assessment & Plan - Diagnosis (1) Acute on chronic combined systolic (congestive) and diastolic (congestive) heart failure Is this a current diagnosis for this admission?: Yes (2) Atrial fibrillation with controlled ventricular response Is this a current diagnosis for this admission?: Yes (3) Chronic acquired lymphedema Is this a current diagnosis for this admission?: Yes - Time Time Spent with patient: 25-34 minutes Medications reviewed and adjusted accordingly: Yes Anticipated discharge: Home with Homehealth Within: Other - Inpatient Certification Based on my medical assessment, after consideration of the patient's comorbidities, presenting symptoms, or acuity I expect that the services needed warrant INPATIENT care.: Yes I certify that my determination is in accordance with my understanding of Medicare's requirements for reasonable and necessary INPATIENT services [42 CFR 412.3e].: Yes Medical Necessity: Need Close Monitoring Due to Risk of Patient Decompensation, Need For Continuous Telemetry Monitoring, Need for Nebulizer Therapy and Monitoring of Response, Risk of Complication if Not Cared For in Hospital Post Hospital Care: D/C Tile Mason Documentation - Plan Summary Plan Summary: See covering attending physician orders.
[2018-04-10] MEDS: MAG HYDROX/AL HYDROX/SIMETH SUSP 30 ML UDCUP PO PRN (14:16)
[2018-04-10] MEDS: SIMVASTATIN 10 MG TABLET PO SCH (21:16)
[2018-04-11] MEDS: MAG HYDROX/AL HYDROX/SIMETH SUSP 30 ML UDCUP PO PRN (08:06)
[2018-04-11] MEDS: SODIUM CHLORIDE NASAL SPRAY 44 ML NASL SCH ×4 (08:06→21:04)
[2018-04-11] MEDS: METOPROLOL TARTRATE 25 MG TABLET PO SCH ×2 (10:30→21:04)
[2018-04-11] MEDS: POTASSIUM CHLORIDE 10 MEQ CAPSULE.ER PO SCH ×2 (10:30→21:03)
[2018-04-11] MEDS: SERTRALINE HCL 50 MG TABLET PO SCH (10:31)
[2018-04-11] MEDS: FUROSEMIDE INJ/PF 100 MG/10 ML SDV IV SCH ×2 (10:31→21:03)
[2018-04-11] MEDS: APIXABAN 5 MG TABLET PO SCH ×2 (10:32→17:27)
[2018-04-11] MEDS: SIMVASTATIN 10 MG TABLET PO SCH (21:03)
--- NOTE | 2018-04-11 21:20 | PDOC DISCHARGE SUMMARY ---
General - Admit/Disc Date/PCP Admission Date/Primary Care Provider: 03/28/18 08:31 ZOYA LEONE MD Discharge Date: 04/11/18 - Discharge Diagnosis (1) Anasarca Is this a current diagnosis for this admission?: Yes (2) Severe pulmonary arterial systolic hypertension Is this a current diagnosis for this admission?: Yes (3) Acute and chronic respiratory failure with hypercapnia Is this a current diagnosis for this admission?: Yes (4) Nephrotic syndrome Is this a current diagnosis for this admission?: Yes - Additional Information Resuscitation Status: Full Code Discharge Diet: Cardiac Discharge Activity: Activity As Tolerated, Balance Activity w/Rest, Weigh Daily Home Medications: Apixaban [Eliquis 2.5 mg Tablet] 2.5 mg PO Q12 03/28/18 Metoprolol Tartrate [Lopressor 25 mg Tablet] 25 mg PO DAILY 03/28/18 Simvastatin [Zocor 10 mg Tablet] 10 mg PO QHS 03/28/18 Sodium Chloride [Shannon Nasal [place] 44 ml Bottle] 2 spray NASL Q12 03/28/18 Torsemide [Demadex 20 mg Tablet] 20 mg PO Q12 03/28/18 History of Present Illness History of Present Illness: ELEONORA SHEFFIELD is a 57 year old male, He was admitted for the management of anasarca, history of chronic diastolic heart failure, nephrotic syndrome Hospital Course Hospital Course: Patient was admitted for the management of acute diastolic heart failure, He has chronic diastolic heart failure, nephrotic syndrome.He continues to require positive pressure ventilation, BiPAP. He will require a hospital bed type at home to help with adjusting his position Physical Exam Vital Signs: Temp Pulse Resp BP Pulse Ox 97.9 F 81 17 104/59 L 100 04/11/18 19:28 04/11/18 19:28 04/11/18 19:28 04/11/18 19:28 04/11/18 19:28 Intake & Output 04/10/18 04/11/18 04/12/18 06:59 06:59 06:59 Intake Total 1240 1144 829 Balance 1240 1144 829 Weight 158.7 kg 159.4 kg General appearance: PRESENT: morbidly obese Eye exam: PRESENT: PERRLA Respiratory exam: PRESENT: clear to auscultation dell Cardiovascular exam: PRESENT: +S1, +S2, systolic murmur GI/Abdominal exam: PRESENT: soft Extremities exam: PRESENT: pedal edema Neurological exam: PRESENT: alert Results Laboratory Results: 04/08/18 10:50 04/08/18 10:50 Impressions: Chest X-Ray 03/27/18 18:33 IMPRESSION: CARDIAC ENLARGEMENT. VASCULAR CONGESTION. Scrotum Ultrasound 03/27/18 18:34 IMPRESSION: No evidence of testicular torsion. Asymmetrically enlarged right epididymis which may represent epididymitis in the correct clinical setting. Large bilateral hydroceles. Diffuse scrotal skin thickening. Abdomen/Pelvis CT 04/06/18 00:00 IMPRESSION: Tiny midline ventral hernia about 7 to 10 cm superior to the umbilicus containing herniated abdominal wall fat. Small amount of ascites No bowel obstruction Qualifiers - * PATIENT BEING DISCHARGED WITH ANY OF THE FOLLOWING DIAGNOSIS: No
[2018-04-12] MEDS: SODIUM CHLORIDE NASAL SPRAY 44 ML NASL SCH ×3 (07:42→17:15)
[2018-04-12] MEDS: FUROSEMIDE INJ/PF 100 MG/10 ML SDV IV SCH (10:21)
[2018-04-12] MEDS: METOPROLOL TARTRATE 25 MG TABLET PO SCH (10:21)
[2018-04-12] MEDS: POTASSIUM CHLORIDE 10 MEQ CAPSULE.ER PO SCH (10:21)
[2018-04-12] MEDS: SERTRALINE HCL 50 MG TABLET PO SCH (10:22)
[2018-04-12] MEDS: APIXABAN 5 MG TABLET PO SCH ×2 (10:23→17:14)
[2018-04-12 11:04] VITALS: BP 108/58
== END 2018-04-12 17:25 | disposition home or self-care (01) | DRG 291 ==
LOC: ER 17:08 → EH 03-28 08:31 → 4S 03-28 17:44
PROVIDERS: ADMIT Internal Medicine; ATTEND Internal Medicine
DX: I11.0 Hypertensive heart disease with heart failure (principal); J96.22 Acute and chronic respiratory failure with hypercapnia; J96.21 Acute and chronic respiratory failure with hypoxia; N04.9 Nephrotic syndrome with unspecified morphologic changes; Z68.42 Body mass index [BMI] 45.0-49.9, adult; I50.43 Acute on chronic combined systolic (congestive) and diastolic (congestive) heart failure; I27.21 Secondary pulmonary arterial hypertension; E87.6 Hypokalemia; I48.2 Chronic atrial fibrillation; I25.10 Atherosclerotic heart disease of native coronary artery without angina pectoris; I87.2 Venous insufficiency (chronic) (peripheral); K43.9 Ventral hernia without obstruction or gangrene; J44.9 Chronic obstructive pulmonary disease, unspecified; I73.9 Peripheral vascular disease, unspecified; N50.819 Testicular pain, unspecified; G47.33 Obstructive sleep apnea (adult) (pediatric); E66.01 Morbid (severe) obesity due to excess calories; X37.0XXA Hurricane, initial encounter; Y93.89 Activity, other specified; Y92.098 Other place in other non-institutional residence as the place of occurrence of the external cause; Z79.01 Long term (current) use of anticoagulants; Z86.711 Personal history of pulmonary embolism; Z99.81 Dependence on supplemental oxygen; Z87.891 Personal history of nicotine dependence; Z60.2 Problems related to living alone
CPT/HCPCS: 36415; 71045; 74176; 76870; 80048; 80053; 82272; 82550; 82553; 83735; 83880; 84100; 84484; 85025; 85027; 85610; 90471; 90686; 93005; 93010; 93976; 94660; 96374; 96376; 99285; G0008; J0690; J1940; J2405; J3490

== ENCOUNTER 2018-04-16 17:16 | Emergency (ER) | payer OTHER, MEDICARE, MEDICAID ==
[2018-04-16 18:25] LABS: ABSOLUTE EOSINOPHILS # (AUTO) 0.3 10^3/uL (0.0-0.6); ABSOLUTE LYMPHOCYTES (AUTO) 0.7 10^3/uL (0.5-4.7); ABSOLUTE MONOCYTES (AUTO) 0.4 10^3/uL (0.1-1.4); ABSOLUTE NEUT (AUTO) 2.4 10^3/uL (1.7-8.2); BASOPHILS % (AUTO) 0.9 % (0-2); EOSINOPHILS % (AUTO) 6.5 % (0-6); HEMATOCRIT 33.1 % (37.9-51.0); HEMOGLOBIN 10.9 g/dL (13.5-17.0); MEAN CORPUSCULAR HEMOGLOBIN 26.2 pg (27.0-33.4); MEAN CORPUSCULAR VOLUME 79 fl (80-97); MONOCYTES % (AUTO) 11.1 % (3-13); PLATELET COUNT 113 10^3/uL (150-450); RED BLOOD COUNT 4.17 10^6/uL (4.35-5.55); SEGMENTED NEUTROPHILS % (AUTO) 62.5 % (42-78); TOTAL CELLS COUNTED % (AUTO) 100 %; WHITE BLOOD COUNT 3.9 10^3/uL (4.0-10.5)
[2018-04-16 18:47] LABS: APPEARANCE,URINE CLEAR; BILIRUBIN,URINE NEGATIVE (NEGATIVE); COLOR,URINE YELLOW; GLUCOSE, URINE NEGATIVE (NEGATIVE); KETONES,URINE NEGATIVE (NEGATIVE); LEUKOCYTE ESTERASE,URINE NEGATIVE (NEGATIVE); NITRITE,URINE NEGATIVE (NEGATIVE); PROTEIN,URINE 30 mg/dL (NEGATIVE); URINE SPECIFIC GRAVITY 1.013
[2018-04-16 18:49] LABS: ALANINE AMINOTRANSFERASE 14 U/L (21-72); ALBUMIN 3.8 g/dL (3.5-5.0); ALKALINE PHOSPHATASE 64 U/L (38-126); ANION GAP 10 (5-19); ASPARTATE AMINO TRANSFERASE 21 U/L (17-59); BILIRUBIN,DIRECT 1.2 mg/dL (0.0-0.4); BILIRUBIN,TOTAL 2.4 mg/dL (0.2-1.3); BLOOD UREA NITROGEN 32 mg/dL (7-20); CALCIUM 9.3 mg/dL (8.4-10.2); CARBON DIOXIDE 29 mmol/L (22-30); CHLORIDE 100 mmol/L (98-107); GLUCOSE 94 mg/dL (75-110); LIPASE 78.3 U/L (23-300); TOTAL PROTEIN 7.9 g/dL (6.3-8.2)
--- NOTE | 2018-04-16 18:50 | ER Document Report ---
ED General - General Chief Complaint: Nose Bleed Stated Complaint: NOSE BLEED Time Seen by Provider: 04/16/18 17:57 Mode of Arrival: Ambulatory Information source: Patient Notes: 57-year-old male presents emergency department for complaints of dark stool. Patient states that this started when he was discharged on 04/13/18. Patient states that he has had about 3 bowel movements a day. He states that today he also had a nosebleed. He is on eliquis. He denies nausea, vomiting. Says he's had abdominal pain from a hernia over the last few years. This pain is chronic in nature. No new changes. TRAVEL OUTSIDE OF THE [place] IN LAST 30 DAYS: No - HPI Onset: Other - 3 days ago. Onset/Duration: Gradual Quality of pain: No pain Severity: None Pain Level: Denies Associated symptoms: Diarrhea Exacerbated by: Denies Relieved by: Denies Similar symptoms previously: No Recently seen / treated by doctor: Yes - Related Data Allergies/Adverse Reactions: No Known Allergies Allergy (Verified 01/31/18 16:08) Past Medical History - General Information source: Patient - Social History Smoking Status: Unknown if Ever Smoked Chew tobacco use (# tins/day): No Frequency of alcohol use: None Drug Abuse: None Family History: CAD, COPD, CVA, DM, Hypertension Patient has suicidal ideation: No Patient has homicidal ideation: No - Past Medical History Cardiac Medical History: Reports: Hx Atrial Fibrillation, Hx Congestive Heart Failure, Hx Coronary Artery Disease, Hx Hypercholesterolemia, Hx Hypertension, Hx Peripheral Vascular Disease, Hx Pulmonary Embolism Pulmonary Medical History: Reports: Hx COPD, Hx Sleep Apnea Renal/ Medical History: Reports: Hx Renal Insufficiency. Denies: Hx Peritoneal Dialysis GI Medical History: Reports: Hx Gastritis, Hx Ulcerative Colitis Musculoskeletal Medical History: Reports Hx Arthritis Psychiatric Medical History: Denies: Hx Depression Past Surgical History: Reports: Hx Tonsillectomy, Other - Tooth extraction - Immunizations Hx Diphtheria, Pertussis, Tetanus Vaccination: No Review of Systems - Review of Systems Constitutional: No symptoms reported EENT: No symptoms reported Cardiovascular: No symptoms reported Respiratory: No symptoms reported Gastrointestinal: Diarrhea, Black stools Musculoskeletal: No symptoms reported Skin: No symptoms reported Hematologic/Lymphatic: No symptoms reported Neurological/Psychological: No symptoms reported -: Yes All other systems reviewed and negative Physical Exam - Vital signs Vitals: Temp Pulse Resp BP Pulse Ox 98.5 F 104 H 16 124/82 88 L 04/16/18 19:43 10 19:43 04/16/18 19:43 04/16/18 19:43 04/16/18 19:43 - Notes Notes: PHYSICAL EXAMINATION: GENERAL: Well-appearing, well-nourished and in no acute distress. HEAD: Atraumatic, normocephalic. EYES: Pupils equal round and reactive to light, extraocular movements intact, sclera anicteric, conjunctiva are normal. ENT: Nares patent, oropharynx clear without exudates. Moist mucous membranes. NECK: Normal range of motion, supple without lymphadenopathy LUNGS: Breath sounds clear to auscultation bilaterally and equal. No wheezes rales or rhonchi. HEART: Regular rate and rhythm without murmurs ABDOMEN: Morbidly obese, Soft, nontender, nondistended abdomen. No guarding, no rebound. No masses appreciated. Musculoskeletal: Normal range of motion, no pitting or edema. No cyanosis. NEUROLOGICAL: Cranial nerves grossly intact. Normal speech, normal gait. Normal sensory, motor exams PSYCH: Normal mood, normal affect. SKIN: Warm, Dry, normal turgor, no rashes or lesions noted. Course - Re-evaluation Re-evalutation: 04/16/18 18:57 No gross blood seen on rectal exam. Patient's labs to come back for Hemoccult positive stool. CT abd/pel done on 04/06 showed an abdominal wall fat containing hernia. 04/16/18 20:55 Patient denies a history of cirrhosis, varices. Previous CT showed some ascites. I contacted the general surgeon to discuss endoscopy and colonoscopy. Dr. Tompkins says he is available to do emergent cases tonight. Since the patient is stable, he's not emergent and would be put on the schedule for tomorrow. Unfortunately, the surgeon scheduler conveyor tomorrow isn't able to do the studies. He says that he can see the patient on Wednesday in the office to get the procedures scheduled. I contacted Dr. Leone, the patient's PCP. He is familiar with the patient. As the patient's hemoglobin is stable, his vital signs are stable, he does not have a history of liver disease, and he's not actively hemorrhaging , he feels the patient can hold his eliquis and be seen outpatient. He declines admission of the patient. He says the patient is very manipulative and wants to be admitted every time he comes to the ED. He says that the patient is very difficult to discharge home from the hospital as well. I discussed discharge home with the patient. He's not happy. He wants admitted. I told him Dr. Leone will evaluate him outpatient on Wednesday. I told him to follow up with Dr. Tompkins and Dr. Leone as discussed, to hold his eliquis, and to return for worsening symptoms. 04/16/18 21:07 04/16/18 23:32 Patient was refusing to leave. Said that if he is discharged he will "threaten to kill" himself to stay overnight. I contacted the charge nurse and warehouse inventory clerk. We will have his home health group follow up with him in the morning. We will also have the paramedics follow up with him tomorrow. Patient is still unhappy. Says he's going to get bug bites when returning to his house and he just needs to stay. I told the patient this was not a reason to stay in the ED. He then said that the paramedics moved all his furniture around when they picked him up and that he couldn't go home because he'll be unable to ambulate around his house secondary to the misplaced furniture. I again told the patient this was not a reason to be admitted. Patient is still unhappy. I re -iterated that Dr. Cai and Yanely are ok with him following up outpatient on Wednesday. I told him to hold the eliquis. - Vital Signs Vital signs: Temp Pulse Resp BP Pulse Ox 98.5 F 104 H 16 124/82 88 L 04/16/18 19:43 04/16/18 19:43 04/16/18 19:43 04/16/18 19:43 04/16/18 19:43 - Laboratory Result Diagrams: 04/16/18 16:52 04/16/18 16:52 Laboratory results interpreted by me: 04/16/18 04/16/18 04/16/18 16:52 16:52 16:52 WBC 3.9 L RBC 4.17 L Hgb 10.9 L Hct 33.1 L MCV 79 L MCH 26.2 L RDW 18.0 H Plt Count 113 L Eosinophils % 6.5 H PT 18.1 H APTT 36.0 H BUN 32 H Creatinine 1.40 H Est GFR (Non-Af Amer) 53 L Total Bilirubin 2.4 H Direct Bilirubin 1.2 H ALT 14 L Urine Protein Urine Urobilinogen 04/16/18 18:20 WBC RBC Hgb Hct MCV MCH RDW Plt Count Eosinophils % PT APTT BUN Creatinine Est GFR (Non-Af Amer) Total Bilirubin Direct Bilirubin ALT Urine Protein 30 H Urine Urobilinogen 4.0 H Discharge - Discharge Clinical Impression: Upper GI bleed Condition: Good Disposition: HOME, SELF-CARE Instructions: Upper Gastrointestinal Bleeding ([facility]) Additional Instructions: Follow up with Dr. Cai and Dr. Leone on Wednesday as discussed. Hold your eliquis until Dr. Leone tells you to resume the medication. Return for worsening symptoms. Referrals: GODFREY TOMPKINS MD [ACTIVE STAFF] - Follow up as needed ZOYA LEONE MD [Primary Care Provider] - Follow up as needed
[2018-04-16 19:04] LABS: INTERNATIONAL RATION (INR) 1.43; PROTHROMBIN TIME 18.1 SEC (11.4-15.4)
--- NOTE | 2018-04-16 20:26 | RADIOLOGY REPORT (SQ) ---
EXAM DESCRIPTION: ACUTE ABDOMEN SERIES COMPLETED DATE/TIME: 04/16/2018 7:38 pm REASON FOR STUDY: abdominal pain COMPARISON: CT abdomen pelvis 04/06/2018 AP chest 03/27/2018 NUMBER OF VIEWS: Three views. TECHNIQUE: Frontal chest, supine abdomen and upright abdomen radiographic images acquired. LIMITATIONS: Morbid obesity FINDINGS: CHEST: Stable marked cardiomegaly. No acute infiltrates. FREE AIR: None. No abnormal gas collections. BOWEL GAS PATTERN: Nonobstructive pattern. No dilated loops or air fluid levels. CALCIFICATIONS: Right upper quadrant calcified gallstones. HARDWARE: None in the abdomen. SOFT TISSUES: No gross mass or suggestion of organomegaly. BONES: No acute fracture. No worrisome bone lesions. OTHER: No other significant finding. IMPRESSION: Massive cardiomegaly. Calcified gallstone in the gallbladder Nonobstructive bowel gas pattern TECHNICAL DOCUMENTATION: JOB ID: [id number] [employer]- All Rights Reserved Reading location - IP/workstation name: [email or web address]
[2018-04-17 01:07] VITALS: BP 145/96
== END 2018-04-17 01:09 | disposition home or self-care (01) ==
LOC: ER 17:16
DX: K92.2 Gastrointestinal hemorrhage, unspecified (principal); R04.0 Epistaxis; R19.5 Other fecal abnormalities; Z79.01 Long term (current) use of anticoagulants; R10.9 Unspecified abdominal pain; I25.10 Atherosclerotic heart disease of native coronary artery without angina pectoris; I10 Essential (primary) hypertension; J44.9 Chronic obstructive pulmonary disease, unspecified
CPT/HCPCS: 36415; 74022; 80053; 81001; 82272; 83690; 85025; 85610; 85730; 99284

== ENCOUNTER 2018-06-24 11:19 | Inpatient (IN) | payer OTHER, MEDICARE, MEDICAID ==
--- NOTE | 2018-06-24 12:41 | ER Document Report ---
ED General - General Chief Complaint: Shortness Of Breath Stated Complaint: SHORT OF BREATH Time Seen by Provider: 06/24/18 12:37 Notes: Patient is a 57-year-old male with CHF and atrial fibrillation that presents to the emergency department for chief complaint of shortness of breath and worsening swelling. Patient states that over the past few weeks he has been having increased work of breathing, however is been significantly worse the last few days, has had significant dyspnea on exertion, he has significant swelling in his lower extremities, and swelling of his testicles and abdomen. He also states he has been having a home health aide help with an ulcer on his right leg, they have been wrapped, and they are due to be changed today. He has some pain associated with that which he currently rates as a 2 out of 10, aching and occasionally sharp sensation in the right leg. Today he was at the [place] [facility], and they are concerned about how he appeared in his condition, and transferred him to the emergency department. Past Medical History: CHF, atrial fibrillation, hypertension, gastritis, colitis Past Surgical History: Tonsillectomy, tooth extractions Social History: Former smoker, denies current alcohol or drug use. Family History: Reviewed and noncontributory for presenting illness Allergies: Reviewed, see documented allergy list. REVIEW OF SYSTEMS: Other than noted above, the 12 point review of systems was reviewed with the patient and were negative, all pertinent findings are included in the HPI. PHYSICAL EXAMINATION: Vital signs reviewed, nursing noted reviewed. GENERAL: Chronically ill-appearing male in mild to moderate respiratory distress , increased work of breathing HEAD: Atraumatic, normocephalic. EYES: Eyes appear normal, extraocular movements intact, sclera anicteric, conjunctiva are normal. ENT: nares patent, oropharynx clear without exudates. Moist mucous membranes. NECK: Normal range of motion, supple without lymphadenopathy LUNGS: Breath sounds severely diminished on exam particularly at the bases, with crackles noted, increased work of breathing HEART: Heart rate normal, irregular rhythm ABDOMEN: Obese, nontender, anasarca noted, no fluid wave, ventral midline hernia in the upper abdomen, nontender to palpate, and reducible. Rebound, guarding or rigidity EXTREMITIES: Severe bilateral lower extremity peripheral edema, 4+ pitting, bilateral wound dressings are currently on the patient's lower extremities. Nontender. NEUROLOGICAL: No focal neurological deficits. Moves all extremities spontaneously Motor and sensory grossly intact on exam. PSYCH: She is mildly anxious, but answering questions appropriately. SKIN: Warm, Dry, normal turgor, TRAVEL OUTSIDE OF THE [place] IN LAST 30 DAYS: No - Related Data Allergies/Adverse Reactions: No Known Allergies Allergy (Verified 01/31/18 16:08) Past Medical History - Social History Smoking Status: Former Smoker Family History: CAD, COPD, CVA, DM, Hypertension - Past Medical History Cardiac Medical History: Reports: Hx Atrial Fibrillation, Hx Congestive Heart Failure, Hx Coronary Artery Disease, Hx Hypercholesterolemia, Hx Hypertension, Hx Peripheral Vascular Disease, Hx Pulmonary Embolism Pulmonary Medical History: Reports: Hx COPD, Hx Sleep Apnea Renal/ Medical History: Reports: Hx Renal Insufficiency. Denies: Hx Peritoneal Dialysis GI Medical History: Reports: Hx Gastritis, Hx Ulcerative Colitis Musculoskeletal Medical History: Reports Hx Arthritis Psychiatric Medical History: Denies: Hx Depression Past Surgical History: Reports: Hx Tonsillectomy, Other - Tooth extraction - Immunizations Hx Diphtheria, Pertussis, Tetanus Vaccination: No Physical Exam - Vital signs Vitals: Temp 98.1 F 06/24/18 11:20 Course - Re-evaluation Re-evalutation: Patient seen and examined vital signs reviewed. Laboratory data and imaging were ordered as appropriate for the patient's presenting symptoms and complaint, with consideration of any critical or life threatening conditions that may be associated with their obtained history and exam as noted above. Patient was treated with IV Lasix 40 mg, patient was on supplemental oxygen initially, but he is continued to have increased work of breathing despite 6 L of oxygen, therefore CPAP was ordered and patient was started on CPAP, which she felt improved with. Results were reviewed when available and demonstrated chest x-ray, pulmonary edema, pleural effusions, The patient was re-evaluated and was improved after being placed on CPAP Evaluation was most consistent with acute on chronic CHF exacerbation, with hypoxia, pulmonary edema, and fluid overload and anasarca Results were discussed with the patient at this point after careful consideration I feel that that patient should be admitted to the hospital. This was discussed with the patient that it is in the best interest for their care to be admitted for further evaluation and management. Patient agreed with this plan of care. A call was placed to the admitted physician, Dr. Tyler who graciously accepted the patient onto their service. *Note is created using voice recognition software and may contain spelling, syntax or grammatical errors. Laboratory 06/24/18 06/24/18 06/24/18 13:10 13:58 13:58 WBC 4.0 RBC 4.11 L Hgb 10.3 L Hct 32.9 L MCV 80 MCH 25.0 L MCHC 31.3 L RDW 18.4 H Plt Count 162 Seg Neutrophils % 64.7 Lymphocytes % 14.8 Monocytes % 13.6 H Eosinophils % 5.4 Basophils % 1.5 Absolute Neutrophils 2.6 Absolute Lymphocytes 0.6 Absolute Monocytes 0.5 Absolute Eosinophils 0.2 Absolute Basophils 0.1 PT INR APTT Sodium 144.9 Potassium 3.8 Chloride 108 H Carbon Dioxide 26 Anion Gap 11 BUN 30 H Creatinine 1.66 H Est GFR ( Amer) 52 L Est GFR (Non-Af Amer) 43 L Glucose 85 Calcium 8.8 Phosphorus Magnesium Total Bilirubin 1.9 H Direct Bilirubin 0.8 H Neonat Total Bilirubin Not Reportable Neonat Direct Bilirubin Not Reportable Neonat Indirect Bili Not Reportable AST 15 L ALT 14 L Alkaline Phosphatase 66 Ammonia Creatine Kinase CK-MB (CK-2) Troponin I 0.021 NT-Pro-B Natriuret Pep 7730 H Total Protein 7.6 Albumin 3.6 Amylase Lipase TSH Free T4 Urine Color Urine Appearance Urine pH Ur Specific [place] Urine Protein Urine Glucose (UA) Urine Ketones Urine Blood Urine Nitrite Urine Bilirubin Urine Urobilinogen Ur Leukocyte Esterase Urine WBC (Auto) Urine RBC (Auto) U Hyaline Cast (Auto) Urine Bacteria (Auto) Squamous Epi Cells Auto Urine Mucus (Auto) Urine Ascorbic Acid Urine Opiates Screen Urine Methadone Screen Ur Barbiturates Screen Ur Phencyclidine Scrn Ur Amphetamines Screen U Benzodiazepines Scrn Urine Cocaine Screen U Marijuana (THC) Screen 06/24/18 06/24/18 06/24/18 19:20 19:20 19:20 WBC RBC Hgb Hct MCV MCH MCHC RDW Plt Count Seg Neutrophils % Lymphocytes % Monocytes % Eosinophils % Basophils % Absolute Neutrophils Absolute Lymphocytes Absolute Monocytes Absolute Eosinophils Absolute Basophils PT INR APTT Sodium Potassium Chloride Carbon Dioxide Anion Gap BUN Creatinine Est GFR ( Amer) Est GFR (Non-Af Amer) Glucose Calcium Phosphorus 3.8 Magnesium 2.0 Total Bilirubin Direct Bilirubin Neonat Total Bilirubin Neonat Direct Bilirubin Neonat Indirect Bili AST ALT Alkaline Phosphatase Ammonia Creatine Kinase CK-MB (CK-2) Troponin I 0.019 NT-Pro-B Natriuret Pep 7630 H Total Protein Albumin Amylase 89 Lipase 66.3 TSH Free T4 Urine Color Urine Appearance Urine pH Ur Specific [place] Urine Protein Urine Glucose (UA) Urine Ketones Urine Blood Urine Nitrite Urine Bilirubin Urine Urobilinogen Ur Leukocyte Esterase Urine WBC (Auto) Urine RBC (Auto) U Hyaline Cast (Auto) Urine Bacteria (Auto) Squamous Epi Cells Auto Urine Mucus (Auto) Urine Ascorbic Acid Urine Opiates Screen Urine Methadone Screen Ur Barbiturates Screen Ur Phencyclidine Scrn Ur Amphetamines Screen U Benzodiazepines Scrn Urine Cocaine Screen U Marijuana (THC) Screen 06/24/18 06/24/18 06/24/18 19:20 21:20 21:20 WBC RBC Hgb Hct MCV MCH MCHC RDW Plt Count Seg Neutrophils % Lymphocytes % Monocytes % Eosinophils % Basophils % Absolute Neutrophils Absolute Lymphocytes Absolute Monocytes Absolute Eosinophils Absolute Basophils PT 18.8 H INR 1.50 APTT 36.7 H Sodium Potassium Chloride Carbon Dioxide Anion Gap BUN Creatinine Est GFR ( Amer) Est GFR (Non-Af Amer) Glucose Calcium Phosphorus Magnesium Total Bilirubin Direct Bilirubin Neonat Total Bilirubin Neonat Direct Bilirubin Neonat Indirect Bili AST ALT Alkaline Phosphatase Ammonia 15.9 Creatine Kinase CK-MB (CK-2) Troponin I NT-Pro-B Natriuret Pep Total Protein Albumin Amylase Lipase TSH 1.91 Free T4 1.56 Urine Color Urine Appearance Urine pH Ur Specific [place] Urine Protein Urine Glucose (UA) Urine Ketones Urine Blood Urine Nitrite Urine Bilirubin Urine Urobilinogen Ur Leukocyte Esterase Urine WBC (Auto) Urine RBC (Auto) U Hyaline Cast (Auto) Urine Bacteria (Auto) Squamous Epi Cells Auto Urine Mucus (Auto) Urine Ascorbic Acid Urine Opiates Screen Urine Methadone Screen Ur Barbiturates Screen Ur Phencyclidine Scrn Ur Amphetamines Screen U Benzodiazepines Scrn Urine Cocaine Screen U Marijuana (THC) Screen 06/25/18 06/25/18 06/25/18 01:45 01:45 06:24 WBC RBC Hgb Hct MCV MCH MCHC RDW Plt Count Seg Neutrophils % Lymphocytes % Monocytes % Eosinophils % Basophils % Absolute Neutrophils Absolute Lymphocytes Absolute Monocytes Absolute Eosinophils Absolute Basophils PT INR APTT Sodium Potassium Chloride Carbon Dioxide Anion Gap BUN Creatinine Est GFR ( Amer) Est GFR (Non-Af Amer) Glucose Calcium Phosphorus Magnesium Total Bilirubin Direct Bilirubin Neonat Total Bilirubin Neonat Direct Bilirubin Neonat Indirect Bili AST ALT Alkaline Phosphatase Ammonia Creatine Kinase 68 CK-MB (CK-2) 0.40 Troponin I 0.020 NT-Pro-B Natriuret Pep Total Protein Albumin Amylase Lipase TSH Free T4 Urine Color YELLOW Urine Appearance SLIGHTLY-CLOUDY Urine pH 5.0 Ur Specific [place] 1.010 Urine Protein NEGATIVE Urine Glucose (UA) NEGATIVE Urine Ketones NEGATIVE Urine Blood NEGATIVE Urine Nitrite NEGATIVE Urine Bilirubin NEGATIVE Urine Urobilinogen NEGATIVE Ur Leukocyte Esterase NEGATIVE Urine WBC (Auto) 3 Urine RBC (Auto) 6 U Hyaline Cast (Auto) 4 Urine Bacteria (Auto) TRACE Squamous Epi Cells Auto 2 Urine Mucus (Auto) RARE Urine Ascorbic Acid NEGATIVE Urine Opiates Screen Urine Methadone Screen Ur Barbiturates Screen Ur Phencyclidine Scrn Ur Amphetamines Screen U Benzodiazepines Scrn Urine Cocaine Screen U Marijuana (THC) Screen 06/25/18 06/25/18 06/25/18 06:24 07:15 07:15 WBC RBC Hgb Hct MCV MCH MCHC RDW Plt Count Seg Neutrophils % Lymphocytes % Monocytes % Eosinophils % Basophils % Absolute Neutrophils Absolute Lymphocytes Absolute Monocytes Absolute Eosinophils Absolute Basophils PT INR APTT Sodium Potassium Chloride Carbon Dioxide Anion Gap BUN Creatinine Est GFR ( Amer) Est GFR (Non-Af Amer) Glucose Calcium Phosphorus Magnesium Total Bilirubin Direct Bilirubin Neonat Total Bilirubin Neonat Direct Bilirubin Neonat Indirect Bili AST ALT Alkaline Phosphatase Ammonia Creatine Kinase 63 CK-MB (CK-2) 0.35 Troponin I 0.021 NT-Pro-B Natriuret Pep Total Protein Albumin Amylase Lipase TSH Free T4 Urine Color Urine Appearance Urine pH Ur Specific [place] Urine Protein Urine Glucose (UA) Urine Ketones Urine Blood Urine Nitrite Urine Bilirubin Urine Urobilinogen Ur Leukocyte Esterase Urine WBC (Auto) Urine RBC (Auto) U Hyaline Cast (Auto) Urine Bacteria (Auto) Squamous Epi Cells Auto Urine Mucus (Auto) Urine Ascorbic Acid Urine Opiates Screen NEGATIVE Urine Methadone Screen NEGATIVE Ur Barbiturates Screen NEGATIVE Ur Phencyclidine Scrn NEGATIVE Ur Amphetamines Screen NEGATIVE U Benzodiazepines Scrn NEGATIVE Urine Cocaine Screen NEGATIVE U Marijuana (THC) Screen NEGATIVE 06/25/18 06/25/18 07:15 07:15 WBC 3.4 L RBC 3.81 L Hgb 9.8 L Hct 30.0 L MCV 79 L MCH 25.6 L MCHC 32.5 RDW 17.7 H Plt Count 154 Seg Neutrophils % 62.2 Lymphocytes % 16.4 Monocytes % 13.9 H Eosinophils % 6.5 H Basophils % 1.0 Absolute Neutrophils 2.1 Absolute Lymphocytes 0.6 Absolute Monocytes 0.5 Absolute Eosinophils 0.2 Absolute Basophils 0.0 PT INR APTT Sodium 142.4 Potassium 3.9 Chloride 107 Carbon Dioxide 27 Anion Gap 8 BUN 30 H Creatinine 1.72 H Est GFR ( Amer) 50 L Est GFR (Non-Af Amer) 41 L Glucose 98 Calcium 8.8 Phosphorus Magnesium Total Bilirubin 1.6 H Direct Bilirubin 0.8 H Neonat Total Bilirubin Not Reportable Neonat Direct Bilirubin Not Reportable Neonat Indirect Bili Not Reportable AST 15 L ALT 8 L Alkaline Phosphatase 58 Ammonia Creatine Kinase CK-MB (CK-2) Troponin I NT-Pro-B Natriuret Pep Total Protein 7.3 Albumin 3.4 L Amylase Lipase TSH Free T4 Urine Color Urine Appearance Urine pH Ur Specific [place] Urine Protein Urine Glucose (UA) Urine Ketones Urine Blood Urine Nitrite Urine Bilirubin Urine Urobilinogen Ur Leukocyte Esterase Urine WBC (Auto) Urine RBC (Auto) U Hyaline Cast (Auto) Urine Bacteria (Auto) Squamous Epi Cells Auto Urine Mucus (Auto) Urine Ascorbic Acid Urine Opiates Screen Urine Methadone Screen Ur Barbiturates Screen Ur Phencyclidine Scrn Ur Amphetamines Screen U Benzodiazepines Scrn Urine Cocaine Screen U Marijuana (THC) Screen Chest X-Ray 06/24/18 12:40 IMPRESSION: Gross cardiomegaly with right basilar atelectasis, scarring, and/ or pleural effusion, similar to prior examination. This may be further evaluated by PA and lateral radiographs or CT if desired. - Vital Signs Vital signs: Temp Pulse Resp BP Pulse Ox 98.5 F 110 H 20 118/65 99 06/25/18 08:40 06/25/18 08:40 06/25/18 08:40 06/25/18 08:40 06/25/18 08:40 - Laboratory Result Diagrams: 06/25/18 07:15 06/25/18 07:15 Laboratory results interpreted by me: 06/24/18 06/24/18 06/24/18 13:10 13:58 13:58 RBC 4.11 L Hgb 10.3 L Hct 32.9 L MCH 25.0 L MCHC 31.3 L RDW 18.4 H Monocytes % 13.6 H Chloride 108 H BUN 30 H Creatinine 1.66 H Est GFR ( Amer) 52 L Est GFR (Non-Af Amer) 43 L Total Bilirubin 1.9 H Direct Bilirubin 0.8 H AST 15 L ALT 14 L NT-Pro-B Natriuret Pep 7730 H - EKG Interpretation by Me Additional EKG results interpreted by me: EKG demonstrates atrial fibrillation with a ventricular rate of 99 bpm, left axis deviation, QTC 488 ms, occasional PVC, no evidence of acute ischemia on this EKG. No prior available at this time. Critical Care Note - Critical Care Note Total time excluding time spent on procedures (mins): 40 Comments: Critical care time minutes exclusive from separate billable procedures for a patient requiring complex medical decision making, and high potential for clinical deterioration. In a patient with acute exacerbation of heart failure with hypoxia requiring CPAP and close monitoring. Time spent obtaining history from patient or surrogate, discussions with consultants, development of treatment plan with patient or surrogate, evaluation of patient's response to treatment, examination of patient, ordering and performing treatments and interventions, ordering and review of laboratory studies, re-evaluation of patient's condition, ordering and review of radiographic studies and review of old charts Discharge - Discharge Clinical Impression: Hypoxia, Lower extremity edema, Anasarca, Renal insufficiency Acute exacerbation of CHF (congestive heart failure) Qualifiers: Heart failure type: systolic Qualified Code(s): I50.23 - Acute on chronic systolic (congestive) heart failure Pulmonary edema Qualifiers: Chronicity: acute Qualified Code(s): J81.0 - Acute pulmonary edema Condition: Fair Disposition: ADMITTED INPATIENT Admitting Provider: [facility] Admitted: [facility]
[2018-06-24] MEDS ORDERED: FUROSEMIDE INJ/PF 40 MG/4 ML SDV IV ONE (13:09)
--- NOTE | 2018-06-24 13:20 | RADIOLOGY REPORT (SQ) ---
EXAM DESCRIPTION: CHEST SINGLE VIEW COMPLETED DATE/TIME: 06/24/2018 1:06 pm REASON FOR STUDY: short of breath COMPARISON: 10/15/2016 EXAM PARAMETERS: NUMBER OF VIEWS: One view. TECHNIQUE: Single frontal radiographic view of the chest acquired. RADIATION DOSE: NA LIMITATIONS: None. FINDINGS: LUNGS AND PLEURA: Right basilar atelectasis, scarring, and/or pleural effusion, similar to prior examination. MEDIASTINUM AND HILAR STRUCTURES: No masses. Contour normal. HEART AND VASCULAR STRUCTURES: Gross cardiomegaly. BONES: No acute findings. HARDWARE: None in the chest. OTHER: No other significant finding. IMPRESSION: Gross cardiomegaly with right basilar atelectasis, scarring, and/or pleural effusion, si milar to prior examination. This may be further evaluated by PA and lateral radiographs or CT if shaheed ired. TECHNICAL DOCUMENTATION: JOB ID: [id number] [employer]- All Rights Reserved Reading location - IP/workstation name: [email or web address]
[2018-06-24 13:26] LABS: ABSOLUTE BASOPHILS # (AUTO) 0.1 10^3/uL (0.0-0.2); ABSOLUTE EOSINOPHILS # (AUTO) 0.2 10^3/uL (0.0-0.6); ABSOLUTE LYMPHOCYTES (AUTO) 0.6 10^3/uL (0.5-4.7); ABSOLUTE MONOCYTES (AUTO) 0.5 10^3/uL (0.1-1.4); ABSOLUTE NEUT (AUTO) 2.6 10^3/uL (1.7-8.2); BASOPHILS % (AUTO) 1.5 % (0-2); EOSINOPHILS % (AUTO) 5.4 % (0-6); HEMATOCRIT 32.9 % (37.9-51.0); HEMOGLOBIN 10.3 g/dL (13.5-17.0); LYMPHOCYTES % (AUTO) 14.8 % (13-45); MEAN CORPUSCULAR HGB CONC 31.3 g/dL (32.0-36.0); MEAN CORPUSCULAR VOLUME 80 fl (80-97); MONOCYTES % (AUTO) 13.6 % (3-13); PLATELET COUNT 162 10^3/uL (150-450); RED BLOOD COUNT 4.11 10^6/uL (4.35-5.55); RED CELL DISTRIBUTION WIDTH 18.4 % (11.5-14.0); SEGMENTED NEUTROPHILS % (AUTO) 64.7 % (42-78); TOTAL CELLS COUNTED % (AUTO) 100 %
[2018-06-24 14:22] LABS: ALANINE AMINOTRANSFERASE 14 U/L (21-72); ALBUMIN 3.6 g/dL (3.5-5.0); ALKALINE PHOSPHATASE 66 U/L (38-126); ANION GAP 11 (5-19); ASPARTATE AMINO TRANSFERASE 15 U/L (17-59); BILIRUBIN,DIRECT 0.8 mg/dL (0.0-0.4); BILIRUBIN,TOTAL 1.9 mg/dL (0.2-1.3); BLOOD UREA NITROGEN 30 mg/dL (7-20); CALCIUM 8.8 mg/dL (8.4-10.2); CARBON DIOXIDE 26 mmol/L (22-30); CHLORIDE 108 mmol/L (98-107); GLUCOSE 85 mg/dL (75-110); POTASSIUM 3.8 mmol/L (3.6-5.0); SODIUM 144.9 mmol/L (137-145); TOTAL PROTEIN 7.6 g/dL (6.3-8.2)
[2018-06-24 14:34] LABS: TROPONIN I 0.021 ng/mL
[2018-06-24] MEDS ORDERED: (PENDING PHARMACY ID) (Potassium Chloride [Klor-Con M20] 20 MEQ) PO SCH (19:45)
[2018-06-24 20:01] LABS: LIPASE 66.3 U/L (23-300); PHOSPHORUS 3.8 mg/dL (2.5-4.5)
[2018-06-24 20:17] LABS: FREE T4 (FREE THYROXINE) 1.56 ng/dL (0.78-2.19)
[2018-06-24 20:31] LABS: THYROID STIMULATING HORMONE 1.91 uIU/mL (0.47-4.68)
--- NOTE | 2018-06-24 21:37 | PDOC H&P ---
History of Present Illness Admission Date/PCP: 06/24/18 15:25 ZOYA LEONE MD History of Present Illness: ELEONORA SHEFFIELD is a 57 year old male,Patient with history of chronic diastolic heart failure, morbid obesity, nephrotic syndrome,he present with generalized anasarca This has been ongoing problem for this patient, he has tremendous anasarca, the abdominal wall edema is so severe that the abdomen is literally hanging down on the left side of the abdomen. Overall prognosis is extremely poor in this patient I have advised him in the past to consider bariatric surgery is the only hope for any meaningful survival in this patient. Usually he will present in this fashion with anasarca Past Medical History Cardiac Medical History: Reports: Atrial Fibrillation, Congestive Heart Failure, Coronary Artery Disease, Hyperlipidema, Hypertension, Peripheral Vascular Disease, Pulmonary Embolism Pulmonary Medical History: Reports: Chronic Obstructive Pulmonary Disease (COPD), Sleep Apnea GI Medical History: Reports: Ulcerative Colitis Musculoskeltal Medical History: Reports: Arthritis Psychiatric Medical History: Denies: Depression Past Surgical History Past Surgical History: Reports: Tonsillectomy, Other - Tooth extraction Social History Lives with: Alone Smoking Status: Never Smoker Frequency of Alcohol Use: None Hx Recreational Drug Use: No Drugs: None Hx Prescription Drug Abuse: No Family History Family History: CAD, COPD, CVA, DM, Hypertension Parental Family History Reviewed: Yes Children Family History Reviewed: Yes Sibling(s) Family History Reviewed.: Yes Medication/Allergy Home Medications: RX: Apixaban [Eliquis 2.5 mg Tablet] 2.5 mg PO Q12 03/28/18 RX: Metoprolol Tartrate [Lopressor 25 mg Tablet] 25 mg PO DAILY 03/28/18 RX: Simvastatin [Zocor 10 mg Tablet] 10 mg PO QHS 03/28/18 RX: Torsemide [Demadex 20 mg Tablet] 20 mg PO Q12 03/28/18 RX: Potassium Chloride [Klor-Con M20] 20 meq PO DAILY 06/24/18 RX: Acetaminophen [Tylenol 325 mg Tablet] 650 mg PO Q4HP PRN tablet 07/13/18 Allergies/Adverse Reactions: No Known Allergies Allergy (Verified 01/31/18 16:08) Review of Systems Constitutional: PRESENT: anorexia, weight gain Eyes: ABSENT: visual disturbances Ears: ABSENT: hearing changes Cardiovascular: PRESENT: dyspnea on exertion, edema Respiratory: PRESENT: dyspnea Gastrointestinal: ABSENT: abdominal pain, constipation, diarrhea, hematemesis, hematochezia, nausea, vomiting Genitourinary: ABSENT: dysuria, hematuria Musculoskeletal: ABSENT: joint swelling Integumentary: ABSENT: rash, wounds Neurological: ABSENT: abnormal gait, abnormal speech, confusion, dizziness, focal weakness, syncope Psychiatric: ABSENT: anxiety, depression, homidical ideation, suicidal ideation Endocrine: ABSENT: cold intolerance, heat intolerance, menstrual abnormalities, polydipsia, polyuria Hematologic/Lymphatic: ABSENT: easy bleeding, easy bruising, lymphadenopathy Physical Exam Vital Signs: Temp Pulse Resp BP Pulse Ox 98.1 F 24 H 102/76 100 06/24/18 11:20 06/24/18 19:01 06/24/18 19:01 06/24/18 19:00 General appearance: PRESENT: mild distress, morbidly obese Eye exam: PRESENT: PERRLA Respiratory exam: PRESENT: rales Cardiovascular exam: PRESENT: +S1, +S2 GI/Abdominal exam: PRESENT: distended, soft Neurological exam: PRESENT: alert Results Laboratory Results: 06/24/18 06/24/18 19:20 19:20 Phosphorus 3.8 Magnesium 2.0 Amylase 89 Lipase 66.3 TSH 1.91 Free T4 1.56 06/24/18 06/24/18 19:20 19:20 Troponin I 0.019 NT-Pro-B Natriuret Pep 7630 H Impressions: Chest X-Ray 06/24/18 12:40 IMPRESSION: Gross cardiomegaly with right basilar atelectasis, scarring, and/or pleural effusion, similar to prior examination. This may be further evaluated by PA and lateral radiographs or CT if desired. Assessment & Plan - Diagnosis (1) Acute diastolic heart failure Is this a current diagnosis for this admission?: Yes Plan: He has acute diastolic on superimposed chronic diastolic heart failure, is admitted for intravenous diuretic therapy (2) Anasarca Is this a current diagnosis for this admission?: Yes Plan: (3) Chronic atrial fibrillation Is this a current diagnosis for this admission?: Yes Plan: Continue anticoagulant with Eliquis
[2018-06-24] MEDS: IPRATROPIUM/ALBUTEROL 0.5-2.5 MG/3 ML AMPUL NEB SCH ×2 (21:38→22:51)
[2018-06-24 22:00] LABS: PROTHROMBIN TIME 18.8 SEC (11.4-15.4)
[2018-06-24 22:01] LABS: PARTIAL THROMBOPLASTIN TIME 36.7 SEC (23.5-35.8)
[2018-06-24] MEDS: POTASSIUM CHLORIDE 10 MEQ CAPSULE.ER PO SCH (22:05)
[2018-06-24] MEDS: METOPROLOL TARTRATE 25 MG TABLET PO SCH (22:06)
[2018-06-24] MEDS: SIMVASTATIN 10 MG TABLET PO SCH (22:06)
[2018-06-24] MEDS: SODIUM CHLORIDE NASAL SPRAY 44 ML NASL SCH (22:06)
[2018-06-24] MEDS: NORMAL SALINE 250 ML with FUROSEMIDE 250 MG IV PRN ×2 (22:06)
[2018-06-24] MEDS: APIXABAN 2.5 MG TABLET PO SCH (22:06)
[2018-06-25 02:18] LABS: CREATINE KINASE MB 0.4 ng/mL (<4.55); TROPONIN I 0.02 ng/mL
[2018-06-25] MEDS: IPRATROPIUM/ALBUTEROL 0.5-2.5 MG/3 ML AMPUL NEB SCH ×8 (02:47→23:50)
[2018-06-25 06:39] LABS: APPEARANCE,URINE SLIGHTLY-CLOUDY; BILIRUBIN,URINE NEGATIVE (NEGATIVE); COLOR,URINE YELLOW; GLUCOSE, URINE NEGATIVE (NEGATIVE); KETONES,URINE NEGATIVE (NEGATIVE); LEUKOCYTE ESTERASE,URINE NEGATIVE (NEGATIVE); NITRITE,URINE NEGATIVE (NEGATIVE); PROTEIN,URINE NEGATIVE (NEGATIVE); UROBILINOGEN,URINE NEGATIVE mg/dL (<2.0)
[2018-06-25 06:55] LABS: URINE AMPHETAMINES SCREEN NEGATIVE; URINE BARBITURATES SCREEN NEGATIVE; URINE BENZODIAZEPINES SCREEN NEGATIVE; URINE COCAINE SCREEN NEGATIVE; URINE MARIJUANA (THC) SCREEN NEGATIVE; URINE METHADONE SCREEN NEGATIVE; URINE PHENCYCLIDINE SCREEN NEGATIVE
--- NOTE | 2018-06-25 07:49 | EKG REPORT ---
SEVERITY:- ABNORMAL ECG - ATRIAL FIBRILLATION PAIRED VENTRICULAR PREMATURE COMPLEXES INFERIOR INFARCT, OLD CONSIDER ANTERIOR INFARCT LATERAL LEADS ARE ALSO INVOLVED BORDERLINE PROLONGED QT INTERVAL : Confirmed by: Karen Worthy MD 25-Jun-2018 07:49:11
[2018-06-25 07:57] LABS: ALANINE AMINOTRANSFERASE 8 U/L (21-72); ALBUMIN 3.4 g/dL (3.5-5.0); ALKALINE PHOSPHATASE 58 U/L (38-126); ANION GAP 8 (5-19); ASPARTATE AMINO TRANSFERASE 15 U/L (17-59); BILIRUBIN,DIRECT 0.8 mg/dL (0.0-0.4); BILIRUBIN,TOTAL 1.6 mg/dL (0.2-1.3); BLOOD UREA NITROGEN 30 mg/dL (7-20); CALCIUM 8.8 mg/dL (8.4-10.2); CARBON DIOXIDE 27 mmol/L (22-30); CHLORIDE 107 mmol/L (98-107); GLUCOSE 98 mg/dL (75-110); POTASSIUM 3.9 mmol/L (3.6-5.0); SODIUM 142.4 mmol/L (137-145); TOTAL PROTEIN 7.3 g/dL (6.3-8.2)
[2018-06-25 08:14] LABS: ABSOLUTE EOSINOPHILS # (AUTO) 0.2 10^3/uL (0.0-0.6); ABSOLUTE LYMPHOCYTES (AUTO) 0.6 10^3/uL (0.5-4.7); ABSOLUTE MONOCYTES (AUTO) 0.5 10^3/uL (0.1-1.4); ABSOLUTE NEUT (AUTO) 2.1 10^3/uL (1.7-8.2); EOSINOPHILS % (AUTO) 6.5 % (0-6); HEMOGLOBIN 9.8 g/dL (13.5-17.0); LYMPHOCYTES % (AUTO) 16.4 % (13-45); MEAN CORPUSCULAR HEMOGLOBIN 25.6 pg (27.0-33.4); MEAN CORPUSCULAR HGB CONC 32.5 g/dL (32.0-36.0); MEAN CORPUSCULAR VOLUME 79 fl (80-97); MONOCYTES % (AUTO) 13.9 % (3-13); PLATELET COUNT 154 10^3/uL (150-450); RED BLOOD COUNT 3.81 10^6/uL (4.35-5.55); RED CELL DISTRIBUTION WIDTH 17.7 % (11.5-14.0); SEGMENTED NEUTROPHILS % (AUTO) 62.2 % (42-78); TOTAL CELLS COUNTED % (AUTO) 100 %; WHITE BLOOD COUNT 3.4 10^3/uL (4.0-10.5)
[2018-06-25 08:15] LABS: CREATINE KINASE MB 0.35 ng/mL (<4.55); TROPONIN I 0.021 ng/mL
[2018-06-25] MEDS: POTASSIUM CHLORIDE 10 MEQ CAPSULE.ER PO SCH (09:10)
[2018-06-25] MEDS: APIXABAN 2.5 MG TABLET PO SCH ×2 (09:10→22:29)
[2018-06-25] MEDS: SODIUM CHLORIDE NASAL SPRAY 44 ML NASL SCH ×2 (09:10→22:32)
[2018-06-25] MEDS: METOPROLOL TARTRATE 25 MG TABLET PO SCH (09:10)
--- NOTE | 2018-06-25 12:38 | PDOC PROGRESS REPORT ---
Subjective Progress Note for:: 06/25/18 Subjective:: Patient is concern about constipation. No bowel movement x 1 day. Usually move his bowel 3 x / day. No abdominal pain, nausea, or vomiting. No chest pain or difficulty with breathing. Remain on IV Lasix therapy. Currently not on fluid restriction. Reason For Visit: HYPOXIA,PULMONARY EDEMA, EDEMA OF LOWE EXTREMITY, Physical Exam Vital Signs: Temp Pulse Resp BP Pulse Ox 98.5 F 87 16 118/65 100 06/25/18 10:52 06/25/18 11:28 06/25/18 11:28 06/25/18 10:52 06/25/18 11:28 Intake & Output 06/24/18 06/25/18 06/26/18 06:59 06:59 06:59 Weight 202.5 kg General appearance: PRESENT: morbidly obese Head exam: PRESENT: atraumatic, normocephalic Eye exam: PRESENT: conjunctiva pink, EOMI, PERRLA. ABSENT: scleral icterus Ear exam: PRESENT: normal external ear exam Mouth exam: PRESENT: moist Respiratory exam: PRESENT: clear to auscultation dell, decreased breath sounds - at lung bases Cardiovascular exam: PRESENT: RRR, +S1, +S2. ABSENT: diastolic murmur, rubs, systolic murmur Vascular exam: PRESENT: pallor GI/Abdominal exam: PRESENT: hernia - ventral hernia, normal bowel sounds, soft, other - severe abdominal wall edema. ABSENT: distended, guarding, mass, organolmegaly, rebound, tenderness Rectal exam: PRESENT: deferred Gentrourinary exam: PRESENT: scrotal swelling Extremities exam: PRESENT: pedal edema - chronic with venous stasis changes Musculoskeletal exam: PRESENT: deformity - related to multiple joints involvement with arthritis Neurological exam: PRESENT: alert, awake, oriented to person, oriented to place , oriented to time, oriented to situation, CN II-XII grossly intact. ABSENT: motor sensory deficit Psychiatric exam: PRESENT: appropriate affect, normal mood. ABSENT: homicidal ideation, suicidal ideation Skin exam: PRESENT: dry, warm, other - chronic lower extremities ulcers with OSKAR wrap dressing Results Laboratory Results: 06/25/18 07:15 06/25/18 07:15 06/24/18 06/24/18 06/24/18 19:20 19:20 21:20 WBC RBC Hgb Hct MCV MCH MCHC RDW Plt Count Seg Neutrophils % Lymphocytes % Monocytes % Eosinophils % Basophils % Absolute Neutrophils Absolute Lymphocytes Absolute Monocytes Absolute Eosinophils Absolute Basophils Sodium Potassium Chloride Carbon Dioxide Anion Gap BUN Creatinine Est GFR ( Amer) Est GFR (Non-Af Amer) Glucose Calcium Phosphorus 3.8 Magnesium 2.0 Total Bilirubin AST ALT Alkaline Phosphatase Ammonia 15.9 Total Protein Albumin Amylase 89 Lipase 66.3 TSH 1.91 Free T4 1.56 Urine Color Urine Appearance Urine pH Ur Specific [place] Urine Protein Urine Glucose (UA) Urine Ketones Urine Blood Urine Nitrite Ur Leukocyte Esterase Urine WBC (Auto) Urine RBC (Auto) 06/25/18 06/25/18 06/25/18 06:24 07:15 07:15 WBC 3.4 L RBC 3.81 L Hgb 9.8 L Hct 30.0 L MCV 79 L MCH 25.6 L MCHC 32.5 RDW 17.7 H Plt Count 154 Seg Neutrophils % 62.2 Lymphocytes % 16.4 Monocytes % 13.9 H Eosinophils % 6.5 H Basophils % 1.0 Absolute Neutrophils 2.1 Absolute Lymphocytes 0.6 Absolute Monocytes 0.5 Absolute Eosinophils 0.2 Absolute Basophils 0.0 Sodium 142.4 Potassium 3.9 Chloride 107 Carbon Dioxide 27 Anion Gap 8 BUN 30 H Creatinine 1.72 H Est GFR ( Amer) 50 L Est GFR (Non-Af Amer) 41 L Glucose 98 Calcium 8.8 Phosphorus Magnesium Total Bilirubin 1.6 H AST 15 L ALT 8 L Alkaline Phosphatase 58 Ammonia Total Protein 7.3 Albumin 3.4 L Amylase Lipase TSH Free T4 Urine Color YELLOW Urine Appearance SLIGHTLY-CLOUDY Urine pH 5.0 Ur Specific [place] 1.010 Urine Protein NEGATIVE Urine Glucose (UA) NEGATIVE Urine Ketones NEGATIVE Urine Blood NEGATIVE Urine Nitrite NEGATIVE Ur Leukocyte Esterase NEGATIVE Urine WBC (Auto) 3 Urine RBC (Auto) 6 06/24/18 06/24/18 06/25/18 19:20 19:20 01:45 Creatine Kinase 68 CK-MB (CK-2) Troponin I 0.019 NT-Pro-B Natriuret Pep 7630 H 06/25/18 06/25/18 06/25/18 01:45 07:15 07:15 Creatine Kinase 63 CK-MB (CK-2) 0.40 0.35 Troponin I 0.020 0.021 NT-Pro-B Natriuret Pep Impressions: Chest X-Ray 06/24/18 12:40 IMPRESSION: Gross cardiomegaly with right basilar atelectasis, scarring, and/ or pleural effusion, similar to prior examination. This may be further evaluated by PA and lateral radiographs or CT if desired. Assessment & Plan - Diagnosis (1) Acute on chronic diastolic (congestive) heart failure Is this a current diagnosis for this admission?: Yes Plan: Maintain on IV Lasix. Fluid restriction to 1200 mL/day. Maintain on Beta xiao therapy. (2) Anasarca Is this a current diagnosis for this admission?: Yes Plan: Continue fluid restriction and diuretic therapy. (3) Atrial fibrillation with controlled ventricular response Is this a current diagnosis for this admission?: Yes Plan: Maintain on anticoagulation therapy with Eliquis and Beta xiao for rate control. (4) Chronic kidney disease Qualifiers: Chronic kidney disease stage: stage 3 (moderate) Qualified Code(s): N18.3 - Chronic kidney disease, stage 3 (moderate) Is this a current diagnosis for this admission?: Yes Plan: Continue current medication management. (5) Anemia of chronic disease Is this a current diagnosis for this admission?: Yes Plan: Obtain iron studies for anemia. Monitor CBC indices. (6) Chronic cutaneous venous stasis ulcer Is this a current diagnosis for this admission?: Yes Plan: Continue current wound dressing management. (7) Constipation Qualifiers: Constipation type: unspecified constipation type Qualified Code(s): K59.00 - Constipation, unspecified Is this a current diagnosis for this admission?: Yes Plan: Start on Colace 200 mg po daily to hold for diarrhea. - Time Time Spent with patient: 25-34 minutes Medications reviewed and adjusted accordingly: Yes Anticipated discharge: Home with Homehealth, SNF - Patient is very adamantly refused this recommendation which would have been appropriuate setting for his continue care and avoidance of recurrent readmission to the hospital due to noncompliace withdietary restrictions and inability to care for self at home. He admitted to excessive salt intake during recent iday. Within: Other - Inpatient Certification Based on my medical assessment, after consideration of the patient's comorbidities, presenting symptoms, or acuity I expect that the services needed warrant INPATIENT care.: Yes I certify that my determination is in accordance with my understanding of Medicare's requirements for reasonable and necessary INPATIENT services [42 CFR 412.3e].: Yes Medical Necessity: Need Close Monitoring Due to Risk of Patient Decompensation, Need For Continuous Telemetry Monitoring, Risk of Complication if Not Cared For in Hospital Post Hospital Care: D/C Esl Tutor Documentation - Plan Summary Plan Summary: See covering attending physician orders as per outlined care plan.
[2018-06-25] MEDS: DOCUSATE SODIUM 100 MG CAPSULE PO SCH (13:54)
[2018-06-25 14:27] LABS: CREATINE KINASE MB 0.4 ng/mL (<4.55); TROPONIN I 0.019 ng/mL
[2018-06-25] MEDS: ACETAMINOPHEN 325 MG TABLET PO PRN (22:29)
[2018-06-25] MEDS: SIMVASTATIN 10 MG TABLET PO SCH (22:29)
[2018-06-26] MEDS: NORMAL SALINE 250 ML with FUROSEMIDE 250 MG IV PRN ×2 (02:05)
[2018-06-26] MEDS: IPRATROPIUM/ALBUTEROL 0.5-2.5 MG/3 ML AMPUL NEB SCH ×8 (02:36→23:16)
[2018-06-26] MEDS: ACETAMINOPHEN 325 MG TABLET PO PRN ×3 (05:07→22:27)
[2018-06-26 05:18] LABS: ABSOLUTE EOSINOPHILS # (AUTO) 0.3 10^3/uL (0.0-0.6); ABSOLUTE LYMPHOCYTES (AUTO) 0.6 10^3/uL (0.5-4.7); ABSOLUTE MONOCYTES (AUTO) 0.6 10^3/uL (0.1-1.4); ABSOLUTE NEUT (AUTO) 2.2 10^3/uL (1.7-8.2); BASOPHILS % (AUTO) 0.8 % (0-2); EOSINOPHILS % (AUTO) 8.6 % (0-6); HEMATOCRIT 28.6 % (37.9-51.0); HEMOGLOBIN 9.3 g/dL (13.5-17.0); LYMPHOCYTES % (AUTO) 15.4 % (13-45); MEAN CORPUSCULAR HEMOGLOBIN 25.6 pg (27.0-33.4); MEAN CORPUSCULAR HGB CONC 32.4 g/dL (32.0-36.0); MEAN CORPUSCULAR VOLUME 79 fl (80-97); MONOCYTES % (AUTO) 15.5 % (3-13); PLATELET COUNT 151 10^3/uL (150-450); RED BLOOD COUNT 3.62 10^6/uL (4.35-5.55); SEGMENTED NEUTROPHILS % (AUTO) 59.7 % (42-78); TOTAL CELLS COUNTED % (AUTO) 100 %; WHITE BLOOD COUNT 3.7 10^3/uL (4.0-10.5)
[2018-06-26 05:30] LABS: ALANINE AMINOTRANSFERASE 12 U/L (21-72); ALBUMIN 3.3 g/dL (3.5-5.0); ALKALINE PHOSPHATASE 55 U/L (38-126); ANION GAP 8 (5-19); ASPARTATE AMINO TRANSFERASE 12 U/L (17-59); BILIRUBIN,DIRECT 0.8 mg/dL (0.0-0.4); BILIRUBIN,TOTAL 1.5 mg/dL (0.2-1.3); BLOOD UREA NITROGEN 29 mg/dL (7-20); CALCIUM 8.7 mg/dL (8.4-10.2); CARBON DIOXIDE 28 mmol/L (22-30); CHLORIDE 107 mmol/L (98-107); GLUCOSE 112 mg/dL (75-110); SODIUM 143.3 mmol/L (137-145)
[2018-06-26] MEDS: POTASSIUM CHLORIDE 10 MEQ CAPSULE.ER PO SCH (09:01)
[2018-06-26] MEDS: APIXABAN 2.5 MG TABLET PO SCH ×2 (09:01→21:24)
[2018-06-26] MEDS: METOPROLOL TARTRATE 25 MG TABLET PO SCH (09:01)
[2018-06-26] MEDS: DOCUSATE SODIUM 100 MG CAPSULE PO SCH (09:02)
[2018-06-26] MEDS: SODIUM CHLORIDE NASAL SPRAY 44 ML NASL SCH ×2 (09:03→21:24)
--- NOTE | 2018-06-26 12:48 | PDOC PROGRESS REPORT ---
Subjective Progress Note for:: 06/26/18 Subjective:: Patient had one episode of bowel movement yesterday. No nausea, vomiting or abdominal pain. He remain on supplemental oxygen via nasal cannula. No significant chest pain. No fever or chills. Reason For Visit: ANASARCA, ACUTE DIASTOLIC HEART FAILURE Physical Exam Vital Signs: Temp Pulse Resp BP Pulse Ox 98.3 F 85 18 132/85 H 99 06/26/18 07:58 06/26/18 08:18 06/26/18 08:18 06/26/18 07:58 06/26/18 08:18 Intake & Output 06/25/18 06/26/18 06/27/18 06:59 06:59 06:59 Intake Total 1304 Balance 1304 Weight 202.5 kg 201.1 kg Physical Exam: General appearance: PRESENT: morbidly obese Head exam: PRESENT: atraumatic, normocephalic Eye exam: PRESENT: conjunctiva pink, EOMI, PERRLA. ABSENT: pallor, scleral icterus Ear exam: PRESENT: normal external ear exam Mouth exam: PRESENT: moist Respiratory exam: PRESENT: clear to auscultation dell, decreased breath sounds - at lung bases Cardiovascular exam: PRESENT: RRR, +S1, +S2. ABSENT: diastolic murmur, rubs, systolic murmur GI/Abdominal exam: PRESENT: hernia - ventral hernia, normal bowel sounds, soft, other - severe abdominal wall edema. ABSENT: distended, guarding, mass, organomegaly, rebound, tenderness Gentrourinary exam: PRESENT: scrotal swelling Extremities exam: PRESENT: pedal edema - chronic with venous stasis changes Musculoskeletal exam: PRESENT: deformity - related to multiple joints involvement with arthritis Neurological exam: PRESENT: alert, awake, oriented to person, oriented to place , oriented to time, oriented to situation, CN II-XII grossly intact. ABSENT: motor sensory deficit Psychiatric exam: PRESENT: appropriate affect, normal mood. ABSENT: homicidal ideation, suicidal ideation Skin exam: PRESENT: dry, warm, other - chronic lower extremities ulcers with OSKAR wrap dressing Results Laboratory Results: 06/26/18 04:21 06/26/18 04:21 06/26/18 06/26/18 04:21 04:21 WBC 3.7 L RBC 3.62 L Hgb 9.3 L Hct 28.6 L MCV 79 L MCH 25.6 L MCHC 32.4 RDW 18.0 H Plt Count 151 Seg Neutrophils % 59.7 Lymphocytes % 15.4 Monocytes % 15.5 H Eosinophils % 8.6 H Basophils % 0.8 Absolute Neutrophils 2.2 Absolute Lymphocytes 0.6 Absolute Monocytes 0.6 Absolute Eosinophils 0.3 Absolute Basophils 0.0 Sodium 143.3 Potassium 4.0 Chloride 107 Carbon Dioxide 28 Anion Gap 8 BUN 29 H Creatinine 1.74 H Est GFR ( Amer) 50 L Est GFR (Non-Af Amer) 41 L Glucose 112 H Calcium 8.7 Total Bilirubin 1.5 H AST 12 L ALT 12 L Alkaline Phosphatase 55 Total Protein 7.0 Albumin 3.3 L 06/24/18 06/24/18 06/25/18 19:20 19:20 01:45 Creatine Kinase 68 CK-MB (CK-2) Troponin I 0.019 NT-Pro-B Natriuret Pep 7630 H 06/25/18 06/25/18 06/25/18 01:45 07:15 07:15 Creatine Kinase 63 CK-MB (CK-2) 0.40 0.35 Troponin I 0.020 0.021 NT-Pro-B Natriuret Pep 06/25/18 06/25/18 13:08 13:08 Creatine Kinase 62 CK-MB (CK-2) 0.40 Troponin I 0.019 NT-Pro-B Natriuret Pep Impressions: Chest X-Ray 06/24/18 12:40 IMPRESSION: Gross cardiomegaly with right basilar atelectasis, scarring, and/ or pleural effusion, similar to prior examination. This may be further evaluated by PA and lateral radiographs or CT if desired. Assessment & Plan - Diagnosis (1) Acute on chronic diastolic (congestive) heart failure Is this a current diagnosis for this admission?: Yes (2) Anasarca Is this a current diagnosis for this admission?: Yes (3) Atrial fibrillation with controlled ventricular response Is this a current diagnosis for this admission?: Yes (4) Chronic kidney disease Qualifiers: Chronic kidney disease stage: stage 3 (moderate) Qualified Code(s): N18.3 - Chronic kidney disease, stage 3 (moderate) Is this a current diagnosis for this admission?: Yes (5) Anemia of chronic disease Is this a current diagnosis for this admission?: Yes (6) Chronic cutaneous venous stasis ulcer Is this a current diagnosis for this admission?: Yes (7) Constipation Qualifiers: Constipation type: unspecified constipation type Qualified Code(s): K59.00 - Constipation, unspecified Is this a current diagnosis for this admission?: Yes - Time Time Spent with patient: 25-34 minutes Medications reviewed and adjusted accordingly: Yes Anticipated discharge: Home with Homehealth, SNF Within: Other - Inpatient Certification Based on my medical assessment, after consideration of the patient's comorbidities, presenting symptoms, or acuity I expect that the services needed warrant INPATIENT care.: Yes I certify that my determination is in accordance with my understanding of Medicare's requirements for reasonable and necessary INPATIENT services [42 CFR 412.3e].: Yes Medical Necessity: Need Close Monitoring Due to Risk of Patient Decompensation, Need For Continuous Telemetry Monitoring, Risk of Complication if Not Cared For in Hospital Post Hospital Care: D/C Network Support Analyst Documentation, D/C or Transfer Summary - Plan Summary Plan Summary: Maintain on current medication management. Follow up on pending lab results and culture findings.
[2018-06-26] MEDS: SIMVASTATIN 10 MG TABLET PO SCH (21:24)
[2018-06-27] MEDS: IPRATROPIUM/ALBUTEROL 0.5-2.5 MG/3 ML AMPUL NEB SCH ×7 (02:25→23:55)
[2018-06-27 05:19] LABS: ABSOLUTE EOSINOPHILS # (AUTO) 0.4 10^3/uL (0.0-0.6); ABSOLUTE LYMPHOCYTES (AUTO) 0.5 10^3/uL (0.5-4.7); ABSOLUTE MONOCYTES (AUTO) 0.4 10^3/uL (0.1-1.4); ABSOLUTE NEUT (AUTO) 2.1 10^3/uL (1.7-8.2); BASOPHILS % (AUTO) 0.7 % (0-2); EOSINOPHILS % (AUTO) 10.5 % (0-6); HEMATOCRIT 30.1 % (37.9-51.0); HEMOGLOBIN 9.7 g/dL (13.5-17.0); LYMPHOCYTES % (AUTO) 13.5 % (13-45); MEAN CORPUSCULAR HEMOGLOBIN 25.4 pg (27.0-33.4); MEAN CORPUSCULAR HGB CONC 32.1 g/dL (32.0-36.0); MEAN CORPUSCULAR VOLUME 79 fl (80-97); MONOCYTES % (AUTO) 12.5 % (3-13); PLATELET COUNT 152 10^3/uL (150-450); RED BLOOD COUNT 3.81 10^6/uL (4.35-5.55); RED CELL DISTRIBUTION WIDTH 18.3 % (11.5-14.0); SEGMENTED NEUTROPHILS % (AUTO) 62.8 % (42-78); TOTAL CELLS COUNTED % (AUTO) 100 %; WHITE BLOOD COUNT 3.4 10^3/uL (4.0-10.5)
[2018-06-27 05:41] LABS: ALANINE AMINOTRANSFERASE 11 U/L (21-72); ALBUMIN 3.4 g/dL (3.5-5.0); ALKALINE PHOSPHATASE 60 U/L (38-126); ANION GAP 8 (5-19); ASPARTATE AMINO TRANSFERASE 12 U/L (17-59); BILIRUBIN,DIRECT 0.7 mg/dL (0.0-0.4); BILIRUBIN,TOTAL 1.3 mg/dL (0.2-1.3); BLOOD UREA NITROGEN 28 mg/dL (7-20); CALCIUM 8.7 mg/dL (8.4-10.2); CARBON DIOXIDE 28 mmol/L (22-30); CHLORIDE 106 mmol/L (98-107); GLUCOSE 104 mg/dL (75-110); POTASSIUM 4.2 mmol/L (3.6-5.0); SODIUM 142.3 mmol/L (137-145); TOTAL PROTEIN 7.1 g/dL (6.3-8.2)
[2018-06-27] MEDS: NORMAL SALINE 250 ML with FUROSEMIDE 250 MG IV PRN ×2 (06:34)
[2018-06-27] MEDS: METOPROLOL TARTRATE 25 MG TABLET PO SCH (09:16)
[2018-06-27] MEDS: APIXABAN 2.5 MG TABLET PO SCH ×2 (09:16→21:16)
[2018-06-27] MEDS: DOCUSATE SODIUM 100 MG CAPSULE PO SCH (09:16)
[2018-06-27] MEDS: POTASSIUM CHLORIDE 10 MEQ CAPSULE.ER PO SCH (09:16)
[2018-06-27] MEDS: SODIUM CHLORIDE NASAL SPRAY 44 ML NASL SCH ×2 (09:18→21:16)
[2018-06-27] MEDS: ACETAMINOPHEN 325 MG TABLET PO PRN (15:02)
[2018-06-27] MEDS ORDERED: ALBUMIN HUMAN 12.5 GM/50 ML RTUINJ IV SCH (18:46)
[2018-06-27] MEDS: ALBUMIN HUMAN 12.5 GM/50 ML RTUINJ IV SCH ×2 (20:55→21:33)
[2018-06-27] MEDS: SIMVASTATIN 10 MG TABLET PO SCH (21:16)
--- NOTE | 2018-06-27 21:49 | PDOC PROGRESS REPORT ---
Subjective Progress Note for:: 06/27/18 Subjective:: He has tremendous anasarca presently on IV furosemide infusion there is associated hypoalbuminemia Reason For Visit: ANASARCA, ACUTE DIASTOLIC HEART FAILURE Physical Exam Vital Signs: Temp Pulse Resp BP Pulse Ox 97.9 F 80 16 102/72 90 L 06/27/18 16:35 06/27/18 20:13 06/27/18 20:13 06/27/18 16:35 06/27/18 20:13 Intake & Output 06/26/18 06/27/18 06/28/18 06:59 06:59 06:59 Intake Total 1304 1740 870 Balance 1304 1740 870 Weight 201.1 kg 198.9 kg General appearance: PRESENT: mild distress Eye exam: PRESENT: PERRLA Respiratory exam: PRESENT: rhonchi Cardiovascular exam: PRESENT: +S1, +S2 GI/Abdominal exam: PRESENT: soft Extremities exam: PRESENT: pedal edema Neurological exam: PRESENT: alert Results Laboratory Results: 06/27/18 04:36 06/27/18 04:36 06/27/18 06/27/18 04:36 04:36 WBC 3.4 L RBC 3.81 L Hgb 9.7 L Hct 30.1 L MCV 79 L MCH 25.4 L MCHC 32.1 RDW 18.3 H Plt Count 152 Seg Neutrophils % 62.8 Lymphocytes % 13.5 Monocytes % 12.5 Eosinophils % 10.5 H Basophils % 0.7 Absolute Neutrophils 2.1 Absolute Lymphocytes 0.5 Absolute Monocytes 0.4 Absolute Eosinophils 0.4 Absolute Basophils 0.0 Sodium 142.3 Potassium 4.2 Chloride 106 Carbon Dioxide 28 Anion Gap 8 BUN 28 H Creatinine 1.72 H Est GFR ( Amer) 50 L Est GFR (Non-Af Amer) 41 L Glucose 104 Calcium 8.7 Total Bilirubin 1.3 AST 12 L ALT 11 L Alkaline Phosphatase 60 Total Protein 7.1 Albumin 3.4 L 06/25/18 06:24 Clean Catch Midstream Urine Culture - Final Proteus Mirabilis 06/24/18 06/24/18 06/25/18 19:20 19:20 01:45 Creatine Kinase 68 CK-MB (CK-2) Troponin I 0.019 NT-Pro-B Natriuret Pep 7630 H 06/25/18 06/25/18 06/25/18 01:45 07:15 07:15 Creatine Kinase 63 CK-MB (CK-2) 0.40 0.35 Troponin I 0.020 0.021 NT-Pro-B Natriuret Pep 06/25/18 06/25/18 13:08 13:08 Creatine Kinase 62 CK-MB (CK-2) 0.40 Troponin I 0.019 NT-Pro-B Natriuret Pep Impressions: Chest X-Ray 06/24/18 12:40 IMPRESSION: Gross cardiomegaly with right basilar atelectasis, scarring, and/ or pleural effusion, similar to prior examination. This may be further evaluated by PA and lateral radiographs or CT if desired. Assessment & Plan - Diagnosis (1) Acute diastolic heart failure Is this a current diagnosis for this admission?: Yes (2) Anasarca Is this a current diagnosis for this admission?: Yes Plan: continue IV furosemide infusion, give albumin 25 g IV to help mobilize fluid from third space
[2018-06-28] MEDS: IPRATROPIUM/ALBUTEROL 0.5-2.5 MG/3 ML AMPUL NEB SCH ×6 (02:53→20:23)
[2018-06-28] MEDS: ACETAMINOPHEN 325 MG TABLET PO PRN ×2 (03:20→22:56)
[2018-06-28] MEDS: APIXABAN 2.5 MG TABLET PO SCH ×2 (10:33→22:57)
[2018-06-28] MEDS: POTASSIUM CHLORIDE 10 MEQ CAPSULE.ER PO SCH (10:33)
[2018-06-28] MEDS: DOCUSATE SODIUM 100 MG CAPSULE PO SCH (10:33)
[2018-06-28] MEDS: METOPROLOL TARTRATE 25 MG TABLET PO SCH (10:33)
[2018-06-28] MEDS: SODIUM CHLORIDE NASAL SPRAY 44 ML NASL SCH ×2 (10:34→23:00)
[2018-06-28] MEDS: NORMAL SALINE 250 ML with FUROSEMIDE 250 MG IV PRN ×2 (11:42)
[2018-06-28 21:09] LABS: ABSOLUTE EOSINOPHILS # (AUTO) 0.3 10^3/uL (0.0-0.6); ABSOLUTE LYMPHOCYTES (AUTO) 0.4 10^3/uL (0.5-4.7); ABSOLUTE MONOCYTES (AUTO) 0.4 10^3/uL (0.1-1.4); ABSOLUTE NEUT (AUTO) 2.4 10^3/uL (1.7-8.2); BASOPHILS % (AUTO) 1.2 % (0-2); EOSINOPHILS % (AUTO) 9.4 % (0-6); HEMATOCRIT 31.8 % (37.9-51.0); HEMOGLOBIN 10.1 g/dL (13.5-17.0); LYMPHOCYTES % (AUTO) 11.7 % (13-45); MEAN CORPUSCULAR HEMOGLOBIN 25.3 pg (27.0-33.4); MEAN CORPUSCULAR HGB CONC 31.8 g/dL (32.0-36.0); MEAN CORPUSCULAR VOLUME 80 fl (80-97); MONOCYTES % (AUTO) 11.8 % (3-13); PLATELET COUNT 144 10^3/uL (150-450); RED BLOOD COUNT 3.99 10^6/uL (4.35-5.55); RED CELL DISTRIBUTION WIDTH 18.5 % (11.5-14.0); SEGMENTED NEUTROPHILS % (AUTO) 65.9 % (42-78); TOTAL CELLS COUNTED % (AUTO) 100 %; WHITE BLOOD COUNT 3.6 10^3/uL (4.0-10.5)
[2018-06-28 21:24] LABS: ALANINE AMINOTRANSFERASE 7 U/L (21-72); ALBUMIN 3.5 g/dL (3.5-5.0); ALKALINE PHOSPHATASE 60 U/L (38-126); ANION GAP 8 (5-19); ASPARTATE AMINO TRANSFERASE 14 U/L (17-59); BILIRUBIN,DIRECT 0.7 mg/dL (0.0-0.4); BILIRUBIN,TOTAL 1.1 mg/dL (0.2-1.3); BLOOD UREA NITROGEN 33 mg/dL (7-20); CALCIUM 8.9 mg/dL (8.4-10.2); CARBON DIOXIDE 32 mmol/L (22-30); CHLORIDE 101 mmol/L (98-107); GLUCOSE 104 mg/dL (75-110); POTASSIUM 4.3 mmol/L (3.6-5.0); SODIUM 141.1 mmol/L (137-145); TOTAL PROTEIN 7.5 g/dL (6.3-8.2)
--- NOTE | 2018-06-28 21:47 | PDOC PROGRESS REPORT ---
Subjective Progress Note for:: 06/28/18 Subjective:: Patient seen by the bedside he continues to require furosemide infusion Reason For Visit: ANASARCA, ACUTE DIASTOLIC HEART FAILURE Physical Exam Vital Signs: Temp Pulse Resp BP Pulse Ox 99.0 F 96 18 115/64 99 06/28/18 15:29 06/28/18 20:28 06/28/18 20:28 06/28/18 15:29 06/28/18 20:28 Intake & Output 06/27/18 06/28/18 06/29/18 06:59 06:59 06:59 Intake Total 1740 1088 1036 Balance 1740 1088 1036 Weight 198.9 kg 198 kg General appearance: PRESENT: no acute distress Eye exam: PRESENT: PERRLA Respiratory exam: PRESENT: crackles, rhonchi Cardiovascular exam: PRESENT: +S1, +S2 GI/Abdominal exam: PRESENT: soft Neurological exam: PRESENT: alert Results Laboratory Results: 06/28/18 21:02 06/28/18 21:02 06/28/18 06/28/18 21:02 21:02 WBC 3.6 L RBC 3.99 L Hgb 10.1 L Hct 31.8 L MCV 80 MCH 25.3 L MCHC 31.8 L RDW 18.5 H Plt Count 144 L Seg Neutrophils % 65.9 Lymphocytes % 11.7 L Monocytes % 11.8 Eosinophils % 9.4 H Basophils % 1.2 Absolute Neutrophils 2.4 Absolute Lymphocytes 0.4 L Absolute Monocytes 0.4 Absolute Eosinophils 0.3 Absolute Basophils 0.0 Sodium 141.1 Potassium 4.3 Chloride 101 Carbon Dioxide 32 H Anion Gap 8 BUN 33 H Creatinine 1.86 H Est GFR ( Amer) 46 L Est GFR (Non-Af Amer) 38 L Glucose 104 Calcium 8.9 Total Bilirubin 1.1 AST 14 L ALT 7 L Alkaline Phosphatase 60 Total Protein 7.5 Albumin 3.5 06/24/18 06/24/18 06/25/18 19:20 19:20 01:45 Creatine Kinase 68 CK-MB (CK-2) Troponin I 0.019 NT-Pro-B Natriuret Pep 7630 H 06/25/18 06/25/18 06/25/18 01:45 07:15 07:15 Creatine Kinase 63 CK-MB (CK-2) 0.40 0.35 Troponin I 0.020 0.021 NT-Pro-B Natriuret Pep 06/25/18 06/25/18 13:08 13:08 Creatine Kinase 62 CK-MB (CK-2) 0.40 Troponin I 0.019 NT-Pro-B Natriuret Pep Impressions: Chest X-Ray 06/24/18 12:40 IMPRESSION: Gross cardiomegaly with right basilar atelectasis, scarring, and/or pleural effusion, similar to prior examination. This may be further evaluated by PA and lateral radiographs or CT if desired. Assessment & Plan - Diagnosis (1) Acute diastolic heart failure Is this a current diagnosis for this admission?: Yes Plan: Continue Lasix drip (2) Anasarca Is this a current diagnosis for this admission?: Yes (3) Nephrotic syndrome Is this a current diagnosis for this admission?: Yes (4) Morbid obesity Is this a current diagnosis for this admission?: Yes (5) Super obesity Is this a current diagnosis for this admission?: Yes (6) Super obesity Is this a current diagnosis for this admission?: Yes
[2018-06-28] MEDS: SIMVASTATIN 10 MG TABLET PO SCH (22:57)
[2018-06-29 06:57] LABS: ABSOLUTE EOSINOPHILS # (AUTO) 0.4 10^3/uL (0.0-0.6); ABSOLUTE LYMPHOCYTES (AUTO) 0.5 10^3/uL (0.5-4.7); ABSOLUTE MONOCYTES (AUTO) 0.5 10^3/uL (0.1-1.4); ABSOLUTE NEUT (AUTO) 2.2 10^3/uL (1.7-8.2); BASOPHILS % (AUTO) 0.9 % (0-2); EOSINOPHILS % (AUTO) 10.1 % (0-6); LYMPHOCYTES % (AUTO) 13.4 % (13-45); MEAN CORPUSCULAR HGB CONC 31.3 g/dL (32.0-36.0); MEAN CORPUSCULAR VOLUME 80 fl (80-97); MONOCYTES % (AUTO) 13.8 % (3-13); PLATELET COUNT 142 10^3/uL (150-450); RED BLOOD COUNT 4.02 10^6/uL (4.35-5.55); RED CELL DISTRIBUTION WIDTH 18.6 % (11.5-14.0); SEGMENTED NEUTROPHILS % (AUTO) 61.8 % (42-78); TOTAL CELLS COUNTED % (AUTO) 100 %; WHITE BLOOD COUNT 3.5 10^3/uL (4.0-10.5)
[2018-06-29 08:10] LABS: ASPARTATE AMINO TRANSFERASE 15 U/L (17-59); BILIRUBIN,DIRECT 0.6 mg/dL (0.0-0.4)
[2018-06-29 08:20] LABS: ALANINE AMINOTRANSFERASE 10 U/L (21-72); ALBUMIN 3.5 g/dL (3.5-5.0); ALKALINE PHOSPHATASE 59 U/L (38-126); ANION GAP 9 (5-19); BILIRUBIN,TOTAL 0.9 mg/dL (0.2-1.3); BLOOD UREA NITROGEN 32 mg/dL (7-20); CALCIUM 8.9 mg/dL (8.4-10.2); CARBON DIOXIDE 30 mmol/L (22-30); CHLORIDE 103 mmol/L (98-107); GLUCOSE 108 mg/dL (75-110); TOTAL PROTEIN 7.2 g/dL (6.3-8.2)
[2018-06-29] MEDS: IPRATROPIUM/ALBUTEROL 0.5-2.5 MG/3 ML AMPUL NEB SCH ×3 (08:26→20:08)
[2018-06-29] MEDS: METOPROLOL TARTRATE 25 MG TABLET PO SCH (10:50)
[2018-06-29] MEDS: APIXABAN 2.5 MG TABLET PO SCH ×2 (10:50→21:03)
[2018-06-29] MEDS: POTASSIUM CHLORIDE 10 MEQ CAPSULE.ER PO SCH (10:51)
[2018-06-29] MEDS: DOCUSATE SODIUM 100 MG CAPSULE PO SCH (10:52)
[2018-06-29] MEDS: SODIUM CHLORIDE NASAL SPRAY 44 ML NASL SCH ×2 (10:53→21:04)
[2018-06-29] MEDS: NORMAL SALINE 250 ML with FUROSEMIDE 250 MG IV PRN ×2 (18:59)
--- NOTE | 2018-06-29 20:04 | PDOC PROGRESS REPORT ---
Subjective Progress Note for:: 06/29/18 Subjective:: Patient continues to require furosemide infusion he has super obesity with acute diastolic heart failure Reason For Visit: ANASARCA, ACUTE DIASTOLIC HEART FAILURE Physical Exam Vital Signs: Temp Pulse Resp BP Pulse Ox 98.2 F 94 20 109/70 96 06/29/18 15:34 06/29/18 15:34 06/29/18 15:34 06/29/18 15:34 06/29/18 15:34 Intake & Output 06/28/18 06/29/18 06/30/18 06:59 06:59 06:59 Intake Total 1088 1036 1118 Balance 1088 1036 1118 Weight 198 kg 198.265 kg General appearance: PRESENT: mild distress Eye exam: PRESENT: PERRLA Respiratory exam: PRESENT: rhonchi Cardiovascular exam: PRESENT: +S1, +S2 GI/Abdominal exam: PRESENT: soft Neurological exam: PRESENT: alert Results Laboratory Results: 06/29/18 05:37 06/29/18 05:37 06/28/18 06/28/18 06/29/18 21:02 21:02 05:37 WBC 3.6 L 3.5 L RBC 3.99 L 4.02 L Hgb 10.1 L 10.0 L Hct 31.8 L 32.0 L MCV 80 80 MCH 25.3 L 25.0 L MCHC 31.8 L 31.3 L RDW 18.5 H 18.6 H Plt Count 144 L 142 L Seg Neutrophils % 65.9 61.8 Lymphocytes % 11.7 L 13.4 Monocytes % 11.8 13.8 H Eosinophils % 9.4 H 10.1 H Basophils % 1.2 0.9 Absolute Neutrophils 2.4 2.2 Absolute Lymphocytes 0.4 L 0.5 Absolute Monocytes 0.4 0.5 Absolute Eosinophils 0.3 0.4 Absolute Basophils 0.0 0.0 Sodium 141.1 Potassium 4.3 Chloride 101 Carbon Dioxide 32 H Anion Gap 8 BUN 33 H Creatinine 1.86 H Est GFR ( Amer) 46 L Est GFR (Non-Af Amer) 38 L Glucose 104 Calcium 8.9 Total Bilirubin 1.1 AST 14 L ALT 7 L Alkaline Phosphatase 60 Total Protein 7.5 Albumin 3.5 06/29/18 05:37 WBC RBC Hgb Hct MCV MCH MCHC RDW Plt Count Seg Neutrophils % Lymphocytes % Monocytes % Eosinophils % Basophils % Absolute Neutrophils Absolute Lymphocytes Absolute Monocytes Absolute Eosinophils Absolute Basophils Sodium 142.0 Potassium 4.0 Chloride 103 Carbon Dioxide 30 Anion Gap 9 BUN 32 H Creatinine 1.79 H Est GFR ( Amer) 48 L Est GFR (Non-Af Amer) 40 L Glucose 108 Calcium 8.9 Total Bilirubin 0.9 AST 15 L ALT 10 L Alkaline Phosphatase 59 Total Protein 7.2 Albumin 3.5 06/24/18 06/24/18 06/24/18 13:58 19:20 19:20 Creatine Kinase CK-MB (CK-2) Troponin I 0.021 0.019 NT-Pro-B Natriuret Pep 7730 H 7630 H 06/25/18 06/25/18 06/25/18 01:45 01:45 07:15 Creatine Kinase 68 63 CK-MB (CK-2) 0.40 Troponin I 0.020 NT-Pro-B Natriuret Pep 06/25/18 06/25/18 06/25/18 07:15 13:08 13:08 Creatine Kinase 62 CK-MB (CK-2) 0.35 0.40 Troponin I 0.021 0.019 NT-Pro-B Natriuret Pep Impressions: Chest X-Ray 06/24/18 12:40 IMPRESSION: Gross cardiomegaly with right basilar atelectasis, scarring, and/or pleural effusion, similar to prior examination. This may be further evaluated by PA and lateral radiographs or CT if desired. Assessment & Plan - Diagnosis (1) Acute diastolic heart failure Is this a current diagnosis for this admission?: Yes (2) Anasarca Is this a current diagnosis for this admission?: Yes (3) Nephrotic syndrome Is this a current diagnosis for this admission?: Yes (4) Super obesity Is this a current diagnosis for this admission?: Yes (5) Acute hypoxemic respiratory failure Is this a current diagnosis for this admission?: Yes Plan: Patient continues to require BiPAP
[2018-06-29] MEDS: ACETAMINOPHEN 325 MG TABLET PO PRN (20:25)
[2018-06-29] MEDS: SIMVASTATIN 10 MG TABLET PO SCH (21:03)
[2018-06-30] MEDS: IPRATROPIUM/ALBUTEROL 0.5-2.5 MG/3 ML AMPUL NEB SCH ×3 (08:30→21:02)
[2018-06-30] MEDS: METOPROLOL TARTRATE 25 MG TABLET PO SCH (10:37)
[2018-06-30] MEDS: APIXABAN 2.5 MG TABLET PO SCH ×2 (10:38→21:08)
[2018-06-30] MEDS: DOCUSATE SODIUM 100 MG CAPSULE PO SCH (10:38)
[2018-06-30] MEDS: POTASSIUM CHLORIDE 10 MEQ CAPSULE.ER PO SCH (10:38)
[2018-06-30] MEDS: SODIUM CHLORIDE NASAL SPRAY 44 ML NASL SCH ×2 (10:39→21:10)
[2018-06-30] MEDS: ACETAMINOPHEN 325 MG TABLET PO PRN (21:07)
[2018-06-30] MEDS: NORMAL SALINE 250 ML with FUROSEMIDE 250 MG IV PRN ×2 (21:08)
[2018-06-30] MEDS: SIMVASTATIN 10 MG TABLET PO SCH (21:08)
--- NOTE | 2018-06-30 21:30 | PDOC PROGRESS REPORT ---
Subjective Progress Note for:: 06/30/18 Subjective:: Patient seen by the bedside, still requiring IV furosemide infusion Reason For Visit: ANASARCA, ACUTE DIASTOLIC HEART FAILURE Physical Exam Vital Signs: Temp Pulse Resp BP Pulse Ox 98.2 F 94 18 106/64 99 06/30/18 15:02 06/30/18 19:00 06/30/18 13:37 06/30/18 15:02 06/30/18 15:02 Intake & Output 06/29/18 06/30/18 07/01/18 06:59 06:59 06:59 Intake Total 1036 1118 1018 Balance 1036 1118 1018 Weight 198.265 kg 204 kg General appearance: PRESENT: no acute distress Eye exam: PRESENT: PERRLA Respiratory exam: PRESENT: clear to auscultation dell Cardiovascular exam: PRESENT: +S1, +S2 GI/Abdominal exam: PRESENT: soft Neurological exam: PRESENT: alert Results Laboratory Results: 06/29/18 05:37 06/29/18 05:37 06/25/18 01:45 Blood Blood Culture - Final NO GROWTH IN 5 DAYS 06/24/18 21:20 Blood Blood Culture - Final NO GROWTH IN 5 DAYS 06/24/18 06/24/18 06/24/18 13:58 19:20 19:20 Creatine Kinase CK-MB (CK-2) Troponin I 0.021 0.019 NT-Pro-B Natriuret Pep 7730 H 7630 H 06/25/18 06/25/18 06/25/18 01:45 01:45 07:15 Creatine Kinase 68 63 CK-MB (CK-2) 0.40 Troponin I 0.020 NT-Pro-B Natriuret Pep 06/25/18 06/25/18 06/25/18 07:15 13:08 13:08 Creatine Kinase 62 CK-MB (CK-2) 0.35 0.40 Troponin I 0.021 0.019 NT-Pro-B Natriuret Pep Impressions: Chest X-Ray 06/24/18 12:40 IMPRESSION: Gross cardiomegaly with right basilar atelectasis, scarring, and/or pleural effusion, similar to prior examination. This may be further evaluated by PA and lateral radiographs or CT if desired. Assessment & Plan - Diagnosis (1) Acute diastolic heart failure Is this a current diagnosis for this admission?: Yes (2) Anasarca Is this a current diagnosis for this admission?: Yes (3) Nephrotic syndrome Is this a current diagnosis for this admission?: Yes (4) Super obesity Is this a current diagnosis for this admission?: Yes (5) Acute hypoxemic respiratory failure Is this a current diagnosis for this admission?: Yes (6) E. coli UTI Is this a current diagnosis for this admission?: Yes Plan: Start p.o. Cipro
[2018-06-30 21:53] LABS: ABSOLUTE BASOPHILS # (AUTO) 0.1 10^3/uL (0.0-0.2); ABSOLUTE EOSINOPHILS # (AUTO) 0.3 10^3/uL (0.0-0.6); ABSOLUTE LYMPHOCYTES (AUTO) 0.5 10^3/uL (0.5-4.7); ABSOLUTE MONOCYTES (AUTO) 0.5 10^3/uL (0.1-1.4); ABSOLUTE NEUT (AUTO) 2.5 10^3/uL (1.7-8.2); BASOPHILS % (AUTO) 1.3 % (0-2); EOSINOPHILS % (AUTO) 7.2 % (0-6); HEMATOCRIT 30.3 % (37.9-51.0); HEMOGLOBIN 9.7 g/dL (13.5-17.0); LYMPHOCYTES % (AUTO) 13.8 % (13-45); MEAN CORPUSCULAR HEMOGLOBIN 25.5 pg (27.0-33.4); MEAN CORPUSCULAR HGB CONC 32.1 g/dL (32.0-36.0); MEAN CORPUSCULAR VOLUME 79 fl (80-97); MONOCYTES % (AUTO) 13.1 % (3-13); PLATELET COUNT 138 10^3/uL (150-450); RED BLOOD COUNT 3.82 10^6/uL (4.35-5.55); RED CELL DISTRIBUTION WIDTH 17.9 % (11.5-14.0); SEGMENTED NEUTROPHILS % (AUTO) 64.6 % (42-78); TOTAL CELLS COUNTED % (AUTO) 100 %; WHITE BLOOD COUNT 3.9 10^3/uL (4.0-10.5)
[2018-06-30 22:09] LABS: ALANINE AMINOTRANSFERASE < 6 U/L (21-72); ALBUMIN 3.3 g/dL (3.5-5.0); ALKALINE PHOSPHATASE 61 U/L (38-126); ANION GAP 7 (5-19); ASPARTATE AMINO TRANSFERASE 17 U/L (17-59); BILIRUBIN,DIRECT 0.5 mg/dL (0.0-0.4); BILIRUBIN,TOTAL 0.9 mg/dL (0.2-1.3); BLOOD UREA NITROGEN 36 mg/dL (7-20); CALCIUM 8.7 mg/dL (8.4-10.2); CARBON DIOXIDE 31 mmol/L (22-30); CHLORIDE 102 mmol/L (98-107); GLUCOSE 102 mg/dL (75-110); POTASSIUM 4.5 mmol/L (3.6-5.0); SODIUM 139.5 mmol/L (137-145); TOTAL PROTEIN 6.9 g/dL (6.3-8.2)
[2018-07-01] MEDS: CIPROFLOXACIN HCL 500 MG TABLET PO SCH ×3 (02:34→22:16)
[2018-07-01 05:09] LABS: ABSOLUTE EOSINOPHILS # (AUTO) 0.3 10^3/uL (0.0-0.6); ABSOLUTE LYMPHOCYTES (AUTO) 0.5 10^3/uL (0.5-4.7); ABSOLUTE MONOCYTES (AUTO) 0.5 10^3/uL (0.1-1.4); ABSOLUTE NEUT (AUTO) 2.1 10^3/uL (1.7-8.2); BASOPHILS % (AUTO) 1.2 % (0-2); EOSINOPHILS % (AUTO) 8.1 % (0-6); HEMATOCRIT 30.2 % (37.9-51.0); HEMOGLOBIN 9.6 g/dL (13.5-17.0); LYMPHOCYTES % (AUTO) 15.2 % (13-45); MEAN CORPUSCULAR HEMOGLOBIN 25.1 pg (27.0-33.4); MEAN CORPUSCULAR HGB CONC 31.8 g/dL (32.0-36.0); MEAN CORPUSCULAR VOLUME 79 fl (80-97); MONOCYTES % (AUTO) 13.5 % (3-13); PLATELET COUNT 126 10^3/uL (150-450); RED BLOOD COUNT 3.82 10^6/uL (4.35-5.55); RED CELL DISTRIBUTION WIDTH 17.8 % (11.5-14.0); TOTAL CELLS COUNTED % (AUTO) 100 %; WHITE BLOOD COUNT 3.4 10^3/uL (4.0-10.5)
[2018-07-01 05:33] LABS: ALANINE AMINOTRANSFERASE 17 U/L (21-72); ALBUMIN 3.3 g/dL (3.5-5.0); ALKALINE PHOSPHATASE 60 U/L (38-126); ANION GAP 7 (5-19); ASPARTATE AMINO TRANSFERASE 18 U/L (17-59); BILIRUBIN,DIRECT 0.6 mg/dL (0.0-0.4); BLOOD UREA NITROGEN 36 mg/dL (7-20); CALCIUM 8.7 mg/dL (8.4-10.2); CARBON DIOXIDE 30 mmol/L (22-30); CHLORIDE 103 mmol/L (98-107); GLUCOSE 93 mg/dL (75-110); POTASSIUM 4.7 mmol/L (3.6-5.0); SODIUM 140.2 mmol/L (137-145); TOTAL PROTEIN 6.8 g/dL (6.3-8.2)
[2018-07-01] MEDS: IPRATROPIUM/ALBUTEROL 0.5-2.5 MG/3 ML AMPUL NEB SCH ×3 (09:23→20:28)
[2018-07-01] MEDS: POTASSIUM CHLORIDE 10 MEQ CAPSULE.ER PO SCH (10:10)
[2018-07-01] MEDS: APIXABAN 2.5 MG TABLET PO SCH ×2 (10:10→22:16)
[2018-07-01] MEDS: DOCUSATE SODIUM 100 MG CAPSULE PO SCH (10:10)
[2018-07-01] MEDS: METOPROLOL TARTRATE 25 MG TABLET PO SCH (10:20)
[2018-07-01] MEDS: SODIUM CHLORIDE NASAL SPRAY 44 ML NASL SCH ×2 (10:21→22:17)
[2018-07-01] MEDS: ACETAMINOPHEN 325 MG TABLET PO PRN (17:38)
[2018-07-01] MEDS: NORMAL SALINE 250 ML with FUROSEMIDE 250 MG IV PRN ×2 (17:39)
[2018-07-01] MEDS: PHARMACY COMMUNICATION ORDER MC SCH (17:46)
[2018-07-01] MEDS: SIMVASTATIN 10 MG TABLET PO SCH (22:16)
[2018-07-02] MEDS: IPRATROPIUM/ALBUTEROL 0.5-2.5 MG/3 ML AMPUL NEB SCH ×3 (08:29→19:31)
[2018-07-02] MEDS: POTASSIUM CHLORIDE 10 MEQ CAPSULE.ER PO SCH (10:53)
[2018-07-02] MEDS: APIXABAN 2.5 MG TABLET PO SCH ×2 (10:53→21:53)
[2018-07-02] MEDS: CIPROFLOXACIN HCL 500 MG TABLET PO SCH ×2 (10:53→21:53)
[2018-07-02] MEDS: DOCUSATE SODIUM 100 MG CAPSULE PO SCH (10:53)
[2018-07-02] MEDS: METOPROLOL TARTRATE 25 MG TABLET PO SCH (10:54)
[2018-07-02] MEDS: SODIUM CHLORIDE NASAL SPRAY 44 ML NASL SCH ×2 (11:15→21:54)
[2018-07-02] MEDS: NORMAL SALINE 250 ML with FUROSEMIDE 250 MG IV PRN ×2 (17:51)
[2018-07-02] MEDS: PHARMACY COMMUNICATION ORDER MC SCH (17:52)
[2018-07-02 19:27] LABS: ABSOLUTE EOSINOPHILS # (AUTO) 0.3 10^3/uL (0.0-0.6); ABSOLUTE LYMPHOCYTES (AUTO) 0.6 10^3/uL (0.5-4.7); ABSOLUTE MONOCYTES (AUTO) 0.5 10^3/uL (0.1-1.4); ABSOLUTE NEUT (AUTO) 2.4 10^3/uL (1.7-8.2); BASOPHILS % (AUTO) 1.1 % (0-2); HEMATOCRIT 30.5 % (37.9-51.0); HEMOGLOBIN 9.7 g/dL (13.5-17.0); LYMPHOCYTES % (AUTO) 15.2 % (13-45); MEAN CORPUSCULAR HEMOGLOBIN 25.3 pg (27.0-33.4); MEAN CORPUSCULAR HGB CONC 31.9 g/dL (32.0-36.0); MEAN CORPUSCULAR VOLUME 79 fl (80-97); MONOCYTES % (AUTO) 13.7 % (3-13); PLATELET COUNT 126 10^3/uL (150-450); RED BLOOD COUNT 3.86 10^6/uL (4.35-5.55); RED CELL DISTRIBUTION WIDTH 18.1 % (11.5-14.0); TOTAL CELLS COUNTED % (AUTO) 100 %; WHITE BLOOD COUNT 3.9 10^3/uL (4.0-10.5)
[2018-07-02 19:43] LABS: ANION GAP 8 (5-19); BLOOD UREA NITROGEN 39 mg/dL (7-20); CALCIUM 8.8 mg/dL (8.4-10.2); CARBON DIOXIDE 32 mmol/L (22-30); CHLORIDE 100 mmol/L (98-107); GLUCOSE 102 mg/dL (75-110); POTASSIUM 4.2 mmol/L (3.6-5.0); SODIUM 140.3 mmol/L (137-145)
--- NOTE | 2018-07-02 21:24 | PDOC PROGRESS REPORT ---
Subjective Progress Note for:: 07/02/18 Subjective:: Patient with tremendous anasarca still requiring Lasix infusion Reason For Visit: ANASARCA, ACUTE DIASTOLIC HEART FAILURE Physical Exam Vital Signs: Temp Pulse Resp BP Pulse Ox 98.6 F 89 14 98/63 L 100 07/02/18 15:44 07/02/18 19:31 07/02/18 19:31 07/02/18 15:44 07/02/18 15:44 Intake & Output 07/01/18 07/02/18 07/03/18 06:59 06:59 06:59 Intake Total 2243 1571 642 Balance 2243 1571 642 Weight 197.4 kg 197.7 kg General appearance: PRESENT: no acute distress Eye exam: PRESENT: PERRLA Respiratory exam: PRESENT: clear to auscultation dell Cardiovascular exam: PRESENT: +S2 GI/Abdominal exam: PRESENT: soft Neurological exam: PRESENT: alert Results Laboratory Results: 07/02/18 19:15 07/02/18 19:15 07/02/18 07/02/18 19:15 19:15 WBC 3.9 L RBC 3.86 L Hgb 9.7 L Hct 30.5 L MCV 79 L MCH 25.3 L MCHC 31.9 L RDW 18.1 H Plt Count 126 L Seg Neutrophils % 62.0 Lymphocytes % 15.2 Monocytes % 13.7 H Eosinophils % 8.0 H Basophils % 1.1 Absolute Neutrophils 2.4 Absolute Lymphocytes 0.6 Absolute Monocytes 0.5 Absolute Eosinophils 0.3 Absolute Basophils 0.0 Sodium 140.3 Potassium 4.2 Chloride 100 Carbon Dioxide 32 H Anion Gap 8 BUN 39 H Creatinine 1.73 H Est GFR ( Amer) 50 L Est GFR (Non-Af Amer) 41 L Glucose 102 Calcium 8.8 06/24/18 06/24/18 06/24/18 13:58 19:20 19:20 Creatine Kinase CK-MB (CK-2) Troponin I 0.021 0.019 NT-Pro-B Natriuret Pep 7730 H 7630 H 06/25/18 06/25/18 06/25/18 01:45 01:45 07:15 Creatine Kinase 68 63 CK-MB (CK-2) 0.40 Troponin I 0.020 NT-Pro-B Natriuret Pep 06/25/18 06/25/1806/25/18 07:15 13:08 13:08 Creatine Kinase 62 CK-MB (CK-2) 0.35 0.40 Troponin I 0.021 0.019 NT-Pro-B Natriuret Pep Impressions: Chest X-Ray 06/24/18 12:40 IMPRESSION: Gross cardiomegaly with right basilar atelectasis, scarring, and/or pleural effusion, similar to prior examination. This may be further evaluated by PA and lateral radiographs or CT if desired. Assessment & Plan - Diagnosis (1) Acute diastolic heart failure Is this a current diagnosis for this admission?: Yes (2) Anasarca Is this a current diagnosis for this admission?: Yes (3) Nephrotic syndrome Is this a current diagnosis for this admission?: Yes (4) Super obesity Is this a current diagnosis for this admission?: Yes (5) Acute hypoxemic respiratory failure Is this a current diagnosis for this admission?: Yes (6) E. coli UTI Is this a current diagnosis for this admission?: Yes
[2018-07-02] MEDS: SIMVASTATIN 10 MG TABLET PO SCH (21:53)
[2018-07-03] MEDS: IPRATROPIUM/ALBUTEROL 0.5-2.5 MG/3 ML AMPUL NEB SCH ×3 (08:11→20:32)
[2018-07-03] MEDS: APIXABAN 2.5 MG TABLET PO SCH ×2 (09:26→21:36)
[2018-07-03] MEDS: METOPROLOL TARTRATE 25 MG TABLET PO SCH (09:26)
[2018-07-03] MEDS: POTASSIUM CHLORIDE 10 MEQ CAPSULE.ER PO SCH (09:26)
[2018-07-03] MEDS: DOCUSATE SODIUM 100 MG CAPSULE PO SCH (09:26)
[2018-07-03] MEDS: SODIUM CHLORIDE NASAL SPRAY 44 ML NASL SCH ×2 (09:26→21:37)
[2018-07-03] MEDS: CIPROFLOXACIN HCL 500 MG TABLET PO SCH ×2 (09:26→21:36)
[2018-07-03 12:58] LABS: ABSOLUTE EOSINOPHILS # (AUTO) 0.3 10^3/uL (0.0-0.6); ABSOLUTE LYMPHOCYTES (AUTO) 0.5 10^3/uL (0.5-4.7); ABSOLUTE MONOCYTES (AUTO) 0.4 10^3/uL (0.1-1.4); ABSOLUTE NEUT (AUTO) 2.3 10^3/uL (1.7-8.2); BASOPHILS % (AUTO) 1.2 % (0-2); EOSINOPHILS % (AUTO) 9.3 % (0-6); HEMATOCRIT 30.6 % (37.9-51.0); HEMOGLOBIN 9.7 g/dL (13.5-17.0); LYMPHOCYTES % (AUTO) 13.3 % (13-45); MEAN CORPUSCULAR HEMOGLOBIN 25.2 pg (27.0-33.4); MEAN CORPUSCULAR HGB CONC 31.8 g/dL (32.0-36.0); MEAN CORPUSCULAR VOLUME 79 fl (80-97); MONOCYTES % (AUTO) 11.9 % (3-13); PLATELET COUNT 133 10^3/uL (150-450); RED BLOOD COUNT 3.86 10^6/uL (4.35-5.55); RED CELL DISTRIBUTION WIDTH 18.2 % (11.5-14.0); SEGMENTED NEUTROPHILS % (AUTO) 64.3 % (42-78); TOTAL CELLS COUNTED % (AUTO) 100 %; WHITE BLOOD COUNT 3.6 10^3/uL (4.0-10.5)
[2018-07-03 13:19] LABS: ALANINE AMINOTRANSFERASE 13 U/L (21-72); ALBUMIN 3.3 g/dL (3.5-5.0); ALKALINE PHOSPHATASE 62 U/L (38-126); ANION GAP 8 (5-19); ASPARTATE AMINO TRANSFERASE 19 U/L (17-59); BILIRUBIN,DIRECT 0.6 mg/dL (0.0-0.4); BLOOD UREA NITROGEN 36 mg/dL (7-20); CALCIUM 8.8 mg/dL (8.4-10.2); CARBON DIOXIDE 31 mmol/L (22-30); CHLORIDE 100 mmol/L (98-107); GLUCOSE 117 mg/dL (75-110); POTASSIUM 4.3 mmol/L (3.6-5.0); SODIUM 139.2 mmol/L (137-145); TOTAL PROTEIN 6.9 g/dL (6.3-8.2)
--- NOTE | 2018-07-03 14:13 | PDOC PROGRESS REPORT ---
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 Reason For Visit: ANASARCA, ACUTE DIASTOLIC HEART FAILURE Physical Exam Vital Signs: Temp Pulse Resp BP Pulse Ox 98.7 F 88 18 89/59 L 99 07/03/18 11:24 07/03/18 11:24 07/03/18 11:24 07/03/18 11:24 07/03/18 11:24 Intake & Output 07/02/18 07/03/18 07/04/18 06:59 06:59 06:59 Intake Total 1571 1542 Balance 1571 1542 Weight 197.7 kg 200.4 kg General appearance: PRESENT: no acute distress Eye exam: PRESENT: PERRLA Respiratory exam: PRESENT: clear to auscultation dell Cardiovascular exam: PRESENT: +S1, +S2 GI/Abdominal exam: PRESENT: other - Abdominal wall edema Extremities exam: PRESENT: pedal edema Neurological exam: PRESENT: alert Results Laboratory Results: 07/03/18 12:40 07/03/18 12:40 07/02/18 07/02/18 07/03/18 19:15 19:15 12:40 WBC 3.9 L 3.6 L RBC 3.86 L 3.86 L Hgb 9.7 L 9.7 L Hct 30.5 L 30.6 L MCV 79 L 79 L MCH 25.3 L 25.2 L MCHC 31.9 L 31.8 L RDW 18.1 H 18.2 H Plt Count 126 L 133 L Seg Neutrophils % 62.0 64.3 Lymphocytes % 15.2 13.3 Monocytes % 13.7 H 11.9 Eosinophils % 8.0 H 9.3 H Basophils % 1.1 1.2 Absolute Neutrophils 2.4 2.3 Absolute Lymphocytes 0.6 0.5 Absolute Monocytes 0.5 0.4 Absolute Eosinophils 0.3 0.3 Absolute Basophils 0.0 0.0 Sodium 140.3 Potassium 4.2 Chloride 100 Carbon Dioxide 32 H Anion Gap 8 BUN 39 H Creatinine 1.73 H Est GFR ( Amer) 50 L Est GFR (Non-Af Amer) 41 L Glucose 102 Calcium 8.8 Total Bilirubin AST ALT Alkaline Phosphatase Total Protein Albumin 07/03/18 12:40 WBC RBC Hgb Hct MCV MCH MCHC RDW Plt Count Seg Neutrophils % Lymphocytes % Monocytes % Eosinophils % Basophils % Absolute Neutrophils Absolute Lymphocytes Absolute Monocytes Absolute Eosinophils Absolute Basophils Sodium 139.2 Potassium 4.3 Chloride 100 Carbon Dioxide 31 H Anion Gap 8 BUN 36 H Creatinine 1.61 H Est GFR ( Amer) 54 L Est GFR (Non-Af Amer) 45 L Glucose 117 H Calcium 8.8 Total Bilirubin 1.0 AST 19 ALT 13 L Alkaline Phosphatase 62 Total Protein 6.9 Albumin 3.3 L 06/24/18 06/24/18 06/24/18 13:58 19:20 19:20 Creatine Kinase CK-MB (CK-2) Troponin I 0.021 0.019 NT-Pro-B Natriuret Pep 7730 H 7630 H 06/25/18 06/25/18 06/25/18 01:45 01:45 07:15 Creatine Kinase 68 63 CK-MB (CK-2) 0.40 Troponin I 0.020 NT-Pro-B Natriuret Pep 06/25/18 06/25/18 06/25/18 07:15 13:08 13:08 Creatine Kinase 62 CK-MB (CK-2) 0.35 0.40 Troponin I 0.021 0.019 NT-Pro-B Natriuret Pep Impressions: Chest X-Ray 06/24/18 12:40 IMPRESSION: Gross cardiomegaly with right basilar atelectasis, scarring, and/or pleural effusion, similar to prior examination. This may be further evaluated by PA and lateral radiographs or CT if desired. Assessment & Plan - Diagnosis (1) Acute diastolic heart failure Is this a current diagnosis for this admission?: Yes (2) Anasarca Is this a current diagnosis for this admission?: Yes (3) Nephrotic syndrome Is this a current diagnosis for this admission?: Yes (4) Super obesity Is this a current diagnosis for this admission?: Yes (5) Acute hypoxemic respiratory failure Is this a current diagnosis for this admission?: Yes (6) E. coli UTI Is this a current diagnosis for this admission?: Yes
[2018-07-03] MEDS: ACETAMINOPHEN 325 MG TABLET PO PRN (15:15)
[2018-07-03] MEDS: NORMAL SALINE 250 ML with FUROSEMIDE 250 MG IV PRN ×2 (17:21)
[2018-07-03] MEDS: PHARMACY COMMUNICATION ORDER MC SCH (17:26)
[2018-07-03] MEDS: SIMVASTATIN 10 MG TABLET PO SCH (21:36)
[2018-07-04] MEDS: ACETAMINOPHEN 325 MG TABLET PO PRN (02:07)
[2018-07-04] MEDS: IPRATROPIUM/ALBUTEROL 0.5-2.5 MG/3 ML AMPUL NEB SCH ×3 (08:34→20:41)
[2018-07-04] MEDS: POTASSIUM CHLORIDE 10 MEQ CAPSULE.ER PO SCH (10:17)
[2018-07-04] MEDS: METOPROLOL TARTRATE 25 MG TABLET PO SCH (10:18)
[2018-07-04] MEDS: CIPROFLOXACIN HCL 500 MG TABLET PO SCH ×2 (10:18→21:37)
[2018-07-04] MEDS: APIXABAN 2.5 MG TABLET PO SCH ×2 (10:18→21:37)
[2018-07-04] MEDS: DOCUSATE SODIUM 100 MG CAPSULE PO SCH (10:18)
[2018-07-04] MEDS: SODIUM CHLORIDE NASAL SPRAY 44 ML NASL SCH ×2 (10:29→21:37)
[2018-07-04 14:39] LABS: ABSOLUTE EOSINOPHILS # (AUTO) 0.4 10^3/uL (0.0-0.6); ABSOLUTE LYMPHOCYTES (AUTO) 0.4 10^3/uL (0.5-4.7); ABSOLUTE MONOCYTES (AUTO) 0.5 10^3/uL (0.1-1.4); ABSOLUTE NEUT (AUTO) 2.3 10^3/uL (1.7-8.2); HEMATOCRIT 30.2 % (37.9-51.0); HEMOGLOBIN 9.6 g/dL (13.5-17.0); LYMPHOCYTES % (AUTO) 11.5 % (13-45); MEAN CORPUSCULAR HEMOGLOBIN 25.1 pg (27.0-33.4); MEAN CORPUSCULAR HGB CONC 31.7 g/dL (32.0-36.0); MEAN CORPUSCULAR VOLUME 79 fl (80-97); MONOCYTES % (AUTO) 14.4 % (3-13); PLATELET COUNT 128 10^3/uL (150-450); RED BLOOD COUNT 3.83 10^6/uL (4.35-5.55); RED CELL DISTRIBUTION WIDTH 18.5 % (11.5-14.0); SEGMENTED NEUTROPHILS % (AUTO) 63.1 % (42-78); TOTAL CELLS COUNTED % (AUTO) 100 %; WHITE BLOOD COUNT 3.6 10^3/uL (4.0-10.5)
[2018-07-04 14:55] LABS: ALANINE AMINOTRANSFERASE 13 U/L (21-72); ALBUMIN 3.3 g/dL (3.5-5.0); ALKALINE PHOSPHATASE 62 U/L (38-126); ANION GAP 7 (5-19); ASPARTATE AMINO TRANSFERASE 17 U/L (17-59); BILIRUBIN,DIRECT 0.6 mg/dL (0.0-0.4); BLOOD UREA NITROGEN 41 mg/dL (7-20); CALCIUM 8.6 mg/dL (8.4-10.2); CARBON DIOXIDE 32 mmol/L (22-30); CHLORIDE 99 mmol/L (98-107); GLUCOSE 104 mg/dL (75-110); POTASSIUM 4.4 mmol/L (3.6-5.0); SODIUM 138.2 mmol/L (137-145); TOTAL PROTEIN 6.9 g/dL (6.3-8.2)
--- NOTE | 2018-07-04 16:40 | PDOC PROGRESS REPORT ---
Subjective Progress Note for:: 07/04/18 Subjective:: Patient's condition about the same Reason For Visit: ANASARCA, ACUTE DIASTOLIC HEART FAILURE Physical Exam Vital Signs: Temp Pulse Resp BP Pulse Ox 97.8 F 103 H 17 96/47 L 97 07/04/18 15:28 07/04/18 15:28 07/04/18 15:28 07/04/18 15:28 07/04/18 15:28 Intake & Output 07/03/18 07/04/18 07/05/18 06:59 06:59 06:59 Intake Total 1542054 Balance 1542054 Weight 200.4 kg 197.1 kg General appearance: PRESENT: no acute distress Eye exam: PRESENT: PERRLA Respiratory exam: PRESENT: clear to auscultation edll Cardiovascular exam: PRESENT: +S1, +S2 GI/Abdominal exam: PRESENT: soft Neurological exam: PRESENT: alert Results Laboratory Results: 07/04/18 14:31 07/04/18 14:31 07/04/18 07/04/18 14:31 14:31 WBC 3.6 L RBC 3.83 L Hgb 9.6 L Hct 30.2 L MCV 79 L MCH 25.1 L MCHC 31.7 L RDW 18.5 H Plt Count 128 L Seg Neutrophils % 63.1 Lymphocytes % 11.5 L Monocytes % 14.4 H Eosinophils % 10.0 H Basophils % 1.0 Absolute Neutrophils 2.3 Absolute Lymphocytes 0.4 L Absolute Monocytes 0.5 Absolute Eosinophils 0.4 Absolute Basophils 0.0 Sodium 138.2 Potassium 4.4 Chloride 99 Carbon Dioxide 32 H Anion Gap 7 BUN 41 H Creatinine 1.74 H Est GFR ( Amer) 50 L Est GFR (Non-Af Amer) 41 L Glucose 104 Calcium 8.6 Total Bilirubin 1.0 AST 17 ALT 13 L Alkaline Phosphatase 62 Total Protein 6.9 Albumin 3.3 L 06/24/18 06/24/18 06/24/18 13:58 19:20 19:20 Creatine Kinase CK-MB (CK-2) Troponin I 0.021 0.019 NT-Pro-B Natriuret Pep 7730 H 7630 H 06/25/18 06/25/18 06/25/18 01:45 01:45 07:15 Creatine Kinase 68 63 CK-MB (CK-2) 0.40 Troponin I 0.020 NT-Pro-B Natriuret Pep 06/25/18 06/25/18 06/25/18 07:15 13:08 13:08 Creatine Kinase 62 CK-MB (CK-2) 0.35 0.40 Troponin I 0.021 0.019 NT-Pro-B Natriuret Pep Impressions: Chest X-Ray 06/24/18 12:40 IMPRESSION: Gross cardiomegaly with right basilar atelectasis, scarring, and/or pleural effusion, similar to prior examination. This may be further evaluated by PA and lateral radiographs or CT if desired. Assessment & Plan - Diagnosis (1) Acute diastolic heart failure Is this a current diagnosis for this admission?: Yes (2) Anasarca Is this a current diagnosis for this admission?: Yes (3) Nephrotic syndrome Is this a current diagnosis for this admission?: Yes (4) Super obesity Is this a current diagnosis for this admission?: Yes (5) Acute hypoxemic respiratory failure Is this a current diagnosis for this admission?: Yes (6) E. coli UTI Is this a current diagnosis for this admission?: Yes
[2018-07-04] MEDS: NORMAL SALINE 250 ML with FUROSEMIDE 250 MG IV PRN ×2 (17:41)
[2018-07-04] MEDS: PHARMACY COMMUNICATION ORDER MC SCH (17:43)
[2018-07-04] MEDS: SIMVASTATIN 10 MG TABLET PO SCH (21:37)
[2018-07-05] MEDS: ACETAMINOPHEN 325 MG TABLET PO PRN (00:52)
[2018-07-05 05:21] LABS: ABSOLUTE EOSINOPHILS # (AUTO) 0.4 10^3/uL (0.0-0.6); ABSOLUTE LYMPHOCYTES (AUTO) 0.5 10^3/uL (0.5-4.7); ABSOLUTE MONOCYTES (AUTO) 0.5 10^3/uL (0.1-1.4); ABSOLUTE NEUT (AUTO) 2.4 10^3/uL (1.7-8.2); BASOPHILS % (AUTO) 0.9 % (0-2); EOSINOPHILS % (AUTO) 9.8 % (0-6); HEMATOCRIT 29.5 % (37.9-51.0); HEMOGLOBIN 9.6 g/dL (13.5-17.0); LYMPHOCYTES % (AUTO) 12.5 % (13-45); MEAN CORPUSCULAR HEMOGLOBIN 25.6 pg (27.0-33.4); MEAN CORPUSCULAR HGB CONC 32.4 g/dL (32.0-36.0); MEAN CORPUSCULAR VOLUME 79 fl (80-97); MONOCYTES % (AUTO) 12.3 % (3-13); PLATELET COUNT 120 10^3/uL (150-450); RED BLOOD COUNT 3.73 10^6/uL (4.35-5.55); RED CELL DISTRIBUTION WIDTH 18.3 % (11.5-14.0); SEGMENTED NEUTROPHILS % (AUTO) 64.5 % (42-78); TOTAL CELLS COUNTED % (AUTO) 100 %; WHITE BLOOD COUNT 3.8 10^3/uL (4.0-10.5)
[2018-07-05 05:44] LABS: ALANINE AMINOTRANSFERASE 11 U/L (21-72); ALBUMIN 3.4 g/dL (3.5-5.0); ALKALINE PHOSPHATASE 62 U/L (38-126); ANION GAP 7 (5-19); ASPARTATE AMINO TRANSFERASE 17 U/L (17-59); BILIRUBIN,DIRECT 0.6 mg/dL (0.0-0.4); BILIRUBIN,TOTAL 0.9 mg/dL (0.2-1.3); BLOOD UREA NITROGEN 45 mg/dL (7-20); CALCIUM 8.6 mg/dL (8.4-10.2); CARBON DIOXIDE 31 mmol/L (22-30); CHLORIDE 100 mmol/L (98-107); GLUCOSE 117 mg/dL (75-110); POTASSIUM 4.5 mmol/L (3.6-5.0); SODIUM 138.2 mmol/L (137-145); TOTAL PROTEIN 6.9 g/dL (6.3-8.2)
[2018-07-05] MEDS: IPRATROPIUM/ALBUTEROL 0.5-2.5 MG/3 ML AMPUL NEB SCH ×3 (07:55→19:42)
[2018-07-05] MEDS: POTASSIUM CHLORIDE 10 MEQ CAPSULE.ER PO SCH (10:29)
[2018-07-05] MEDS: APIXABAN 2.5 MG TABLET PO SCH ×2 (10:29→21:28)
[2018-07-05] MEDS: CIPROFLOXACIN HCL 500 MG TABLET PO SCH ×2 (10:30→21:28)
[2018-07-05] MEDS: SODIUM CHLORIDE NASAL SPRAY 44 ML NASL SCH ×2 (10:30→21:29)
[2018-07-05] MEDS: METOPROLOL TARTRATE 25 MG TABLET PO SCH (10:30)
[2018-07-05] MEDS: DOCUSATE SODIUM 100 MG CAPSULE PO SCH (10:30)
--- NOTE | 2018-07-05 14:42 | PDOC PROGRESS REPORT ---
Subjective Progress Note for:: 07/05/18 Subjective:: Patient's condition about the same Reason For Visit: ANASARCA, ACUTE DIASTOLIC HEART FAILURE Physical Exam Vital Signs: Temp Pulse Resp BP Pulse Ox 97.5 F 75 16 99/68 L 99 07/05/18 07:21 07/05/18 14:00 07/05/18 13:47 07/05/18 07:21 07/05/18 13:47 Intake & Output 07/04/18 07/05/18 07/06/18 06:59 06:59 06:59 Intake Total 2054 1662 Balance 2054 1662 Weight 197.1 kg 197.1 kg General appearance: PRESENT: no acute distress Eye exam: PRESENT: PERRLA Respiratory exam: PRESENT: clear to auscultation dell Cardiovascular exam: PRESENT: +S1, +S2 GI/Abdominal exam: PRESENT: soft Neurological exam: PRESENT: alert Results Laboratory Results: 07/05/18 04:16 07/05/18 04:16 07/04/18 07/04/18 07/05/18 14:31 14:31 04:16 WBC 3.6 L 3.8 L RBC 3.83 L 3.73 L Hgb 9.6 L 9.6 L Hct 30.2 L 29.5 L MCV 79 L 79 L MCH 25.1 L 25.6 L MCHC 31.7 L 32.4 RDW 18.5 H 18.3 H Plt Count 128 L 120 L Seg Neutrophils % 63.1 64.5 Lymphocytes % 11.5 L 12.5 L Monocytes % 14.4 H 12.3 Eosinophils % 10.0 H 9.8 H Basophils % 1.0 0.9 Absolute Neutrophils 2.3 2.4 Absolute Lymphocytes 0.4 L 0.5 Absolute Monocytes 0.5 0.5 Absolute Eosinophils 0.4 0.4 Absolute Basophils 0.0 0.0 Sodium 138.2 Potassium 4.4 Chloride 99 Carbon Dioxide 32 H Anion Gap 7 BUN 41 H Creatinine 1.74 H Est GFR ( Amer) 50 L Est GFR (Non-Af Amer) 41 L Glucose 104 Calcium 8.6 Total Bilirubin 1.0 AST 17 ALT 13 L Alkaline Phosphatase 62 Total Protein 6.9 Albumin 3.3 L 07/05/18 04:16 WBC RBC Hgb Hct MCV MCH MCHC RDW Plt Count Seg Neutrophils % Lymphocytes % Monocytes % Eosinophils % Basophils % Absolute Neutrophils Absolute Lymphocytes Absolute Monocytes Absolute Eosinophils Absolute Basophils Sodium 138.2 Potassium 4.5 Chloride 100 Carbon Dioxide 31 H Anion Gap 7 BUN 45 H Creatinine 1.86 H Est GFR ( Amer) 46 L Est GFR (Non-Af Amer) 38 L Glucose 117 H Calcium 8.6 Total Bilirubin 0.9 AST 17 ALT 11 L Alkaline Phosphatase 62 Total Protein 6.9 Albumin 3.4 L 06/24/18 06/24/18 06/24/18 13:58 19:20 19:20 Creatine Kinase CK-MB (CK-2) Troponin I 0.021 0.019 NT-Pro-B Natriuret Pep 7730 H 7630 H 06/25/18 06/25/18 06/25/18 01:45 01:45 07:15 Creatine Kinase 68 63 CK-MB (CK-2) 0.40 Troponin I 0.020 NT-Pro-B Natriuret Pep 06/25/18 06/25/18 06/25/18 07:15 13:08 13:08 Creatine Kinase 62 CK-MB (CK-2) 0.35 0.40 Troponin I 0.021 0.019 NT-Pro-B Natriuret Pep Impressions: Chest X-Ray 06/24/18 12:40 IMPRESSION: Gross cardiomegaly with right basilar atelectasis, scarring, and/or pleural effusion, similar to prior examination. This may be further evaluated by PA and lateral radiographs or CT if desired. Assessment & Plan - Diagnosis (1) Acute diastolic heart failure Is this a current diagnosis for this admission?: Yes (2) Anasarca Is this a current diagnosis for this admission?: Yes (3) Nephrotic syndrome Is this a current diagnosis for this admission?: Yes (4) Super obesity Is this a current diagnosis for this admission?: Yes (5) Acute hypoxemic respiratory failure Is this a current diagnosis for this admission?: Yes (6) E. coli UTI Is this a current diagnosis for this admission?: Yes
[2018-07-05] MEDS: NORMAL SALINE 250 ML with FUROSEMIDE 250 MG IV PRN ×2 (18:26)
[2018-07-05] MEDS: PHARMACY COMMUNICATION ORDER MC SCH (21:25)
[2018-07-05] MEDS: SIMVASTATIN 10 MG TABLET PO SCH (21:28)
[2018-07-06] MEDS: IPRATROPIUM/ALBUTEROL 0.5-2.5 MG/3 ML AMPUL NEB SCH ×3 (07:49→20:29)
[2018-07-06] MEDS: SODIUM CHLORIDE NASAL SPRAY 44 ML NASL SCH ×2 (10:20→21:55)
[2018-07-06] MEDS: POTASSIUM CHLORIDE 10 MEQ CAPSULE.ER PO SCH (10:21)
[2018-07-06] MEDS: METOPROLOL TARTRATE 25 MG TABLET PO SCH (10:22)
[2018-07-06] MEDS: DOCUSATE SODIUM 100 MG CAPSULE PO SCH (10:22)
[2018-07-06] MEDS: APIXABAN 2.5 MG TABLET PO SCH ×2 (10:23→21:55)
[2018-07-06] MEDS: CIPROFLOXACIN HCL 500 MG TABLET PO SCH ×2 (10:23→21:55)
[2018-07-06 10:30] LABS: ABSOLUTE EOSINOPHILS # (AUTO) 0.4 10^3/uL (0.0-0.6); ABSOLUTE LYMPHOCYTES (AUTO) 0.5 10^3/uL (0.5-4.7); ABSOLUTE MONOCYTES (AUTO) 0.5 10^3/uL (0.1-1.4); ABSOLUTE NEUT (AUTO) 2.4 10^3/uL (1.7-8.2); BASOPHILS % (AUTO) 1.2 % (0-2); EOSINOPHILS % (AUTO) 11.1 % (0-6); HEMATOCRIT 29.1 % (37.9-51.0); HEMOGLOBIN 9.3 g/dL (13.5-17.0); LYMPHOCYTES % (AUTO) 12.4 % (13-45); MEAN CORPUSCULAR HEMOGLOBIN 25.4 pg (27.0-33.4); MEAN CORPUSCULAR HGB CONC 32.1 g/dL (32.0-36.0); MEAN CORPUSCULAR VOLUME 79 fl (80-97); MONOCYTES % (AUTO) 12.3 % (3-13); PLATELET COUNT 127 10^3/uL (150-450); RED BLOOD COUNT 3.67 10^6/uL (4.35-5.55); RED CELL DISTRIBUTION WIDTH 18.3 % (11.5-14.0); TOTAL CELLS COUNTED % (AUTO) 100 %; WHITE BLOOD COUNT 3.7 10^3/uL (4.0-10.5)
[2018-07-06 10:41] LABS: ALANINE AMINOTRANSFERASE 17 U/L (21-72); ALBUMIN 3.3 g/dL (3.5-5.0); ALKALINE PHOSPHATASE 62 U/L (38-126); ANION GAP 7 (5-19); ASPARTATE AMINO TRANSFERASE 15 U/L (17-59); BILIRUBIN,DIRECT 0.6 mg/dL (0.0-0.4); BILIRUBIN,TOTAL 1.1 mg/dL (0.2-1.3); BLOOD UREA NITROGEN 46 mg/dL (7-20); CALCIUM 8.5 mg/dL (8.4-10.2); CARBON DIOXIDE 34 mmol/L (22-30); CHLORIDE 100 mmol/L (98-107); GLUCOSE 108 mg/dL (75-110); POTASSIUM 4.2 mmol/L (3.6-5.0); SODIUM 141.1 mmol/L (137-145)
--- NOTE | 2018-07-06 15:02 | PDOC PROGRESS REPORT ---
Subjective Progress Note for:: 07/06/18 Subjective:: Patient's condition about the same Reason For Visit: ANASARCA, ACUTE DIASTOLIC HEART FAILURE Physical Exam Vital Signs: Temp Pulse Resp BP Pulse Ox 97.6 F 101 H 18 94/53 L 96 07/06/18 11:37 07/06/18 13:05 07/06/18 13:05 07/06/18 11:37 07/06/18 13:05 Intake & Output 07/05/18 07/06/18 07/07/18 06:59 06:59 06:59 Intake Total 1663 2275 886 Balance 1663 2275 886 Weight 197.1 kg 198.3 kg General appearance: PRESENT: no acute distress Eye exam: PRESENT: PERRLA Respiratory exam: PRESENT: rhonchi Cardiovascular exam: PRESENT: +S1, +S2 GI/Abdominal exam: PRESENT: soft Neurological exam: PRESENT: alert Results Laboratory Results: 07/06/18 10:15 07/06/18 10:15 07/06/18 07/06/18 10:15 10:15 WBC 3.7 L RBC 3.67 L Hgb 9.3 L Hct 29.1 L MCV 79 L MCH 25.4 L MCHC 32.1 RDW 18.3 H Plt Count 127 L Seg Neutrophils % 63.0 Lymphocytes % 12.4 L Monocytes % 12.3 Eosinophils % 11.1 H Basophils % 1.2 Absolute Neutrophils 2.4 Absolute Lymphocytes 0.5 Absolute Monocytes 0.5 Absolute Eosinophils 0.4 Absolute Basophils 0.0 Sodium 141.1 Potassium 4.2 Chloride 100 Carbon Dioxide 34 H Anion Gap 7 BUN 46 H Creatinine 1.82 H Est GFR ( Amer) 47 L Est GFR (Non-Af Amer) 39 L Glucose 108 Calcium 8.5 Total Bilirubin 1.1 AST 15 L ALT 17 L Alkaline Phosphatase 62 Total Protein 7.0 Albumin 3.3 L 06/24/18 06/24/18 06/24/18 13:58 19:20 19:20 Creatine Kinase CK-MB (CK-2) Troponin I 0.021 0.019 NT-Pro-B Natriuret Pep 7730 H 7630 H 06/25/18 06/25/18 06/25/18 01:45 01:45 07:15 Creatine Kinase 68 63 CK-MB (CK-2) 0.40 Troponin I 0.020 NT-Pro-B Natriuret Pep 06/25/18 06/25/18 06/25/18 07:15 13:08 13:08 Creatine Kinase 62 CK-MB (CK-2) 0.35 0.40 Troponin I 0.021 0.019 NT-Pro-B Natriuret Pep Impressions: Chest X-Ray 06/24/18 12:40 IMPRESSION: Gross cardiomegaly with right basilar atelectasis, scarring, and/or pleural effusion, similar to prior examination. This may be further evaluated by PA and lateral radiographs or CT if desired. Assessment & Plan - Diagnosis (1) Acute diastolic heart failure Is this a current diagnosis for this admission?: Yes (2) Anasarca Is this a current diagnosis for this admission?: Yes (3) Nephrotic syndrome Is this a current diagnosis for this admission?: Yes (4) Super obesity Is this a current diagnosis for this admission?: Yes (5) Acute hypoxemic respiratory failure Is this a current diagnosis for this admission?: Yes (6) E. coli UTI Is this a current diagnosis for this admission?: Yes - Plan Summary Plan Summary: Continue treatment
[2018-07-06] MEDS: NORMAL SALINE 250 ML with FUROSEMIDE 250 MG IV PRN ×2 (18:22)
[2018-07-06] MEDS: PHARMACY COMMUNICATION ORDER MC SCH (19:36)
[2018-07-06] MEDS: SIMVASTATIN 10 MG TABLET PO SCH (21:55)
[2018-07-07] MEDS: IPRATROPIUM/ALBUTEROL 0.5-2.5 MG/3 ML AMPUL NEB SCH ×3 (07:47→19:55)
[2018-07-07] MEDS: CIPROFLOXACIN HCL 500 MG TABLET PO SCH (09:53)
[2018-07-07] MEDS: DOCUSATE SODIUM 100 MG CAPSULE PO SCH (09:53)
[2018-07-07] MEDS: POTASSIUM CHLORIDE 10 MEQ CAPSULE.ER PO SCH (09:53)
[2018-07-07] MEDS: APIXABAN 2.5 MG TABLET PO SCH ×2 (09:54→22:03)
[2018-07-07] MEDS: METOPROLOL TARTRATE 25 MG TABLET PO SCH (09:54)
[2018-07-07] MEDS: SODIUM CHLORIDE NASAL SPRAY 44 ML NASL SCH ×3 (09:54→22:04)
[2018-07-07] MEDS: NORMAL SALINE 250 ML with FUROSEMIDE 250 MG IV PRN ×2 (16:41)
[2018-07-07] MEDS: PHARMACY COMMUNICATION ORDER MC SCH (17:25)
[2018-07-07] MEDS: SIMVASTATIN 10 MG TABLET PO SCH (22:03)
--- NOTE | 2018-07-07 22:25 | PDOC PROGRESS REPORT ---
Subjective Progress Note for:: 07/07/18 Subjective:: Patient is alert still requiring IV furosemide infusion Reason For Visit: ANASARCA, ACUTE DIASTOLIC HEART FAILURE Physical Exam Vital Signs: Temp Pulse Resp BP Pulse Ox 98.3 F 76 18 106/64 98 07/07/18 15:57 07/07/18 20:00 07/07/18 20:00 07/07/18 15:57 07/07/18 20:00 Intake & Output 07/06/18 07/07/18 07/08/18 06:59 06:59 06:59 Intake Total 2275 1520 988 Balance 2275 1520 988 Weight 198.3 kg 200.5 kg General appearance: PRESENT: no acute distress Eye exam: PRESENT: PERRLA Respiratory exam: PRESENT: clear to auscultation dell Cardiovascular exam: PRESENT: +S1, +S2 GI/Abdominal exam: PRESENT: soft Results Laboratory Results: 07/06/18 10:15 07/06/18 10:15 06/24/18 06/24/18 06/24/18 13:58 19:20 19:20 Creatine Kinase CK-MB (CK-2) Troponin I 0.021 0.019 NT-Pro-B Natriuret Pep 7730 H 7630 H 06/25/18 06/25/18 06/25/18 01:45 01:45 07:15 Creatine Kinase 68 63 CK-MB (CK-2) 0.40 Troponin I 0.020 NT-Pro-B Natriuret Pep 06/25/18 06/25/18 06/25/18 07:15 13:08 13:08 Creatine Kinase 62 CK-MB (CK-2) 0.35 0.40 Troponin I 0.021 0.019 NT-Pro-B Natriuret Pep Impressions: Chest X-Ray 06/24/18 12:40 IMPRESSION: Gross cardiomegaly with right basilar atelectasis, scarring, and/or pleural effusion, similar to prior examination. This may be further evaluated by PA and lateral radiographs or CT if desired. Assessment & Plan - Diagnosis (1) Acute diastolic heart failure Is this a current diagnosis for this admission?: Yes (2) Anasarca Is this a current diagnosis for this admission?: Yes (3) Nephrotic syndrome Is this a current diagnosis for this admission?: Yes (4) Super obesity Is this a current diagnosis for this admission?: Yes (5) Acute hypoxemic respiratory failure Is this a current diagnosis for this admission?: Yes (6) E. coli UTI Is this a current diagnosis for this admission?: Yes
[2018-07-08] MEDS: IPRATROPIUM/ALBUTEROL 0.5-2.5 MG/3 ML AMPUL NEB SCH ×3 (08:28→20:51)
[2018-07-08] MEDS: POTASSIUM CHLORIDE 10 MEQ CAPSULE.ER PO SCH (09:54)
[2018-07-08] MEDS: METOPROLOL TARTRATE 25 MG TABLET PO SCH (09:56)
[2018-07-08] MEDS: DOCUSATE SODIUM 100 MG CAPSULE PO SCH (09:57)
[2018-07-08] MEDS: SODIUM CHLORIDE NASAL SPRAY 44 ML NASL SCH ×2 (09:57→21:56)
[2018-07-08] MEDS: APIXABAN 2.5 MG TABLET PO SCH ×2 (09:57→21:56)
[2018-07-08] MEDS: POLYVINYL ALCOHOL 1.4% OPH SOLN 15 ML OU PRN ×3 (09:58→21:59)
[2018-07-08] MEDS: NORMAL SALINE 250 ML with FUROSEMIDE 250 MG IV PRN ×2 (15:39)
[2018-07-08] MEDS: PHARMACY COMMUNICATION ORDER MC SCH (16:08)
--- NOTE | 2018-07-08 21:33 | PDOC PROGRESS REPORT ---
Subjective Progress Note for:: 07/08/18 Subjective:: Patient has tremendous anasarca requiring continuous IV Lasix infusion Reason For Visit: ANASARCA, ACUTE DIASTOLIC HEART FAILURE Physical Exam Vital Signs: Temp Pulse Resp BP Pulse Ox 97.6 F 131 H 18 100/56 L 94 07/08/18 19:25 07/08/18 19:25 07/08/18 19:25 07/08/18 19:25 07/08/18 19:25 Intake & Output 07/07/18 07/08/18 07/09/18 06:59 06:59 06:59 Intake Total 1520 1908 850 Balance 1520 1908 850 Weight 200.5 kg 191.2 kg General appearance: PRESENT: no acute distress Eye exam: PRESENT: PERRLA Respiratory exam: PRESENT: rhonchi Cardiovascular exam: PRESENT: +S1, +S2 GI/Abdominal exam: PRESENT: soft Neurological exam: PRESENT: alert Results Laboratory Results: 07/06/18 10:15 07/06/18 10:15 06/24/18 06/24/18 06/24/18 13:58 19:20 19:20 Creatine Kinase CK-MB (CK-2) Troponin I 0.021 0.019 NT-Pro-B Natriuret Pep 7730 H 7630 H 06/25/18 06/25/18 06/25/18 01:45 01:45 07:15 Creatine Kinase 68 63 CK-MB (CK-2) 0.40 Troponin I 0.020 NT-Pro-B Natriuret Pep 06/25/18 06/25/18 06/25/18 07:15 13:08 13:08 Creatine Kinase 62 CK-MB (CK-2) 0.35 0.40 Troponin I 0.021 0.019 NT-Pro-B Natriuret Pep Impressions: Chest X-Ray 06/24/18 12:40 IMPRESSION: Gross cardiomegaly with right basilar atelectasis, scarring, and/or pleural effusion, similar to prior examination. This may be further evaluated by PA and lateral radiographs or CT if desired. Assessment & Plan - Diagnosis (1) Acute diastolic heart failure Is this a current diagnosis for this admission?: Yes (2) Anasarca Is this a current diagnosis for this admission?: Yes (3) Nephrotic syndrome Is this a current diagnosis for this admission?: Yes (4) Super obesity Is this a current diagnosis for this admission?: Yes (5) Acute hypoxemic respiratory failure Is this a current diagnosis for this admission?: Yes (6) E. coli UTI Is this a current diagnosis for this admission?: Yes
[2018-07-08] MEDS: SIMVASTATIN 10 MG TABLET PO SCH (21:56)
[2018-07-08] MEDS ORDERED: GUAIFENESIN 600 MG TABLET.SA PO SCH (23:00)
[2018-07-09] MEDS: ACETAMINOPHEN 325 MG TABLET PO PRN ×2 (00:13→20:22)
[2018-07-09] MEDS: POLYVINYL ALCOHOL 1.4% OPH SOLN 15 ML OU PRN ×4 (05:21→21:55)
[2018-07-09] MEDS: IPRATROPIUM/ALBUTEROL 0.5-2.5 MG/3 ML AMPUL NEB SCH ×3 (08:34→19:55)
[2018-07-09] MEDS: APIXABAN 2.5 MG TABLET PO SCH ×2 (10:34→21:13)
[2018-07-09] MEDS: POTASSIUM CHLORIDE 10 MEQ CAPSULE.ER PO SCH (10:35)
[2018-07-09] MEDS: METOPROLOL TARTRATE 25 MG TABLET PO SCH (10:35)
[2018-07-09] MEDS: DOCUSATE SODIUM 100 MG CAPSULE PO SCH (10:35)
[2018-07-09] MEDS: GUAIFENESIN 600 MG TABLET.SA PO SCH ×2 (10:35→21:13)
[2018-07-09] MEDS: SODIUM CHLORIDE NASAL SPRAY 44 ML NASL SCH ×2 (10:36→21:13)
--- NOTE | 2018-07-09 13:30 | PDOC PROGRESS REPORT ---
Subjective Progress Note for:: 07/09/18 Subjective:: Was admitted as usual for the anesthetic and congestive heart failure Currently on a Lasix drip According to the patient he feels much better and the swelling is much going down Patient is denied any chest pain to than any shortness of the breath Reason For Visit: ANASARCA, ACUTE DIASTOLIC HEART FAILURE Physical Exam Vital Signs: Temp Pulse Resp BP Pulse Ox 98.3 F 86 18 104/50 L 98 07/09/18 08:00 07/09/18 08:34 07/09/18 08:34 07/09/18 08:00 07/09/18 08:34 Intake & Output 07/08/18 07/09/18 07/10/18 06:59 06:59 06:59 Intake Total 1908 1074 Balance 1908 1074 Weight 191.2 kg 186.2 kg General appearance: PRESENT: no acute distress, well-developed, well-nourished Head exam: PRESENT: atraumatic, normocephalic Eye exam: PRESENT: conjunctiva pink, EOMI, PERRLA. ABSENT: scleral icterus Ear exam: PRESENT: normal external ear exam Mouth exam: PRESENT: moist, tongue midline Neck exam: PRESENT: full ROM. ABSENT: carotid bruit, JVD, lymphadenopathy, thyromegaly Respiratory exam: PRESENT: decreased breath sounds Cardiovascular exam: PRESENT: RRR. ABSENT: diastolic murmur, rubs, systolic murmur Pulses: PRESENT: normal dorsalis pedis pul, +2 pedal pulses bilateral Vascular exam: PRESENT: normal capillary refill GI/Abdominal exam: PRESENT: normal bowel sounds, soft. ABSENT: distended, guarding, mass, organolmegaly, rebound, tenderness Rectal exam: PRESENT: deferred Neurological exam: PRESENT: alert, awake, oriented to person, oriented to place, oriented to time, oriented to situation. ABSENT: motor sensory deficit Psychiatric exam: PRESENT: appropriate affect, normal mood. ABSENT: homicidal ideation, suicidal ideation Skin exam: PRESENT: dry, intact, warm. ABSENT: cyanosis, rash Results Laboratory Results: 07/06/18 10:15 07/06/18 10:15 06/24/18 06/24/18 06/24/18 13:58 19:20 19:20 Creatine Kinase CK-MB (CK-2) Troponin I 0.021 0.019 NT-Pro-B Natriuret Pep 7730 H 7630 H 06/25/18 06/25/18 06/25/18 01:45 01:45 07:15 Creatine Kinase 68 63 CK-MB (CK-2) 0.40 Troponin I 0.020 NT-Pro-B Natriuret Pep 06/25/18 06/25/18 06/25/18 07:15 13:08 13:08 Creatine Kinase 62 CK-MB (CK-2) 0.35 0.40 Troponin I 0.021 0.019 NT-Pro-B Natriuret Pep Impressions: Chest X-Ray 06/24/18 12:40 IMPRESSION: Gross cardiomegaly with right basilar atelectasis, scarring, and/or pleural effusion, similar to prior examination. This may be further evaluated by PA and lateral radiographs or CT if desired. Assessment & Plan - Diagnosis (1) Acute diastolic heart failure Is this a current diagnosis for this admission?: Yes Plan: Continues on Lasix drips. adust according to the patient's kidney functions (2) Anasarca Is this a current diagnosis for this admission?: Yes Plan: on IV Lasix drip (3) Anemia of chronic disease Is this a current diagnosis for this admission?: Yes (4) Nephrotic syndrome Is this a current diagnosis for this admission?: Yes - Time Time Spent with patient: 15-24 minutes Medications reviewed and adjusted accordingly: Yes Anticipated discharge: Other Within: Other - Plan Summary Plan Summary: on Lasix drips continues to use the BiPAP
[2018-07-09] MEDS: NORMAL SALINE 250 ML with FUROSEMIDE 250 MG IV PRN ×2 (17:58)
[2018-07-09] MEDS: PHARMACY COMMUNICATION ORDER MC SCH (19:36)
[2018-07-09] MEDS: SIMVASTATIN 10 MG TABLET PO SCH (21:13)
[2018-07-10 06:48] LABS: ABSOLUTE EOSINOPHILS # (AUTO) 0.4 10^3/uL (0.0-0.6); ABSOLUTE LYMPHOCYTES (AUTO) 0.5 10^3/uL (0.5-4.7); ABSOLUTE MONOCYTES (AUTO) 0.5 10^3/uL (0.1-1.4); ABSOLUTE NEUT (AUTO) 2.6 10^3/uL (1.7-8.2); BASOPHILS % (AUTO) 1.1 % (0-2); EOSINOPHILS % (AUTO) 9.9 % (0-6); HEMATOCRIT 28.8 % (37.9-51.0); HEMOGLOBIN 9.3 g/dL (13.5-17.0); MEAN CORPUSCULAR HEMOGLOBIN 25.7 pg (27.0-33.4); MEAN CORPUSCULAR HGB CONC 32.4 g/dL (32.0-36.0); MEAN CORPUSCULAR VOLUME 79 fl (80-97); MONOCYTES % (AUTO) 11.6 % (3-13); PLATELET COUNT 143 10^3/uL (150-450); RED BLOOD COUNT 3.63 10^6/uL (4.35-5.55); RED CELL DISTRIBUTION WIDTH 18.4 % (11.5-14.0); SEGMENTED NEUTROPHILS % (AUTO) 65.4 % (42-78); TOTAL CELLS COUNTED % (AUTO) 100 %
[2018-07-10 07:07] LABS: ANION GAP 10 (5-19); BLOOD UREA NITROGEN 51 mg/dL (7-20); CALCIUM 8.7 mg/dL (8.4-10.2); CARBON DIOXIDE 29 mmol/L (22-30); CHLORIDE 102 mmol/L (98-107); GLUCOSE 105 mg/dL (75-110); POTASSIUM 4.1 mmol/L (3.6-5.0); SODIUM 140.5 mmol/L (137-145)
[2018-07-10] MEDS: POLYVINYL ALCOHOL 1.4% OPH SOLN 15 ML OU PRN ×2 (08:19→13:12)
[2018-07-10] MEDS: IPRATROPIUM/ALBUTEROL 0.5-2.5 MG/3 ML AMPUL NEB SCH ×3 (08:31→20:07)
[2018-07-10] MEDS: POTASSIUM CHLORIDE 10 MEQ CAPSULE.ER PO SCH (10:34)
[2018-07-10] MEDS: METOPROLOL TARTRATE 25 MG TABLET PO SCH (10:35)
[2018-07-10] MEDS: DOCUSATE SODIUM 100 MG CAPSULE PO SCH (10:35)
[2018-07-10] MEDS: APIXABAN 2.5 MG TABLET PO SCH ×2 (10:35→22:38)
[2018-07-10] MEDS: GUAIFENESIN 600 MG TABLET.SA PO SCH ×2 (10:35→22:39)
[2018-07-10] MEDS: SODIUM CHLORIDE NASAL SPRAY 44 ML NASL SCH ×2 (10:35→22:40)
--- NOTE | 2018-07-10 11:59 | PDOC PROGRESS REPORT ---
Subjective Progress Note for:: 07/10/18 Subjective:: Was admitted as usual for the anesthetic and congestive heart failure Currently on a Lasix drip According to the patient he feels much better and the swelling is much going down Patient is denied any chest pain to than any shortness of the breath Reason For Visit: ANASARCA, ACUTE DIASTOLIC HEART FAILURE Physical Exam Vital Signs: Temp Pulse Resp BP Pulse Ox 97.5 F 84 18 104/62 100 07/10/18 08:28 07/10/18 08:28 07/10/18 08:28 07/10/18 08:28 07/10/18 08:28 Intake & Output 07/09/18 07/10/18 07/11/18 06:59 06:59 06:59 Intake Total 1074 3252 Balance 1074 3252 Weight 186.2 kg 185.3 kg General appearance: PRESENT: no acute distress, well-developed, well-nourished Head exam: PRESENT: atraumatic, normocephalic Eye exam: PRESENT: conjunctiva pink, EOMI, PERRLA. ABSENT: scleral icterus Ear exam: PRESENT: normal external ear exam Mouth exam: PRESENT: moist, tongue midline Neck exam: PRESENT: full ROM. ABSENT: carotid bruit, JVD, lymphadenopathy, thyromegaly Respiratory exam: PRESENT: decreased breath sounds Cardiovascular exam: PRESENT: RRR. ABSENT: diastolic murmur, rubs, systolic murmur Vascular exam: PRESENT: normal capillary refill GI/Abdominal exam: PRESENT: normal bowel sounds, soft. ABSENT: distended, guarding, mass, organolmegaly, rebound, tenderness Rectal exam: PRESENT: deferred Extremities exam: PRESENT: pedal edema Neurological exam: PRESENT: alert, awake, oriented to person, oriented to place, oriented to time, oriented to situation, CN II-XII grossly intact. ABSENT: motor sensory deficit Psychiatric exam: PRESENT: appropriate affect, normal mood. ABSENT: homicidal ideation, suicidal ideation Skin exam: PRESENT: dry, intact, warm. ABSENT: cyanosis, rash Results Laboratory Results: 07/10/18 06:15 07/10/18 06:15 07/10/18 07/10/18 06:15 06:15 WBC 4.0 RBC 3.63 L Hgb 9.3 L Hct 28.8 L MCV 79 L MCH 25.7 L MCHC 32.4 RDW 18.4 H Plt Count 143 L Seg Neutrophils % 65.4 Lymphocytes % 12.0 L Monocytes % 11.6 Eosinophils % 9.9 H Basophils % 1.1 Absolute Neutrophils 2.6 Absolute Lymphocytes 0.5 Absolute Monocytes 0.5 Absolute Eosinophils 0.4 Absolute Basophils 0.0 Sodium 140.5 Potassium 4.1 Chloride 102 Carbon Dioxide 29 Anion Gap 10 BUN 51 H Creatinine 1.62 H Est GFR ( Amer) 54 L Est GFR (Non-Af Amer) 44 L Glucose 105 Calcium 8.7 06/24/18 06/24/18 06/24/18 13:58 19:20 19:20 Creatine Kinase CK-MB (CK-2) Troponin I 0.021 0.019 NT-Pro-B Natriuret Pep 7730 H 7630 H 06/25/18 06/25/18 06/25/18 01:45 01:45 07:15 Creatine Kinase 68 63 CK-MB (CK-2) 0.40 Troponin I 0.020 NT-Pro-B Natriuret Pep 06/25/18 06/25/18 06/25/18 07:15 13:08 13:08 Creatine Kinase 62 CK-MB (CK-2) 0.35 0.40 Troponin I 0.021 0.019 NT-Pro-B Natriuret Pep Impressions: Chest X-Ray 06/24/18 12:40 IMPRESSION: Gross cardiomegaly with right basilar atelectasis, scarring, and/or pleural effusion, similar to prior examination. This may be further evaluated by PA and lateral radiographs or CT if desired. Assessment & Plan - Diagnosis (1) Acute diastolic heart failure Is this a current diagnosis for this admission?: Yes Plan: Continues on Lasix drips. adust according to the patient's kidney functions (2) Anasarca Is this a current diagnosis for this admission?: Yes Plan: on IV Lasix drip (3) Anemia of chronic disease Is this a current diagnosis for this admission?: Yes (4) Nephrotic syndrome Is this a current diagnosis for this admission?: Yes - Time Time Spent with patient: 15-24 minutes Medications reviewed and adjusted accordingly: Yes Anticipated discharge: Home - Plan Summary Plan Summary: Continues to current IV Lasix drip
[2018-07-10] MEDS: NORMAL SALINE 250 ML with FUROSEMIDE 250 MG IV PRN ×2 (15:04)
[2018-07-10] MEDS: PHARMACY COMMUNICATION ORDER MC SCH (17:13)
[2018-07-10] MEDS: SIMVASTATIN 10 MG TABLET PO SCH (22:41)
[2018-07-11] MEDS: POLYVINYL ALCOHOL 1.4% OPH SOLN 15 ML OU PRN (00:13)
[2018-07-11] MEDS: ACETAMINOPHEN 325 MG TABLET PO PRN (00:54)
[2018-07-11 05:46] LABS: ABSOLUTE EOSINOPHILS # (AUTO) 0.4 10^3/uL (0.0-0.6); ABSOLUTE LYMPHOCYTES (AUTO) 0.5 10^3/uL (0.5-4.7); ABSOLUTE MONOCYTES (AUTO) 0.5 10^3/uL (0.1-1.4); ABSOLUTE NEUT (AUTO) 2.4 10^3/uL (1.7-8.2); BASOPHILS % (AUTO) 1.3 % (0-2); EOSINOPHILS % (AUTO) 9.9 % (0-6); HEMATOCRIT 27.7 % (37.9-51.0); HEMOGLOBIN 8.9 g/dL (13.5-17.0); LYMPHOCYTES % (AUTO) 12.4 % (13-45); MEAN CORPUSCULAR HEMOGLOBIN 25.6 pg (27.0-33.4); MEAN CORPUSCULAR HGB CONC 32.2 g/dL (32.0-36.0); MEAN CORPUSCULAR VOLUME 80 fl (80-97); MONOCYTES % (AUTO) 14.2 % (3-13); PLATELET COUNT 136 10^3/uL (150-450); RED BLOOD COUNT 3.49 10^6/uL (4.35-5.55); RED CELL DISTRIBUTION WIDTH 18.7 % (11.5-14.0); SEGMENTED NEUTROPHILS % (AUTO) 62.2 % (42-78); TOTAL CELLS COUNTED % (AUTO) 100 %; WHITE BLOOD COUNT 3.8 10^3/uL (4.0-10.5)
[2018-07-11 06:04] LABS: ANION GAP 6 (5-19); BLOOD UREA NITROGEN 49 mg/dL (7-20); CALCIUM 8.6 mg/dL (8.4-10.2); CARBON DIOXIDE 33 mmol/L (22-30); CHLORIDE 101 mmol/L (98-107); GLUCOSE 106 mg/dL (75-110); POTASSIUM 4.2 mmol/L (3.6-5.0); SODIUM 139.8 mmol/L (137-145)
[2018-07-11] MEDS: IPRATROPIUM/ALBUTEROL 0.5-2.5 MG/3 ML AMPUL NEB SCH ×3 (08:08→20:30)
[2018-07-11] MEDS: METOPROLOL TARTRATE 25 MG TABLET PO SCH (09:25)
[2018-07-11] MEDS: DOCUSATE SODIUM 100 MG CAPSULE PO SCH (09:25)
[2018-07-11] MEDS: POTASSIUM CHLORIDE 10 MEQ CAPSULE.ER PO SCH (09:25)
[2018-07-11] MEDS: SODIUM CHLORIDE NASAL SPRAY 44 ML NASL SCH ×2 (09:27→22:18)
[2018-07-11] MEDS: APIXABAN 2.5 MG TABLET PO SCH ×2 (09:27→21:59)
[2018-07-11] MEDS: GUAIFENESIN 600 MG TABLET.SA PO SCH ×2 (09:27→22:00)
--- NOTE | 2018-07-11 11:46 | PDOC PROGRESS REPORT ---
Subjective Progress Note for:: 07/11/18 Subjective:: Was admitted as usual for the anesthetic and congestive heart failure Currently on a Lasix drip According to the patient he feels much better and the swelling is much going down Patient is denied any chest pain to than any shortness of the breath Reason For Visit: ANASARCA, ACUTE DIASTOLIC HEART FAILURE Physical Exam Vital Signs: Temp Pulse Resp BP Pulse Ox 97.6 F 110 H 17 106/61 100 07/11/18 08:35 07/11/18 08:35 07/11/18 08:35 07/11/18 08:35 07/11/18 08:35 Intake & Output 07/10/18 07/11/18 07/12/18 06:59 06:59 06:59 Intake Total 3252 3082 Balance 3252 3082 Weight 185.3 kg 186.7 kg General appearance: PRESENT: no acute distress, morbidly obese, well-developed, well-nourished Head exam: PRESENT: atraumatic, normocephalic Eye exam: PRESENT: conjunctiva pink, EOMI, PERRLA. ABSENT: scleral icterus Ear exam: PRESENT: normal external ear exam Mouth exam: PRESENT: moist, tongue midline Neck exam: PRESENT: full ROM. ABSENT: carotid bruit, JVD, lymphadenopathy, thyromegaly Respiratory exam: PRESENT: clear to auscultation dell Cardiovascular exam: PRESENT: RRR. ABSENT: diastolic murmur, rubs, systolic murmur Vascular exam: PRESENT: normal capillary refill GI/Abdominal exam: PRESENT: normal bowel sounds, soft. ABSENT: distended, guarding, mass, organolmegaly, rebound, tenderness Rectal exam: PRESENT: deferred Extremities exam: PRESENT: pedal edema Neurological exam: PRESENT: alert, awake, oriented to person, oriented to place, oriented to time, oriented to situation, CN II-XII grossly intact. ABSENT: motor sensory deficit Psychiatric exam: PRESENT: appropriate affect, normal mood. ABSENT: homicidal ideation, suicidal ideation Skin exam: PRESENT: dry, intact, warm. ABSENT: cyanosis, rash Results Laboratory Results: 07/11/18 05:26 07/11/18 05:26 07/11/18 07/11/18 05:26 05:26 WBC 3.8 L RBC 3.49 L Hgb 8.9 L Hct 27.7 L MCV 80 MCH 25.6 L MCHC 32.2 RDW 18.7 H Plt Count 136 L Seg Neutrophils % 62.2 Lymphocytes % 12.4 L Monocytes % 14.2 H Eosinophils % 9.9 H Basophils % 1.3 Absolute Neutrophils 2.4 Absolute Lymphocytes 0.5 Absolute Monocytes 0.5 Absolute Eosinophils 0.4 Absolute Basophils 0.0 Sodium 139.8 Potassium 4.2 Chloride 101 Carbon Dioxide 33 H Anion Gap 6 BUN 49 H Creatinine 1.78 H Est GFR ( Amer) 48 L Est GFR (Non-Af Amer) 40 L Glucose 106 Calcium 8.6 06/24/18 06/24/18 06/24/18 13:58 19:20 19:20 Creatine Kinase CK-MB (CK-2) Troponin I 0.021 0.019 NT-Pro-B Natriuret Pep 7730 H 7630 H 06/25/18 06/25/18 06/25/18 01:45 01:45 07:15 Creatine Kinase 68 63 CK-MB (CK-2) 0.40 Troponin I 0.020 NT-Pro-B Natriuret Pep 06/25/18 06/25/18 06/25/18 07:15 13:08 13:08 Creatine Kinase 62 CK-MB (CK-2) 0.35 0.40 Troponin I 0.021 0.019 NT-Pro-B Natriuret Pep Impressions: Chest X-Ray 06/24/18 12:40 IMPRESSION: Gross cardiomegaly with right basilar atelectasis, scarring, and/or pleural effusion, similar to prior examination. This may be further evaluated by PA and lateral radiographs or CT if desired. Assessment & Plan - Diagnosis (1) Acute diastolic heart failure Is this a current diagnosis for this admission?: Yes Plan: Continues on Lasix drips. adust according to the patient's kidney functions (2) Anasarca Is this a current diagnosis for this admission?: Yes Plan: Reduce the IV Lasix drip (3) Anemia of chronic disease Is this a current diagnosis for this admission?: Yes (4) Nephrotic syndrome Is this a current diagnosis for this admission?: Yes - Time Time Spent with patient: 15-24 minutes Medications reviewed and adjusted accordingly: Yes Anticipated discharge: Home - Plan Summary Plan Summary: Reduce the IV Lasix monitor the patient's BUN and creatinine
[2018-07-11] MEDS: NORMAL SALINE 250 ML with FUROSEMIDE 250 MG IV PRN ×2 (12:05)
[2018-07-11] MEDS: PHARMACY COMMUNICATION ORDER MC SCH (17:11)
[2018-07-11] MEDS: SIMVASTATIN 10 MG TABLET PO SCH (22:00)
[2018-07-12] MEDS: IPRATROPIUM/ALBUTEROL 0.5-2.5 MG/3 ML AMPUL NEB SCH ×3 (07:40→19:44)
[2018-07-12 07:45] LABS: ANION GAP 6 (5-19); BLOOD UREA NITROGEN 56 mg/dL (7-20); CALCIUM 8.5 mg/dL (8.4-10.2); CARBON DIOXIDE 31 mmol/L (22-30); CHLORIDE 101 mmol/L (98-107); GLUCOSE 91 mg/dL (75-110); POTASSIUM 4.4 mmol/L (3.6-5.0); SODIUM 138.2 mmol/L (137-145)
[2018-07-12] MEDS: APIXABAN 2.5 MG TABLET PO SCH ×2 (10:18→22:21)
[2018-07-12] MEDS: DOCUSATE SODIUM 100 MG CAPSULE PO SCH (10:18)
[2018-07-12] MEDS: METOPROLOL TARTRATE 25 MG TABLET PO SCH (10:18)
[2018-07-12] MEDS: GUAIFENESIN 600 MG TABLET.SA PO SCH ×2 (10:19→22:20)
[2018-07-12] MEDS: POTASSIUM CHLORIDE 10 MEQ CAPSULE.ER PO SCH (10:19)
[2018-07-12] MEDS: SODIUM CHLORIDE NASAL SPRAY 44 ML NASL SCH ×2 (10:19→22:21)
[2018-07-12] MEDS: POLYVINYL ALCOHOL 1.4% OPH SOLN 15 ML OU PRN (10:20)
--- NOTE | 2018-07-12 12:02 | PDOC PROGRESS REPORT ---
Subjective Progress Note for:: 07/12/18 Subjective:: Was admitted as usual for the anesthetic and congestive heart failure Currently on a Lasix drip According to the patient he feels much better and the swelling is much going down Patient is denied any chest pain to than any shortness of the breath Reason For Visit: ANASARCA, ACUTE DIASTOLIC HEART FAILURE Physical Exam Vital Signs: Temp Pulse Resp BP Pulse Ox 98.1 F 83 18 101/56 L 100 07/12/18 07:39 07/12/18 07:40 07/12/18 07:40 07/12/18 07:39 07/12/18 07:40 Intake & Output 07/11/18 07/12/18 07/13/18 06:59 06:59 06:59 Intake Total 3082 1942 Balance 3082 1942 Weight 186.7 kg 203.4 kg General appearance: PRESENT: no acute distress, well-developed, well-nourished Head exam: PRESENT: atraumatic, normocephalic Eye exam: PRESENT: conjunctiva pink, EOMI, PERRLA. ABSENT: scleral icterus Ear exam: PRESENT: normal external ear exam Mouth exam: PRESENT: moist, tongue midline Neck exam: PRESENT: full ROM. ABSENT: carotid bruit, JVD, lymphadenopathy, thyromegaly Respiratory exam: PRESENT: clear to auscultation dell Cardiovascular exam: PRESENT: RRR. ABSENT: diastolic murmur, rubs, systolic murmur Pulses: PRESENT: normal dorsalis pedis pul, +2 pedal pulses bilateral Vascular exam: PRESENT: normal capillary refill GI/Abdominal exam: PRESENT: normal bowel sounds, soft. ABSENT: distended, guarding, mass, organolmegaly, rebound, tenderness Rectal exam: PRESENT: deferred Extremities exam: PRESENT: pedal edema Neurological exam: PRESENT: alert, awake, oriented to person, oriented to place, oriented to time, oriented to situation, CN II-XII grossly intact. ABSENT: motor sensory deficit Psychiatric exam: PRESENT: appropriate affect, normal mood. ABSENT: homicidal ideation, suicidal ideation Skin exam: PRESENT: dry, intact, warm. ABSENT: cyanosis, rash Results Laboratory Results: 07/11/18 05:26 07/12/18 06:55 07/12/18 06:55 Sodium 138.2 Potassium 4.4 Chloride 101 Carbon Dioxide 31 H Anion Gap 6 BUN 56 H Creatinine 1.65 H Est GFR ( Amer) 53 L Est GFR (Non-Af Amer) 44 L Glucose 91 Calcium 8.5 06/24/18 06/24/18 06/24/18 13:58 19:20 19:20 Creatine Kinase CK-MB (CK-2) Troponin I 0.021 0.019 NT-Pro-B Natriuret Pep 7730 H 7630 H 06/25/18 06/25/18 06/25/18 01:45 01:45 07:15 Creatine Kinase 68 63 CK-MB (CK-2) 0.40 Troponin I 0.020 NT-Pro-B Natriuret Pep 06/25/18 06/25/18 06/25/18 07:15 13:08 13:08 Creatine Kinase 62 CK-MB (CK-2) 0.35 0.40 Troponin I 0.021 0.019 NT-Pro-B Natriuret Pep Impressions: Chest X-Ray 06/24/18 12:40 IMPRESSION: Gross cardiomegaly with right basilar atelectasis, scarring, and/or pleural effusion, similar to prior examination. This may be further evaluated by PA and lateral radiographs or CT if desired. Assessment & Plan - Diagnosis (1) Acute diastolic heart failure Is this a current diagnosis for this admission?: Yes Plan: Continues IV Lasix (2) Anasarca Is this a current diagnosis for this admission?: Yes Plan: Reduce the IV Lasix drip (3) Anemia of chronic disease Is this a current diagnosis for this admission?: Yes (4) Nephrotic syndrome Is this a current diagnosis for this admission?: Yes - Time Time Spent with patient: 15-24 minutes Medications reviewed and adjusted accordingly: Yes Anticipated discharge: Other Within: Other - Plan Summary Plan Summary: cont curr med
[2018-07-12] MEDS: NORMAL SALINE 250 ML with FUROSEMIDE 250 MG IV PRN ×2 (17:56)
[2018-07-12] MEDS: PHARMACY COMMUNICATION ORDER MC SCH (17:58)
[2018-07-12] MEDS: SIMVASTATIN 10 MG TABLET PO SCH (22:21)
[2018-07-13] MEDS: POLYVINYL ALCOHOL 1.4% OPH SOLN 15 ML OU PRN (06:43)
[2018-07-13] MEDS: IPRATROPIUM/ALBUTEROL 0.5-2.5 MG/3 ML AMPUL NEB SCH ×3 (07:52→19:49)
[2018-07-13] MEDS: APIXABAN 2.5 MG TABLET PO SCH ×2 (10:26→21:29)
[2018-07-13] MEDS: METOPROLOL TARTRATE 25 MG TABLET PO SCH (10:26)
[2018-07-13] MEDS: DOCUSATE SODIUM 100 MG CAPSULE PO SCH (10:26)
[2018-07-13] MEDS: GUAIFENESIN 600 MG TABLET.SA PO SCH ×2 (10:26→21:29)
[2018-07-13] MEDS: POTASSIUM CHLORIDE 10 MEQ CAPSULE.ER PO SCH (10:26)
[2018-07-13] MEDS: SODIUM CHLORIDE NASAL SPRAY 44 ML NASL SCH ×2 (10:27→21:29)
[2018-07-13] MEDS: PHARMACY COMMUNICATION ORDER MC SCH (18:00)
--- NOTE | 2018-07-13 21:25 | PDOC DISCHARGE SUMMARY ---
General - Admit/Disc Date/PCP Admission Date/Primary Care Provider: 06/24/18 15:25 ZOYA LEONE MD Discharge Date: 07/13/18 - Discharge Diagnosis (1) Acute diastolic heart failure Is this a current diagnosis for this admission?: Yes (2) Anasarca Is this a current diagnosis for this admission?: Yes (3) Chronic atrial fibrillation Is this a current diagnosis for this admission?: Yes (4) Chronic venous hypertension (idiopathic) with inflammation of bilateral lower extremity Is this a current diagnosis for this admission?: Yes - Additional Information Resuscitation Status: Do Not Resuscitate Discharge Diet: Cardiac Discharge Activity: Activity As Tolerated, Balance Activity w/Rest, Weigh Daily Home Medications: RX: Apixaban [Eliquis 2.5 mg Tablet] 2.5 mg PO Q12 03/28/18 RX: Metoprolol Tartrate [Lopressor 25 mg Tablet] 25 mg PO DAILY 03/28/18 RX: Simvastatin [Zocor 10 mg Tablet] 10 mg PO QHS 03/28/18 RX: Torsemide [Demadex 20 mg Tablet] 20 mg PO Q12 03/28/18 RX: Potassium Chloride [Klor-Con M20] 20 meq PO DAILY 06/24/18 RX: Acetaminophen [Tylenol 325 mg Tablet] 650 mg PO Q4HP PRN tablet 07/13/18 History of Present Illness History of Present Illness: ELEONORA SHEFFIELD is a 57 year old male,Patient with history of chronic diastolic heart failure, morbid obesity, nephrotic syndrome,he present with generalized anasarca This has been ongoing problem for this patient, he has tremendous anasarca, the abdominal wall edema is so severe that the abdomen is literally hanging down on the left side of the abdomen. Overall prognosis is extremely poor in this patient I have advised him in the past to consider bariatric surgery is the only hope for any meaningful survival in this patient. Usually he will present in this fashion with anasarca Hospital Course Hospital Course: Patient has tremendous anasarca, he required IV furosemide infusion since admis monico he lost some weight but is still edematous, he was continue on the anticoagulant Eliquis. Patient was not a willing participant in physical therapy. He was seen in consultation by physical therapy but he refused to take part in therapy session. He is extremely sedentary overall prognosis remains very poor in this patient will be discharged home today. He has presently optimized hospital stay there is no more acute event to address. He also has Unna boots in the hospital on this admission because of chronic venous hypertension of the lower extremities Physical Exam Vital Signs: Temp Pulse Resp BP Pulse Ox 97.3 F 82 18 103/61 97 07/13/18 16:09 07/13/18 19:00 07/13/18 16:09 07/13/18 16:09 07/13/18 16:09 Intake & Output 07/12/18 07/13/18 07/14/18 06:59 06:59 06:59 Intake Total 1941 2070 968 Balance 1941 2070 968 Weight 203.4 kg 203.4 kg General appearance: PRESENT: no acute distress Eye exam: PRESENT: PERRLA Respiratory exam: PRESENT: clear to auscultation dell Cardiovascular exam: PRESENT: +S2 Murmur grade: 3 GI/Abdominal exam: PRESENT: soft Neurological exam: PRESENT: alert Results Laboratory Results: 07/11/18 05:26 07/12/18 06:55 06/24/18 06/24/18 06/24/18 13:58 19:20 19:20 Creatine Kinase CK-MB (CK-2) Troponin I 0.021 0.019 NT-Pro-B Natriuret Pep 7730 H 7630 H 06/25/18 06/25/18 06/25/18 01:45 01:45 07:15 Creatine Kinase 68 63 CK-MB (CK-2) 0.40 Troponin I 0.020 NT-Pro-B Natriuret Pep 06/25/18 06/25/18 06/25/18 07:15 13:08 13:08 Creatine Kinase 62 CK-MB (CK-2) 0.35 0.40 Troponin I 0.021 0.019 NT-Pro-B Natriuret Pep Impressions: Chest X-Ray 06/24/18 12:40 IMPRESSION: Gross cardiomegaly with right basilar atelectasis, scarring, and/or pleural effusion, similar to prior examination. This may be further evaluated by PA and lateral radiographs or CT if desired. Qualifiers - * PATIENT BEING DISCHARGED WITH ANY OF THE FOLLOWING DIAGNOSIS: No
[2018-07-13] MEDS: SIMVASTATIN 10 MG TABLET PO SCH (21:29)
[2018-07-14] MEDS: POLYVINYL ALCOHOL 1.4% OPH SOLN 15 ML OU PRN (00:19)
[2018-07-14] MEDS: ACETAMINOPHEN 325 MG TABLET PO PRN (01:00)
[2018-07-14] MEDS: IPRATROPIUM/ALBUTEROL 0.5-2.5 MG/3 ML AMPUL NEB SCH ×3 (08:00→20:07)
[2018-07-14] MEDS: METOPROLOL TARTRATE 25 MG TABLET PO SCH (09:34)
[2018-07-14] MEDS: GUAIFENESIN 600 MG TABLET.SA PO SCH ×2 (09:34→22:18)
[2018-07-14] MEDS: POTASSIUM CHLORIDE 10 MEQ CAPSULE.ER PO SCH (09:34)
[2018-07-14] MEDS: DOCUSATE SODIUM 100 MG CAPSULE PO SCH (09:35)
[2018-07-14] MEDS: APIXABAN 2.5 MG TABLET PO SCH ×2 (09:35→22:16)
[2018-07-14] MEDS: SODIUM CHLORIDE NASAL SPRAY 44 ML NASL SCH ×2 (09:35→22:18)
[2018-07-14] MEDS: FUROSEMIDE 40 MG TABLET PO SCH (22:17)
[2018-07-14] MEDS: SIMVASTATIN 10 MG TABLET PO SCH (22:17)
[2018-07-15] MEDS: POLYVINYL ALCOHOL 1.4% OPH SOLN 15 ML OU PRN (03:48)
[2018-07-15] MEDS: IPRATROPIUM/ALBUTEROL 0.5-2.5 MG/3 ML AMPUL NEB SCH ×3 (08:44→19:57)
[2018-07-15] MEDS: DOCUSATE SODIUM 100 MG CAPSULE PO SCH (09:15)
[2018-07-15] MEDS: APIXABAN 2.5 MG TABLET PO SCH (09:16)
[2018-07-15] MEDS: POTASSIUM CHLORIDE 10 MEQ CAPSULE.ER PO SCH (09:16)
[2018-07-15] MEDS: GUAIFENESIN 600 MG TABLET.SA PO SCH (09:16)
[2018-07-15] MEDS: METOPROLOL TARTRATE 25 MG TABLET PO SCH (09:17)
[2018-07-15] MEDS: FUROSEMIDE 40 MG TABLET PO SCH ×2 (09:17→18:10)
[2018-07-15] MEDS: SODIUM CHLORIDE NASAL SPRAY 44 ML NASL SCH (10:19)
[2018-07-15 21:31] VITALS: BP 104/60
== END 2018-07-15 22:04 | disposition home or self-care (01) | DRG 292 ==
LOC: ER 11:19 → EH 15:25 → 5 20:42
PROVIDERS: ADMIT Internal Medicine; ATTEND Internal Medicine
DX: I11.0 Hypertensive heart disease with heart failure (principal); Z68.44 Body mass index [BMI] 60.0-69.9, adult; I50.33 Acute on chronic diastolic (congestive) heart failure; I48.2 Chronic atrial fibrillation; I87.323 Chronic venous hypertension (idiopathic) with inflammation of bilateral lower extremity; Z66 Do not resuscitate; E66.01 Morbid (severe) obesity due to excess calories; I25.10 Atherosclerotic heart disease of native coronary artery without angina pectoris; D63.8 Anemia in other chronic diseases classified elsewhere; M19.90 Unspecified osteoarthritis, unspecified site; Z79.899 Other long term (current) drug therapy; Z79.02 Long term (current) use of antithrombotics/antiplatelets; Z86.711 Personal history of pulmonary embolism; Z87.19 Personal history of other diseases of the digestive system
CPT/HCPCS: 36415; 71045; 80048; 80053; 80076; 80307; 81001; 82140; 82150; 82550; 82553; 83690; 83735; 83880; 84100; 84439; 84443; 84484; 85025; 85610; 85730; 87040; 87086; 87088; 87186; 93005; 93010; 94640; 94660; 96374; 99291; J1940; J3490; J7050; J7620; P9047

== ENCOUNTER 2018-07-16 03:33 | Emergency (ER) | payer OTHER, MEDICARE, MEDICAID ==
[2018-07-16 05:09] LABS: ABSOLUTE EOSINOPHILS # (AUTO) 0.3 10^3/uL (0.0-0.6); ABSOLUTE LYMPHOCYTES (AUTO) 0.5 10^3/uL (0.5-4.7); ABSOLUTE MONOCYTES (AUTO) 0.4 10^3/uL (0.1-1.4); ABSOLUTE NEUT (AUTO) 4.3 10^3/uL (1.7-8.2); BASOPHILS % (AUTO) 0.7 % (0-2); HEMATOCRIT 31.5 % (37.9-51.0); HEMOGLOBIN 10.3 g/dL (13.5-17.0); LYMPHOCYTES % (AUTO) 9.6 % (13-45); MEAN CORPUSCULAR HEMOGLOBIN 25.9 pg (27.0-33.4); MEAN CORPUSCULAR HGB CONC 32.7 g/dL (32.0-36.0); MEAN CORPUSCULAR VOLUME 79 fl (80-97); MONOCYTES % (AUTO) 7.6 % (3-13); PLATELET COUNT 156 10^3/uL (150-450); RED BLOOD COUNT 3.98 10^6/uL (4.35-5.55); RED CELL DISTRIBUTION WIDTH 18.8 % (11.5-14.0); SEGMENTED NEUTROPHILS % (AUTO) 77.1 % (42-78); TOTAL CELLS COUNTED % (AUTO) 100 %; WHITE BLOOD COUNT 5.6 10^3/uL (4.0-10.5)
--- NOTE | 2018-07-16 05:30 | RADIOLOGY REPORT (SQ) ---
EXAM DESCRIPTION: XR CHEST 1 VIEW COMPLETED DATE/TME: 07/16/2018 04:33 CLINICAL HISTORY: 57 years Male, weakness COMPARISON: One day prior. NUMBER OF VIEWS/TECHNIQUE: 1/AP FINDINGS: Moderate right lower thoracic opacity-effusion, rotation artifact, rightward shift/rotation of the cardiac silhouette.Severe cardiac silhouette enlargement. No pneumothorax. Stable bony thorax. IMPRESSION: No significant change.
[2018-07-16 05:34] LABS: ALANINE AMINOTRANSFERASE 15 U/L (21-72); ALBUMIN 3.7 g/dL (3.5-5.0); ALKALINE PHOSPHATASE 88 U/L (38-126); ANION GAP 10 (5-19); ASPARTATE AMINO TRANSFERASE 19 U/L (17-59); BILIRUBIN,DIRECT 0.6 mg/dL (0.0-0.4); BILIRUBIN,TOTAL 1.4 mg/dL (0.2-1.3); BLOOD UREA NITROGEN 45 mg/dL (7-20); CARBON DIOXIDE 27 mmol/L (22-30); CHLORIDE 103 mmol/L (98-107); CREATINE KINASE 48 U/L (55-170); GLUCOSE 96 mg/dL (75-110); POTASSIUM 4.3 mmol/L (3.6-5.0); SODIUM 140.4 mmol/L (137-145); TOTAL PROTEIN 7.4 g/dL (6.3-8.2)
[2018-07-16 05:45] LABS: CREATINE KINASE MB 0.41 ng/mL (<4.55)
[2018-07-16 05:48] LABS: TROPONIN I 0.035 ng/mL
[2018-07-16] MEDS ORDERED: FUROSEMIDE INJ/PF 40 MG/4 ML SDV IV ONE (06:24)
--- NOTE | 2018-07-16 08:34 | RADIOLOGY REPORT (SQ) ---
EXAM DESCRIPTION: ANKLE RIGHT COMPLETE COMPLETED DATE/TIME: 07/16/2018 8:16 am REASON FOR STUDY: fall, injury COMPARISON: None. NUMBER OF VIEWS: Three views right ankle. LIMITATIONS: Osteopenia and technique limits. Limiting artifact from overlying soft tissues, likely induration. FINDINGS: Generalized soft tissue swelling. Probable laceration or ulcer posteriorly along the calc aneus. External artifacts are present. Osteopenic. No gross displaced fracture but suboptimal eval uation. OTHER: No other significant finding. IMPRESSION: As above. TECHNICAL DOCUMENTATION: JOB ID: [id number] Reading location - IP/workstation name: [email or web address]
[2018-07-16 09:05] LABS: TROPONIN I 0.038 ng/mL
--- NOTE | 2018-07-16 09:15 | ER Document Report ---
ED General - General Chief Complaint: General Weakness Stated Complaint: WEAKNESS Time Seen by Provider: 07/16/18 06:03 Notes: Patient is a 57-year-old male with many chronic medical conditions that was recently discharged in the hospital yesterday, after being treated for 2 weeks for acute exacerbation of CHF, he states that he got home, and early this morning he fell out of his chair, and injured his right ankle. He has pain in his right ankle he describes as a 6 out of 10. He describes it as a throbbing aching sensation, worsened with any movement of his ankle. He states that he did not feel ready to be discharged to home, but states that he is of physical therapy, and refused to be evaluated by them 2 days prior to his discharge. He states he still feels short of breath, denies having any chest pain, nausea, vomiting. Past Medical History: CHF, atrial fibrillation, hypertension, gastritis, colitis, chronic lower extremity wounds Past Surgical History: Tonsillectomy, tooth extractions Social History: Former smoker, denies current alcohol or drug use. Family History: Reviewed and noncontributory for presenting illness Allergies: Reviewed, see documented allergy list. REVIEW OF SYSTEMS: Other than noted above, the 12 point review of systems was reviewed with the patient and were negative, all pertinent findings are included in the HPI. PHYSICAL EXAMINATION: Vital signs reviewed, nursing noted reviewed. GENERAL: Chronically ill-appearing male in mild to moderate respiratory distress, increased work of breathing HEAD: Atraumatic, normocephalic. EYES: extraocular movements intact, sclera anicteric, right mild conjunctival injection, with discharge, left conjunctiva appear normal. ENT: nares patent, oropharynx clear without exudates. Moist mucous membranes. NECK: Normal range of motion, supple without lymphadenopathy LUNGS: Breath sounds severely diminished on exam particularly at the bases, with crackles noted, increased work of breathing HEART: Heart rate tachycardic, irregular rhythm ABDOMEN: Obese, nontender, anasarca noted, no fluid wave, ventral midline hernia in the upper abdomen, nontender to palpate, and reducible. No Rebound, guarding or rigidity EXTREMITIES: Severe bilateral lower extremity peripheral edema, 4+ pitting, bilateral wound dressings are currently on the patient's lower extremities. Mild right lateral malleolar tenderness with palpation. No gross deformity. NEUROLOGICAL: No focal neurological deficits. Moves all extremities spontaneously Motor and sensory grossly intact on exam. PSYCH: He is mildly anxious, but answering questions appropriately. SKIN: Warm, Dry, normal turgor, TRAVEL OUTSIDE OF THE [place] IN LAST 30 DAYS: No - Related Data Allergies/Adverse Reactions: No Known Allergies Allergy (Verified 01/31/18 16:08) Past Medical History - Social History Smoking Status: Former Smoker Chew tobacco use (# tins/day): No Frequency of alcohol use: None Drug Abuse: None Family History: CAD, COPD, CVA, DM, Hypertension Patient has suicidal ideation: No Patient has homicidal ideation: No - Past Medical History Cardiac Medical History: Reports: Hx Atrial Fibrillation, Hx Congestive Heart Failure, Hx Coronary Artery Disease, Hx Hypercholesterolemia, Hx Hypertension, Hx Peripheral Vascular Disease, Hx Pulmonary Embolism Pulmonary Medical History: Reports: Hx COPD, Hx Sleep Apnea Renal/ Medical History: Reports: Hx Renal Insufficiency. Denies: Hx Peritoneal Dialysis GI Medical History: Reports: Hx Gastritis, Hx Ulcerative Colitis Musculoskeletal Medical History: Reports Hx Arthritis Psychiatric Medical History: Denies: Hx Depression Past Surgical History: Reports: Hx Tonsillectomy, Other - Tooth extraction - Immunizations Hx Diphtheria, Pertussis, Tetanus Vaccination: No Physical Exam - Vital signs Vitals: Resp BP Pulse Ox 22 H 146/56 H 93 07/16/18 04:00 07/16/18 04:00 07/16/18 04:00 Course - Re-evaluation Re-evalutation: Patient seen and examined vital signs reviewed. Laboratory data and imaging were ordered as appropriate for the patient's presenting symptoms and complaint, with consideration of any critical or life threatening conditions that may be associated with their obtained history and exam as noted above. Patient was treated with IV Lasix, IV metoprolol 5 mg, for his mild atrial fibrillation with rapid ventricular response. Heart rate was in the low 120s. He did respond well to the 5 mg of Lopressor, heart rate improved into the upper 80s low 90s. Results were reviewed when available and demonstrated improved BNP, renal function, and chest x-ray from priors. His troponin was trended x2, did not change, he has a history of a mildly elevated troponin, secondary to his congestive heart failure. The patient was re-evaluated and was stable, x-ray of his ankle negative as noted below Evaluation was most consistent with ankle injury, A. fib with RVR. I did discuss this case with the physician on-call for the patient's primary Dr. Edwards, he stated that the patient refused physical therapy prior to discharge, and they were discussing possible placement, but the patient wanted to go home and not go to a skilled facility, and therefore refused therapy, and states that the patient was optimized on treatment prior to discharge, and does not warrant admission at this time. I did agree with this, the patient's blood work, chest x-ray, were at the patient's best, and they have been in a long time, x-rays of his ankle were negative. I discussed with the patient that admitting him to the hospital would only further worsen his condition and decondition him further, he needs to go home, take his medications as directed, he is provided with a prescription for [place] to take for pain in his ankle. Results were discussed with the patient at this point, after careful consideration I feel that that patient can be discharged from the emergency department, the patient was educated treatments and reasons to return to the emergency department based on their presumed diagnosis as noted above, they were advised to followup with a primary care physician in 2-3 days. Patient was agreeable to plan of care. *Note is created using voice recognition software and may contain spelling, syntax or grammatical errors. Laboratory 07/16/18 07/16/18 07/16/18 04:46 04:46 04:46 WBC 5.6 RBC 3.98 L Hgb 10.3 L Hct 31.5 L MCV 79 L MCH 25.9 L MCHC 32.7 RDW 18.8 H Plt Count 156 Seg Neutrophils % 77.1 Lymphocytes % 9.6 L Monocytes % 7.6 Eosinophils % 5.0 Basophils % 0.7 Absolute Neutrophils 4.3 Absolute Lymphocytes 0.5 Absolute Monocytes 0.4 Absolute Eosinophils 0.3 Absolute Basophils 0.0 Sodium 140.4 Potassium 4.3 Chloride 103 Carbon Dioxide 27 Anion Gap 10 BUN 45 H Creatinine 1.50 H Est GFR ( Amer) 59 L Est GFR (Non-Af Amer) 49 L Glucose 96 Calcium 9.0 Total Bilirubin 1.4 H Direct Bilirubin 0.6 H Neonat Total Bilirubin Not Reportable Neonat Direct Bilirubin Not Reportable Neonat Indirect Bili Not Reportable AST 19 ALT 15 L Alkaline Phosphatase 88 Creatine Kinase 48 L CK-MB (CK-2) 0.41 Troponin I 0.035 NT-Pro-B Natriuret Pep Total Protein 7.4 Albumin 3.7 07/16/18 08:21 WBC RBC Hgb Hct MCV MCH MCHC RDW Plt Count Seg Neutrophils % Lymphocytes % Monocytes % Eosinophils % Basophils % Absolute Neutrophils Absolute Lymphocytes Absolute Monocytes Absolute Eosinophils Absolute Basophils Sodium Potassium Chloride Carbon Dioxide Anion Gap BUN Creatinine Est GFR ( Amer) Est GFR (Non-Af Amer) Glucose Calcium Total Bilirubin Direct Bilirubin Neonat Total Bilirubin Neonat Direct Bilirubin Neonat Indirect Bili AST ALT Alkaline Phosphatase Creatine Kinase CK-MB (CK-2) Troponin I 0.038 NT-Pro-B Natriuret Pep 6430 H Total Protein Albumin Chest X-Ray 07/16/18 04:33 IMPRESSION: No significant change. Ankle X-Ray 07/16/18 06:24 IMPRESSION: As above. 07/16/18 10:25 - Vital Signs Vital signs: Temp Pulse Resp BP Pulse Ox 99.4 F 24 H 117/75 100 07/16/18 08:32 07/16/18 10:11 07/16/18 10:11 07/16/18 08:22 - Laboratory Result Diagrams: 07/16/18 04:46 07/16/18 04:46 Laboratory results interpreted by me: 07/16/18 07/16/18 07/16/18 04:46 04:46 08:21 RBC 3.98 L Hgb 10.3 L Hct 31.5 L MCV 79 L MCH 25.9 L RDW 18.8 H Lymphocytes % 9.6 L BUN 45 H Creatinine 1.50 H Est GFR ( Amer) 59 L Est GFR (Non-Af Amer) 49 L Total Bilirubin 1.4 H Direct Bilirubin 0.6 H ALT 15 L Creatine Kinase 48 L NT-Pro-B Natriuret Pep 6430 H Discharge - Discharge Clinical Impression: Atrial fibrillation with RVR Ankle injury Qualifiers: Encounter type: initial encounter Laterality: right Qualified Code(s): S99.911A - Unspecified injury of right ankle, initial encounter Conjunctivitis Qualifiers: Conjunctivitis type: acute Acute conjunctivitis type: unspecified Laterality: right Qualified Code(s): H10.31 - Unspecified acute conjunctivitis, right eye Condition: Stable Disposition: HOME, SELF-CARE Instructions: Atrial Fibrillation ([facility]), Sprained Ankle ([facility]) Additional Instructions: Please use the eyedrop 4 times daily in your right eye, 1 drop, take the pain medication as directed, and follow-up with your primary care physician, take all other prescribed medications as directed. Prescriptions: Hydrocodone/Acetaminophen [[place] 5-325 Tablet] 1 each PO Q8H PRN #10 tablet PRN Reason: ankle pain Referrals: ZOYA LEONE MD [Primary Care Provider] - Follow up in 3-5 days
[2018-07-16] MEDS ORDERED: METOPROLOL TARTRATE PF/INJ 5 MG/5 ML SDV IV ONE (09:16)
[2018-07-16] MEDS ORDERED: CIPROFLOXACIN HCL 0.3% OPH SOLN 2.5 ML OD ONE (09:22)
--- NOTE | 2018-07-16 12:41 | EKG REPORT ---
SEVERITY:- ABNORMAL ECG - ATRIAL FIBRILLATION MULTIFORM VENTRICULAR PREMATURE COMPLEXES INFERIOR INFARCT, OLD CONSIDER ANTERIOR INFARCT : Confirmed by: Karen Worthy MD 16-Jul-2018 12:41:12
[2018-07-16] MEDS ORDERED: ACETAMINOPHEN 325 MG TABLET PO ONE (13:52)
[2018-07-16] MEDS ORDERED: HYDROXYZINE PAMOATE 25 MG CAPSULE PO ONE (15:25)
[2018-07-16 16:47] VITALS: BP 106/64
== END 2018-07-16 16:20 | disposition home or self-care (01) ==
LOC: ER 03:33
DX: I48.91 Unspecified atrial fibrillation (principal); S99.911A Unspecified injury of right ankle, initial encounter; W08.XXXA Fall from other furniture, initial encounter; Y92.009 Unspecified place in unspecified non-institutional (private) residence as the place of occurrence of the external cause; H10.31 Unspecified acute conjunctivitis, right eye; I11.0 Hypertensive heart disease with heart failure; I50.9 Heart failure, unspecified
CPT/HCPCS: 93005; 99285; 96374; 96375; 36415; 82553; 82550; 85025; 80053; 84484; 83880; 73610; 71045; 93010; J1940; J3490 ×2

== ENCOUNTER 2018-07-17 16:15 | Emergency (ER) | payer OTHER, MEDICARE, MEDICAID ==
[2018-07-17 18:11] LABS: ABSOLUTE EOSINOPHILS # (AUTO) 0.4 10^3/uL (0.0-0.6); ABSOLUTE LYMPHOCYTES (AUTO) 0.5 10^3/uL (0.5-4.7); ABSOLUTE MONOCYTES (AUTO) 0.7 10^3/uL (0.1-1.4); ABSOLUTE NEUT (AUTO) 4.2 10^3/uL (1.7-8.2); BASOPHILS % (AUTO) 0.8 % (0-2); EOSINOPHILS % (AUTO) 6.3 % (0-6); HEMATOCRIT 28.9 % (37.9-51.0); HEMOGLOBIN 9.3 g/dL (13.5-17.0); MEAN CORPUSCULAR HEMOGLOBIN 25.7 pg (27.0-33.4); MEAN CORPUSCULAR HGB CONC 32.1 g/dL (32.0-36.0); MEAN CORPUSCULAR VOLUME 80 fl (80-97); MONOCYTES % (AUTO) 11.8 % (3-13); PLATELET COUNT 144 10^3/uL (150-450); RED BLOOD COUNT 3.61 10^6/uL (4.35-5.55); RED CELL DISTRIBUTION WIDTH 19.1 % (11.5-14.0); SEGMENTED NEUTROPHILS % (AUTO) 72.1 % (42-78); TOTAL CELLS COUNTED % (AUTO) 100 %; WHITE BLOOD COUNT 5.8 10^3/uL (4.0-10.5)
[2018-07-17 18:31] LABS: ALANINE AMINOTRANSFERASE 15 U/L (21-72); ALBUMIN 3.4 g/dL (3.5-5.0); ALKALINE PHOSPHATASE 75 U/L (38-126); ANION GAP 9 (5-19); ASPARTATE AMINO TRANSFERASE 23 U/L (17-59); BILIRUBIN,DIRECT 1.1 mg/dL (0.0-0.4); BILIRUBIN,TOTAL 2.5 mg/dL (0.2-1.3); BLOOD UREA NITROGEN 40 mg/dL (7-20); CARBON DIOXIDE 28 mmol/L (22-30); CHLORIDE 103 mmol/L (98-107); GLUCOSE 75 mg/dL (75-110); POTASSIUM 4.2 mmol/L (3.6-5.0); SODIUM 139.9 mmol/L (137-145); TOTAL PROTEIN 6.9 g/dL (6.3-8.2)
[2018-07-17 18:32] LABS: ACETAMINOPHEN < 10 ug/mL (10-30); ALCOHOL < 10 mg/dL (NONE DETECTED); SALICYLATE < 1.0 mg/dL (2.0-20.0)
[2018-07-17 19:07] LABS: APPEARANCE,URINE SLIGHTLY-CLOUDY; BILIRUBIN,URINE NEGATIVE (NEGATIVE); COLOR,URINE AMBER; GLUCOSE, URINE NEGATIVE (NEGATIVE); KETONES,URINE NEGATIVE (NEGATIVE); LEUKOCYTE ESTERASE,URINE NEGATIVE (NEGATIVE); NITRITE,URINE NEGATIVE (NEGATIVE); PROTEIN,URINE 30 mg/dL (NEGATIVE); URINE SPECIFIC GRAVITY 1.015
[2018-07-17 19:15] LABS: URINE AMPHETAMINES SCREEN NEGATIVE; URINE BARBITURATES SCREEN NEGATIVE; URINE BENZODIAZEPINES SCREEN NEGATIVE; URINE COCAINE SCREEN NEGATIVE; URINE MARIJUANA (THC) SCREEN NEGATIVE; URINE METHADONE SCREEN NEGATIVE; URINE PHENCYCLIDINE SCREEN NEGATIVE
[2018-07-17] MEDS ORDERED: APIXABAN 2.5 MG TABLET PO ONE (19:44)
--- NOTE | 2018-07-17 19:52 | ER Document Report ---
ED General - General Chief Complaint: Psych Problem Stated Complaint: SUICIDAL IDEATION Time Seen by Provider: 07/17/18 16:41 Mode of Arrival: Stretcher Information source: Patient, Emergency Med Personnel, [facility] Records Notes: 57-year-old male who is severely obese with congestive heart failure, coronary artery disease, peripheral vascular disease, hypertension, chronic atrial fibrillation, significant anasarca presents via EMS with chief complaint of suicidal ideation. Patient states that because of his amish he would never harm himself but because of his condition and inability to care for himself he has become more hopeless. Patient was recently admitted to the hospital for 2 weeks for a CHF exacerbation. He states at that time he was offered half-way but he had a bad experience at [facility] and declined. He states that he does have home health aide come twice a week but he is unable to perform any daily activities independently. He has called EMS several times for help but was eventually told that they would not be able to continuously come out to the house. Patient was seen yesterday after a trip and fall. Imaging of the ankle was obtained and patient was discharged home. TRAVEL OUTSIDE OF THE [place] IN LAST 30 DAYS: No - HPI Onset: Other Onset/Duration: Persistent Quality of pain: Achy Associated symptoms: Body/muscle aches, Nonproductive cough, Shortness of breath. denies: Fever, Nausea, Vomiting Exacerbated by: Denies Relieved by: Denies Similar symptoms previously: Yes Recently seen / treated by doctor: Yes - Related Data Allergies/Adverse Reactions: No Known Allergies Allergy (Verified 07/17/18 16:32) Past Medical History - General Information source: Patient, Emergency Med Personnel, [facility] Records - Social History Smoking Status: Unknown if Ever Smoked Frequency of alcohol use: None Drug Abuse: None Lives with: Alone Family History: CAD, COPD, CVA, DM, Hypertension Patient has suicidal ideation: Yes Patient has homicidal ideation: No - Past Medical History Cardiac Medical History: Reports: Hx Atrial Fibrillation, Hx Congestive Heart Failure, Hx Coronary Artery Disease, Hx Hypercholesterolemia, Hx Hypertension, Hx Peripheral Vascular Disease, Hx Pulmonary Embolism Pulmonary Medical History: Reports: Hx COPD, Hx Sleep Apnea Renal/ Medical History: Reports: Hx Renal Insufficiency. Denies: Hx Peritoneal Dialysis GI Medical History: Reports: Hx Gastritis, Hx Ulcerative Colitis Musculoskeletal Medical History: Reports Hx Arthritis Psychiatric Medical History: Denies: Hx Depression Past Surgical History: Reports: Hx Tonsillectomy, Other - Tooth extraction - Immunizations Hx Diphtheria, Pertussis, Tetanus Vaccination: No Review of Systems - Review of Systems Constitutional: Weight gain EENT: Eye discharge Cardiovascular: Orthopnea. denies: Chest pain Respiratory: Cough - Chronic, Short of breath - Chronic Gastrointestinal: Abdomen distended. denies: Nausea Genitourinary: Incontinence Male Genitourinary: denies: Testicular pain Musculoskeletal: Muscle pain, Muscle stiffness Skin: Change in color Hematologic/Lymphatic: No symptoms reported Neurological/Psychological: Anxiety -: Yes All other systems reviewed and negative Physical Exam - Notes Notes: 07/17/18 19:51 PHYSICAL EXAMINATION: GENERAL: Morbidly obese, no acute distress. HEAD: Atraumatic, normocephalic. EYES: Pupils equal round and reactive to light, extraocular movements intact, sclera anicteric, conjunctiva are normal. ENT: Nares patent, oropharynx clear without exudates. Moist mucous membranes. NECK: Normal range of motion, supple without lymphadenopathy LUNGS: Breath sounds clear to auscultation bilaterally and equal. No wheezes rales or rhonchi. HEART: Regular rate and rhythm without murmurs ABDOMEN: Distended abdomen, nontender. No guarding, no rebound. No masses appreciated. Musculoskeletal: Mid range of motion due to obesity.,1+ pitting edema no cyanosis. NEUROLOGICAL: Cranial nerves grossly intact. Normal speech. Normal sensory, motor exams PSYCH:+ Anxiety, depression, suicidal ideation. SKIN: Bark-like lower extremities. Right lower extremity with wound dressing. Course - Re-evaluation Re-evalutation: Laboratory 07/17/18 07/17/18 07/17/18 18:03 18:03 18:11 WBC 5.8 RBC 3.61 L Hgb 9.3 L Hct 28.9 L MCV 80 MCH 25.7 L MCHC 32.1 RDW 19.1 H Plt Count 144 L Seg Neutrophils % 72.1 Lymphocytes % 9.0 L Monocytes % 11.8 Eosinophils % 6.3 H Basophils % 0.8 Absolute Neutrophils 4.2 Absolute Lymphocytes 0.5 Absolute Monocytes 0.7 Absolute Eosinophils 0.4 Absolute Basophils 0.0 Sodium 139.9 Potassium 4.2 Chloride 103 Carbon Dioxide 28 Anion Gap 9 BUN 40 H Creatinine 1.56 H Est GFR ( Amer) 56 L Est GFR (Non-Af Amer) 46 L Glucose 75 Calcium 9.0 Total Bilirubin 2.5 H Direct Bilirubin 1.1 H Neonat Total Bilirubin Not Reportable Neonat Direct Bilirubin Not Reportable Neonat Indirect Bili Not Reportable AST 23 ALT 15 L Alkaline Phosphatase 75 Total Protein 6.9 Albumin 3.4 L Urine Color IGOR Urine Appearance SLIGHTLY-CLOUDY Urine pH 5.0 Ur Specific [place] 1.015 Urine Protein 30 H Urine Glucose (UA) NEGATIVE Urine Ketones NEGATIVE Urine Blood NEGATIVE Urine Nitrite NEGATIVE Urine Bilirubin NEGATIVE Urine Urobilinogen 2.0 H Ur Leukocyte Esterase NEGATIVE Urine WBC (Auto) 2 Urine RBC (Auto) 1 Urine Bacteria (Auto) TRACE Squamous Epi Cells Auto 3 Urine Mucus (Auto) RARE Urine Ascorbic Acid NEGATIVE Salicylates < 1.0 L Urine Opiates Screen Urine Methadone Screen Acetaminophen < 10 L Ur Barbiturates Screen Ur Phencyclidine Scrn Ur Amphetamines Screen U Benzodiazepines Scrn Urine Cocaine Screen U Marijuana (THC) Screen Serum Alcohol < 10 07/17/18 18:11 WBC RBC Hgb Hct MCV MCH MCHC RDW Plt Count Seg Neutrophils % Lymphocytes % Monocytes % Eosinophils % Basophils % Absolute Neutrophils Absolute Lymphocytes Absolute Monocytes Absolute Eosinophils Absolute Basophils Sodium Potassium Chloride Carbon Dioxide Anion Gap BUN Creatinine Est GFR ( Amer) Est GFR (Non-Af Amer) Glucose Calcium Total Bilirubin Direct Bilirubin Neonat Total Bilirubin Neonat Direct Bilirubin Neonat Indirect Bili AST ALT Alkaline Phosphatase Total Protein Albumin Urine Color Urine Appearance Urine pH Ur Specific [place] Urine Protein Urine Glucose (UA) Urine Ketones Urine Blood Urine Nitrite Urine Bilirubin Urine Urobilinogen Ur Leukocyte Esterase Urine WBC (Auto) Urine RBC (Auto) Urine Bacteria (Auto) Squamous Epi Cells Auto Urine Mucus (Auto) Urine Ascorbic Acid Salicylates Urine Opiates Screen NEGATIVE Urine Methadone Screen NEGATIVE Acetaminophen Ur Barbiturates Screen NEGATIVE Ur Phencyclidine Scrn NEGATIVE Ur Amphetamines Screen NEGATIVE U Benzodiazepines Scrn NEGATIVE Urine Cocaine Screen NEGATIVE U Marijuana (THC) Screen NEGATIVE Serum Alcohol 07/17/18 20:[address] Edwards who is familiar with the patient. He states on his last admission patient was offered half-way but refused. I did inform him that the patient now does want to be placed in a half-way facility. He states that this can be done from the emergency department by case management in the morning if the patient's last admission is within the last 30 days. Patient was only discharged 4 days ago. Patient has remained stable throughout his ED course. Social work consult placed for half-way placement. 07/17/18 22:37 - Laboratory Result Diagrams: 07/17/18 18:03 07/17/18 18:03 Laboratory results interpreted by me: 07/17/18 07/17/18 07/17/18 18:03 18:03 18:11 RBC 3.61 L Hgb 9.3 L Hct 28.9 L MCH 25.7 L RDW 19.1 H Plt Count 144 L Lymphocytes % 9.0 L Eosinophils % 6.3 H BUN 40 H Creatinine 1.56 H Est GFR ( Amer) 56 L Est GFR (Non-Af Amer) 46 L Total Bilirubin 2.5 H Direct Bilirubin 1.1 H ALT 15 L Albumin 3.4 L Urine Protein 30 H Urine Urobilinogen 2.0 H Salicylates < 1.0 L Acetaminophen < 10 L - Diagnostic Test Radiology reviewed: Image reviewed Discharge - Discharge Clinical Impression: Edema of both legs, Morbid obesity, Unable to ambulate, Anasarca, Body mass index 50.0-59.9, adult CHF (congestive heart failure) Qualifiers: Heart failure type: unspecified Heart failure chronicity: unspecified Qualified Code(s): I50.9 - Heart failure, unspecified Conjunctivitis Qualifiers: Conjunctivitis type: unspecified Laterality: bilateral Qualified Code(s): H10.9 - Unspecified conjunctivitis Condition: Fair Referrals: ZOYA LEONE MD [Primary Care Provider] - Follow up as needed
[2018-07-17] MEDS ORDERED: APIXABAN 2.5 MG TABLET ONE (21:16)
[2018-07-17] MEDS: FUROSEMIDE INJ/PF 20 MG/2 ML SDV IV ONE ×2 (21:39→21:45)
[2018-07-17] MEDS ORDERED: FUROSEMIDE 20 MG TABLET PO ONE (21:43)
[2018-07-17] MEDS ORDERED: ACETAMINOPHEN 325 MG TABLET PO ONE (23:17)
[2018-07-18] MEDS: APIXABAN 2.5 MG TABLET PO SCH ×2 (11:01→18:06)
[2018-07-18] MEDS: METOPROLOL SUCCINATE 25 MG TAB.SR.24H PO SCH (11:01)
[2018-07-18] MEDS: TORSEMIDE 20 MG TABLET PO SCH ×2 (11:02→18:06)
[2018-07-18] MEDS ORDERED: IPRATROPIUM/ALBUTEROL 0.5-2.5 MG/3 ML AMPUL NEB ONE (13:49)
--- NOTE | 2018-07-18 16:15 | PSYCHOLOGICAL NOTE ---
Psych Note - Psych Note Date seen by psych provider: 07/18/18 Time seen by psych provider: 11:30 Psych Note: Reason for consult: SI Contact permission: Patient is a 57 yo housebound male presenting to the ED reporting SI. Patient called EMS 4x this weekend for assistance in self-care as he is morbidly obese. Chart review shows that patient does have home health care 2 days/week and that 2 weeks ago he declined assisted living. 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 The [facility] sent EMS to his home. Patient today denies any SI or concerns reporting "nothing now" and relays that he had a lot of anxiety going back and forth to the hospital due to fluid retention. He discloses that this weekend was overwhelming as he fell and hurt his foot. He asserts that he can't take care of himself. Patient denies SI, HI, and AV/H, denies prior MH dx or treatment, drug or ETOH abuse. His mood today is "alright". Patient is alert and oriented x 4. Mood is euthymic "alright" with flat affect. Patient denies SI, HI, and AV/H, does not appear to be responding to internal stimuli and no delusions are noted. Conversational speech is WNL for rate, tone, and prosody. Eye contact was intermittently maintained. Intellectual abilities are estimated with the average range. Attention/concentration was WNL while, insight, judgment, and impulse control were poor. Diagnosis: 278.00 (E66.9) Overweight or Obesity No medication recommendations at this time. Impression/Plan: Patient is psychiatrically clear from acute psychiatric services due to patient is not at risk of harm to self or others aeb patient denies SI, HI, and AV/H, does not appear to be responding to internal stimuli and no delusions were noted. Patient reports primary concern of not being able to care for himself any longer and feeling "overwhelmed by going back and forth to the ED". Patient has a consult with the transition social worker who was updated on his presentation by this Electromechanical Inspector. Consulted Dr. Quintero in the care and treatment of this patient and ED physician who is in agreement with recommendation and disposition.
--- NOTE | 2018-07-18 19:15 | ER Document Report ---
Doctor's Note Notes: 07/18/18 19:14 57-year-old with a myriad of chronic medical problems, currently we are seeking placement for this gentleman while treating his chronic medical problems. He was given a breathing treatment while in emergency department to try and help with the shortness of breath. This gentleman his current course is to undergo continued monitoring in emergency department as a social hold until appropriate placement can be obtained through social work for him. There is some discussion about VA benefits for this gentleman though this seems unlikely.
[2018-07-18] MEDS ORDERED: LORAZEPAM 1 MG TABLET PO ONE (21:33)
[2018-07-18] MEDS: SIMVASTATIN 10 MG TABLET PO SCH (21:44)
[2018-07-19] MEDS: APIXABAN 2.5 MG TABLET PO SCH ×2 (09:47→17:23)
[2018-07-19] MEDS: METOPROLOL SUCCINATE 25 MG TAB.SR.24H PO SCH (09:47)
--- NOTE | 2018-07-19 09:58 | ER Document Report ---
Doctor's Note Notes: 07/19/18 09:56 Patient was evaluated today. Patient is on currently 4 L nasal cannula looks to be baseline for the patient laboratory studies were reviewed patient's vital signs were also reviewed. Patient does have some breakdown of the skin on the right leg between a fat fold. A barrier cream has been ordered to be applied. Reviewed patient's last visit and in discussion with the patient as patient states she is able to stand and move. We will see if we can initiate PT OT to continue to work with the patient.
[2018-07-19] MEDS: TORSEMIDE 20 MG TABLET PO SCH ×2 (10:02→17:23)
--- NOTE | 2018-07-19 12:59 | EKG REPORT ---
SEVERITY:- ABNORMAL ECG - ATRIAL FIBRILLATION INFERIOR INFARCT, OLD CONSIDER ANTERIOR INFARCT LATERAL LEADS ARE ALSO INVOLVED PROLONGED QT INTERVAL : Confirmed by: Juan Daniel Rodriguez MD 19-Jul-2018 12:59:03
[2018-07-20] MEDS: SIMVASTATIN 10 MG TABLET PO SCH (00:50)
[2018-07-20] MEDS: METOPROLOL SUCCINATE 25 MG TAB.SR.24H PO SCH (09:44)
[2018-07-20] MEDS ORDERED: FUROSEMIDE 40 MG TABLET PO ONE (14:00)
--- NOTE | 2018-07-20 14:12 | ER Document Report ---
Doctor's Note Notes: 07/20/18 14:10 Rounds: Chart reviewed and patient interviewed. Patient has a history of congestive heart failure and generalized anasarca. He says he is on furosemide 40 mg twice a day. However, he is not able to ambulate and he sits in a chair all the time. This edema is a chronic problem for him. He is morbidly obese weighing close to 400 pounds.. He lives by himself and cannot take care of himself. He has a brother who is 8 years older and in poor health. Patient needs detention care. Vital signs are all essentially normal. Lab studies show a hemoglobin of 9.3 and a creatinine of 1.56 but otherwise labs are essentially unremarkable. Patient appears to be medically stable for transfer or discharge. Emmy Dee MD
[2018-07-20 20:24] VITALS: BP 118/73
== END 2018-07-20 20:33 | disposition home health service (06) ==
LOC: ER 16:15
DX: I11.0 Hypertensive heart disease with heart failure (principal); I50.9 Heart failure, unspecified; E66.01 Morbid (severe) obesity due to excess calories; Z68.43 Body mass index [BMI] 50.0-59.9, adult; R60.1 Generalized edema; H10.9 Unspecified conjunctivitis; R06.02 Shortness of breath; M79.10 Myalgia, unspecified site; R05 Cough; R32 Unspecified urinary incontinence; F41.9 Anxiety disorder, unspecified; F32.9 Major depressive disorder, single episode, unspecified; R45.851 Suicidal ideations; J44.9 Chronic obstructive pulmonary disease, unspecified; L98.9 Disorder of the skin and subcutaneous tissue, unspecified; I25.10 Atherosclerotic heart disease of native coronary artery without angina pectoris; Z79.899 Other long term (current) drug therapy; Z60.2 Problems related to living alone
CPT/HCPCS: 93005; 94640; 99285; 36415; 80307 ×4; 85025; 80053; 81001; 93010; 97530; 97116; J7620; C1758; J1940